=== PATIENT | female | born 1965 | race Caucasian/White ===

== ENCOUNTER 2024-01-11 19:51 | Inpatient (IN) | payer MEDICARE, MEDICAID, SELFPAY ==
[2024-01-11] VITALS (13 sets, daily range): BP systolic 107–163; BP diastolic 68–83; PULSE 66–83; RESP 16; TEMP 36.5; O2SAT 93–99; BMI 47.6; BMI 47.5; BMI 52.5
[2024-01-11] MEDS: EPINEPHRINE HCL PF 1 MG/ML AMPULE 0.3 MG SUBQ (19:52)
[2024-01-11] MEDS: IPRATROPIUM/ALBUTEROL SULFATE 3 ML AMPUL.NEB IH ×3 (19:55→22:06)
[2024-01-11] MEDS: METHYLPREDNISOLONE SOD SUCC PF 125 MG/2 ML VIAL IVP (19:55)
--- NOTE | 2024-01-11 19:58 | XR_ITS ---
[place] [id number] Patient Name: ESTELLE CARSON MRN: [id number] date: 1965 Sex: F Assigned Patient Location: ED.MAIN Current Patient Location: ED.MAIN Accession/Order Number: [id number] Exam Date: 01/11/2024 20:00 Report Date: 01/11/2024 21:19 At the request of: GIORGIO MARKER Procedure: XR chest 1V EXAMINATION: XR chest 1V, , 01/11/2024 8:00 PM EDT INDICATION: SOB HISTORY: Ordering Provider Reason for Exam: SOB Technologist Note: Additional: COMPARISON: XR CHEST 2 V Date 03/18/2022 TECHNIQUE: Chest x-ray: One view. FINDINGS: No pneumothorax, pleural effusion or focal airspace consolidation. Heart is normal in size. Bony thorax is unremarkable. XR/XR chest 1V IMPRESSION: No acute cardiopulmonary process. Electronically authenticated by: BARBIE HUGGINS Date: 01/11/2024 21:19
[2024-01-11] MEDS: 0.9 % SODIUM CHLORIDE 500 ML IV (20:00)
[2024-01-11 20:05] LABS: Basophils Absolute Auto 0.1 10^3/uL (0.0-0.1); Basophils Percent Auto 0.6 % (0.2-2.0); Eosinophils Absolute Auto 0.2 10^3/uL (0.0-0.7); Eosinophils Percent Auto 1.5 % (0.9-7.0); Hemoglobin 12.8 g/dL (12.0-16.0); Immature Granulocytes Abs Auto 0.12 10^3/uL (0.00-0.03); Immature Granulocytes Pct Auto 1.1 % (0.0-0.5); Lymphocytes Absolute Auto 3.1 10^3/uL (1.2-3.8); Lymphocytes Percent Auto 28.8 % (20.5-60.0); Mean Corpuscular HGB Conc 30.5 g/dL (29.9-35.2); Mean Corpuscular Volume 78.7 fL (81.0-99.0); Mean Platelet Volume 9.5 fL (9.5-13.5); Monocytes Absolute Auto 0.7 10^3/uL (0.3-0.8); Monocytes Percent Auto 6.4 % (1.7-12.0); Neutrophils Absolute Auto 6.7 10^3/uL (1.4-6.5); Neutrophils Percent Auto 61.6 % (43.0-75.0); Platelet Count 430 10^3/uL (150-450); Red Blood Count 5.34 10^6/uL (4.20-5.40); Red Cell Distribution Width 15.6 % (11.0-15.0); White Blood Count 10.9 10^3/uL (4.0-11.0)
--- NOTE | 2024-01-11 20:14 | ED_ITS ---
HPI - SOB/Dyspnea General Chief Complaint: Shortness of Breath/Dyspnea Stated Complaint: Code Blue Time Seen by Provider: 01/11/24 19:57 Source: patient Mode of arrival: Wheelchair Limitations: no limitations History of Present Illness HPI Narrative: This 58-year-old female who has a history of COPD who is oxygen dependent is brought to the emergency department by her daughter. The patient had come to this hospital to pick her daughter who is a nurse up for work. The daughter noted that the patient was not wearing her oxygen and the patient stated to her daughter that she had forgot to bring it. She was audibly wheezing in the car and the daughter told her she would need to get a breathing treatment as soon as she got home but her condition worsened and her daughter took control of the car and brought her to the emergency department. Upon arrival she was in moderate to severe respiratory distress but not unresponsive. She was taken to room 6 and placed on BiPAP. She was given a DuoNeb, subcutaneous epinephrine, IV Solu- Medrol with rapid clinical improvement. She has not had a fever and denies any chest pain. Related Data Allergies Allergy/AdvReac Type Severity Reaction Status Date / Time No Known Drug Allergies Allergy Verified 01/11/24 20:12 Review of Systems ROS Status of ROS 10 or more systems reviewed and unremark able except as noted in history and below Exam Narrative Exam Narrative: Vital signs and Nursing Notes reviewed: General: Awake, somewhat becoming poorly responsive upon arrival with respiratory distress and audible expiratory wheezing HEENT: Normocephalic atraumatic, mucous membranes are moist and pink, eyes are clear, normal conjunctiva, vision is grossly intact Chest: Bilateral inspiratory and expiratory wheezing with accessory muscle use and respiratory distress upon arrival, no rhonchi or rales CVS: Regular rate and rhythm S1-S2, no murmurs rubs or gallops, pulses are brisk and equal bilaterally ABD: Soft, nondistended, nontender, no rebound guarding or rigidity, bowel sounds are normal, no pulsatile masses appreciated Extremities: Moving all extremities, no lower extremity tenderness or swelling noted, negative Homans' sign, pulses are brisk and equal bilaterally Skin: Normal in appearance without rash,pallor, petechiae or purpura Neuro: No focal deficits Constitutional Vital Signs, click to edit/add: Last Vital Signs Temp 97.7 F 01/11/24 20:03 Pulse 71 01/11/24 20:03 Resp 28 H 01/11/24 20:03 Pulse Ox 93 L 01/11/24 20:40 O2 Del Method BIPAP 01/11/24 20:40 FiO2 28 01/11/24 20:40 Course Vital Signs Vital signs: Vital Signs Pulse Rate 80 01/11/24 19:55 Respiratory Rate 30 H 01/11/24 19:55 Pulse Oximetry 99 01/11/24 19:55 Oxygen Delivery Method BIPAP 01/11/24 19:55 Fraction of Inspired Oxygen 100 01/11/24 19:55 Temperature 97.7 F 01/11/24 20:03 Pulse Rate 71 01/11/24 20:03 Respiratory Rate 28 H 01/11/24 20:03 Pulse Oximetry 93 L 01/11/24 20:40 Oxygen Delivery Method BIPAP 01/11/24 20:40 Fraction of Inspired Oxygen 28 01/11/24 20:40 MDM - SOB/Dyspnea MDM Narrative Medical decision making narrative: This 58-year-old female with a history of COPD/asthma is brought to the emergency department by her daughter for respiratory distress that started immediately prior to arrival. The patient is home oxygen dependent and came to pick her daughter up from this facility without wearing her oxygen. She started having an asthma attack in the car which worsened prior to arrival. Upon arrival she was in moderate respiratory distress with diffuse expiratory wheezing. She was taken to room 6 and immediately evaluated by myself, the nursing staff and respiratory therapy. She was placed on BiPAP and given a DuoNeb. She was given subcu epi, Solu-Medrol, IV magnesium and IV fluids with clinical improvement. Shortly after her treatment she was able to speak short sentences. She denies any chest pain. She has had some upper respiratory symptoms in the past several days and she was swabbed for COVID and influenza. She has remained hemodynamically stable in the emergency department. She has a normal white count and hemoglobin. EKG done after she was calm enough to get an EKG was a sinus rhythm at 66 bpm with no acute changes. Troponin, BNP and electrolytes are normal with exception of a mildly elevated creatinine at 1.09. Checks x-ray shows chronic changes with a stable infiltrate in the right upper lobe that was present in 2021 as well and appears unchanged. Final x-ray report is pending at the time of this dictation. The patient does see Dr. Trujillo, pulmonology. Case was discussed with the hospitalist and she is excepted for admission to the ICU. Medical Records Attestation: I reviewed the patient's medical records. Lab Data Attestation: I reviewed the patient's lab results. Labs: Lab Results 01/11/24 Range/Units 19:50 WBC 10.9 (4.0-11.0) 10^3/uL RBC 5.34 (4.20-5.40) 10^6/uL Hgb 12.8 (12.0-16.0) g/dL Hct 42.0 (36.0-48.0) % MCV 78.7 L (81.0-99.0) fL MCH 24.0 L (26.7-34.0) pg MCHC 30.5 (29.9-35.2) g/dL RDW 15.6 H (11.0-15.0) % Plt Count 430 (150-450) 10^3/uL MPV 9.5 (9.5-13.5) fL Neut % (Auto) 61.6 (43.0-75.0) % Lymph % (Auto) 28.8 (20.5-60.0) % Harmon % (Auto) 6.4 (1.7-12.0) % Eos % (Auto) 1.5 (0.9-7.0) % Baso % (Auto) 0.6 (0.2-2.0) % Neut # (Auto) 6.7 H (1.4-6.5) 10^3/uL Lymph # (Auto) 3.1 (1.2-3.8) 10^3/uL Harmon # (Auto) 0.7 (0.3-0.8) 10^3/uL Eos # (Auto) 0.2 (0.0-0.7) 10^3/uL Baso # (Auto) 0.1 (0.0-0.1) 10^3/uL Abs Immat Gran (auto) 0.12 H (0.00-0.03) 10^3/uL Imm/Tot Granulo (auto) 1.1 H (0.0-0.5) % Sodium 139 (136-145) mmol/L Potassium 4.7 (3.5-5.1) mmol/L Chloride 100 (98-107) mmol/L Carbon Dioxide 30.9 (21.0-32.0) mmol/L Anion Gap 12.8 BUN 33.0 H (7.0-18.0) mg/dL Creatinine 1.09 H (0.55-1.02) mg/dL Est GFR ( Amer) >60 (>=60) Est GFR (Non-Af Amer) 51 L (>=60) BUN/Creatinine Ratio 30.3 Glucose 92 (74-106) mg/dL Calcium 9.5 (8.5-10.1) mg/dL Total Bilirubin 0.2 (0.2-1.0) mg/dL AST 11 L (15-37) U/L ALT 27 (14-59) U/L Alkaline Phosphatase 141 H (46-116) U/L Troponin I High Sens 4.1 (4.0-51.3) pg/mL NT-Pro-B Natriuret Pep 44.0 (<=900.0) pg/mL Total Protein 7.7 (6.4-8.2) g/dL Albumin 3.6 (3.4-5.0) g/dL Globulin 4.1 g/dL Albumin/Globulin Ratio 0.9 ECG Data Attestation: I personally reviewed and interpreted this ECG as follows: (Sinus rhythm at 66 bpm, low voltage, no acute ST segment elevation or T wave inversion) Critical Care Time Critical Care Time Critical Care Time: Yes Total Critical Care Time: 35 Attestation: Patient was evaluated and treatment after a CODE BLUE was called from the lobby for respiratory distress, treatment was provided including placement on BiPAP, subcu epi, treatment of respiratory distress and asthma exacerbation with clinical improvement Discharge Plan Discharge Chief Complaint: Shortness of Breath/Dyspnea Clinical Impression: Asthma with acute exacerbation, Acute exacerbation of chronic obstructive pulmonary disease Print Language: Czech Referrals: Garry Desir MD [Primary Care Provider] - 1 week
[2024-01-11] MEDS: LORAZEPAM 2 MG/ML VIAL 1 MG IV (20:16)
[2024-01-11 20:24] LABS: Alanine Aminotransferase 27 U/L (14-59); Albumin Globulin Ratio 0.9; Albumin Level 3.6 g/dL (3.4-5.0); Alkaline Phosphatase 141 U/L (46-116); Anion Gap 12.8; Aspartate Amino Transferase 11 U/L (15-37); BUN Creatinine Ratio 30.3; Bilirubin Total 0.2 mg/dL (0.2-1.0); Calcium 9.5 mg/dL (8.5-10.1); Carbon Dioxide 30.9 mmol/L (21.0-32.0); Chloride 100 mmol/L (98-107); Estimated GFR (African America >60 (>=60); Estimated GFR (Non-African Ame 51 (>=60); Globulin 4.1 g/dL; Glucose 92 mg/dL (74-106); Potassium 4.7 mmol/L (3.5-5.1); Sodium 139 mmol/L (136-145); Total Protein 7.7 g/dL (6.4-8.2); Troponin I High Sensitivity 4.1 pg/mL (4.0-51.3)
[2024-01-11] MEDS: MAGNESIUM SULFATE IN WATER 2 GM/50 ML PREMIX IV (20:30)
--- NOTE | 2024-01-11 20:42 | PC.NURSE ---
PATIENT TAKEN FROM CAR IN SEVERE RESPIRATORY DISTRESS TO ROOM 6 WHERE SHE WAS PLACED ON BI-PAP IMMEDIATELY 17/12 AND 60% 2 RESPIRATORY TECHS 3 NURSES AND AT CART SIDE.
[2024-01-11 22:07] LABS: Influenza Virus A Antigen Negative; Influenza Virus B Antigen Negative; Internal Control Within Normal Limits; SARS-CoV-2 Ag NEGATIVE (NEGATIVE)
[2024-01-11] MEDS: ENOXAPARIN SODIUM 40 MG/0.4 ML SYRINGE SUBQ (23:01)
[2024-01-11] MEDS: CEFTAZIDIME 2,000 MG in 0.9 % SODIUM CHLORIDE 100 ML 200 MG IV (23:02)
[2024-01-11] MEDS: 0.9 % SODIUM CHLORIDE 1,000 ML 75 ML IV (23:02)
--- NOTE | 2024-01-11 23:40 | PC.NURSE ---
Bilat toes red/purple
[2024-01-12] VITALS (83 sets, daily range): BP systolic 110–139; BP diastolic 60–92; PULSE 74–110; RESP 16; TEMP 36.4–36.8; O2SAT 91–97
[2024-01-12] MEDS: IPRATROPIUM/ALBUTEROL SULFATE 3 ML AMPUL.NEB IH ×4 (02:35→20:15)
[2024-01-12] MEDS: CEFTAZIDIME 2,000 MG in 0.9 % SODIUM CHLORIDE 100 ML 200 MG IV (05:25)
--- OUTSIDE RECORDS SUMMARY | 2024-01-12 06:07 | XMS_ITS | CCD ---
Author Organization [facility] CliniSywy Care Team Providers Care Patient Registrar Name Role Phone Morena Bravo Unavailable Vipul Jimenez Unavailable Radha Markham Unavailable Morena Bravo Unavailable DO Morena Bravo Primary Care Provider [phone] DO Morena Bravo Attending Provider Jaquelin Ac Unavailable Clara Adams Unavailable DO Cristal Bass Emergency Provider DO Morena Bravo Primary Care Provider [phone] DO Morena Bravo Attending Provider DO Salvatore Rasmussen Emergency Provider DO Amish Mills Admit Provider DO Amish Mills Attending Provider [phone] MATTHEW, DR SCHMITT Primary Care Unavailable PAY, DR POLANCO Admitting Unavailable PAY, DR POLANCO Attending Unavailable KRISTY, DR GIFTY Emery Consulting Unavailable PAY, DR POLANCO Consulting Unavailable MATTHEW, DR SCHMITT Primary Care Unavailable NELLIE, DR LUDIVINA Martinez Consulting Unavailable SAMSA, NIRAV Admitting Unavailable SAMSA, NIRAV Attending Unavailable OFELIA, DR CLEMONS Consulting Unavailable SAMSA, NIRAV Consulting Unavailable MARKELSIE MENCHACA Consulting Unavailable JORDAN MARCIAL Consulting Unavailable DO Shelly Morena E Primary Care Provider [phone] DO Cristal Bass Emergency Provider Schwerer, DO Morena E Attending Provider DO Salvatore Rasmussen Emergency Provider DO Amish Mills Admit Provider DO Amish Mills Attending Provider MD Jaquelin Ac Attending Provider [phone] Schwerer, DO Morena E Primary Care Provider [phone] Schwerer, DO Morena E Referring Provider Self, Referral Attending Provider Unavailable Schwerer, DO Morena E Primary Care Provider [phone] Schwerer, DO Morena E Attending Provider JeffMayo Unavailable Schwerer, DO Morena E Primary Care Provider Schwerer, DO Morena E Attending Provider DO Cassandra Nirav P Attending Provider MD Sanya Valadez Attending Provider MD Maday Jarvis Referring Provider [phone] Sanya Valadez Admitting Unavai lable Sanya Valadez Attending Unavai lable Schwerer, Morena E Primary Care Unavailable Schwerer, Morena E Attending Unavailable Schwerer, Morena E Admitting Unavailable Schwerer, Morena E Primary Care Unavailable Schwerer, Morena E Primary Care Unavailable Schwerer, Morena E Attending Unavailable Schwerer, Morena E Admitting Unavailable Schwerer, Morena E Primary Care Unavailable Schwerer, Morena E Attending Unavailable Schwerer, Morena E Admitting Unavailable Schwerer, Morena E Primary Care Unavailable Samsa, Nirav P Admitting Unavailable Samsa, Inrav P Attending Unavailable Samsa, Nirav P Attending Unavailable Schwerer, Morena E Primary Care Unavailable Samsa, Nirav P Admitting Unavailable Samsa, Nirav P Admitting Unavailable Samsa, Nirav P Attending Unavailable Morena Bravo Primary Care Unavailable Maday Jarvis Referring Unavailable Morena Bravo Primary Care Unavailable Sanya Valadez Admitting Unavacory labgerard Valadez, Sanya Mcneil Attending Morena Donaldson Primary Care Unavailable Sanya Valadez Admitting Unavai labgerard Valadez, Sanya Mcneil Attending DO Morena Donaldson Primary Care Provider [phone] DO Nirav Trujillo Attending Provider MD Sanya Valadez Attending Provider Allergies Allergy Classification Reported Allergen(s) Allergy Type Date of Onset Reaction(s) Facility (20 sources) Codeine Drug Allergy dizziness/nause a [employer] Other (1 source) Codeine Drug Allergy [address] [place] [address] Repository Medications Current Medications Medication Drug Class(es) Dates Sig (Normalized) Sig (Original) 0.25 MG, 0.5 MG Dose 3 ML semaglutide 0.68 MG/ML Pen Injector [Ozempic] (3 sources) inject 0.5 mg by subcutaneous injection every week Ozempic (0.25 or 0.5 MG/DOSE) 2 MG/3ML 0.5 mg Subcutaneous weekly for 28 days Active albuterol 0.83 mg/ml inhalation solution (20 sources) beta2-Adrenergic Agonist Start: 02-24-2022 Albuterol Sulfate (2.5 MG/3ML) 0.083% 3 mL as needed Inhalation every 6 hrs Feb, Active Start: 02-24-2022 Albuterol Sulf ate (2.5 MG/3ML) 0.083% 3 mL as needed Inhalation every 6 hrs Feb, Active Start: 03-22-2021 take 2 puff(s) by in halation every four to six hours as needed Albuterol Sulfate HFA 108 (90 Base) MCG/ACT 2 puffs as needed Inhalation every 4-6 hours for 14 days Mar, Active Start: 03-16-2019 End: 02-24-2022 take 1 puff(s) by inhalation every four to six hours Albuterol Sulfate (Proventil Hfa) 90 mcg/actuation Hfa Aerosol Inhaler Discontinued 2 PUFF INHALATION EVERY 4-6 HOURS February 06, 2022 12:00am February 24, 2022 8:51pm Start: 06-28-2018 End: 03-16-2019 take 2.5 mg by inhalation four times daily Albuterol Sulfate Active 2.5 MG INHALATION Four times daily - Respiratory 0 March 16, 2019 3:22pm Start: 06-27-2018 End: 03-16-2019 take 1 puff(s) by inhalation every four to six hours Albuterol Sulfate Discontinued 2 PUFF INHALATION EVERY 4-6 HOURS June 27, 2018 12:00am March 16, 2019 2:20pm Start: 06-27-2018 End: 03-16-2019 take 1 puff(s) by inhalation every four to six hours Albuterol Sulfate Discontinued 2 PUFF INHALATION EVERY 4-6 HOURS June 27, 2018 1:00am March 16, 2019 3:20pm Start: 06-03-2018 End: 06-26-2018 take 2.5 mg by inhalation every four to six hours Albuterol Sulfate Discontinued 2.5 MG INHALATION EVERY 4-6 HOURS June 03, 2018 1:00am June 26, 2018 3:10pm take 1 puff(s) by in halation every four hours as needed Albuterol Sulfate HFA 108 (90 Base) MCG/ACT 1 puff as needed Inhalation every 4 hrs for 90 days Active take 1 puff(s) by in halation every four hours as needed Albuterol Sulfate HFA 108 (90 Base) MCG/ACT 1 puff as needed Inhalation every 4 hrs for 90 days Active take 1 puff(s) by in halation every four hours as needed Albuterol Sulfate HFA 108 (90 Base) MCG/ACT 1 puff as needed Inhalation every 4 hrs for 90 days Active amoxicillin 875 mg / clavulanate 125 mg oral tablet (20 sources) Penicillin-class Antibacterial Start: 03-18-2022 take 1 tablet by mouth every twelve hours Amoxicillin-Pot Clavulanate 875-125 MG 1 tablet Orally every 12 hrs for 10 day(s) Mar, Active Start: 12-23-2017 End: 12-29-2017 take 1 tablet by mouth twice daily Amoxicillin-Pot Clavulanate Discontinued 1 TAB PO Twice daily 14 7 December 23, 2017 12:00am December 29, 2017 8:34am aspirin 81 mg delayed release oral tablet (11 sources) Platelet Aggregation Inhibitor, Nonsteroidal Anti-inflammatory Drug Start: 10-22-2023 End: 10-28-2023 Aspirin (Adult Low Dose Aspirin) 81 mg tablet,delayed release (DR/EC) Active 81 MG PO Every morning October 28, 2023 12:00am atorvastatin 40 mg oral tablet (20 sources) HMG-CoA Reductase Inhibitor Start: 12-11-2023 take 40 mg by mouth once daily Atorvastatin Active 40 MG PO Daily December 11, 2023 11:28am Start: 12-02-2023 End: 12-11-2023 take 1 tablet by mouth once daily at bedtime Atorvastatin Discontinued 0 .ROUTE .COMPLEX 90 December 02, 2023 10:42am December 11, 2023 11:28am TAKE 1 TABLET BY MOUTH EVERYDAY AT BEDTIME Start: 10-22-2023 End: 12-02-2023 take 40 mg by mouth once daily in the morning Atorvastatin Discontinued 40 MG PO Every morning October 28, 2023 12:00am December 02, 2023 10:42am Start: 10-26-2020 End: 10-22-2023 take 10 mg by mouth at bedtime Atorvastatin Discontinu ed 10 MG PO Bedtime December 31, 2020 12:00am August 28, 2023 1:52pm azithromycin 250 mg oral tablet (20 sources) Macrolide Antimicrobial Start: 03-18-2022 Azithromycin 250 MG 2 tablet on the first day, then 1 tablet daily for 4 days Orally Once a day for 5 day(s) Mar, Active Start: 10-01-2020 End: 12-31-2020 take 500 mg by mouth once daily Azithromycin Discontinued 500 MG PO Daily 3 3 October 01, 2020 12:00am December 31, 2020 6:31am Start: 03-16-2019 End: 06-22-2019 Azithromycin Discontinued 25 0 MG PO Daily 2 2 March 16, 2019 1:00am June 22, 2019 9:40am next dose due 03/17 bumetanide 0.5 mg oral tablet (20 sources) Loop Diuretic Start: 07-21-2023 take 1 tablet by mouth twice daily Bumetanide Active 0 .ROUTE .COMPLEX 180 July 21, 2023 3:44pm TAKE 1 TABLET BY MOUTH TWICE A DAY Start: 10-01-2020 End: 07-21-2023 take 0.5 mg by mouth twice daily Bumetanide Discontinued 0.5 MG PO BID@0800,1600 60 30 October 01, 2020 12:00am July 21, 2023 3:44pm Start: 05-17-2020 End: 09-27-2020 take 0.5 mg by mouth twice daily Bumetanide Discontinued 0.5 MG PO Twice daily May 17, 2020 1:00am September 27, 2020 1:12pm 24 hr buPROPion hydrochloride 150 mg extended release oral tablet (20 sources) Aminoketone Start: 12-24-2023 take 150 mg by mouth once daily Bupropion Hcl Active 150 MG PO Daily December 24, 2023 12:00am Start: 12-29-2017 End: 01-25-2018 take 100 mg by mouth twice daily Bupropion Hcl Discontinued 100 MG PO BID@0800,1400 60 December 29, 2017 12:00am January 25, 2018 8:28am Cpap (Continuous Positive rway Pressure) (13 sources) Start: 08-27-2023 Cpap (Continuo us Positive Airway Pressure) Active 0 .Route August 27, 2023 12:00am DME [facility] 2 liters oxygen bleed Start: 08-27-2023 Cpap (Continuo us Positive Airway Pressure) Active 0 .ROUTE August 27, 2023 12:00am DME [facility] 2 liters oxygen bleed Cxneaqxincy-Flfyxanci-Opftou er (18 sources) Start: 10-28-2023 Fglslyuwleb-Wgknshrzl-Gzfxvf er (Trelegy Ellipta) 200-62.5-25 mcg blister with device Active 1 INH INHALATION every day at noon October 28, 2023 12:00am Rinse after use. Dispense 3 inhalers Start: 08-27-2023 End: 10-28-2023 Tmduxhwhlah-Zpeoshcae-Fgjczt er (Trelegy Ellipta) 200-62.5-25 mcg blister with device Discontinued 1 INH INHALATION Daily 180 90 August 27, 2023 12:00am October 28, 2023 8:21am Rinse after use. Dispense 3 inhalers Start: 08-27-2023 Fluticasone-Um eclidin-Vilanter (Trelegy Ellipta) 200-62.5-25 mcg blister with device Active 1 INH INHALATION Daily 180 90 August 27, 2023 12:00am Rinse after use. Dispense 3 inhalers 120 actuat formoterol fumarate 0.005 mg/actuat / mometasone furoate 0.2 mg/actuat metered dose inhaler (3 sources) Corticosteroid, beta2-Adrenergic Agonist Start: 11-03-2019 take 1 puff(s) by inhalation twice daily Mometasone-Formoterol (Dulera) 200-5 mcg/actuation HFA aerosol inhaler Active 1 PUFF INHALATION Twice daily November 03, 2019 12:00am Ibuprofen (20 sources) Nonsteroidal Anti-inflammatory Drug Start: 06-19-2023 take 1 tablet by mouth three times daily at mealtime as needed Ibuprofen Active 0 .ROUTE .COMPLEX June 19, 2023 10:25am TAKE 1 TABLET BY MOUTH THREE TIMES A DAY WITH FOOD OR MILK NEEDED Start: 06-18-2023 End: 06-19-2023 take 1 tablet by mouth three times daily at mealtime as needed Ibuprofen Discontinued MG PO Three times daily June 18, 2023 1:00am June 19, 2023 10:25am Free[employer]: TAKE 1 TABLET BY MOUTH THREE TIMES A DAY WITH FOOD OR MILK NEEDED; Note: Source Status: Taking; Refills: 1; Qty: 90 Tablet; Provider: Shelly Berg ( ) Start: 11-22-2021 take 1 tablet by rico th three times daily at mealtime as needed Ibuprofen 600 MG 1 tablet with food or milk as needed Orally Three times a day Nov, Active Start: 11-03-2019 End: 09-27-2020 take 800 mg by mouth three times daily Ibuprofen Discontinued 800 MG PO Three times daily November 03, 2019 12:00am September 27, 2020 9:23am Start: 06-03-2018 End: 06-26-2018 take 200 mg by mouth every four to six hours Ibuprofen Discontinued 200 MG PO EVERY 4-6 HOURS June 03, 2018 1:00am June 26, 2018 3:13pm ipratropium bromide 0.2 mg/ml inhalation solution (20 sources) Anticholinergic Start: 08-20-2023 End: 10-22-2023 Ipratropium [place] Active 0.5 MG INHALATION Every 8 hours October 22, 2023 12:54pm Free[employer]: INHALE CONTENTS OF 1 VIAL PER NEBULIZER EVERY 8 HOURS FOR 30 DAYS*J44.1*; Note: Source Status: Not-Taking\PRN; Refills: 2; Qty: 250 Milliliter; Provider: Shelly Berg ( ) Start: 02-24-2022 take 2.5 mL by inhal ation every eight hours Ipratropium [place] 0.02 % 2.5 mL Inhalation every 8 hrs for 30 day(s) with albuterol neb Feb, Active Start: 06-28-2018 End: 09-27-2020 take 0.5 mg by inhalation four times daily Ipratropium [place] Discontinued 0.5 MG INHALATION Four times daily - Respiratory 0 March 16, 2019 3:22pm September 27, 2020 9:23am Ipratropium Brom roland 0.02 % INHALE CONTENTS OF 1 VIAL PER NEBULIZER EVERY 8 HOURS FOR 30 DAYS*J44.1* for 30 Not-Taking/PRN Ipratropium Brom roland 0.02 % INHALE CONTENTS OF 1 VIAL PER NEBULIZER EVERY 8 HOURS FOR 30 DAYS*J44.1* for 30 Active levoFLOXacin 750 mg oral tablet (20 sources) Quinolone Antimicrobial Start: 02-24-2022 take 1 tablet by mouth once daily Levaquin 750 MG 1 tablet Orally Once a day Feb, Active Start: 03-19-2018 End: 04-14-2018 take 750 mg by mouth every twenty-four hours Levofloxacin Discontinued 750 MG PO Q24H 2 March 19, 2018 1:00am April 14, 2018 5:13pm lisinopril 2.5 mg oral tablet (20 sources) Angiotensin Converting Enzyme Inhibitor Start: 12-03-2023 take 1 tablet by mouth once daily Lisinopril Active 0 .ROUTE .COMPLEX 90 December 03, 2023 1:53pm TAKE 1 TABLET BY MOUTH EVERY DAY Start: 10-26-2020 End: 08-01-2024 take 2.5 mg by mouth once daily Lisinopril Discontinued 2.5 MG PO Daily December 31, 2020 12:00am July 17, 2023 7:54am methylPREDNISolone 4 mg oral tablet (4 sources) Corticosteroid Start: 03-22-2021 Medrol (Dontrell) 4 MG as directed Orally for daily dose take half with breakfast half with dinner for 6 days Mar, Active 24 hr metoprolol succinate 25 mg extended release oral tablet (11 sources) beta-Adrenergic Jacinda Start: 10-22-2023 End: 10-28-2023 take 25 mg by mouth once daily in the morning Metoprolol Succinate Active 25 MG PO Every morning October 28, 2023 12:00am Oxygen (13 sources) Start: 08-27-2023 Oxygen Active 0 .Route August 27, 2023 12:00am 2 liters continuous [facility] Start: 08-27-2023 Oxygen Active 0 .ROUTE August 27, 2023 12:00am 2 liters continuous [facility] ozempic (0.25 or 0.5 mg/dose) 2 mg/3ml solution pen-injector (5 sources) inject 0.5 mg by subcutaneous injection every week Ozempic (0.25 or 0.5 MG/DOSE) 2 MG/3ML INJECT 0.5MG VIA SUBCUTANEOUS ROUTE ONCE WEEKLY for 28 Active inject 0.5 mg by sub cutaneous injection every week Ozempic (0.25 or 0.5 MG/DOSE) 2 MG/3ML 0.5 mg Subcutaneous weekly Active microencapsulated potassium chloride 20 meq extended release oral tablet (20 sources) Start: 07-21-2023 take 20 mEq by mouth twice daily Potassium Chloride Active 20 MEQ PO Twice daily 180 July 21, 2023 3:43pm Start: 07-21-2023 End: 07-21-2023 take 1 tablet by mouth every twelve hours at mealtime Potassium Chloride Discontinued 20 MEQ PO Twice daily July 21, 2023 12:00am July 21, 2023 3:44pm FreeTextSig: TAKE 1 TABLET BY MOUTH EVERY 12 HOURS WITH FOOD; Note: Source Status: Taking; Refills: 1; Qty: 180 Tablet; Provider: Shelly Berg ( ) Start: 06-14-2021 End: 07-21-2023 Potassium Chloride (Klor-Con M10) 10 mEq tablet,ER particles/crystals Discontinued 20 MEQ PO Twice daily 60 June 14, 2021 2:41pm July 21, 2023 3:38pm Start: 11-03-2019 End: 06-14-2021 Potassium Chloride (Klor-Con M10) 10 mEq tablet,ER particles/crystals Discontinued 20 MEQ PO Three times daily November 03, 2019 12:00am June 14, 2021 2:41pm take 1 tablet by rico th every twelve hours at mealtime Klor-Con M20 20 MEQ TAKE 1 TABLET BY MOUTH EVERY 12 HOURS WITH FOOD for 90 Active take 1 tablet by rico th every twelve hours Klor-Con M20 20 MEQ 1 tablet with food Orally BID for 90 day(s) Active take 1 tablet by rico th every eight hours Klor-Con M20 20 MEQ 1 tablet with food Orally three times a day for 90 days Active 0.25 mg, 0.5 mg dose 1.5 ml semaglutide 1.34 mg/ml pen injector (4 sources) Start: 06-02-2022 Ozempic (0.25 or 0.5 MG/DOSE) 2 MG/1.5ML as directed Subcutaneous weekly for 30 days 0.25 mg weekly x 4 weeks then 0.5 mg weekly x 30 May, 2022 Active Semaglutide (20 sources) Start: 11-10-2023 inject 0.5 mg by subcutaneous injection every week Semaglutide (Ozempic) 0.25 mg or 0.5 mg (2 mg/3 mL) pen injector Active 0 .ROUTE .COMPLEX 3 November 10, 2023 7:55am INJECT 0.5MG VIA SUBCUTANEOUS ROUTE ONCE WEEKLY 28 Start: 09-10-2023 End: 11-10-2023 inject 0.5 mg by subcutaneous injection every week Semaglutide Discontinued 0.5 MG SUBCUT every week September 10, 2023 1:00pm November 10, 2023 7:55am FreeTextSig: INJECT 0.5MG VIA SUBCUTANEOUS ROUTE ONCE WEEKLY; Note: Source Status: Taking; Refills: 5; Qty: 3 Milliliter; Provider: Shelly Berg ( ) Start: 09-10-2023 inject 0.5 mg by sub cutaneous injection every week Semaglutide Active 0.5 MG SUBCUT every week September 10, 2023 1:00pm FreeTextSig: INJECT 0.5MG VIA SUBCUTANEOUS ROUTE ONCE WEEKLY; Note: Source Status: Taking; Refills: 5; Qty: 3 Milliliter; Provider: Shelly Berg ( ) Start: 09-10-2023 inject 0.5 mg by sub cutaneous injection every week Semaglutide Active MG SUBCUT every week September 10, 2023 1:00pm FreeTextSig: INJECT 0.5MG VIA SUBCUTANEOUS ROUTE ONCE WEEKLY; Note: Source Status: Taking; Refills: 5; Qty: 3 Milliliter; Provider: Shelly Berg ( ) Start: 07-27-2023 End: 09-10-2023 inject 0.5 mg by subcutaneous injection every week Semaglutide Discontinued MG SUBCUT July 27, 2023 12:00am September 10, 2023 1:00pm FreeTextSig: INJECT 0.5MG VIA SUBCUTANEOUS ROUTE ONCE WEEKLY; Note: Source Status: Taking; Refills: 5; Qty: 3 Milliliter; Provider: Shelly Berg ( ) Start: 07-27-2023 inject 0.5 mg by sub cutaneous injection every week Semaglutide Active MG SUBCUT July 27, 2023 12:00am FreeTextSig: INJECT 0.5MG VIA SUBCUTANEOUS ROUTE ONCE WEEKLY; Note: Source Status: Taking; Refills: 5; Qty: 3 Milliliter; Provider: Shelly Berg ( ) topiramate 25 mg oral tablet (20 sources) Start: 05-17-2020 take 25 mg by mouth once daily in the morning Topiramate Active 25 MG PO Every morning May 17, 2020 1:00am Trelegy Ellipta 100-62.5-25 MCG/INH (5 sources) Start: 11-22-2021 take 1 puff(s) by inhalation once daily Trelegy Ellipta 100-62.5-25 MCG/INH 1 puff Inhalation Once a day for 30 day(s) samples given Nov, Active Completed/Discontinued Medications Medication Drug Class(es) Dates Sig (Normalized) Sig (Original) acetaminophen 325 mg oral tablet (20 sources) Start: 01-23-2017 End: 12-23-2017 take 2 tablets by mouth every four hours Acetaminophen (Tylenol) 325 mg Tablet Discontinued 650 MG PO Q4H January 23, 2017 12:00am December 23, 2017 1:10pm benzonatate 100 mg oral capsule (20 sources) Non-narcotic Antitussive Start: 03-16-2019 End: 06-22-2019 Benzonatate Discontinued 100 MG PO Three times daily March 16, 2019 1:00am June 22, 2019 9:41am take scheduled for the next 3-4 days, then may change to prn cough benztropine mesylate 1 mg oral tablet (20 sources) Anticholinergic, Antihistamine Start: 06-03-2018 End: 06-26-2018 take 1 mg by mouth twice daily Benztropine Discontinued 1 MG PO Twice daily June 03, 2018 1:00am June 26, 2018 3:11pm caffeine 200 mg oral tablet (20 sources) Central Nervous System Stimulant, Methylxanthine Start: 01-23-2017 End: 12-23-2017 take 1 tablet by mouth twice daily Caffeine (Vivarin) 200 mg Tablet Discontinued 200 MG PO Twice daily January 23, 2017 12:00am December 23, 2017 1:10pm cephalexin 500 mg oral capsule (20 sources) Cephalosporin Antibacterial Start: 04-14-2018 End: 04-21-2018 take 1 capsule by mouth every twelve hours Cephalexin (Keflex) 500 mg capsule Discontinued 500 MG PO Q12H 14 April 14, 2018 1:00am April 21, 2018 1:02am Start: 10-26-2017 End: 12-21-2017 take 2 capsules by mouth twice daily Cephalexin (Keflex) 500 mg capsule Discontinued 1000 MG PO Twice daily 28 October 26, 2017 12:00am December 21, 2017 1:34pm 168 hr cloNIDine 0.05147 mg/hr transdermal system (20 sources) Central alpha-2 Adrenergic Agonist Start: 06-03-2018 End: 06-26-2018 apply 1 dose transdermal route every week Clonidine Discontinued 1 PATCH TRANSDERML every week June 03, 2018 1:00am June 26, 2018 3:12pm diclofenac sodium 75 mg delayed release oral tablet (20 sources) Nonsteroidal Anti-inflammatory Drug Start: 05-17-2020 End: 06-12-2021 take 75 mg by mouth twice daily Diclofenac Sodium Discontinued 75 MG PO Twice daily May 17, 2020 1:00am June 12, 2021 1:29pm Diclofenac & Menthol-Camphor 75 & 3-3 MG & % (20 sources) Diclofenac & Menthol-Camphor 75 & 3-3 MG & % as directed Combination twice daily Not-Taking/PRN Diclofenac & Men thol-Camphor 75 & 3-3 MG & % as directed Combination twice daily Active dicyclomine hydrochloride 20 mg oral tablet (20 sources) Anticholinergic Start: 01-17-2021 End: 08-27-2023 take 20 mg by mouth three times daily Dicyclomine Discontinued 20 MG PO Three times daily February 24, 2022 12:00am August 27, 2023 9:28am diphenhydrAMINE hydrochloride 25 mg oral capsule (20 sources) Histamine-1 Receptor Antagonist Start: 09-27-2020 End: 12-31-2020 take 1 capsule by mouth three times daily Diphenhydramine Hcl (Banophen) 25 mg Capsule Discontinued 25 MG PO Three times daily September 27, 2020 12:00am December 31, 2020 6:31am Start: 03-13-2019 End: 11-03-2019 take 1 tablet by mouth three times daily Diphenhydramine Hcl (Banophen) 25 mg Tablet Discontinued 25 MG PO Three times daily March 13, 2019 1:00am November 03, 2019 1:14pm famotidine 40 mg oral tablet (20 sources) Histamine-2 Receptor Antagonist Start: 03-13-2019 End: 06-12-2021 take 1 tablet by mouth once daily at bedtime Famotidine (Pepcid) 40 mg Tablet Discontinued 40 MG PO Daily at bedtime March 13, 2019 1:00am June 12, 2021 1:29pm Fluticasone-Umecl idin-Vilanter (20 sources) Anticholinergic, Corticosteroid, beta2-Adrenergic Agonist Start: 02-24-2022 End: 08-27-2023 Fluticasone-Umeclid in-Vilanter (Trelegy Ellipta) 100-62.5-25 mcg blister with device Discontinued 1 INH INHALATION Daily February 24, 2022 12:00am August 27, 2023 9:55am Start: 02-24-2022 Fluticasone-Um eclidin-Vilanter (Trelegy Ellipta) 100-62.5-25 mcg blister with device Active 1 INH INHALATION Daily February 23, 2022 11:00pm Start: 02-24-2022 Fluticasone-Um eclidin-Vilanter (Trelegy Ellipta) 100-62.5-25 mcg blister with device Active 1 INH INHALATION Daily February 24, 2022 12:00am Start: 11-22-2021 take 1 puff(s) by inhalation once daily Trelegy Ellipta 100-62.5-25 MCG/ACT 1 pu ff Inhalation Once a day samples given Nov, Active furosemide 20 mg oral tablet (20 sources) Loop Diuretic Start: 11-03-2019 End: 05-17-2020 take 1 tablet by mouth once daily Furosemide (Lasix) 20 mg tablet Discontinued 20 MG PO Daily November 03, 2019 12:00am May 17, 2020 7:16pm 12 hr guaiFENesin 600 mg extended release oral tablet (20 sources) Start: 10-01-2020 End: 12-31-2020 take 2 tablets by mouth twice daily, then take 1 tablet by mouth every twelve hours Guaifenesin (Mucinex) 600 mg Tablet Extended Release 12hr Discontinued 1200 MG PO Twice daily 28 11October 01, 2020 12:00am December 31, 2020 6:32am Start: 03-16-2019 End: 06-22-2019 take 2 tablets by mouth three to four times daily as needed for cough, then take 1 tablet by mouth every twelve hours as needed for cough Guaifenesin (Mucinex) 600 mg Tablet Extended Release 12hr Discontinued 1200 MG PO Twice daily March 16, 2019 1:00am June 22, 2019 9:41am take for next 3-4 days, then may change to prn cough/ congestion Start: 06-28-2018 End: 10-04-2018 take 2 tablets by mouth twice daily as needed, then take 1 tablet by mouth every twelve hours as needed Guaifenesin (Mucinex) 600 mg Tablet Extended Release 12hr Discontinued 1200 MG PO Twice daily June 28, 2018 11:24am October 04, 2018 3:30pm may Therapeutic interchange as needed for insurance coverage. Start: 06-03-2018 End: 06-26-2018 take 1 tablet by mouth every twelve hours, then take 1 tablet by mouth every twelve hours Guaifenesin (Mucinex) 1,200 mg Tablet Extended Release 12hr Discontinued 1200 MG PO Q12H June 03, 2018 1:00am June 26, 2018 3:13pm hydrOXYzine pamoate 25 mg oral capsule (20 sources) Antihistamine Start: 01-25-2018 End: 04-14-2018 take 25 mg by mouth twice daily Hydroxyzine Pamoate Discontinued 25 MG PO Twice daily 60 March 19, 2018 3:25pm April 14, 2018 5:13pm levothyroxine sodium 0.025 mg oral tablet (20 sources) l-Thyroxine Start: 05-17-2020 End: 10-28-2023 take 25 ug by mouth once daily Levothyroxine Discontinued 25 MCG PO Daily 90 July 21, 2023 3:44pm October 28, 2023 8:21am Levothyroxine So dium 25 MCG TAKE 1 TABLET BY MOUTH EVERY DAY IN THE MORNING ON EMPTY STOMACH FOR 90 DAYS for 90 Active lurasidone hydrochloride 40 mg oral tablet (20 sources) Atypical Antipsychotic Start: 03-13-2019 End: 05-17-2020 take 1 tablet by mouth once daily Lurasidone (Latuda) 40 mg Tablet Discontinued 40 MG PO Daily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 less than 100 mg/dL OptimalLDL 100-129 mg/dL Near or above optimalLDL 130-159 mg/dL Borderline highLDL 160-189 mg/dL HighLDL greater than 189 mg/dL Very high Cholesterol in VLDL Calc [Ma ss/Vol]Ordered By: Sanya Valadez on 10-28-2023 Cholesterol in VLDL [Mass/Vol] 27 mg/dL [facility] Coagulation Profileon 2023 aPTT Coag (Bld) [Time] 35.2 s Normal 25.1-36.5 [facility] Comment on above: Result Comment: A he matocrit value greater than 55% may lead to inaccurate results in coagulation testing. Patients having hematocrit values >55% require a special collection tube for coagulation studies. Please contact the laboratory at [phone] for redraw instructions. PERFORMED BY: [place] [address] PATHOLOGIST [employer] FINISH[employer] SKYLER CLARK M.D. Performed By: #### B UN, LIPID, CREAT, CBC, LYTES, PP #### [address] Complete Blood Count Auto Di ffon 10-28-2023 Mean Corpuscular HGB Conc 32.2 g/dL Normal 32.0-35.0 [facility] Comment on above: Performed By: #### B UN, LIPID, CREAT, CBC, LYTES, PP #### [address] NRBC% 0.1 /100{WBC} Normal 0-0.5 [facility] Comment on above: Performed By: #### B UN, LIPID, CREAT, CBC, LYTES, PP #### [address] Creatinineon 10-28-2023 GFR/1.73 sq M.predicted MDRD (S/P/Bld) [Vol rate/Area] mL/min/{1.73_m2} Normal [facility] Comment on above: Performed By: #### B UN, LIPID, CREAT, CBC, LYTES, PP ####[facility] [place] [address] Creatinine [Mass/volume] in Serum or PlasmaOrdered By: Sanya Valadez on 10-28-2023 Creatinine [Mass/Vol] 0.97 mg/dL 0.60-1.20 [facility] Comment on above: Performed By: #### B UN, LIPID, CREAT, CBC, LYTES, PP ####[facility] [address] ECG 12 lead ECGon 10-28-2023 ECG 12 lead ECG [facility] [address] [place] [address] [place] [address] Electrocardiograph Report Signed Patient: Cynthia Lozano MR#: [id number] 1502 : 1965 Acct:[id number] Age/Sex: 57 / F ADM Date: 10/28/23 Loc: Room: Type: [facility] Attending Dr: Sanya Valadez MD Ordering Provider: Sanya Valadez MD Date of Service: 10/28/23 ECG/ECG 12 lead ECG: [facility] PST Copies to: Test Reason : Blood Pressure : / mmHG Vent. Rate : 077 BPM Atrial Rate : 077 BPM P-R Int : 172 ms QRS Dur : 080 ms QT Int : 356 ms P-R-T Axes : 076 037 071 degrees QTc Int : 402 ms Normal sinus rhythm Low voltage QRS Borderline ECG When compared with ECG of 10-SEP-2023 13:05, Borderline criteria for Inferior infarct are no longer present Confirmed by DORIS ROQUE FACCRISTAL ([id number]) on 10/28/2023 12:48:20 PM Referred By: WILDA Electronically Signed By:CRISTAL GEORGE MD FAC Transcribed By: MUS Signed By Rian George MD 10/28/23 1248 Normal [facility] Erythrocyte distribution wid th [Ratio] by Automated countOrdered By: Sanya Valadez on 10-28-2023 Erythrocyte distribution width (RBC) [Ratio] 16.0 % High 11.9-15.3 [facility] Comment on above: Performed By: #### B UN, LIPID, CREAT, CBC, LYTES, PP #### [facility] [address] Erythrocytes [#/volume] in B lood by Automated countOrdered By: Sanya Valadez on 10-28-2023 RBC (Bld) [#/Vol] 5.22 10*6/uL High 3.60-5.00 [facility] Comment on above: Performed By: #### B UN, LIPID, CREAT, CBC, LYTES, PP #### [facility] [address] Hematocrit [Volume Fraction] of Blood by Automated countOrdered By: Sanya Valadez on 10-28-2023 Hematocrit (Bld) [Volume fraction] 39.5 % 34.0-46.4 [facility] Comment on above: Performed By: #### B UN, LIPID, CREAT, CBC, LYTES, PP #### [address] Hemoglobin [Mass/volume] in BloodOrdered By: Sanya Valadez on 10-28-2023 Hemoglobin (Bld) [Mass/Vol] 12.7 g/dL 11.8-15.4 [facility] Comment on above: Performed By: #### B UN, LIPID, CREAT, CBC, LYTES, PP #### [facility] [address] [place] [address] INR in Platelet poor plasma by Coagulation assayOrdered By: Sanya Valadez on 10-28-2023 INR Coag (PPP) [Relative time] 1.0 {INR} [facility] Comment on above: INR Therapeutic Rang e A) Pre- and Peroperative OAT started two weeks before surgery. NOT HIP SURGERY: 1.5 - 2.5 HIP SURGERY: 2 - 3B) Primary and secondary prevention of venous THROMBOSIS: 2 - 3C) Active venous thrombosis, pulmonary embolismand prevention of recurrent venous thrombosis: 2 - 3D) Prevention of arterial thromboembolismincluding patients with mechanical heart valves: 3 - 4.5 Result Comment: INR Therapeutic Range A) Pre- and Peroperative OAT started two weeks before surgery. NOT HIP SURGERY: 1.5 - 2.5 HIP SURGERY: 2 - 3 B) Primary and secondary prevention of venous THROMBOSIS: 2 - 3 C) Active venous thrombosis, pulmonary embolism and prevention of recurrent venous thrombosis: 2 - 3 D) Prevention of arterial thromboembolism including patients with mechanical heart valves: 3 - 4.5 Performed By: #### B UN, LIPID, CREAT, CBC, LYTES, PP #### [place] [address] [place] Leukocytes [#/volume] correc ceci for nucleated erythrocytes in Blood by Automated counOrdered By: Sanya Valadez on 10-28-2023 WBC corrected for nucl RBC Auto (Bld) [#/Vol] 8.9 10*3/uL 3.8-11.6 [facility] Leukocytes [#/volume] in Blo od by Automated countOrdered By: Sanya Valadez on 10-28-2023 WBC (Bld) [#/Vol] 8.9 10*3/uL 3.8-11.6 [facility] Comment on above: Performed By: #### B UN, LIPID, CREAT, CBC, LYTES, PP #### [facility] [address] Lipid Panelon 10-28-2023 LDL Cholesterol,Calculated 94 mg/dL Normal 0-100 [facility] Comment on above: Result Comment: LDL ATP III CLASSIFICATION LDL less than 100 mg/dL Optimal LDL 100-129 mg/dL Near or above optimal LDL 130-159 mg/dL Borderline high LDL 160-189 mg/dL High LDL greater than 189 mg/dL Very high Performed By: #### B UN, LIPID, CREAT, CBC, LYTES, PP ####[facility] Triglyceride w/Reflex 137 mg/dL Normal 0-149 [facility] Comment on above: Result Comment: TRIG ATP III CLASSIFICATION TRIG less than 150 mg/dL Normal TRIG 150-199 mg/dL Borderline high TRIG 200-500 mg/dL High TRIG greater than 500 mg/dL Very high Standard traceable to the Center for Disease Conrtrol and Prevention (CDC) test method. Performed By: #### B UN, LIPID, CREAT, CBC, LYTES, PP ####[facility] VLDL CHOLESTEROL 27 mg/dL Normal [facility] Comment on above: Performed By: #### B UN, LIPID, CREAT, CBC, LYTES, PP ####[facility] Lymphocytes [#/volume] in Bl ood by Automated countOrdered By: Sanya Valadez on 10-28-2023 Lymphocytes (Bld) [#/Vol] 2.2 10*3/uL 1.00-4.8 [facility] Comment on above: Performed By: #### B UN, LIPID, CREAT, CBC, LYTES, PP #### [facility] [address] [place] [address] Lymphocytes/100 leukocytes i n Blood by Automated countOrdered By: Sanya Valadez on 10-28-2023 Lymphocytes/100 WBC (Bld) 25.0 % . [facility] Comment on above: Performed By: #### B UN, LIPID, CREAT, CBC, LYTES, PP #### [address] MCH [Entitic mass] by Automa ceci countOrdered By: Sanya Valadez on 10-28-2023 MCH (RBC) [Entitic mass] 24.4 pg Low 24.7-34.3 [facility] Comment on above: Performed By: #### B UN, LIPID, CREAT, CBC, LYTES, PP #### [address] MCHC Auto (RBC) [Mass/Vol]Or dered By: Sanya Valadez on 10-28-2023 MCHC (RBC) [Mass/Vol] 32.2 g/dL 32.0-35.0 [facility] MCV [Entitic volume] by Auto mated countOrdered By: Sanya Valadez on 10-28-2023 MCV (RBC) [Entitic vol] 75.6 fL Low 80-100 [facility] Comment on above: Performed By: #### B UN, LIPID, CREAT, CBC, LYTES, PP #### [facility] [address] [place] [address] Neutrophils [#/volume] in Bl ood by Automated countOrdered By: Sanya Valadez on 10-28-2023 Neutrophils (Bld) [#/Vol] 6.0 10*3/uL 1.8-7.7 [facility] Comment on above: Performed By: #### B UN, LIPID, CREAT, CBC, LYTES, PP #### [facility] [address] No Panel InformationOrdered By: Sanya Valadez on 10-28-2023 Estimated GFR (CKD-EPI) > 60.0 mL/Min [facility] Creatinine Clearance (Chem N/A [facility] Nucleated erythrocytes [Pres ence] in Blood by Automated countOrdered By: Sanya Valadez on 10-28-2023 Nucleated RBC Auto Ql (Bld) 0.1 /100{WBC} 0-0.5 [facility] Platelet mean volume [Entiti c volume] in Blood by Automated countOrdered By: Sanya Valadez on 10-28-2023 Platelet mean volume (Bld) [Entitic vol] 7.7 fL 6.3-10.7 [facility] Comment on above: Performed By: #### B UN, LIPID, CREAT, CBC, LYTES, PP #### [facility] [address] [place] [address] Platelets [#/volume] in Bloo d by Automated countOrdered By: Sanya Valadez on 10-28-2023 Platelets (Bld) [#/Vol] 370 10*3/uL 150-450 [facility] Comment on above: Performed By: #### B UN, LIPID, CREAT, CBC, LYTES, PP #### [address] Potassium [Moles/volume] in Serum or PlasmaOrdered By: Sanya Valadez on 10-28-2023 Potassium [Moles/Vol] 5.0 mmol/L 3.5-5.1 [facility] Comment on above: Performed By: #### B UN, LIPID, CREAT, CBC, LYTES, PP ####[facility] [address] [place] [address] Prothrombin time (PT)Ordered By: Sanya Valadez on 10-28-2023 PT Coag (PPP) [Time] 11.7 s 9.0-12.9 [facility] Comment on above: A hematocrit value g reater than 55% may lead to inaccurate results in coagulation testing. Patients having hematocrit values >55% require a special collection tube for coagulation studies. Please contact the laboratory at [phone] for redraw instructions. Result Comment: A he matocrit value greater than 55% may lead to inaccurate results in coagulation testing. Patients having hematocrit values >55% require a special collection tube for coagulation studies. Please contact the laboratory at [phone] for redraw instructions. Performed By: #### B UN, LIPID, CREAT, CBC, LYTES, PP #### [facility] [address] Serum or plasma anion gap de terminationOrdered By: Sanya Valadez on 10-28-2023 Anion gap [Moles/Vol] 12.0 mmol/L 6.0-15.0 [facility] Comment on above: Performed By: #### B UN, LIPID, CREAT, CBC, LYTES, PP ####[facility] Serum or plasma high density lipoprotein (HDL) cholesterol measurementOrdered By: Sanya Valadez on 10-28-2023 Cholesterol in HDL [Mass/Vol] 48 mg/dL [facility] Comment on above: HDL CHOL ATP-III CLA SSIFICATION Cardiovascular RiskHDL > or equal to 60 mg/dL LOWHDL < 40 mg/dL HIGH Result Comment: HDL CHOL ATP-III CLASSIFICATION Cardiovascular Risk HDL > or equal to 60 mg/dL LOW HDL < 40 mg/dL HIGH Performed By: #### B UN, LIPID, CREAT, CBC, LYTES, PP ####[place] [address] [address] Serum or plasma total choles terol/high density lipoprotein (HDL) cholesterol mass ratOrdered By: Sanya Valadez on 10-28-2023 Cholesterol.total/Chol esterol in HDL [Mass ratio] 3.5 {ratio} <5.0 [facility] Comment on above: Result Comment: PERF ORMED BY: [place] [address] PATHOLOGIST [employer] FINISHER SKYLER CLARK M.D. Performed By: #### B UN, LIPID, CREAT, CBC, LYTES, PP ####[place] [address] [address] Sodium [Moles/volume] in Ser um or PlasmaOrdered By: Sanya Valadez on 10-28-2023 Sodium [Moles/Vol] 141 mmol/L 136-145 [facility] Comment on above: Performed By: #### B UN, LIPID, CREAT, CBC, LYTES, PP ####[place] [address] [address] Triglyceride [Mass/volume] i n Serum or PlasmaOrdered By: Sanya Valadez on 10-28-2023 Triglyceride [Mass/Vol] 137 mg/dL 0-149 [facility] Comment on above: TRIG ATP III CLASSIF ICATIONTRIG less than 150 mg/dL NormalTRIG 150-199 mg/dL Borderline highTRIG 200-500 mg/dL High TRIG greater than 500 mg/dL Very highStandard traceable to the Center for Disease Conrtrol and Prevention (CDC) test method. Urea nitrogen [Mass/volume] in Serum or PlasmaOrdered By: Sanya Valadez on 10-28-2023 Urea nitrogen [Mass/Vol] 29 mg/dL High 7-25 [facility] Comment on above: Performed By: #### B UN, LIPID, CREAT, CBC, LYTES, PP ####[place] [address] [place] [id number] [facility] NM darci perf SPECT rest stron 09-29-2023 NM darci perf SPECT rest str [facility] [address] [place] [address] [place] [address] Nuclear Medicine Report Signed Patient: Cynthia Lozano MR#: [id number] 1502 : 1965 Acct:[id number] Age/Sex: 57 / F ADM Date: 09/25/23 Loc: Room: Type: [facility] Attending Dr: Nirav Trujillo DO Copies to: MD Nirav Burdick DO Ordering Provider: Nirav Trujillo DO Date of Service: 09/25/23 NM/NM darci perf SPECT rest str: Shortness of breath, chest pain NUCLEAR MYOCARDIAL PERFUSION DATE OF PROCEDURE: 09/29/2023 ATTENDING CONTRACT ASSOCIATE: Dr. Sanya Valadez REQUESTING PHYSICIAN: Dr. Trujillo PROCEDURE: The patient received a stress dose of Lexiscan and was then injected with 27.0 millicuries of Technetium 99M Sestamibi. For rest images the patient was injected with 29.6 millicuries of Technetium 99M Sestamibi. FINDINGS: The raw cine images were reviewed. The post stress and rest perfusion images were reviewed as well as the computer quantification.? Extensive gut artifact with increased counts inferior to the heart may account for low detection in anterior wall. There is a medium size, moderate intensity partially reversible perfusion defect on the mid anterior wall consistent with ischemia. On the gated portion of the study, the overall ejection fraction calculated at 62%.?Hypokinesis of the basal lateral wall. TID score 1.0 is within normal limits. NM/NM darci perf SPECT rest str IMPRESSION: 1. SPECT Sestamibi myocardial perfusion study is abnormal. Partially reversible perfusion defect of the mid anterior wall consistent with ischemia. 2. Hypokinesis of the basal lateral wall. 3. Normal left ventricular systolic function. LVEF is 62%.? Impression dictated by: Sanya Valadez M.D.09/29/2023 6:28 PM Dictation Location: [place] [address] Transcribed By: GLORIA 09/29/231827 Dictated By: Sanya Valadez MD 09/29/231822 Signed By: 09/29/231827 Normal [facility] CT lung screening 09-24-19 CT lung screening [facility] [place] [address] CT Scan Report Signed Patient: Cynthia Lozano MR#: [id number] 1502 : 1965 Acct:[id number] Age/Sex: 57 / F ADM Date: 09/24/23 Loc: Room: Type: PRE CLI Attending Dr: Nirav Trujillo DO Copies to: Nirav Trujillo DO Ordering Provider: Nirav Trujillo DO Date of Service: 09/24/23 CT/CT lung screening: Z87.891 - Personal history of nicotine dependence CT CHEST WITHOUT CONTRAST, LOW DOSE SCREENING: CLINICAL DATA: A 57-year old former smoker, smoking for 30 pack-years. COMPARISON: CT chest 03/25/2022 TECHNIQUE: Noncontrast axial CT scan images of the chest were obtained under the low dose screening CT protocol. Coronal and sagittal reconstructed images were also submitted. FINDINGS: Mediastinum : Suboptimal evaluation due to low-dose technique. Thoracic aorta appears normal in caliber. Pulmonary trunk appears nondilated. No pericardial effusion. No lymphadenopathy. The esophagus is grossly unremarkable. Lungs: No focal consolidation, pneumothorax or pleural effusion. Trachea and distal airways appear patent. Predominantly subpleural calcification. Scattered areas of lung scarring. Diffuse bronchial wall thickening. No suspicious noncalcified pulmonary nodule or mass. Upper abdomen: No acute findings. Bony thorax and chest wall: Soft tissues surrounding the chest wall demonstrate no acute findings. Osseous structures demonstrate degenerative change. CT/CT lung screening IMPRESSION: NO SUSPICIOUS PULMONARY NODULE. LUNG - RADS Version 1.0 Assessment: Category 1, Negative (No nodules and definitely benign nodules). Management: Continue annual lung screening with LDCT in 12 months. Impression dictated by: Momo Saavedra Jr., D.O.09/24/2023 3:20 PM Dictation Location: [place] [address] Transcribed By: [facility] 09/24/23 1520 Dictated By: Momo Saavedra Jr, DO 09/24/23 1513 Signed By: 09/24/23 1520 Normal [facility] FPG ECG *OFFICE ONLY*on FPG ECG *OFFICE ONLY* [facility] [address] [place] [address] [place] [address] Electrocardiograph Report Signed Patient: Cynthia Lozano MR#: [id number] 1502 : 1965 Acct:[id number] Age/Sex: 57 / F ADM Date: 09/10/23 Loc: EKGCARDIO [facility] Dr: Sanya Valadez MD Ordering Provider: Sanya Valadez MD Date of Service: 09/10/2301/25/1255 ECG/FPG ECG *OFFICE ONLY*: R07.9 - Chest pain, unspecified Copies to: Test Reason : Blood Pressure : / mmHG Vent. Rate : 084 BPM Atrial Rate : 084 BPM P-R Int : 176 ms QRS Dur : 068 ms QT Int : 352 ms P-R-T Axes : 078 009 072 degrees QTc Int : 415 ms Normal sinus rhythm Low voltage QRS Abnormal ECG When compared with ECG of 10-SEP-2023 13:03, (Unconfirmed) QRS axis shifted right Confirmed by Sanya Valadez ([id number]) on 09/11/2023 12:58:03 PM Referred By: Electronically Signed By:Sanya Valadez Transcribed By: MUS Signed By Sanya Valadez MD 09/11/23 1258 Normal [facility] Alanine aminotransferase [En zymatic activity/volume] in Serum or PlasmaOrdered By: Morena Bravo on 08-27-2023 ALT [Catalytic activity/Vol] 17 U/L Normal 7-52 [facility] Comment on above: Performed By: #### C BC, LIPID, CMP #### [facility] [address] [place] [address] [place] Albumin [Mass/volume] in Ser um or Plasma by Bromocresol green (BCG) dye binding methoOrdered By: Morena Bravo on 08-27-2023 Albumin BCG dye [Mass/Vol] 4.4 g/dL 3.5-5.7 [facility] Alkaline phosphatase [Enzyma tic activity/volume] in Serum or PlasmaOrdered By: Morena Bravo on 08-27-2023 ALP [Catalytic activity/Vol] 101 U/L Normal 34-104 [facility] Comment on above: Performed By: #### C BC, LIPID, CMP #### [facility] [address] Aspartate aminotransferase [ Enzymatic activity/volume] in Serum or PlasmaOrdered By: Morena Bravo on 08-27-2023 AST [Catalytic activity/Vol] 13 U/L Normal 13-39 [facility] Comment on above: Performed By: #### C BC, LIPID, CMP #### [facility] [address] [place] [address] [place] Automated basophil %Ordered By: Morena Bravo on 08-27-2023 Basophils/100 WBC (Bld) 0.5 % Normal . [facility] Comment on above: Performed By: #### C BC, LIPID, CMP #### [address] Automated basophil countOrde red By: Morena Schwerer on 08-27-2023 Basophils (Bld) [#/Vol] 0.0 10*3/uL Normal 0.0-0.2 [facility] Comment on above: Result Comment: PERF ORMED BY: [place] [address] PATHOLOGIST [employer]ISH[employer] SKYLER CLARK M.D. Performed By: #### C BC, LIPID, CMP #### [address] Automated blood monocyte cou ntOrdered By: Morena Schwerer on 08-27-2023 Monocytes (Bld) [#/Vol] 0.4 10*3/uL Normal 0.0-0.8 [facility] Comment on above: Performed By: #### C BC, LIPID, CMP #### [address] Automated eosinophil %Ordere d By: Morena Ambrosior on 08-27-2023 Eosinophils/100 WBC (Bld) 1.9 % Normal . [facility] Comment on above: Performed By: #### C BC, LIPID, CMP #### [address] Automated eosinophil countOr dered By: Morena Schwerer on 08-27-2023 Eosinophils (Bld) [#/Vol] 0.2 10*3/uL Normal 0.0-0.45 [facility] Comment on above: Performed By: #### C BC, LIPID, CMP #### [address] Automated monocyte %Ordered By: Morena Schwerer on 08-27-2023 Monocytes/100 WBC (Bld) 5.0 % Normal . [facility] Comment on above: Performed By: #### C BC, LIPID, CMP #### [facility] [address] Automated neutrophil %Ordere d By: Morena Schwerer on 08-27-2023 Neutrophils/100 WBC (Bld) 61.8 % Normal . [facility] Comment on above: Performed By: #### C BC, LIPID, CMP #### [facility] [address] Bilirubin.total [Mass/volume ] in Serum or PlasmaOrdered By: Morena Schwerer on 08-27-2023 Bilirubin [Mass/Vol] 0.3 mg/dL Normal 0.3-1.0 [facility] Comment on above: Performed By: #### C BC, LIPID, CMP #### [address] Calcium [Mass/volume] in Ser um or PlasmaOrdered By: Morena Schwerer on 08-27-2023 Calcium [Mass/Vol] 10.5 mg/dL High 8.6-10.3 [facility] Comment on above: Performed By: #### C BC, LIPID, CMP #### [address] Carbon dioxide, total [Moles /volume] in Serum or PlasmaOrdered By: Morena Schwerer on 08-27-2023 CO2 [Moles/Vol] 28.5 mmol/L Normal 21.0-31.0 [facility] Comment on above: Performed By: #### C BC, LIPID, CMP #### [facility] [address] [place] [address] [place] Chloride [Moles/volume] in S jade or PlasmaOrdered By: Morena Schwerer on 08-27-2023 Chloride [Moles/Vol] 101 mmol/L Normal 98-107 [facility] Comment on above: Performed By: #### C BC, LIPID, CMP #### [address] Cholesterol [Mass/volume] in Serum or PlasmaOrdered By: Morena Schwerer on 08-27-2023 Cholesterol [Mass/Vol] 186 mg/dL Normal 140-200 [facility] Comment on above: Chol less than 200 m g/dl low riskChol 201-239 mg/dl borderline riskChol 240 mg/dl and greater high risk Result Comment: Chol less than 200 mg/dl low risk Chol 201-239 mg/dl borderline risk Chol 240 mg/dl and greater high risk Performed By: #### C BC, LIPID, CMP #### [facility] [address] Cholesterol in LDL Calc [Mas s/Vol]Ordered By: Morena Bravo on 08-27-2023 Cholesterol in LDL [Mass/Vol] 108 mg/dL High 0-100 [facility] Comment on above: LDL ATP III CLASSIFI CATIONLDL less than 100 mg/dL OptimalLDL 100-129 mg/dL Near or above optimalLDL 130-159 mg/dL Borderline highLDL 160-189 mg/dL HighLDL greater than 189 mg/dL Very high Cholesterol in VLDL Calc [Ma ss/Vol]Ordered By: Morena Bravo on 08-27-2023 Cholesterol in VLDL [Mass/Vol] 31 mg/dL [facility] Complete Blood Count Auto Di ffon 08-27-2023 Mean Corpuscular HGB Conc 32.0 g/dL Normal 32.0-35.0 [facility] Comment on above: Performed By: #### C BC, LIPID, CMP #### [facility] [address] NRBC% 0.1 /100{WBC} Normal 0-0.5 [facility] Comment on above: Performed By: #### C BC, LIPID, CMP #### [facility] [address] Comprehensive Metabolic Pane xochilt 08-27-2023 Albumin [Mass/Vol] 4.4 g/dL Normal 3.5-5.7 [facility] Comment on above: Performed By: #### C BC, LIPID, CMP #### [facility] [address] [place] [address] [place] GFR/1.73 sq M.predicted MDRD (S/P/Bld) [Vol rate/Area] mL/min/{1.73_m2} Normal [facility] Comment on above: Performed By: #### C BC, LIPID, CMP #### [address] Creatinine [Mass/volume] in Serum or PlasmaOrdered By: Morena Bravo on 08-27-2023 Creatinine [Mass/Vol] 0.86 mg/dL Normal 0.60-1.20 [facility] Comment on above: Performed By: #### C BC, LIPID, CMP #### [address] Erythrocyte distribution wid th [Ratio] by Automated countOrdered By: Morena Bravo on 08-27-2023 Erythrocyte distribution width (RBC) [Ratio] 16.3 % High 11.9-15.3 [facility] Comment on above: Performed By: #### C BC, LIPID, CMP #### [address] Erythrocytes [#/volume] in B lood by Automated countOrdered By: Morena Bravo on 08-27-2023 RBC (Bld) [#/Vol] 5.09 10*6/uL High 3.60-5.00 [facility] Comment on above: Performed By: #### C BC, LIPID, CMP #### [address] Glucose [Mass/volume] in Ser um or PlasmaOrdered By: Morena Bravo on 08-27-2023 Glucose [Mass/Vol] 91 mg/dL Normal 70-100 [facility] Comment on above: ADA recommended refe rence rangeRandom Glucose Reference Range is dependent on time and content of last meal. Glucose of more than 200 mg/dL in a nonstressed, ambulatory subject supports the diagnosis of Diabetes Mellitus. Result Comment: [place] om Glucose Reference Range is dependent on time and content of last meal. Glucose of more than 200 mg/dL in a nonstressed, ambulatory subject supports the diagnosis of Diabetes Mellitus. ADA recommended reference range Performed By: #### C BC, LIPID, CMP #### [address] Hematocrit [Volume Fraction] of Blood by Automated countOrdered By: Morena Bravo on 08-27-2023 Hematocrit (Bld) [Volume fraction] 39.2 % Normal 34.0-46.4 [facility] Comment on above: Performed By: #### C BC, LIPID, CMP #### [address] Hemoglobin [Mass/volume] in BloodOrdered By: Morena Bravo on 08-27-2023 Hemoglobin (Bld) [Mass/Vol] 12.6 g/dL Normal 11.8-15.4 [facility] Comment on above: Performed By: #### C BC, LIPID, CMP #### [address] Leukocytes [#/volume] correc ceci for nucleated erythrocytes in Blood by Automated counOrdered By: Morena Bravo on 08-27-2023 WBC corrected for nucl RBC Auto (Bld) [#/Vol] 8.4 10*3/uL 3.8-11.6 [facility] Leukocytes [#/volume] in Blo od by Automated countOrdered By: Morena Bravo on 08-27-2023 WBC (Bld) [#/Vol] 8.4 10*3/uL Normal 3.8-11.6 [facility] Comment on above: Performed By: #### C BC, LIPID, CMP #### [address] Lipid Panelon 08-27-2023 LDL Cholesterol,Calculated 108 mg/dL High 0-100 [facility] Comment on above: Result Comment: LDL ATP III CLASSIFICATION LDL less than 100 mg/dL Optimal LDL 100-129 mg/dL Near or above optimal LDL 130-159 mg/dL Borderline high LDL 160-189 mg/dL High LDL greater than 189 mg/dL Very high Performed By: #### C BC, LIPID, CMP #### [address] Triglyceride w/Reflex 157 mg/dL High 0-149 [facility] Comment on above: Result Comment: TRIG ATP III CLASSIFICATION TRIG less than 150 mg/dL Normal TRIG 150-199 mg/dL Borderline high TRIG 200-500 mg/dL High TRIG greater than 500 mg/dL Very high Standard traceable to the Center for Disease Conrtrol and Prevention (CDC) test method. Performed By: #### C BC, LIPID, CMP #### [address] VLDL CHOLESTEROL 31 mg/dL Normal [facility] Comment on above: Performed By: #### C BC, LIPID, CMP #### [address] Lymphocytes [#/volume] in Bl ood by Automated countOrdered By: Morena Bravo on 08-27-2023 Lymphocytes (Bld) [#/Vol] 2.6 10*3/uL Normal 1.00-4.8 [facility] Comment on above: Performed By: #### C BC, LIPID, CMP #### [address] Lymphocytes/100 leukocytes i n Blood by Automated countOrdered By: oMrena Bravo on 08-27-2023 Lymphocytes/100 WBC (Bld) 30.8 % Normal . [facility] Comment on above: Performed By: #### C BC, LIPID, CMP #### [address] MCH [Entitic mass] by Automa ceci countOrdered By: Morena Bravo on 08-27-2023 MCH (RBC) [Entitic mass] 24.6 pg Low 24.7-34.3 [facility] Comment on above: Performed By: #### C BC, LIPID, CMP #### [address] MCHC Auto (RBC) [Mass/Vol]Or dered By: Morena Bravo on 08-27-2023 MCHC (RBC) [Mass/Vol] 32.0 g/dL 32.0-35.0 [facility] MCV [Entitic volume] by Auto mated countOrdered By: Morena Bravo on 08-27-2023 MCV (RBC) [Entitic vol] 76.9 fL Low 80-100 [facility] Comment on above: Performed By: #### C BC, LIPID, CMP #### [address] Neutrophils [#/volume] in Bl ood by Automated countOrdered By: Morena Bravo on 08-27-2023 Neutrophils (Bld) [#/Vol] 5.2 10*3/uL Normal 1.8-7.7 [facility] Comment on above: Performed By: #### C BC, LIPID, CMP #### [address] No Panel InformationOrdered By: Morena Bravo on 08-27-2023 Estimated GFR (CKD-EPI) > 60.0 mL/Min [facility] Creatinine Clearance (Chem N/A [facility] Nucleated erythrocytes [Pres ence] in Blood by Automated countOrdered By: Morena Bravo on 08-27-2023 Nucleated RBC Auto Ql (Bld) 0.1 /100{WBC} 0-0.5 [facility] Platelet mean volume [Entiti c volume] in Blood by Automated countOrdered By: Morena Bravo on 08-27-2023 Platelet mean volume (Bld) [Entitic vol] 8.1 fL Normal 6.3-10.7 [facility] Comment on above: Performed By: #### C BC, LIPID, CMP #### [facility] [address] [place] [address] Platelets [#/volume] in Bloo d by Automated countOrdered By: Morena Bravo on 08-27-2023 Platelets (Bld) [#/Vol] 386 10*3/uL Normal 150-450 [facility] Comment on above: Performed By: #### C BC, LIPID, CMP #### [address] Potassium [Moles/volume] in Serum or PlasmaOrdered By: Mroena Bravo on 08-27-2023 Potassium [Moles/Vol] 5.1 mmol/L Normal 3.5-5.1 [facility] Comment on above: Performed By: #### C BC, LIPID, CMP #### [address] Protein [Mass/volume] in Ser um or PlasmaOrdered By: Morena Bravo on 08-27-2023 Protein [Mass/Vol] 6.8 g/dL Normal 6.4-8.9 [facility] Comment on above: Performed By: #### C BC, LIPID, CMP #### [address] Serum globulin measurement b y calculation (mass/volume)Ordered By: Morena Bravo on 08-27-2023 Globulin (S) [Mass/Vol] 2.4 g/dL [facility] Comment on above: Performed By: #### C BC, LIPID, CMP #### [address] Serum or plasma albumin/glob ulin mass ratioOrdered By: Morena Bravo on 08-27-2023 Albumin/Globulin [Mass ratio] 1.8 {ratio} [facility] Comment on above: Performed By: #### C BC, LIPID, CMP #### [address] Serum or plasma anion gap de terminationOrdered By: Morena Bravo on 08-27-2023 Anion gap [Moles/Vol] 13.6 mmol/L Normal 6.0-15.0 [facility] Comment on above: Performed By: #### C BC, LIPID, CMP #### [facility] [address] [place] [address] Serum or plasma high density lipoprotein (HDL) cholesterol measurementOrdered By: Morena Bravo on 08-27-2023 Cholesterol in HDL [Mass/Vol] 47 mg/dL Normal 23-92 [facility] Comment on above: HDL CHOL ATP-III CLA SSIFICATION Cardiovascular RiskHDL > or equal to 60 mg/dL LOWHDL < 40 mg/dL HIGH Result Comment: HDL CHOL ATP-III CLASSIFICATION Cardiovascular Risk HDL > or equal to 60 mg/dL LOW HDL < 40 mg/dL HIGH Performed By: #### C BC, LIPID, CMP #### [address] Serum or plasma total choles terol/high density lipoprotein (HDL) cholesterol mass ratOrdered By: Morena Bravo on 08-27-2023 Cholesterol.total/Chol esterol in HDL [Mass ratio] 4.0 {ratio} Normal <5.0 [facility] Comment on above: Result Comment: PERF ORMED BY: [place] [address] PATHOLOGIST [employer] SKYLER CLARK M.D. Performed By: #### C BC, LIPID, CMP #### [address] Sodium [Moles/volume] in Ser um or PlasmaOrdered By: Morena Bravo on 08-27-2023 Sodium [Moles/Vol] 138 mmol/L Normal 136-145 [facility] Comment on above: Performed By: #### C BC, LIPID, CMP #### [address] Triglyceride [Mass/volume] i n Serum or PlasmaOrdered By: Morena Bravo on 08-27-2023 Triglyceride [Mass/Vol] 157 mg/dL High 0-149 [facility] Comment on above: TRIG ATP III CLASSIF ICATIONTRIG less than 150 mg/dL NormalTRIG 150-199 mg/dL Borderline highTRIG 200-500 mg/dL High TRIG greater than 500 mg/dL Very highStandard traceable to the Center for Disease Conrtrol and Prevention (CDC) test method. Urea nitrogen [Mass/volume] in Serum or PlasmaOrdered By: Morena Bravo on 08-27-2023 Urea nitrogen [Mass/Vol] 34 mg/dL High 11-25 [facility] Comment on above: Performed By: #### C BC, LIPID, CMP #### [address] HbA1c HPLC (Bld) [Mass fract ion]on 07-27-2023 HbA1c (Bld) [Mass fraction] 6.2 % [facility] A1C HEMOGLOBINon 04-13-2023 HbA1c (Bld) [Mass fraction] 6.3 % [facility] [employer] Other HbA1c (Bld) [Mass fraction]o n 04-13-2023 A1C HEMOGLOBIN [facility] [employer] Other MR lumbar spine wo conon MR lumbar spine wo con [facility] [place] [address] [place] [id number] XRay Report Signed Patient: Cynthia Lozano MR#: [id number] : 1965 Acct:[id number] Age/Sex: 57 / F ADM Date: 04/07/23 Loc: Room: Type: [facility] Attending Dr: Morena Bravo DO Copies to: Morena Bravo DO Ordering Provider: Morena Bravo DO Date of Service: 04/07/23 MR/MR lumbar spine wo con: Radicular low back pain ([id number]) XR/XR pre/post mri xray: M54.10 CLINICAL DATA: Back pain with lower extremity radiculopathy and difficulty ambulating. PRE-MRI LUMBAR SPINE - 2 views COMPARISON: 11/22/2021 AP and lateral standing views were obtained. There is osteopenia. No acute compression fractures are identified. There is still minimal anterolisthesis of L5 on S1. There is slight disc space narrowing at the lumbosacral junction. There is minimal endplate spurring. There is lower lumbar facet disease. The SI joints are intact. There is atherosclerotic plaque at the aorta and iliac arteries. XR/XR pre/post mri xray IMPRESSION: OSTEOPENIA AND DEGENERATIVE CHANGES, GREATEST AT THE FACETS. MRI LUMBAR SPINE WITHOUT CONTRAST COMPARISON: CT 02/11/2021 Multiecho imaging in the axial and sagittal plane was performed without contrast. There is no significant malalignment on the sagittal sequences. There are no acute compression fractures or marrow edema. The conus medullaris terminates at the L1-2 level. It is normal in caliber and signal intensity. No paraspinal soft tissue abnormalities are noted. At T12-L1 and L1-2, there is no disc disease or stenosis. At L2-3, there is no significant disc bulge or herniation. There is minor facet and ligament hypertrophy. There is no significant associated stenosis. At L3-4, there is minimal disc space narrowing. There is annular disc bulging toward the neural foramen, left side slightly greater than right. There is also mild facet and ligament hypertrophy. There is minimal posterior thecal sac effacement. There is mild to moderate foraminal encroachment, greater on the left. At L4-5, there is slight loss of disc height. Mild annular disc bulging is present, predominantly toward the neural foramen. There is moderate facet and ligamentous hypertrophy. There is moderate thecal sac effacement. Mild foraminal encroachment is seen The lumbosacral junction, the disc is normal in height and signal intensity. There is no disc bulge or herniation. There is facet disease, greater on the left. There is no thecal sac effacement. The neural foramen are patent. IMPRESSION: DISCOVERTEBRAL DEGENERATIVE CHANGES, GREATEST AT L4-5, DESCRIBED. Impression dictated by: Marimar Dodd M.D.04/07/2023 4:26 PM Dictation Location: [place] [address] Transcribed By: [facility] 04/07/23 1629 Dictated By: Marimar Dodd MD 04/07/23 1619 Signed By: 04/07/23 1620 Normal [facility] A1C HEMOGLOBINon 12-12-2022 HbA1c (Bld) [Mass fraction] 5.9 % [employer] Other Complete Blood Count Auto Di ffon 12-12-2022 Basophils (Bld) [#/Vol] 0.874499188 10*3/uL Normal 0.0-0.2 10*3/uL [employer] Other Basophils/100 WBC (Bld) 1.300 % . % [employer] Other Eosinophils (Bld) [#/Vol] 0.636161016 10*3/uL Normal 0.0-0.45 10*3/uL [employer] Other Eosinophils/100 WBC (Bld) 2.200 % . % [employer] Other Erythrocyte distribution width (RBC) [Ratio] 16.000 % High 11.9-15.3 % [employer] Other Hematocrit (Bld) [Volume fraction] 39.800 % Normal 34.0-46.4 % [employer] Other Hemoglobin (Bld) [Mass/Vol] 13.698637 g/dL Normal 11.8-15.4 g/dL [employer] Other Lymphocytes (Bld) [#/Vol] 2.208228334 10*3/uL Normal 1.00-4.8 10*3/uL [employer] Other Lymphocytes/100 WBC (Bld) 23.000 % . % [employer] Other MCH (RBC) [Entitic mass] 25.4000 pg Normal 24.7-34.3 pg [employer] Other MCV (RBC) [Entitic vol] 77.7000 fL Low 80-100 fL [employer] Other Monocytes (Bld) [#/Vol] 0.455981786 10*3/uL Normal 0.0-0.8 10*3/uL [employer] Other Monocytes/100 WBC (Bld) 4.400 % . % [employer] Other Neutrophils (Bld) [#/Vol] 6.848243137 10*3/uL Normal 1.8-7.7 10*3/uL [employer] Other Neutrophils/100 WBC (Bld) 69.100 % . % [employer] Other Platelet mean volume (Bld) [Entitic vol] 8.2000 fL Normal 6.3-10.7 fL [employer] Other WBC (Bld) [#/Vol] 8.311160480 10*3/uL Normal 3.8 -11.6 10*3/uL [employer] Other Complete Blood Count Auto Diff 8.9 10*3/uL Normal 3.8-11.6 10*3/uL [employer] Other Complete Blood Count Auto Diff 32.7 g/dL Normal 32.0-35.0 g/dL [employer] Other Complete Blood Count Auto Diff 0.1 /100{WBC} Normal 0-0.5 /100{WBC} [employer] Other Basophils (Bld) [#/Vol] 0.1 10*3/uL Normal 0.0-0.2 [facility] Comment on above: Order Comment: Reaso n for Exam Asthma-COPD overlap syndrome;Type 2 diabetes mellitus withou Result Comment: PERF ORMED BY: [place] [address] PATHOLOGIST [employer] SKYLER CLARK M.D. Performed By: #### L IPID, CMP, T4F, CBC, TSH3 ####[place] [id number] [facility] Basophils/100 WBC (Bld) 1.3 % Normal . [facility] Comment on above: Order Comment: Reaso n for Exam Asthma-COPD overlap syndrome;Type 2 diabetes mellitus withou Performed By: #### L IPID, CMP, T4F, CBC, TSH3 ####[place] [address] [place] [address] [place] Eosinophils (Bld) [#/Vol] 0.2 10*3/uL Normal 0.0-0.45 [facility] Comment on above: Order Comment: Reaso n for Exam Asthma-COPD overlap syndrome;Type 2 diabetes mellitus withou Performed By: #### L IPID, CMP, T4F, CBC, TSH3 ####[address] [address] [place] Eosinophils/100 WBC (Bld) 2.2 % Normal . [facility] Comment on above: Order Comment: Reaso n for Exam Asthma-COPD overlap syndrome;Type 2 diabetes mellitus withou Performed By: #### L IPID, CMP, T4F, CBC, TSH3 ####[address] Erythrocyte distribution width (RBC) [Ratio] 16.0 % High 11.9-15.3 [facility] Comment on above: Order Comment: Reaso n for Exam Asthma-COPD overlap syndrome;Type 2 diabetes mellitus withou Performed By: #### L IPID, CMP, T4F, CBC, TSH3 ####[place] [id number] [facility] Hematocrit (Bld) [Volume fraction] 39.8 % Normal 34.0-46.4 [facility] Comment on above: Order Comment: Reaso n for Exam Asthma-COPD overlap syndrome;Type 2 diabetes mellitus withou Performed By: #### L IPID, CMP, T4F, CBC, TSH3 ####[place] [id number] [facility] Hemoglobin (Bld) [Mass/Vol] 13.0 g/dL Normal 11.8-15.4 [facility] Comment on above: Order Comment: Reaso n for Exam Asthma-COPD overlap syndrome;Type 2 diabetes mellitus withou Performed By: #### L IPID, CMP, T4F, CBC, TSH3 ####[place] [id number] [facility] Lymphocytes (Bld) [#/Vol] 2.0 10*3/uL Normal 1.00-4.8 [facility] Comment on above: Order Comment: Reaso n for Exam Asthma-COPD overlap syndrome;Type 2 diabetes mellitus withou Performed By: #### L IPID, CMP, T4F, CBC, TSH3 ####[place] [id number] [facility] Lymphocytes/100 WBC (Bld) 23.0 % Normal . [facility] Comment on above: Order Comment: Reaso n for Exam Asthma-COPD overlap syndrome;Type 2 diabetes mellitus withou Performed By: #### L IPID, CMP, T4F, CBC, TSH3 ####[address] MCH (RBC) [Entitic mass] 25.4 pg Normal 24.7-34.3 [facility] Comment on above: Order Comment: Reaso n for Exam Asthma-COPD overlap syndrome;Type 2 diabetes mellitus withou Performed By: #### L IPID, CMP, T4F, CBC, TSH3 ####[address] MCV (RBC) [Entitic vol] 77.7 fL Low 80-100 [facility] Comment on above: Order Comment: Reaso n for Exam Asthma-COPD overlap syndrome;Type 2 diabetes mellitus withou Performed By: #### L IPID, CMP, T4F, CBC, TSH3 ####[address] Mean Corpuscular HGB Conc 32.7 g/dL Normal 32.0-35.0 [facility] Comment on above: Order Comment: Reaso n for Exam Asthma-COPD overlap syndrome;Type 2 diabetes mellitus withou Performed By: #### L IPID, CMP, T4F, CBC, TSH3 ####[address] Monocytes (Bld) [#/Vol] 0.4 10*3/uL Normal 0.0-0.8 [facility] Comment on above: Order Comment: Reaso n for Exam Asthma-COPD overlap syndrome;Type 2 diabetes mellitus withou Performed By: #### L IPID, CMP, T4F, CBC, TSH3 ####[address] Monocytes/100 WBC (Bld) 4.4 % Normal . [facility] Comment on above: Order Comment: Reaso n for Exam Asthma-COPD overlap syndrome;Type 2 diabetes mellitus withou Performed By: #### L IPID, CMP, T4F, CBC, TSH3 ####[place] [address] [place] Neutrophils (Bld) [#/Vol] 6.1 10*3/uL Normal 1.8-7.7 [facility] Comment on above: Order Comment: Reaso n for Exam Asthma-COPD overlap syndrome;Type 2 diabetes mellitus withou Performed By: #### L IPID, CMP, T4F, CBC, TSH3 ####[address] [address] [facility] Neutrophils/100 WBC (Bld) 69.1 % Normal . [facility] Comment on above: Order Comment: Reaso n for Exam Asthma-COPD overlap syndrome;Type 2 diabetes mellitus withou Performed By: #### L IPID, CMP, T4F, CBC, TSH3 ####[address] [address] [facility] NRBC% 0.1 /100{WBC} Normal 0-0.5 [facility] Comment on above: Order Comment: Reaso n for Exam Asthma-COPD overlap syndrome;Type 2 diabetes mellitus withou Performed By: #### L IPID, CMP, T4F, CBC, TSH3 ####[address] [address] [facility] Platelet mean volume (Bld) [Entitic vol] 8.2 fL Normal 6.3-10.7 [facility] Comment on above: Order Comment: Reaso n for Exam Asthma-COPD overlap syndrome;Type 2 diabetes mellitus withou Performed By: #### L IPID, CMP, T4F, CBC, TSH3 ####[address] [address] [place] Platelets (Bld) [#/Vol] 394 10*3/uL Normal 150-450 [employer] Other Comment on above: Order Comment: Reaso n for Exam Asthma-COPD overlap syndrome;Type 2 diabetes mellitus withou Performed By: #### L IPID, CMP, T4F, CBC, TSH3 ####[address] [address] [facility] RBC (Bld) [#/Vol] 5.13 10*6/uL High 3.60-5.00 [employer] Other Comment on above: Order Comment: Reaso n for Exam Asthma-COPD overlap syndrome;Type 2 diabetes mellitus withou Performed By: #### L IPID, CMP, T4F, CBC, TSH3 ####[facility] [id number] [place] [id number] [facility] WBC (Bld) [#/Vol] 8.9 10*3/uL Normal 3.8-11.6 [facility] Comment on above: Order Comment: Reaso n for Exam Asthma-COPD overlap syndrome;Type 2 diabetes mellitus withou Performed By: #### L IPID, CMP, T4F, CBC, TSH3 ####[facility] [id number] [place] [id number] [facility] Comprehensive Metabolic Pane xochilt 12-12-2022 Albumin [Mass/Vol] 4.373284 g/dL Normal 3.5-5.7 g/dL [employer] Other Bilirubin [Mass/Vol] 0.7187997 mg/dL Normal 0.3- 1.0 mg/dL [employer] Other Calcium [Mass/Vol] 10.8771025 mg/dL High 8.6-1 0.3 mg/dL [employer] Other CO2 [Moles/Vol] 31.17212457 mmol/L High 21.0-3 1.0 mmol/L [employer] Other Creatinine [Mass/Vol] 0.82879833 mg/dL Normal 0. 60-1.20 mg/dL [employer] Other Potassium [Moles/Vol] 5.70647172 mmol/L Normal 3 .5-5.1 mmol/L [employer] Other Protein [Mass/Vol] 7.201493 g/dL Normal 6.4-8.9 g/dL [employer] Other Comprehensive Metabolic Panel 2.5 g/dL [employer] Other Albumin [Mass/Vol] 4.6 g/dL Normal 3.5-5.7 [facility] Comment on above: Order Comment: Reaso n for Exam Asthma-COPD overlap syndrome;Type 2 diabetes mellitus withou FASTING. JKW Performed By: #### L IPID, CMP, T4F, CBC, TSH3 ####[facility] [place] [address] [facility] Albumin/Globulin [Mass ratio] 1.8 {ratio} Normal [employer] Other Comment on above: Order Comment: Reaso n for Exam Asthma-COPD overlap syndrome;Type 2 diabetes mellitus withou FASTING. JKW Performed By: #### L IPID, CMP, T4F, CBC, TSH3 ####[place] [address] [place] [address] [facility] ALP [Catalytic activity/Vol] 130 U/L High 34-104 [employer] Other Comment on above: Order Comment: Reaso n for Exam Asthma-COPD overlap syndrome;Type 2 diabetes mellitus withou FASTING. JKW Performed By: #### L IPID, CMP, T4F, CBC, TSH3 ####[facility] [place] [address] [facility] ALT [Catalytic activity/Vol] 17 U/L Normal 7-52 [employer] Other Comment on above: Order Comment: Reaso n for Exam Asthma-COPD overlap syndrome;Type 2 diabetes mellitus withou FASTING. JKW Performed By: #### L IPID, CMP, T4F, CBC, TSH3 ####[facility] [place] [address] [facility] Anion gap [Moles/Vol] 12.5 mmol/L Normal 6.0-15.0 [facility] Comment on above: Order Comment: Reaso n for Exam Asthma-COPD overlap syndrome;Type 2 diabetes mellitus withou FASTING. JKW Performed By: #### L IPID, CMP, T4F, CBC, TSH3 ####[facility] [place] [address] [facility] AST [Catalytic activity/Vol] 12 U/L Low 13-39 [employer] Other Comment on above: Order Comment: Reaso n for Exam Asthma-COPD overlap syndrome;Type 2 diabetes mellitus withou FASTING. JKW Performed By: #### L IPID, CMP, T4F, CBC, TSH3 ####[place] [address] [place] [address] [facility] Bilirubin [Mass/Vol] 0.3 mg/dL Normal 0.3-1.0 [facility] Comment on above: Order Comment: Reaso n for Exam Asthma-COPD overlap syndrome;Type 2 diabetes mellitus withou FASTING. JKW Performed By: #### L IPID, CMP, T4F, CBC, TSH3 ####[place] [address] [place] [address] [facility] Calcium [Mass/Vol] 10.4 mg/dL High 8.6-10.3 [facility] Comment on above: Order Comment: Reaso n for Exam Asthma-COPD overlap syndrome;Type 2 diabetes mellitus withou FASTING. JKW Performed By: #### L IPID, CMP, T4F, CBC, TSH3 ####[address] [address] [place] Chloride [Moles/Vol] 99 mmol/L Normal 98-107 [facility] [employer] Other Comment on above: Order Comment: Reaso n for Exam Asthma-COPD overlap syndrome;Type 2 diabetes mellitus withou FASTING. JKW Performed By: #### L IPID, CMP, T4F, CBC, TSH3 ####[address] [place] [address] [facility] CO2 [Moles/Vol] 31.5 mmol/L High 21.0-31.0 [facility] Comment on above: Order Comment: Reaso n for Exam Asthma-COPD overlap syndrome;Type 2 diabetes mellitus withou FASTING. JKW Performed By: #### L IPID, CMP, T4F, CBC, TSH3 ####[address] [address] [facility] Creatinine [Mass/Vol] 0.96 mg/dL Normal 0.60-1.20 [facility] Comment on above: Order Comment: Reaso n for Exam Asthma-COPD overlap syndrome;Type 2 diabetes mellitus withou FASTING. JKW Performed By: #### L IPID, CMP, T4F, CBC, TSH3 ####[address] [place] [address] [facility] GFR/1.73 sq M.predicted MDRD (S/P/Bld) [Vol rate/Area] mL/min/{1.73_m2} Normal M2G [facility] [employer] Other Comment on above: Order Comment: Reaso n for Exam Asthma-COPD overlap syndrome;Type 2 diabetes mellitus withou FASTING. JKW Performed By: #### L IPID, CMP, T4F, CBC, TSH3 ####[address] [address] [facility] Globulin (S) [Mass/Vol] 2.5 g/dL Normal [facility] Comment on above: Order Comment: Reaso n for Exam Asthma-COPD overlap syndrome;Type 2 diabetes mellitus withou FASTING. JKW Performed By: #### L IPID, CMP, T4F, CBC, TSH3 ####[address] [address] [facility] Glucose [Mass/Vol] 92 mg/dL Normal 70-100 [employer] Other Comment on above: Order Comment: Reaso n for Exam Asthma-COPD overlap syndrome;Type 2 diabetes mellitus withou FASTING. JKW Result Comment: Wheeler Glucose Reference Range is dependent on time and content of last meal. Glucose of more than 200 mg/dL in a nonstressed, ambulatory subject supports the diagnosis of Diabetes Mellitus. ADA recommended reference range Performed By: #### L IPID, CMP, T4F, CBC, TSH3 ####[address] [address] [facility] Potassium [Moles/Vol] 5.0 mmol/L Normal 3.5-5.1 [facility] Comment on above: Order Comment: Reaso n for Exam Asthma-COPD overlap syndrome;Type 2 diabetes mellitus withou FASTING. JKW Performed By: #### L IPID, CMP, T4F, CBC, TSH3 ####[address] [place] [address] [facility] Protein [Mass/Vol] 7.1 g/dL Normal 6.4-8.9 The [facility] Comment on above: Order Comment: Reaso n for Exam Asthma-COPD overlap syndrome;Type 2 diabetes mellitus withou FASTING. JKW Performed By: #### L IPID, CMP, T4F, CBC, TSH3 ####[address] [address] [facility] Sodium [Moles/Vol] 138 mmol/L Normal 136-145 [employer] Other Comment on above: Order Comment: Reaso n for Exam Asthma-COPD overlap syndrome;Type 2 diabetes mellitus withou FASTING. JKW Performed By: #### L IPID, CMP, T4F, CBC, TSH3 ####[address] [address] [facility] Urea nitrogen [Mass/Vol] 29 mg/dL High 7-25 [employer] Other Comment on above: Order Comment: Reaso n for Exam Asthma-COPD overlap syndrome;Type 2 diabetes mellitus withou FASTING. JKW Performed By: #### L IPID, CMP, T4F, CBC, TSH3 ####[address] [address] [facility] Free T4 (Free Thyroxine)on 0 12-12-2022 Free T4 [Mass/Vol] 0.85 ng/dL Normal 0.61-1.12 The [facility] Comment on above: Order Comment: Reaso n for Exam Asthma-COPD overlap syndrome;Type 2 diabetes mellitus withou FASTING. JKW Performed By: #### L IPID, CMP, T4F, CBC, TSH3 ####[address] [address] [facility] HbA1c (Bld) [Mass fraction]o n 12-12-2022 A1C HEMOGLOBIN [employer] Other Lipid Panelon 12-12-2022 Cholesterol in LDL Elph Qn 103 mg/dL High 0-100 mg/dL [employer] Other Lipid Panel 122 mg/dL Normal 0-149 mg/dL [employer] Other Lipid Panel 24 mg/dL [employer] Other Cholesterol [Mass/Vol] 171 mg/dL Normal 140-200 No rt [employer] Other Comment on above: Order Comment: Reaso n for Exam Asthma-COPD overlap syndrome;Type 2 diabetes mellitus withou FASTING. JKW Result Comment: Chol less than 200 mg/dl low risk Chol 201-239 mg/dl borderline risk Chol 240 mg/dl and greater high risk Performed By: #### L IPID, CMP, T4F, CBC, TSH3 ####[facility] [id number] [place] [address] [facility] Cholesterol in HDL [Mass/Vol] 44 mg/dL Normal 23-92 [employer] Other Comment on above: Order Comment: Reaso n for Exam Asthma-COPD overlap syndrome;Type 2 diabetes mellitus withou FASTING. JKW Result Comment: HDL CHOL ATP-III CLASSIFICATION Cardiovascular Risk HDL > or equal to 60 mg/dL LOW HDL < 40 mg/dL HIGH Performed By: #### L IPID, CMP, T4F, CBC, TSH3 ####[facility] [id number] [place] [address] [facility] Cholesterol.total/Chol esterol in HDL [Mass ratio] 3.9 {ratio} Normal <5.0 [facility] [employer] Other Comment on above: Order Comment: Reaso n for Exam Asthma-COPD overlap syndrome;Type 2 diabetes mellitus withou FASTING. JKW Performed By: #### L IPID, CMP, T4F, CBC, TSH3 ####[facility] [id number] [place] [address] [facility] LDL Cholesterol,Calculated 103 mg/dL High 0-100 The [facility] Comment on above: Order Comment: Reaso n for Exam Asthma-COPD overlap syndrome;Type 2 diabetes mellitus withou FASTING. JKW Result Comment: LDL ATP III CLASSIFICATION LDL less than 100 mg/dL Optimal LDL 100-129 mg/dL Near or above optimal LDL 130-159 mg/dL Borderline high LDL 160-189 mg/dL High LDL greater than 189 mg/dL Very high Performed By: #### L IPID, CMP, T4F, CBC, TSH3 ####[address] [place] [address] [facility] Triglyceride w/Reflex 122 mg/dL Normal 0-149 [facility] Comment on above: Order Comment: Reaso n for Exam Asthma-COPD overlap syndrome;Type 2 diabetes mellitus withou FASTING. JKW Result Comment: TRIG ATP III CLASSIFICATION TRIG less than 150 mg/dL Normal TRIG 150-199 mg/dL Borderline high TRIG 200-500 mg/dL High TRIG greater than 500 mg/dL Very high Standard traceable to the Center for Disease Conrtrol and Prevention (CDC) test method. Performed By: #### L IPID, CMP, T4F, CBC, TSH3 ####[address] [id number] [facility] VLDL CHOLESTEROL 24 mg/dL Normal [facility] Comment on above: Order Comment: Reaso n for Exam Asthma-COPD overlap syndrome;Type 2 diabetes mellitus withou FASTING. JKW Performed By: #### L IPID, CMP, T4F, CBC, TSH3 ####[address] [place] [id number] [facility] Thyroid Stimulating Hormoneo n 12-12-2022 TSH Qn [id number] m[IU]/L Normal 0.45-5 .33 u[iU]/mL [employer] Other TSH Qn 2.61 m[IU]/L Normal 0.45-5.33 The [facility] Comment on above: Order Comment: Reaso n for Exam Asthma-COPD overlap syndrome;Type 2 diabetes mellitus withou FASTING. JKW Result Comment: PERF ORMED BY: [facility] [address] [place] [address] PATHOLOGIST [employer]ISH[employer] SKYLER CLARK M.D. Performed By: #### L IPID, CMP, T4F, CBC, TSH3 ####[facility] [place] [address] [facility] A1C HEMOGLOBINon 06-02-2022 HbA1c (Bld) [Mass fraction] 7.6 % [employer] Other HbA1c (Bld) [Mass fraction]o n 06-02-2022 A1C HEMOGLOBIN [facility] [employer] Other CBC AUTO DIFFon 03-18-2022 BASO # 0.0 103/ul Normal 0.0-0.1 [facility] Comment on above: Performed By: #### D RUGRPD #### [facility] [address] [place] [address] Dr. Yesenia Ruffin Basophils/100 WBC (Bld) 0.3 % Normal 0.2-2.0 [facility] Comment on above: Performed By: #### D RUGRPD #### [facility] [address] [place] [address] Dr. Yesenia Ruffin EO # 0.2 103/ul Normal 0.0-0.7 [facility] Comment on above: Performed By: #### D RUGRPD #### [facility] [address] [place] [address] Dr. Yesenia Ruffin Eosinophils/100 WBC (Bld) 1.6 % Normal 0.9-7.0 [facility] Comment on above: Performed By: #### D RUGRPD #### [facility] [address] [place] [address] Dr. Yesenia Ruffin Erythrocyte distribution width (RBC) [Ratio] 14.6 % Normal 11.0-15.0 [facility] Comment on above: Performed By: #### D RUGRPD #### [facility] [address] [place] [address] Dr. Yesenia Ruffin Hematocrit (Bld) [Volume fraction] 40.4 % Normal 36.0-48.0 [facility] Comment on above: Performed By: #### D RUGRPD #### [facility] [address] [place] [address] Dr. Yesenia Ruffin Hemoglobin (Bld) [Mass/Vol] 12.7 g/dL Normal 12.0-16.0 [facility] Comment on above: Performed By: #### D RUGRPD #### [facility] [address] [address] [address] Yesenia Ruffin IG # 0.03 10e3/ul Normal 0.00-0.03 [facility] Comment on above: Performed By: #### D RUGRPD #### [facility] [address] [address] [address] Yesenia Ruffin IG % 0.3 % Normal 0.0-0.5 [facility] Comment on above: Performed By: #### D RUGRPD #### [facility] [address] [address] [address] Yesenia Ruffin LYMPH # 2.1 103/ul Normal 1.2-3.8 [facility] Comment on above: Performed By: #### D RUGRPD #### [facility] [address] [place] [address] Dr. Yesenia Ruffin Lymphocytes/100 WBC (Bld) 20.0 % Critically low 20.5-60.0 [facility] Comment on above: Performed By: #### D RUGRPD #### [facility] [address] [address] [address] Yesenia Ruffin MANUAL DIFF REQ NO Normal [facility] Comment on above: Performed By: #### D RUGRPD #### [facility] [address] [address] [address] Yesenia Ruffin MCH (RBC) [Entitic mass] 26.1 pg Critically low 26.7-34.0 [facility] Comment on above: Performed By: #### D RUGRPD #### [facility] [address] [address] [address] Yesenia Ruffin MCHC (RBC) [Mass/Vol] 31.4 g/dL Normal 29.9-35.2 [facility] Comment on above: Performed By: #### D RUGRPD #### [facility] [address] [address] [address] Yesenia Ruffin MCV (RBC) [Entitic vol] 83.0 fL Normal 81.0-99.0 [facility] Comment on above: Performed By: #### D RUGRPD #### [facility] [address] [address] [address] Yesenia Ruffin MONO # 0.4 103/ul Normal 0.3-0.8 [facility] Comment on above: Performed By: #### D RUGRPD #### [facility] [address] [place] [address] Dr. Yesenia Ruffin Monocytes/100 WBC (Bld) 3.9 % Normal 1.7-12.0 [facility] Comment on above: Performed By: #### D RUGRPD #### [facility] [address] [place] [address] Dr. Yesenia Ruffin NEUT # 7.7 103/ul Critically high 1.4-6.5 The [facility] Comment on above: Performed By: #### D RUGRPD #### [facility] [address] [place] [address] Dr. Yesenia Ruffin Neutrophils/100 WBC (Bld) 73.9 % Normal 43.0-75.0 [facility] Comment on above: Performed By: #### D RUGRPD #### [facility] [address] [place] [address] Dr. Yesenia Ruffin Platelet mean volume (Bld) [Entitic vol] 9.5 fL Normal 9.5-13.5 [facility] Comment on above: Performed By: #### D RUGRPD #### [facility] [address] [place] [address] Dr. Yesenia Ruffin PLT 332 103/ul Normal 150-450 [facility] Comment on above: Performed By: #### D RUGRPD #### [facility] [address] [place] [address] Dr. Yesenia Ruffin RBC 4.87 106/ul Normal 4.20-5.40 [facility] Comment on above: Performed By: #### D RUGRPD #### [facility] [address] [place] [address] Dr. Yesenia Ruffin WBC 10.4 103/ul Normal 4.0-11.0 [facility] Comment on above: Performed By: #### D RUGRPD #### [facility] [address] [address] [address] Yesenia Ruffin Covid-19 PCR ([facility])on 03-04 SARS-CoV-2 (COVID-19) RNA NINFA+probe Ql (Unsp spec) Not detected Normal NOT DETECTED [facility] Comment on above: Result Comment: When diagnostic testing is negative, the possibility of a false negative should be considered in the context of a patient's recent exposures and the presence of clinical signs and symptoms consistent with SARS-CoV-2. This test is not yet approved or cleared by the [place] FDA. When there are no FDA-approved or cleared tests available, and other criteria are met, FDA can make tests available under an emergency access mechanism called an Emergency Use Authorization (EUA). The EUA for this test is supported by the Lease Out Worker of Health and Human Service's declaration that circumstances exist to justify the emergency use of in vitro diagnostics for the detection and/or diagnosis of the virus that causes COVID-19. This EUA will remain in effect for the duration of the COVID-19 declaration justifying emergency of IVDs, unless it is terminated or revoked by the FDA (after which the test may no longer be used). Performed By: #### D RUGRPD #### [facility] [address] [place] [address] Dr. Yesenia Ruffin LIPASEon 03-18-2022 Lipase [Catalytic activity/Vol] 136.0 U/L Normal 73.0-393.0 [facility] Comment on above: Performed By: #### H STROPN, LIPA, CMP #### [facility] [address] [address] [address] Yesenia Ruffin PROF 14(COMP METB)on 022 Albumin [Mass/Vol] 3.3 g/dL Critically low 3.4-5.0 Th [facility] Comment on above: Performed By: #### H STROPN, LIPA, CMP #### [facility] [address] [place] [address] Dr. Yesenia Ruffin Albumin/Globulin [Mass ratio] 0.9 {ratio} Normal [facility] Comment on above: Performed By: #### H STROPN, LIPA, CMP #### [facility] [address] [place] [address] Dr. Yesenia Ruffin ALP [Catalytic activity/Vol] 119 U/L Critically high 46-116 [facility] Comment on above: Performed By: #### H STROPN, LIPA, CMP #### [facility] [address] [place] [address] Dr. Yesenia Ruffin ALT [Catalytic activity/Vol] 26 U/L Normal 14-59 [facility] Comment on above: Performed By: #### H STROPN, LIPA, CMP #### [facility] [address] [place] [address] Dr. Yesenia Ruffin Anion gap [Moles/Vol] 12.5 mmol/L Normal [facility] Comment on above: Performed By: #### H STROPN, LIPA, CMP #### [facility] [address] [place] [address] Dr. Yesenia Ruffin AST [Catalytic activity/Vol] 8 U/L Critically low 15-37 [facility] Comment on above: Performed By: #### H STROPN, LIPA, CMP #### [facility] [address] [place] [address] Dr. Yesenia Ruffin Bilirubin [Mass/Vol] 0.2 mg/dL Normal 0.2-1.0 [facility] Comment on above: Performed By: #### H STROPN, LIPA, CMP #### [facility] [address] [place] [address] Dr. Yesenia Ruffin Calcium [Mass/Vol] 10.0 mg/dL Normal 8.5-10.1 [facility] Comment on above: Performed By: #### H STROPN, LIPA, CMP #### [facility] [address] [place] [address] Dr. Yesenia Ruffin Chloride [Moles/Vol] 98 mmol/L Normal 98-107 [facility] Comment on above: Performed By: #### H STROPN, LIPA, CMP #### [facility] [address] [address] [address] Yesenia Ruffin CO2 [Moles/Vol] 31.0 mmol/L Normal 21.0-32.0 [facility] Comment on above: Performed By: #### H STROPN, LIPA, CMP #### [facility] [address] [place] [address] Dr. Yesenia Ruffin Creatinine [Mass/Vol] 0.99 mg/dL Normal 0.55-1.02 [facility] Comment on above: Performed By: #### H STROPN, LIPA, CMP #### [facility] [address] [address] [address] Yesenia Ruffin EGFR-AF TRINIDADIAN >60 Normal >=60 [facility] Comment on above: Performed By: #### H STROPN, LIPA, CMP #### [facility] [address] [place] [address] Dr. Yesenia Ruffin EGFR-NON AF TRINIDADIAN 58 mL/min/1.73m2 Critically low >=60 [facility] Comment on above: Performed By: #### H STROPN, LIPA, CMP #### [facility] [address] [place] [address] Dr. Yesenia Ruffin Globulin (S) [Mass/Vol] 3.8 g/dL Normal [facility] Comment on above: Performed By: #### H STROPN, LIPA, CMP #### [facility] [address] [place] [address] Dr. Yesenia Ruffin Glucose [Mass/Vol] 146 mg/dL Critically high 74-106 [facility] Comment on above: Performed By: #### H STROPN, LIPA, CMP #### [facility] [address] [place] [address] Dr. Yesenia Ruffin Potassium [Moles/Vol] 4.5 mmol/L Normal 3.5-5.1 [facility] Comment on above: Performed By: #### H STROPN, LIPA, CMP #### [facility] [address] [place] [address] Dr. Yesenia Ruffin Protein [Mass/Vol] 7.1 g/dL Normal 6.4-8.2 [facility] Comment on above: Performed By: #### H STROPN, LIPA, CMP #### [facility] [address] [address] [address] Yesenia Ruffin Sodium [Moles/Vol] 137 mmol/L Normal 136-145 [facility] Comment on above: Performed By: #### H STROPN, LIPA, CMP #### [facility] [address] [address] [address] Yesenia Ruffin Urea nitrogen [Mass/Vol] 34.0 mg/dL Critically high 7.0-18.0 [facility] Comment on above: Performed By: #### H STROPN, LIPA, CMP #### [facility] [address] [place] [address] Dr. Yesenia Ruffin Urea nitrogen/Creatinine [Mass ratio] 34.3 mg/mg Normal [facility] Comment on above: Performed By: #### H STROPN, LIPA, CMP #### [facility] [address] [place] [address] Dr. Yesenia Ruffin TROPONIN, HIGH SENSITIVITYon 03-18-2022 HSTROP 7.7 pg/mL Normal 4.0-51.3 [facility] Comment on above: Result Comment: CUT- OFF POINTS HAVE BEEN ESTABLISHED BASED ON THE FOURTH UNIVERSAL DEFINITIONS OF MYOCARDIAL INFARCTION. THE UPPER REFERENCE LIMIT (URL) OF TROPONIN, DEFINED THE 99TH PERCENTILE OF cTnI DISTRIBUTION IN A REFERENCE POPULATION, HAS BEEN CONFIRMED THE DECISION THRESHOLD FOR [place] DIAGNOSIS. Performed By: #### L ACT #### [facility] [address] [place] [address] Dr. Yesenia Ruffin HSTROP 7.0 pg/mL Normal 4.0-51.3 [facility] Comment on above: Result Comment: CUT- OFF POINTS HAVE BEEN ESTABLISHED BASED ON THE FOURTH UNIVERSAL DEFINITIONS OF MYOCARDIAL INFARCTION. THE UPPER REFERENCE LIMIT (URL) OF TROPONIN, DEFINED THE 99TH PERCENTILE OF cTnI DISTRIBUTION IN A REFERENCE POPULATION, HAS BEEN CONFIRMED THE DECISION THRESHOLD FOR WA DIAGNOSIS. Performed By: #### H STROPN, LIPA, CMP #### [facility] [address] [place] [address] Dr. Yesenia Ruffin XR CHEST 2 Von 03-18-2022 XR CHEST 2 V EXAMINATION: XR CHES T 2 V HISTORY: NAUSEA WITH VOMITING, UNSPECIFIED ; shortness of breath, COPD, asthma COMPARISON: No relevant comparison available. FINDINGS: LUNGS: Slight spiculated masslike area within right upper lobe, 2.7 x 1.5 cm. Mild haziness within left lateral lung base obscuring the costophrenic angle. VASCULATURE: No increased pulmonary vasculature. PLEURA: Right pleural effusion with fluid obscuring the lateral right lung base, cardiac phrenic angle, and likely fluid lateral to the right upper lobe. CARDIAC: No cardiomegaly or cardiac silhouette abnormality. MEDIASTINUM: No visible mass or adenopathy. BONES: No fracture or visible bone lesion. OTHER: Negative. IMPRESSION: 1. 2.7 cm spiculated mass versus focal pneumonia within right midlung. Correlate with clinical symptoms. Follow-up chest x-ray to document clearing versus CT imaging for further evaluation. 2. Moderate right pleural effusion. 3. Mild left basilar atelectasis versus infiltrates. Electronically authenticated by: GIFTY WAGNER Date: 2022-03-18 11:57 Normal [facility] Basophils Auto (Bld) [#/Vol] Ordered By: Amish Mills on 02-26-2022 Basophils (Bld) [#/Vol] 0.1 10*3/uL 0.0-0.2 [facility] Basophils/100 WBC Auto (Bld) Ordered By: Amish Mills on 02-26-2022 Basophils/100 WBC (Bld) 0.9 % . [facility] Creatinine and Glomerular fi ltration rate.predicted panel (S/P/Bld)Ordered By: Amish Mills on 02-26-2022 Creatinine [Mass/Vol] 0.99 mg/dL 0.44-1.03 [facility] Eosinophils Auto (Bld) [#/Vo l]Ordered By: Amish Mills on 02-26-2022 Eosinophils (Bld) [#/Vol] 0.0 10*3/uL 0.0-0.45 [facility] Eosinophils/100 WBC Auto (Bl d)Ordered By: Amish Mills on 02-26-2022 Eosinophils/100 WBC (Bld) 0.0 % . [facility] Erythrocyte distribution wid th Auto (RBC) [Ratio]Ordered By: Amish Mills on 02-26-2022 Erythrocyte distribution width (RBC) [Ratio] 15.4 % 11.9-15.3 [facility] Estimated glomerular filtrat ion rate (GFR) non- AmericanOrdered By: Amish Mills on 02-26-2022 GFR/1.73 sq M.predicted among non-blacks MDRD (S/P/Bld) [Vol rate/Area] 58 mL/Min [facility] Glucose Glucometer (BldC) [M ass/Vol]Ordered By: Amish Mills on 02-26-2022 Glucose [Mass/Vol] 339 mg/dL [facility] Comment on above: Random Glucose Refer ence Range is dependent on time and content of last meal. Glucose of more than 200 mg/dL in a nonstressed, ambulatory subject supports the diagnosis of Diabetes Mellitus. Hematocrit Auto (Bld) [Volum e fraction]Ordered By: Amish Mills on 02-26-2022 Hematocrit (Bld) [Volume fraction] 41.6 % 34.0-46.4 [facility] Hemoglobin [Mass/volume] in BloodOrdered By: Amish Mills on 02-26-2022 Hemoglobin (Bld) [Mass/Vol] 13.3 g/dL 11.8-15.4 [facility] Laboratory - Chemistry and C hemistry - challengeOrdered By: Amish Mills on 02-26-2022 Magnesium [Mass/Vol] 2.4 mg/dL 1.6-2.6 [facility] - Hematology and Cell countsOrdered By: Amish Mills on 02-26-2022 Nucleated RBC/100 WBC (Bld) [Ratio] 0.0 % 0-0.5 [facility] Leukocytes [#/volume] in Blo od by Automated countOrdered By: Amish Mills on 02-26-2022 WBC (Bld) [#/Vol] 14.6 10*3/uL 4.5-11.0 [facility] Lymphocytes Auto (Bld) [#/Vo l]Ordered By: Amish Mills on 02-26-2022 Lymphocytes (Bld) [#/Vol] 0.7 10*3/uL 1.00-4.8 [facility] Lymphocytes/100 WBC Auto (Bl d)Ordered By: Amish Mills on 02-26-2022 Lymphocytes/100 WBC (Bld) 4.8 % . [facility] MCH Auto (RBC) [Entitic mass ]Ordered By: Amish Mills on 02-26-2022 MCH (RBC) [Entitic mass] 26.7 pg 24.7-34.3 [facility] MCHC Auto (RBC) [Mass/Vol]Or dered By: Amish Mills on 02-26-2022 MCHC (RBC) [Mass/Vol] 32.0 g/dL 32.0-35.0 [facility] MCV Auto (RBC) [Entitic vol] Ordered By: Amish Mills on 02-26-2022 MCV (RBC) [Entitic vol] 83.5 fL 80-100 [facility] Monocytes Auto (Bld) [#/Vol] Ordered By: Amish Mills on 02-26-2022 Monocytes (Bld) [#/Vol] 0.2 10*3/uL 0.0-0.8 [facility] Monocytes/100 WBC Auto (Bld) Ordered By: Amish Mills on 02-26-2022 Monocytes/100 WBC (Bld) 1.4 % . [facility] Neutrophils Auto (Bld) [#/Vo l]Ordered By: Amish Mills on 02-26-2022 Neutrophils (Bld) [#/Vol] 13.5 10*3/uL 1.8-7.7 [facility] Neutrophils/100 WBC Auto (Bl d)Ordered By: Amish Mills on 02-26-2022 Neutrophils/100 WBC (Bld) 92.9 % . [facility] No Panel InformationOrdered By: Amish Mills on 02-26-2022 Bedside Glucose Comment Glu2: cleaned meter [facility] Estimated GFR () > 60 mL/Min [facility] Comment on above: GFR estimated refere nce range: According to KDOQI guidelines, <60 ml/min/1.73m2 is sufficient to diagnose a patient with chronic kidney disease. Pharmacy Creatinine Clearance (Chem 69.48 [facility] Platelet mean volume Auto (B ld) [Entitic vol]Ordered By: Amish Mills on 02-26-2022 Platelet mean volume (Bld) [Entitic vol] 8.0 fL 6.3-10.7 [facility] Platelets Auto (Bld) [#/Vol] Ordered By: Amish Mills on 02-26-2022 Platelets (Bld) [#/Vol] 372 10*3/uL 150-450 [facility] RBC Auto (Bld) [#/Vol]Ordere d By: Amish Mills on 02-26-2022 RBC (Bld) [#/Vol] 4.98 10*6/uL 3.60-5.00 [facility] Serum or plasma anion gap de terminationOrdered By: Amish Mills on 02-26-2022 Anion gap [Moles/Vol] 13.6 mmol/L 6.0-15.0 [facility] Serum or plasma calcium kimberly urement (mass/volume)Ordered By: Amish Mills on 02-26-2022 Calcium [Mass/Vol] 9.1 mg/dL 8.2-10.2 [facility] Serum or plasma chloride manjit surement (moles/volume)Ordered By: Amish Mills on 02-26-2022 Chloride [Moles/Vol] 102 mmol/L 95-114 [facility] Serum or plasma glucose kimberly urement (mass/volume)Ordered By: Amish Mills on 02-26-2022 Glucose [Mass/Vol] 229 mg/dL 70-100 [facility] Comment on above: ADA recommended refe rence rangeRandom Glucose Reference Range is dependent on time and content of last meal. Glucose of more than 200 mg/dL in a nonstressed, ambulatory subject supports the diagnosis of Diabetes Mellitus. Serum or plasma potassium me asurement (moles/volume)Ordered By: Amish Mills on 02-26-2022 Potassium [Moles/Vol] 5.0 mmol/L 3.5-5.1 [facility] Serum or plasma sodium measu rement (moles/volume)Ordered By: Amish Mills on 02-26-2022 Sodium [Moles/Vol] 136 mmol/L 136-146 [facility] Serum or plasma total carbon dioxide measurement (moles/volume)Ordered By: Amish Mills on 02-26-2022 CO2 [Moles/Vol] 25.4 mmol/L 22.0-30.0 [facility] Serum or plasma urea nitroge n measurement (mass/volume)Ordered By: Amish Mills on 02-26-2022 Urea nitrogen [Mass/Vol] 32 mg/dL 01-24 [facility] Laboratory - Chemistry and C hemistry - challengeOrdered By: Chino Perera on 02-25-2022 Lactate [Moles/Vol] 1.2 mmol/L 0.5-2.2 [facility] Laboratory - Chemistry and C hemistry - challengeOrdered By: Amish Mills on 02-25-2022 CO2 [Moles/Vol] 26.8 mmol/L 23.0-27.0 [facility] HCO3 (Bld) [Moles/Vol] 25.1 mmol/L 23.0-29.0 [facility] No Panel InformationOrdered By: Amish Mills on 02-25-2022 Bedside Glucose #2 Comment Cleaned meter [facility] Arterial Blood Base Excess -2.2 mmol/L -3.0-3.0 [facility] Arterial Blood Oxygen Content 8.2 mmol/L 6.6-9.7 [facility] Arterial Blood Oxygen Saturation 96.5 % 95.0-100.0 [facility] Arterial Blood Partial Pressure CO2 54.1 mm[Hg] 35.0-45.0 [facility] Arterial Blood Partial Pressure O2 89.7 mm[Hg] 80.0-100.0 [facility] Arterial Blood pH 7.29 7.35-7.45 [facility] Blood Gas Critical Value See comment [facility] Comment on above: Critical Value german d on: 02/25/2022 at 05:01 Blood Gas PEEP 6 cmH2O [facility] Blood Gas Sample Site Right radial F [facility] FiO2 35 % [facility] Blood Gas Pressure Support 6.0 cmH2O [facility] A1C HEMOGLOBINon 02-24-2022 HbA1c (Bld) [Mass fraction] 6.9 % [employer] Other Basophils Auto (Bld) [#/Vol] Ordered By: Christin Field on 02-24-2022 Basophils (Bld) [#/Vol] 0.1 10*3/uL 0.0-0.2 [facility] Basophils/100 WBC Auto (Bld) Ordered By: Christin Field on 02-24-2022 Basophils/100 WBC (Bld) 1.3 % . [facility] COVID-19 Detected/Not Detect edOrdered By: Salvatore Rasmussen on 02-24-2022 SARS-CoV-2 (COVID-19) RNA NINFA+non-probe Ql (Nph) Not detected Not Detecte [facility] Comment on above: This is a duplicate RP2.1 COVID (PCR) result to be used for statistical tracking purpose only. Creatinine and Glomerular fi ltration rate.predicted panel (S/P/Bld)Ordered By: Christin Field on 02-24-2022 Creatinine [Mass/Vol] 0.97 mg/dL 0.44-1.03 [facility] Eosinophils Auto (Bld) [#/Vo l]Ordered By: Christin Field on 02-24-2022 Eosinophils (Bld) [#/Vol] 0.2 10*3/uL 0.0-0.45 [facility] Eosinophils/100 WBC Auto (Bl d)Ordered By: Christin Field on 02-24-2022 Eosinophils/100 WBC (Bld) 1.6 % . [facility] Erythrocyte distribution wid th Auto (RBC) [Ratio]Ordered By: Christin Field on 02-24-2022 Erythrocyte distribution width (RBC) [Ratio] 14.8 % 11.9-15.3 [facility] Estimated glomerular filtrat ion rate (GFR) non- AmericanOrdered By: Christin Field on 02-24-2022 GFR/1.73 sq M.predicted among non-blacks MDRD (S/P/Bld) [Vol rate/Area] 59 mL/Min [facility] HbA1c (Bld) [Mass fraction]o n 02-24-2022 A1C HEMOGLOBIN [employer] Other Hematocrit Auto (Bld) [Volum e fraction]Ordered By: Christin Field on 02-24-2022 Hematocrit (Bld) [Volume fraction] 39.3 % 34.0-46.4 [facility] Hemoglobin [Mass/volume] in BloodOrdered By: Christin Field on 02-24-2022 Hemoglobin (Bld) [Mass/Vol] 12.7 g/dL 11.8-15.4 [facility] Laboratory - Chemistry and C hemistry - challengeOrdered By: Salvatore Rasmussen on 02-24-2022 CO2 [Moles/Vol] 27.9 mmol/L 23.0-27.0 [facility] HCO3 (Bld) [Moles/Vol] 26.3 mmol/L 23.0-29.[address] [facility] Laboratory - Chemistry and C hemistry - challengeOrdered By: Christin Field on 02-24-2022 Magnesium [Mass/Vol] 1.8 mg/dL 1.6-2.6 [facility] Natriuretic peptide B (Bld) [Mass/Vol] 10.0 pg/mL 5-100 [facility] Laboratory - Hematology and Cell countsOrdered By: Christin Field on 02-24-2022 Nucleated RBC/100 WBC (Bld) [Ratio] 0.1 % 0-0.5 [facility] Leukocytes [#/volume] in Blo od by Automated countOrdered By: Christin Field on 02-24-2022 WBC (Bld) [#/Vol] 10.9 10*3/uL 4.5-11.0 [facility] Lymphocytes Auto (Bld) [#/Vo l]Ordered By: Christin Field on 02-24-2022 Lymphocytes (Bld) [#/Vol] 2.2 10*3/uL 1.00-4.8 [facility] Lymphocytes/100 WBC Auto (Bl d)Ordered By: Christin Field on 02-24-2022 Lymphocytes/100 WBC (Bld) 20.6 % . [facility] MCH Auto (RBC) [Entitic mass ]Ordered By: Christin Field on 02-24-2022 MCH (RBC) [Entitic mass] 26.3 pg 24.7-34.3 [facility] MCHC Auto (RBC) [Mass/Vol]Or dered By: Christin Field on 02-24-2022 MCHC (RBC) [Mass/Vol] 32.3 g/dL 32.0-35.0 [facility] MCV Auto (RBC) [Entitic vol] Ordered By: Christin Field on 02-24-2022 MCV (RBC) [Entitic vol] 81.4 fL 80-100 [facility] Monocytes Auto (Bld) [#/Vol] Ordered By: Christin Field on 02-24-2022 Monocytes (Bld) [#/Vol] 0.6 10*3/uL 0.0-0.8 [facility] Monocytes/100 WBC Auto (Bld) Ordered By: Christin Field on 02-24-2022 Monocytes/100 WBC (Bld) 5.1 % . [facility] Neutrophils Auto (Bld) [#/Vo l]Ordered By: Christin Field on 02-24-2022 Neutrophils (Bld) [#/Vol] 7.8 10*3/uL 1.8-7.7 [facility] Neutrophils/100 WBC Auto (Bl d)Ordered By: Christin Field on 02-24-2022 Neutrophils/100 WBC (Bld) 71.4 % . [facility] No Panel InformationOrdered By: Salvatore Rasmussen on 02-24-2022 Arterial Blood Base Excess -0.7 mmol/L -3.0-3.0 [facility] Arterial Blood Oxygen Content 8.1 mmol/L 6.6-9.7 [facility] Arterial Blood Oxygen Saturation 96.5 % 95.0-100.0 [facility] Arterial Blood Partial Pressure CO2 52.8 mm[Hg] 35.0-45.0 [facility] Arterial Blood Partial Pressure O2 91.1 mm[Hg] 80.0-100.0 [facility] Arterial Blood pH 7.32 7.35-7.45 [facility] Blood Gas Critical Value See comment [facility] Comment on above: Critical Value german d on: 02/24/2022 at 18:59 Blood Gas PEEP 6 cmH2O [facility] Blood Gas Pressure Support 6.0 cmH2O [facility] Blood Gas Sample Site Left radial [facility] FiO2 35 % [facility] Oxygen Delivery Device Bipap [facility] Respiratory Panel (PCR) [facility] No Panel InformationOrdered By: Christin Field on 02-24-2022 Estimated GFR () > 60 mL/Min [facility] Comment on above: GFR estimated refere nce range: According to KDOQI guidelines, <60 ml/min/1.73m2 is sufficient to diagnose a patient with chronic kidney disease. Pharmacy Creatinine Clearance (Chem 70.70 [facility] Platelet mean volume Auto (B ld) [Entitic vol]Ordered By: Christin Field on 02-24-2022 Platelet mean volume (Bld) [Entitic vol] 7.6 fL 6.3-10.7 [facility] Platelets Auto (Bld) [#/Vol] Ordered By: Christin Field on 02-24-2022 Platelets (Bld) [#/Vol] 363 10*3/uL 150-450 [facility] RBC Auto (Bld) [#/Vol]Ordere d By: Christin Field on 02-24-2022 RBC (Bld) [#/Vol] 4.83 10*6/uL 3.60-5.00 [facility] Serum or plasma anion gap de terminationOrdered By: Christin Field on 02-24-2022 Anion gap [Moles/Vol] 15.6 mmol/L 6.0-15.0 [facility] Serum or plasma calcium kimberly urement (mass/volume)Ordered By: Christin Field on 02-24-2022 Calcium [Mass/Vol] 9.6 mg/dL 8.2-10.2 [facility] Serum or plasma chloride manjit surement (moles/volume)Ordered By: Christin Field on 02-24-2022 Chloride [Moles/Vol] 98 mmol/L 95-114 [facility] Serum or plasma glucose kimberly urement (mass/volume)Ordered By: Christin Field on 02-24-2022 Glucose [Mass/Vol] 155 mg/dL 70-100 [facility] Comment on above: ADA recommended refe rence rangeRandom Glucose Reference Range is dependent on time and content of last meal. Glucose of more than 200 mg/dL in a nonstressed, ambulatory subject supports the diagnosis of Diabetes Mellitus. Serum or plasma potassium me asurement (moles/volume)Ordered By: Christin Field on 02-24-2022 Potassium [Moles/Vol] 4.2 mmol/L 3.5-5.1 [facility] Serum or plasma sodium measu rement (moles/volume)Ordered By: Christin Field on 02-24-2022 Sodium [Moles/Vol] 137 mmol/L 136-146 [facility] Serum or plasma total carbon dioxide measurement (moles/volume)Ordered By: Christin Field on 02-24-2022 CO2 [Moles/Vol] 27.6 mmol/L 22.0-30.0 [facility] Serum or plasma urea nitroge n measurement (mass/volume)Ordered By: Christin Field on 02-24-2022 Urea nitrogen [Mass/Vol] 36 mg/dL 9- [facility] Troponin I.cardiac [Mass/vol ume] in Serum or Plasma by High sensitivity methodOrdered By: Christin Field on 02-24-2022 Troponin I.cardiac High sensitivity method [Mass/Vol] 5 pg/mL 0-15 [facility] Albumin [Mass/volume] in Ser um or PlasmaOrdered By: Cristal Bass on 02-06-2022 Albumin [Mass/Vol] 3.6 g/dL 3.2-5.5 [facility] Basophils Auto (Bld) [#/Vol] Ordered By: Cristal Bass on 02-06-2022 Basophils (Bld) [#/Vol] 0.1 10*3/uL 0.0-0.2 [facility] Basophils/100 WBC Auto (Bld) Ordered By: Cristal Bass on 02-06-2022 Basophils/100 WBC (Bld) 1.0 % . [facility] Blood hemoglobin measurement (mass/volume)Ordered By: Cristal Bass on 02-06-2022 Hemoglobin (Bld) [Mass/Vol] 13.4 g/dL 11.8-15.4 [facility] Blood leukocytes automated c ount (number/volume)Ordered By: Cristal Bass on 02-06-2022 WBC (Bld) [#/Vol] 9.0 10*3/uL 4.5-11.0 [facility] COVID CepheidOrdered By: Sophia Bass on 02-06-2022 SARS-CoV-2 (COVID-19) Ab IA Ql Negative Negative [facility] Comment on above: This is a duplicate [employer] [place] [employer] CoV-2/Flu/RSV Plus RNA by RT-PCR result to be used for statistical tracking purpose only. SARS-CoV-2 (COVID-19) RNA NINFA+probe Ql (Unsp spec) [facility] Creatinine and Glomerular fi ltration rate.predicted panel (S/P/Bld)Ordered By: Cristal Bass on 02-06-2022 Creatinine [Mass/Vol] 0.98 mg/dL 0.44-1.03 [facility] Eosinophils Auto (Bld) [#/Vo l]Ordered By: Cristal Bass on 02-06-2022 Eosinophils (Bld) [#/Vol] 0.2 10*3/uL 0.0-0.45 [facility] Eosinophils/100 WBC Auto (Bl d)Ordered By: Cristal Bass on 02-06-2022 Eosinophils/100 WBC (Bld) 1.8 % . [facility] Erythrocyte distribution wid th Auto (RBC) [Ratio]Ordered By: Cristal Bass on 02-06-2022 Erythrocyte distribution width (RBC) [Ratio] 14.7 % 11.9-15.3 [facility] Estimated glomerular filtrat ion rate (GFR) non- AmericanOrdered By: Cristal Bass on 02-06-2022 GFR/1.73 sq M.predicted among non-blacks MDRD (S/P/Bld) [Vol rate/Area] 58 mL/Min [facility] Globulin Calc (S) [Mass/Vol] Ordered By: Cristal Bass on 02-06-2022 Globulin (S) [Mass/Vol] 3.2 g/dL [facility] Hematocrit Auto (Bld) [Volum e fraction]Ordered By: Cristal Bass on 02-06-2022 Hematocrit (Bld) [Volume fraction] 42.0 % 34.0-46.4 [facility] Laboratory - Hematology and Cell countsOrdered By: Cristal Bass on 02-06-2022 Nucleated RBC/100 WBC (Bld) [Ratio] 0.1 % 0-0.5 [facility] Laboratory - Microbiology an d Antimicrobial susceptibilityOrdered By: Cristal Bass on 02-06-2022 SARS-CoV-2 (COVID-19) RNA NINFA+probe Ql (Unsp spec) N/A [facility] Lymphocytes Auto (Bld) [#/Vo l]Ordered By: Cristal Bass on 02-06-2022 Lymphocytes (Bld) [#/Vol] 2.4 10*3/uL 1.00-4.8 [facility] Lymphocytes/100 WBC Auto (Bl d)Ordered By: Cristal Bass on 02-06-2022 Lymphocytes/100 WBC (Bld) 26.3 % . [facility] MCH Auto (RBC) [Entitic mass ]Ordered By: Cristal Bass on 02-06-2022 MCH (RBC) [Entitic mass] 26.0 pg 24.7-34.3 [facility] MCHC Auto (RBC) [Mass/Vol]Or dered By: Cristal Bass on 02-06-2022 MCHC (RBC) [Mass/Vol] 31.8 g/dL 32.0-35.0 [facility] MCV Auto (RBC) [Entitic vol] Ordered By: Cristal Bass on 02-06-2022 MCV (RBC) [Entitic vol] 81.7 fL 80-100 [facility] Monocytes Auto (Bld) [#/Vol] Ordered By: Cristal Bass on 02-06-2022 Monocytes (Bld) [#/Vol] 0.4 10*3/uL 0.0-0.8 [facility] Monocytes/100 WBC Auto (Bld) Ordered By: Cristal Bass on 02-06-2022 Monocytes/100 WBC (Bld) 4.6 % . [facility] Neutrophils Auto (Bld) [#/Vo l]Ordered By: Cristal Bass on 02-06-2022 Neutrophils (Bld) [#/Vol] 6.0 10*3/uL 1.8-7.7 [facility] Neutrophils/100 WBC Auto (Bl d)Ordered By: Cristal Bass on 02-06-2022 Neutrophils/100 WBC (Bld) 66.3 % . [facility] No Panel InformationOrdered By: Cristal Bass on 02-06-2022 Estimated GFR () > 60 mL/Min [facility] Comment on above: GFR estimated refere nce range: According to KDOQI guidelines, <60 ml/min/1.73m2 is sufficient to diagnose a patient with chronic kidney disease. Pharmacy Creatinine Clearance (Chem 69.84 [facility] Platelet mean volume Auto (B ld) [Entitic vol]Ordered By: Cristal Bass on 02-06-2022 Platelet mean volume (Bld) [Entitic vol] 8.0 fL 6.3-10.7 [facility] Platelets Auto (Bld) [#/Vol] Ordered By: Cristal Bass on 02-06-2022 Platelets (Bld) [#/Vol] 340 10*3/uL 150-450 [facility] Protein [Mass/volume] in Ser um or PlasmaOrdered By: Cristal Bass on 02-06-2022 Protein [Mass/Vol] 6.8 g/dL 6.1-7.9 [facility] RBC Auto (Bld) [#/Vol]Ordere d By: Cristal Bass on 02-06-2022 RBC (Bld) [#/Vol] 5.14 10*6/uL 3.60-5.00 [facility] Serum or plasma alanine eisenberg otransferase measurement without P-5'-P (enzymatic activiOrdered By: Cristal Bass on 02-06-2022 ALT No additional P-5'-P [Catalytic activity/Vol] 20 U/L 10-60 [facility] Serum or plasma albumin/glob ulin mass ratioOrdered By: Cristal Bass on 02-06-2022 Albumin/Globulin [Mass ratio] 1.1 {ratio} [facility] Serum or plasma alkaline nerissa sphatase measurement (enzymatic activity/volume)Ordered By: Cristal Bass on 02-06-2022 ALP [Catalytic activity/Vol] 120 U/L 32-92 [facility] Serum or plasma anion gap de terminationOrdered By: Cristal Bass on 02-06-2022 Anion gap [Moles/Vol] 17.6 mmol/L 6.0-15.0 [facility] Serum or plasma aspartate am inotransferase measurement (enzymatic activity/volume)Ordered By: Cristal Bass on 02-06-2022 AST [Catalytic activity/Vol] 22 U/L 10-42 [facility] Serum or plasma calcium kimberly urement (mass/volume)Ordered By: Cristal Bass on 02-06-2022 Calcium [Mass/Vol] 9.4 mg/dL 8.2-10.2 [facility] Serum or plasma chloride manjit surement (moles/volume)Ordered By: Cristal Bass on 02-06-2022 Chloride [Moles/Vol] 100 mmol/L 95-114 [facility] Serum or plasma glucose kimberly urement (mass/volume)Ordered By: Cristal Bass on 02-06-2022 Glucose [Mass/Vol] 100 mg/dL 70-100 [facility] Comment on above: ADA recommended refe rence rangeRandom Glucose Reference Range is dependent on time and content of last meal. Glucose of more than 200 mg/dL in a nonstressed, ambulatory subject supports the diagnosis of Diabetes Mellitus. Serum or plasma potassium me asurement (moles/volume)Ordered By: Cristal Bass on 02-06-2022 Potassium [Moles/Vol] 4.9 mmol/L 3.5-5.1 [facility] Serum or plasma sodium measu rement (moles/volume)Ordered By: Cristal Bass on 02-06-2022 Sodium [Moles/Vol] 138 mmol/L 136-146 [facility] Serum or plasma total biliru bin measurement (mass/volume)Ordered By: Cristal Bass on 02-06-2022 Bilirubin [Mass/Vol] 0.5 mg/dL 0.3-1.2 [facility] Serum or plasma total carbon dioxide measurement (moles/volume)Ordered By: Cristal Bass on 02-06-2022 CO2 [Moles/Vol] 25.3 mmol/L 22.0-30.0 [facility] Serum or plasma urea nitroge n measurement (mass/volume)Ordered By: Cristal Bass on 02-06-2022 Urea nitrogen [Mass/Vol] 35 mg/dL 9- [facility] Troponin I.cardiac [Mass/vol ume] in Serum or Plasma by High sensitivity methodOrdered By: Cristal Bass on 02-06-2022 Troponin I.cardiac High sensitivity method [Mass/Vol] 7 pg/mL 0-15 [facility] Basophils Auto (Bld) [#/Vol] Ordered By: Morena Bravo on 12-12-2021 Basophils (Bld) [#/Vol] 0.0 10*3/uL 0.0-0.2 [facility] Basophils/100 WBC Auto (Bld) Ordered By: Morena Bravo on 12-12-2021 Basophils/100 WBC (Bld) 0.6 % . [facility] Blood hemoglobin measurement (mass/volume)Ordered By: Morena Bravo on 12-12-2021 Hemoglobin (Bld) [Mass/Vol] 13.0 g/dL 11.8-15.4 [facility] Blood leukocytes automated c ount (number/volume)Ordered By: Morena Bravo on 12-12-2021 WBC (Bld) [#/Vol] 8.1 10*3/uL 4.5-11.0 [facility] Body fluid albumin measureme nt (mass/volume)Ordered By: Morena Bravo on 12-12-2021 Albumin (Body fld) [Mass/Vol] 3.5 g/dL 3.2-5.5 [facility] Cholesterol [Mass/volume] in Serum or PlasmaOrdered By: Morena Bravo on 12-12-2021 Cholesterol [Mass/Vol] 225 mg/dL 140-200 [facility] Comment on above: Chol less than 200 m g/dl low risk Chol 201-239 mg/dl borderline risk Chol 240 mg/dl and greater high risk Chol less than 200 m g/dl low riskChol 201-239 mg/dl borderline riskChol 240 mg/dl and greater high risk Cholesterol in LDL Calc [Mas s/Vol]Ordered By: Morena Bravo on 12-12-2021 Cholesterol in LDL [Mass/Vol] 125 mg/dL 0-100 [facility] Comment on above: LDL ATP III CLASSIFI CATION LDL less than 100 mg/dL Optimal LDL 100-129 mg/dL Near or above optimal LDL 130-159 mg/dL Borderline high LDL 160-189 mg/dL High LDL greater than 189 mg/dL Very high LDL ATP III CLASSIFI CATIONLDL less than 100 mg/dL OptimalLDL 100-129 mg/dL Near or above optimalLDL 130-159 mg/dL Borderline highLDL 160-189 mg/dL HighLDL greater than 189 mg/dL Very high Cholesterol in VLDL Calc [Ma ss/Vol]Ordered By: Morena Bravo on 12-12-2021 Cholesterol in VLDL [Mass/Vol] 40 mg/dL [facility] Creatinine and Glomerular fi ltration rate.predicted panel (S/P/Bld)Ordered By: Morena Bravo on 12-12-2021 Creatinine [Mass/Vol] 0.96 mg/dL 0.44-1.03 [facility] Eosinophils Auto (Bld) [#/Vo l]Ordered By: Morena Bravo on 12-12-2021 Eosinophils (Bld) [#/Vol] 0.2 10*3/uL 0.0-0.45 [facility] Eosinophils/100 WBC Auto (Bl d)Ordered By: Morena Bravo on 12-12-2021 Eosinophils/100 WBC (Bld) 2.8 % . [facility] Erythrocyte distribution wid th Auto (RBC) [Ratio]Ordered By: Morena Bravo on 12-12-2021 Erythrocyte distribution width (RBC) [Ratio] 14.1 % 11.9-15.3 [facility] Estimated glomerular filtrat ion rate (GFR) non- AmericanOrdered By: Morena Bravo on 12-12-2021 GFR/1.73 sq M.predicted among non-blacks MDRD (S/P/Bld) [Vol rate/Area] 60 mL/Min [facility] Globulin Calc (S) [Mass/Vol] Ordered By: Morena Bravo on 12-12-2021 Globulin (S) [Mass/Vol] 3.0 g/dL [facility] Hematocrit Auto (Bld) [Volum e fraction]Ordered By: Morena Bravo on 12-12-2021 Hematocrit (Bld) [Volume fraction] 40.4 % 34.0-46.4 [facility] Laboratory - Hematology and Cell countsOrdered By: Morena Bravo on 12-12-2021 Nucleated RBC/100 WBC (Bld) [Ratio] 0.1 % 0-0.5 [facility] Lymphocytes Auto (Bld) [#/Vo l]Ordered By: Morena Bravo on 12-12-2021 Lymphocytes (Bld) [#/Vol] 2.0 10*3/uL 1.00-4.8 [facility] Lymphocytes/100 WBC Auto (Bl d)Ordered By: Morena Bravo on 12-12-2021 Lymphocytes/100 WBC (Bld) 24.6 % . [facility] MCH Auto (RBC) [Entitic mass ]Ordered By: Morena Bravo on 12-12-2021 MCH (RBC) [Entitic mass] 26.5 pg 24.7-34.3 [facility] MCHC Auto (RBC) [Mass/Vol]Or dered By: Morena Bravo on 12-12-2021 MCHC (RBC) [Mass/Vol] 32.3 g/dL 32.0-35.0 [facility] MCV Auto (RBC) [Entitic vol] Ordered By: Morena Bravo on 12-12-2021 MCV (RBC) [Entitic vol] 82.0 fL 80-100 [facility] Monocytes Auto (Bld) [#/Vol] Ordered By: Morena Braov on 12-12-2021 Monocytes (Bld) [#/Vol] 0.4 10*3/uL 0.0-0.8 [facility] Monocytes/100 WBC Auto (Bld) Ordered By: Morena Bravo on 12-12-2021 Monocytes/100 WBC (Bld) 4.5 % . [facility] Neutrophils Auto (Bld) [#/Vo l]Ordered By: Morena Bravo on 12-12-2021 Neutrophils (Bld) [#/Vol] 5.5 10*3/uL 1.8-7.7 [facility] Neutrophils/100 WBC Auto (Bl d)Ordered By: Morena Bravo on 12-12-2021 Neutrophils/100 WBC (Bld) 67.5 % . [facility] No Panel InformationOrdered By: Morena Bravo on 12-12-2021 Estimated GFR () > 60 mL/Min [facility] Comment on above: GFR estimated refere nce range: According to KDOQI guidelines, <60 ml/min/1.73m2 is sufficient to diagnose a patient with chronic kidney disease. Pharmacy Creatinine Clearance (Chem N/A [facility] Platelet mean volume Auto (B ld) [Entitic vol]Ordered By: Morena Bravo on 12-12-2021 Platelet mean volume (Bld) [Entitic vol] 7.9 fL 6.3-10.7 [facility] Platelets Auto (Bld) [#/Vol] Ordered By: Morena Bravo on 12-12-2021 Platelets (Bld) [#/Vol] 332 10*3/uL 150-450 [facility] Protein [Mass/volume] in Ser um or PlasmaOrdered By: Morena Bravo on 12-12-2021 Protein [Mass/Vol] 6.5 g/dL 6.1-7.9 [facility] RBC Auto (Bld) [#/Vol]Ordere d By: Morena Bravo on 12-12-2021 RBC (Bld) [#/Vol] 4.93 10*6/uL 3.60-5.00 [facility] Serum or plasma alanine eisenberg otransferase measurement without P-5'-P (enzymatic activiOrdered By: Morena Bravo on 12-12-2021 ALT No additional P-5'-P [Catalytic activity/Vol] 21 U/L 10-60 [facility] Serum or plasma albumin/glob ulin mass ratioOrdered By: Morean Bravo on 12-12-2021 Albumin/Globulin [Mass ratio] 1.2 {ratio} [facility] Serum or plasma alkaline nerissa sphatase measurement (enzymatic activity/volume)Ordered By: Morena Bravo on 12-12-2021 ALP [Catalytic activity/Vol] 120 U/L 32-92 [facility] Serum or plasma aspartate am inotransferase measurement (enzymatic activity/volume)Ordered By: Morena Bravo on 12-12-2021 AST [Catalytic activity/Vol] 18 U/L 10-42 [facility] Serum or plasma calcium kimberly urement (mass/volume)Ordered By: Morena Bravo on 12-12-2021 Calcium [Mass/Vol] 10.0 mg/dL 8.2-10.2 [facility] Serum or plasma chloride manjit surement (moles/volume)Ordered By: Morena Bravo on 12-12-2021 Chloride [Moles/Vol] 98 mmol/L 95-114 [facility] Serum or plasma glucose kimberly urement (mass/volume)Ordered By: Morena Bravo on 12-12-2021 Glucose [Mass/Vol] 97 mg/dL 70-100 [facility] Comment on above: ADA recommended refe rence range Random Glucose Reference Range is dependent on time and content of last meal. Glucose of more than 200 mg/dL in a nonstressed, ambulatory subject supports the diagnosis of Diabetes Mellitus. ADA recommended refe rence rangeRandom Glucose Reference Range is dependent on time and content of last meal. Glucose of more than 200 mg/dL in a nonstressed, ambulatory subject supports the diagnosis of Diabetes Mellitus. Serum or plasma high density lipoprotein (HDL) cholesterol measurementOrdered By: Morena Bravo on 12-12-2021 Cholesterol in HDL [Mass/Vol] 59 mg/dL 35-85 [facility] Comment on above: HDL CHOL ATP-III CLA SSIFICATION Cardiovascular Risk HDL > or equal to 60 mg/dL LOW HDL < 40 mg/dL HIGH HDL CHOL ATP-III CLA SSIFICATION Cardiovascular RiskHDL > or equal to 60 mg/dL LOWHDL < 40 mg/dL HIGH Serum or plasma potassium me asurement (moles/volume)Ordered By: Morena Bravo on 12-12-2021 Potassium [Moles/Vol] 5.1 mmol/L 3.5-5.1 [facility] Serum or plasma sodium measu rement (moles/volume)Ordered By: Morena Bravo on 12-12-2021 Sodium [Moles/Vol] 135 mmol/L 136-146 [facility] Serum or plasma total biliru bin measurement (mass/volume)Ordered By: Morena Bravo on 12-12-2021 Bilirubin [Mass/Vol] 0.3 mg/dL 0.3-1.2 [facility] Serum or plasma total carbon dioxide measurement (moles/volume)Ordered By: Morena Bravo on 12-12-2021 CO2 [Moles/Vol] 26.3 mmol/L 22.0-30.0 [facility] Serum or plasma total choles terol/high density lipoprotein (HDL) cholesterol mass ratOrdered By: Morena Bravo on 12-12-2021 Cholesterol.total/Chol esterol in HDL [Mass ratio] 3.8 {ratio} <5.0 [facility] Serum or plasma urea nitroge n measurement (mass/volume)Ordered By: oMrena Bravo on 12-12-2021 Urea nitrogen [Mass/Vol] 32 mg/dL 9-23 [facility] TSH DL <= 0.005 mIU/L QnOrde red By: Morena Bravo on 12-12-2021 TSH Qn 2.66 m[IU]/L 0.45-5.33 [facility] Thyroxine (T4) free [Mass/vo lume] in Serum or PlasmaOrdered By: Morena Bravo on 12-12-2021 Free T4 [Mass/Vol] 0.78 ng/dL 0.61-1.12 [facility] Triglyceride [Mass/volume] i n Serum or PlasmaOrdered By: Morena Bravo on 12-12-2021 Triglyceride [Mass/Vol] 203 mg/dL 35-149 [facility] Comment on above: TRIG ATP III CLASSIF ICATION TRIG less than 150 mg/dL Normal TRIG 150-199 mg/dL Borderline high TRIG 200-500 mg/dL High TRIG greater than 500 mg/dL Very high Standard traceable to the Center for Disease Conrtrol and Prevention (CDC) test method. TRIG ATP III CLASSIF ICATIONTRIG less than 150 mg/dL NormalTRIG 150-199 mg/dL Borderline highTRIG 200-500 mg/dL High TRIG greater than 500 mg/dL Very highStandard traceable to the Center for Disease Conrtrol and Prevention (CDC) test method. A1C HEMOGLOBINon 11-22-2021 HbA1c (Bld) [Mass fraction] 6.3 % [employer] Other HbA1c (Bld) [Mass fraction]o n 11-22-2021 A1C HEMOGLOBIN [employer] Other A1C HEMOGLOBINon 07-29-2021 HbA1c (Bld) [Mass fraction] 6.9 % [employer] Other HbA1c (Bld) [Mass fraction]o n 07-29-2021 A1C HEMOGLOBIN [employer] Other CBC AUTO DIFFon 06-11-2021 BASO # 0.0 103/ul Normal 0.0-0.1 [facility] Comment on above: Performed By: #### C BC #### [facility] [address] [place] [address] Dr. Yesenia Ruffin Basophils/100 WBC (Bld) 0.4 % Normal 0.2-2.0 [facility] Comment on above: Performed By: #### C BC #### [facility] [address] [place] [address] Dr. Yesenia Ruffin EO # 0.0 103/ul Normal 0.0-0.7 [facility] Comment on above: Performed By: #### C BC #### [facility] [address] [place] [address] Dr. Yesenia Ruffin Eosinophils/100 WBC (Bld) 0.4 % Critically low 0.9-7.0 [facility] Comment on above: Performed By: #### C BC #### [facility] [address] [place] [address] Dr. Yesenia Ruffin Erythrocyte distribution width (RBC) [Ratio] 12.8 % Normal 11.0-15.0 [facility] Comment on above: Performed By: #### C BC #### [facility] [address] [place] [address] Dr. Yesenia Ruffin Hematocrit (Bld) [Volume fraction] 36.9 % Normal 36.0-48.0 [facility] Comment on above: Performed By: #### C BC #### [facility] [address] [place] [address] Dr. Yesenia Ruffin Hemoglobin (Bld) [Mass/Vol] 11.6 g/dL Critically low 12.0-16.0 [facility] Comment on above: Performed By: #### C BC #### [facility] [address] [place] [address] Dr. Yesenia Ruffin IG # 0.06 10e3/ul Critically high 0.00-0.03 [facility] Comment on above: Performed By: #### C BC #### [facility] [address] [place] [address] Dr. Yesenia Ruffin IG % 0.6 % Critically high 0.0-0.5 [facility] Comment on above: Performed By: #### C BC #### [facility] [address] [place] [address] Dr. Yesenia Ruffin LYMPH # 2.5 103/ul Normal 1.2-3.8 [facility] Comment on above: Performed By: #### C BC #### [facility] [address] [place] [address] Dr. Yesenia Ruffin Lymphocytes/100 WBC (Bld) 23.1 % Normal 20.5-60.0 [facility] Comment on above: Performed By: #### C BC #### [facility] [address] [place] [address] Dr. Yesenia Ruffin MANUAL DIFF REQ NO Normal [facility] Comment on above: Performed By: #### C BC #### [facility] [address] [place] [address] Dr. Yesenia Ruffin MCH (RBC) [Entitic mass] 27.2 pg Normal 26.7-34.0 [facility] Comment on above: Performed By: #### C BC #### [facility] [address] [place] [address] Dr. Yesenia Ruffin MCHC (RBC) [Mass/Vol] 31.4 g/dL Normal 29.9-35.2 [facility] Comment on above: Performed By: #### C BC #### [facility] [address] [place] [address] Dr. Yesenia Ruffin MCV (RBC) [Entitic vol] 86.4 fL Normal 81.0-99.0 [facility] Comment on above: Performed By: #### C BC #### [facility] [address] [place] [address] Dr. Yesenia Ruffin MONO # 0.5 103/ul Normal 0.3-0.8 [facility] Comment on above: Performed By: #### C BC #### [facility] [address] [place] [address] Dr. Yesenia Ruffin Monocytes/100 WBC (Bld) 5.0 % Normal 1.7-12.0 [facility] Comment on above: Performed By: #### C BC #### [facility] [address] [place] [address] Dr. Yesenia Ruffin NEUT # 7.7 103/ul Critically high 1.4-6.5 [facility] Comment on above: Performed By: #### C BC #### [facility] [address] [place] [address] Dr. Yesenia Ruffin Neutrophils/100 WBC (Bld) 70.5 % Normal 43.0-75.0 [facility] Comment on above: Performed By: #### C BC #### [facility] [address] [place] [address] Dr. Yesenia Ruffin Platelet mean volume (Bld) [Entitic vol] 9.2 fL Critically low 9.5-13.5 [facility] Comment on above: Performed By: #### C BC #### [facility] [address] [place] [address] Dr. Yesenia Ruffin PLT 322 103/ul Normal 150-450 [facility] Comment on above: Performed By: #### C BC #### [facility] [address] [place] [address] Dr. Yesenia Ruffin RBC 4.27 106/ul Normal 4.20-5.40 [facility] Comment on above: Performed By: #### C BC #### [facility] [address] [place] [address] Dr. Yesenia Ruffin WBC 10.9 103/ul Normal 4.0-11.0 [facility] Comment on above: Performed By: #### C BC #### [facility] [address] [place] [address] Dr. Yesenia Ruffin POINT OF CARE GLUCOSEon Glucose [Mass/Vol] 132 mg/dL Critically high 74-106 [facility] Comment on above: Performed By: #### L ACT #### [facility] [address] [place] [address] Dr. Yesenia Ruffin PROF CHEM 8 (BAS METB)on Anion gap [Moles/Vol] 10.5 mmol/L Normal [facility] Comment on above: Performed By: #### D RUGRPD #### [facility] [address] [place] [address] Dr. Yesenia Ruffin Calcium [Mass/Vol] 8.7 mg/dL Normal 8.4-10.2 [facility] Comment on above: Performed By: #### D RUGRPD #### [facility] [address] [place] [address] Dr. Yesenia Ruffin Chloride [Moles/Vol] 104 mmol/L Normal 98-107 [facility] Comment on above: Performed By: #### D RUGRPD #### [facility] [address] [place] [address] Dr. Yesenia Ruffin CO2 [Moles/Vol] 30.6 mmol/L Critically high 22.0-30.0 [facility] Comment on above: Performed By: #### D RUGRPD #### [facility] [address] [address] [address] Yesenia Ruffin Creatinine [Mass/Vol] 1.00 mg/dL Normal 0.52-1.04 [facility] Comment on above: Performed By: #### D RUGRPD #### [facility] [address] [address] [address] Yesenia Ruffin EGFR-AF TRINIDADIAN >60 Normal >=60 [facility] Comment on above: Performed By: #### D RUGRPD #### [facility] [address] [address] [address] Yesenia Ruffin EGFR-NON AF TRINIDADIAN 57 mL/min/1.73m2 Critically low >=60 [facility] Comment on above: Performed By: #### D RUGRPD #### [facility] [address] [address] [address] Yesenia Ruffin Glucose [Mass/Vol] 120 mg/dL Critically high 74-106 [facility] Comment on above: Performed By: #### D RUGRPD #### [facility] [address] [address] [address] Yesenia Ruffin Potassium [Moles/Vol] 3.1 mmol/L Critically low 3.4-5.0 [facility] Comment on above: Performed By: #### D RUGRPD #### [facility] [address] [address] [address] Yesenia Ruffin Sodium [Moles/Vol] 142 mmol/L Normal 137-145 [facility] Comment on above: Performed By: #### D RUGRPD #### [facility] [address] [address] [address] Yesenia Ruffin Urea nitrogen [Mass/Vol] 17.0 mg/dL Normal 7.0-17.0 [facility] Comment on above: Performed By: #### D RUGRPD #### [facility] [address] [address] [address] Yesenia Ruffin Urea nitrogen/Creatinine [Mass ratio] 17.0 mg/mg Normal [facility] Comment on above: Performed By: #### D RUGRPD #### [facility] [address] [address] [address] Yesenia Ruffin CBC AUTO DIFFon 06-10-2021 BASO # 0.0 103/ul Normal 0.0-0.1 [facility] Comment on above: Performed By: #### D RUGRPD #### [facility] [address] [address] [address] Yesenia Ruffin Basophils/100 WBC (Bld) 0.4 % Normal 0.2-2.0 [facility] Comment on above: Performed By: #### D RUGRPD #### [facility] [address] [place] [address] Dr. Yesenia Ruffin EO # 0.0 103/ul Normal 0.0-0.7 [facility] Comment on above: Performed By: #### D RUGRPD #### [facility] [address] [place] [address] Dr. Yesenia Ruffin Eosinophils/100 WBC (Bld) 0.2 % Critically low 0.9-7.0 [facility] Comment on above: Performed By: #### D RUGRPD #### [facility] [address] [place] [address] Dr. Yesenia Ruffin Erythrocyte distribution width (RBC) [Ratio] 12.8 % Normal 11.0-15.0 [facility] Comment on above: Performed By: #### D RUGRPD #### [facility] [address] [place] [address] Dr. Yesenia Ruffin Hematocrit (Bld) [Volume fraction] 36.4 % Normal 36.0-48.0 [facility] Comment on above: Performed By: #### D RUGRPD #### [facility] [address] [place] [address] Dr. Yesenia Ruffin Hemoglobin (Bld) [Mass/Vol] 11.6 g/dL Critically low 12.0-16.0 [facility] Comment on above: Performed By: #### D RUGRPD #### [facility] [address] [place] [address] Dr. Yesenia Ruffin IG # 0.02 10e3/ul Normal 0.00-0.03 [facility] Comment on above: Performed By: #### D RUGRPD #### [facility] [address] [address] [address] Yesenia Ruffin IG % 0.2 % Normal 0.0-0.5 [facility] Comment on above: Performed By: #### D RUGRPD #### [facility] [address] [address] [address] Yesenia Ruffin LYMPH # 1.7 103/ul Normal 1.2-3.8 [facility] Comment on above: Performed By: #### D RUGRPD #### [facility] [address] [address] [address] Yesenia Ruffin Lymphocytes/100 WBC (Bld) 16.3 % Critically low 20.5-60.0 [facility] Comment on above: Performed By: #### D RUGRPD #### [facility] [address] [address] [address] Yesenia Ruffin MANUAL DIFF REQ NO Normal [facility] Comment on above: Performed By: #### D RUGRPD #### [facility] [address] [address] [address] Yesenia Ruffin MCH (RBC) [Entitic mass] 27.5 pg Normal 26.7-34.0 [facility] Comment on above: Performed By: #### D RUGRPD #### [facility] [address] [address] [address] Yesenia Ruffin MCHC (RBC) [Mass/Vol] 31.9 g/dL Normal 29.9-35.2 [facility] Comment on above: Performed By: #### D RUGRPD #### [facility] [address] [address] [address] Yesenia Ruffin MCV (RBC) [Entitic vol] 86.3 fL Normal 81.0-99.0 [facility] Comment on above: Performed By: #### D RUGRPD #### [facility] [address] [address] [address] Yesenia Ruffin MONO # 0.5 103/ul Normal 0.3-0.8 [facility] Comment on above: Performed By: #### D RUGRPD #### [facility] [address] [address] [address] Yesenia Ruffin Monocytes/100 WBC (Bld) 5.1 % Normal 1.7-12.0 [facility] Comment on above: Performed By: #### D RUGRPD #### [facility] [address] [place] [address] Dr. Yesenia Ruffin NEUT # 8.2 103/ul Critically high 1.4-6.5 [facility] Comment on above: Performed By: #### D RUGRPD #### [facility] [address] [place] [address] Dr. Yesenia Ruffin Neutrophils/100 WBC (Bld) 77.8 % Critically high 43.0-75.0 [facility] Comment on above: Performed By: #### D RUGRPD #### [facility] [address] [place] [address] Dr. Yesenia Ruffin Platelet mean volume (Bld) [Entitic vol] 9.0 fL Critically low 9.5-13.5 [facility] Comment on above: Performed By: #### D RUGRPD #### [facility] [address] [place] [address] Dr. Yesenia Ruffin PLT 328 103/ul Normal 150-450 [facility] Comment on above: Performed By: #### D RUGRPD #### [facility] [address] [place] [address] Dr. Yesenia Ruffin RBC 4.22 106/ul Normal 4.20-5.40 [facility] Comment on above: Performed By: #### D RUGRPD #### [facility] [address] [place] [address] Dr. Yesenia Ruffin WBC 10.6 103/ul Normal 4.0-11.0 [facility] Comment on above: Performed By: #### D RUGRPD #### [facility] [address] [place] [address] Dr. Yesenia Ruffin DRUG SCREEN RAPID (URINE)on 06-10-2021 AMP Negative Normal NEGATIVE [facility] Comment on above: Performed By: #### D RUGRPD #### [facility] [address] [place] [address] Dr. Yesenia Ruffin BAR Negative Normal NEGATIVE [facility] Comment on above: Performed By: #### D RUGRPD #### [facility] [address] [place] [address] Dr. Yesenia Ruffin BUP Negative Normal NEGATIVE [facility] Comment on above: Performed By: #### D RUGRPD #### [facility] [address] [place] [address] Dr. Yesenia Ruffin BZO Negative Normal NEGATIVE [facility] Comment on above: Performed By: #### D RUGRPD #### [facility] [address] [place] [address] Dr. Yesenia Ruffin ROSE MARIE Negative Normal NEGATIVE [facility] Comment on above: Performed By: #### D RUGRPD #### [facility] [address] [place] [address] Dr. Yesenia Ruffin CUT-OFFS SEE BELOW Normal [facility] Comment on above: Result Comment: AMP (Amphetamine): 500ng/mL, BAR (Barbituates): 200 ng/mL, BZO (Benzodiazepines): 150 ng/mL, BUP (Buprenorphine): 10 ng/mL, ROSE MARIE (Cocaine): 150 ng/mL, mAMP (Methamphetamine): 500 ng/mL, MTD (Methadone): 200 ng/mL, OPI (Opiates): 100 ng/mL, OXY (Oxycodone): 100 ng/mL, PCP (Phencyclidine): 25 ng/mL, PPX (Propoxyphene): 300 ng/mL, THC (Cannabinoids): 50 ng/mL, TCA (Trycyclic Antidepressants): 300 ng/mL Performed By: #### D RUGRPD #### [facility] [address] [place] [address] Dr. Yesenia Ruffin DRUG CUT HEADER DRUG CLASS TEST SYST EM CUT-OFF CONCENTRATIONS ARE FOLLOWS: Normal [facility] Comment on above: Performed By: #### D RUGRPD #### [facility] [address] [place] [address] Dr. Yesenia Ruffin mAMP Negative Normal NEGATIVE [facility] Comment on above: Performed By: #### D RUGRPD #### [facility] [address] [address] [address] Yesenia Ruffin MTD Negative Normal NEGATIVE [facility] Comment on above: Performed By: #### D RUGRPD #### [facility] [address] [address] [address] Yesenia Ruffin OPI Positive Abnormal NEGATIVE [facility] Comment on above: Performed By: #### D RUGRPD #### [facility] [address] [place] [address] Dr. Yesenia Ruffin OXY Negative Normal NEGATIVE [facility] Comment on above: Performed By: #### D RUGRPD #### [facility] [address] [place] [address] Dr. Yesenia Ruffin PCP Negative Normal NEGATIVE [facility] Comment on above: Performed By: #### D RUGRPD #### [facility] [address] [place] [address] Dr. Yesenia Ruffin PPX Negative Normal NEGATIVE [facility] Comment on above: Performed By: #### D RUGRPD #### [facility] [address] [place] [address] Dr. Yesenia Ruffin TCA Negative Normal NEGATIVE [facility] Comment on above: Performed By: #### D RUGRPD #### [facility] [address] [place] [address] Dr. Yesenia Ruffin THC Negative Normal NEGATIVE [facility] Comment on above: Performed By: #### D RUGRPD #### [facility] [address] [place] [address] Dr. Yesenia Ruffin GLYCOHEMOGLOBIN A1Con 2021 ADA RECOMMENDATION ADA THERAPEUTIC TARG ET 6.0 - 7.0 ACTION SUGGESTED > 7.0 Normal [facility] Comment on above: Performed By: #### L ACT #### [facility] [address] [place] [address] Dr. Yesenia Ruffin Glucose [Mass/Vol] 151 mg/dL Normal [facility] Comment on above: Performed By: #### L ACT #### [facility] [address] [address] [address] Yesenia Ruffin HbA1c (Bld) [Mass fraction] 6.9 % Critically high <=6.0 [facility] Comment on above: Performed By: #### L ACT #### [facility] [address] [address] [address] Yesenia Ruffin POINT OF CARE GLUCOSEon Glucose [Mass/Vol] 97 mg/dL Normal 74-106 [facility] Comment on above: Performed By: #### P OCGLUC #### [facility] [address] [address] [address] Yesenia Ruffin Glucose [Mass/Vol] 142 mg/dL Critically high -106 [facility] Comment on above: Performed By: #### D RUGRPD #### [facility] [address] [address] [address] Yesenia Ruffin Glucose [Mass/Vol] 127 mg/dL Critically high [facility]106 [facility] Comment on above: Performed By: #### D RUGRPD #### [facility] [address] [address] [address] Yesenia Ruffin Glucose [Mass/Vol] 155 mg/dL Critically high -106 [facility] Comment on above: Performed By: #### P OCGLUC #### [facility] [facility] [address] [address] [address] Yesenia Ruffin PROF CHEM 8 (BAS METB)on Anion gap [Moles/Vol] 9.6 mmol/L Normal [facility] Comment on above: Performed By: #### D RUGRPD #### [facility] [address] [address] [address] Yesenia Ruffin Calcium [Mass/Vol] 8.9 mg/dL Normal 8.4-10.2 [facility] Comment on above: Performed By: #### D RUGRPD #### [facility] [address] [address] [address] Yesenia Ruffin Chloride [Moles/Vol] 101 mmol/L Normal 98-107 [facility] Comment on above: Performed By: #### D RUGRPD #### [facility] [address] [address] [address] Yesenia Ruffin CO2 [Moles/Vol] 30.9 mmol/L Critically high 22.0-30.0 [facility] Comment on above: Performed By: #### D RUGRPD #### [facility] [address] [address] [address] Yesenia Ruffin Creatinine [Mass/Vol] 1.04 mg/dL Normal 0.52-1.04 [facility] Comment on above: Performed By: #### D RUGRPD #### [facility] [address] [place] [address] Dr. Yesenia Ruffin EGFR-AF TRINIDADIAN >60 Normal >=60 [facility] Comment on above: Performed By: #### D RUGRPD #### [facility] [address] [address] [address] Yesenia Ruffin EGFR-NON AF TRINIDADIAN 55 mL/min/1.73m2 Critically low >=60 [facility] Comment on above: Performed By: #### D RUGRPD #### [facility] [address] [place] [address] Dr. Yesenia Ruffin Glucose [Mass/Vol] 133 mg/dL Critically high 74-106 [facility] Comment on above: Performed By: #### D RUGRPD #### [facility] [address] [address] [address] Yesenia Ruffin Potassium [Moles/Vol] 3.5 mmol/L Normal 3.4-5.0 [facility] Comment on above: Performed By: #### D RUGRPD #### [facility] [address] [address] [address] Yesenia Ruffin Sodium [Moles/Vol] 138 mmol/L Normal 137-145 [facility] Comment on above: Performed By: #### D RUGRPD #### [facility] [address] [address] [address] Yesenia Ruffin Urea nitrogen [Mass/Vol] 27.0 mg/dL Critically high 7.0-17.0 [facility] Comment on above: Performed By: #### D RUGRPD #### [facility] [address] [place], [place] [address] Dr. Yesenia Ruffin Urea nitrogen/Creatinine [Mass ratio] 26.0 mg/mg Normal [facility] Comment on above: Performed By: #### D RUGRPD #### [facility] [address] [place], [place] [address] Dr. Yesenia Ruffin US SINGLE QUAD RT UPPERon US SINGLE QUAD RT UPPER Ultrasound abdomen right upper quadrant HISTORY: pain COMPARISON: None. TECHNIQUE: Dedicated transabdominal right upper quadrant ultrasound was performed. FINDINGS: The gallbladder is nondistended and without focal wall abnormality. There is no discrete gallstone identified. There is a small amount of hypoechoic material dependent in the gallbladder compatible with tiny amount of sludge. On one image, there is a 2 mm echogenic structure along the anterior gallbladder wall, probably twinkle artifact rather than a tiny gallbladder polyp. The gallbladder wall measures 1 mm in thickness. No pericholecystic fluid is seen, and the sonographic Bailey's sign is negative. The proximal common bile duct measures 2 mm in diameter. There is no intrahepatic bile duct dilatation. There is a background of diffusely increased echogenicity throughout the liver. The liver measures 19 cm across right hepatic lobe. No discrete liver lesion. There is normal hepatopedal flow the main portal vein. The visualized pancreas is normal. Portions of the pancreas are obscured by overlying bowel gas. The right kidney measures 10.6 x 5.2 x 4.1 cm. There is no hydronephrosis in the right kidney. There is no fluid in the right upper quadrant. IMPRESSION: 1. Small amount of gallbladder sludge. No discrete gallstones or sonographic evidence of acute cholecystitis. On one image, there is a 2 mm echogenic structure along the anterior gallbladder wall, probably twinkle artifact from adenomyomatosis and less likely a tiny gallbladder polyp. Follow-up gallbladder ultrasound recommended in one year. 2. Normal caliber common bile duct at 2 mm. 3. Fatty infiltration of the liver. 4. Right kidney without hydronephrosis. Electronically authenticated by: KELSIE MAR Date: 2021-06-10 12:32 Normal [facility] AMYLASEon 06-09-2021 Amylase [Catalytic activity/Vol] 38 U/L Normal 31-110 [facility] Comment on above: Performed By: #### L ACT #### [facility] [address] [place] [address] Dr. Yesenia Ruffin CBC AUTO DIFFon 06-09-2021 BASO # 0.0 103/ul Normal 0.0-0.1 [facility] Comment on above: Performed By: #### C BC #### [facility] [address] [place] [address] Dr. Yesenia Ruffin Basophils/100 WBC (Bld) 0.3 % Normal 0.2-2.0 [facility] Comment on above: Performed By: #### C BC #### [facility] [address] [place] [address] Dr. Yesenia Ruffin EO # 0.0 103/ul Normal 0.0-0.7 [facility] Comment on above: Performed By: #### C BC #### [facility] [address] [place] [address] Dr. Yesenia Ruffin Eosinophils/100 WBC (Bld) 0.2 % Critically low 0.9-7.0 [facility] Comment on above: Performed By: #### C BC #### [facility] [address] [place] [address] Dr. Yesenia Ruffin Erythrocyte distribution width (RBC) [Ratio] 12.7 % Normal 11.0-15.0 [facility] Comment on above: Performed By: #### C BC #### [facility] [address] [place] [address] Dr. Yesenia Ruffin Hematocrit (Bld) [Volume fraction] 39.9 % Normal 36.0-48.0 [facility] Comment on above: Performed By: #### C BC #### [facility] [address] [place] [address] Dr. Yesenia Ruffin Hemoglobin (Bld) [Mass/Vol] 13.1 g/dL Normal 12.0-16.0 [facility] Comment on above: Performed By: #### C BC #### [facility] [address] [place] [address] Dr. Yesenia Ruffin IG # 0.05 10e3/ul Critically high 0.00-0.03 [facility] Comment on above: Performed By: #### C BC #### [facility] [address] [place] [address] Dr. Yesenia Ruffin IG % 0.4 % Normal 0.0-0.5 [facility] Comment on above: Performed By: #### C BC #### [facility] [address] [place] [address] Dr. Yesenia Ruffin LYMPH # 1.9 103/ul Normal 1.2-3.8 [facility] Comment on above: Performed By: #### C BC #### [facility] [address] [place] [address] Dr. Yesenia Ruffin Lymphocytes/100 WBC (Bld) 14.7 % Critically low 20.5-60.0 [facility] Comment on above: Performed By: #### C BC #### [facility] [address] [place] [address] Dr. Yesenai Ruffin MANUAL DIFF REQ NO Normal [facility] Comment on above: Performed By: #### C BC #### [facility] [address] [place] [address] Dr. Yesenia Ruffin MCH (RBC) [Entitic mass] 27.6 pg Normal 26.7-34.0 [facility] Comment on above: Performed By: #### C BC #### [facility] [address] [place] [address] Dr. Yesenia Ruffin MCHC (RBC) [Mass/Vol] 32.8 g/dL Normal 29.9-35.2 [facility] Comment on above: Performed By: #### C BC #### [facility] [address] [place] [address] Dr. Yesenia Ruffin MCV (RBC) [Entitic vol] 84.0 fL Normal 81.0-99.0 [facility] Comment on above: Performed By: #### C BC #### [facility] [address] [place] [address] Dr. Yesenia Ruffin MONO # 0.7 103/ul Normal 0.3-0.8 [facility] Comment on above: Performed By: #### C BC #### [facility] [address] [place] [address] Dr. Yesenia Ruffin Monocytes/100 WBC (Bld) 5.1 % Normal 1.7-12.0 [facility] Comment on above: Performed By: #### C BC #### [facility] [address] [place] [address] Dr. Yesenia Ruffin NEUT # 10.4 103/ul Critically high 1.4-6.5 [facility] Comment on above: Performed By: #### C BC #### [facility] [address] [place] [address] Dr. Yesenia Ruffin Neutrophils/100 WBC (Bld) 79.3 % Critically high 43.0-75.0 [facility] Comment on above: Performed By: #### C BC #### [facility] [address] [place] [address] Dr. Yesenia Ruffin Platelet mean volume (Bld) [Entitic vol] 9.0 fL Critically low 9.5-13.5 [facility] Comment on above: Performed By: #### C BC #### [facility] [address] [place] [address] Dr. Yesenia Ruffin PLT 380 103/ul Normal 150-450 [facility] Comment on above: Performed By: #### C BC #### [facility] [address] [place] [address] Dr. Yesenia Ruffin RBC 4.75 106/ul Normal 4.20-5.40 [facility] Comment on above: Performed By: #### C BC #### [facility] [address] [place] [address] Dr. Yesenia Ruffin WBC 13.1 103/ul Critically high 4.0-11.0 [facility] Comment on above: Performed By: #### C BC #### [facility] [address] [place] [address] ABD/PELV Chance Nagy 06-09-19 CT ABD/PELV W CON EXAMINATION: CT ABD/ PELV W CON HISTORY: Abdominal pain COMPARISON: None. TECHNIQUE: CT of the abdomen/pelvis with intravenous contrast. Additional delayed imaging through the pelvis. Dose reduction techniques were achieved by using automated exposure control and/or adjustment of mA and/or kV according to patient size and/or use of iterative reconstruction technique. 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 Tubes/lines/drains: None. CHEST: Lungs: Calcified pleural plaques along the right lung base with mild adjacent linear scarring. Cardiac and vascular: No cardiomegaly or significant pericardial effusion. Small hiatal hernia. ABDOMEN: Liver: Unremarkable. Gallbladder and Biliary Tree: Unremarkable. Spleen: Unremarkable. Pancreas: Unremarkable. Adrenal Glands: Unremarkable. Kidneys, Ureters, Bladder: Left interpolar cortical renal cyst measuring 1.4 cm with adjacent peripheral coarse calcification measuring 5 mm. No urolithiasis. No hydronephrosis or hydroureterosis. Small right posterior lateral bladder diverticulum. Gastrointestinal: No mural thickening or inflammatory changes. No dilated loops of small or large bowel. Normal appendix. Reproductive organ(s): Right intraovarian cyst with fluid attenuation measuring 3.4 cm. Additional ovoid soft tissue focus along the left adnexa adjacent to the uterus, likely left ovary. Lobulated cystic focus along the left posterior lateral pelvic wall (just outside the mesorectal fascia, Cristal Garry) at the level of the cervix with fluid attenuation measuring approximately 2.7 x 2.2 cm. Lymphatic: No concerning retroperitoneal, mesenteric, or inguinal adenopathy. Vessels: Unremarkable. BONES AND SOFT TISSUE: Bones: No acute fracture. No concerning osseous lesions. Soft Tissue: Within normal limits. IMPRESSION: 1. No acute intra-abdominal/pelvic findings. 2. Left renal Bosniak 2F cyst. Per Bosniak criteria, a reasonable initial follow-up would be 6 months. 3. Right ovarian cyst, simple appearing on CT measuring 3.4 cm. Per ACR white white paper (given unknown postmenopausal status or patient's age above 50), consider dedicated pelvic ultrasound. - Likely normal-appearing left ovary (measuring 1.5 x 2.2 cm) along the left adnexa although pelvic sidewall lymph node would be difficult to exclude. 4. Lobulated cystic focus along the posterior lateral aspect of the pelvic sidewall, atypical in appearance for free fluid. This finding could represent a lymphocele, paraovarian cyst, or peritoneal inclusion cyst in the setting of prior . 5. Calcified pleural plaques. Electronically authenticated by: JORDAN MARCIAL Date: 2021-06-09 10:04 Normal [facility] Covid-19 PCR ([facility])on SARS-CoV-2 (COVID-19) RNA NINFA+probe Ql (Unsp spec) Not detected Normal NOT DETECTED [facility] Comment on above: Result Comment: When diagnostic testing is negative, the possibility of a false negative should be considered in the context of a patient's recent exposures and the presence of clinical signs and symptoms consistent with SARS-CoV-2. This test is not yet approved or cleared by the [place] FDA. When there are no FDA-approved or cleared tests available, and other criteria are met, FDA can make tests available under an emergency access mechanism called an Emergency Use Authorization (EUA). The EUA for this test is supported by the [place] of Health and Human Service's declaration that circumstances exist to justify the emergency use of in vitro diagnostics for the detection and/or diagnosis of the virus that causes COVID-19. This EUA will remain in effect for the duration of the COVID-19 declaration justifying emergency of IVDs, unless it is terminated or revoked by the FDA (after which the test may no longer be used). Performed By: #### L ACT #### [facility] [address] [place] [address] Dr. Yesenia Ruffin ER URINE PROFILEon 2 Bilirubin Ql (U) Negative Normal NEGATIVE [facility] Comment on above: Performed By: #### L ACT #### [facility] [address] [place] [address] Dr. Yesenia Ruffin Clarity (U) CLEAR Normal CLEAR [facility] Comment on above: Performed By: #### L ACT #### [facility] [address] [place] [address] Dr. Yesenia Ruffin Color (U) LT. YELLOW Normal YELLOW [facility] Comment on above: Performed By: #### L ACT #### [facility] [address] [place] [address] Dr. Yesenia DIAL A micrscopic examina tion will be performed if indicated. Normal [facility] Comment on above: Performed By: #### L ACT #### [facility] [address] [place] [address] Dr. Yesenia Ruffin Glucose Ql (U) Negative Normal NEGATIVE [facility] Comment on above: Performed By: #### L ACT #### [facility] [address] [place] [address] Dr. Yesenia uRffin Hemoglobin Ql (U) Negative Normal NEGATIVE [facility] Comment on above: Performed By: #### L ACT #### [facility] [address] [place] [address] Dr. Yesenia Ruffin Ketones Ql (U) Negative Normal NEGATIVE [facility] Comment on above: Performed By: #### L ACT #### [facility] [address] [place] [address] Dr. Yesenia Ruffin LEUKOCYTES Negative Normal NEGATIVE [facility] Comment on above: Performed By: #### L ACT #### [facility] [address] [place] [address] Dr. Yesenia Ruffin Nitrite Ql (U) Negative Normal NEGATIVE [facility] Comment on above: Performed By: #### L ACT #### [facility] [address] [place] [address] Dr. Yesenia Ruffin pH (U) 6.5 [pH] Normal 5-9 [facility] Comment on above: Performed By: #### L ACT #### [facility] [address] [place] [address] Dr. Yesenia Ruffin SPEC GRAVITY <=1.005 Abnormal 1.005-<=1. 025 [facility] Comment on above: Performed By: #### L ACT #### [facility] [address] [place] [address] Dr. Yesenia Ruffin UA PROTEIN Negative Normal NEGATIVE/ TRACE [facility] Comment on above: Performed By: #### L ACT #### [facility] [address] [place] [address] Dr. Yesenia Ruffin UR MICRO IND NOT INDICATED Normal [facility] Comment on above: Performed By: #### L ACT #### [facility] [address] [place] [address] Dr. Yesenia Ruffin Urobilinogen Qn (U) 0.2 {Heavenly'U}/dL Normal 0.2 - 1. 0 [facility] Comment on above: Performed By: #### L ACT #### [facility] [address] [place] [address] Dr. Yesenia Ruffin LACTATE/LACTIC ACIDon 2021 Lactate [Moles/Vol] 1.4 mmol/L Normal 0.7-2.0 [facility] Comment on above: Performed By: #### L ACT #### [facility] [address] [place] [address] Dr. Yesenia Ruffin LIPASEon 06-09-2021 Lipase [Catalytic activity/Vol] 77.0 U/L Normal 23.0-300.0 [facility] Comment on above: Performed By: #### L ACT #### [facility] [address] [place] [address] Dr. Yesenia Ruffin POINT OF CARE GLUCOSEon Glucose [Mass/Vol] 129 mg/dL Critically high 74-106 [facility] Comment on above: Performed By: #### P OCGLUC #### [facility] [address] [place] [address] Dr. Yesenia Ruffin PROF 14(COMP METB)on 022 Albumin [Mass/Vol] 3.6 g/dL Normal 3.5-5.0 [facility] Comment on above: Performed By: #### L ACT #### [facility] [address] [place] [address] Dr. Yesenia Ruffin Albumin/Globulin [Mass ratio] 0.9 {ratio} Normal [facility] Comment on above: Performed By: #### L ACT #### [facility] [address] [place] [address] Dr. Yesenia Ruffin ALP [Catalytic activity/Vol] 107 U/L Normal 38-126 [facility] Comment on above: Performed By: #### L ACT #### [facility] [address] [address] [address] Yesenia Ruffin ALT [Catalytic activity/Vol] 23 U/L Normal 9-52 [facility] Comment on above: Performed By: #### L ACT #### [facility] [address] [address] [address] Yesenia Ruffin Anion gap [Moles/Vol] 11.6 mmol/L Normal [facility] Comment on above: Performed By: #### L ACT #### [facility] [address] [address] [address] Yesenia Ruffin AST [Catalytic activity/Vol] 17 U/L Normal 14-36 [facility] Comment on above: Performed By: #### L ACT #### [facility] [address] [address] [address] Yesenia Ruffin Bilirubin [Mass/Vol] 0.3 mg/dL Normal 0.2-1.3 [facility] Comment on above: Performed By: #### L ACT #### [facility] [address] [address] [address] Yesenia Ruffin Calcium [Mass/Vol] 10.5 mg/dL Critically high 8.4-10.2 [facility] Comment on above: Performed By: #### L ACT #### [facility] [address] [address] [address] Yesenia Ruffin Chloride [Moles/Vol] 94 mmol/L Critically low 98-107 [facility] Comment on above: Performed By: #### L ACT #### [facility] [address] [address] [address] Yesenia Ruffin CO2 [Moles/Vol] 33.6 mmol/L Critically high 22.0-30.0 [facility] Comment on above: Performed By: #### L ACT #### [facility] [address] [address] [address] Yesenia Ruffin Creatinine [Mass/Vol] 1.48 mg/dL Critically high 0.52-1.04 [facility] Comment on above: Performed By: #### L ACT #### [facility] [address] [address] [address] Yesenia Ruffin EGFR-AF TRINIDADIAN 44 mL/min/1.73m2 Critically low >=60 [facility] Comment on above: Performed By: #### L ACT #### [facility] [address] [address] [address] Yesenia Ruffin EGFR-NON AF TRINIDADIAN 36 mL/min/1.73m2 Critically low >=60 [facility] Comment on above: Performed By: #### L ACT #### [facility] [address] [address] [address] Yesenia Ruffin Globulin (S) [Mass/Vol] 4.0 g/dL Normal [facility] Comment on above: Performed By: #### L ACT #### [facility] [address] [address] [address] Yesenia Ruffin Glucose [Mass/Vol] 149 mg/dL Critically high 74-106 [facility] Comment on above: Performed By: #### L ACT #### [facility] [address] [address] [address] Yesenia Ruffin Potassium [Moles/Vol] 3.2 mmol/L Critically low 3.4-5.0 [facility] Comment on above: Performed By: #### L ACT #### [facility] [address] [address] [address] Yesenia Ruffin Protein [Mass/Vol] 7.6 g/dL Normal 6.1-8.2 [facility] Comment on above: Performed By: #### L ACT #### [facility] [address] [address] [address] Yesenia Ruffin Sodium [Moles/Vol] 136 mmol/L Critically low 137-145 [facility] Comment on above: Performed By: #### L ACT #### [facility] [address] [address] [address] Yesenia Ruffin Urea nitrogen [Mass/Vol] 49.0 mg/dL Critically high 7.0-17.0 [facility] Comment on above: Performed By: #### L ACT #### [facility] [address] [address] [address] Yesenia Ruffin Urea nitrogen/Creatinine [Mass ratio] 33.1 mg/mg Normal [facility] Comment on above: Performed By: #### L ACT #### [facility] [address] [address] [address] Yesenia Ruffin A1C HEMOGLOBINon 04-30-2021 HbA1c (Bld) [Mass fraction] 6.5 % [employer] Other HbA1c (Bld) [Mass fraction]o n 04-30-2021 A1C HEMOGLOBIN [employer] Other COVID Quick Testingon 2020 Result Negative [employer] Other A1C HEMOGLOBINon 01-24-2021 HbA1c (Bld) [Mass fraction] 7.4 % [employer] Other HbA1c (Bld) [Mass fraction]o n 01-24-2021 A1C HEMOGLOBIN [employer] Other [place] pelvic complete IMPORT on 08-18-2017 [place] pelvic complete IMPORT Images were obtained outside of [facility] [id number] Normal [facility] [place] transvaginal IMPORTon 08-18-2017 [place] transvaginal IMPORT Images were obtained outside of [facility] [id number] Normal [facility] [place] pelvic complete IMPORT on 06-05-2017 [place] pelvic complete IMPORT Images were obtained outside of [facility] [id number] Normal [facility] [place] pelvic complete IMPORT Images were obtained outside of [facility] [id number] Normal [facility] [place] transvaginal IMPORTon 06-05-2017 [place] transvaginal IMPORT Images were obtained outside of [facility] [id number] Normal [facility] Vital Signs Date Time Vital Sign Value Performing Clinician Facility 12-24-2023 10:51-0400 Body height 148.59 cm DO Morena Schwerer Work Phone: [facility] 12-24-2023 10:51-0400 Body mass index (BMI) [Ratio] 45.2 kg/m2 DO Morena Schwerer Work Phone: [facility] 12-24-2023 10:51-0400 Body temperature 97.7 [degF] DO Morena Schwerer Work Phone: [facility] 12-24-2023 10:51-0400 Body weight 99.96 kg DO Morena Schwerer Work Phone: [facility] 12-24-2023 10:51-0400 Diastolic blood pressure 74 mm[Hg] DO Morena Schwerer Work Phone: [facility] 12-24-2023 10:51-0400 Heart rate 83 /min DO Morena Schwerer Work Phone: [facility] 12-24-2023 10:51-0400 Inhaled oxygen flow rate 2 L/min DO Morena Schwerer Work Phone: [facility] 12-24-2023 10:51-0400 Respiratory rate 20 /min DO Morena Schwerer Work Phone: [facility] 12-24-2023 10:51-0400 SaO2% (BldA) [Mass fraction] 97 % DO Morena Schwerer Work Phone: [facility] 12-24-2023 10:51-0400 Systolic blood pressure 118 mm[Hg] DO Morena Schwerer Work Phone: [facility] 12-11-2023 11:34-0400 Body height 148.59 cm DO Morena Schwerer Work Phone: [facility] 12-11-2023 11:34-0400 Body mass index (BMI) [Ratio] 45.8 kg/m2 DO Morena Schwerer [facility] [facility] 12-11-2023 11:34-0400 Body temperature 98.8 [degF] DO Morena Schwerer Work Phone: [facility] 12-11-2023 11:34-0400 Body weight 101.17 kg DO Morena Schwerer Work Phone: [facility] 12-11-2023 11:34-0400 Diastolic blood pressure 76 mm[Hg] DO Morena Schwerer Work Phone: [facility] 12-11-2023 11:34-0400 Heart rate 91 /min DO Morena Schwerer Work Phone: [facility] 12-11-2023 11:34-0400 Inhaled oxygen flow rate 2 L/min DO Morena Schwerer Work Phone: [facility] 12-11-2023 11:34-0400 SaO2% (BldA) [Mass fraction] 96 % DO Morena Schwerer Work Phone: [facility] 12-11-2023 11:34-0400 Systolic blood pressure 122 mm[Hg] DO Morena Schwerer Work Phone: [facility] 10-30-2023 13:32-0400 Diastolic blood pressure 74 mm[Hg] DO Morena Schwerer Work Phone: [facility] 10-30-2023 13:32-0400 Heart rate 69 /min DO Morena Schwerer Work Phone: [facility] 10-30-2023 13:32-0400 Inhaled oxygen flow rate 2 L/min DO Morena Schwerer Work Phone: [facility] 10-30-2023 13:32-0400 Respiratory rate 16 /min DO Morena Schwerer Work Phone: [facility] 10-30-2023 13:32-0400 SaO2% (BldA) [Mass fraction] 96 % DO Morena Schwerer Work Phone: [facility] 10-30-2023 13:32-0400 Systolic blood pressure 125 mm[Hg] DO Morena Schwerer Work Phone: [facility] 10-30-2023 08:26-0400 Body height 172.72 cm DO Morena Schwerer Work Phone: [facility] 10-30-2023 08:26-0400 Body temperature 98.4 [degF] DO Morena Schwerer Work Phone: [facility] 10-30-2023 08:26-0400 Body weight 102 kg DO Morena Schwerer Work Phone: [phone] [place] [address] 10-22-2023 12:55-0400 Body height 147.32 cm DO Morena Schwerer Work Phone: [facility] 10-22-2023 12:55-0400 Body mass index (BMI) [Ratio] 47 kg/m2 DO Morena Schwerer Work Phone: [facility] 10-22-2023 12:55-0400 Body weight 102.05 kg DO Morena Schwerer Work Phone: [facility] 10-22-2023 12:55-0400 Diastolic blood pressure 64 mm[Hg] DO Morena Schwerer Work Phone: [facility] 10-22-2023 12:55-0400 Heart rate 98 /min DO Morena Schwerer Work Phone: [facility] 10-22-2023 12:55-0400 Inhaled oxygen flow rate 2 L/min DO Morena Schwerer Work Phone: [facility] 10-22-2023 12:55-0400 Respiratory rate 18 /min DO Morena Schwerer Work Phone: [facility] 10-22-2023 12:55-0400 SaO2% (BldA) [Mass fraction] 95 % DO Morena Schwerer Work Phone: [facility] 10-22-2023 12:55-0400 Systolic blood pressure 130 mm[Hg] DO Morena Schwerer Work Phone: [phone] [place] [address] 09-25-2023 10:26-0400 Diastolic blood pressure 90 mm[Hg] DO Morena Schwerer Work Phone: [facility] 09-25-2023 10:26-0400 Heart rate 74 /min DO Morena Schwerer Work Phone: [facility] 09-25-2023 10:26-0400 Systolic blood pressure 130 mm[Hg] DO Morena Schwerer Work Phone: [facility] 09-25-2023 09:42-0400 Body height 147.32 cm DO Morena Schwerer Work Phone: [facility] 09-25-2023 09:42-0400 Body weight 104.32 kg DO Morena Schwerer Work Phone: [facility] 09-10-2023 13:04-0400 Body height 148.59 cm DO Morena Schwerer Work Phone: [facility] 09-10-2023 13:04-0400 Body mass index (BMI) [Ratio] 46.2 kg/m2 DO Morena Schwerer Work Phone: [facility] 09-10-2023 13:04-0400 Body weight 102.05 kg DO Morena Schwerer Work Phone: [facility] 09-10-2023 13:04-0400 Diastolic blood pressure 84 mm[Hg] DO Morena Schwerer Work Phone: [facility] 09-10-2023 13:04-0400 Heart rate 84 /min DO Morena Schwerer Work Phone: [facility] 09-10-2023 13:04-0400 Inhaled oxygen flow rate 2 L/min DO Morena Schwerer Work Phone: [facility] 09-10-2023 13:04-0400 Respiratory rate 22 /min DO Morena Schwerer Work Phone: [facility] 09-10-2023 13:04-0400 SaO2% (BldA) [Mass fraction] 95 % DO Morena Schwerer Work Phone: [facility] 09-10-2023 13:04-0400 Systolic blood pressure 122 mm[Hg] DO Morean Schwerer Work Phone: [facility] 08-27-2023 09:31-0400 Body height 148.59 cm [facility] 08-27-2023 09:31-0400 Body mass index (BMI) [Ratio] 45.8 kg/m2 [facility] 08-27-2023 09:31-0400 Body temperature 98.3 [degF] [facility] 08-27-2023 09:31-0400 Body weight 101.15 kg [facility] 08-27-2023 09:31-0400 Diastolic blood pressure 84 mm[Hg] [facility] 08-27-2023 09:31-0400 Heart rate 89 /min [facility] 08-27-2023 09:31-0400 Inhaled oxygen flow rate 2 L/min [facility] 08-27-2023 09:31-0400 Respiratory rate 20 /min [facility] 08-27-2023 09:31-0400 SaO2% (BldA) [Mass fraction] 96 % [facility] 08-27-2023 09:31-0400 Systolic blood pressure 122 mm[Hg] [facility] 07-27-2023 14:45-0400 Body height 148.59 cm [facility] 07-27-2023 14:45-0400 Body mass index (BMI) [Ratio] 45.9 kg/m2 [facility] 07-27-2023 14:45-0400 Body temperature 98.1 [degF] [facility] 07-27-2023 14:45-0400 Body weight 101.37 kg [facility] 07-27-2023 14:45-0400 Diastolic blood pressure 84 mm[Hg] [facility] 07-27-2023 14:45-0400 Heart rate 96 /min [facility] 07-27-2023 14:45-0400 Inhaled oxygen flow rate 2 L/min [facility] 07-27-2023 14:45-0400 SaO2% (BldA) [Mass fraction] 97 % [facility] 07-27-2023 14:45-0400 Systolic blood pressure 138 mm[Hg] [facility] 06-12-2023 10:45-0500 Body height 148.59 cm Mayo Portillo Other [facility] [employer] Other 06-12-2023 10:45-0500 Body mass index (BMI) [Ratio] 45.4 kg/m2 Mayo Portillo Other [facility] [employer] Other 06-12-2023 10:45-0500 Body weight 100.25 kg Mayo Portillo Other [employer] Other 06-12-2023 10:45-0500 SaO2% (BldA) [Mass fraction] Mayo Portillo Other [employer] Other 05-15-2023 10:00-0500 Body height 148.59 cm Mayo Portillo Other [facility] 05-15-2023 10:00-0500 Body mass index (BMI) [Ratio] 46.22 kg/m2 Mayo Portillo Other [facility] [employer] Other 05-15-2023 10:00-0500 Body weight 102.06 kg Mayo Portillo Other [facility] [employer] Other 05-15-2023 10:00-0500 Body weight 102.05 kg [facility] 05-15-2023 10:00-0500 Diastolic blood pressure 82 mm[Hg] Mayo Portillo Other [facility] 05-15-2023 10:00-0500 SaO2% (BldA) [Mass fraction] Mayo Portillo Other [facility] [employer] Other 05-15-2023 10:00-0500 Systolic blood pressure 128 mm[Hg] Mayo Portillo Other [facility] 04-13-2023 13:30-0500 Body height 148.59 cm Morena Schwerer Other [employer] Other 04-13-2023 13:30-0500 Body mass index (BMI) [Ratio] 46.01 kg/m2 Morena Schwerer Other [employer] Other 04-13-2023 13:30-0500 Body weight 101.61 kg Morena Schwerer Other [employer] Other 04-13-2023 13:30-0500 Diastolic blood pressure 78 mm[Hg] Morena Schwerer Other [employer] Other 04-13-2023 13:30-0500 Respiratory rate 20 /min Morena Schwerer Other [employer] Other 04-13-2023 13:30-0500 SaO2% (BldA) [Mass fraction] 97 % Morena Schwerer Other [employer] Other 04-13-2023 13:30-0500 Systolic blood pressure 134 mm[Hg] Morena Schwerer Other [employer] Other 12-12-2022 09:00-0400 Body height 148.59 cm Morena Schwerer Other [employer] Other 12-12-2022 09:00-0400 Body mass index (BMI) [Ratio] 44.78 kg/m2 Morena Schwerer Other [employer] Other 12-12-2022 09:00-0400 Body weight 98.88 kg Morena Schwerer Other [employer] Other 12-12-2022 09:00-0400 Diastolic blood pressure 86 mm[Hg] Morena Schwerer Other [employer] Other 12-12-2022 09:00-0400 Respiratory rate 20 /min Morena Schwerer Other [employer] Other 12-12-2022 09:00-0400 SaO2% (BldA) [Mass fraction] 96 % Morena Schwerer Other [employer] Other 12-12-2022 09:00-0400 Systolic blood pressure 118 mm[Hg] Morena Schwerer Other [employer] Other 06-02-2022 16:00-0500 Body height 148.59 cm Morena Schwerer Other [employer] Other 06-02-2022 16:00-0500 Body mass index (BMI) [Ratio] 50.57 kg/m2 Morena Schwerer Other [employer] Other 06-02-2022 16:00-0500 Body temperature 97.9 [degF] Morena Schwerer Other [employer] Other 06-02-2022 16:00-0500 Body weight 111.68 kg Morena Schwerer Other [employer] Other 06-02-2022 16:00-0500 Diastolic blood pressure 76 mm[Hg] Morena Schwerer Other [employer] Other 06-02-2022 16:00-0500 SaO2% (BldA) [Mass fraction] Morena Schwerer Other [employer] Other 06-02-2022 16:00-0500 Systolic blood pressure 124 mm[Hg] Morena Schwerer Other [employer] Other 04-21-2022 11:15-0500 Body height 148.59 cm Jaquelin Melendrezchas Other [employer] Other 04-21-2022 11:15-0500 Body mass index (BMI) [Ratio] 49.3 kg/m2 Jaquelin Melendrezchas Other [employer] Other 04-21-2022 11:15-0500 Body temperature 97.4 [degF] Jaquelin Melendrezban Other [employer] Other 04-21-2022 11:15-0500 Body weight 108.86 kg Jaquelin Ac Other [employer] Other 04-21-2022 11:15-0500 Diastolic blood pressure 80 mm[Hg] Jaquelin Melendrezban Other [employer] Other 04-21-2022 11:15-0500 Respiratory rate 20 /min Jaquelin Ac Other [employer] Other 04-21-2022 11:15-0500 SaO2% (BldA) [Mass fraction] Jaquelin Ac Other [employer] Other 04-21-2022 11:15-0500 Systolic blood pressure 130 mm[Hg] Jaquelin Ac Other [employer] Other 02-27-2022 09:15-0400 Body height 148.59 cm Morena Quinnerer Other [employer] Other 02-27-2022 09:15-0400 Body temperature 98.8 [degF] Morena Schwerer Other [employer] Other 02-27-2022 09:15-0400 Diastolic blood pressure 78 mm[Hg] Morena Schwerer Other [employer] Other 02-27-2022 09:15-0400 SaO2% (BldA) [Mass fraction] Morena Schwerer Other [employer] Other 02-27-2022 09:15-0400 Systolic blood pressure 118 mm[Hg] Morena Schwerer Other [facility] [employer] Other 02-26-2022 15:01-0400 Inhaled oxygen flow rate 2 L/min DO Morena Schwerer Work Phone: [facility] 02-26-2022 11:13-0400 Body temperature 98.7 [degF] DO Morena Schwerer Work Phone: [facility] 02-26-2022 11:13-0400 Diastolic blood pressure 55 mm[Hg] DO Morena Schwerer Work Phone: [facility] 02-26-2022 11:13-0400 Heart rate 84 /min DO Morena Schwerer Work Phone: [facility] 02-26-2022 11:13-0400 Respiratory rate 22 /min DO Morena Schwerer Work Phone: [facility] 02-26-2022 11:13-0400 SaO2% (BldA) [Mass fraction] 96 % DO Morena Schwerer Work Phone: [facility] 02-26-2022 11:13-0400 Systolic blood pressure 133 mm[Hg] DO Morena Schwerer Work Phone: [facility] 02-25-2022 05:02-0400 Body weight 109.4 kg DO Morena Schwerer Work Phone: [facility] 02-25-2022 04:50-0400 Inhaled oxygen concentration 35 % DO Morena Schwerer Work Phone: [facility] 02-24-2022 21:35-0400 Body height 147.32 cm DO Morena Schwerer Work Phone: [facility] 02-24-2022 20:00-0400 Diastolic blood pressure 66 mm[Hg] DO Morena Schwerer Work Phone: [facility] 02-24-2022 20:00-0400 Heart rate 86 /min DO Morena Schwerer Work Phone: [facility] 02-24-2022 20:00-0400 Inhaled oxygen concentration 35 % DO Morena Schwerer Work Phone: [facility] 02-24-2022 20:00-0400 Respiratory rate 26 /min DO Morena Schwerer Work Phone: [facility] 02-24-2022 20:00-0400 SaO2% (BldA) [Mass fraction] 95 % DO Morena Schwerer Work Phone: [facility] 02-24-2022 20:00-0400 Systolic blood pressure 144 mm[Hg] DO Morena Schwerer Work Phone: [facility] 02-24-2022 16:01-0400 Body height 147.32 cm DO Morena Schwerer Work Phone: [facility] 02-24-2022 16:01-0400 Body temperature 98.7 [degF] DO Morena Schwerer Work Phone: [facility] 02-24-2022 16:01-0400 Body weight 108.86 kg DO Morena Schwerer Work Phone: [facility] 02-24-2022 10:00-0400 Body height 148.59 cm Morena Schwerer Other [employer] Other 02-24-2022 10:00-0400 Body mass index (BMI) [Ratio] 49.65 kg/m2 Morena Schwerer Other [employer] Other 02-24-2022 10:00-0400 Body weight 109.64 kg Morena Schwerer Other [employer] Other 02-24-2022 10:00-0400 Diastolic blood pressure 80 mm[Hg] Morena Schwerer Other [employer] Other 02-24-2022 10:00-0400 SaO2% (BldA) [Mass fraction] 97 % Morena Schwerer Other [employer] Other 02-24-2022 10:00-0400 Systolic blood pressure 132 mm[Hg] Morena Schwerer Other [facility] [employer] Other 02-06-2022 14:21-0400 Heart rate 82 /min DO Morena Schwerer Work Phone: [facility] 02-06-2022 14:21-0400 Respiratory rate 20 /min DO Morena Schwerer Work Phone: [facility] 02-06-2022 14:21-0400 SaO2% (BldA) [Mass fraction] 96 % DO Morena Schwerer Work Phone: [facility] 02-06-2022 14:05-0400 Diastolic blood pressure 92 mm[Hg] DO Morena Schwerer Work Phone: [facility] 02-06-2022 14:05-0400 Inhaled oxygen concentration 40 % DO Morena Schwerer Work Phone: [facility] 02-06-2022 14:05-0400 Systolic blood pressure 164 mm[Hg] DO Morena Schwerer Work Phone: [facility] 02-06-2022 12:39-0400 Body height 149.86 cm DO Morena Schwerer Work Phone: [facility] 02-06-2022 12:39-0400 Body weight 108.5 kg DO Morena Bravo Work Phone: [facility] 02-06-2022 12:38-0400 Body temperature 97.1 [degF] DO Morena Bravo Work Phone: [facility] 12-31-2021 16:15-0400 Body height 148.59 cm Jaquelin Melendrezchas Other [employer] Other 12-31-2021 16:15-0400 Body mass index (BMI) [Ratio] 46.63 kg/m2 Ramanrahul Ac Other [employer] Other 12-31-2021 16:15-0400 Body temperature 98.4 [degF] Jaquelin Ac Other [employer] Other 12-31-2021 16:15-0400 Body weight 102.97 kg Jaquelin Melendrezchas Other [employer] Other 12-31-2021 16:15-0400 Diastolic blood pressure 90 mm[Hg] Jaquelin Ac Other [employer] Other 12-31-2021 16:15-0400 Respiratory rate 20 /min Jaquelin Yashira Other [employer] Other 12-31-2021 16:15-0400 SaO2% (BldA) [Mass fraction] 92 % Jaquelin Ac Other [employer] Other 12-31-2021 16:15-0400 Systolic blood pressure 136 mm[Hg] Jaquelin Ac Other [employer] Other 11-22-2021 10:45-0400 Body height 148.59 cm Morena Schwerer Other [employer] Other 11-22-2021 10:45-0400 Body mass index (BMI) [Ratio] 44.37 kg/m2 Morena Schwerer Other [employer] Other 11-22-2021 10:45-0400 Body temperature 98.3 [degF] Morena Schwerer Other [employer] Other 11-22-2021 10:45-0400 Body weight 97.98 kg Morena Schwerer Other [employer] Other 11-22-2021 10:45-0400 Diastolic blood pressure 84 mm[Hg] Morena Schwerer Other [employer] Other 11-22-2021 10:45-0400 SaO2% (BldA) [Mass fraction] 92 % Morena Schwerer Other [employer] Other 11-22-2021 10:45-0400 Systolic blood pressure 142 mm[Hg] Morena Schwerer Other [employer] Other 07-29-2021 10:30-0400 Body height 148.59 cm Morena Schwerer Other [employer] Other 07-29-2021 10:30-0400 Body mass index (BMI) [Ratio] 41.04 kg/m2 Morena Schwerer Other [employer] Other 07-29-2021 10:30-0400 Body temperature 98.9 [degF] Morena Schwerer Other [employer] Other 07-29-2021 10:30-0400 Body weight 90.63 kg Morena Schwerer Other [employer] Other 07-29-2021 10:30-0400 Diastolic blood pressure 86 mm[Hg] Morena Schwerer Other [employer] Other 07-29-2021 10:30-0400 SaO2% (BldA) [Mass fraction] 94 % Morena Schwerer Other [employer] Other 07-29-2021 10:30-0400 Systolic blood pressure 128 mm[Hg] Morena Schwerer Other [employer] Other 06-24-2021 09:00-0500 Body height 148.59 cm Morena Schwerer Other [employer] Other 06-24-2021 09:00-0500 Body mass index (BMI) [Ratio] 41.54 kg/m2 Morena Schwerer Other [employer] Other 06-24-2021 09:00-0500 Body temperature 97.9 [degF] Morena Schwerer Other [employer] Other 06-24-2021 09:00-0500 Body weight 91.72 kg Morena Schwerer Other [employer] Other 06-24-2021 09:00-0500 Diastolic blood pressure 82 mm[Hg] Morena Schwerer Other [employer] Other 06-24-2021 09:00-0500 SaO2% (BldA) [Mass fraction] 94 % Morena Schwerer Other [employer] Other 06-24-2021 09:00-0500 Systolic blood pressure 130 mm[Hg] Morena Schwerer Other [employer] Other 06-19-2021 15:15-0500 Body height 148.59 cm Vipul Jimenez Other [employer] Other 06-19-2021 15:15-0500 Body mass index (BMI) [Ratio] 42.52 kg/m2 Vipul Jimenez Other [employer] Other 06-19-2021 15:15-0500 Body weight 93.9 kg Vipul Jimenez Other [employer] Other 04-30-2021 14:30-0500 Body height 148.59 cm Morena Schwerer Other [employer] Other 04-30-2021 14:30-0500 Body mass index (BMI) [Ratio] 42.85 kg/m2 Morena Schwerer Other [employer] Other 04-30-2021 14:30-0500 Body temperature 98.4 [degF] Morena Schwerer Other [employer] Other 04-30-2021 14:30-0500 Body weight 94.62 kg Morena Schwerer Other [employer] Other 04-30-2021 14:30-0500 Diastolic blood pressure 88 mm[Hg] Morena Schwerer Other [employer] Other 04-30-2021 14:30-0500 SaO2% (BldA) [Mass fraction] 96 % Morena Schwerer Other [employer] Other 04-30-2021 14:30-0500 Systolic blood pressure 128 mm[Hg] Morena Schwerer Other [employer] Other 03-22-2021 11:00-0500 Body height 148.59 cm Radha Ginty Other [employer] Other 03-22-2021 11:00-0500 Body mass index (BMI) [Ratio] 36.98 kg/m2 Radha Ginty Other [employer] Other 03-22-2021 11:00-0500 Body temperature 98.1 [degF] Radha Ginty Other [employer] Other 03-22-2021 11:00-0500 Body weight 81.65 kg Radha Ginty Other [employer] Other 03-22-2021 11:00-0500 Respiratory rate 20 /min Radha Ginty Other [employer] Other 03-22-2021 11:00-0500 SaO2% (BldA) [Mass fraction] 99 % Radha Ginty Other [employer] Other 01-24-2021 10:15-0400 Body height 148.59 cm Morena Quinnerer Other [employer] Other 01-24-2021 10:15-0400 Body mass index (BMI) [Ratio] 43.8 kg/m2 Morena Schwerer Other [employer] Other 01-24-2021 10:15-0400 Body weight 96.71 kg Morena Schwerer Other [employer] Other 01-24-2021 10:15-0400 Diastolic blood pressure 72 mm[Hg] Morena Schwerer Other [employer] Other 01-24-2021 10:15-0400 Respiratory rate 18 /min Morena Schwerer Other [employer] Other 01-24-2021 10:15-0400 SaO2% (BldA) [Mass fraction] 97 % Morena Schwerer Other [employer] Other 01-24-2021 10:15-0400 Systolic blood pressure 128 mm[Hg] Morena Schwerer Other [employer] Other Encounters Encounter Date Encounter Type Care Provider Facility Start: 12-24-2023 End: 12-24-2023 ambulatory DO Morena E Schwerer Work Phone: [facility] Work Phone: Start: 12-24-2023 End: 12-24-2023 Patient encounter procedure DO Morena Schwerer Work Phone: [facility] Work Phone: Start: 12-11-2023 End: 12-11-2023 ambulatory DO Morena E Schwerer Work Phone: [facility] Work Phone: Start: 12-11-2023 End: 12-11-2023 Patient encounter procedure DO Morena Schwerer Work Phone: [facility] Work Phone: Start: 11-10-2023 Non-patient / Non-visit DO Jensen tlin Schwerer Work Phone: [facility] Work Phone: Start: 11-09-2023 End: 11-09-2023 Patient encounter procedure DO Morena Schwerer Work Phone: [facility] Work Phone: Start: 11-09-2023 End: 11-09-2023 ambulatory DO Morena E Schwerer Work Phone: [facility] Work Phone: Start: 10-30-2023 Non-patient / Non-visit DO Jensen tlin Schwerer Work Phone: [facility] Work Phone: Start: 10-30-2023 End: 10-30-2023 Admission to same day surgery center DO Morena Schwerer Work Phone: [facility] Work Phone: Start: 10-30-2023 End: 10-30-2023 ambulatory DO Morena E Schwerer Work Phone: [facility] Work Phone: Start: 10-28-2023 End: 10-28-2023 Patient encounter procedure DO Morena Schwerer Work Phone: [facility] Work Phone: Start: 10-28-2023 End: 10-28-2023 ambulatory DO Morena E Schwerer Work Phone: [facility] Work Phone: Start: 10-28-2023 Encounter for preprocedural laboratory examination Sanya Valadez [facility] Start: 10-22-2023 End: 10-22-2023 ambulatory DO Morena E Schwerer Work Phone: [facility] Work Phone: Start: 10-22-2023 End: 10-22-2023 Patient encounter procedure DO Morena Schwerer Work Phone: [facility] Work Phone: Start: 09-25-2023 Non-patient / Non-visit DO Jensen tlin Schwerer Work Phone: [facility] Work Phone: Start: 09-25-2023 End: 09-25-2023 Patient encounter procedure DO Morena Schwerer Work Phone: [facility]Electro[facility] Work Phone: Start: 09-25-2023 End: 09-25-2023 ambulatory DO Morena E Schwerer Work Phone: [facility] Work Phone: Start: 09-24-2023 End: 09-24-2023 ambulatory DO Morena E Schwerer Work Phone: [facility] Work Phone: Start: 09-24-2023 End: 09-24-2023 Patient encounter procedure DO Morena Schwerer Work Phone: [facility] [address] Work Phone: Start: 09-10-2023 End: 09-10-2023 ambulatory DO Morena E Schwerer Work Phone: [facility] Work Phone: Start: 09-10-2023 End: 09-10-2023 Patient encounter procedure DO Morena Schwerer Work Phone: [facility] Work Phone: Start: 09-04-2023 Non-patient / Non-visit DO Jensen tlin Schwerer Work Phone: [facility] Work Phone: Start: 09-04-2023 End: 09-04-2023 Patient encounter procedure DO Morena Schwerer Work Phone: [facility] Work Phone: Start: 09-04-2023 End: 09-04-2023 ambulatory DO Morena E Schwerer Work Phone: [facility] Work Phone: Start: 08-27-2023 End: 08-27-2023 Patient encounter procedure DO Morena Schwerer Work Phone: [facility] Start: 08-27-2023 End: 08-27-2023 ambulatory DO Morena E Schwerer Work Phone: [facility] Work Phone: Start: 08-27-2023 End: 08-27-2023 ambulatory [facility] Work Phone: Start: 08-27-2023 End: 08-27-2023 Patient encounter procedure [facility] Pulmonary Disease Work Phone: Start: 07-27-2023 End: 07-27-2023 ambulatory [facility] Work Phone: Start: 07-27-2023 End: 07-27-2023 Patient encounter procedure [facility] Work Phone: Start: 07-21-2023 Non-patient / Non-visit [facility] Work Phone: Start: 06-18-2023 Non-patient / Non-visit [facility] Work Phone: Start: 06-12-2023 End: 06-12-2023 ambulatory Mayo Portillo Other [employer] Other Start: 06-12-2023 Office outpatient vi sit 15 minutes Mayolisy Portillo [facility] [place] Start: 05-26-2023 (PROC) PROCEDURE Mayolisy Portillo [facility] Start: 05-26-2023 End: 05-26-2023 ambulatory Mayo Portillo Other [employer] [facility] [employer] Other Start: 05-26-2023 Non-patient / Non-visit [facility] Work Phone: Start: 05-21-2023 End: 05-21-2023 ambulatory Morena Schwerer Other [employer] Other Start: 05-21-2023 Telephone encounter Morena Schwerer [facility] Start: 05-15-2023 End: 05-15-2023 ambulatory Mayo Portillo Other [employer] Other Start: 05-15-2023 Office consultation new/estab patient 60 min Mayo Jeff [facility] [place] Start: 05-15-2023 End: 05-15-2023 Patient encounter procedure [facility] [place] Work Phone: Start: 04-13-2023 End: 04-13-2023 ambulatory Morena Schwerer Other [employer] Other Start: 04-13-2023 Office outpatient vi sit 25 minutes Morena Schwerer [facility] [place] Start: 04-07-2023 End: 04-07-2023 Patient encounter procedure DO Morena Schwerer Work Phone: [facility] [place] Work Phone: Start: 04-07-2023 End: 04-07-2023 ambulatory DO Morena E Schwerer Work Phone: [facility] Work Phone: Start: 01-30-2023 End: 01-30-2023 ambulatory Kamal Chaban Other [employer] Other Start: 01-30-2023 Telephone encounter Kamal Chaban [facility] Start: 12-12-2022 Office outpatient vi sit 25 minutes Morena Schwerer [facility] Start: 12-12-2022 Telephone encounter Morena Schwerer [facility] Start: 12-12-2022 End: 12-12-2022 ambulatory Morena E Schwerer [facility] [employer] Other Start: 09-02-2022 End: 09-02-2022 ambulatory DO Morena E Schwerer Work Phone: [facility] Work Phone: Start: 09-02-2022 End: 09-02-2022 Patient encounter procedure DO Morena Schwerer Work Phone: [facility] Work Phone: Start: 07-28-2022 End: 07-28-2022 ambulatory Morena Schwerer Other [employer] Other Start: 07-28-2022 Telephone encounter Morena Schwerer [facility] [place] Start: 06-02-2022 End: 06-02-2022 ambulatory Morena Schwerer Other [employer] Other Start: 06-02-2022 Office outpatient vi sit 25 minutes Morena Schwerer [facility] [place] Start: 05-23-2022 End: 05-23-2022 ambulatory Morena Schwerer Other [employer] Other Start: 05-23-2022 Telephone encounter Morena Schwerer [facility] Start: 04-21-2022 End: 04-21-2022 ambulatory Kamal Chaban Other [employer] Other Start: 04-21-2022 Office outpatient vi sit 25 minutes Kamal Chaban [facility] Start: 04-17-2022 End: 04-17-2022 ambulatory DO Morena E Schwerer Work Phone: [facility] Work Phone: Start: 04-17-2022 End: 04-17-2022 Patient encounter procedure DO Morena Schwerer Work Phone: [facility]-Sleep Lab Start: 04-09-2022 End: 04-09-2022 ambulatory DO Morena E Schwerer Work Phone: [facility] Work Phone: Start: 04-09-2022 End: 04-09-2022 Patient encounter procedure DO Morena Schwerer Work Phone: [facility]-Sleep Lab Start: 03-25-2022 End: 03-25-2022 ambulatory DO Morena E Schwerer Work Phone: [facility] Work Phone: Start: 03-25-2022 End: 03-25-2022 Patient encounter procedure DO Morena Schwerer Work Phone: [facility]-CT Scan [place] Start: 03-18-2022 Telephone encounter Morena Schwerer [facility] Start: 03-18-2022 End: 03-18-[address] SCHMITT [facility] [employer] Other Start: 03-10-2022 End: 03-10-2022 ambulatory Morena Schwerer Other [employer] Other Start: 03-10-2022 Telephone encounter Morena Schwerer [facility] [place] Start: 03-07-2022 End: 03-07-2022 ambulatory Morena Schwerer Other [employer] Other Start: 03-07-2022 Telephone encounter Morena Schwerer [facility] [place] Start: 03-03-2022 End: 03-03-2022 ambulatory Morena Schwerer Other [employer] Other Start: 03-03-2022 Telephone encounter Morena Schwerer [facility] [place] Start: 02-27-2022 End: 02-27-2022 ambulatory Morena Schwerer Other [employer] Other Start: 02-27-2022 Office outpatient vi sit 25 minutes Morena Schwerer [facility] Family [facility] [place] Start: 02-27-2022 Telephone encounter Morena Schwerer [facility] [place] Start: 02-24-2022 End: 02-26-2022 Evaluation and management of inpatient DO Morena Schwerer Work Phone: [facility] [place] [facility] Start: 02-24-2022 End: 02-24-2022 ambulatory Morena Schwerer Other [employer] Other Start: 02-24-2022 Office outpatient vi sit 40 minutes Morena Schwerer [facility] [place] Start: 02-17-2022 End: 02-17-2022 ambulatory DO Morena E Schwerer Work Phone: [facility] Work Phone: Start: 02-17-2022 End: 02-17-2022 Discharged Recurring DO Morena Schwerer Work Phone: [facility]-Physical Therapy [address] Start: 02-17-2022 Registered Recurring DO Loreeli n Schwerer Work Phone: [facility]-Physical Therapy [address] Start: 02-07-2022 End: 02-07-2022 ambulatory Morena Schwerer Other [employer] Other Start: 02-07-2022 Telephone encounter Morena Schwerer [facility] Start: 02-06-2022 End: 02-06-2022 Emergency department patient visit DO Morena Quinnerer Work Phone: [facility]-Emergency Room Start: 02-06-2022 Registered Recurring DO Ken n Schwerer Work Phone: [facility]-Physical Therapy [address] Start: 01-28-2022 End: 01-28-2022 ambulatory Morena Schwerer Other [employer] Other Start: 01-28-2022 Telephone encounter Morena Schwerer [facility] [place] Start: 01-14-2022 End: 01-14-2022 ambulatory Clara Angie Other [employer] Other Start: 01-14-2022 Telephone encounter Clara Angie [facility] Start: 12-31-2021 End: 12-31-2021 ambulatory Kamal Chaban Other [employer] Other Start: 12-31-2021 Office outpatient vi sit 40 minutes Kamal Chaban [facility] Start: 12-12-2021 End: 12-12-2021 ambulatory Morena Schwerer Other [employer] Other Start: 12-12-2021 Telephone encounter Morena Schwerer [facility] Start: 12-12-2021 End: 12-12-2021 Patient encounter procedure DO Morena Schwerer Work Phone: [facility]-Lab [facility] Start: 12-03-2021 End: 12-03-2021 ambulatory Morena Schwerer Other [employer] Other Start: 12-03-2021 Telephone encounter Morena Schwerer [facility] Start: 11-22-2021 End: 11-22-2021 ambulatory Morena Schwerer Other [employer] Other Start: 11-22-2021 Office outpatient vi sit 25 minutes Morena Schwerer [facility] Start: 11-22-2021 End: 11-22-2021 Patient encounter procedure DO Morena Schwerer Work Phone: [facility]-X-Ray [facility] Start: 10-01-2021 End: 10-01-2021 ambulatory Morena Schwerer Other [employer] Other Start: 10-01-2021 Telephone encounter Morena Schwerer [facility] Start: 09-03-2021 End: 09-03-2021 ambulatory Morena Schwerer Other [employer] Other Start: 09-03-2021 Telephone encounter Morena Schwerer [facility] Start: 08-02-2021 End: 08-02-2021 ambulatory Morena Schwerer Other [employer] Other Start: 08-02-2021 Telephone encounter Morena Schwerer [facility] [place] Start: 07-29-2021 End: 07-29-2021 ambulatory Morena Schwerer Other [employer] Other Start: 07-29-2021 Office outpatient vi sit 15 minutes Morena Schwerer [facility] [place] Start: 07-04-2021 End: 07-04-2021 ambulatory Morena Schwerer Other [employer] Other Start: 07-04-2021 Telephone encounter Morena Schwerer [facility] [place] Start: 06-24-2021 End: 06-24-2021 ambulatory Morena Schwerer Other [employer] Other Start: 06-24-2021 Office outpatient vi sit 25 minutes Morena Schwerer [facility] [place] Start: 06-19-2021 End: 06-19-2021 ambulatory Vipul Tony Other [employer] Other Start: 06-19-2021 Office outpatient vi sit 25 minutes Vipul Jimenez [facility] Gastroenterology Start: 06-17-2021 End: 06-17-2021 ambulatory Morena Schwerer Other [employer] Other Start: 06-17-2021 Telephone encounter Morena Schwerer [facility] [place] Start: 06-12-2021 End: 06-12-2021 ambulatory Vipul Jimenez Other [employer] Other Start: 06-12-2021 Telephone encounter Morena Schwerer [facility] [place] Start: 06-11-2021 End: 06-11-2021 ambulatory Vipul Jimenez Other [employer] Other Start: 06-11-2021 Telephone encounter Vipul Hylaura [facility] Start: 06-10-2021 End: 06-10-2021 ambulatory Morena Schwerer Other [employer] Other Start: 06-10-2021 Telephone encounter Morena Schwerer [facility] [place] Start: 06-09-2021 End: 06-11-[address] DOCTOR CASTRO Facility:[facility] Start: 05-08-2021 End: 05-08-2021 ambulatory Morena Schwerer Other [employer] Other Start: 05-08-2021 Telephone encounter Morena Schwerer [facility] [place] Start: 04-30-2021 End: 04-30-2021 ambulatory Morena Schwerer Other [employer] Other Start: 04-30-2021 Office outpatient vi sit 25 minutes Morena Schwerer [facility] [place] Start: 04-23-2021 End: 04-23-2021 ambulatory Vipul Jimenez Other [employer] Other Start: 04-23-2021 Telephone encounter Vipul Jimenez [facility] Start: 04-22-2021 End: 04-22-2021 ambulatory Morena Schwerer Other [employer] Other Start: 04-22-2021 Telephone encounter Morena Schwerer [facility] [place] Start: 04-17-2021 End: 04-17-2021 ambulatory Vipul Jimenez Other [employer] Other Start: 04-17-2021 Telephone encounter Vipul Jimenez [facility] Start: 03-22-2021 End: 03-22-2021 ambulatory Radha Markham Other [employer] Other Start: 03-22-2021 Office outpatient vi sit 15 minutes Radha Markham [facility] [address] Start: 02-14-2021 End: 02-14-2021 ambulatory Vipul Jimenez Other [employer] Other Start: 02-14-2021 Telephone encounter Vipul Jimenez [facility] Gastroenterology Start: 01-31-2021 Telephone encounter Morena Bravo [facility] Family [facility] [place] Start: 01-24-2021 Office outpatient vi sit 25 minutes Morena Schwerer [facility] [place] Procedures Date Procedure Procedure Detail Performing Clinician Start: 10-30-2023 CL LHC & COR Angio DO K aitlin Schwerer Work Phone: Start: 09-25-2023 Radionuclide myocard ial perfusion stress study DO Morena Schwerer Work Phone: Start: 09-24-2023 CT of lungs DO Morena Schwerer Work Phone: Start: 04-07-2023 MR lumbar spine wo con DO Morena Schwerer Work Phone: Start: 04-07-2023 XR pre/post mri xray DO Morena Schwerer Work Phone: Start: 09-02-2022 Screening mammograph y of bilateral breasts DO Morena Schwerer Work Phone: Start: 03-25-2022 CT of thorax with contrast DO Morena Schwerer Work Phone: Start: 02-24-2022 Plain chest X-ray DO Ka itlin Schwerer Work Phone: Start: 02-06-2022 Plain chest X-ray DO Ka itlin Schwerer Work Phone: Start: 11-22-2021 X-ray of lumbar spin e, six views including bending views DO Morena Schwerer Work Phone: Respiratory Panel (PCR) DO K aitlin Schwerer Work Phone: SARS-CoV-2, Influenz a & RSV (PCR) DO Morena Bravo Work Phone: Plan of Treatment Date Care Activity Detail Author Start: 10-30-2023 [facility] Start: 10-22-2023 Patient referral [facility] Work Phone: Start: 09-25-2023 Radionuclide myocard ial perfusion stress study NM darci perf SPECT rest & str [facility] Start: 09-25-2023 SPECT Heart perfusio n at rest and W stress and W radionuclide IV [facility] Start: 09-10-2023 [facility] Start: 09-03-2023 Patient referral [facility] Work Phone: Start: 03-01-2022 Blood chemistry [facility] Start: 03-01-2022 Magnesium measurement F [facility] Start: 03-01-2022 [facility] Start: 02-28-2022 Blood chemistry [facility] Start: 02-28-2022 Magnesium measurement F [facility] Start: 02-28-2022 [facility] Start: 02-27-2022 Blood chemistry [facility] Start: 02-27-2022 Magnesium measurement F [facility] Start: 02-27-2022 [facility] Start: 02-26-2022 Blood chemistry [facility] Start: 02-26-2022 Magnesium measurement F [facility] Start: 02-26-2022 End: 02-26-2022 [facility] Start: 02-25-2022 Blood chemistry [facility] Start: 02-25-2022 Magnesium measurement F [facility] Start: 02-25-2022 [facility] Start: 02-25-2022 [facility] Start: 02-24-2022 Hospital admission [facility] Start: 02-24-2022 [facility] Start: 01-02-2022 Registered Recurring Registered Recu rring [facility]-Physical Therapy [facility] Comprehensive metabo lic 2000 panel - Serum or Plasma [facility] CT Unspecified body region [facility] MG Breast - bilatera l Screening [facility] Patient Education [facility] Work Phone: Patient referral [facility] Work Phone: [facility] Immunizations Immunization Date Immunization Notes Care Provider Fa cility 05-14-2023 COVID-19 (MODERNA) 12Y and older DO Morena Schwerer Work Phone: [facility] 03-09-2023 Flu Shot - Documentation Purposes Only Morena Schwerer Other [facility] 02-28-2022 influenza, seasonal, injectable Morena Schwerer Other [facility] 06-13-2021 influenza, injectabl e, quadrivalent, preservative free DO Morena Schwerer Work Phone: [facility] 06-13-2021 influenza, seasonal, injectable Morena Schwerer Other [facility] 04-18-2021 COVID-19 Vaccine Moderna - Documentation Purposes Only Morena Schwerer Other [facility] 08-31-2020 COVID-19 mRNA-1273 (Moderna) DO Morena Schwerer Work Phone: [facility] 07-31-2020 COVID-19 Vaccine Moderna - Documentation Purposes Only Morena Schwerer Other [facility] 07-03-2020 COVID-19 Vaccine Moderna - Documentation Purposes Only Morena Schwerer Other [facility] 02-12-2020 zoster vaccine recombinant Morena Schwerer Other [facility] 09-19-2019 pneumococcal polysaccharide vaccine, 23 valent Morena Schwerer Other [facility] 09-19-2019 zoster vaccine recombinant Morena Bravo Other [facility] 07-18-2019 Kenalog -40 mg Morena Louis rer Other [facility] [employer] Other 10-04-2018 tetanus toxoid, redu [place] diphtheria toxoid, and acellular pertussis vaccine, adsorbed DO Morena rBavo Work Phone: [facility] 05-04-2018 pneumococcal polysaccharide vaccine, 23 valent Morena Bravo Other [facility] Payers Date Payer Category Payer Medicare [id number] 2022 Private Health Insurance [id number] 2022 Self-pay [id number] 2022 Unknown [id number] 1965 Unknown [id number] 1965 Unknown [id number] 1961 Medicare [id number] Medicare [id number] Medicare [id number] Private Health Insurance [employer] [facility] [id number] Private Health Insurance [employer] Insurance [employer] [id number] Unknown Regular Auto/Liability [id number] Unknown HCAP/HFA/FAP Active [id number] Unknown [id number] 531 Unknown [id number]. 531 Unknown [id number]. 531 Unknown [id number]. 531 Unknown [id number]. 531 Unknown [id number]. 531 Unknown [id number]. 531 Unknown [id number] 531 Unknown [id number]. 531 Social History Date Type Detail Facility Sex Assigned At [facility] [employer] Other Start: 06-13-2021 End: 02-06-2022 Tobacco smoking status RUST Smoker (finding) [facility] Start: 1965 Sex Assigned At Female F [facility] Start: 02-24-2022 End: 10-30-2023 Tobacco smoking status RUST Ex-smoker (finding) [facility] Start: 12-24-2023 Tobacco smoking stat us RUST Current some day smoker [facility] Medical Equipment Procedure Code Equipment Code Equipment Origin al Text Equipment Identifier Dates Start: 11-23-2020 Blood Sugar Diagnostic (Blood Glucose Test) strip Start: 08-20-2023 Blood Sugar Diagnostic (Blood Glucose Test) strip Start: 08-20-2023 Blood Sugar Diagnostic (Blood Glucose Test) strip Start: 08-20-2023 Blood Sugar Diagnostic (Blood Glucose Test) strip Start: 08-20-2023 Blood Sugar Diagnostic (Blood Glucose Test) strip Start: 08-20-2023 Blood Sugar Diagnostic (Blood Glucose Test) strip Start: 08-20-2023 Blood Sugar Diagnostic (Blood Glucose Test) strip Start: 08-20-2023 Blood Sugar Diagnostic (Blood Glucose Test) strip Start: 08-20-2023 Blood Sugar Diagnostic (Blood Glucose Test) strip Start: 08-20-2023 Blood Sugar Diagnostic (Blood Glucose Test) strip Start: 08-20-2023 Blood Sugar Diagnostic (Blood Glucose Test) strip Start: 08-20-2023 Blood Sugar Diagnostic (Blood Glucose Test) strip Start: 08-20-2023 Blood Sugar Diagnostic (Blood Glucose Test) strip Start: 08-20-2023 Goals Date Patient Goal Desired Activity /State Functional Status Date Assessment Result Facility 02-26-2022 Functional status Patient at Baseline [facility] Work Phone: Mental Status Date Assessment Result Facility 02-26-2022 Cognitive function Cognitive Sta tus Patient at Baseline [facility] Work Phone: Clinical Notes 01-24-2021 to 10-30-2023 Note Date & Type Note Facility 10-30-2023 Procedure note [facility] 09-25-2023 Procedure note [facility] 06-12-2023 Evaluation note Encounter Date Diagnosis Assessment Notes Jun, Chronic pain (ICD-10 - G89.29) Follow up as needed Jun, Lumbar radiculopathy (ICD-10 - M54.16) 57 year old female here for follow up status post bilateral L4 transforaminal epidural steroid injection under fluoroscopic guidance. Patient reports 70-80% pain relief as well as improved walking, standing and daily functions following procedure. She voices complaints of residual low back pain with intermittent radiation to bilateral lower extremities to the knees which is aggravated with increased activity. She also voices complaints of right knee pain. She notes prior cortisone injections. Overall she is doing well, she feels her pain is manageable. She can continue her activities as tolerated and call the office should her pain become bothersome. Jun, Lumbar degenerative disc disease (ICD-10 - M51.36) Stable, follow up as needed Jun, Sacroiliitis (ICD-10 - M46.1) Consider SI joint injections in the future if needed Jun, Lumbosacral spondylosis (ICD-10 - M47.817) Consider lumbar facet medial branch nerve blocks in the future if needed [employer] Other 01-12-2024 Evaluation note* Encounter Date Diagnosis Assessment Notes Treatment Notes Treatment Clinical Notes May, Chronic pain (ICD-10 - G89.29) Proceed with treatment plan. May, Lumbar radiculopathy (ICD-10 - M54.16) 57 year old female presents with complaints of low back pain with radiation into bilateral hips. She also reports numbness/tingling in the bilateral lower extremities. She states pain has been present for a few years, worse in the last 8 months. Prior to examining the patient I reviewed recent progress notes from the referring provider, Dr. Bravo. I independently reviewed her recent lumbar spine MRI which shows disc bulging at L4-5 and L5-S1 with moderate spinal canal narrowing at L4-5 along with facet arthropathy. History, physical examination and available images are consistent with lumbar degenerative disc disease, lumbar radiculopathy, sacroiliitis and lumbosacral spondylosis. Anatomy of spine discussed in detail with patient in regards to patients condition. Discussed with patient different treatment options, patient is a candidate for a bilateral L4 transforaminal epidural steroid injection. Risks and benefits of procedure explained to patient; patient verbalizes understanding. May, Lumbar degenerative disc disease (ICD-10 - M51.36) Stable, follow up after procedure May, Sacroiliitis (ICD-10 - M46.1) Consider SI joint injections in the future if needed May, Lumbosacral spondylosis (ICD-10 - M47.817) Consider lumbar facet medial branch nerve blocks in the future if needed May, Other Medical deci grabiel making shows a new problem to me with further workup planned or suggested with the potential for extensive treatment options that were considered with the most applicable given this patient's situation as noted above. Treatment options considered include a combination of physical therapy approaches, pharmacologic management, and interventional procedures. Those most applicable to the patient were discussed at this time. Risk of complications and/or morbidity and mortality is high given that acute and chronic pain poses a threat to life and bodily function if undertreated, poorly treated or with failure to maintain adequate treatment and timely followup. Given the serious and fluctuating nature of pain with extensive consideration for whenever pain changes, there always remains the possibility of prolonged functional impairment requiring constant patient reassessment and high-level medical decision making. The amount and complexity of data reviewed is high given that patient labs, radiology reports, and other test were obtained, reviewed and summarized as applicable from the physician portal and/or outside medical records. Pertinent positive and negative findings were considered in medical decision-making. [employer] Other 12-11-2023 Evaluation note* Encounter Date Diagnosis Assessment Notes Treatment Notes Treatment Clinical Notes Apr, Type 2 diabetes mellitus without complication, without long-term current use of insulin (ICD-10 - E11.9) well controlled. will stay as is. is having nausea from the ozempic she reports it is managable. Apr, Chronic respiratory failure with hypoxia (ICD-10 - J96.11) continues to follow with pulm. Apr, Lumbar radiculopathy (ICD-10 - M54.16) will get her set up with PM. significant LBP with radiculopathy. Apr, Other we discussed colonoscopy-does not want anesthesia due to poor respiratory status. [employer] Other 09-29-2023 Evaluation note* Encounter Date Diagnosis Assessment Notes Treatment Notes Treatment Clinical Notes Jan, Asthma-COPD overlap syndrome (ICD-10 - J44.9) [employer] Other 08-11-2023 Evaluation note* Encounter Date Diagnosis Assessment Notes Treatment Notes Treatment Clinical Notes Dec, Asthma-COPD overlap syndrome (ICD-10 - J44.9) She reports breathing is good as long as she is not doing anything strenous. follow up with pulm 02/2023. Dec, Type 2 diabetes mellitus without complication, without long-term current use of insulin (ICD-10 - E11.9) very well controlled. continue as is. doing great with ozempic. Dec, Chronic respiratory failure with hypercapnia (ICD-10 - J96.12) Dec, Morbid (severe) obesity due to excess calories (ICD-10 - E66.01) having weight loss with ozempic, down 30 lbs Dec, Chronic GERD (ICD-10 - K21.9) Dec, Hypothyroidism (acquired) (ICD-10 - E03.9) will update labs. [employer] Other 03-27-2023 Evaluation note* Encounter Date Diagnosis Assessment Notes Treatment Notes Treatment Clinical Notes Jul, Type 2 diabetes mellitus without complication, without long-term current use of insulin (ICD-10 - E11.9) [employer] Other 01-30-2023 Evaluation note* Encounter Date Diagnosis Assessment Notes Treatment Notes Treatment Clinical Notes May, Type 2 diabetes mellitus without complication, without long-term current use of insulin (ICD-10 - E11.9) a1c is up-will start ozempic. weight is up as well. no hx of pancreatitis or thyroid CA. warned of nausea and constipation she will call with issues. May, Chronic GERD (ICD-10 - K21.9) will refill omeprazole-has been out. May, Weight gain (ICD-10 - R63.5) see above. offered weight management referral-she declined. May, Lumbago with sciatica, right side (ICD-10 - M54.41) will refill ibu [employer] Other 12-19-2022 Evaluation note* Encounter Date Diagnosis Assessment Notes Treatment Notes Treatment Clinical Notes Apr, Asthma-COPD overlap syndrome (ICD-10 - J44.9) Apr, Obstructive sleep apnea (ICD-10 - G47.33) Will initiate positive pressure therapy after reviewing her CPAP titration procedure which was done last week Apr, Chronic respiratory failure with hypercapnia (ICD-10 - J96.12) Apr, Chronic respiratory failure with hypoxia (ICD-10 - J96.11) Apr, Morbid (severe) obesity due to excess calories (ICD-10 - E66.01) Apr, Body mass index [BMI] 45.0-49.9, adult (ICD-10 - Z68.42) [employer] Other 11-15-2022 Evaluation note* Encounter Date Diagnosis Assessment Notes Treatment Notes Treatment Clinical Notes Mar, Mass of right lung (ICD-10 - R91.8) [employer] Other 11-04-2022 Evaluation note* Encounter Date Diagnosis Assessment Notes Treatment Notes Treatment Clinical Notes Mar, Type 2 diabetes mellitus without complication, without long-term current use of insulin (ICD-10 - E11.9) [employer] Other 10-27-2022 Evaluation note* Encounter Date Diagnosis Assessment Notes Treatment Notes Treatment Clinical Notes Feb, COPD exacerbation (ICD-10 - J44.1) released from hospital yesterday. doing much better than last visit. on chronic 2L. was not discharged from hospital on antibiotics. i had sent some in prior to her goign to the ER a few days ago, she has been taking these. encouraged her just to take 5 days worth of the levaquin. she agrees. Feb, Type 2 diabetes mellitus without complication, without long-term current use of insulin (ICD-10 - E11.9) needs refill of metformin has a few more days of prednisone which is elevating sugars, she will watch diet closely during this time. a1c 6.9 Feb, Asthma-COPD overlap syndrome (ICD-10 - J44.9) follow up with pulm in about 5-6 weeks. Needs script for wheelchair to [employer]. She is unable to use cane or walker due to poor respiratory status. this wheelchair is needed in and out of the home to preform ADLs. Manual wheelchair. [employer] Other 10-26-2022 Hospital Discharge instructionsAmbulatory Orders* Initiate Home Health Time Frame: 02/26/22, Location: Determined By Patient Additional Instructions Continue oxygen at Continue to monitor glucose levels as before Home health to manage: -RN/PT/OT to eval and treat -Monitor VS per protocol -Fall precautions -Perform respiratory assessments -Assist with medication management and education -[facility] Work Phone: [phone] 594-939610-24-2022 Evaluation note* Encounter Date Diagnosis Assessment Notes Treatment Notes Treatment Clinical Notes Feb, Type 2 diabetes mellitus without complication, without long-term current use of insulin (ICD-10 - E11.9) controlled Feb, COPD exacerbation (ICD-10 - J44.1) Severe exacerbation - difficulty with breathing in office today. Gave albulter neb not much improvment. Little air movement. Audable wheezing mainly with expiaratorion. She reports this has been going on since the beginning of the month when she saght care in the ER on 02/06. At that time they got her feeling better with neb tx and bipap and she wanted to go home. Today she thinks she needs a round of prednisone. I suggested she go to the ER given severe shortness of breath, unable to complete sentences, visably uncomfortable breathing. She declined. Gave her strict instructions on presenting to ER if worsening in the next day or two. She voiced understanding. She was given 40mg kenolog in office, will send in prednisone x 5 days. course of levaquin. we will increase trelegy from 100mcg to 200mcg. she follows with pulm. we will see her back in office in 3 days. If not improved at that time she is aware she will need to go to the ER. She voiced understanding. Med student Jackelin Jimenez was present for conversation. Feb, Hypothyroidism (acquired) (ICD-10 - E03.9) Feb, Asthma-COPD overlap syndrome (ICD-10 - J44.9) [employer] Other 10-07-2022 Evaluation note* Encounter Date Diagnosis Assessment Notes Treatment Notes Treatment Clinical Notes Feb, Asthma-COPD overlap syndrome (ICD-10 - J44.9) [employer] Other 09-27-2022 Evaluation note* Encounter Date Diagnosis Assessment Notes Treatment Notes Treatment Clinical Notes Jan, Type 2 diabetes mellitus without complication, without long-term current use of insulin (ICD-10 - E11.9) [employer] Other 08-30-2022 Evaluation note* Encounter Date Diagnosis Assessment Notes Treatment Notes Treatment Clinical Notes Dec, Asthma-COPD overlap syndrome (ICD-10 - J44.9) Please arrange for portable oxygen concentrator, patient needs to use oxygen continuous at 2 L Dec, Tobacco abuse (ICD-10 - Z72.0) Discussed the importance of smoking cessation at length, the severity of her COPD, progression, were discussed Dec, Sleep apnea, unspecified type (ICD-10 - G47.30) Patient has a high likelihood of severe obstructive sleep apnea in addition to asthma and COPD, the importance of work-up and treatment was discussed today at length [employer] Other 08-11-2022 Evaluation note* Encounter Date Diagnosis Assessment Notes Treatment Notes Treatment Clinical Notes Dec, Type 2 diabetes mellitus without complication, without long-term current use of insulin (ICD-10 - E11.9) Dec, Hypothyroidism (acquired) (ICD-10 - E03.9) Dec, Hyperlipemia, mixed (ICD-10 - E78.2) [employer] Other 08-02-2022 Evaluation note* Encounter Date Diagnosis Assessment Notes Treatment Notes Treatment Clinical Notes Dec, Lower extremity edema (ICD-10 - R60.0) Dec, Type 2 diabetes mellitus without complication, without long-term current use of insulin (ICD-10 - E11.9) [employer] Other 07-22-2022 Evaluation note* Encounter Date Diagnosis Assessment Notes Treatment Notes Treatment Clinical Notes Nov, Type 2 diabetes mellitus without complication, without long-term current use of insulin (ICD-10 - E11.9) a1c is good, follow in 3 months for repeat. Nov, Asthma-COPD overlap syndrome (ICD-10 - J44.9) short of breath today in office, lungs tight with mild wheezing. will place on 5 days of steroids to open up lungs. Gave samples of trelegy. she has been on in the past but unable to afford. Nov, Lumbago with sciatica, right side (ICD-10 - M54.41) we jud get xrays and go from there. Nov, Lumbago with sciatica, left side (ICD-10 - M54.42) Nov, Tobacco abuse (ICD-10 - Z72.0) due for LDCT, will order repeat. Has an appt with Dr. Ac end of the month. [employer] Other 05-03-2022 Evaluation note* Encounter Date Diagnosis Assessment Notes Treatment Notes Treatment Clinical Notes September, Type 2 diabetes mellitus without complication, without long-term current use of insulin (ICD-10 - E11.9) [employer] Other 04-01-2022 Evaluation note* Encounter Date Diagnosis Assessment Notes Treatment Notes Treatment Clinical Notes Aug, Type 2 diabetes mellitus without complication, without long-term current use of insulin (ICD-10 - E11.9) [employer] Other 03-28-2022 Evaluation note* Encounter Date Diagnosis Assessment Notes Treatment Notes Treatment Clinical Notes Jul, Type 2 diabetes mellitus without complication, without long-term current use of insulin (ICD-10 - E11.9) a1c great will recheck in 3 months, up to date with labs. Due for eye exam, i encouraged her to get established with eye doctor. Jul, Other up to date with screening measures except pap, she will work on getting back into health department for follow up. [employer] Other 02-21-2022 Evaluation note* Encounter Date Diagnosis Assessment Notes Treatment Notes Treatment Clinical Notes Jun, Type 2 diabetes mellitus without complication, without long-term current use of insulin (ICD-10 - E11.9) due for a1c at next visit. she will hold metformin for procedure and then restart in a few days. over all sugars are not horriable. Jun, GERD (gastroesophageal reflux disease) (ICD-10 - K21.9) continue ppi and antiementic from GI. Jun, Nausea (ICD-10 - R11.0) see above. has HIDA scan tomorrow. symptoms sound gallbladder related. Jun, Abdominal pain (ICD-10 - R10.9) improved. Jun, Hypertension, essential (ICD-10 - I10) controlled. Jun, Other is on bumex and metolozone. metolozone was D/[place] upon hospital discharge due to deydration which was likely caused from nausea and vomiting. She will use this as needed, she has already started back on it. continue bumex daily. [employer] Other 02-16-2022 Evaluation note* Encounter Date Diagnosis Assessment Notes Treatment Notes Treatment Clinical Notes Jun, Abdominal pain (ICD- 10 - R10.9) HIDA W/ CCK START TRIAL OF FLAGYL 500 MG BID FOR 10 DAY CONTINUE DICYCLOMINE WITHOUT CHANGE Jun, Nausea & vomiting (ICD-10 - R11.2) Jun, Gastroenteritis (ICD-10 - K52.9) [employer] Other 01-05-2022 Evaluation note* Encounter Date Diagnosis Assessment Notes Treatment Notes Treatment Clinical Notes May, Hyperlipemia, mixed (ICD-10 - E78.2) [employer] Other 12-28-2021 Evaluation note* Encounter Date Diagnosis Assessment Notes Treatment Notes Treatment Clinical Notes Apr, Type 2 diabetes mellitus without complication, without long-term current use of insulin (ICD-10 - E11.9) A1c is great we will continue Metformin. Follow in 3 months. Apr, Hepatitis C (ICD-10 - B19.20) follows with Dr. Jimenez Apr, Hypertension, essential (ICD-10 - I10) Controlled the office today. Apr, Hypothyroidism (acquired) (ICD-10 - E03.9) Up-to-date with labs. Apr, Breast cancer screening by mammogram (ICD-10 - Z12.31) Due for mammogram. She did have an abnormal one 1 year ago followed up with 6-month ultrasound. Apr, Stage 3b chronic kidney disease (CKD) (ICD-10 - N18.32) I only see 1 input of labs for her kidney function. We will recheck this may need to see nephrology depending on her GFR as she was having around 30 with last labs in February. She is no longer on NSAIDs. [employer] Other 12-20-2021 Evaluation note* Encounter Date Diagnosis Assessment Notes Treatment Notes Treatment Clinical Notes Apr, Type 2 diabetes mellitus without complication, without long-term current use of insulin (ICD-10 - E11.9) [employer] Other 12-15-2021 Evaluation note* Encounter Date Diagnosis Assessment Notes Treatment Notes Treatment Clinical Notes Apr, Hepatitis C (ICD-10 - B19.20) [employer] Other 11-19-2021 Evaluation note* Encounter Date Diagnosis Assessment Notes Treatment Notes Treatment Clinical Notes Mar, Contact with and (suspected) exposure to other viral communicable diseases (ICD-10 - Z20.828) Mar, COPD exacerbation (ICD-10 - J44.1) Advised patient that rapid COVID anitgen test today in office was negative. Discussed diagnosis with patient in detail. Physical exam consistent with COPD exacerbation. Advised patient to take medications as prescribed, reviewed side effects of steroid, take with food and plenty of water. Advised patient to use albuterol inhaler as directed as needed. Supportive care as directed, push fluids and rest, may use tylenol/motrin as needed for fever/discomfort, cool mist humidifier. Patient to follow up with PCP in 2-3 days. Immediate eval if SOB, difficulty breathing, chest pain, dizziness, or other concerning symptoms. Patient verbalizes understanding and is agreeable to treatment plan Mar, Other Additional time spent conducting pre-visit phone call, screening for symptoms, instructions on social distancing, application and removal of PPE, and cleaning of examination room, equipment and supplies was preformed. Patient education given for testing methodology and results. Patient care instructions given in writting by [facility] document [employer] Other 10-14-2021 Evaluation note* Encounter Date Diagnosis Assessment Notes Treatment Notes Treatment Clinical Notes Feb, Hepatitis C (ICD-10 - B19.20) [employer] Other 09-30-2021 Evaluation note* Encounter Date Diagnosis Assessment Notes Treatment Notes Treatment Clinical Notes Jan, Hyperlipemia, mixed (ICD-10 - E78.2) [employer] Other 09-23-2021 Evaluation note* Encounter Date Diagnosis Assessment Notes Treatment Notes Treatment Clinical Notes Jan, Hypothyroidism (acquired) (ICD-10 - E03.9) Last labs were good. Jan, Type 2 diabetes mellitus without complication, without long-term current use of insulin (ICD-10 - E11.9) A1c 7.4%. will continue current regimen For the next for the next 3 months when she returns we will recheck A1c if it still slightly elevated at that time we will start an additional medication. She has been working on weight loss and good diet. Jan, Gastroesophageal ref lux disease without esophagitis (ICD-10 - K21.9) Follows with GI a moderately well controlled. Jan, Hypertension, essent ial (ICD-10 - I10) Controlled the office today. Continue lisinopril. Jan, Hyperlipemia, mixed (ICD-10 - E78.2) Controlled with last labs. May need to bump it up at some point due to the fact that she is diabetic and LDL was 120. [facility] [employer] Other Evaluation noteNo InformationNortEdgewood Surgical Hospital [employer] Other Evaluation noteNo assessment information available [facility] Work Phone: Evaluation note* Diagnosis Onset Date Resolution Status Acute respiratory distress a cute COPD exacerbation acute Diabetes mellitus type 2 in obese acute Hypercapnic respiratory failure acute [facility] Work Phone: Evaluation note* Diagnosis Onset Date Resolution Status Diabetes mellitus type 2 in obese acute [facility] Work Phone: Evaluation note* Diagnosis Onset Date Resolution Status COPD exacerbation acute Diabetes mellitus type 2 in obese acute Hypertension acute BMI 45.0-49.9, adult acute Chest pain acute Chronic respiratory failure with hypoxia acute DM2 (diabetes mellitus, type 2) acute Encounter for screening for lung cancer acute History of cocaine abuse acu te History of methamphetamine abuse acute History of tobacco abuse acu te half-way (current) use of inhaled steroids acute Morbid obesity acute Multiple pulmonary nodules a cute Obstructive sleep apnea acut e Pleural plaque acute Severe persistent asthma, uncomplicated acute [facility] Work Phone: Evaluation note* Diagnosis Onset Date Resolution Status COPD exacerbation acute Hypertension acute Chest pain acute DM2 (diabetes mellitus, type 2) 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 acute Multiple pulmonary nodules a cute Obstructive sleep apnea acut e Pleural plaque acute Severe persistent asthma, uncomplicated acute Encounter for screening for lung cancer resolved History of cocaine abuse res olved History of methamphetamine abuse resolved [facility] Work Phone: evaluation note* Diagnosis Onset Date Resolution Status COPD exacerbation acute Hypertension acute Chest pain acute DM2 (diabetes mellitus, type 2) acute half-way (current) use of inhaled steroids acute Multiple pulmonary nodules a cute Obstructive sleep apnea acut e Pleural plaque acute Severe persistent asthma, uncomplicated acute Encounter for screening for lung cancer resolved History of cocaine abuse res olved History of methamphetamine abuse resolved Abnormal EKG acute Asthma-COPD overlap syndrome acute Atypical chest pain acute Chronic respiratory failure with hypoxia acute [facility] Work Phone: evaluation note* Diagnosis Onset Date Resolution Status COPD exacerbation acute Hypertension acute Chest pain acute DM2 (diabetes mellitus, type 2) 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 acute Multiple pulmonary nodules a cute Obstructive sleep apnea acut e Pleural plaque acute Severe persistent asthma, uncomplicated acute Encounter for screening for lung cancer resolved History of cocaine abuse res olved History of methamphetamine abuse resolved Abnormal EKG acute Asthma-COPD overlap syndrome acute Chronic respiratory failure with hypoxia acute Abnormal cardiovascular stress test acute Asthma-COPD overlap syndrome acute Chronic respiratory failure with hypoxia acute Exertional chest pain acute [facility] Work Phone: evaluation note* Diagnosis Onset Date Resolution Status Chest pain acute DM2 (diabetes mellitus, type 2) acute half-way (current) use of inhaled steroids acute Multiple pulmonary nodules a cute Obstructive sleep apnea acut e Pleural plaque acute Severe persistent asthma, uncomplicated acute Encounter for screening for lung cancer resolved History of cocaine abuse res olved History of methamphetamine abuse resolved Abnormal EKG acute Asthma-COPD overlap syndrome acute Chronic respiratory failure with hypoxia acute Abnormal cardiovascular stress test acute Asthma-COPD overlap syndrome acute Chronic respiratory failure with hypoxia acute Exertional chest pain acute [facility] Work Phone: evaluation note* Diagnosis Onset Date Resolution Status Abnormal cardiovascular stress test acute Asthma-COPD overlap syndrome acute Chronic respiratory failure with hypoxia acute Exertional chest pain acute DM2 (diabetes mellitus, type 2) acute [facility] Work Phone: Evaluation note* Diagnosis Onset Date Resolution Status Abnormal cardiovascular stress test acute Asthma-COPD overlap syndrome acute Chronic respiratory failure with hypoxia acute Exertional chest pain acute Chronic respiratory failure with hypoxia acute DM2 (diabetes mellitus, type 2) acute Foreign body in foot acute Hypertension acute Chest pain acute 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 acute DM2 (diabetes mellitus, type 2) acute half-way (current) use of inhaled steroids acute Multiple pulmonary nodules a cute Obstructive sleep apnea acut e Pleural plaque acute Severe persistent asthma, uncomplicated acute Encounter for screening for lung cancer resolved History of cocaine abuse res olved History of methamphetamine abuse resolved [facility] Work Phone: History and physical note Author Amish Mills [facility] February 24, 2022 8:44pm Note Date/Time February 24, 2022 8 :39pm [facility] [address] [place] [address] Hospitalist H&P Signed Patient: Cynthia Lozano MR#: [id number] : 1965 Acct:[id number] Age/Sex: 56 / F Adm Date: 2 Loc: Room: [address] [place] [address] Type: ADM IN Attending Dr: Amish Mills DO Copies to: DO Amish Lock, ~ HPI DATE OF EXAMINATION: 02/24/22 CHIEF COMPLAINT: shortness of breath HISTORY OF PRESENT ILLNESS: Miss Lozano is a 56-year-old female who was in the hospital today with chief complaint shortness of breath. She has a longstanding history of COPD and has been experiencing shortness of breath for a few weeks now, she saw her primary care physician this morning and per the patient she did receive a breathing treatment in the office and stated if she does not improve to come to the ER. The patient did not improve and she was subsequently coming to the hospital for further evaluation. She denies any cough with the shortness of breath. She denies any other symptoms as far as chest pain, wheezing. She states she has never been intubated though she has been placed on BiPAP mask numerous times. In the ED an ABG was performed after she was already placed on BiPAP and showed 7.32/52.8/91.1 these were on BiPAP settings of 04/08/1932 5%. Review of Systems Review of Systems Review of systems: Constitutional: Denies body aches, chills, fatigue Eyes: Denies any blurry or double vision CV: Denies chest pain, irregular rhythm, shortness of breath, leg swelling Respiratory, denies shortness of breath, cough, wheeze, pain with deep inspiration GI: Denies any nausea, vomiting, diarrhea, constipation, changes in bowel habitsoverall MSK: Denies joint pain, denies joint swelling, denies back pain, denies weakness Neurologic: Denies confusion, denies dizziness, denies headaches, denies lack coordination Psychiatric: Denies depression, denies behavioral changes Hematology: Denies easy bruising, denies easy bleeding PMFSH Vaccinated for COVID-19?: Yes Medical History (Updated 02/24/22 @ 20:38 by Amish Mills, DO) Alcohol abuse Apnea Asthma Bipolar 1 disorder COPD (chronic obstructive pulmonary disease) Crack cocaine use Hypertension Methamphetamine abuse PTSD (post-traumatic stress disorder) Surgical History History of x 3 Family History Mother Heart attack Diabetes Social History Smoking Status: Former smoker Tobacco Type: cigarettes Substance Use Type: None Substance Abuse Comment: clean for 2 years Social History Comments: Sober living house Meds Medications and Allergies Allergies No Known Allergies Allergy (Verified 02/24/22 19:58) Home Medications albuterol sulfate 2.5 mg/3 mL (0.083 %) solution for nebulization 2.5 mg (3 mL) inhalation QID.RESP PRN shortness of breath or wheezing ##0 03/16/19 [Rx Confirmed 06/12/21] albuterol sulfate 90 mcg/actuation aerosol inhaler 2 puff inhalation Q4-6H PRN Shortness Of Breath Or Wheezing #18 grams 03/16/19 [Rx Confirmed 06/12/21] mometasone-formoterol HFA 200 mcg-5 mcg/actuation aerosol inhaler (Dulera) 1 puff inhalation BID 11/03/19 [History Confirmed 06/12/21] levothyroxine 25 mcg tablet 25 mcg PO DAILY 05/17/20 [History Confirmed 06/12/21] topiramate 25 mg tablet 25 mg PO DAILY 05/17/20 [History Confirmed 06/12/21] bumetanide 0.5 mg tablet 0.5 mg PO BID@0800,1600 30 days #60 tabs 10/01/20 [Rx Confirmed 06/12/21] atorvastatin 10 mg tablet 10 mg PO HS 12/31/20 [History Confirmed 06/12/21] lisinopril 2.5 mg tablet 2.5 mg PO DAILY 12/31/20 [History Confirmed 06/12/21] metformin 500 mg tablet 1,000 mg PO BID 12/31/20 [History Confirmed 06/12/21] ondansetron 4 mg disintegrating tablet 4 mg PO Q6H PRN Nausea 06/12/21 [History Confirmed 06/12/21] pantoprazole 40 mg tablet,delayed release (Protonix) 40 mg PO DAILY #30 tabs 06/14/21 [Rx] potassium chloride 10 mEq tablet,extended release(part/cryst) (Klor-Con M) 20 meq PO BID #60 tabs 06/14/21 [Rx Confirmed 06/12/21] prochlorperazine maleate 10 mg tablet (Compazine) 10 mg PO Q8H PRN nausea and vomiting #14 tabs 06/14/21 [Rx] albuterol sulfate 90 mcg/actuation aerosol inhaler (Proventil HFA) 2 puff inhalation Q4-6H PRN Dyspnea #1 g 02/06/22 [Rx] albuterol sulfate 90 mcg/actuation aerosol inhaler (Proventil HFA) 2 puff inhalation Q4-6H PRN Shortness Of Breath Or Wheezing #1 device 02/06/22 [Rx] prednisone 10 mg tablet 60 mg PO DAILY #30 tabs 02/06/22 [Rx] prednisone 10 mg tablet 60 mg PO DAILY #30 tabs 02/06/22 [Rx] Exam Physical Exam Vital Signs: Temp Pulse Resp BP Pulse Ox O2 Del Method FiO2 98.7 F 83 24 118/60 97 BiPAP 35 02/24/22 16:01 02/24/22 19:58 02/24/22 19:58 02/24/22 18:30 02/24/22 19:59 02/24/22 19:59 02/24/22 19:59 Narrative: General: Awake alert, no acute distress HEENT: head atraumatic, normocephalic, moist mucous membranes, normal nose and ears, no throat lesions, normal conjunctiva Neck: supple no masses, no lymphadenopathy CVS: regular rate and rhythm, no murmurs or gallops Respiratory: Symmetric expansion, wearing BiPAP mask comfortably, very faint expiratory wheezes heard on her anterior lung cardenas however this was over shadowed by the sound of the BiPAP mask. Unable to auscultate her back due to body habitus. GI: soft, nondistended, nontender, positive bowel sounds with no organomegaly Extremity: moves all extremities, no restrictions of movements, no calf tenderness, no edema Neuro: AOx3, CN II-VII intact. Moves all extremities in all planes of motion. Skin: dry, intact no rashes or lesions Results Lab Results Labs: Laboratory Last Values Corrected WBC 10.9 X10E3/uL (3.8-11.6) 02/24/22 16:30 Uncorrected WBC Count 10.9 x10E3/uL (4.5-11.0) 02/24/22 16:30 RBC 4.83 x10E6/uL (3.60-5.00) 02/24/22 16:30 Hgb 12.7 g/dL (11.8-15.4) 02/24/22 16:30 Hct 39.3 % (34.0-46.4) 02/24/22 16:30 MCV 81.4 fl (80-100) 02/24/22 16:30 MCH 26.3 pg (24.7-34.3) 02/24/22 16:30 MCHC 32.3 g/dL (32.0-35.0) 02/24/22 16:30 RDW 14.8 % (11.9-15.3) 02/24/22 16:30 Plt Count 363 x10E3/uL (150-450) 02/24/22 16:30 MPV 7.6 fl (6.3-10.7) 02/24/22 16:30 Neut % (Auto) 71.4 % (.) 02/24/22 16:30 Lymph % (Auto) 20.6 % (.) 02/24/22 16:30 [place] % (Auto) 5.1 % (.) 02/24/22 16:30 Eos % (Auto) 1.6 % (.) 02/24/22 16:30 Baso % (Auto) 1.3 % (.) 02/24/22 16:30 Neut # (Auto) 7.8 x10E3/uL (1.8-7.7) H 02/24/22 16:30 Lymph # (Auto) 2.2 x10E3/uL (1.00-4.8) 02/24/22 16:30 [place] # (Auto) 0.6 x10E3/uL (0.0-0.8) 02/24/22 16:30 Eos # (Auto) 0.2 x10E3/uL (0.0-0.45) 02/24/22 16:30 Baso # (Auto) 0.1 x10E3/uL (0.0-0.2) 02/24/22 16:30 Nucleated RBC % (auto) 0.1 % (0-0.5) 02/24/22 16:30 Sample Site Left radial 02/24/22 18:56 ABG pH 7.32 (7.35-7.45) L 02/24/22 18:56 ABG pCO2 52.8 mmHg (35.0-45.0) H* 02/24/22 18:56 ABG pO2 91.1 mmHg (80.0-100.0) 02/24/22 18:56 ABG HCO3 26.3 mmol/L (23.0-29.0) 02/24/22 18:56 ABG Total CO2 27.9 mmol/L (23.0-27.0) H 02/24/22 18:56 ABG O2 Saturation 96.5 % (95.0-100.0) 02/24/22 18:56 ABG O2 Content 8.1 mmol/L (6.6-9.7) 02/24/22 18:56 ABG Base Excess -0.7 mmol/L (-3.0-3.0) 02/24/22 18:56 O2 Delivery Device Bipap 02/24/22 18:56 FiO2 35 % 02/24/22 18:56 PEEP 6 cmH2O 02/24/22 18:56 Pressure Support 6.0 cmH2O 02/24/22 18:56 Critical Value 02/24/22 18:56 PHA Creatinine Clear 70.70 02/24/22 16:30 Sodium 137 mmol/L (136-146) 02/24/22 16:30 Potassium 4.2 mmol/L (3.5-5.1) 02/24/22 16:30 Chloride 98 mmol/L (95-114) 02/24/22 16:30 Carbon Dioxide 27.6 mmol/L (22.0-30.0) 02/24/22 16:30 Anion Gap 15.6 mEq/L (6.0-15.0) H 02/24/22 16:30 BUN 36 mg/dL (9-23) H 02/24/22 16:30 Creatinine 0.97 mg/dL (0.44-1.03) 02/24/22 16:30 Est GFR ( Amer) > 60 mL/Min 02/24/22 16:30 Est GFR (Non-Af Amer) 59 mL/Min 02/24/22 16:30 Glucose 155 mg/dL (70-100) H 02/24/22 16:30 Calcium 9.6 mg/dL (8.2-10.2) 02/24/22 16:30 Magnesium 1.8 mg/dL (1.6-2.6) 02/24/22 16:30 Troponin I High Sens 5 pg/mL (0-15) 02/24/22 16:30 B-Natriuretic Peptide 10.0 pg/mL (5-100) 02/24/22 16:30 COVID-19 Clin Com Not detected (Not Detecte) 02/24/22 16:30 Microbiology Results Micro: Microbiology - Results from entire visit 02/24/22 16:30 Nasopharyngeal Respiratory Panel (PCR) - Final ABG Interpretation ABG results: 02/24/22 18:56 ABG pH 7.32 L ABG pCO2 52.8 H* ABG pO2 91.1 ABG HCO3 26.3 ABG Total CO2 27.9 H ABG O2 Saturation 96.5 ABG O2 Content 8.1 ABG Base Excess -0.7 A&P - Hospitalist Assessment/Plan (1) Hypercapnic respiratory failure: Plan: ? Admit to for PE ? Continuous BiPAP overnight, maintain settings of 04/08/1937 ? ABG in the morning ? DuoNebs every 6 hour scheduled for wheezing ? Solu-Medrol 40 mg IV push Q8 ? No indication for antibiotics at this time, patient was not complaining of any cough and had no productive sputum. (2) COPD exacerbation: Plan: See above (3) Diabetes mellitus type 2 in obese: Plan: ? Will hold metformin tonight and while she is n.p.o. for the BiPAP ? Insulin glargine 15 units nightly ? Insulin aspart 5 units 3 times daily AC with #1 sliding scale Plan ? N.p.o. while on BiPAP, normal diet once BiPAP is removed ? DVT prophylaxis with subcu heparin ? Full code Documented By: Amish Mills, 02/24/222033 Signed By: <Electronically signed by Amish Mills, DO> 02/24/222043 [facility] Work Phone: [facility] Narrative - Reported* Type Description Date Medical History Bipolar/schizo Medical History COPD Medical History Addiction Medical History asthma Surgical History polypectomy of right lung 2004 Surgical History x 3 Hospitalization History see above Hospitalization History COPD 10/2020 [facility] Narrative - Reported* Type Description Date Medical History Bipolar/schizo Medical History COPD Medical History Addiction Medical History asthma Surgical History polypectomy of right lung 2004 Surgical History polypectomy of right lung 2004 Surgical History x 3 Surgical History x 3 Hospitalization History see above Hospitalization History COPD 10/2020 [facility] Other Hospital Discharge instructionsAmbulatory Orders* Referral to Cardiology Location: None [facility] Work Phone: Hospital Discharge instructionsAmbulatory Orders* Cardiac Catheterization Location: None [facility] Work Phone: Hospital Discharge instructions Additional Instructions 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 1. You were given conscious sedation. Do not operate a vehicle, power tools, make important decisions, or drink alcohol for 24 hours. You might be drowsy or light headed. Return to the Emergency Room if you have trouble breathing, walking or nausea and vomiting. 2. FOR BLEEDING: Apply continuous pressure to the site and call 911. 3. Operative Site Care: Keep the dressing clean and dry. You may change the dressing only if soiled or wet. You may remove the dressing the following morning. You may wash over the puncture site in the shower. If the puncture site is at the wrist no soaking for 3 days. Some bruising or slight swelling may be present. -Signs of infection are redness, warmth, swelling, getting more sore, colored drainage, fever or chills. -Should the arm or leg become cold, numb, blue or white, call the build technician immediately. 4. ACTIVITY: You are advised to go directly home from the hospital. Restrict your activities for the rest of the day. Resume light or normal activities tomorrow. Do not engage in any activity that will stress the puncture site. Avoid heavy lifting (over 15 lbs.), straining or bending at the catheter site for 48 hours after discharge. If the puncture site is at the wrist do not manipulate wrist for 24 hours and no lifting more than 3 lbs for 3 days. 5. DIET:You may eat your regular diet when you desire. 6. MEDICATIONS: Resume your daily prescription schedule. Prescriptions may be sent with you if needed. Use as directed. When taking pain medications, you may experience dizziness or drowsiness. Do not drink alcohol or drive when taking pain medications. 7. If you should experience episodes of angina e.g. chest discomfort, heaviness, tightness, pressure, burning, with or without radiation to the neck, jaws, arms, or back- Use 1 Nitrostat under your tongue every 5-10 minutes, and up to 3 tablets. If no relief- Call 911 and go to the nearest Emergency Room. -Notify the office for recurrent angina, chest pain or other concerns. You may NOT drive yourself home! Follow the medication instructions provided on your discharge. If the dosages and instructions on this sheet differ from the dosage and instructions on the bottle, follow the instructions on the bottle. [facility] is not responsible for incorrect prescription information provided by the patient during their visit. Do not stop your medications without consulting your health care provider. Please take the list with you to your next doctor's appointment.[facility] Work Phone: Summary Purpose Family History Relationship Condition Age at Onset Recorded Date/T caridad Not Specified Myocardial infarction Unknown Diabetes mellitus Unknown Relationship Condition Age at Onset Recorded Date/T caridad Not Specified Myocardial infarction Unknown Diabetes mellitus Unknown brother Malignant neoplasm Unknown Malignant neoplasm of esophagus Unknown father Unknown Heart disease Unknown Hypertension Unknown family member Unknown Not Specified Unknown Family history of mental disorder Unknown natural son Family history of kidney transplant Unkno wn Unknown sister Family history of thyroid disease Unknown Relationship Condition Age at Onset Recorded Date/T caridad Not Specified Myocardial infarction Unknown Diabetes mellitus Unknown Family history of mental disorder Unknown Unknown brother Malignant neoplasm Unknown Malignant neoplasm of esophagus Unknown father Unknown Heart disease Unknown Hypertension Unknown natural son Family history of kidney transplant Unkno wn sister Family history of thyroid disease Unknown Rheumatoid arthritis Unknown Lupus Unknown Relationship Condition Age at Onset Recorded Date/T caridad mother Myocardial infarction Unknown Diabetes mellitus Unknown Family history of mental disorder Unknown Unknown brother Malignant neoplasm Unknown Malignant neoplasm of esophagus Unknown father Unknown Heart disease Unknown Hypertension Unknown son Family history of kidney transplant Unkno wn sister Family history of thyroid disease Unknown Rheumatoid arthritis Unknown Lupus Unknown Relationship Condition Age at Onset Recorded Date/T caridad mother Myocardial infarction Unknown Diabetes mellitus Unknown Family history of mental disorder Unknown Unknown brother Malignant neoplasm Unknown Malignant neoplasm of esophagus Unknown father Unknown Heart disease Unknown Hypertension Unknown son Family history of kidney transplant Unkno wn sister Family history of thyroid disease Unknown Rheumatoid arthritis Unknown Lupus Unknown daughter Unknown Advance Directives Advance Directive Response Recorded Date/ Time Advance Directives No January 3:23pm Advance Directive Response Recorded Date/ Time Advance Directives No January 2:23pm Advance Directive Response Recorded Date/ Time Advance Directives No August 26 10:00am Chief Complaint and Reason for Visit Chief Complaint lubago with sciatica , right side Chief Complaint lubago with sciatica , right side E11.9 M LBP Chief Complaint lubago with sciatica , right side E11.9 M LBP SOB Chief Complaint E11.9 SOB M LBP Shortness of Breath Reason for Visit Acute respiratory di stress COPD exacerbation Diabetes mellitus type 2 in obese Hypercapnic respiratory failure Chief Complaint SOB M LBP Shortness of Breath Reason for Visit Acute respiratory di stress COPD exacerbation Diabetes mellitus type 2 in obese Hypercapnic respiratory failure Chief Complaint SOB M LBP Shortness of Breath R91.8 Reason for Visit Acute respiratory di stress COPD exacerbation Diabetes mellitus type 2 in obese Hypercapnic respiratory failure Chief Complaint SOB M LBP Shortness of Breath R91.8 g47.30 Reason for Visit Acute respiratory di stress COPD exacerbation Diabetes mellitus type 2 in obese Hypercapnic respiratory failure Chief Complaint SOB M LBP Shortness of Breath R91.8 g47.30 titration Reason for Visit Acute respiratory di stress COPD exacerbation Diabetes mellitus type 2 in obese Hypercapnic respiratory failure Chief Complaint Screening Chief Complaint M54.10 Chief Complaint Reff By Scar Muhammad For Lum CC Adult Risk Stratification Amb Documentation Amb Documentation 3 month follow up Reason for Visit Diabetes mellitus ty pe 2 in obese Chief Complaint Amb Documentation Amb Documentation 3 month follow up 6 Month f/u- Astma w/COPD Overlap syndrome Reason for Visit COPD exacerbation Diabetes mellitus type 2 in obese Hypertension BMI 45.0-49.9, adult Chest pain Chronic respiratory failure with hypoxia DM2 (diabetes mellitus, type 2) Encounter for screening for lung cancer History of cocaine abuse History of methamphetamine abuse 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 tobacco abuse 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 Morbid obesity Multiple pulmonary nodules Obstructive sleep apnea Pleural plaque Severe persistent asthma, uncomplicated Chief Complaint Amb Documentation Amb Documentation 3 month follow up 6 Month f/u- Astma w/COPD 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 E66.9 I10 Reason for Visit COPD exacerbation Diabetes mellitus type 2 in obese Hypertension BMI 45.0-49.9, adult Chest pain Chronic respiratory failure with hypoxia DM2 (diabetes mellitus, type 2) Encounter for screening for lung cancer History of cocaine abuse History of methamphetamine abuse History of tobacco abuse half-way (current) use of inhaled steroids Morbid obesity Multiple pulmonary nodules Obstructive sleep apnea Pleural plaque Severe persistent asthma, uncomplicated Chief Complaint Amb Documentation Amb Documentation 3 month follow up 6 Month f/u- Astma w/COPD 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 E66.9 I10 j45.50 j45.50 Reason for Visit COPD exacerbation Diabetes mellitus type 2 in obese Hypertension BMI 45.0-49.9, adult Chest pain Chronic respiratory failure with hypoxia DM2 (diabetes mellitus, type 2) Encounter for screening for lung cancer History of cocaine abuse History of methamphetamine abuse History of tobacco abuse 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 Morbid obesity Multiple pulmonary nodules Obstructive sleep apnea Pleural plaque Severe persistent asthma, uncomplicated Chief Complaint Amb Documentation Amb Documentation 3 month follow up 6 Month f/u- Astma w/COPD 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 E66.9 I10 j45.50 j45.50 Chest Pain, Unspecified Reason for Visit COPD exacerbation Hypertension Chest pain DM2 (diabetes mellitus, type 2) half-way (current) use of inhaled steroids Multiple pulmonary nodules Obstructive sleep apnea Pleural plaque Severe persistent asthma, uncomplicated Encounter for screening for lung cancer History of cocaine abuse History of methamphetamine abuse Chief Complaint Amb Documentation Amb Documentation 3 month follow up 6 Month f/u- Astma w/COPD 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 E66.9 I10 j45.50 j45.50 Chest Pain, Unspecified Reason for Visit COPD exacerbation Hypertension Chest pain DM2 (diabetes mellitus, type 2) 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 Multiple pulmonary nodules Obstructive sleep apnea Pleural plaque Severe persistent asthma, uncomplicated Encounter for screening for lung cancer History of cocaine abuse History of methamphetamine abuse Abnormal EKG Asthma-COPD overlap syndrome Atypical chest pain Chronic respiratory failure with hypoxia Chief Complaint Amb Documentation 3 month follow up 6 Month f/u- Astma w/COPD 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 E66.9 I10 j45.50 j45.50 Chest Pain, Unspecified Z87.891 Reason for Visit COPD exacerbation Hypertension Chest pain DM2 (diabetes mellitus, type 2) half-way (current) use of inhaled steroids Multiple pulmonary nodules Obstructive sleep apnea Pleural plaque Severe persistent asthma, uncomplicated Encounter for screening for lung cancer History of cocaine abuse History of methamphetamine abuse Abnormal EKG Asthma-COPD overlap syndrome Atypical chest pain Chronic respiratory failure with hypoxia Chief Complaint Amb Documentation 3 month follow up 6 Month f/u- Astma w/COPD 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 E66.9 I10 j45.50 j45.50 Chest Pain, Unspecified Z87.891 Z87.891 Z87.891 Reason for Visit COPD exacerbation Hypertension Chest pain DM2 (diabetes mellitus, type 2) 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 Multiple pulmonary nodules Obstructive sleep apnea Pleural plaque Severe persistent asthma, uncomplicated Encounter for screening for lung cancer History of cocaine abuse History of methamphetamine abuse Abnormal EKG Asthma-COPD overlap syndrome Atypical chest pain Chronic respiratory failure with hypoxia Chief Complaint 3 month follow up 6 Month f/u- Astma w/COPD 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 E66.9 I10 j45.50 j45.50 Chest Pain, Unspecified Z87.891 Z87.891 1 Month Reason for Visit COPD exacerbation Hypertension Chest pain DM2 (diabetes mellitus, type 2) half-way (current) use of inhaled steroids Multiple pulmonary nodules Obstructive sleep apnea Pleural plaque Severe persistent asthma, uncomplicated Encounter for screening for lung cancer History of cocaine abuse History of methamphetamine abuse Abnormal EKG Asthma-COPD overlap syndrome Chronic respiratory failure with hypoxia Abnormal cardiovascular stress test Asthma-COPD overlap syndrome Chronic respiratory failure with hypoxia Exertional chest pain Chief Complaint 6 Month f/u- Astma w /COPD 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 E66.9 I10 j45.50 j45.50 Chest Pain, Unspecified Z87.891 Z87.891 1 Month abn stress test, exertional shortness of breath Reason for Visit Chest pain DM2 (diabetes mellitus, type 2) 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 Multiple pulmonary nodules Obstructive sleep apnea Pleural plaque Severe persistent asthma, uncomplicated Encounter for screening for lung cancer History of cocaine abuse History of methamphetamine abuse Abnormal EKG Asthma-COPD overlap syndrome Chronic respiratory failure with hypoxia Abnormal cardiovascular stress test Asthma-COPD overlap syndrome Chronic respiratory failure with hypoxia Exertional chest pain Chief Complaint 6 Month f/u- Astma w /COPD 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 E66.9 I10 j45.50 j45.50 Chest Pain, Unspecified Z87.891 Z87.891 1 Month abn stress test, exertional shortness of breath abn stress test, exetional shortness of breath abn stress test, exetional shortness of breath Reason for Visit Chest pain DM2 (diabetes mellitus, type 2) half-way (current) use of inhaled steroids Multiple pulmonary nodules Obstructive sleep apnea Pleural plaque Severe persistent asthma, uncomplicated Encounter for screening for lung cancer History of cocaine abuse History of methamphetamine abuse Abnormal EKG Asthma-COPD overlap syndrome Chronic respiratory failure with hypoxia Abnormal cardiovascular stress test Asthma-COPD overlap syndrome Chronic respiratory failure with hypoxia Exertional chest pain Chief Complaint 6 Month f/u- Astma w /COPD 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 E66.9 I10 j45.50 j45.50 Chest Pain, Unspecified Z87.891 Z87.891 1 Month abn stress test, exertional shortness of breath abn stress test, exetional shortness of breath abn stress test, exetional shortness of breath j45.50 Reason for Visit Chest pain DM2 (diabetes mellitus, type 2) 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 Multiple pulmonary nodules Obstructive sleep apnea Pleural plaque Severe persistent asthma, uncomplicated Encounter for screening for lung cancer History of cocaine abuse History of methamphetamine abuse Abnormal EKG Asthma-COPD overlap syndrome Chronic respiratory failure with hypoxia Abnormal cardiovascular stress test Asthma-COPD overlap syndrome Chronic respiratory failure with hypoxia Exertional chest pain Chief Complaint Z87.891 Z87.891 1 Month abn stress test, exertional shortness of breath abn stress test, exetional shortness of breath abn stress test, exetional shortness of breath j45.50 j45.50 4 month follow up Reason for Visit Abnormal cardiovascu lar stress test Asthma-COPD overlap syndrome Chronic respiratory failure with hypoxia Exertional chest pain DM2 (diabetes mellitus, type 2) Chief Complaint Z87.891 Z87.891 1 Month abn stress test, exertional shortness of breath abn stress test, exetional shortness of breath abn stress test, exetional shortness of breath j45.50 j45.50 4 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 Asthma, SHARAD Reason for Visit Abnormal cardiovascu lar stress test Asthma-COPD overlap syndrome Chronic respiratory failure with hypoxia Exertional chest pain Chronic respiratory failure with hypoxia DM2 (diabetes mellitus, type 2) Foreign body in foot Hypertension Chest pain Cigarette nicotine dependence with nicotine-induced disorder DM2 (diabetes mellitus, type 2) 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 Multiple pulmonary nodules Obstructive sleep apnea Pleural plaque Severe persistent asthma, uncomplicated Encounter for screening for lung cancer History of cocaine abuse History of methamphetamine abuse Reason for Referral Reason jeff - radicular low back pain Diagnosis 1 Lumbar radiculopathy (M54.16) Referral Organization [facility] [place] Referring Provider First Name Morena Referring Provider Last Name Shelly Referring Provider Specialty Family Medi cine Referred Organization Unknown Facility Referred Provider Specialty Pain Medicin e Referral Priority Routine Reason due for repeat colon oscopy Diagnosis 1 Colon cancer screeni ng (Z12.11) Referral Organization [facility] [place] Referring Provider First Name Morena Referring Provider Last Name Shelly Referring Provider Specialty Family Medi cine Referred Organization Unknown Facility Referred Provider Specialty Gastroentero logy Referral Priority Routine Additional Source Comments INFORMATION SOURCE (unrecogn ized section and content) DATE CREATED AUTHOR 10/20/2017 [facility] DATE CREATED AUTHOR AUTHOR'S ORGANIZ ATION 03/20/2022 [facility] DATE CREATED AUTHOR AUTHOR'S ORGANIZ ATION 11/17/2023 [facility] REASON FOR VISIT (unrecogniz ed section and content) 2 month Follow upREFILLHEP C -APPROVED#5 COVID EXPOSURE, SOB, HEADACHE, BODY ACHES, COUGHMEDICATIONREFILLNo Information3 month Follow upMED REFILLHospital visit FOLLOW UPNo InformationClinical Acute [id number] Acute IllnessPT HERE FOR FOLLOW UP [facility] [place] VISIT & THB INPT (MARIMAR SENDING RECORDS FROM [facility])refill3 month Follow uprefillrefillrefill3 month Follow uprefilllabsAsthma-COPD overlap syndrome and GERDNo InformationrefillOKLAHOMA [facility] VETER[facility] [place]-ER3 month Follow [id number] f/ucommoderefillNo InformationNo Information3 mo f/urefill3 month Follow vctygxmsH2y, needs rf of OzempicNo InformationNo Information4 month Follow upREFF BY SCAR LUND FOR LUMBAR RADICULOPATHYPAIN MANAGEMENT CONSULTBILATERAL L4 TRANSFORAMINAL EPIDURAL INJ/ELFOLLOW UP AFTER ARDEN LTR Care Teams (unrecognized sec tion and content) Team Status: Active Member Role Status Dates Morena Bravo DO Primary Care Provider Active Team Status: Active Member Role Status Dates Morena Bravo DO Primary Care Provider Active Start: June 18, 2023 Juliane Ribeiro RN Attending Provider Active Start: June 18, 2023 Team Status: Active Member Role Status Dates Morena Bravo DO Primary Care Provider Active Start: July 21, 2023 Yanelis Sanchez LPN Attending Provider Active Start: July 21, 2023 Team Status: Inactive Member Role Status Dates Morena Bravo DO Primary Care Pro adam, Attending Provider Active Start: July 27, 2023 End: July 27, 2023 Team Status: Inactive Member Role Status Dates Morena Bravo DO Primary Care Provider Active Start: August 27, 2023 End: August 27, 2023 Nirav P Samsa , DO Attending Provider Active St art: August 27, 2023 End: August 27, 2023 DME Active Start: August 262023 End: August 27, 2023 Team Status: Inactive Member Role Status Dates Morena Bravo , DO Primary Care Provider, Referri ng Provider Active Referral Self Attending Provider Active Team Status: Inactive Member Role Status Dates Morena Bravo , DO Primary Care Provider, Attendi ng Provider Active Team Status: Active Member Role Status Dates Morena Bravo , DO Primary Care Provider, Attendi ng Provider Active Team Status: Inactive Member Role Status Dates Morena rBavo , DO Primary Care Provider Active Cristal Bass , DO Emergency Provider Active Team Status: Active Member Role Status Dates Morena Bravo , DO Primary Care Provider Active Salvatore Rasmussen , DO Emergency Provider Active Amish Mills , DO Admit Provider, Attending Provider Active Team Status: Inactive Member Role Status Dates Morena Bravo , DO Primary Care Provider Active Salvatore Grady , DO Emergency Provider Active Amish Mills , DO Admit Provider, Attending Provider Active Team Status: Inactive Member Role Status Dates Morena Bravo , DO Primary Care Provider Active Jaquelin Ac MD Attending Provider Active Team Status: Inactive Member Role Status Dates Mayo Portillo MD Attending Provider Active Sta rt: May 15, 2023 End: May 15, 2023 Team Status: Active Member Role Status Dates Morena Bravo , DO Primary Care Pro vider, Attending Provider Active Start: May 26, 2023 Team Status: Inactive Member Role Status Dates Morena Bravo , DO Primary Care Pro vider, Attending Provider Active Start: August 27, 2023 End: August 27, 2023 Team Status: Inactive Member Role Status Dates Morena Bravo , DO Primary Care Provider Active Start: September 04, 2023 End: September 04, 2023 Nirav Trujillo , DO Attending Provider Active St art: September 04, 2023 End: September 04, 2023 Team Status: Active Member Role Status Dates Morena Bravo , DO Primary Care Provider Active Start: September 04, 2023 Nirav Trujillo , DO Other Provider Active Start: September 04, 2023 Pool Calvillo MD Attending Provider Active Start: September 04, 2023 Team Status: Active Member Role Status Dates Morena Bravo , DO Primary Care Provider Active Start: September 10, 2023 Sanya Valadez MD Attending Provider Activ e Start: September 10, 2023 Team Status: Inactive Member Role Status Dates Morena Bravo , DO Primary Care Provider Active Start: September 10, 2023 End: September 10, 2023 Sanya Valadez MD Attending Provider Activ e Start: September 10, 2023 End: September 10, 2023 Nirav Trujillo , DO Referring Provider Active St art: September 10, 2023 End: September 10, 2023 Team Status: Inactive Member Role Status Dates Morena Bravo , DO Primary Care Provider Active Start: September 10, 2023 End: September 10, 2023 Sanya Valadez MD Attending Provider Activ e Start: September 10, 2023 End: September 10, 2023 Team Status: Inactive Member Role Status Dates Morena Bravo , DO Primary Care Provider Active Start: September 24, 2023 End: September 24, 2023 Nirav Trujillo , DO Attending Provider Active St art: September 24, 2023 End: September 24, 2023 Team Status: Inactive Member Role Status Dates Morena Bravo DO Primary Care Provider Active Start: September 25, 2023 End: September 25, 2023 Nirav Trujillo , DO Attending Provider Active St art: September 25, 2023 End: September 25, 2023 Maday Jarvis MD Referring Provider Active Sta rt: September 25, 2023 End: September 25, 2023 Team Status: Active Member Role Status Dates Morena Bravo DO Primary Care Provider Active Start: September 25, 2023 Nirav Trujillo , DO Other Provider Active Start: September 25, 2023 Maday Jarvis MD Attending Provider, Referring Provider Active Start: September 25, 2023 Team Status: Active Member Role Status Dates Sanya Valadez MD Limo Driver Active Morena Bravo DO Primary Care Provider Active Team Status: Inactive Member Role Status Dates Morena Bravo DO Primary Care Provider Active Start: October 22, 2023 End: October 22, 2023 Sanya Valadez MD Attending Provider Activ e Start: October 22, 2023 End: October 22, 2023 Team Status: Inactive Member Role Status Dates Morena Bravo DO Primary Care Provider Active Start: October 28, 2023 End: October 28, 2023 Sanya Valadez MD Attending Provider Activ e Start: October 28, 2023 End: October 28, 2023 Team Status: Inactive Member Role Status Dates Morena Bravo DO Primary Care Provider Active Start: October 30, 2023 End: October 30, 2023 Sanya Valadez MD Attending Provider Activ e Start: October 30, 2023 End: October 30, 2023 Team Status: Active Member Role Status Dates Morena Bravo DO Primary Care Provider Active Start: October 30, 2023 Sanya Valadez MD Attending Provider, Other Provider Active Start: October 30, 2023 Team Status: Inactive Member Role Status Dates Morena Bravo DO Primary Care Provider Active Start: November 09, 2023 End: November 09, 2023 Niravjulia Trujillo , DO Attending Provider Active St art: November 09, 2023 End: November 09, 2023 Team Status: Active Member Role Status Dates Morena Bravo , DO Primary Care Provider Active Start: November 10, 2023 Nirav P Cassandra , DO Other Provider Active Start: November 10, 2023 Pool Calvillo MD Attending Provider Active Start: November 10, 2023 Team Status: Inactive Member Role Status Dates Morena Bravo DO Primary Care Pro vider, Attending Provider Active Start: December 11, 2023 End: December 11, 2023 Team Status: Inactive Member Role Status Dates Morena Bravo , DO Primary Care Provider Active Start: December 24, 2023 End: December 24, 2023 Nirav P Samsa , DO Attending Provider Active St art: December 24, 2023 End: December 24, 2023 Goals (unrecognized section and content) Goals may be documented in a n alternate section FOR RECORDS PERTAINING TO PATIENTS WHO ARE OR HAVE BEEN ENROLLED IN A CHEMICAL DEPENDENCY/SUBSTANCEABUSE PROGRAM, SOME INFORMATION MAY BE OMITTED. This clinical summary was aggregated from multiple sources. Caution should be exercised in using it in the provision of clinical care. This summary normalizes information from multiple sources, and as a consequence, information in this document may materially change the coding, format and clinical context of patient data. In addition, data may be omitted in some cases. CLINICAL DECISIONS SHOULD BE BASED ON THE PRIMARY CLINICAL RECORDS. [facility] [facility]. provides no warranty or guarantee of the accuracy or completeness of information in this document.
[2024-01-12 06:13] LABS: Hematocrit 37.7 % (36.0-48.0); Hemoglobin 11.6 g/dL (12.0-16.0); Mean Corpuscular HGB Conc 30.8 g/dL (29.9-35.2); Mean Corpuscular Hemoglobin 24.6 pg (26.7-34.0); Mean Corpuscular Volume 79.9 fL (81.0-99.0); Platelet Count 384 10^3/uL (150-450); Red Blood Count 4.72 10^6/uL (4.20-5.40); Red Cell Distribution Width 15.7 % (11.0-15.0); White Blood Count 8.7 10^3/uL (4.0-11.0)
--- NOTE | 2024-01-12 06:23 | P.HP_ITS ---
HPI H&P: HPI History of Present Illness Chief complaint: COPD EXACERBATION RESP DISTRESS Narrative: Patient was driving started having increasing shortness of breath, daughter took over control of the car was brought to the emergency room and upon arrival AMANDA SOTELO was called in the waiting room, patient was given subcu epinephrine, placed on BiPAP, steroids, magnesium, IV fluids, patient gradually improved and had was able to start speaking. Patient continued to improve in the emergency room and was transferred into the intensive care unit I saw patient up in the intensive care unit, patient resting in bed, BiPAP in place, breathing overall improved. Still some conversational dyspnea. Opioid HPI Opioid Management Most Recent Pain and Opioid Data: Last Pain Assessment 01/12/24 06:00 Last ORT Total Score 16 01/11/24 22:22 Last ORT Risk Category High Risk 01/11/24 22:22 Review of Systems ROS Status of ROS 10 or more systems reviewed and unremark able except as noted in history and below PFSH PFSH Medical History (Updated 01/11/24 @ 22:29 by Treasure Velez) Diabetes ?E11.9 - Type 2 diabetes mellitus without complications (ICD-10) Arthritis ?M19.90 - Unspecified osteoarthritis, unspecified site (ICD-10) AC (acromioclavicular) joint bone spurs ?M75.80 - Other shoulder lesions, unspecified shoulder (ICD-10) DDD (degenerative disc disease) CHF (congestive heart failure) ?I50.9 - Heart failure, unspecified (ICD-10) Bipolar 1 disorder ?F31.9 - Bipolar disorder, unspecified (ICD-10) Depression ?F32.A - Depression, unspecified (ICD-10) History of posttraumatic stress disorder (PTSD) ?Z86.59 - Personal history of other mental and behavioral disorders (ICD-10) Dystonia ?G24.9 - Dystonia, unspecified (ICD-10) Pneumothorax ?J93.9 - Pneumothorax, unspecified (ICD-10) Social History (Updated 01/11/24 @ 22:31 by Treasure Velez) Smoking status: Current every day smoker Non-prescribed substance use: former substance user Previous occupational history: disabled Highest level of school completed/degree received: 9th grade Are you now , , , , never or living with a partner: In a typical week, how many times do you talk on the telephone with family, friends, or neighbors: 3 or more times per week How often do you get together with friends or relatives: 3 or more times per week How often do you attend latter-day or gnosticism services: never Do you belong to any clubs or organizations such as latter-day groups unions, fraternal or athletic groups, or school groups: no Total score: 1 Score interpretation: A score of less than or equal to 1 indicates the most socially isolated. Little interest or pleasure in doing things: several days Feeling down, depressed, or hopeless: more than half the days Do you think of yourself as: straight/heterosexual Gender Identity: female Meds Home Medications and Allergies Home Medications ?Medication ?Instructions ?Recorded ?Confirmed ?Type aspirin 81 mg tablet,delayed 81 mg PO DAILY 01/11/24 01/11/24 History release atorvastatin 10 mg tablet 10 mg PO DAILY 01/11/24 01/11/24 History bumetanide 0.5 mg tablet 0.5 mg PO Q12H 01/11/24 01/11/24 History bupropion HCl 150 mg 24 hr tablet, 150 mg PO DAILY 01/11/24 01/11/24 History extended release fluticasone fur. 200 mcg-umeclid 1 inh inhalation Q24H 01/11/24 01/11/24 History 62.5 mcg-vilant 25 mcg inhalat.powder (Trelegy Ellipta) gabapentin 300 mg capsule 300 mg PO Q12H 01/11/24 01/11/24 History levothyroxine 25 mcg tablet 25 mcg PO DAILY 01/11/24 01/11/24 History lisinopril 2.5 mg tablet 2.5 mg PO DAILY 01/11/24 01/11/24 History meloxicam 15 mg tablet 15 mg PO DAILY 01/11/24 01/11/24 History metformin 1,000 mg tablet 1,000 mg PO BID 01/11/24 01/11/24 History metoprolol succinate 25 mg 25 mg PO DAILY 01/11/24 01/11/24 History tablet,extended release 24 hr omeprazole 20 mg capsule,delayed 20 mg PO DAILY 01/11/24 01/11/24 History release potassium chloride 20 mEq 20 meq PO BID 01/11/24 01/11/24 History tablet,extended release(part/cryst) (Klor-Con M) topiramate 25 mg tablet 25 mg PO DAILY 01/11/24 01/11/24 History Allergies Allergy/AdvReac Type Severity Reaction Status Date / Time No Known Drug Allergies Allergy Verified 01/11/24 20:12 Exam Constitutional Vital Signs, click to edit/add: Last Vital Signs Temp 97.6 F 01/12/24 04:00 Pulse 81 01/12/24 04:00 Resp 26 H 01/12/24 04:00 BP 139/91 01/12/24 04:00 Pulse Ox 94 L 01/12/24 04:00 O2 Del Method BIPAP 01/12/24 02:37 FiO2 28 01/12/24 04:00 Documenting provider has reviewed patient's vital signs: yes Common normals: apparent distress (Mild respiratory distress) Chest Common normals: inspection of chest normal Respiratory Common normals: abnormal respiratory effort Auscultation: rhonchi, wheezes (More the forced expiration) and diminished lung sounds Cardio Common normals: regular rate and regular rhythm; murmurs detected GI Common normals: Normal to inspection, nondistended, normoactive bowel sounds present, soft to palpation and non-tender Extremity Common normals: normal to inspection and full ROM Results Labs Labs: Short CBC 01/11/24 Range/Units 19:50 WBC 10.9 (4.0-11.0) 10^3/uL Hgb 12.8 (12.0-16.0) g/dL Hct 42.0 (36.0-48.0) % Plt Count 430 (150-450) 10^3/uL BMP 01/11/24 19:50 Sodium 139 Potassium 4.7 Chloride 100 Carbon Dioxide 30.9 BUN 33.0 H Creatinine 1.09 H Glucose 92 Calcium 9.5 Liver Function 01/11/24 Range/Units 19:50 Total Bilirubin 0.2 (0.2-1.0) mg/dL AST 11 L (15-37) U/L ALT 27 (14-59) U/L Alkaline Phosphatase 141 H (46-116) U/L Albumin 3.6 (3.4-5.0) g/dL Assessment and Plan Assessment and Plan (1) Acute exacerbation of chronic obstructive pulmonary disease: (2) Asthma with acute exacerbation: (3) Diabetes: (4) CHF (congestive heart failure): (5) Bipolar 1 disorder: (6) Dystonia: Plan Admission findings: Severe hypoxia with CODE BLUE called upon presenting to the emergency room. Verbal report of O2 saturation in the mid 70s. This is off of supplemental oxygen. Improved on BiPAP Acute exacerbation of COPD with chronic hypoxic respiratory failure-aerosols, steroids, antibiotics, patient currently on BiPAP and will try to wean that. She has supplemental oxygen at home at 2 L. NIDDM with diabetic peripheral neuropathy-insulin sliding scale, likely to be elevated due to steroid use Elevated liver function test-monitor daily-no abdominal tenderness Acute kidney injury-try to establish a baseline, monitor daily Hypothyroidism-maintain home medications Hypertension-continue with home medications GERD-continue with home medications Admission status: Patient with acute severe hypoxic episode secondary to acute exacerbation of COPD with chronic hypoxic respiratory failure on supplemental oxygen at home, medically necessary treatment will span 2 midnights. Inpatient status.
[2024-01-12 06:33] LABS: Alanine Aminotransferase 20 U/L (14-59); Albumin Globulin Ratio 0.9; Albumin Level 3.2 g/dL (3.4-5.0); Alkaline Phosphatase 129 U/L (46-116); Aspartate Amino Transferase 12 U/L (15-37); BUN Creatinine Ratio 30.9; Bilirubin Total 0.2 mg/dL (0.2-1.0); Chloride 104 mmol/L (98-107); Estimated GFR (African America >60 (>=60); Estimated GFR (Non-African Ame 59 (>=60); Globulin 3.5 g/dL; Glucose 154 mg/dL (74-106); Magnesium 2.2 mg/dL (1.8-2.4); Phosphorus 3.4 mg/dL (2.6-4.7); Potassium 4.8 mmol/L (3.5-5.1); Sodium 139 mmol/L (136-145); Total Protein 6.7 g/dL (6.4-8.2)
[2024-01-12 06:44] LABS: Anion Gap 16.4; Carbon Dioxide 23.4 mmol/L (21.0-32.0)
[2024-01-12 06:53] LABS: Lactate/Lactic Acid 1.7 mmol/L (0.4-2.0)
[2024-01-12 07:08] LABS: Segmented Neut Absolute Manual 8.09 10^3/uL (1.4-6.5)
--- NOTE | 2024-01-12 07:16 | RESP.RT ---
Placed on 2L NC. RR 18 currently
--- NOTE | 2024-01-12 08:00 | XR_ITS ---
The [address] [address] Patient Name: ESTELLE CARSON MRN: [id number] date: 1965 Sex: F Assigned Patient Location: ICU Current Patient Location: ICU Accession/Order Number: [id number] Exam Date: 01/12/2024 08:38 Report Date: 01/12/2024 11:27 At the request of: DUNG BAUER Procedure: XR chest 1V EXAMINATION: XR chest 1V HISTORY: copd COMPARISON: XR chest 01/11/2024, 03/18/2022 FINDINGS: LUNGS: Stable chronic 2.5 cm opacity within lateral right upper lobe adjacent an area of pleural thickening. Mild haziness within lateral left lung base partially obscuring the lower heart and diaphragm margin.. VASCULATURE: No increased pulmonary vasculature. PLEURA: Blunting of costophrenic angles bilaterally. CARDIAC: No cardiomegaly or cardiac silhouette abnormality. MEDIASTINUM: No visible mass or adenopathy. BONES: No fracture or visible bone lesion. OTHER: Negative. XR/XR chest 1V IMPRESSION: 1. Small bilateral pleural effusions and mild basilar atelectasis versus infiltrates; not significant changed compared to prior studies. 2. Stable right midlung opacity and pleural thickening; scarring versus neoplasm versus infiltrate; not appreciably changed compared to 2021. 3. No appreciable new findings. Electronically authenticated by: GIFTY WAGNER Date: 01/12/2024 11:27
[2024-01-12] MEDS: LEVOTHYROXINE SODIUM 25 MCG TABLET PO (08:03)
[2024-01-12] MEDS: METHYLPREDNISOLONE SOD SUCC PF 125 MG/2 ML VIAL IVP (08:04)
[2024-01-12 08:07] LABS: Glucometer 164 mg/dL (74-106)
[2024-01-12 08:27] LABS: ABG PCO2 45.5 mmHg (35.0-45.0); PO2 ABG 78.4 mmHg (80.0-100.0); pH ABG 7.303 (7.350-7.450)
[2024-01-12 08:28] LABS: Allen Test POS (POSITIVE); Base Excess ABG -3.8 mmol/L (-2.0-2.0); HCO3 ABG 22.5 mmol/L (22.0-26.0); Liters per Minute 2; O2 Mode NC; Oxygen Saturation ABG 95.6 %; Puncture Site R RADIAL
[2024-01-12] MEDS: OMEPRAZOLE 20 MG CAPSULE.DR PO (09:49)
[2024-01-12] MEDS: GABAPENTIN 300 MG CAPSULE PO ×2 (09:49→21:01)
[2024-01-12] MEDS: ASPIRIN 81 MG TABLET.DR PO (09:50)
[2024-01-12] MEDS: POTASSIUM CHLORIDE 10 MEQ ER TABLET 20 MEQ PO ×2 (09:50→21:01)
[2024-01-12] MEDS: MELOXICAM 7.5 MG TABLET 15 MG PO (09:50)
[2024-01-12] MEDS: BUMETANIDE 1 MG TABLET 0.5 MG PO ×2 (09:51→21:01)
[2024-01-12] MEDS: METFORMIN HCL 500 MG TABLET 1000 MG PO ×2 (09:51→17:06)
[2024-01-12] MEDS: LISINOPRIL 5 MG TABLET 2.5 MG PO (09:51)
[2024-01-12] MEDS: BUPROPION HCL 150 MG XL TABLET 24H PO (09:52)
[2024-01-12] MEDS: TOPIRAMATE 25 MG TABLET PO (09:52)
[2024-01-12] MEDS: METOPROLOL SUCCINATE 25 MG TAB.ER.24H PO (09:52)
[2024-01-12] MEDS: LEVOFLOXACIN IN DEXTROSE 5 % 750 MG/150 ML PREMIX 100 MG IV (09:52)
--- NOTE | 2024-01-12 09:55 | CM.NOTE ---
Important Message from [employer] reviewed and discussed with patient. Pt. verbalized understanding and signed the form. Original given to patient and copy placed in patient?s chart.
[2024-01-12] MEDS: BUDESONIDE 0.5 MG/2 ML AMPULE NEB IH ×2 (10:42→20:15)
--- NOTE | 2024-01-12 10:46 | RESP.RT ---
Pt wears 2L at home
[2024-01-12] MEDS: 0.9 % SODIUM CHLORIDE 1,000 ML 75 ML IV ×2 (11:43→23:37)
[2024-01-12] MEDS: NICOTINE 21 MG PATCH.TD24 TD (11:43)
[2024-01-12 11:48] LABS: Glucometer 196 mg/dL (74-106)
[2024-01-12] MEDS: INSULIN ASPART 300 UNIT/3 ML PEN SUBQ (11:54)
[2024-01-12] MEDS: GUAIFENESIN 200 MG/DEXTROMETHORPHAN 20 MG 10 ML UNIT DOSE CUP PO (12:53)
[2024-01-12] MEDS: ACETAMINOPHEN 325 MG TABLET 650 MG PO (12:53)
[2024-01-12] MEDS: HYDROXYZINE PAMOATE 25 MG CAPSULE PO ×2 (12:53→21:00)
--- NOTE | 2024-01-12 13:01 | PM.PLCN ---
History of Present Illness History of Present Illness Consult date: 01/12/24 Requesting physician: Garry Desir Reason for consult: hypoxemia Chief complaint: COPD EXACERBATION RESP DISTRESS Narrative: 58yo female presents to the ER yesterday in respiratory distress. She follows with me at the [facility] practice in [place]. She has asthma?COPD overlap and is O2 dependent with coronary artery disease. 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 She forgot to bring her O2 with her. She also noticed that the wind was quite blustery. The daughter noticed that the patient was not breathing well and that her saturations were decreased. She was brought to the ER for evaluation and was in respiratory distress. She was placed on a BiPAP and did better; she did not require intubation or CPR. Chest x-ray did not show any acute abnormalities. White blood count was normal. Lactate was 1.7, with troponin and BNP in normal ranges. Patient was admitted to intensive care unit for further management. An ABG this morning was reviewed. pH 7.3; pCO2 45.5; pO2 78.4; TaQ334.6; FiO2 2L/min. Serum HCO3- 23.4, albumin 3.2. Obtain better history. When I last saw her in the office in [place] 12/24/2023, she admitted to the me that she was smoking when she previously stated that she had quit. The patient admitted to me that she quit smoking 3 days ago. She has not used any e-cigarettes as a substitute. She was not exposed to any new perfumes, results engineer, etc. Denies any exposures to any toxic fumes. She states Thursday she was very tired and was in bed all day, but did not feel that her breathing was any worse. Once again she admitted that it was very windy yesterday; She had the car window down. After examination, she developed a coughing paroxysm that lasted several minutes Review of Systems ROS Status of ROS 10 or more systems reviewed and unremarkable except as noted in history and below Constitutional Denies: fever, chills or night sweats Respiratory Reports: shortness of breath, cough and wheezing; Denies: stridor, pain on inspiration or coughing up blood [facility] Medical History (Updated 09/10/24 @ 13:18 by Praveen Trujillo DO) Diabetes ?E11.9 - Type 2 diabetes mellitus without complications (ICD-10) Arthritis ?M19.90 - Unspecified osteoarthritis, unspecified site (ICD-10) AC (acromioclavicular) joint bone spurs ?M75.80 - Other shoulder lesions, unspecified shoulder (ICD-10) DDD (degenerative disc disease) CHF (congestive heart failure) ?I50.9 - Heart failure, unspecified (ICD-10) Bipolar 1 disorder ?F31.9 - Bipolar disorder, unspecified (ICD-10) Depression ?F32.A - Depression, unspecified (ICD-10) History of posttraumatic stress disorder (PTSD) ?Z86.59 - Personal history of other mental and behavioral disorders (ICD-10) Dystonia ?G24.9 - Dystonia, unspecified (ICD-10) Pneumothorax ?J93.9 - Pneumothorax, unspecified (ICD-10) Social History (Updated 01/11/24 @ 22:31 by Treasure Velez) Smoking status: Current every day smoker Non-prescribed substance use: former substance user Previous occupational history: disabled Highest level of school completed/degree received: 9th grade Are you now , , , , never or living with a partner: In a typical week, how many times do you talk on the telephone with family, friends, or neighbors: 3 or more times per week How often do you get together with friends or relatives: 3 or more times per week How often do you attend denominational or confucianist services: never Do you belong to any clubs or organizations such as denominational groups unions, fraternal or athletic groups, or school groups: no Total score: 1 Score interpretation: A score of less than or equal to 1 indicates the most socially isolated. Little interest or pleasure in doing things: several days Feeling down, depressed, or hopeless: more than half the days Do you think of yourself as: straight/heterosexual Gender Identity: female Meds Home Medications and Allergies Home Medications ?Medication ?Instructions ?Recorded ?Confirmed ?Type aspirin 81 mg tablet,delayed 81 mg PO DAILY 01/11/24 01/11/24 History release atorvastatin 10 mg tablet 10 mg PO DAILY 01/11/24 01/11/24 History bumetanide 0.5 mg tablet 0.5 mg PO Q12H 01/11/24 01/11/24 History bupropion HCl 150 mg 24 hr tablet, 150 mg PO DAILY 01/11/24 01/11/24 History extended release fluticasone fur. 200 mcg-umeclid 1 inh inhalation Q24H 01/11/24 01/11/24 History 62.5 mcg-vilant 25 mcg inhalat.powder (Trelegy Ellipta) gabapentin 300 mg capsule 300 mg PO Q12H 01/11/24 01/11/24 History levothyroxine 25 mcg tablet 25 mcg PO DAILY 01/11/24 01/11/24 History lisinopril 2.5 mg tablet 2.5 mg PO DAILY 01/11/24 01/11/24 History meloxicam 15 mg tablet 15 mg PO DAILY 01/11/24 01/11/24 History metformin 1,000 mg tablet 1,000 mg PO BID 01/11/24 01/11/24 History metoprolol succinate 25 mg 25 mg PO DAILY 01/11/24 01/11/24 History tablet,extended release 24 hr omeprazole 20 mg capsule,delayed 20 mg PO DAILY 01/11/24 01/11/24 History release potassium chloride 20 mEq 20 meq PO BID 01/11/24 01/11/24 History tablet,extended release(part/cryst) (Klor-Con M) topiramate 25 mg tablet 25 mg PO DAILY 01/11/24 01/11/24 History Allergies Allergy/AdvReac Type Severity Reaction Status Date / Time No Known Drug Allergies Allergy Verified 01/11/24 20:12 Exam Constitutional Vital Signs, click to edit/add: Last Vital Signs Temp 97.6 F 01/12/24 04:00 Pulse 91 H 01/12/24 10:44 Resp 20 01/12/24 10:44 BP 134/79 01/12/24 09:51 Pulse Ox 96 01/12/24 10:44 O2 Del Method Nasal Cannula 01/12/24 10:44 O2 Flow Rate 2 01/12/24 10:44 FiO2 28 01/12/24 07:16 Documenting provider has reviewed patient's vital signs: yes General appearance: cooperative and comfortable HENMT Common normals: normocephalic Other: Mallampati III, no candidiasis Respiratory Other: New bibasilar crackles with expiratory wheezes on forced exhalation. This caused her to go into a coughing paroxysm for several minutes Cardio Rate: regular rate Rhythm: regular rhythm GI Inspection: central obesity Extremity Common normals: normal to inspection Neuro Common normals: oriented x3 Psych Common normals: mental status grossly normal Results Laboratory Findings ABG, PT/INR, D-dimer: ABG ABG pH 7.303 (7.350-7.450) L 01/12/24 08:20 ABG pCO2 45.5 mmHg (35.0-45.0) H 01/12/24 08:20 ABG pO2 78.4 mmHg (80.0-100.0) L 01/12/24 08:20 ABG O2 Saturation 95.6 % 01/12/24 08:20 Abnormal lab findings: Abnormal Labs 01/11/24 01/12/24 01/12/24 19:50 05:25 08:06 Hgb 11.6 L MCV 78.7 L 79.9 L MCH 24.0 L 24.6 L RDW 15.6 H 15.7 H Neut # (Auto) 6.7 H Abs Immat Gran (auto) 0.12 H Seg Neuts % (Manual) 93.0 H Lymphocytes % (Manual) 7.0 L Monocytes % (Manual) 0.0 L Eosinophils % (Manual) 0.0 L Basophils % (Manual) 0.0 L Imm/Tot Granulo (auto) 1.1 H Neutrophils # (Manual) 8.09 H Lymphocytes # (Manual) 0.60 L Monocytes # (Manual) 0.00 L ABG pH ABG pCO2 ABG pO2 ABG Base Excess BUN 33.0 H 30.0 H Creatinine 1.09 H Est GFR (Non-Af Amer) 51 L 59 L Glucose 154 H AST 11 L 12 L Alkaline Phosphatase 141 H 129 H Albumin 3.2 L POC Glucose 164 H 01/12/24 01/12/24 08:20 11:47 Hgb MCV MCH RDW Neut # (Auto) Abs Immat Gran (auto) Seg Neuts % (Manual) Lymphocytes % (Manual) Monocytes % (Manual) Eosinophils % (Manual) Basophils % (Manual) Imm/Tot Granulo (auto) Neutrophils # (Manual) Lymphocytes # (Manual) Monocytes # (Manual) ABG pH 7.303 L ABG pCO2 45.5 H ABG pO2 78.4 L ABG Base Excess -3.8 L BUN Creatinine Est GFR (Non-Af Amer) Glucose AST Alkaline Phosphatase Albumin POC Glucose 196 H Assessment and Plan Assessment and Plan (1) Severe persistent asthma with acute exacerbation: Assessment and Plan: Patient has asthma/COPD overlap. Unclear exactly what exacerbated her symptoms, but appear to been a quite an acute response to something. Does not appear to be anaphylactic, stridor, or other upper airway associated cause. She continues to be bronchospastic today, and went into a coughing paroxysm after examination. I would continue current treatment with steroids, bronchodilators, and antitussives for cough control. She does not have a white count and chest x-ray is unremarkable, so clinical suspicion for pneumonia is low. Likewise, influenza and COVID screens are negative. Could perform rapid respiratory panel, but for those agents that are tested, the treatment is simply supportive. (2) Acidosis: Assessment and Plan: ABG 01/12/2024: pH 7.3, pCO2 45.5, HCO3 23.4. This is a very mild acidosis. Analysis suggests very mild respiratory acidosis with a secondary metabolic acidosis, likely non-anion gap. However etiology is unclear at this time to explain the metabolic portion. She does not complain of any vomiting or diarrhea.It is mild so we will just repeat the ABG tomorrow to make sure that nothing is worsening. If so, may need further examination such as urine studies. (3) Acute on chronic hypoxic respiratory failure: Assessment and Plan: Baseline O2 is 2L/minute. (4) Cigarette nicotine dependence with nicotine-induced disorder: Assessment and Plan: Quit 3 days ago. Patient encouraged to keep up the good work. (5) Morbid obesity: Assessment and Plan: BMI 47.5. Inducing a restrictive pulmonary physiology. Weight loss strongly recommended.
--- NOTE | 2024-01-12 13:45 | RESP.RT ---
Pt placed back on bipap due to an episode of SOB and oxygen desaturation. Pt resting comfortably on bipap.
[2024-01-12 16:59] LABS: Glucometer 119 mg/dL (74-106)
[2024-01-12] MEDS: METHYLPREDNISOLONE SOD SUCC PF 125 MG/2 ML VIAL 60 MG IVP ×2 (17:06→23:01)
--- NOTE | 2024-01-12 20:12 | PC.NURSE ---
2012 - Pt's daughter Manjula called to get an update. Discussed pt's day and current plan of care. Manjula declined a call back from primary RN at this time. Questions addressed to the best of RN's ability.
[2024-01-12 20:56] LABS: Glucometer 146 mg/dL (74-106)
[2024-01-12] MEDS: BENZONATATE 100 MG CAPSULE 200 MG PO (21:00)
[2024-01-12] MEDS: ATORVASTATIN CALCIUM 10 MG TABLET PO (21:10)
[2024-01-12] MEDS: ENOXAPARIN SODIUM 40 MG/0.4 ML SYRINGE SUBQ (21:10)
[2024-01-13] VITALS (74 sets, daily range): BP systolic 93–133; BP diastolic 56–85; PULSE 57–102; RESP 16; TEMP 36.3–37.1; O2SAT 92–100
[2024-01-13] MEDS: IPRATROPIUM/ALBUTEROL SULFATE 3 ML AMPUL.NEB IH ×4 (05:10→20:01)
[2024-01-13 05:56] LABS: Basophils Percent Auto 0.1 % (0.2-2.0); Hematocrit 37.5 % (36.0-48.0); Hemoglobin 11.2 g/dL (12.0-16.0); Immature Granulocytes Abs Auto 0.11 10^3/uL (0.00-0.03); Immature Granulocytes Pct Auto 0.6 % (0.0-0.5); Lymphocytes Absolute Auto 0.8 10^3/uL (1.2-3.8); Lymphocytes Percent Auto 4.4 % (20.5-60.0); Mean Corpuscular HGB Conc 29.9 g/dL (29.9-35.2); Mean Corpuscular Volume 80.3 fL (81.0-99.0); Mean Platelet Volume 10.3 fL (9.5-13.5); Monocytes Absolute Auto 0.2 10^3/uL (0.3-0.8); Monocytes Percent Auto 1.2 % (1.7-12.0); Neutrophils Absolute Auto 16.8 10^3/uL (1.4-6.5); Neutrophils Percent Auto 93.7 % (43.0-75.0); Platelet Count 348 10^3/uL (150-450); Red Blood Count 4.67 10^6/uL (4.20-5.40)
[2024-01-13 06:10] LABS: Alanine Aminotransferase 21 U/L (14-59); Albumin Globulin Ratio 0.9; Alkaline Phosphatase 112 U/L (46-116); Anion Gap 15.2; Aspartate Amino Transferase 11 U/L (15-37); BUN Creatinine Ratio 25.2; Bilirubin Total 0.2 mg/dL (0.2-1.0); Carbon Dioxide 25.9 mmol/L (21.0-32.0); Chloride 105 mmol/L (98-107); Estimated GFR (African America >60 (>=60); Estimated GFR (Non-African Ame 50 (>=60); Globulin 3.2 g/dL; Glucose 162 mg/dL (74-106); Potassium 5.1 mmol/L (3.5-5.1); Sodium 141 mmol/L (136-145); Total Protein 6.2 g/dL (6.4-8.2)
[2024-01-13] MEDS: METHYLPREDNISOLONE SOD SUCC PF 125 MG/2 ML VIAL 60 MG IVP ×3 (06:24→17:19)
[2024-01-13] MEDS: LEVOTHYROXINE SODIUM 25 MCG TABLET PO (06:25)
[2024-01-13 06:47] LABS: ABG PCO2 44.5 mmHg (35.0-45.0); Allen Test POSITIVE (POSITIVE); Base Excess ABG -4.3 mmol/L (-2.0-2.0); HCO3 ABG 22.1 mmol/L (22.0-26.0); Oxygen Saturation ABG 93.5 %; PO2 ABG 67.1 mmHg (80.0-100.0); pH ABG 7.304 (7.350-7.450)
[2024-01-13 06:48] LABS: Liters per Minute 2; O2 Mode NASAL CANNULA
--- NOTE | 2024-01-13 07:28 | PM.PLPN ---
Progress Note: A&P Assessment and Plan (1) Severe persistent asthma with acute exacerbation: Assessment and Plan: Remains bronchospastic with expiratory wheezes, mildly labored at rest. Continue bronchodilators and steroids. (2) Acidosis: Assessment and Plan: Repeat ABG relatively unchanged - pH ~7.3 and pCO2 ~45. Mixed primary respiratory acidosis + NAG metabolic acidosis. ? diarrhea, ? other. Will check urine labs - ? RTA. (3) Acute on chronic hypoxic respiratory failure: Assessment and Plan: Using BiPAP @ HS and during the day. O2 during off-times...baseline ~2L/min. Has SHARAD - encouraged patient to reconsider PAP use after discharge. (4) Cigarette nicotine dependence with nicotine-induced disorder: Assessment and Plan: Stop smoking! (5) Morbid obesity: Assessment and Plan: Weight loss. Plan Okay for transfer to floor. I do not feel she is satisfactory for discharge yet from a pulmonary standpoint - still too symptomatic. Subjective Subjective Interval history: Patient states she is doing about the same...only slightly better than yesterday, if that. Still continues to have wheezes with SANTIAGO...short of breath walking to the commode & back. Non-productive cough. No fevers, chills, sweats. Denies any vomiting, has mild nausea at times. Had a little diarrhea prior to admission, not massive. Reviewed ABG from this AM with patient - almost exactly the same as yesterday - pH ~ 7.3 and pCO2 ~ 45. WBC to 18k, but she is on steroids. Exam Constitutional Vital Signs, click to edit/add: Last Vital Signs Temp 98 F 01/13/24 04:00 Pulse 97 H 01/13/24 06:06 Resp 20 01/13/24 05:10 BP 93/58 01/13/24 06:00 Pulse Ox 96 01/13/24 06:06 O2 Del Method Nasal Cannula 01/13/24 06:00 O2 Flow Rate 2 01/13/24 05:30 FiO2 2 01/13/24 06:00 Documenting provider has reviewed patient's vital signs: yes General appearance: cooperative [facility] Common normals: normocephalic Other: Wearing nasal cannula Respiratory Effort & inspection: pursed lip breathing (mild @ rest) Other: Decreased crackles from yesterday. Still has expiratory wheezes even with ambient breathing. Cardio Rate: regular rate Rhythm: regular rhythm GI Inspection: central obesity Extremity Common normals: normal to inspection Neuro Common normals: oriented x3 Psych Common normals: mental status grossly normal
--- NOTE | 2024-01-13 07:40 | P.PN_ITS ---
Progress Note: Subjective Subjective Interval history: Patient still describes shortness of breath. Tried to wean to 2 L yesterday but then unable to tolerate and had increasing dyspnea and required being placed back on BiPAP. Exam Constitutional Vital Signs, click to edit/add: Last Vital Signs Temp 98 F 01/13/24 04:00 Pulse 97 H 01/13/24 06:06 Resp 20 01/13/24 05:10 BP 93/58 01/13/24 06:00 Pulse Ox 96 01/13/24 06:06 O2 Del Method Nasal Cannula 01/13/24 06:00 O2 Flow Rate 2 01/13/24 05:30 FiO2 2 01/13/24 06:00 Documenting provider has reviewed patient's vital signs: yes Common normals: apparent distress (Mild respiratory distress) Chest Common normals: inspection of chest normal Respiratory Common normals: abnormal respiratory effort Auscultation: rhonchi, wheezes (More the forced expiration) and diminished lung sounds Cardio Common normals: regular rate and regular rhythm; murmurs detected GI Common normals: Normal to inspection, nondistended, normoactive bowel sounds present, soft to palpation and non-tender Extremity Common normals: normal to inspection (1+ edema which is probably her baseline) and full ROM Progress Note: Objective Labs Labs: Short CBC 01/13/24 Range/Units 05:28 WBC 18.0 H (4.0-11.0) 10^3/uL Hgb 11.2 L (12.0-16.0) g/dL Hct 37.5 (36.0-48.0) % Plt Count 348 (150-450) 10^3/uL BMP 01/13/24 05:28 Sodium 141 Potassium 5.1 Chloride 105 Carbon Dioxide 25.9 BUN 28.0 H Creatinine 1.11 H Glucose 162 H Calcium 9.0 Liver Function 01/13/24 Range/Units 05:28 Total Bilirubin 0.2 (0.2-1.0) mg/dL AST 11 L (15-37) U/L ALT 21 (14-59) U/L Alkaline Phosphatase 112 (46-116) U/L Albumin 3.0 L (3.4-5.0) g/dL Progress Note: A&P Assessment and Plan (1) Severe persistent asthma with acute exacerbation: (2) Acidosis: (3) Acute on chronic hypoxic respiratory failure: (4) Cigarette nicotine dependence with nicotine-induced disorder: (5) Morbid obesity: Plan Admission findings: Severe hypoxia with CODE BLUE called upon presenting to the emergency room. Verbal report of O2 saturation in the mid 70s. This is off of supplemental oxygen. Improved on BiPAP Acute exacerbation of COPD and asthma with chronic hypoxic respiratory failure- aerosols, steroids, antibiotics, patient currently on BiPAP and will try to wean that. She has supplemental oxygen at home at 2 L. Improved from pulmonology, now with significant leukocytosis with left shift consistent with bacterial process urine culture pending, consider repeat chest x-ray in a.m. NIDDM with diabetic peripheral neuropathy-insulin sliding scale, likely to be elevated due to steroid use-continue to monitor Elevated liver function test-monitor daily-no abdominal tenderness-improving Acute kidney injury-slightly elevated today likely secondary to the above. Continue to return Hypothyroidism-maintain home medications Peripheral edema likely secondary to venous insufficiency-compression hose Hypertension-continue with home medications GERD-continue with home medications Admission status: Some improvement based on her symptoms, but still with significant respiratory distress requiring BiPAP at times throughout the day. Medically necessary treatment likely spanned at least 2 more nights. ?
[2024-01-13 07:46] LABS: Glucometer 143 mg/dL (74-106)
[2024-01-13] MEDS: OMEPRAZOLE 20 MG CAPSULE.DR PO (08:00)
[2024-01-13] MEDS: POTASSIUM CHLORIDE 10 MEQ ER TABLET 20 MEQ PO ×2 (08:00→20:52)
[2024-01-13] MEDS: BUMETANIDE 1 MG TABLET 0.5 MG PO ×2 (08:01→20:52)
[2024-01-13] MEDS: BUPROPION HCL 150 MG XL TABLET 24H PO (08:01)
[2024-01-13] MEDS: ASPIRIN 81 MG TABLET.DR PO (08:01)
[2024-01-13] MEDS: LISINOPRIL 5 MG TABLET 2.5 MG PO (08:01)
[2024-01-13] MEDS: METFORMIN HCL 500 MG TABLET 1000 MG PO ×2 (08:01→16:00)
[2024-01-13] MEDS: MELOXICAM 7.5 MG TABLET 15 MG PO (08:02)
[2024-01-13] MEDS: GABAPENTIN 300 MG CAPSULE PO ×2 (08:02→20:52)
[2024-01-13] MEDS: TOPIRAMATE 25 MG TABLET PO (08:02)
[2024-01-13] MEDS: METOPROLOL SUCCINATE 25 MG TAB.ER.24H PO (08:02)
[2024-01-13] MEDS: ACETAMINOPHEN 500 MG TABLET 1000 MG PO ×2 (08:15→15:57)
[2024-01-13] MEDS: BUDESONIDE 0.5 MG/2 ML AMPULE NEB IH ×2 (10:19→20:01)
[2024-01-13 11:44] LABS: Glucometer 188 mg/dL (74-106)
[2024-01-13] MEDS: INSULIN ASPART 300 UNIT/3 ML PEN SUBQ ×3 (11:49→21:02)
[2024-01-13 13:47] LABS: Potassium Urine Random 76.6 mmol/L; Sodium Urine Random 26 mmol/L (30-90)
[2024-01-13] MEDS: 0.9 % SODIUM CHLORIDE 1,000 ML 75 ML IV (13:49)
[2024-01-13] MEDS: GUAIFENESIN 200 MG/DEXTROMETHORPHAN 20 MG 10 ML UNIT DOSE CUP PO (15:57)
[2024-01-13 17:27] LABS: Glucometer 231 mg/dL (74-106)
[2024-01-13 20:49] LABS: Glucometer 177 mg/dL (74-106)
[2024-01-13] MEDS: HYDROXYZINE PAMOATE 25 MG CAPSULE PO (20:52)
[2024-01-13] MEDS: ENOXAPARIN SODIUM 40 MG/0.4 ML SYRINGE SUBQ (20:53)
[2024-01-13] MEDS: ATORVASTATIN CALCIUM 10 MG TABLET PO (21:02)
[2024-01-14] VITALS (9 sets, daily range): BP systolic 115–148; BP diastolic 76–87; PULSE 63–78; TEMP 36.4–36.6; O2SAT 95–98
[2024-01-14] MEDS: METHYLPREDNISOLONE SOD SUCC PF 125 MG/2 ML VIAL 60 MG IVP ×2 (01:05→06:01)
[2024-01-14] MEDS: 0.9 % SODIUM CHLORIDE 1,000 ML 75 ML IV (03:58)
[2024-01-14] MEDS: IPRATROPIUM/ALBUTEROL SULFATE 3 ML AMPUL.NEB IH (04:10)
--- NOTE | 2024-01-14 06:00 | XR_ITS ---
The [address] [address] Patient Name: ESTELLE CARSON MRN: [id number] date: 1965 Sex: F Assigned Patient Location: [place] Current Patient Location: Accession/Order Number: [id number] Exam Date: 01/14/2024 06:10 Report Date: 01/14/2024 09:33 At the request of: NIRAV ANGEL Procedure: XR chest 1V EXAM: XR chest 1V HISTORY: Asthma exacerbation COMPARISON: 01/12/2024 TECHNIQUE: AP portable erect FINDINGS: LUNGS: Low lung volumes. Focal spiculated density right lateral midlung zone measuring 2.1 cm stable from the exam 2 days ago. The left lung is clear. VASCULATURE: No increased pulmonary vasculature. PLEURA: Blunting of the costophrenic angle suggestive of small pleural effusion/scar CARDIAC: No cardiomegaly or cardiac silhouette abnormality. MEDIASTINUM: No visible mass or adenopathy. BONES: No fracture or visible bone lesion. OTHER: Negative. XR/XR chest 1V IMPRESSION: Stable focal spiculated 2.1 cm density right lateral midlung Electronically authenticated by: ABY MATT Date: 01/14/2024 09:33
[2024-01-14] MEDS: LEVOTHYROXINE SODIUM 25 MCG TABLET PO (06:01)
--- NOTE | 2024-01-14 06:08 | P.PN_ITS ---
Progress Note: Subjective Subjective Interval history: Patient still describes shortness of breath. Tried to wean to 2 L yesterday but then unable to tolerate and had increasing dyspnea and required being placed back on BiPAP. Exam Constitutional Vital Signs, click to edit/add: Last Vital Signs Temp 97.6 F 01/14/24 03:22 Pulse 63 01/14/24 06:00 Resp 24 H 01/14/24 04:24 BP 148/87 H 01/14/24 03:22 Pulse Ox 96 01/14/24 06:00 O2 Del Method Nasal Cannula 01/14/24 04:24 O2 Flow Rate 2 01/14/24 04:24 FiO2 28 01/13/24 23:50 Progress Note: Objective Labs Labs: BMP 01/13/24 05:28 Sodium 141 Potassium 5.1 Chloride 105 Carbon Dioxide 25.9 BUN 28.0 H Creatinine 1.11 H Glucose 162 H Calcium 9.0 Liver Function 01/13/24 Range/Units 05:28 Total Bilirubin 0.2 (0.2-1.0) mg/dL AST 11 L (15-37) U/L ALT 21 (14-59) U/L Alkaline Phosphatase 112 (46-116) U/L Albumin 3.0 L (3.4-5.0) g/dL Progress Note: A&P Assessment and Plan (1) Severe persistent asthma with acute exacerbation: (2) Acidosis: (3) Acute on chronic hypoxic respiratory failure: (4) Cigarette nicotine dependence with nicotine-induced disorder: (5) Morbid obesity: Plan Admission findings: Severe hypoxia with CODE BLUE called upon presenting to the emergency room. Verbal report of O2 saturation in the mid 70s. This is off of supplemental oxygen. Improved on BiPAP Acute exacerbation of COPD and asthma with chronic hypoxic respiratory failure-aerosols, steroids, antibiotics, patient currently on BiPAP and will try to wean that. She has supplemental oxygen at home at 2 L. Improved from pulmonology, now with significant leukocytosis with left shift consistent with bacterial process urine culture pending, consider repeat chest x-ray in a.m. NIDDM with diabetic peripheral neuropathy-insulin sliding scale, likely to be elevated due to steroid use-continue to monitor Elevated liver function test-monitor daily-no abdominal tenderness-improving Acute kidney injury-slightly elevated today likely secondary to the above. Continue to return Hypothyroidism-maintain home medications Peripheral edema likely secondary to venous insufficiency-compression hose Hypertension-continue with home medications GERD-continue with home medications Admission status: Some improvement based on her symptoms, but still with significant respiratory distress requiring BiPAP at times throughout the day. M edically necessary treatment likely spanned at least 2 more nights. ? ?
[2024-01-14 06:30] LABS: Basophils Percent Auto 0.1 % (0.2-2.0); Hematocrit 37.3 % (36.0-48.0); Hemoglobin 10.8 g/dL (12.0-16.0); Immature Granulocytes Abs Auto 0.12 10^3/uL (0.00-0.03); Immature Granulocytes Pct Auto 0.7 % (0.0-0.5); Lymphocytes Absolute Auto 0.5 10^3/uL (1.2-3.8); Lymphocytes Percent Auto 3.2 % (20.5-60.0); Mean Corpuscular Hemoglobin 23.8 pg (26.7-34.0); Mean Corpuscular Volume 82.2 fL (81.0-99.0); Mean Platelet Volume 11.3 fL (9.5-13.5); Monocytes Absolute Auto 0.3 10^3/uL (0.3-0.8); Monocytes Percent Auto 1.5 % (1.7-12.0); Neutrophils Absolute Auto 16.1 10^3/uL (1.4-6.5); Neutrophils Percent Auto 94.5 % (43.0-75.0); Platelet Count 257 10^3/uL (150-450); Red Blood Count 4.54 10^6/uL (4.20-5.40); Red Cell Distribution Width 16.6 % (11.0-15.0)
[2024-01-14 06:45] LABS: Alanine Aminotransferase 26 U/L (14-59); Albumin Level 3.2 g/dL (3.4-5.0); Alkaline Phosphatase 106 U/L (46-116); Aspartate Amino Transferase 17 U/L (15-37); Bilirubin Total 0.2 mg/dL (0.2-1.0); Calcium 9.1 mg/dL (8.5-10.1); Estimated GFR (African America >60 (>=60); Estimated GFR (Non-African Ame >60 (>=60); Globulin 3.3 g/dL; Glucose 150 mg/dL (74-106); Total Protein 6.5 g/dL (6.4-8.2)
[2024-01-14 06:52] LABS: Anion Gap 13.6; Carbon Dioxide 25.6 mmol/L (21.0-32.0); Chloride 106 mmol/L (98-107); Potassium 5.2 mmol/L (3.5-5.1); Sodium 140 mmol/L (136-145)
[2024-01-14 07:20] LABS: Glucometer 163 mg/dL (74-106)
--- NOTE | 2024-01-14 08:13 | PM.PLPN ---
Progress Note: A&P Assessment and Plan (1) Severe persistent asthma with acute exacerbation: Assessment and Plan: Marked improvement. Appears satisfactory for discharge. Can D/C with steroid taper. F/U @ [facility] pulmonary office in ~1 month. (2) Acidosis: Assessment and Plan: Urine labs pending. Will need to assess outpatient. (3) Acute on chronic hypoxic respiratory failure: Assessment and Plan: Back to baseline 2L/min. (4) Cigarette nicotine dependence with nicotine-induced disorder: Assessment and Plan: NO SMOKING! (5) Morbid obesity: Assessment and Plan: Weight loss. Subjective Subjective Interval history: Patient is doing much better today. Breathing near/at baseline. Walking without SANTIAGO. O2 2L/min - baseline. No complaints. Feels ready to go home. CXR still pending as well as urine labs. Exam Constitutional Vital Signs, click to edit/add: Last Vital Signs Temp 97.9 F 01/14/24 07:25 Pulse 77 01/14/24 07:56 Resp 16 01/14/24 07:25 BP 115/76 01/14/24 07:25 Pulse Ox 96 01/14/24 07:56 O2 Del Method Nasal Cannula 01/14/24 07:25 O2 Flow Rate 2 01/14/24 04:24 FiO2 28 01/13/24 23:50 Documenting provider has reviewed patient's vital signs: yes General appearance: cooperative HENMT Common normals: normocephalic Other: Wearing nasal cannula No candidiasis Respiratory Other: No labored breathing today Breath sounds have cleared - no wheezes or crackles Cardio Rate: regular rate Rhythm: regular rhythm GI Inspection: central obesity Extremity Common normals: normal to inspection Neuro Common normals: oriented x3 Psych Common normals: mental status grossly normal
[2024-01-14] MEDS: INSULIN ASPART 300 UNIT/3 ML PEN SUBQ (08:30)
--- NOTE | 2024-01-14 08:32 | P.DS_ITS ---
DS: Providers Provider Date of admission: 01/11/24 21:58 Primary care physician: Garry Desir MD Consults: 01/12/24 06:00 Consult to Pulmonology Routine Consulting Provider: Praveen Trujillo Reason for consultation: asthma Has provider been notified: No DS: Diagnosis Discharge Diagnosis (1) Severe persistent asthma with acute exacerbation: (2) Acidosis: (3) Acute on chronic hypoxic respiratory failure: (4) Cigarette nicotine dependence with nicotine-induced disorder: (5) Morbid obesity: Plan Admission findings: Severe hypoxia with CODE BLUE called upon presenting to the emergency room. Verbal report of O2 saturation in the mid 70s. This is off of supplemental oxygen. Improved on BiPAP Acute exacerbation of COPD and asthma with chronic hypoxic respiratory failure- aerosols, steroids, antibiotics, patient currently on BiPAP and will try to wean that. She has supplemental oxygen at home at 2 L. Improved from pulmonology, now with significant leukocytosis with left shift consistent with bacterial process urine culture pending, consider repeat chest x-ray in a.m. NIDDM with diabetic peripheral neuropathy-insulin sliding scale, likely to be elevated due to steroid use-continue to monitor Elevated liver function test-monitor daily-no abdominal tenderness-improving Acute kidney injury-slightly elevated today likely secondary to the above. Con tinue to return Hypothyroidism-maintain home medications Peripheral edema likely secondary to venous insufficiency-compression hose Hypertension-continue with home medications GERD-continue with home medications Admission status: Some improvement based on her symptoms, but still with significant respiratory distress requiring BiPAP at times throughout the day. Medically necessary treatment likely spanned at least 2 more nights. ? ? DS: Summary Hospital Course Hospital Course: Patient was admitted with acute hypoxic respiratory failure requiring BiPAP ventilation. No significant improvement in the first 24 hours, even the first 36 really. But yesterday evening started having less dyspnea. She was able to be on a regular 2 L starting last night. She did well overnight. Did wear the BiPAP some overnight she does have CPAP that she uses intermittently at home. Her acute exacerbation of COPD and asthma appears to be much improved today. He is not having any more wheezing on exam. Able to ambulate in room well. At this point we will get have her ambulate in the halls, if she ambulates well she will be discharged to home in improving condition. Medications see list. Follow-up with me and pulmonology within the next week. Status at Discharge Overall status at discharge: patient is not back to baseline Time Spent with Patient Time attestation: Total time spent providing and/or coordinating discharge services: Time spent: greater than 30 minutes Exam Constitutional Vital Signs, click to edit/add: Last Vital Signs Temp 97.9 F 01/14/24 07:25 Pulse 77 01/14/24 07:56 Resp 16 01/14/24 07:25 BP 115/76 01/14/24 07:25 Pulse Ox 96 01/14/24 07:56 O2 Del Method Nasal Cannula 01/14/24 07:25 O2 Flow Rate 2 01/14/24 04:24 FiO2 28 01/13/24 23:50 Documenting provider has reviewed patient's vital signs: yes Common normals: apparent distress (Mild respiratory distress) General appearance: cooperative HENAK Common normals: normocephalic Other: Wearing nasal cannula No candidiasis Chest Common normals: inspection of chest normal Respiratory Common normals: normal respiratory effort Auscultation: rhonchi (Minimal rhonchi) and diminished lung sounds; no wheezes (More the forced expiration) Cardio Common normals: regular rate and regular rhythm; murmurs detected Rate: regular rate Rhythm: regular rhythm GI Common normals: Normal to inspection, nondistended, normoactive bowel sounds present, soft to palpation and non-tender Inspection: central obesity Extremity Common normals: normal to inspection Neuro Common normals: oriented x3 Psych Common normals: mental status grossly normal DS: Data Data Completed and Pending Labs on day of discharge: Labs from last 24 hours 01/14/24 01/14/24 01/13/24 07:11 05:43 20:47 WBC 17.0 H RBC 4.54 Hgb 10.8 L Hct 37.3 MCV 82.2 MCH 23.8 L MCHC 29.0 L RDW 16.6 H Plt Count 257 MPV 11.3 Neut % (Auto) 94.5 H Lymph % (Auto) 3.2 L [place] % (Auto) 1.5 L Eos % (Auto) 0.0 L Baso % (Auto) 0.1 L Neut # (Auto) 16.1 H Lymph # (Auto) 0.5 L [place] # (Auto) 0.3 Eos # (Auto) 0.0 Baso # (Auto) 0.0 Abs Immat Gran (auto) 0.12 H Imm/Tot Granulo (auto) 0.7 H Sodium 140 Potassium 5.2 H Chloride 106 Carbon Dioxide 25.6 Anion Gap 13.6 BUN 32.0 H Creatinine 0.89 Est GFR ( Amer) >60 Est GFR (Non-Af Amer) >60 BUN/Creatinine Ratio 36.0 Glucose 150 H Calcium 9.1 Total Bilirubin 0.2 AST 17 ALT 26 Alkaline Phosphatase 106 Total Protein 6.5 Albumin 3.2 L Globulin 3.3 Albumin/Globulin Ratio 1.0 Ur Random Sodium Ur Random Potassium POC Glucose 163 H 177 H 01/13/24 01/13/24 01/13/24 17:16 11:33 09:35 WBC RBC Hgb Hct MCV MCH MCHC RDW Plt Count MPV Neut % (Auto) Lymph % (Auto) [place] % (Auto) Eos % (Auto) Baso % (Auto) Neut # (Auto) Lymph # (Auto) [place] # (Auto) Eos # (Auto) Baso # (Auto) Abs Immat Gran (auto) Imm/Tot Granulo (auto) Sodium Potassium Chloride Carbon Dioxide Anion Gap BUN Creatinine Est GFR ( Amer) Est GFR (Non-Af Amer) BUN/Creatinine Ratio Glucose Calcium Total Bilirubin AST ALT Alkaline Phosphatase Total Protein Albumin Globulin Albumin/Globulin Ratio Ur Random Sodium 26 L Ur Random Potassium 76.6 POC Glucose 231 H 188 H Preliminary micro results at discharge 01/12/24 12:55 Sputum Result 1 - Preliminary Sputum - Expectorated Sputum Lower Respiratory Culture - Preliminary Discharge Plan Discharge Disposition: Home, Self-Care Discharge Medications: New prednisone 10 mg tablet 50 mg PO DAILY Qty: 47 0RF Rx Instructions: 5/day for 3 days. 4/day for 3 days, 3/day for 3 days, 2/day for 3 days, 1/day for 3 days, 1/2 /day for 4 days levofloxacin 750 mg tablet 750 mg PO DAILY 7 Days Qty: 7 0RF Continued gabapentin 300 mg capsule 300 mg PO Q12H metformin 1,000 mg tablet 1,000 mg PO BID levothyroxine 25 mcg tablet 25 mcg PO DAILY lisinopril 2.5 mg tablet 2.5 mg PO DAILY meloxicam 15 mg tablet 15 mg PO DAILY metoprolol succinate 25 mg tablet extended release 24 hr 25 mg PO DAILY omeprazole 20 mg capsule,delayed release(DR/EC) 20 mg PO DAILY potassium chloride [Klor-Con M20] 20 mEq tablet,ER particles/crystals 20 meq PO BID topiramate 25 mg tablet 25 mg PO DAILY Trelegy Ellipta 200-62.5-25 mcg blister with device 1 inh INHALATION Q24H bupropion HCl 150 mg tablet extended release 24 hr 150 mg PO DAILY bumetanide 0.5 mg tablet 0.5 mg PO Q12H atorvastatin 10 mg tablet 10 mg PO DAILY aspirin 81 mg tablet,delayed release (DR/EC) 81 mg PO DAILY Activity: resume usual activities as tolerated Diet: advance to your usual diet Print Language: Tamazight Patient Instructions: Prednisone (By mouth), Levofloxacin (By mouth) (Levaquin, Levaquin Leva-analisa), COPD (Chronic Obstructive Pulmonary Disease) (DC) Forms: Portal Instructions Follow Up Appointments: @ 10:15am with Dr. Desir [phone] . @ 2:30pm with Dr. Trujillo [facility] [phone] Discharge Date/Time: 01/14/24 11:13
[2024-01-14] MEDS: MELOXICAM 7.5 MG TABLET 15 MG PO (09:00)
[2024-01-14] MEDS: METOPROLOL SUCCINATE 25 MG TAB.ER.24H PO (09:00)
[2024-01-14] MEDS: LISINOPRIL 5 MG TABLET 2.5 MG PO (09:00)
[2024-01-14] MEDS: BUMETANIDE 1 MG TABLET 0.5 MG PO (09:00)
[2024-01-14] MEDS: ASPIRIN 81 MG TABLET.DR PO (09:00)
[2024-01-14] MEDS: LEVOFLOXACIN IN DEXTROSE 5 % 750 MG/150 ML PREMIX 100 MG IV (09:00)
[2024-01-14] MEDS: GABAPENTIN 300 MG CAPSULE PO (09:00)
[2024-01-14] MEDS: TOPIRAMATE 25 MG TABLET PO (09:00)
[2024-01-14] MEDS: BUPROPION HCL 150 MG XL TABLET 24H PO (09:00)
[2024-01-14] MEDS: METFORMIN HCL 500 MG TABLET 1000 MG PO (09:00)
[2024-01-14] MEDS: OMEPRAZOLE 20 MG CAPSULE.DR PO (09:00)
[2024-01-15 00:11] LABS: Osmolality, Urine 648 mOsmol/kg (.)
--- NOTE | 2024-01-18 10:40 | CM.DCFOLLOWU ---
Person spoke with: patient How are you feeling? well How is your pain? none Did you understand your discharge instructions? yes Do you have any questions about your discharge instructions? no Were you given any prescriptions at discharge? yes Were you able to get your prescriptions filled? yes Do you understand how to take your medications as ordered? yes Do you have any questions about your follow up appointment and do you plan to keep your follow up appointment? no questions, patient was at follow up during phone call Is there anything else that you would like to discuss? no Questions/Comments/Concerns/Other:none
== END 2024-01-14 11:13 | disposition home or self-care (01) | DRG 190 ==
LOC: ER 20:10 → ICU 01-12 06:04 → MS 01-13 10:04
PROVIDERS: Internal Medicine; Registered Nurse; Admitting Provider Family Medicine; Emergency Provider Emergency Medicine; PCP Family Medicine; Visit Provider Family Medicine
DX: J44.1 Chronic obstructive pulmonary disease with (acute) exacerbation (principal); J96.21 Acute and chronic respiratory failure with hypoxia; J45.51 Severe persistent asthma with (acute) exacerbation; Z68.42 Body mass index [BMI] 45.0-49.9, adult; N17.9 Acute kidney failure, unspecified; E87.4 Mixed disorder of acid-base balance; Z99.81 Dependence on supplemental oxygen; I25.10 Atherosclerotic heart disease of native coronary artery without angina pectoris; E11.42 Type 2 diabetes mellitus with diabetic polyneuropathy; M19.90 Unspecified osteoarthritis, unspecified site; I50.9 Heart failure, unspecified; F31.9 Bipolar disorder, unspecified; E66.01 Morbid (severe) obesity due to excess calories; F17.219 Nicotine dependence, cigarettes, with unspecified nicotine-induced disorders; G24.9 Dystonia, unspecified; R79.89 Other specified abnormal findings of blood chemistry; I11.0 Hypertensive heart disease with heart failure; K21.9 Gastro-esophageal reflux disease without esophagitis; E03.9 Hypothyroidism, unspecified; I87.2 Venous insufficiency (chronic) (peripheral); Z86.59 Personal history of other mental and behavioral disorders; Z20.822 Contact with and (suspected) exposure to COVID-19; Z79.82 Long term (current) use of aspirin; Z79.899 Other long term (current) drug therapy; Z79.84 Long term (current) use of oral hypoglycemic drugs; Z79.890 Hormone replacement therapy
CPT/HCPCS: 36415; 36600; 71045; 80053; 82435; 82436; 82805; 82945; 82948; 83605; 83735; 83880; 83935; 84100; 84133; 84300; 84484; 84520; 84540; 85007; 85025; 85027; 87070; 87804; 87811; 93005; 94640; 94660; 94667; 94668; 94761; 96365; 96366; 96367; 96372; 96375; 96376; 99285; J0713; J1650; J2060; J2919; J3475; Q0177

== ENCOUNTER 2024-06-05 15:26 | Emergency (ER) | payer MEDICARE, SELFPAY ==
[2024-06-05] VITALS (22 sets, daily range): BP systolic 106–142; BP diastolic 71–107; PULSE 72–103; O2SAT 93–97; BMI 47.7
--- OUTSIDE RECORDS SUMMARY | 2024-06-05 15:47 | XMS_ITS | CCD ---
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 Name Role Phone Morena Bravo Unavailable Vipul Jimenez Unavailable Radha Markham Unavailable Morena Bravo Unavailable DO Morena Bravo Primary Care Provider [phone] DO Morena Bravo Attending Provider Jaquelin Ac Unavailable Clara Adams Unavailable DO Cristal Bass Emergency Provider DO Morena Bravo Primary Care Provider [phone] DO Morena Bravo Attending Provider DO Salvatore Rasmussen Emergency Provider DO Amish Mills Admit Provider DO Amish Mills Attending Provider [phone] MATTHEW, DR SCHMITT Primary Care Unavailable PAY, DR POLANCO Admitting Unavailable PAY, DR POLANCO Attending Unavailable KRISTY, DR GIFTY Emery Consulting Unavailable PAY, DR POLANCO Consulting Unavailable MATTHEW, DR SCHMITT Primary Care Unavailable NELLIE, DR LUDIVINA Martinez Consulting Unavailable SAMSA, NIRAV Admitting Unavailable SAMSA, NIRAV Attending Unavailable OFELIA, DR CLEMONS Consulting Unavailable SAMSA, NIRAV Consulting Unavailable MAREKLSIE MENCHACA Consulting Unavailable JORDAN MARCIAL Consulting Unavailable DO Shelly Morena E Primary Care Provider [phone] DO Cristal Bass Emergency Provider [phone] Schwerer, DO Morena E Attending Provider DO Salvatore Rasmussen Emergency Provider DO Amish Mills Admit Provider DO Amish Mills Attending Provider MD Jaquelin Ac Attending Provider Schwerer, DO Morena E Primary Care Provider Schwerer, DO Morena E Referring Provider Self, Referral Attending Provider Unavailable Schwerer, DO Morena E Primary Care Provider [phone] Schwerer, DO Morena E Attending Provider JeffMayo Unavailable Schwerer, DO Morena E Primary Care Provider Schwerer, DO Morena E Attending Provider DO Cassandra Nirav P Attending Provider MD Sanya Valadez Attending Provider MD Mdaay Jarvis Referring Provider Sanya Valadez Admitting Unavai lable Sanya Valadez [...] Admitting Unavailable Samsa, Nirav P Attending Unavailable Samsa, Nirav P Attending Unavailable Schwerer, Morena E Primary Care Unavailable Samsa, Nirav P Admitting Unavailable Samsa, Nirav P Admitting Unavailable Samsa, Nirav P Attending Unavailable Morena Bravo Primary Care Unavailable Maday Jarvis Referring Unavailable Morena Bravo Primary Care Unavailable Sanya Valadez Admitting Unavai lable Rory, Sanya Mcneil Attending Morena Donaldson Primary Care Unavailable Sanya Valadez Admitting Unavai lable Rory, Sanya Mcneil Attending DO Morena Donaldson Primary Care Provider [phone] DO Nirav Trujillo Attending Provider [phone] MD Sanya Valadez Attending Provider DO Morena Bravo Primary Care Provider [phone] MD Sanya Valadez Attending Provider DO Nirav Trujillo Attending Provider [phone] DO Morena Bravo Attending Provider Morena Bravo DO Primary Care Provider [phone] Morena Bravo DO Attending Provider Allergies Allergy Classification Reported Allergen(s) Allergy Type Date of Onset Reaction(s) Facility (20 sources) Codeine Drug Allergy dizziness/nause a [employer] Other (1 source) Codeine Drug Allergy [address] [place] [address] Repository Medications Current Medications Medication Drug Class(es) [...] by inhalation every four to six hours as needed for dyspnea Albuterol Sulfate (Proventil Hfa) 90 mcg/actuation Hfa Aerosol Inhaler Discontinued 2 PUFF INHALATION EVERY 4-6 HOURS as needed for Dyspnea February 05, 2022 11:00pm February 24, 2022 7:51pm Start: 06-28-2018 End: 03-16-2019 take 2.5 mg by inhalation four times daily as needed for wheezing Albuterol Sulfate 2.5 mg /3 mL (0.083 %) Solution For Nebulization Active 2.5 MG INHALATION Four times daily - Respiratory as needed for shortness of breath or wheezing 0 March 16, 2019 2:22pm Start: 06-27-2018 End: 03-16-2019 take 1 puff(s) [...] by inhalation every four to six hours as needed for wheezing Albuterol Sulfate 2.5 mg /3 mL (0.083 %) Solution For Nebulization Discontinued 2.5 MG INHALATION EVERY 4-6 HOURS as needed for Shortness Of Breath Or Wheezing June 03, 2018 12:00am June 26, 2018 2:10pm take 1 puff(s) by in halation every [...] tablet by mouth twice daily Amoxicillin-Pot Clavulanate 875-125 mg Tablet Discontinued 1 TAB PO Twice daily 14 7 December 22, 2017 11:00pm December 28, 2017 11:00pm December 29, 2017 7:34am aspirin 81 mg delayed release oral tablet (15 sources) Platelet Aggregation Inhibitor, Nonsteroidal Anti-inflammatory Drug Start: 10-22-2023 End: 10-28-2023 Aspirin (Adult Low Dose Aspirin) 81 mg tablet,delayed release (DR/EC) Active 81 MG PO Every morning October 27, 2023 11:00pm atorvastatin 10 mg oral tablet (20 sources) HMG-CoA Reductase Inhibitor Start: 03-24-2024 take 1 tablet by mouth once daily Atorvastatin 10 mg tablet Active 10 MG PO Daily March 24, 2024 12:00am Start: 12-11-2023 End: 03-24-2024 take 1 tablet by mouth once daily Atorvastatin 40 mg tablet Discontinued 40 MG PO Daily December 11, 2023 10:28am March 24, 2024 11:09am Start: 12-02-2023 End: 12-11-2023 take 1 tablet by mouth once daily at bedtime Atorvastatin 40 mg tablet Discontinued 0 .ROUTE .COMPLEX 90 December 02, 2023 9:42am December 11, 2023 10:28am TAKE 1 TABLET BY MOUTH EVERYDAY AT BEDTIME Start: 10-22-2023 End: 12-02-2023 take 1 tablet by mouth once daily in the morning Atorvastatin 40 mg tablet Discontinued 40 MG PO Every morning October 27, 2023 11:00pm December 02, 2023 9:42am Start: 10-26-2020 End: 10-22-2023 take 1 tablet by mouth at bedtime Atorvastatin 10 mg tablet Discontinued 10 MG PO Bedtime December 30, 2020 11:00pm August 28, 2023 12:52pm azithromycin 250 mg oral tablet (20 sources) Macrolide Antimicrobial Start: 03-18-2022 Azithromycin 250 MG 2 tablet on the first day, then 1 tablet daily for 4 days Orally Once a day for 5 day(s) Mar, Active Start: 10-01-2020 End: 12-31-2020 take 1 tablet by mouth once daily Azithromycin 500 mg tablet Discontinued 500 MG PO Daily 3 September 30, 2020 11:00pm December 31, 2020 5:31am Start: 03-16-2019 End: 06-22-2019 Azithromycin 250 mg tablet Discontinued 250 MG PO Daily 2 March 16, 2019 12:00am June 22, 2019 8:40am next dose due 03/17 bumetanide 0.5 mg oral tablet (20 sources) Loop Diuretic Start: 07-21-2023 End: 02-05-2024 take 1 tablet by mouth twice daily Bumetanide 0.5 mg tablet Active 0 .ROUTE .COMPLEX 180 February 05, 2024 2:52pm TAKE 1 TABLET BY MOUTH TWICE A DAY Start: 10-01-2020 End: 07-21-2023 take 1 tablet by mouth twice daily Bumetanide 0.5 mg Tablet Discontinued 0.5 MG PO BID@0800,1600 60 30 September 30, 2020 11:00pm July 21, 2023 2:44pm Start: 05-17-2020 End: 09-27-2020 take 1 tablet by mouth twice daily Bumetanide 0.5 mg Tablet Discontinued 0.5 MG PO Twice daily May 17, 2020 12:00am September 27, 2020 12:12pm 24 hr buPROPion hydrochloride 150 mg extended release oral tablet (20 sources) Aminoketone Start: 12-24-2023 take 1 tablet by mouth once daily Bupropion Hcl 150 mg tablet extended release 24 hr Active 150 MG PO Daily December 23, 2023 11:00pm Start: 12-29-2017 End: 01-25-2018 take 1 tablet by mouth twice daily Bupropion Hcl 100 mg Tablet Extended Release 12 Hr Discontinued 100 MG PO BID@0800,1400 60 December 28, 2017 11:00pm January 25, 2018 7:28am Cpap (Continuous Positive rway Pressure) (14 sources) Start: 08-27-2023 Cpap (Continuo us Positive Airway Pressure) Active 0 .Route August 27, 2023 12:00am [facility] 2 liters oxygen bleed Start: 08-27-2023 Cpap (Continuo us Positive Airway Pressure) Active 0 .ROUTE August 27, 2023 12:00am [facility] 2 liters oxygen bleed Cpap (Continuous Positive rway Pressure) unit (1 source) Start: 08-27-2023 Cpap (Continuo us Positive Airway Pressure) unit Active 0 .Route August 26, 2023 11:00pm [facility] 2 liters oxygen bleed Bhimppmsozn-Yoleiiume-Iahwmi er (20 sources) Start: 10-28-2023 Fluticasone-Um eclidin-Vilanter (Trelegy Ellipta) 200-62.5-25 mcg blister with device Active 1 INH INHALATION every day at noon October 27, 2023 11:00pm Rinse after use. Dispense 3 inhalers Start: 10-28-2023 Fluticasone-Um eclidin-Vilanter (Trelegy Ellipta) 200-62.5-25 mcg blister with device Active 1 INH INHALATION every day at noon October 28, 2023 12:00am Rinse after use. Dispense 3 inhalers Start: 08-27-2023 End: 10-28-2023 Zhxchisoqto-Aekppiune-Thfvmm er (Trelegy Ellipta) 200-62.5-25 mcg blister with device Discontinued 1 INH INHALATION Daily 180 90 August 26, 2023 11:00pm October 28, 2023 7:21am Rinse after use. Dispense 3 inhalers Start: 08-27-2023 End: 10-28-2023 Nkqwkxhgysf-Cpevzjcvk-Qmshrw er (Trelegy Ellipta) 200-62.5-25 mcg blister with [...] INHALATION Twice daily November 03, 2019 12:00am gabapentin 300 mg oral capsule (1 source) Anti-epileptic Agent Start: 03-24-2024 take 1 capsule by mouth once daily Gabapentin 300 mg capsule Active 300 MG PO Daily March 24, 2024 12:00am ibuprofen 600 mg oral tablet (20 sources) Nonsteroidal Anti-inflammatory Drug Start: 06-19-2023 take 1 tablet by mouth three times daily at mealtime as needed Ibuprofen 600 mg tablet Active 0 .ROUTE .COMPLEX June 19, 2023 9:25am TAKE 1 TABLET BY MOUTH THREE TIMES A DAY WITH FOOD OR MILK NEEDED Start: 06-19-2023 take 1 tablet by rico th three times daily at mealtime as needed Ibuprofen Active 0 .ROUTE .COMPLEX June 19, 2023 10:25am TAKE 1 TABLET BY MOUTH THREE TIMES A DAY WITH FOOD OR MILK NEEDED Start: 06-18-2023 End: 06-19-2023 take 1 tablet by mouth three times daily at mealtime as needed Ibuprofen 600 mg tablet Discontinued MG PO Three times daily as needed June 18, 2023 12:00am June 19, 2023 9:25am FreeTextSig: TAKE 1 TABLET BY MOUTH THREE [...] Nov, Active Start: 11-03-2019 End: 09-27-2020 take 1 tablet by mouth three times daily Ibuprofen 800 mg tablet Discontinued 800 MG PO Three times daily November 02, 2019 11:00pm September 27, 2020 8:23am Start: 06-03-2018 End: 06-26-2018 take 1 tablet by mouth every four to six hours as needed for pain Ibuprofen 200 mg Tablet Discontinued 200 MG PO EVERY 4-6 HOURS as needed for Pain June 03, 2018 12:00am June 26, 2018 2:13pm ipratropium bromide 0.2 mg/ml inhalation solution (20 sources) Anticholinergic Start: 08-20-2023 End: 10-22-2023 Ipratropium Butler 0.02 % solution Active 0.5 MG INHALATION Every 8 hours as needed for shortness of breath or wheezing October 22, 2023 11:54am FreeTextSig: INHALE CONTENTS OF 1 VIAL PER NEBULIZER EVERY 8 HOURS FOR 30 DAYS*J44.1*; Note: Source Status: Not-TakingundefinedPRN; Refills: 2; Qty: 250 Milliliter; Provider: Shelly Berg ( ) Start: 08-20-2023 End: 10-22-2023 Ipratropium Butler Active 0 .5 MG INHALATION Every 8 hours October 22, 2023 12:54pm FreeTextSig: INHALE CONTENTS OF 1 VIAL PER NEBULIZER EVERY 8 HOURS FOR 30 DAYS*J44.1*; Note: Source Status: Not-Taking\PRN; Refills: 2; Qty: 250 Milliliter; Provider: Shelly Berg ( ) Start: 02-24-2022 take 2.5 mL by inhal ation every eight hours Ipratropium Butler 0.02 % 2.5 mL Inhalation every 8 hrs for 30 day(s) with albuterol neb Feb, Active Start: 06-28-2018 End: 09-27-2020 take 0.5 mg by inhalation four times daily as needed for wheezing Ipratropium Butler 0.02 % Solution Discontinued 0.5 MG INHALATION Four times daily - Respiratory as needed for shortness of breath or wheezing 0 March 16, 2019 2:22pm September 27, 2020 8:23am Start: 06-28-2018 End: 09-27-2020 take 0.5 mg by inhalation four times daily Ipratropium Butler Discontinued 0.5 MG INHALATION Four times daily [...] Feb, Active Start: 03-19-2018 End: 04-14-2018 take 1 tablet by mouth every twenty-four hours Levofloxacin 750 mg Tablet Discontinued 750 MG PO Q24H March 19, 2018 12:00am April 14, 2018 4:13pm levothyroxine sodium 0.025 mg oral tablet (20 sources) l-Thyroxine Start: 05-17-2020 End: 02-25-2024 take 1 tablet by mouth once daily in the morning Levothyroxine 25 mcg tablet Active 25 MCG PO Every morning February 25, 2024 10:43am Levothyroxine So dium 25 MCG TAKE 1 TABLET BY MOUTH EVERY DAY IN THE MORNING ON EMPTY STOMACH FOR 90 DAYS for 90 Active lisinopril 2.5 mg oral tablet (20 sources) Angiotensin Converting Enzyme Inhibitor Start: 12-03-2023 take 1 tablet by mouth once daily Lisinopril 2.5 mg tablet Active 0 .ROUTE .COMPLEX December 03, 2023 12:53pm TAKE 1 TABLET BY MOUTH EVERY DAY Start: 10-26-2020 End: 12-03-2023 take 1 tablet by mouth once daily Lisinopril 2.5 mg tablet Discontinued 2.5 MG PO Daily December 30, 2020 11:00pm July 17, 2023 6:54am meloxicam 15 mg oral tablet (1 source) Nonsteroidal Anti-inflammatory Drug Start: 03-24-2024 take 1 tablet by mouth once daily Meloxicam 15 mg tablet Active 15 MG PO Daily March 24, 2024 12:00am methylPREDNISolone 4 mg oral tablet (4 sources) Corticosteroid Start: 03-22-2021 Medrol (Dontrell) 4 MG as directed Orally for daily dose take half with breakfast half with dinner for 6 days Mar, Active 24 hr metoprolol succinate 25 mg extended release oral tablet (15 sources) beta-Adrenergic Jacinda Start: 10-22-2023 End: 10-28-2023 take 1 tablet by mouth once daily in the morning Metoprolol Succinate 25 mg tablet extended release 24 hr Active 25 MG PO Every morning October 27, 2023 11:00pm omeprazole 20 mg delayed release oral capsule (20 sources) Proton Pump Inhibitor Start: 02-26-2022 End: 03-07-2024 take 1 capsule by mouth once daily in the morning Omeprazole 20 mg capsule,delaye d release(DR/EC) Active 20 MG PO Every morning March 07, 2024 8:51am Oxygen (14 sources) Start: 08-27-2023 Oxygen Active 0 .Route August 27, 2023 12:00am 2 liters continuous [facility] Start: 08-27-2023 Oxygen Active 0 .ROUTE August 27, 2023 12:00am 2 liters continuous [facility] Oxygen unit (1 source) Start: 08-27-2023 Oxygen unit Ac tive 0 .Route August 26, 2023 11:00pm 2 liters continuous [facility] ozempic (0.25 or 0.5 mg/dose) 2 [...] release oral tablet (20 sources) Start: 07-21-2023 End: 03-07-2024 take 1 tablet by mouth twice daily Potassium Chloride 20 mEq tablet,ER particles/crystals Active 20 MEQ PO Twice daily 180 March 07, 2024 8:51am Start: 07-21-2023 End: 07-21-2023 take 1 tablet by mouth every twelve hours at mealtime Potassium Chloride 20 mEq tablet,ER particles/crystals Discontinued 20 MEQ PO Twice daily July 20, 2023 11:00pm July 21, 2023 2:44pm FreeTextSig: TAKE 1 TABLET BY MOUTH EVERY 12 HOURS WITH FOOD; Note: Source Status: Taking; Refills: 1; Qty: 180 Tablet; Provider: Shelly Berg ( ) Start: 06-14-2021 End: 07-21-2023 Potassium Chloride (Klor-Con M10) 10 mEq tablet,ER particles/crystals Discontinued 20 MEQ PO Twice daily 60 June 14, 2021 1:41pm July 21, 2023 2:38pm Start: 11-03-2019 End: 06-14-2021 Potassium Chloride (Klor-Con M10) 10 mEq tablet,ER particles/crystals Discontinued 20 MEQ PO Three times daily November 02, 2019 11:00pm June 14, 2021 1:41pm take 1 tablet by rico th every [...] times a day for 90 days Active predniSONE 20 mg oral tablet (20 sources) Start: 03-24-2024 Prednisone 20 mg tablet Active 20 MG PO As Directed March 24, 2024 12:00am 3 tabs x 3 days, then 2 tabs x 3 days, then 1 tab x 3 days Start: 07-28-2023 End: 08-27-2023 take 2 tablets by mouth once daily Prednisone 20 mg tablet Discontinued 40 MG PO daily 02 05July 27, 2023 11:00pm August 27, 2023 8:28am Start: 07-28-2023 End: 08-27-2023 take 40 mg by mouth once daily Prednisone Discontinued 40 MG PO daily 02 05July 28, 2023 12:00am August 27, 2023 9:28am Start: 02-26-2022 End: 07-27-2023 take 4 tablets by mouth once daily Prednisone 10 mg tablet Discontinued 10 MG PO Daily February 25, 2022 11:00pm July 27, 2023 1:37pm Take 4 pills (40mg) for 5 days 3 pills (30mg) for 5 days 2 pills (20mg) for 5 days 1 pill (10mg) for 5 days Start: 02-24-2022 take 2 tablets by mo [facility] every twenty-four hours predniSONE 20 MG 2 tablets Orally Once a day for 5 days Feb, Active Start: 02-07-2022 take 1 tablet by [place] every twenty-four hours predniSONE 10 MG 1 tablet Orally Once a day for 30 day(s) ER Feb, Active Start: 02-06-2022 End: 02-24-2022 Prednisone 10 mg tablet Discontinued 60 MG PO Daily February 05, 2022 11:00pm February 24, 2022 7:52pm administer with food or milk Start: 02-06-2022 End: 02-24-2022 take 60 mg by mouth once daily at mealtime Prednisone Discontinued 60 MG PO Daily February 06, 2022 12:00am February 24, 2022 8:52pm administer with food or milk Start: 11-22-2021 take 2 tablets by mo [facility] every twenty-four hours predniSONE 20 MG 2 tablets Orally Once a day for 5 days Nov, Active Start: 10-01-2020 End: 12-31-2020 take 2 tablets by mouth once daily Prednisone 20 mg Tablet Discontinued 40 MG PO Daily September 30, 2020 11:00pm December 31, 2020 5:32am Please contact the information source for Taper Schedule details. Start: 10-01-2020 End: 12-31-2020 take 40 mg by mouth once daily Prednisone Discontinued 40 MG PO Daily October 01, 2020 12:00am December 31, 2020 6:32am Start: 11-05-2019 End: 05-17-2020 Prednisone 10 mg tablet Discontinued 10 MG PO Daily November 04, 2019 11:00pm May 17, 2020 6:20pm Take 40mg for 3 days, then 30mg for 3 days, then 20mg for 3 days, then 10mg for 3 days and stop Start: 11-05-2019 End: 05-17-2020 Prednisone Discontinued 10 M G PO Daily November 05, 2019 12:00am May 17, 2020 7:20pm Take 40mg for 3 days, then 30mg for 3 days, then 20mg for 3 days, then 10mg for 3 days and stop Start: 03-16-2019 End: 06-22-2019 Prednisone 10 mg tablet Discontinued 10 MG PO Daily March 16, 2019 12:00am June 22, 2019 8:42am on 03/17/19 - 4tab x3day, then 3tab [...] 5 tablets by mouth once daily Prednisone 10 mg tablet Discontinued 10 MG PO Daily 6 June 28, 2018 12:00am July 03, 2018 12:00am July 04, 2018 12:02am 6 tabs on day 1, 5 tabs on day 2, 4 tabs on day 3, 3 tabs on day 4, 2 tabs on day 5, and 1 tab on the last day. Start: 03-19-2018 End: 04-14-2018 take 2 tablets by mouth once daily Prednisone 20 mg Tablet Discontinued 40 MG PO Daily March 19, 2018 12:00am April 14, 2018 4:13pm Please contact the information source for Taper Schedule details. Start: 03-19-2018 End: 04-14-2018 take 40 mg by mouth once daily Prednisone Discontinued 40 MG PO Daily March 19, 2018 1:00am April 14, 2018 5:13pm Start: 10-26-2017 End: 12-21-2017 take 2 tablets by mouth once daily in the morning Prednisone 20 mg tablet Discontinued 40 MG PO Every morning 10 October 25, 2017 11:00pm December 21, 2017 12:34pm administer with food or milk Start: 10-26-2017 End: 12-21-2017 take 40 mg by mouth once daily in the morning Prednisone Discontinued 40 MG PO Every morning 10 October 26, 2017 12:00am December 21, 2017 1:34pm administer with food or milk 0.25 mg, 0.5 mg dose 1.5 ml [...] 0 .ROUTE .COMPLEX 3 November 10, 2023 6:55am INJECT 0.5MG VIA SUBCUTANEOUS ROUTE ONCE WEEKLY 28 Start: 11-10-2023 inject 0.5 mg by sub cutaneous injection every week Semaglutide (Ozempic) 0.25 mg or 0.5 mg (2 mg/3 mL) pen injector Active 0 .ROUTE .COMPLEX 3 November 10, 2023 7:55am INJECT 0.5MG VIA SUBCUTANEOUS ROUTE ONCE WEEKLY 28 Start: 09-10-2023 End: 11-10-2023 inject 0.5 mg by subcutaneous injection every week Semaglutide 0.25 mg or 0.5 mg (2 mg/3 mL) pen injector Discontinued 0.5 MG SUBCUT every week September 10, 2023 12:00pm November 10, 2023 6:55am FreeTextSig: INJECT 0.5MG VIA SUBCUTANEOUS ROUTE ONCE WEEKLY; Note: Source Status: Taking; Refills: 5; Qty: 3 Milliliter; Provider: Shelly Berg ( ) Start: 09-10-2023 End: 11-10-2023 inject 0.5 mg [...] mg by subcutaneous injection every week Semaglutide 0.25 mg or 0.5 mg (2 mg/3 mL) pen injector Discontinued MG SUBCUT July 26, 2023 11:00pm September 10, 2023 12:00pm FreeTextSig: INJECT 0.5MG VIA SUBCUTANEOUS ROUTE ONCE [...] Milliliter; Provider: Shelly Berg ( ) topiramate 100 mg oral tablet (20 sources) Start: 03-24-2024 take 1 tablet by mouth once Topiramate 100 mg tablet Active 100 MG PO Once March 24, 2024 12:00am Start: 05-17-2020 take 1 tablet by rico th once daily in the morning Topiramate 25 mg tablet Active 25 MG PO Every morning May 17, 2020 12:00am Trelegy Ellipta 100-62.5-25 MCG/INH (5 sources) Start: 11-22-2021 take 1 puff(s) by inhalation once daily Trelegy Ellipta 100-62.5-25 MCG/INH 1 puff Inhalation Once a day for 30 day(s) samples given Nov, Active Completed/Discontinued Medications Medication Drug Class(es) Dates Sig (Normalized) Sig (Original) acetaminophen 325 mg oral tablet (20 sources) Start: 01-23-2017 End: 12-23-2017 take 2 tablets by mouth every four hours as needed for pain Acetaminophen (Tylenol) 325 mg Tablet Discontinued 650 MG PO Q4H as needed for Pain January 22, 2017 11:00pm December 23, 2017 12:10pm Albuterol Sulfate 90 mcg/actuation Hfa Aerosol Inhaler (1 source) Start: 06-27-2018 End: 03-16-2019 take 1 puff(s) by inhalation every four to six hours as needed for wheezing Albuterol Sulfate 90 mcg/actuation Hfa Aerosol Inhaler Discontinued 2 PUFF INHALATION EVERY 4-6 HOURS as needed for Shortness Of Breath Or Wheezing June 27, 2018 12:00am March 16, 2019 2:20pm benzonatate 100 mg oral capsule (20 sources) Non-narcotic Antitussive Start: 03-16-2019 End: 06-22-2019 Benzonatate 100 mg Capsule Discontinued 100 MG PO Three times daily March 16, 2019 12:00am June 22, 2019 8:41am take scheduled for the next 3-4 days, then may change to prn cough benztropine mesylate 1 mg oral tablet (20 sources) Anticholinergic, Antihistamine Start: 06-03-2018 End: 06-26-2018 take 1 tablet by mouth twice daily Benztropine 1 mg tablet Discontinued 1 MG PO Twice daily June 03, 2018 12:00am June 26, 2018 2:11pm caffeine 200 mg oral tablet (20 sources) Central Nervous System Stimulant, Methylxanthine Start: 01-23-2017 End: 12-23-2017 take 1 tablet by mouth twice daily as needed Caffeine (Vivarin) 200 mg Tablet Discontinued 200 MG PO Twice daily as needed for Drowsiness January 22, 2017 11:00pm December 23, 2017 12:10pm cephalexin 500 mg oral capsule (20 sources) Cephalosporin Antibacterial Start: 04-14-2018 End: 04-21-2018 take 1 capsule by mouth every twelve hours Cephalexin (Keflex) 500 mg capsule Discontinued 500 MG PO Q12H 14 April 14, 2018 12:00am April 20, 2018 12:00am April 21, 2018 12:02am Start: 10-26-2017 End: 12-21-2017 take 2 capsules by mouth twice daily Cephalexin (Keflex) 500 mg capsule Discontinued 1000 MG PO Twice daily 28 11October 25, 2017 11:00pm December 21, 2017 12:34pm 168 hr cloNIDine 0.38071 mg/hr transdermal system (20 sources) Central alpha-2 Adrenergic Agonist Start: 06-03-2018 End: 06-26-2018 Clonidine 0.1 mg/24 hr Patch Weekly Discontinued 1 PATCH TRANSDERML every week June 03, 2018 12:00am June 26, 2018 2:12pm diclofenac sodium 75 mg delayed release oral tablet (20 sources) Nonsteroidal Anti-inflammatory Drug Start: 05-17-2020 End: 06-12-2021 take 1 tablet by mouth twice daily Diclofenac Sodium 75 mg Tablet,Delayed Release (Dr/Ec) Discontinued 75 MG PO Twice daily May 17, 2020 12:00am June 12, 2021 12:29pm Diclofenac & Menthol-Camphor 75 & 3-3 MG & % (20 sources) Diclofenac & Menthol-Camphor 75 & 3-3 MG & % as directed Combination twice daily Not-Taking/PRN Diclofenac & Men thol-Camphor 75 & 3-3 MG & % as directed Combination twice daily Active dicyclomine hydrochloride 20 mg oral tablet (20 sources) Anticholinergic Start: 01-17-2021 End: 08-27-2023 take 1 tablet by mouth three times daily Dicyclomine 20 mg tablet Discontinued 20 MG PO Three times daily February 23, 2022 11:00pm August 27, 2023 8:28am diphenhydrAMINE hydrochloride 25 mg oral capsule (20 sources) Histamine-1 Receptor Antagonist Start: 09-27-2020 End: 12-31-2020 take 1 capsule by mouth three times daily as needed for muscle spasms Diphenhydramine Hcl (Banophen) 25 mg Capsule Discontinued 25 MG PO Three times daily as needed for Spasms September 26, 2020 11:00pm December 31, 2020 5:31am Start: 03-13-2019 End: 11-03-2019 take 1 tablet by mouth three times daily as needed Diphenhydramine Hcl (Banophen) 25 mg Tablet Discontinued 25 MG PO Three times daily as needed for dystonia March 13, 2019 12:00am November 03, 2019 12:14pm famotidine 40 mg oral tablet (20 sources) Histamine-2 Receptor Antagonist Start: 03-13-2019 End: 06-12-2021 take 1 tablet by mouth once daily at bedtime Famotidine (Pepcid) 40 mg Tablet Discontinued 40 MG PO Daily at bedtime March 13, 2019 12:00am June 12, 2021 12:29pm Fluticasone-Umecl idin-Vilanter (20 sources) Anticholinergic, Corticosteroid, beta2-Adrenergic Agonist Start: 02-24-2022 End: 08-27-2023 Fluticasone-Umeclid in-Vilanter (Trelegy Ellipta) 100-62.5-25 mcg blister with device Discontinued 1 INH INHALATION Daily February 23, 2022 11:00pm August 27, 2023 8:55am Start: 02-24-2022 End: 08-27-2023 Mplgtlhpwek-Xtzbgncry-Puqnhf er (Trelegy Ellipta) 100-62.5-25 mcg blister with device [...] take 1 puff(s) by inhalation once daily William Carlson 100-62.5-25 MCG/ACT 1 pu ff Inhalation Once a day samples given Nov, Active furosemide 20 mg oral tablet (20 sources) Loop Diuretic Start: 11-03-2019 End: 05-17-2020 take 1 tablet by mouth once daily Furosemide (Lasix) 20 mg tablet Discontinued 20 MG PO Daily November 02, 2019 11:00pm May 17, 2020 6:16pm 12 hr guaiFENesin 600 mg extended release oral tablet (20 sources) Start: 10-01-2020 End: 12-31-2020 take 2 tablets by mouth twice daily, then take 1 tablet by mouth every twelve hours Guaifenesin (Mucinex) 600 mg Tablet Extended Release 12hr Discontinued 1200 MG PO Twice daily 28 11September 30, 2020 11:00pm December 31, 2020 5:32am Start: 03-16-2019 End: 06-22-2019 take 2 tablets by mouth three to four times daily as needed for cough, then take 1 tablet by mouth every twelve hours as needed for cough Guaifenesin (Mucinex) 600 mg Tablet Extended Release 12hr Discontinued 1200 MG PO Twice daily March 16, 2019 12:00am June 22, 2019 8:41am take for next 3-4 days, then may change to prn cough/ congestion Start: 06-28-2018 End: 10-04-2018 take 2 tablets by mouth twice daily as needed for congestion, then take 1 tablet by mouth every twelve hours as needed for congestion Guaifenesin (Mucinex) 600 mg Tablet Extended Release 12hr Discontinued 1200 MG PO Twice daily as needed for congestion June 28, 2018 10:24am October 04, 2018 2:30pm may Therapeutic interchange as needed for insurance coverage. Start: 06-03-2018 End: 06-26-2018 take 1 tablet by mouth every twelve hours, then take 1 tablet by mouth every twelve hours Guaifenesin (Mucinex) 1,200 mg Tablet Extended Release 12hr Discontinued 1200 MG PO Q12H June 03, 2018 12:00am June 26, 2018 2:13pm hydrOXYzine pamoate 25 mg oral capsule (20 sources) Antihistamine Start: 01-25-2018 End: 04-14-2018 take 1 capsule by mouth twice daily Hydroxyzine Pamoate 25 mg Capsule Discontinued 25 MG PO Twice daily 60 March 19, 2018 2:25pm April 14, 2018 4:13pm lurasidone hydrochloride 40 mg oral tablet (20 sources) Atypical Antipsychotic Start: 03-13-2019 End: 05-17-2020 take 1 tablet by mouth once daily Lurasidone (Latuda) 40 mg Tablet Discontinued 40 MG PO Daily March 13, 2019 12:00am May 17, 2020 6:17pm metFORMIN hydrochloride 500 mg oral tablet (20 sources) Biguanide Start: 12-31-2020 End: 02-24-2022 take 2 tablets by mouth twice daily Metformin 500 mg tablet Discontinued 1000 MG PO Twice daily December 31, 2020 5:16am February 24, 2022 7:48pm Start: 12-31-2020 End: 02-24-2022 take 1000 mg by mouth twice daily Metformin Discontinued 1000 MG PO Twice daily December 31, 2020 6:16am February 24, 2022 8:48pm Start: 10-26-2020 End: 03-07-2024 take 1 tablet by mouth twice daily Metformin 1,000 mg tablet Discontinued 1000 MG PO Twice daily February 23, 2022 11:00pm July 21, 2023 2:44pm Start: 10-01-2020 End: 12-31-2020 take 1 tablet by mouth twice daily Metformin 500 mg Tablet Discontinued 500 MG PO Twice daily 60 October 01, 2020 9:48am December 31, 2020 5:16am Start: 05-17-2020 End: 10-01-2020 take 1 tablet by mouth once daily Metformin 500 mg Tablet Discontinued 500 MG PO Daily May 17, 2020 12:00am October 01, 2020 9:48am metOLazone 2.5 mg oral tablet (20 sources) Thiazide-like Diuretic Start: 06-24-2021 take 1 tablet by mouth once daily as needed metOLazone 2.5 MG 1 tablet Orally Once a day PRN swelling for 30 day(s) Jun, Not-Taking Start: 09-27-2020 End: 06-14-2021 take 1 tablet by mouth once daily Metolazone 2.5 mg tablet Discontinued 2.5 MG PO Daily September 26, 2020 11:00pm June 14, 2021 1:41pm Start: 05-17-2020 End: 05-17-2020 Metolazone 2.5 mg tablet Discontinued TABLET May 17, 2020 12:00am May 17, 2020 7:59pm metroNIDAZOLE 500 mg oral tablet (14 sources) Nitroimidazole Antimicrobial Start: 06-19-2021 take 1 tablet by mouth every twelve hours metroNIDAZOLE 500 MG 1 tablet Orally bid for 10 day(s) Jun, Not-Taking mirtazapine 30 mg oral tablet (20 sources) Start: 01-25-2018 End: 04-14-2018 Mirtazapine 30 mg Tablet Discontinued 45 MG PO Daily at bedtime March 19, 2018 2:25pm April 14, 2018 4:13pm Start: 01-25-2018 End: 04-14-2018 take 45 mg by mouth once daily at bedtime Mirtazapine Discontinued 45 MG PO Daily at bedtime March 19, 2018 3:25pm April 14, 2018 5:13pm Start: 12-29-2017 End: 01-25-2018 take 1 tablet by mouth once daily at bedtime Mirtazapine 30 mg tablet Discontinued 30 MG PO Daily at bedtime December 28, 2017 11:00pm January 25, 2018 7:28am Mometasone-Formoterol (Dulera) 200-5 mcg/actuation HFA aerosol inhaler [...] mouth every twelve hours as needed for pain Naproxen (Naprosyn) 500 mg tablet Discontinued 500 MG PO Q12H as needed for pain February 17, 2017 11:00pm December 23, 2017 12:10pm administer with food or milk 24 hr nicotine 0.292 mg/hr transdermal system (20 sources) Cholinergic Nicotinic Agonist Start: 03-16-2019 End: 06-22-2019 Nicotine 7 mg/24 hr Patch 24 Hour Discontinued 1 EACH TRANSDERML Daily March 16, 2019 12:00am June 22, 2019 8:41am Start: 03-16-2019 End: 06-22-2019 Nicotine Discontinued 1 EACH TRANSDERML Daily March 16, 2019 1:00am June 22, 2019 9:41am Start: 01-25-2018 End: 03-19-2018 apply 1 dose transdermal route every twenty-four hours Nicotine 21 mg/24 hr Patch 24 Hour Discontinued 1 EACH TRANSDERML Daily January 24, 2018 11:00pm March 19, 2018 2:19pm Start: 01-25-2018 End: 03-19-2018 Nicotine Discontinued 1 EACH TRANSDERML Daily January 25, 2018 12:00am March 19, 2018 3:19pm Start: 12-29-2017 End: 01-13-2018 apply 1 dose transdermal route every twenty-four hours Nicotine 21 mg/24 hr Patch 24 Hour Discontinued 1 EACH TRANSDERML Daily December 28, 2017 11:00pm January 13, 2018 1:28pm Start: 12-29-2017 End: 01-13-2018 Nicotine Discontinued 1 EACH TRANSDERML Daily December 29, 2017 12:00am January 13, 2018 2:28pm OLANZapine 10 mg oral tablet (20 sources) Atypical Antipsychotic Start: 01-25-2018 End: 04-14-2018 take 1 tablet by mouth twice daily Olanzapine 10 mg tablet Discontinued 10 MG PO Twice daily March 19, 2018 2:25pm April 14, 2018 4:13pm ondansetron 4 mg disintegrating oral tablet (20 sources) Serotonin-3 Receptor Antagonist Start: 06-08-2021 End: 02-24-2022 take 1 tablet by mouth every six hours as needed for nausea Ondansetron 4 mg Tablet,Disintegrat ing Discontinued 4 MG PO Q6H as needed for Nausea June 12, 2021 12:00am February 24, 2022 7:52pm OXcarbazepine 600 mg oral tablet (20 sources) Anti-epileptic Agent Start: 06-26-2018 End: 05-17-2020 take 1 tablet by mouth twice daily Oxcarbazepine (Trileptal) 600 mg Tablet Discontinued 600 MG PO Twice daily June 26, 2018 12:00am May 17, 2020 6:17pm 24 hr oxybutynin chloride 5 mg extended release oral tablet (20 sources) Cholinergic Muscarinic Antagonist Start: 11-03-2019 End: 05-17-2020 take 1 tablet by mouth once daily Oxybutynin Chloride (Ditropan Xl) 5 mg tablet extended release 24hr Discontinued 5 MG PO Daily November 02, 2019 11:00pm May 17, 2020 6:20pm pantoprazole 40 mg delayed release oral tablet (20 sources) Proton Pump Inhibitor Start: 01-17-2021 End: 02-24-2022 take 1 tablet by mouth once daily Pantoprazole (Protonix) 40 mg tablet,delayed release (DR/EC) Discontinued 40 MG PO Daily June 14, 2021 12:00am February 24, 2022 7:52pm prazosin 5 mg oral capsule (20 sources) alpha-Adrenergic Jacinda Start: 03-13-2019 End: 05-17-2020 take 1 capsule by mouth once daily at bedtime Prazosin (Minipress) 5 mg Capsule Discontinued 5 MG PO Daily at bedtime March 13, 2019 12:00am May 17, 2020 6:20pm Start: 06-26-2018 End: 05-17-2020 take 1 capsule by mouth once daily in the morning Prazosin (Minipress) 2 mg Capsule Discontinued 2 MG PO Every morning June 26, 2018 12:00am May 17, 2020 6:20pm Start: 06-03-2018 End: 06-26-2018 take 1 capsule by mouth twice daily Prazosin 2 mg Capsule Discontinued 2 MG PO Twice daily June 03, 2018 12:00am June 26, 2018 2:13pm prochlorperazine 10 mg oral tablet (20 sources) Phenothiazine Start: 06-14-2021 End: 02-24-2022 take 1 tablet by mouth every eight hours as needed for nausea and vomiting Prochlorperazine Maleate (Compazine) 10 mg tablet Discontinued 10 MG PO Q8H as needed for nausea and vomiting June 14, 2021 12:00am February 24, 2022 7:52pm traZODone hydrochloride 100 mg oral tablet (20 sources) Serotonin Reuptake Inhibitor Start: 06-26-2018 End: 10-04-2018 take 1 tablet by mouth once daily at bedtime Trazodone 100 mg Tablet Discontinued 100 MG PO Daily at bedtime June 26, 2018 12:00am October 04, 2018 2:31pm Start: 01-25-2018 End: 04-14-2018 take 1 tablet by mouth once daily at bedtime Trazodone 100 mg Tablet Discontinued 100 MG PO Daily at bedtime March 19, 2018 2:25pm April 14, 2018 4:13pm triamcinolone acetonide 40 mg/ml injectable suspension (20 [...] knee] Chronic Other aftercare (1 source) Other residential (current) drug therapy; Translations: [OTH CUSTODIAL CURRENT DRUG THERAPY] Onset: 2 Episodic Other aftercare (1 source) 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; Translations: [[employer] USE ORAL HYPOGLYCEMIC DX] Onset: 2 Episodic Other aftercare (15 sources) Long-term current use of inhaled steroid; Translations: [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] 08-27-2023 Episodic Other aftercare (14 sources) 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; Translations: [Long-term (current) use of steroids] 08-27-2023 Episodic Other gastrointestinal disorders (20 sources) Dysphagia; Translations: [Dysphagia, unspecified] Episodic Other hereditary and degenerative nervous system conditions (20 sources) Dystonia; Translations: [Dystonia, unspecified] 10-26-2018 Chronic Other infections; including parasitic (20 sources) H/O: liver disease; Translations: [Personal history of other infectious and parasitic diseases] 06-28-2018 Episodic Comment on above: hep c Other injuries and conditions due to external [...] classified] 02-24-2022 Episodic Other lower respiratory disease (16 sources) Other nonspecific abnormal finding of lung field; Translations: [Other nonspecific abnormal finding of lung field] Onset: 2 Episodic Other lower respiratory disease (15 sources) Multiple nodules of lung; Translations: [Other [...] Chronic Other nutritional; endocrine; and metabolic disorders (8 sources) Morbid (severe) obesity due to excess [...] (adult) (pediatric)] 08-27-2023 Chronic Residual codes; unclassified (15 sources) Obstructive sleep apnea (adult) (pediatric); Translations: [Obstructive sleep apnea (adult)(pediatric)] Chronic Residual codes; unclassified (20 sources) Tobacco dependence syndrome; Translations: [Tobacco use] Episodic Residual codes; unclassified (20 sources) Early satiety; Translations: [Early satiety] 06-13-2021 Episodic Respiratory failure; insufficiency; arrest (adult) (20 sources) Ewidy-cv-xchgzyq respiratory failure; Translations: [Acute and chronic respiratory [...] 12-11-2023 HbA1c (Bld) [Mass fraction] 6.5 % [facility] Activated partial thrombopla stin time (aPTT) in platelet poor plasma by coagulation aOrdered By: Sanya Valadez on 10-28-2023 aPTT Coag (PPP) [Time] 35.2 s 25.1-36.5 [facility] Comment on above: A hematocrit value g reater than 55% may lead to inaccurate results in coagulation testing. Patients having hematocrit values >55% require a special collection tube for coagulation studies. Please contact the laboratory at [phone] for redraw instructions. Automated basophil %Ordered By: Sanya Valadez on 10-28-2023 Basophils/100 WBC (Bld) 1.3 % . [facility] Comment on above: Performed By: #### B UN, LIPID, CREAT, CBC, LYTES, PP #### [facility] [address] [place] [address] Automated basophil countOrde red By: Sanya Valadez on 10-28-2023 Basophils (Bld) [#/Vol] 0.1 10*3/uL 0.0-0.2 [facility] Comment on above: Result Comment: PERF ORMED BY: [place] [address] PATHOLOGIST STONE RUBBER SKYLER CLARK M.D. Performed By: #### B UN, LIPID, CREAT, CBC, LYTES, PP #### [facility] [address] Automated blood monocyte cou ntOrdered By: Sanya Valadez on 10-28-2023 Monocytes (Bld) [#/Vol] 0.4 10*3/uL 0.0-0.8 [facility] Comment on above: Performed By: #### B UN, LIPID, CREAT, CBC, LYTES, PP #### [facility] [address] [place] [address] Automated eosinophil %Ordere d By: Sanya Valadez on 10-28-2023 Eosinophils/100 WBC (Bld) 1.7 % . [facility] Comment on above: Performed By: #### B UN, LIPID, CREAT, CBC, LYTES, PP #### [facility] [address] Automated eosinophil countOr dered By: Sanya Valadez on 10-28-2023 Eosinophils (Bld) [#/Vol] 0.1 10*3/uL 0.0-0.45 [facility] Comment on above: Performed By: #### B UN, LIPID, CREAT, CBC, LYTES, PP #### [facility] [address] Automated monocyte %Ordered By: Sanya Valadez on 10-28-2023 Monocytes/100 WBC (Bld) 5.0 % . [facility] Comment on above: Performed By: #### B UN, LIPID, CREAT, CBC, LYTES, PP #### [facility] [address] [place] [address] Automated neutrophil %Ordere d By: Sanya Valadez on 10-28-2023 Neutrophils/100 WBC (Bld) 67.0 % . [facility] Comment on above: Performed By: #### B UN, LIPID, CREAT, CBC, LYTES, PP #### [facility] [address] [place] [address] [place] Carbon dioxide, total [Moles /volume] in Serum or PlasmaOrdered By: aSnya Valadez on 10-28-2023 CO2 [Moles/Vol] 28.0 mmol/L 21.0-31.0 [facility] Comment on above: Performed By: #### B UN, LIPID, CREAT, CBC, LYTES, PP ####[facility] [address] Chloride [Moles/volume] in S jade or PlasmaOrdered By: Sanya Valadez on 10-28-2023 Chloride [Moles/Vol] 106 mmol/L 98-107 [facility] Comment on above: Performed By: #### B UN, LIPID, CREAT, CBC, LYTES, PP ####[facility] [id number] [place] [id number] [facility] Cholesterol [Mass/volume] in Serum or PlasmaOrdered By: Sanya Valadez on 10-28-2023 Cholesterol [Mass/Vol] 169 mg/dL 140-200 [facility] Comment on above: Chol less than 200 m g/dl low riskChol 201-239 mg/dl borderline riskChol 240 mg/dl and greater high risk Result Comment: Chol less than 200 mg/dl low risk Chol 201-239 mg/dl borderline risk Chol 240 mg/dl and greater high risk Performed By: #### B UN, LIPID, CREAT, CBC, LYTES, PP ####[facility] [address] Cholesterol in LDL Calc [Mas s/Vol]Ordered By: Sanya Valadez on 10-28-2023 Cholesterol in LDL [Mass/Vol] 94 mg/dL 0-100 [facility] Comment on above: LDL ATP III CLASSIFI CATIONLDL less than 100 mg/dL OptimalLDL 100-129 mg/dL Near or above optimalLDL 130-159 mg/dL Borderline highLDL 160-189 mg/dL HighLDL greater than 189 mg/dL Very high Cholesterol in VLDL Calc [Ma ss/Vol]Ordered By: Sanya Valadez on 10-28-2023 Cholesterol in VLDL [Mass/Vol] 27 mg/dL [facility] Coagulation Profileon 2023 aPTT Coag (Bld) [Time] 35.2 s Normal 25.1-36.5 [facility] Comment on above: Result Comment: A he matocrit value greater than 55% may lead to inaccurate results in coagulation testing. Patients having hematocrit values >55% require a special collection tube for coagulation studies. Please contact the laboratory at [phone] for redraw instructions. PERFORMED BY: [address] [address] PATHOLOGIST STONE RUBBER SKYLER CLARK M.D. Performed By: #### B UN, LIPID, CREAT, CBC, LYTES, PP #### [facility] [address] Complete Blood Count Auto Di ffon 10-28-2023 Mean Corpuscular HGB Conc 32.2 g/dL Normal 32.0-35.0 [facility] Comment on above: Performed By: #### B UN, LIPID, CREAT, CBC, LYTES, PP #### [address] NRBC% 0.1 /100{WBC} Normal 0-0.5 [facility] Comment on above: Performed By: #### B UN, LIPID, CREAT, CBC, LYTES, PP #### [address] Creatinineon 10-28-2023 GFR/1.73 sq M.predicted MDRD (S/P/Bld) [Vol rate/Area] mL/min/{1.73_m2} Normal [facility] Comment on above: Performed By: #### B UN, LIPID, CREAT, CBC, LYTES, PP ####[address] Creatinine [Mass/volume] in Serum or PlasmaOrdered By: Sanya Valadez on 10-28-2023 Creatinine [Mass/Vol] 0.97 mg/dL 0.60-1.20 [facility] Comment on above: Performed By: #### B UN, LIPID, CREAT, CBC, LYTES, PP ####[address] ECG 12 lead ECGon 10-28-2023 ECG 12 lead ECG [facility] [place] [address] [place] [address] Electrocardiograph Report Signed Patient: Cynthia Lozano MR#: [id number] : 1965 Acct:[id number] Age/Sex: 57 / F ADM Date: 10/28/23 Loc: PS Room: Type: [facility] Attending Dr: Sanya Valadez MD Ordering Provider: Sanya Valadez MD Date of Service: 10/28/23 ECG/ECG 12 lead ECG: [facility] PST Copies to: Test Reason : Blood [...] (197) on 10/28/2023 12:48:20 PM Referred By: RORY Electronically Signed By:CRISTAL GEORGE MD [facility] Transcribed By: MUS Signed By Rian George MD 10/28/23 1248 Normal [facility] Erythrocyte distribution wid th [Ratio] by Automated countOrdered By: Sanya Valadez on 10-28-2023 Erythrocyte distribution width (RBC) [Ratio] 16.0 % High 11.9-15.3 [facility] Comment on above: Performed By: #### B UN, LIPID, CREAT, CBC, LYTES, PP #### [facility] [address] [place] [address] Erythrocytes [#/volume] in B lood by Automated countOrdered By: Sanya Valadez on 10-28-2023 RBC (Bld) [#/Vol] 5.22 10*6/uL High 3.60-5.00 [facility] Comment on above: Performed By: #### B UN, LIPID, CREAT, CBC, LYTES, PP #### [facility] [address] [place] [address] [place] Hematocrit [Volume Fraction] of Blood by Automated countOrdered By: Sanya Valadez on 10-28-2023 Hematocrit (Bld) [Volume fraction] 39.5 % 34.0-46.4 [facility] Comment on above: Performed By: #### B UN, LIPID, CREAT, CBC, LYTES, PP #### [facility] [address] [place] [address] [place] Hemoglobin [Mass/volume] in BloodOrdered By: Sanya Valadez on 10-28-2023 Hemoglobin (Bld) [Mass/Vol] 12.7 g/dL 11.8-15.4 [facility] Comment on above: Performed By: #### B UN, LIPID, CREAT, CBC, LYTES, PP #### [address] INR in Platelet poor plasma by Coagulation assayOrdered By: Sanya Valadez on 10-28-2023 INR Coag (PPP) [Relative time] 1.0 {INR} [facility] Comment on above: INR Therapeutic Rang e [...] UN, LIPID, CREAT, CBC, LYTES, PP #### [address] Leukocytes [#/volume] correc ceci for nucleated erythrocytes in Blood by Automated counOrdered By: Sanya Valadez on 10-28-2023 WBC corrected for nucl RBC Auto (Bld) [#/Vol] 8.9 10*3/uL 3.8-11.6 [facility] Leukocytes [#/volume] in Blo od by Automated countOrdered By: Sanya Valadez on 10-28-2023 WBC (Bld) [#/Vol] 8.9 10*3/uL 3.8-11.6 [facility] Comment on above: Performed By: #### B UN, LIPID, CREAT, CBC, LYTES, PP #### [facility] [address] [place] [id number] [facility] Lipid Panelon 10-28-2023 LDL Cholesterol,Calculated 94 mg/dL Normal 0-100 [facility] Comment on above: Result Comment: LDL ATP III CLASSIFICATION LDL less than 100 mg/dL Optimal LDL 100-129 mg/dL Near or above optimal LDL 130-159 mg/dL Borderline high LDL 160-189 mg/dL High LDL greater than 189 mg/dL Very high Performed By: #### B UN, LIPID, CREAT, CBC, LYTES, PP ####[facility] Triglyceride w/Reflex 137 mg/dL Normal 0-149 [facility] Comment on above: Result Comment: TRIG ATP III CLASSIFICATION TRIG less than 150 mg/dL Normal TRIG 150-199 mg/dL Borderline high TRIG 200-500 mg/dL High TRIG greater than 500 mg/dL Very high Standard traceable to the Center for Disease Conrtrol and Prevention (CDC) test method. Performed By: #### B UN, LIPID, CREAT, CBC, LYTES, PP ####[address] VLDL CHOLESTEROL 27 mg/dL Normal The [facility] Comment on above: Performed By: #### B UN, LIPID, CREAT, CBC, LYTES, PP ####[facility] [place] [address] [place] Lymphocytes [#/volume] in Bl ood by Automated countOrdered By: Sanya Valadez on 10-28-2023 Lymphocytes (Bld) [#/Vol] 2.2 10*3/uL 1.00-4.8 [facility] Comment on above: Performed By: #### B UN, LIPID, CREAT, CBC, LYTES, PP #### [place] [address] [place] Lymphocytes/100 leukocytes i n Blood by Automated countOrdered By: Sanya Valadez on 10-28-2023 Lymphocytes/100 WBC (Bld) 25.0 % . [facility] Comment on above: Performed By: #### B UN, LIPID, CREAT, CBC, LYTES, PP #### [address] [place] [address] [place] MCH [Entitic mass] by Automa ceci countOrdered By: Sanya Valadez on 10-28-2023 MCH (RBC) [Entitic mass] 24.4 pg Low 24.7-34.3 [facility] Comment on above: Performed By: #### B UN, LIPID, CREAT, CBC, LYTES, PP #### [facility] [address] [place] [address] MCHC Auto (RBC) [Mass/Vol]Or dered By: Sanya Valadez on 10-28-2023 MCHC (RBC) [Mass/Vol] 32.2 g/dL 32.0-35.0 [facility] MCV [Entitic volume] by Auto mated countOrdered By: Sanya Valadez on 10-28-2023 MCV (RBC) [Entitic vol] 75.6 fL Low 80-100 [facility] Comment on above: Performed By: #### B UN, LIPID, CREAT, CBC, LYTES, PP #### [facility] [address] [place] [address] Neutrophils [#/volume] in Bl ood by Automated countOrdered By: Sanya Valadez on 10-28-2023 Neutrophils (Bld) [#/Vol] 6.0 10*3/uL 1.8-7.7 [facility] Comment on above: Performed By: #### B UN, LIPID, CREAT, CBC, LYTES, PP #### [facility] [address] [place] [address] No Panel InformationOrdered By: Sanya Valadez on 10-28-2023 Estimated GFR (CKD-EPI) > 60.0 mL/Min [facility] Creatinine Clearance (Chem N/A [facility] Nucleated erythrocytes [Pres ence] in Blood by Automated countOrdered By: Sanya Valadez on 10-28-2023 Nucleated RBC Auto Ql (Bld) 0.1 /100{WBC} 0-0.5 [facility] Platelet mean volume [Entiti c volume] in Blood by Automated countOrdered By: Sanya Valadez on 06-26-2024 Platelet mean volume (Bld) [Entitic vol] 7.7 fL 6.3-10.7 [facility] Comment on above: Performed By: #### B UN, LIPID, CREAT, CBC, LYTES, PP #### [facility] [address] Platelets [#/volume] in Bloo d by Automated countOrdered By: Sanya Valadez on 10-28-2023 Platelets (Bld) [#/Vol] 370 10*3/uL 150-450 [facility] Comment on above: Performed By: #### B UN, LIPID, CREAT, CBC, LYTES, PP #### [facility] [address] Potassium [Moles/volume] in Serum or PlasmaOrdered By: Sanya Valadez on 10-28-2023 Potassium [Moles/Vol] 5.0 mmol/L 3.5-5.1 [facility] Comment on above: Performed By: #### B UN, LIPID, CREAT, CBC, LYTES, PP ####[facility] [address] Prothrombin time (PT)Ordered By: Sanya Valadez on 10-28-2023 PT Coag (PPP) [Time] 11.7 s 9.0-12.9 [facility] Comment on above: A hematocrit value g reater than 55% may lead to inaccurate results in coagulation testing. Patients having hematocrit values >55% require a special collection tube for coagulation studies. Please contact the laboratory at [phone] for redraw instructions. Result Comment: A he matocrit value greater than 55% may lead to inaccurate results in coagulation testing. Patients having hematocrit values >55% require a special collection tube for coagulation studies. Please contact the laboratory at [phone] for redraw instructions. Performed By: #### B UN, LIPID, CREAT, CBC, LYTES, PP #### [facility] [address] Serum or plasma anion gap de terminationOrdered By: Sanya Valadez on 10-28-2023 Anion gap [Moles/Vol] 12.0 mmol/L 6.0-15.0 [facility] Comment on above: Performed By: #### B UN, LIPID, CREAT, CBC, LYTES, PP ####[address] Serum or plasma high density lipoprotein (HDL) cholesterol measurementOrdered By: Sanya Valadez on 10-28-2023 Cholesterol in HDL [Mass/Vol] 48 mg/dL 23-92 [facility] Comment on above: HDL CHOL ATP-III CLA SSIFICATION Cardiovascular RiskHDL > or equal to 60 mg/dL LOWHDL < 40 mg/dL HIGH Result Comment: HDL CHOL ATP-III CLASSIFICATION Cardiovascular Risk HDL > or equal to 60 mg/dL LOW HDL < 40 mg/dL HIGH Performed By: #### B UN, LIPID, CREAT, CBC, LYTES, PP ####[address] Serum or plasma total choles terol/high density lipoprotein (HDL) cholesterol mass ratOrdered By: Sanya Valadez on 10-28-2023 Cholesterol.total/Chol esterol in HDL [Mass ratio] 3.5 {ratio} <5.0 [facility] Comment on above: Result Comment: PERF ORMED BY: [facility] [address] [place] [address] PATHOLOGIST STONE RUBBER SKYLER CLARK M.D. Performed By: #### B UN, LIPID, CREAT, CBC, LYTES, PP ####[address] Sodium [Moles/volume] in Ser um or PlasmaOrdered By: Sanya Valadez on 10-28-2023 Sodium [Moles/Vol] 141 mmol/L 136-145 [facility] Comment on above: Performed By: #### B UN, LIPID, CREAT, CBC, LYTES, PP ####[address] Triglyceride [Mass/volume] i n Serum or PlasmaOrdered By: Sanya Valadez on 10-28-2023 Triglyceride [Mass/Vol] 137 mg/dL 0-149 [facility] Comment on above: TRIG ATP III CLASSIF ICATIONTRIG less than 150 mg/dL NormalTRIG 150-199 mg/dL Borderline highTRIG 200-500 mg/dL High TRIG greater than 500 mg/dL Very highStandard traceable to the Center for Disease Conrtrol and Prevention (CDC) test method. Urea nitrogen [Mass/volume] in Serum or PlasmaOrdered By: Sanya Valadez on 10-28-2023 Urea nitrogen [Mass/Vol] 29 mg/dL High 11-25 [facility] Comment on above: Performed By: #### B UN, LIPID, CREAT, CBC, LYTES, PP ####[id number] NM darci perf SPECT rest stron 09-29-2023 NM darci perf SPECT rest str [facility] [address] [place] [address] Nuclear Medicine Report Signed Patient: Cynthia Lozano MR#: [id number] 1502 : 1965 Acct:[id number] Age/Sex: 57 / F ADM Date: 09/25/23 Loc: Room: Type: [facility] Attending Dr: Nirav Trujillo DO Copies to: MD Nirav Burdick DO Ordering Provider: Nirav Trujillo DO Date of Service: 09/25/23 NM/NM darci perf SPECT rest str: Shortness of breath, chest pain NUCLEAR MYOCARDIAL PERFUSION DATE OF PROCEDURE: 09/29/2023 ATTENDING RIVER GUIDE: Dr. Sanya Valadez REQUESTING PHYSICIAN: Dr. Trujillo [...] Sanya Valadez M.D.09/29/2023 6:28 PM Dictation Location: [place] [address] Transcribed By: GLORIA 09/29/231827 Dictated By: Sanya Valadez MD 09/29/231822 Signed By: 09/29/231827 Normal [facility] lung screeningon 09-24-19 CT lung screening [facility] [address] [place] [address] CT Scan Report Signed Patient: Cynthia Lozano MR#: [id number] 1502 : 1965 Acct:[id number] Age/Sex: 57 / F ADM Date: 09/24/23 [...] Saavedra Jr., D.O.09/24/2023 3:20 PM Dictation Location: [place] [address] Transcribed By: [facility] 09/24/23 1520 Dictated By: Momo Saavedra Jr, DO 09/24/23 1513 Signed By: 09/24/23 1520 Normal [facility] FPG ECG *OFFICE ONLY*on FPG ECG *OFFICE ONLY* [facility] [address] [place] [address] Electrocardiograph Report Signed Patient: Cynthia Lozano MR#: [id number] 1502 : 1965 Acct:[id number] Age/Sex: 57 / F ADM Date: 09/10/23 Loc: [facility] Room: Type: [facility] Attending Dr: Sanya Valadez MD Ordering [...] axis shifted right Confirmed by Sanya Valadez ([id number]) on 09/11/2023 12:58:03 PM Referred By: Electronically Signed By:Sanya Valadez Transcribed By: MUS Signed By Sanya Valadez MD 09/11/23 1258 Normal [facility] Alanine aminotransferase [En zymatic activity/volume] in Serum or PlasmaOrdered By: Morena Bravo on 08-27-2023 ALT [Catalytic activity/Vol] 17 U/L Normal 7-52 [facility] Comment on above: Performed By: #### C BC, LIPID, CMP #### [address] Albumin [Mass/volume] in Ser um or Plasma by Bromocresol green (BCG) dye binding methoOrdered By: Morena Bravo on 08-27-2023 Albumin BCG dye [Mass/Vol] 4.4 g/dL 3.5-5.7 [facility] Alkaline phosphatase [Enzyma tic activity/volume] in Serum or PlasmaOrdered By: Morena Bravo on 08-27-2023 ALP [Catalytic activity/Vol] 101 U/L Normal 34-104 [facility] Comment on above: Performed By: #### C BC, LIPID, CMP #### [address] Aspartate aminotransferase [ Enzymatic activity/volume] in Serum or PlasmaOrdered By: Morena Bravo on 08-27-2023 AST [Catalytic activity/Vol] 13 U/L Normal 13-39 [facility] Comment on above: Performed By: #### C BC, LIPID, CMP #### [address] Automated basophil %Ordered By: Morena Bravo on 08-27-2023 Basophils/100 WBC (Bld) 0.5 % Normal . [facility] Comment on above: Performed By: #### C BC, LIPID, CMP #### [address] Automated basophil countOrde red By: Morena Bravo on 08-27-2023 Basophils (Bld) [#/Vol] 0.0 10*3/uL Normal 0.0-0.2 [facility] Comment on above: Result Comment: PERF ORMED BY: [place] [address] PATHOLOGIST STONE RUBBER SKYLER CLARK M.D. Performed By: #### C BC, LIPID, CMP #### [address] Automated blood monocyte cou ntOrdered By: Morena Dailyr on 08-27-2023 Monocytes (Bld) [#/Vol] 0.4 10*3/uL Normal 0.0-0.8 [facility] Comment on above: Performed By: #### C BC, LIPID, CMP #### [address] Automated eosinophil %Ordere d By: Morena Schwerer on 08-27-2023 Eosinophils/100 WBC (Bld) 1.9 % Normal . [facility] Comment on above: Performed By: #### C BC, LIPID, CMP #### [address] Automated eosinophil countOr dered By: Morena Schwmichaelr on 08-27-2023 Eosinophils (Bld) [#/Vol] 0.2 10*3/uL Normal 0.0-0.45 [facility] Comment on above: Performed By: #### C BC, LIPID, CMP #### [address] Automated monocyte %Ordered By: Morena Quinnerer on 08-27-2023 Monocytes/100 WBC (Bld) 5.0 % Normal . [facility] Comment on above: Performed By: #### C BC, LIPID, CMP #### [address] Automated neutrophil %Ordere d By: Morena Schwerer on 08-27-2023 Neutrophils/100 WBC (Bld) 61.8 % Normal . [facility] Comment on above: Performed By: #### C BC, LIPID, CMP #### [address] Bilirubin.total [Mass/volume ] in Serum or PlasmaOrdered By: Morena Schwerer on 08-27-2023 Bilirubin [Mass/Vol] 0.3 mg/dL Normal 0.3-1.0 [facility] Comment on above: Performed By: #### C BC, LIPID, CMP #### [facility] [address] [place] [address] [place] Calcium [Mass/volume] in Ser um or PlasmaOrdered By: Morena Schwerer on 08-27-2023 Calcium [Mass/Vol] 10.5 mg/dL High 8.6-10.3 [facility] Comment on above: Performed By: #### C BC, LIPID, CMP #### [facility] [address] Carbon dioxide, total [Moles /volume] in Serum or PlasmaOrdered By: Morena Schwerer on 08-27-2023 CO2 [Moles/Vol] 28.5 mmol/L Normal 21.0-31.0 [facility] Comment on above: Performed By: #### C BC, LIPID, CMP #### [facility] [address] [place] [address] [place] Chloride [Moles/volume] in S jade or PlasmaOrdered By: Morena Schwerer on 08-27-2023 Chloride [Moles/Vol] 101 mmol/L Normal 98-107 [facility] Comment on above: Performed By: #### C BC, LIPID, CMP #### [facility] [address] Cholesterol [Mass/volume] in Serum or PlasmaOrdered By: Morena Schwerer on 08-27-2023 Cholesterol [Mass/Vol] 186 mg/dL Normal 140-200 [facility] Comment on above: Chol less than 200 m g/dl low riskChol 201-239 mg/dl borderline riskChol 240 mg/dl and greater high risk Result Comment: Chol less than 200 mg/dl low risk Chol 201-239 mg/dl borderline risk Chol 240 mg/dl and greater high risk Performed By: #### C BC, LIPID, CMP #### [facility] [address] [place] [address] [place] Cholesterol in LDL Calc [Mas s/Vol]Ordered By: Morena Schwerer on 08-27-2023 Cholesterol in LDL [Mass/Vol] 108 mg/dL High 0-100 [facility] Comment on above: LDL ATP III CLASSIFI CATIONLDL less than 100 mg/dL OptimalLDL 100-129 mg/dL Near or above optimalLDL 130-159 mg/dL Borderline highLDL 160-189 mg/dL HighLDL greater than 189 mg/dL Very high Cholesterol in VLDL Calc [Ma ss/Vol]Ordered By: Morena Bravo on 08-27-2023 Cholesterol in VLDL [Mass/Vol] 31 mg/dL [facility] Complete Blood Count Auto Di ffon 08-27-2023 Mean Corpuscular HGB Conc 32.0 g/dL Normal 32.0-35.0 [facility] Comment on above: Performed By: #### C BC, LIPID, CMP #### [facility] [address] NRBC% 0.1 /100{WBC} Normal 0-0.5 [facility] Comment on above: Performed By: #### C BC, LIPID, CMP #### [facility] [address] [place] [address] Comprehensive Metabolic Pane xochilt 08-27-2023 Albumin [Mass/Vol] 4.4 g/dL Normal 3.5-5.7 [facility] Comment on above: Performed By: #### C BC, LIPID, CMP #### [address] GFR/1.73 sq M.predicted MDRD (S/P/Bld) [Vol rate/Area] mL/min/{1.73_m2} Normal [facility] Comment on above: Performed By: #### C BC, LIPID, CMP #### [address] Creatinine [Mass/volume] in Serum or PlasmaOrdered By: Morena Bravo on 08-27-2023 Creatinine [Mass/Vol] 0.86 mg/dL Normal 0.60-1.20 [facility] Comment on above: Performed By: #### C BC, LIPID, CMP #### [address] Erythrocyte distribution wid th [Ratio] by Automated countOrdered By: Morena Bravo on 08-27-2023 Erythrocyte distribution width (RBC) [Ratio] 16.3 % High 11.9-15.3 [facility] Comment on above: Performed By: #### C BC, LIPID, CMP #### [facility] [address] Erythrocytes [#/volume] in B lood by Automated countOrdered By: Morena Bravo on 08-27-2023 RBC (Bld) [#/Vol] 5.09 10*6/uL High 3.60-5.00 [facility] Comment on above: Performed By: #### C BC, LIPID, CMP #### [facility] [address] Glucose [Mass/volume] in Ser um or PlasmaOrdered By: Morena Bravo on 08-27-2023 Glucose [Mass/Vol] 91 mg/dL Normal 70-100 [facility] Comment on above: ADA recommended refe rence rangeRandom Glucose Reference Range is dependent on time and content of last meal. Glucose of more than 200 mg/dL in a nonstressed, ambulatory subject supports the diagnosis of Diabetes Mellitus. Result Comment: [place] om Glucose Reference Range is dependent on time and content of last meal. Glucose of more than 200 mg/dL in a nonstressed, ambulatory subject supports the diagnosis of Diabetes Mellitus. ADA recommended reference range Performed By: #### C BC, LIPID, CMP #### [facility] [address] [place] [address] [place] Hematocrit [Volume Fraction] of Blood by Automated countOrdered By: Morena Bravo on 08-27-2023 Hematocrit (Bld) [Volume fraction] 39.2 % Normal 34.0-46.4 [facility] Comment on above: Performed By: #### C BC, LIPID, CMP #### [facility] [address] Hemoglobin [Mass/volume] in BloodOrdered By: Morena Bravo on 08-27-2023 Hemoglobin (Bld) [Mass/Vol] 12.6 g/dL Normal 11.8-15.4 [facility] Comment on above: Performed By: #### C BC, LIPID, CMP #### [facility] [address] Leukocytes [#/volume] correc ceci for nucleated erythrocytes in Blood by Automated counOrdered By: Morena Bravo on 08-27-2023 WBC corrected for nucl RBC Auto (Bld) [#/Vol] 8.4 10*3/uL 3.8-11.6 [facility] Leukocytes [#/volume] in Blo od by Automated countOrdered By: Morena Bravo on 08-27-2023 WBC (Bld) [#/Vol] 8.4 10*3/uL Normal 3.8-11.6 [facility] Comment on above: Performed By: #### C BC, LIPID, CMP #### [address] Lipid Panelon 08-27-2023 LDL Cholesterol,Calculated 108 mg/dL High 0-100 [facility] Comment on above: Result Comment: LDL ATP III CLASSIFICATION LDL less than 100 mg/dL Optimal LDL 100-129 mg/dL Near or above optimal LDL 130-159 mg/dL Borderline high LDL 160-189 mg/dL High LDL greater than 189 mg/dL Very high Performed By: #### C BC, LIPID, CMP #### [address] Triglyceride w/Reflex 157 mg/dL High 0-149 [facility] Comment on above: Result Comment: TRIG ATP III CLASSIFICATION TRIG less than 150 mg/dL Normal TRIG 150-199 mg/dL Borderline high TRIG 200-500 mg/dL High TRIG greater than 500 mg/dL Very high Standard traceable to the Center for Disease Conrtrol and Prevention (CDC) test method. Performed By: #### C BC, LIPID, CMP #### [facility] [address] VLDL CHOLESTEROL 31 mg/dL Normal [facility] Comment on above: Performed By: #### C BC, LIPID, CMP #### [facility] [address] Lymphocytes [#/volume] in Bl ood by Automated countOrdered By: Morena Bravo on 08-27-2023 Lymphocytes (Bld) [#/Vol] 2.6 10*3/uL Normal 1.00-4.8 [facility] Comment on above: Performed By: #### C BC, LIPID, CMP #### [address] Lymphocytes/100 leukocytes i n Blood by Automated countOrdered By: Morena Bravo on 08-27-2023 Lymphocytes/100 WBC (Bld) 30.8 % Normal . [facility] Comment on above: Performed By: #### C BC, LIPID, CMP #### [address] MCH [Entitic mass] by Automa ceci countOrdered By: Morena Bravo on 08-27-2023 MCH (RBC) [Entitic mass] 24.6 pg Low 24.7-34.3 [facility] Comment on above: Performed By: #### C BC, LIPID, CMP #### [address] MCHC Auto (RBC) [Mass/Vol]Or dered By: Morena Bravo on 08-27-2023 MCHC (RBC) [Mass/Vol] 32.0 g/dL 32.0-35.0 [facility] MCV [Entitic volume] by Auto mated countOrdered By: Morena Bravo on 08-27-2023 MCV (RBC) [Entitic vol] 76.9 fL Low 80-100 [facility] Comment on above: Performed By: #### C BC, LIPID, CMP #### [address] Neutrophils [#/volume] in Bl ood by Automated countOrdered By: Morena Bravo on 08-27-2023 Neutrophils (Bld) [#/Vol] 5.2 10*3/uL Normal 1.8-7.7 [facility] Comment on above: Performed By: #### C BC, LIPID, CMP #### [address] [place] [address] [place] No Panel InformationOrdered By: Morena Bravo on 08-27-2023 Estimated GFR (CKD-EPI) > 60.0 mL/Min [facility] Creatinine Clearance (Chem N/A [facility] Nucleated erythrocytes [Pres ence] in Blood by Automated countOrdered By: Morena Bravo on 08-27-2023 Nucleated RBC Auto Ql (Bld) 0.1 /100{WBC} 0-0.5 [facility] Platelet mean volume [Entiti c volume] in Blood by Automated countOrdered By: Morena Bravo on 08-27-2023 Platelet mean volume (Bld) [Entitic vol] 8.1 fL Normal 6.3-10.7 [facility] Comment on above: Performed By: #### C BC, LIPID, CMP #### [address] Platelets [#/volume] in Bloo d by Automated countOrdered By: Morena Bravo on 08-27-2023 Platelets (Bld) [#/Vol] 386 10*3/uL Normal 150-450 [facility] Comment on above: Performed By: #### C BC, LIPID, CMP #### [address] Potassium [Moles/volume] in Serum or PlasmaOrdered By: Mornea Bravo on 08-27-2023 Potassium [Moles/Vol] 5.1 mmol/L Normal 3.5-5.1 [facility] Comment on above: Performed By: #### C BC, LIPID, CMP #### [place] [address] [place] Protein [Mass/volume] in Ser um or PlasmaOrdered By: Morena Bravo on 08-27-2023 Protein [Mass/Vol] 6.8 g/dL Normal 6.4-8.9 [facility] Comment on above: Performed By: #### C BC, LIPID, CMP #### [address] Serum globulin measurement b y calculation (mass/volume)Ordered By: Morena Bravo on 08-27-2023 Globulin (S) [Mass/Vol] 2.4 g/dL Normal [facility] Comment on above: Performed By: #### C BC, LIPID, CMP #### [facility] [address] [place] [address] Serum or plasma albumin/glob ulin mass ratioOrdered By: Morena Bravo on 08-27-2023 Albumin/Globulin [Mass ratio] 1.8 {ratio} Normal [facility] Comment on above: Performed By: #### C BC, LIPID, CMP #### [address] Serum or plasma anion gap de terminationOrdered By: Morena Bravo on 08-27-2023 Anion gap [Moles/Vol] 13.6 mmol/L Normal 6.0-15.0 [facility] Comment on above: Performed By: #### C BC, LIPID, CMP #### [address] Serum or plasma high density lipoprotein (HDL) cholesterol measurementOrdered By: Morena Bravo on 08-27-2023 Cholesterol in HDL [Mass/Vol] 47 mg/dL Normal 23-92 [facility] Comment on above: HDL CHOL ATP-III CLA SSIFICATION Cardiovascular RiskHDL > or equal to 60 mg/dL LOWHDL < 40 mg/dL HIGH Result Comment: HDL CHOL ATP-III CLASSIFICATION Cardiovascular Risk HDL > or equal to 60 mg/dL LOW HDL < 40 mg/dL HIGH Performed By: #### C BC, LIPID, CMP #### [facility] [address] [place] [address] Serum or plasma total choles terol/high density lipoprotein (HDL) cholesterol mass ratOrdered By: Morena Bravo on 08-27-2023 Cholesterol.total/Chol esterol in HDL [Mass ratio] 4.0 {ratio} Normal <5.0 [facility] Comment on above: Result Comment: PERF ORMED BY: [place] [address] PATHOLOGIST STONE RUBBER SKYLER CLARK M.D. Performed By: #### C BC, LIPID, CMP #### [facility] [address] Sodium [Moles/volume] in Ser um or PlasmaOrdered By: Morena Bravo on 08-27-2023 Sodium [Moles/Vol] 138 mmol/L Normal 136-145 [facility] Comment on above: Performed By: #### C BC, LIPID, CMP #### [facility] [address] [place] [id number] [facility] Triglyceride [Mass/volume] i n Serum or PlasmaOrdered By: Morena Bravo on 08-27-2023 Triglyceride [Mass/Vol] 157 mg/dL High 0-149 [facility] Comment on above: TRIG ATP III CLASSIF ICATIONTRIG less than 150 mg/dL NormalTRIG 150-199 mg/dL Borderline highTRIG 200-500 mg/dL High TRIG greater than 500 mg/dL Very highStandard traceable to the Center for Disease Conrtrol and Prevention (CDC) test method. Urea nitrogen [Mass/volume] in Serum or PlasmaOrdered By: Morena Bravo on 08-27-2023 Urea nitrogen [Mass/Vol] 34 mg/dL High 7-25 [facility] Comment on above: Performed By: #### C BC, LIPID, CMP #### [address] [address] [facility] HbA1c HPLC (Bld) [Mass fract ion]on 07-27-2023 HbA1c (Bld) [Mass fraction] 6.2 % [facility] A1C HEMOGLOBINon 04-13-2023 HbA1c (Bld) [Mass fraction] 6.3 % [employer] Other HbA1c (Bld) [Mass fraction]o n 04-13-2023 A1C HEMOGLOBIN [employer] Other MR lumbar spine wo conon MR lumbar spine wo con [facility] [address] [place] [address] XRay Report Signed Patient: Cynthia Lozano MR#: [id number] 1502 : 1965 Acct:[id number] Age/Sex: 57 / F ADM Date: 04/07/23 Loc: MR Room: Type: [facility] Attending Dr: Morena Bravo DO Copies to: Morena Bravo DO Ordering Provider: Morena Bravo DO Date of Service: 04/07/23 MR/MR lumbar spine wo con: Radicular low back pain ([id number]) XR/XR pre/post mri xray: M54.10 CLINICAL DATA: [...] Marimar Dodd M.D.04/07/2023 4:26 PM Dictation Location: [place] [address] Transcribed By: [facility] 04/07/23 1626 Dictated By: Marimar Dodd MD 04/07/23 1615 Signed By: 04/07/23 1623 Normal [facility] A1C HEMOGLOBINon 12-12-2022 HbA1c (Bld) [Mass fraction] 5.9 % [employer] Other Complete Blood Count Auto Di ffon 12-12-2022 Basophils (Bld) [#/Vol] 0.215602190 10*3/uL Normal 0.0-0.2 10*3/uL [employer] Other Basophils/100 WBC (Bld) 1.300 % . % [employer] Other Eosinophils (Bld) [#/Vol] 0.434762369 10*3/uL Normal 0.0-0.45 10*3/uL [employer] Other Eosinophils/100 WBC (Bld) 2.200 % . % [employer] Other Erythrocyte distribution width (RBC) [Ratio] 16.000 % High 11.9-15.3 % [employer] Other Hematocrit (Bld) [Volume fraction] 39.800 % Normal 34.0-46.4 % [employer] Other Hemoglobin (Bld) [Mass/Vol] 13.620091 g/dL Normal 11.8-15.4 g/dL [employer] Other Lymphocytes (Bld) [#/Vol] 2.623767505 10*3/uL Normal 1.00-4.8 10*3/uL [employer] Other Lymphocytes/100 WBC (Bld) 23.000 % . % [employer] Other MCH (RBC) [Entitic mass] 25.4000 pg Normal 24.7-34.3 pg [employer] Other MCV (RBC) [Entitic vol] 77.7000 fL Low 80-100 fL [employer] Other Monocytes (Bld) [#/Vol] 0.139447374 10*3/uL Normal 0.0-0.8 10*3/uL [employer] Other Monocytes/100 WBC (Bld) 4.400 % . % [employer] Other Neutrophils (Bld) [#/Vol] 6.178792456 10*3/uL Normal 1.8-7.7 10*3/uL [employer] Other Neutrophils/100 WBC (Bld) 69.100 % . % [employer] Other Platelet mean volume (Bld) [Entitic vol] 8.2000 fL Normal 6.3-10.7 fL [employer] Other WBC (Bld) [#/Vol] 8.801259282 10*3/uL Normal 3.8 -11.6 10*3/uL [employer] Other Complete Blood Count Auto Diff 8.9 10*3/uL Normal 3.8-11.6 10*3/uL [employer] Other Complete Blood Count Auto Diff 32.7 g/dL Normal 32.0-35.0 g/dL [employer] Other Complete Blood Count Auto Diff 0.1 /100{WBC} Normal 0-0.5 /100{WBC} [employer] Other Basophils (Bld) [#/Vol] 0.1 10*3/uL Normal 0.0-0.2 [facility] Comment on above: Order Comment: Reaso n for Exam Asthma-COPD overlap syndrome;Type 2 diabetes mellitus withou Result Comment: PERF ORMED BY: [facility] [place] [address] PATHOLOGIST STONE RUBBER SKYLER CLARK M.D. Performed By: #### L IPID, CMP, T4F, CBC, TSH3 ####[place] [id number] [facility] Basophils/100 WBC (Bld) 1.3 % Normal . [facility] Comment on above: Order Comment: Reaso n for Exam Asthma-COPD overlap syndrome;Type 2 diabetes mellitus withou Performed By: #### L IPID, CMP, T4F, CBC, TSH3 ####[place] [id number] [place] Eosinophils (Bld) [#/Vol] 0.2 10*3/uL Normal 0.0-0.45 [facility] Comment on above: Order Comment: Reaso n for Exam Asthma-COPD overlap syndrome;Type 2 diabetes mellitus withou Performed By: #### L IPID, CMP, T4F, CBC, TSH3 ####[address] [address] [facility] Eosinophils/100 WBC (Bld) 2.2 % Normal . [facility] Comment on above: Order Comment: Reaso n for Exam Asthma-COPD overlap syndrome;Type 2 diabetes mellitus withou Performed By: #### L IPID, CMP, T4F, CBC, TSH3 ####[address] [address] [place] Erythrocyte distribution width (RBC) [Ratio] 16.0 % High 11.9-15.3 [facility] Comment on above: Order Comment: Reaso n for Exam Asthma-COPD overlap syndrome;Type 2 diabetes mellitus withou Performed By: #### L IPID, CMP, T4F, CBC, TSH3 ####[place] [id number] [place] Hematocrit (Bld) [Volume fraction] 39.8 % Normal 34.0-46.4 [facility] Comment on above: Order Comment: Reaso n for Exam Asthma-COPD overlap syndrome;Type 2 diabetes mellitus withou Performed By: #### L IPID, CMP, T4F, CBC, TSH3 ####[address] Hemoglobin (Bld) [Mass/Vol] 13.0 g/dL Normal 11.8-15.4 [facility] Comment on above: Order Comment: Reaso n for Exam Asthma-COPD overlap syndrome;Type 2 diabetes mellitus withou Performed By: #### L IPID, CMP, T4F, CBC, TSH3 ####[address] Lymphocytes (Bld) [#/Vol] 2.0 10*3/uL Normal 1.00-4.8 [facility] Comment on above: Order Comment: Reaso n for Exam Asthma-COPD overlap syndrome;Type 2 diabetes mellitus withou Performed By: #### L IPID, CMP, T4F, CBC, TSH3 ####[address] Lymphocytes/100 WBC (Bld) 23.0 % Normal . [facility] Comment on above: Order Comment: Reaso n for Exam Asthma-COPD overlap syndrome;Type 2 diabetes mellitus withou Performed By: #### L IPID, CMP, T4F, CBC, TSH3 ####[place] [id number] [facility] MCH (RBC) [Entitic mass] 25.4 pg Normal 24.7-34.3 The [facility] Comment on above: Order Comment: Reaso n for Exam Asthma-COPD overlap syndrome;Type 2 diabetes mellitus withou Performed By: #### L IPID, CMP, T4F, CBC, TSH3 ####[place] [id number] [facility] MCV (RBC) [Entitic vol] 77.7 fL Low 80-100 The [facility] Comment on above: Order Comment: Reaso n for Exam Asthma-COPD overlap syndrome;Type 2 diabetes mellitus withou Performed By: #### L IPID, CMP, T4F, CBC, TSH3 ####[address] Mean Corpuscular HGB Conc 32.7 g/dL Normal 32.0-35.0 The [facility] Comment on above: Order Comment: Reaso n for Exam Asthma-COPD overlap syndrome;Type 2 diabetes mellitus withou Performed By: #### L IPID, CMP, T4F, CBC, TSH3 ####[place] [id number] [facility] Monocytes (Bld) [#/Vol] 0.4 10*3/uL Normal 0.0-0.8 The [facility] Comment on above: Order Comment: Reaso n for Exam Asthma-COPD overlap syndrome;Type 2 diabetes mellitus withou Performed By: #### L IPID, CMP, T4F, CBC, TSH3 ####[address] Monocytes/100 WBC (Bld) 4.4 % Normal . [facility] Comment on above: Order Comment: Reaso n for Exam Asthma-COPD overlap syndrome;Type 2 diabetes mellitus withou Performed By: #### L IPID, CMP, T4F, CBC, TSH3 ####[address] Neutrophils (Bld) [#/Vol] 6.1 10*3/uL Normal 1.8-7.7 The [facility] Comment on above: Order Comment: Reaso n for Exam Asthma-COPD overlap syndrome;Type 2 diabetes mellitus withou Performed By: #### L IPID, CMP, T4F, CBC, TSH3 ####[place] [id number] [facility] Neutrophils/100 WBC (Bld) 69.1 % Normal . The [facility] Comment on above: Order Comment: Reaso n for Exam Asthma-COPD overlap syndrome;Type 2 diabetes mellitus withou Performed By: #### L IPID, CMP, T4F, CBC, TSH3 ####[place] [id number] [facility] NRBC% 0.1 /100{WBC} Normal 0-0.5 The [facility] Comment on above: Order Comment: Reaso n for Exam Asthma-COPD overlap syndrome;Type 2 diabetes mellitus withou Performed By: #### L IPID, CMP, T4F, CBC, TSH3 ####[place] [id number] [facility] Platelet mean volume (Bld) [Entitic vol] 8.2 fL Normal 6.3-10.7 The [facility] Comment on above: Order Comment: Reaso n for Exam Asthma-COPD overlap syndrome;Type 2 diabetes mellitus withou Performed By: #### L IPID, CMP, T4F, CBC, TSH3 ####[address] Platelets (Bld) [#/Vol] 394 10*3/uL Normal 150-450 [facility] Other Comment on above: Order Comment: Reaso n for Exam Asthma-COPD overlap syndrome;Type 2 diabetes mellitus withou Performed By: #### L IPID, CMP, T4F, CBC, TSH3 ####[address] RBC (Bld) [#/Vol] 5.13 10*6/uL High 3.60-5.00 [facility] Other Comment on above: Order Comment: Reaso n for Exam Asthma-COPD overlap syndrome;Type 2 diabetes mellitus withou Performed By: #### L IPID, CMP, T4F, CBC, TSH3 ####[place] [id number] [facility] WBC (Bld) [#/Vol] 8.9 10*3/uL Normal 3.8-11.6 The [facility] Comment on above: Order Comment: Reaso n for Exam Asthma-COPD overlap syndrome;Type 2 diabetes mellitus withou Performed By: #### L IPID, CMP, T4F, CBC, TSH3 ####[place] [id number] [facility] Comprehensive Metabolic Pane xochilt 12-12-2022 Albumin [Mass/Vol] 4.263078 g/dL Normal 3.5-5.7 g/dL [facility] Other Bilirubin [Mass/Vol] 0.4684591 mg/dL Normal 0.3- 1.0 mg/dL [facility] Other Calcium [Mass/Vol] 10.2112147 mg/dL High 8.6-1 0.3 mg/dL [facility] Other CO2 [Moles/Vol] 31.73956933 mmol/L High 21.0-3 1.0 mmol/L [facility] Other Creatinine [Mass/Vol] 0.34082503 mg/dL Normal 0. 60-1.20 mg/dL [facility] Other Potassium [Moles/Vol] 5.47334730 mmol/L Normal 3 .5-5.1 mmol/L [facility] Other Protein [Mass/Vol] 7.063567 g/dL Normal 6.4-8.9 g/dL [facility] Other Comprehensive Metabolic Panel 2.5 g/dL [facility] Other Albumin [Mass/Vol] 4.6 g/dL Normal 3.5-5.7 The [facility] Comment on above: Order Comment: Reaso n for Exam Asthma-COPD overlap syndrome;Type 2 diabetes mellitus withou FASTING. JKW Performed By: #### L IPID, CMP, T4F, CBC, TSH3 ####[facility] [id number] [place] [id number] [facility] Albumin/Globulin [Mass ratio] 1.8 {ratio} Normal [facility] Other Comment on above: Order Comment: Reaso n for Exam Asthma-COPD overlap syndrome;Type 2 diabetes mellitus withou FASTING. JKW Performed By: #### L IPID, CMP, T4F, CBC, TSH3 ####[address] [address] [facility] ALP [Catalytic activity/Vol] 130 U/L High 34-104 [facility] Other Comment on above: Order Comment: Reaso n for Exam Asthma-COPD overlap syndrome;Type 2 diabetes mellitus withou FASTING. JKW Performed By: #### L IPID, CMP, T4F, CBC, TSH3 ####[address] [address] [facility] ALT [Catalytic activity/Vol] 17 U/L Normal 7-52 [facility] Other Comment on above: Order Comment: Reaso n for Exam Asthma-COPD overlap syndrome;Type 2 diabetes mellitus withou FASTING. JKW Performed By: #### L IPID, CMP, T4F, CBC, TSH3 ####[place] [id number] [facility] Anion gap [Moles/Vol] 12.5 mmol/L Normal 6.0-15.0 [facility] Comment on above: Order Comment: Reaso n for Exam Asthma-COPD overlap syndrome;Type 2 diabetes mellitus withou FASTING. JKW Performed By: #### L IPID, CMP, T4F, CBC, TSH3 ####[place] [id number] [facility] AST [Catalytic activity/Vol] 12 U/L Low 13-39 [facility] Other Comment on above: Order Comment: Reaso n for Exam Asthma-COPD overlap syndrome;Type 2 diabetes mellitus withou FASTING. JKW Performed By: #### L IPID, CMP, T4F, CBC, TSH3 ####[place] [id number] [facility] Bilirubin [Mass/Vol] 0.3 mg/dL Normal 0.3-1.0 The [facility] Comment on above: Order Comment: Reaso n for Exam Asthma-COPD overlap syndrome;Type 2 diabetes mellitus withou FASTING. JKW Performed By: #### L IPID, CMP, T4F, CBC, TSH3 ####[place] [id number] [facility] Calcium [Mass/Vol] 10.4 mg/dL High 8.6-10.3 The [facility] Comment on above: Order Comment: Reaso n for Exam Asthma-COPD overlap syndrome;Type 2 diabetes mellitus withou FASTING. JKW Performed By: #### L IPID, CMP, T4F, CBC, TSH3 ####[address] [address] [facility] Chloride [Moles/Vol] 99 mmol/L Normal 98-107 [facility] Other Comment on above: Order Comment: Reaso n for Exam Asthma-COPD overlap syndrome;Type 2 diabetes mellitus withou FASTING. JKW Performed By: #### L IPID, CMP, T4F, CBC, TSH3 ####[address] [address] [facility] CO2 [Moles/Vol] 31.5 mmol/L High 21.0-31.[address] [facility] Comment on above: Order Comment: Reaso n for Exam Asthma-COPD overlap syndrome;Type 2 diabetes mellitus withou FASTING. JKW Performed By: #### L IPID, CMP, T4F, CBC, TSH3 ####[place] [id number] [facility] Creatinine [Mass/Vol] 0.96 mg/dL Normal 0.60-1.20 The [facility] Comment on above: Order Comment: Reaso n for Exam Asthma-COPD overlap syndrome;Type 2 diabetes mellitus withou FASTING. JKW Performed By: #### L IPID, CMP, T4F, CBC, TSH3 ####[address] [address] [place] GFR/1.73 sq M.predicted MDRD (S/P/Bld) [Vol rate/Area] mL/min/{1.73_m2} Normal [place] [facility] Other Comment on above: Order Comment: Reaso n for Exam Asthma-COPD overlap syndrome;Type 2 diabetes mellitus withou FASTING. JKW Performed By: #### L IPID, CMP, T4F, CBC, TSH3 ####[facility] [place] [address] [facility] Globulin (S) [Mass/Vol] 2.5 g/dL Normal [facility] Comment on above: Order Comment: Reaso n for Exam Asthma-COPD overlap syndrome;Type 2 diabetes mellitus withou FASTING. JKW Performed By: #### L IPID, CMP, T4F, CBC, TSH3 ####[place] [id number] [place] [address] [facility] Glucose [Mass/Vol] 92 mg/dL Normal 70-100 [facility] Other Comment on above: Order Comment: Reaso n for Exam Asthma-COPD overlap syndrome;Type 2 diabetes mellitus withou FASTING. JKW Result Comment: [place] Glucose Reference Range is dependent on time and content of last meal. Glucose of more than 200 mg/dL in a nonstressed, ambulatory subject supports the diagnosis of Diabetes Mellitus. ADA recommended reference range Performed By: #### L IPID, CMP, T4F, CBC, TSH3 ####[place] [id number] [place] [address] [facility] Potassium [Moles/Vol] 5.0 mmol/L Normal 3.5-5.1 The [facility] Comment on above: Order Comment: Reaso n for Exam Asthma-COPD overlap syndrome;Type 2 diabetes mellitus withou FASTING. JKW Performed By: #### L IPID, CMP, T4F, CBC, TSH3 ####[place] [id number] [place] [address] [facility] Protein [Mass/Vol] 7.1 g/dL Normal 6.4-8.9 [facility] Comment on above: Order Comment: Reaso n for Exam Asthma-COPD overlap syndrome;Type 2 diabetes mellitus withou FASTING. JKW Performed By: #### L IPID, CMP, T4F, CBC, TSH3 ####[facility] [place] [address] [facility] Sodium [Moles/Vol] 138 mmol/L Normal 136-145 [employer] [facility] Other Comment on above: Order Comment: Reaso n for Exam Asthma-COPD overlap syndrome;Type 2 diabetes mellitus withou FASTING. JKW Performed By: #### L IPID, CMP, T4F, CBC, TSH3 ####[facility] [id number] [place] [address] [facility] Urea nitrogen [Mass/Vol] 29 mg/dL High 7-25 [facility] Other Comment on above: Order Comment: Reaso n for Exam Asthma-COPD overlap syndrome;Type 2 diabetes mellitus withou FASTING. JKW Performed By: #### L IPID, CMP, T4F, CBC, TSH3 ####[facility] [id number] [place] [id number] [facility] Free T4 (Free Thyroxine)on 0 12-12-2022 Free T4 [Mass/Vol] 0.85 ng/dL Normal 0.61-1.12 [facility] Comment on above: Order Comment: Reaso n for Exam Asthma-COPD overlap syndrome;Type 2 diabetes mellitus withou FASTING. JKW Performed By: #### L IPID, CMP, T4F, CBC, TSH3 ####[facility] [id number] [place] [address] [facility] HbA1c (Bld) [Mass fraction]o n 12-12-2022 A1C HEMOGLOBIN [facility] [employer] Other Lipid Panelon 12-12-2022 Cholesterol in LDL Elph Qn 103 mg/dL High 0-100 mg/dL [facility] Other Lipid Panel 122 mg/dL Normal 0-149 mg/dL [facility] Other Lipid Panel 24 mg/dL [facility] Other Cholesterol [Mass/Vol] 171 mg/dL Normal 140-200 No [address] [facility] Other Comment on above: Order Comment: Reaso n for Exam Asthma-COPD overlap syndrome;Type 2 diabetes mellitus withou FASTING. JKW Result Comment: Chol less than 200 mg/dl low risk Chol 201-239 mg/dl borderline risk Chol 240 mg/dl and greater high risk Performed By: #### L IPID, CMP, T4F, CBC, TSH3 ####[facility] [id number] [place] [address] [place] Cholesterol in HDL [Mass/Vol] 44 mg/dL Normal 23-92 [facility] Other Comment on above: Order Comment: Reaso n for Exam Asthma-COPD overlap syndrome;Type 2 diabetes mellitus withou FASTING. JKW Result Comment: HDL CHOL ATP-III CLASSIFICATION Cardiovascular Risk HDL > or equal to 60 mg/dL LOW HDL < 40 mg/dL HIGH Performed By: #### L IPID, CMP, T4F, CBC, TSH3 ####[facility] [id number] [place] [address] [facility] Cholesterol.total/Chol esterol in HDL [Mass ratio] 3.9 {ratio} Normal <5.0 [facility] Other Comment on above: Order Comment: Reaso n for Exam Asthma-COPD overlap syndrome;Type 2 diabetes mellitus withou FASTING. JKW Performed By: #### L IPID, CMP, T4F, CBC, TSH3 ####[facility] [id number] [place] [address] [facility] LDL Cholesterol,Calculated 103 mg/dL High 0-100 [facility] Comment on above: [...] #### L IPID, CMP, T4F, CBC, TSH3 ####[facility] [id number] [place] [address] [facility] Triglyceride w/Reflex 122 mg/dL Normal 0-149 [facility] Comment on above: Order Comment: [...] #### L IPID, CMP, T4F, CBC, TSH3 ####[facility] VLDL CHOLESTEROL 24 mg/dL Normal The [facility] Comment on above: Order Comment: Reaso n for Exam Asthma-COPD overlap syndrome;Type 2 diabetes mellitus withou FASTING. JKW Performed By: #### L IPID, CMP, T4F, CBC, TSH3 ####[facility] [place] [id number] [facility] Thyroid Stimulating Hormoneo n 12-12-2022 TSH Qn 2.50508392500 m[IU]/L Normal 0.45-5 .33 u[iU]/mL [facility] Other TSH Qn 2.61 m[IU]/L Normal 0.45-5.33 The [facility] Comment on above: Order Comment: Reaso n for Exam Asthma-COPD overlap syndrome;Type 2 diabetes mellitus withou FASTING. JKW Result Comment: PERF ORMED BY: [facility] [address] [place] [address] PATHOLOGIST STONE RUBBER SKYLER CLARK M.D. Performed By: #### L IPID, CMP, T4F, CBC, TSH3 ####[place] [id number] [place] [id number] [facility] A1C HEMOGLOBINon 06-02-2022 HbA1c (Bld) [Mass fraction] 7.6 % [employer] [facility] Other HbA1c (Bld) [Mass fraction]o n 06-02-2022 A1C HEMOGLOBIN [employer] Other CBC AUTO DIFFon 03-18-2022 BASO # 0.0 103/ul Normal 0.0-0.1 [facility] Comment on above: Performed By: #### D RUGRPD #### [facility] [address] [place] [address] [address] Yesenia Ruffin Basophils/100 WBC (Bld) 0.3 % Normal 0.2-2.0 [facility] Comment on above: Performed By: #### D RUGRPD #### [facility] [address] [place] [address] Dr. Yesenia Ruffin EO # 0.2 103/ul Normal 0.0-0.7 [facility] Comment on above: Performed By: #### D RUGRPD #### [facility] [address] [place] [address] Dr. Yesenia Ruffin Eosinophils/100 WBC (Bld) 1.6 % Normal 0.9-7.0 [facility] Comment on above: Performed By: #### D RUGRPD #### [facility] [address] [place] [address] Dr. Yesenia Ruffin Erythrocyte distribution width (RBC) [Ratio] 14.6 % Normal 11.0-15.0 [facility] Comment on above: Performed By: #### D RUGRPD #### [facility] [address] [place] [address] Dr. Yesenia Ruffin Hematocrit (Bld) [Volume fraction] 40.4 % Normal 36.0-48.0 [facility] Comment on above: Performed By: #### D RUGRPD #### [facility] [address] [place] [address] Dr. Yesenia Ruffin Hemoglobin (Bld) [Mass/Vol] 12.7 g/dL Normal 12.0-16.0 The [facility] Comment on above: Performed By: #### D RUGRPD #### [facility] [address] [place] [address] Dr. Yesenia Ruffin IG # 0.03 10e3/ul Normal 0.00-0.03 The [facility] Comment on above: Performed By: #### D RUGRPD #### [facility] [address] [place] [address] Dr. Yesenia Ruffin IG % 0.3 % Normal 0.0-0.5 The [facility] Comment on above: Performed By: #### D RUGRPD #### [facility] [address] [place] [address] Dr. Yesenia Ruffin LYMPH # 2.1 103/ul Normal 1.2-3.8 The [facility] Comment on above: Performed By: #### D RUGRPD #### [facility] [address] [place] [address] Dr. Yesenia Ruffin Lymphocytes/100 WBC (Bld) 20.0 % Critically low 20.5-60.0 [facility] Comment on above: Performed By: #### D RUGRPD #### [facility] [address] [place] [address] Dr. Yesenia Ruffin MANUAL DIFF REQ NO Normal [facility] Comment on above: Performed By: #### D RUGRPD #### [facility] [address] [place] [address] Dr. Yesenia Ruffin MCH (RBC) [Entitic mass] 26.1 pg Critically low 26.7-34.0 [facility] Comment on above: Performed By: #### D RUGRPD #### [facility] [address] [place] [address] Dr. Yesenia Ruffin MCHC (RBC) [Mass/Vol] 31.4 g/dL Normal 29.9-35.2 [facility] Comment on above: Performed By: #### D RUGRPD #### [facility] [address] [place] [address] Dr. Yesenia Ruffin MCV (RBC) [Entitic vol] 83.0 fL Normal 81.0-99.0 The [facility] Comment on above: Performed By: #### D RUGRPD #### [facility] [address] [place] [address] Dr. Yesenia Ruffin MONO # 0.4 103/ul Normal 0.3-0.8 The [facility] Comment on above: Performed By: #### D RUGRPD #### [facility] [address] [place] [address] Dr. Yesenia Ruffin Monocytes/100 WBC (Bld) 3.9 % Normal 1.7-12.0 [facility] Comment on above: Performed By: #### D RUGRPD #### [facility] [address] [place], [place] [id number] Dr. Yesenia Ruffin NEUT # 7.7 103/ul Critically high 1.4-6.5 The [facility] Comment on above: Performed By: #### D RUGRPD #### [facility] [address] [place] [address] Dr. Yesenia Ruffin Neutrophils/100 WBC (Bld) 73.9 % Normal 43.0-75.0 The [facility] Comment on above: Performed By: #### D RUGRPD #### [facility] [address] [place] [address] Dr. Yesenia Rufifn Platelet mean volume (Bld) [Entitic vol] 9.5 fL Normal 9.5-13.5 The [facility] Comment on above: Performed By: #### D RUGRPD #### [facility] [address] [place] [address] Dr. Yesenia Ruffin PLT 332 103/ul Normal 150-450 The [facility] Comment on above: Performed By: #### D RUGRPD #### [facility] [address] [place] [address] Dr. Yesenia Ruffin RBC 4.87 106/ul Normal 4.20-5.40 The [facility] Comment on above: Performed By: #### D RUGRPD #### [facility] [address] [place] [address] Dr. Yesenia Ruffin WBC 10.4 103/ul Normal 4.0-11.0 The [facility] Comment on above: Performed By: #### D RUGRPD #### [facility] [address] [place] [address] Dr. Yesenia Ruffin [facility]19 PCR [facility]04 SARS-CoV-2 (COVID-19) RNA NINFA+probe Ql (Unsp spec) Not detected Normal NOT DETECTED The [facility] Comment on above: Result Comment: When diagnostic [...] for this test is supported by the [place] of Health and Human Service's declaration that [...] used). Performed By: #### D RUGRPD #### [facility] [address] [place] [address] Dr. Yesenia Ruffin LIPASEon 03-18-2022 Lipase [Catalytic activity/Vol] 136.0 U/L Normal 73.0-393.0 [facility] Comment on above: Performed By: #### H STROPN, LIPA, CMP #### [facility] [address] [place] [address] Dr. Yesenia Ruffin PROF 14(COMP METB)on 022 Albumin [Mass/Vol] 3.3 g/dL Critically low 3.4-5.0 Th [facility] Comment on above: Performed By: #### H STROPN, LIPA, CMP #### [facility] [address] [place] [address] Dr. Yesenia Ruffin Albumin/Globulin [Mass ratio] 0.9 {ratio} Normal [facility] Comment on above: Performed By: #### H STROPN, LIPA, CMP #### [facility] [address] [place] [address] Dr. Yesenai Ruffin ALP [Catalytic activity/Vol] 119 U/L Critically high 46-116 [facility] Comment on above: Performed By: #### H STROPN, LIPA, CMP #### [facility] [address] [place] [address] Dr. Yesenia Ruffin ALT [Catalytic activity/Vol] 26 U/L Normal 14-59 [facility] Comment on above: Performed By: #### H STROPN, LIPA, CMP #### [facility] [address] [address] [address] Yesenia Ruffin Anion gap [Moles/Vol] 12.5 mmol/L Normal Th [facility] Comment on above: Performed By: #### H STROPN, LIPA, CMP #### [facility] [address] [address] [address] Yesenia Ruffin AST [Catalytic activity/Vol] 8 U/L Critically low 15-37 [facility] Comment on above: Performed By: #### H STROPN, LIPA, CMP #### [facility] [address] [address] [address] Yesenia Ruffin Bilirubin [Mass/Vol] 0.2 mg/dL Normal 0.2-1.0 [facility] Comment on above: Performed By: #### H STROPN, LIPA, CMP #### [facility] [address] [address] [address] Yesenia Ruffin Calcium [Mass/Vol] 10.0 mg/dL Normal 8.5-10.1 [facility] Comment on above: Performed By: #### H STROPN, LIPA, CMP #### [facility] [address] [address] [address] Yesenia Ruffin Chloride [Moles/Vol] 98 mmol/L Normal 98-107 [facility] Comment on above: Performed By: #### H STROPN, LIPA, CMP #### [facility] [address] [address] [address] Yesenia Ruffin CO2 [Moles/Vol] 31.0 mmol/L Normal 21.0-32.0 [facility] Comment on above: Performed By: #### H STROPN, LIPA, CMP #### [facility] [address] [address] [address] Yesenia Ruffin Creatinine [Mass/Vol] 0.99 mg/dL Normal 0.55-1.02 [facility] Comment on above: Performed By: #### H STROPN, LIPA, CMP #### [facility] [address] [address] [address] Yesenia Ruffin EGFR-AF CITIZEN OF [place] >60 Normal >=[address] [facility] Comment on above: Performed By: #### H STROPN, LIPA, CMP #### [facility] [address] [address] [address] Yesenia Ruffin EGFR-NON AF CITIZEN OF [place] 58 mL/min/1.73m2 Critically low >=60 [facility] Comment on above: Performed By: #### H STROPN, LIPA, CMP #### [facility] [address] [address] [address] Yesenia Ruffin Globulin (S) [Mass/Vol] 3.8 g/dL Normal [facility] Comment on above: Performed By: #### H STROPN, LIPA, CMP #### [facility] [address] [place] [address] Dr. Yesenia Ruffin Glucose [Mass/Vol] 146 mg/dL Critically high 74-106 [facility] Comment on above: Performed By: #### H STROPN, LIPA, CMP #### [facility] [address] [address] [address] Yesenia Ruffin Potassium [Moles/Vol] 4.5 mmol/L Normal 3.5-5.1 [facility] Comment on above: Performed By: #### H STROPN, LIPA, CMP #### [facility] [address] [place] [address] Dr. Yesenia Ruffin Protein [Mass/Vol] 7.1 g/dL Normal 6.4-8.2 [facility] Comment on above: Performed By: #### H STROPN, LIPA, CMP #### [facility] [address] [place] [address] Dr. Yesenia Ruffin Sodium [Moles/Vol] 137 mmol/L Normal 136-145 [facility] Comment on above: Performed By: #### H STROPN, LIPA, CMP #### [facility] [address] [place] [address] Dr. Yesenia Ruffin Urea nitrogen [Mass/Vol] 34.0 mg/dL Critically high 7.0-18.0 [facility] Comment on above: Performed By: #### H STROPN, LIPA, CMP #### [facility] [address] [address] [address] Yesenia Ruffin Urea nitrogen/Creatinine [Mass ratio] 34.3 mg/mg Normal [facility] Comment on above: Performed By: #### H RACHNA WILSON, CMP #### [facility] [address] [address] [address] Yesenia Ruffin TROPONIN, HIGH SENSITIVITYon 03-18-2022 HSTROP 7.7 pg/mL Normal 4.0-51.3 [facility] Comment on above: Result Comment: CUT- OFF POINTS HAVE BEEN ESTABLISHED BASED ON THE FOURTH UNIVERSAL DEFINITIONS OF MYOCARDIAL INFARCTION. THE UPPER REFERENCE LIMIT (URL) OF TROPONIN, DEFINED THE 99TH PERCENTILE OF cTnI DISTRIBUTION IN A REFERENCE POPULATION, HAS BEEN CONFIRMED THE DECISION THRESHOLD FOR MO DIAGNOSIS. Performed By: #### L ACT #### [facility] [address] [address] [address] Yesenia Ruffin HSTROP 7.0 pg/mL Normal 4.0-51.3 [facility] Comment on above: Result Comment: CUT- OFF POINTS HAVE BEEN ESTABLISHED BASED ON THE FOURTH UNIVERSAL DEFINITIONS OF MYOCARDIAL INFARCTION. THE UPPER REFERENCE LIMIT (URL) OF TROPONIN, DEFINED THE 99TH PERCENTILE OF cTnI DISTRIBUTION IN A REFERENCE POPULATION, HAS BEEN CONFIRMED THE DECISION THRESHOLD FOR MO DIAGNOSIS. Performed By: #### H RACHNA WILSON, CMP #### [facility] [address] [address] [address] Yesenia Ruffin XR CHEST 2 Von [...] by: GIFTY WAGNER Date: 2022-03-18 11:57 Normal [facility] Basophils Auto (Bld) [#/Vol] Ordered By: Amish Mills on 02-26-2022 Basophils (Bld) [#/Vol] 0.1 10*3/uL 0.0-0.2 [facility] Basophils/100 WBC Auto (Bld) Ordered By: Amish Mills on 02-26-2022 Basophils/100 WBC (Bld) 0.9 % . [facility] Creatinine and Glomerular fi ltration rate.predicted panel (S/P/Bld)Ordered By: Amish Mills on 02-26-2022 Creatinine [Mass/Vol] 0.99 mg/dL 0.44-1.03 [facility] Eosinophils Auto (Bld) [#/Vo l]Ordered By: Amish Mills on 02-26-2022 Eosinophils (Bld) [#/Vol] 0.0 10*3/uL 0.0-0.45 [facility] Eosinophils/100 WBC Auto (Bl d)Ordered By: Amish Mills on 02-26-2022 Eosinophils/100 WBC (Bld) 0.0 % . [facility] Erythrocyte distribution wid th Auto (RBC) [Ratio]Ordered By: Amish Mills on 02-26-2022 Erythrocyte distribution width (RBC) [Ratio] 15.4 % 11.9-15.3 [facility] Estimated glomerular filtrat ion rate (GFR) non- AmericanOrdered By: Amish Mills on 02-26-2022 GFR/1.73 sq M.predicted among non-blacks MDRD (S/P/Bld) [Vol rate/Area] 58 mL/Min [facility] Glucose Glucometer (BldC) [M ass/Vol]Ordered By: Amish Mills on 02-26-2022 Glucose [Mass/Vol] 339 mg/dL [facility] Comment on above: Random Glucose Refer ence Range is dependent on time and content of last meal. Glucose of more than 200 mg/dL in a nonstressed, ambulatory subject supports the diagnosis of Diabetes Mellitus. Hematocrit Auto (Bld) [Volum e fraction]Ordered By: Amish Mills on 02-26-2022 Hematocrit (Bld) [Volume fraction] 41.6 % 34.0-46.4 [facility] Hemoglobin [Mass/volume] in BloodOrdered By: Amish Mills on 02-26-2022 Hemoglobin (Bld) [Mass/Vol] 13.3 g/dL 11.8-15.4 [facility] - Chemistry and C hemistry - challengeOrdered By: Amish Mills on 02-26-2022 Magnesium [Mass/Vol] 2.4 mg/dL 1.6-2.6 [facility] - Hematology and Cell countsOrdered By: Amish Mills on 02-26-2022 Nucleated RBC/100 WBC (Bld) [Ratio] 0.0 % 0-0.5 [facility] Leukocytes [#/volume] in Blo od by Automated countOrdered By: Amish Mills on 02-26-2022 WBC (Bld) [#/Vol] 14.6 10*3/uL 4.5-11.0 [facility] Lymphocytes Auto (Bld) [#/Vo l]Ordered By: Amish Mills on 02-26-2022 Lymphocytes (Bld) [#/Vol] 0.7 10*3/uL 1.00-4.8 [facility] Lymphocytes/100 WBC Auto (Bl d)Ordered By: Amish Mills on 02-26-2022 Lymphocytes/100 WBC (Bld) 4.8 % . [facility] MCH Auto (RBC) [Entitic mass ]Ordered By: Amish Mills on 02-26-2022 MCH (RBC) [Entitic mass] 26.7 pg 24.7-34.3 [facility] MCHC Auto (RBC) [Mass/Vol]Or dered By: Amish Mills on 02-26-2022 MCHC (RBC) [Mass/Vol] 32.0 g/dL 32.0-35.0 [facility] MCV Auto (RBC) [Entitic vol] Ordered By: Amish Mills on 02-26-2022 MCV (RBC) [Entitic vol] 83.5 fL 80-100 [facility] Monocytes Auto (Bld) [#/Vol] Ordered By: Amish Mills on 02-26-2022 Monocytes (Bld) [#/Vol] 0.2 10*3/uL 0.0-0.8 [facility] Monocytes/100 WBC Auto (Bld) Ordered By: Amish Mills on 02-26-2022 Monocytes/100 WBC (Bld) 1.4 % . [facility] Neutrophils Auto (Bld) [#/Vo l]Ordered By: Amish Mills on 02-26-2022 Neutrophils (Bld) [#/Vol] 13.5 10*3/uL 1.8-7.7 [facility] Neutrophils/100 WBC Auto (Bl d)Ordered By: Amish Mills on 02-26-2022 Neutrophils/100 WBC (Bld) 92.9 % . [facility] No Panel InformationOrdered By: Amish Mills on 02-26-2022 Bedside Glucose Comment Glu2: cleaned meter [facility] Estimated GFR () > 60 mL/Min [facility] Comment on above: GFR estimated refere nce range: According to KDOQI guidelines, <60 ml/min/1.73m2 is sufficient to diagnose a patient with chronic kidney disease. Pharmacy Creatinine Clearance (Chem 69.48 [facility] Platelet mean volume Auto (B ld) [Entitic vol]Ordered By: Amish Mills on 02-26-2022 Platelet mean volume (Bld) [Entitic vol] 8.0 fL 6.3-10.7 [facility] Platelets Auto (Bld) [#/Vol] Ordered By: Amish Mills on 02-26-2022 Platelets (Bld) [#/Vol] 372 10*3/uL 150-450 [facility] RBC Auto (Bld) [#/Vol]Ordere d By: Amish Mills on 02-26-2022 RBC (Bld) [#/Vol] 4.98 10*6/uL 3.60-5.00 [facility] Serum or plasma anion gap de terminationOrdered By: Amish Mills on 02-26-2022 Anion gap [Moles/Vol] 13.6 mmol/L 6.0-15.0 [facility] Serum or plasma calcium kimberly urement (mass/volume)Ordered By: Amish Mills on 02-26-2022 Calcium [Mass/Vol] 9.1 mg/dL 8.2-10.2 [facility] Serum or plasma chloride manjit surement (moles/volume)Ordered By: Amish Mills on 02-26-2022 Chloride [Moles/Vol] 102 mmol/L 95-114 [facility] Serum or plasma glucose kimberly urement (mass/volume)Ordered By: Amish Mills on 02-26-2022 Glucose [Mass/Vol] 229 mg/dL 70-100 [facility] Comment on above: ADA recommended refe rence rangeRandom Glucose Reference Range is dependent on time and content of last meal. Glucose of more than 200 mg/dL in a nonstressed, ambulatory subject supports the diagnosis of Diabetes Mellitus. Serum or plasma potassium me asurement (moles/volume)Ordered By: Amish Mills on 02-26-2022 Potassium [Moles/Vol] 5.0 mmol/L 3.5-5.1 [facility] Serum or plasma sodium measu rement (moles/volume)Ordered By: Amish Mills on 02-26-2022 Sodium [Moles/Vol] 136 mmol/L 136-146 [facility] Serum or plasma total carbon dioxide measurement (moles/volume)Ordered By: Amish Mills on 02-26-2022 CO2 [Moles/Vol] 25.4 mmol/L 22.0-30.0 [facility] Serum or plasma urea nitroge n measurement (mass/volume)Ordered By: Amish Mills on 02-26-2022 Urea nitrogen [Mass/Vol] 32 mg/dL 9-23 [facility] - Chemistry and C hemistry - challengeOrdered By: Chino Perera on 02-25-2022 Lactate [Moles/Vol] 1.2 mmol/L 0.5-2.2 [facility] - Chemistry and C hemistry - challengeOrdered By: Amish Mills on 02-25-2022 CO2 [Moles/Vol] 26.8 mmol/L 23.0-27.0 [facility] HCO3 (Bld) [Moles/Vol] 25.1 mmol/L 23.0-29.0 [facility] No Panel InformationOrdered By: Amish Mills on 02-25-2022 Bedside Glucose #2 Comment Cleaned meter [facility] Arterial Blood Base Excess -2.2 mmol/L -3.0-3.0 [facility] Arterial Blood Oxygen Content 8.2 mmol/L 6.6-9.7 [facility] Arterial Blood Oxygen Saturation 96.5 % 95.0-100.0 [facility] Arterial Blood Partial Pressure CO2 54.1 mm[Hg] 35.0-45.0 [facility] Arterial Blood Partial Pressure O2 89.7 mm[Hg] 80.0-100.0 [facility] Arterial Blood pH 7.29 7.35-7.45 [facility] Blood Gas Critical Value See comment [facility] Comment on above: Critical Value monserrat young on: 02/25/2022 at 05:01 Blood Gas PEEP 6 cmH2O [facility] Blood Gas Sample Site Right radial [facility] FiO2 35 % [facility] Blood Gas Pressure Support 6.0 cmH2O [facility] A1C HEMOGLOBINon 02-24-2022 HbA1c (Bld) [Mass fraction] 6.9 % [employer] Other Basophils Auto (Bld) [#/Vol] Ordered By: Christin Field on 02-24-2022 Basophils (Bld) [#/Vol] 0.1 10*3/uL 0.0-0.2 [facility] Basophils/100 WBC Auto (Bld) Ordered By: Christin Field on 02-24-2022 Basophils/100 WBC (Bld) 1.3 % . [facility] COVID-19 Detected/Not Detect edOrdered By: Salvatore Rasmussen on 02-24-2022 SARS-CoV-2 (COVID-19) RNA NINFA+non-probe Ql (Nph) Not detected Not Detecte [facility] Comment on above: This is a duplicate RP2.1 COVID (PCR) result to be used for statistical tracking purpose only. Creatinine and Glomerular fi ltration rate.predicted panel (S/P/Bld)Ordered By: Christin Field on 02-24-2022 Creatinine [Mass/Vol] 0.97 mg/dL 0.44-1.03 [facility] Eosinophils Auto (Bld) [#/Vo l]Ordered By: Christin Field on 02-24-2022 Eosinophils (Bld) [#/Vol] 0.2 10*3/uL 0.0-0.45 [facility] Eosinophils/100 WBC Auto (Bl d)Ordered By: Christin Field on 02-24-2022 Eosinophils/100 WBC (Bld) 1.6 % . [facility] Erythrocyte distribution wid th Auto (RBC) [Ratio]Ordered By: Christin Field on 02-24-2022 Erythrocyte distribution width (RBC) [Ratio] 14.8 % 11.9-15.3 [facility] Estimated glomerular filtrat ion rate (GFR) non- AmericanOrdered By: Christin Field on 02-24-2022 GFR/1.73 sq M.predicted among non-blacks MDRD (S/P/Bld) [Vol rate/Area] 59 mL/Min [facility] HbA1c (Bld) [Mass fraction]o n 02-24-2022 A1C HEMOGLOBIN [employer] Other Hematocrit Auto (Bld) [Volum e fraction]Ordered By: Christin Field on 02-24-2022 Hematocrit (Bld) [Volume fraction] 39.3 % 34.0-46.4 [facility] Hemoglobin [Mass/volume] in BloodOrdered By: Christin Field on 02-24-2022 Hemoglobin (Bld) [Mass/Vol] 12.7 g/dL 11.8-15.4 [facility] - Chemistry and C hemistry - challengeOrdered By: Salvatore Rasmussen on 02-24-2022 CO2 [Moles/Vol] 27.9 mmol/L 23.0-27.0 [facility] HCO3 (Bld) [Moles/Vol] 26.3 mmol/L 23.0-29.0 [facility] - Chemistry and C hemistry - challengeOrdered By: Christin Field on 02-24-2022 Magnesium [Mass/Vol] 1.8 mg/dL 1.6-2.6 [facility] Natriuretic peptide B (Bld) [Mass/Vol] 10.0 pg/mL 5-100 [facility] - Hematology and Cell countsOrdered By: Christin Field on 02-24-2022 Nucleated RBC/100 WBC (Bld) [Ratio] 0.1 % 0-0.5 [facility] Leukocytes [#/volume] in Blo od by Automated countOrdered By: Christin Field on 02-24-2022 WBC (Bld) [#/Vol] 10.9 10*3/uL 4.5-11.0 [facility] Lymphocytes Auto (Bld) [#/Vo l]Ordered By: Christin Field on 02-24-2022 Lymphocytes (Bld) [#/Vol] 2.2 10*3/uL 1.00-4.8 [facility] Lymphocytes/100 WBC Auto (Bl d)Ordered By: Christin Field on 02-24-2022 Lymphocytes/100 WBC (Bld) 20.6 % . [facility] MCH Auto (RBC) [Entitic mass ]Ordered By: Christin Field on 02-24-2022 MCH (RBC) [Entitic mass] 26.3 pg 24.7-34.3 [facility] MCHC Auto (RBC) [Mass/Vol]Or dered By: Christin Field on 02-24-2022 MCHC (RBC) [Mass/Vol] 32.3 g/dL 32.0-35.0 [facility] MCV Auto (RBC) [Entitic vol] Ordered By: Christin Field on 02-24-2022 MCV (RBC) [Entitic vol] 81.4 fL 80-100 [facility] Monocytes Auto (Bld) [#/Vol] Ordered By: Christin Field on 02-24-2022 Monocytes (Bld) [#/Vol] 0.6 10*3/uL 0.0-0.8 [facility] Monocytes/100 WBC Auto (Bld) Ordered By: Christin Field on 02-24-2022 Monocytes/100 WBC (Bld) 5.1 % . [facility] Neutrophils Auto (Bld) [#/Vo l]Ordered By: Crhistin Field on 02-24-2022 Neutrophils (Bld) [#/Vol] 7.8 10*3/uL 1.8-7.7 [facility] Neutrophils/100 WBC Auto (Bl d)Ordered By: Christin Field on 02-24-2022 Neutrophils/100 WBC (Bld) 71.4 % . [facility] No Panel InformationOrdered By: Salvatore Rasmussen on 02-24-2022 Arterial Blood Base Excess -0.7 mmol/L -3.0-3.0 [facility] Arterial Blood Oxygen Content 8.1 mmol/L 6.6-9.7 [facility] Arterial Blood Oxygen Saturation 96.5 % 95.0-100.0 [facility] Arterial Blood Partial Pressure CO2 52.8 mm[Hg] 35.0-45.0 [facility] Arterial Blood Partial Pressure O2 91.1 mm[Hg] 80.0-100.0 [facility] Arterial Blood pH 7.32 7.35-7.45 [facility] Blood Gas Critical Value See comment [facility] Comment on above: Critical Value german d on: 02/24/2022 at 18:59 Blood Gas PEEP 6 cmH2O [facility] Blood Gas Pressure Support 6.0 cmH2O [facility] Blood Gas Sample Site Left radial [facility] FiO2 35 % [facility] Oxygen Delivery Device Bipap [facility] Respiratory Panel (PCR) [facility] No Panel InformationOrdered By: Christin Field on 02-24-2022 Estimated GFR () > 60 mL/Min [facility] Comment on above: GFR estimated refere nce range: According to KDOQI guidelines, <60 ml/min/1.73m2 is sufficient to diagnose a patient with chronic kidney disease. Pharmacy Creatinine Clearance (Chem 70.70 [facility] Platelet mean volume Auto (B ld) [Entitic vol]Ordered By: Christin Field on 02-24-2022 Platelet mean volume (Bld) [Entitic vol] 7.6 fL 6.3-10.7 [facility] Platelets Auto (Bld) [#/Vol] Ordered By: Christin Field on 02-24-2022 Platelets (Bld) [#/Vol] 363 10*3/uL 150-450 [facility] RBC Auto (Bld) [#/Vol]Ordere d By: Christin Field on 02-24-2022 RBC (Bld) [#/Vol] 4.83 10*6/uL 3.60-5.00 [facility] Serum or plasma anion gap de terminationOrdered By: Christin Field on 02-24-2022 Anion gap [Moles/Vol] 15.6 mmol/L 6.0-15.0 [facility] Serum or plasma calcium kimberly urement (mass/volume)Ordered By: Christin Field on 02-24-2022 Calcium [Mass/Vol] 9.6 mg/dL 8.2-10.2 [facility] Serum or plasma chloride manjit surement (moles/volume)Ordered By: Christin Field on 02-24-2022 Chloride [Moles/Vol] 98 mmol/L 95-114 [facility] Serum or plasma glucose kimberly urement (mass/volume)Ordered By: Christin Field on 02-24-2022 Glucose [Mass/Vol] 155 mg/dL 70-100 [facility] Comment on above: ADA recommended refe rence rangeRandom Glucose Reference Range is dependent on time and content of last meal. Glucose of more than 200 mg/dL in a nonstressed, ambulatory subject supports the diagnosis of Diabetes Mellitus. Serum or plasma potassium me asurement (moles/volume)Ordered By: Christin Field on 02-24-2022 Potassium [Moles/Vol] 4.2 mmol/L 3.5-5.1 [facility] Serum or plasma sodium measu rement (moles/volume)Ordered By: Christin Field on 02-24-2022 Sodium [Moles/Vol] 137 mmol/L 136-146 [facility] Serum or plasma total carbon dioxide measurement (moles/volume)Ordered By: Christin Field on 02-24-2022 CO2 [Moles/Vol] 27.6 mmol/L 22.0-30.0 [facility] Serum or plasma urea nitroge n measurement (mass/volume)Ordered By: Christin Field on 02-24-2022 Urea nitrogen [Mass/Vol] 36 mg/dL 01-24 [facility] Troponin I.cardiac [Mass/vol ume] in Serum or Plasma by High sensitivity methodOrdered By: Christin Field on 02-24-2022 Troponin I.cardiac High sensitivity method [Mass/Vol] 5 pg/mL 0 [facility] Albumin [Mass/volume] in Ser um or PlasmaOrdered By: Cristal Bass on 02-06-2022 Albumin [Mass/Vol] 3.6 g/dL 3.2-5.5 [facility] Basophils Auto (Bld) [#/Vol] Ordered By: Cristal Bass on 02-06-2022 Basophils (Bld) [#/Vol] 0.1 10*3/uL 0.0-0.2 [facility] Basophils/100 WBC Auto (Bld) Ordered By: Cristal Bass on 02-06-2022 Basophils/100 WBC (Bld) 1.0 % . [facility] Blood hemoglobin measurement (mass/volume)Ordered By: Cristal Bass on 02-06-2022 Hemoglobin (Bld) [Mass/Vol] 13.4 g/dL 11.8-15.4 [facility] Blood leukocytes automated c ount (number/volume)Ordered By: Cristal Bass on 02-06-2022 WBC (Bld) [#/Vol] 9.0 10*3/uL 4.5-11.0 [facility] COVID CepheidOrdered By: Sophia Bass on 02-06-2022 SARS-CoV-2 (COVID-19) Ab IA Ql Negative Negative [facility] Comment on above: This is a duplicate Cepheid Xpert Xpress CoV-2/Flu/RSV Plus RNA by RT-PCR result to be used for statistical tracking purpose only. SARS-CoV-2 (COVID-19) RNA NINFA+probe Ql (Unsp spec) [facility] Creatinine and Glomerular fi ltration rate.predicted panel (S/P/Bld)Ordered By: Cristal Bass on 02-06-2022 Creatinine [Mass/Vol] 0.98 mg/dL 0.44-1.03 [facility] Eosinophils Auto (Bld) [#/Vo l]Ordered By: Cristal Bass on 02-06-2022 Eosinophils (Bld) [#/Vol] 0.2 10*3/uL 0.0-0.45 [facility] Eosinophils/100 WBC Auto (Bl d)Ordered By: Cristal Bass on 02-06-2022 Eosinophils/100 WBC (Bld) 1.8 % . [facility] Erythrocyte distribution wid th Auto (RBC) [Ratio]Ordered By: Cristal Bass on 02-06-2022 Erythrocyte distribution width (RBC) [Ratio] 14.7 % 11.9-15.3 [facility] Estimated glomerular filtrat ion rate (GFR) non- AmericanOrdered By: Cristal Bass on 02-06-2022 GFR/1.73 sq M.predicted among non-blacks MDRD (S/P/Bld) [Vol rate/Area] 58 mL/Min [facility] Globulin Calc (S) [Mass/Vol] Ordered By: Cristal Bass on 02-06-2022 Globulin (S) [Mass/Vol] 3.2 g/dL [facility] Hematocrit Auto (Bld) [Volum e fraction]Ordered By: Cristal Bass on 02-06-2022 Hematocrit (Bld) [Volume fraction] 42.0 % 34.0-46.4 [facility] - Hematology and Cell countsOrdered By: Cristal Bass on 02-06-2022 Nucleated RBC/100 WBC (Bld) [Ratio] 0.1 % 0-0.5 [facility] - Microbiology an d Antimicrobial susceptibilityOrdered By: Cristal Bass on 02-06-2022 SARS-CoV-2 (COVID-19) RNA NINFA+probe Ql (Unsp spec) N/A [facility] Lymphocytes Auto (Bld) [#/Vo l]Ordered By: Cristal Bass on 02-06-2022 Lymphocytes (Bld) [#/Vol] 2.4 10*3/uL 1.00-4.8 [facility] Lymphocytes/100 WBC Auto (Bl d)Ordered By: Cristal Bass on 02-06-2022 Lymphocytes/100 WBC (Bld) 26.3 % . [facility] MCH Auto (RBC) [Entitic mass ]Ordered By: Cristal Bass on 02-06-2022 MCH (RBC) [Entitic mass] 26.0 pg 24.7-34.3 [facility] MCHC Auto (RBC) [Mass/Vol]Or dered By: Cristal Bass on 02-06-2022 MCHC (RBC) [Mass/Vol] 31.8 g/dL 32.0-35.0 [facility] MCV Auto (RBC) [Entitic vol] Ordered By: Cristal Bass on 02-06-2022 MCV (RBC) [Entitic vol] 81.7 fL 80-100 [facility] Monocytes Auto (Bld) [#/Vol] Ordered By: Cristal Bass on 02-06-2022 Monocytes (Bld) [#/Vol] 0.4 10*3/uL 0.0-0.8 [facility] Monocytes/100 WBC Auto (Bld) Ordered By: Cristal Bass on 02-06-2022 Monocytes/100 WBC (Bld) 4.6 % . [facility] Neutrophils Auto (Bld) [#/Vo l]Ordered By: Cristal Bass on 02-06-2022 Neutrophils (Bld) [#/Vol] 6.0 10*3/uL 1.8-7.7 [facility] Neutrophils/100 WBC Auto (Bl d)Ordered By: Cristal Bass on 02-06-2022 Neutrophils/100 WBC (Bld) 66.3 % . [facility] No Panel InformationOrdered By: Cristal Bass on 02-06-2022 Estimated GFR () > 60 mL/Min [facility] Comment on above: GFR estimated refere nce range: According to KDOQI guidelines, <60 ml/min/1.73m2 is sufficient to diagnose a patient with chronic kidney disease. Pharmacy Creatinine Clearance (Chem 69.84 [facility] Platelet mean volume Auto (B ld) [Entitic vol]Ordered By: Cristal Bass on 02-06-2022 Platelet mean volume (Bld) [Entitic vol] 8.0 fL 6.3-10.7 [facility] Platelets Auto (Bld) [#/Vol] Ordered By: Cristal Bass on 02-06-2022 Platelets (Bld) [#/Vol] 340 10*3/uL 150-450 [facility] Protein [Mass/volume] in Ser um or PlasmaOrdered By: Cristal Bass on 02-06-2022 Protein [Mass/Vol] 6.8 g/dL 6.1-7.9 [facility] RBC Auto (Bld) [#/Vol]Ordere d By: Cristal Bass on 02-06-2022 RBC (Bld) [#/Vol] 5.14 10*6/uL 3.60-5.00 [facility] Serum or plasma alanine eisenberg otransferase measurement without P-5'-P (enzymatic activiOrdered By: Cristal Bass on 02-06-2022 ALT No additional P-5'-P [Catalytic activity/Vol] 20 U/L [facility] Serum or plasma albumin/glob ulin mass ratioOrdered By: Cristal Bass on 02-06-2022 Albumin/Globulin [Mass ratio] 1.1 {ratio} [facility] Serum or plasma alkaline nerissa sphatase measurement (enzymatic activity/volume)Ordered By: Cristal Bass on 02-06-2022 ALP [Catalytic activity/Vol] 120 U/L 32-92 [facility] Serum or plasma anion gap de terminationOrdered By: Cristal Bass on 02-06-2022 Anion gap [Moles/Vol] 17.6 mmol/L 6.0-15.0 [facility] Serum or plasma aspartate am inotransferase measurement (enzymatic activity/volume)Ordered By: Cristal Bass on 02-06-2022 AST [Catalytic activity/Vol] 22 U/L [facility] Serum or plasma calcium kimberly urement (mass/volume)Ordered By: Cristal Bass on 02-06-2022 Calcium [Mass/Vol] 9.4 mg/dL 8.2-10.2 [facility] Serum or plasma chloride manjit surement (moles/volume)Ordered By: Cristal Bass on 02-06-2022 Chloride [Moles/Vol] 100 mmol/L 95-114 [facility] Serum or plasma glucose kimberly urement (mass/volume)Ordered By: Cristal Bass on 02-06-2022 Glucose [Mass/Vol] 100 mg/dL 70-100 [facility] Comment on above: ADA recommended refe rence rangeRandom Glucose Reference Range is dependent on time and content of last meal. Glucose of more than 200 mg/dL in a nonstressed, ambulatory subject supports the diagnosis of Diabetes Mellitus. Serum or plasma potassium me asurement (moles/volume)Ordered By: Cristal Bass on 02-06-2022 Potassium [Moles/Vol] 4.9 mmol/L 3.5-5.1 [facility] Serum or plasma sodium measu rement (moles/volume)Ordered By: Cristal Bass on 02-06-2022 Sodium [Moles/Vol] 138 mmol/L 136-146 [facility] Serum or plasma total biliru bin measurement (mass/volume)Ordered By: Cristal Bass on 02-06-2022 Bilirubin [Mass/Vol] 0.5 mg/dL 0.3-1.2 [facility] Serum or plasma total carbon dioxide measurement (moles/volume)Ordered By: Cristal Bass on 02-06-2022 CO2 [Moles/Vol] 25.3 mmol/L 22.0-30.0 [facility] Serum or plasma urea nitroge n measurement (mass/volume)Ordered By: Cristal Bass on 02-06-2022 Urea nitrogen [Mass/Vol] 35 mg/dL 9- [facility] Troponin I.cardiac [Mass/vol ume] in Serum or Plasma by High sensitivity methodOrdered By: Cristal Bass on 02-06-2022 Troponin I.cardiac High sensitivity method [Mass/Vol] 7 pg/mL 0-15 [facility] Basophils Auto (Bld) [#/Vol] Ordered By: Morena Bravo on 12-12-2021 Basophils (Bld) [#/Vol] 0.0 10*3/uL 0.0-0.2 [facility] Basophils/100 WBC Auto (Bld) Ordered By: Morena Bravo on 12-12-2021 Basophils/100 WBC (Bld) 0.6 % . [facility] Blood hemoglobin measurement (mass/volume)Ordered By: Morena Bravo on 12-12-2021 Hemoglobin (Bld) [Mass/Vol] 13.0 g/dL 11.8-15.4 [facility] Blood leukocytes automated c ount (number/volume)Ordered By: Morena Bravo on 12-12-2021 WBC (Bld) [#/Vol] 8.1 10*3/uL 4.5-11.0 [facility] Body fluid albumin measureme nt (mass/volume)Ordered By: Morena Bravo on 12-12-2021 Albumin (Body fld) [Mass/Vol] 3.5 g/dL 3.2-5.5 [facility] Cholesterol [Mass/volume] in Serum or PlasmaOrdered By: Morena Bravo on 12-12-2021 Cholesterol [Mass/Vol] 225 mg/dL 140-200 [facility] Comment on above: Chol less than 200 m g/dl low risk Chol 201-239 mg/dl borderline risk Chol 240 mg/dl and greater high risk Chol less than 200 m g/dl low riskChol 201-239 mg/dl borderline riskChol 240 mg/dl and greater high risk Cholesterol in LDL Calc [Mas s/Vol]Ordered By: Morena Bravo on 12-12-2021 Cholesterol in LDL [Mass/Vol] 125 mg/dL 0-100 [facility] Comment on above: LDL ATP III CLASSIFI [...] 12-12-2021 Cholesterol in VLDL [Mass/Vol] 40 mg/dL [facility] Creatinine and Glomerular fi ltration rate.predicted panel (S/P/Bld)Ordered By: Morena Bravo on 12-12-2021 Creatinine [Mass/Vol] 0.96 mg/dL 0.44-1.03 [facility] Eosinophils Auto (Bld) [#/Vo l]Ordered By: Morena Bravo on 12-12-2021 Eosinophils (Bld) [#/Vol] 0.2 10*3/uL 0.0-0.45 [facility] Eosinophils/100 WBC Auto (Bl d)Ordered By: Morena Bravo on 12-12-2021 Eosinophils/100 WBC (Bld) 2.8 % . [facility] Erythrocyte distribution wid th Auto (RBC) [Ratio]Ordered By: Morena Bravo on 12-12-2021 Erythrocyte distribution width (RBC) [Ratio] 14.1 % 11.9-15.3 [facility] Estimated glomerular filtrat ion rate (GFR) non- AmericanOrdered By: Morena Bravo on 12-12-2021 GFR/1.73 sq M.predicted among non-blacks MDRD (S/P/Bld) [Vol rate/Area] 60 mL/Min [facility] Globulin Calc (S) [Mass/Vol] Ordered By: Morena Bravo on 12-12-2021 Globulin (S) [Mass/Vol] 3.0 g/dL [facility] Hematocrit Auto (Bld) [Volum e fraction]Ordered By: Morena Bravo on 12-12-2021 Hematocrit (Bld) [Volume fraction] 40.4 % 34.0-46.4 [facility] - Hematology and Cell countsOrdered By: Morena Bravo on 12-12-2021 Nucleated RBC/100 WBC (Bld) [Ratio] 0.1 % 0-0.5 [facility] Lymphocytes Auto (Bld) [#/Vo l]Ordered By: Morena Bravo on 12-12-2021 Lymphocytes (Bld) [#/Vol] 2.0 10*3/uL 1.00-4.8 [facility] Lymphocytes/100 WBC Auto (Bl d)Ordered By: Morena Bravo on 12-12-2021 Lymphocytes/100 WBC (Bld) 24.6 % . [facility] MCH Auto (RBC) [Entitic mass ]Ordered By: Morena Bravo on 12-12-2021 MCH (RBC) [Entitic mass] 26.5 pg 24.7-34.3 [facility] MCHC Auto (RBC) [Mass/Vol]Or dered By: Morena Bravo on 12-12-2021 MCHC (RBC) [Mass/Vol] 32.3 g/dL 32.0-35.0 [facility] MCV Auto (RBC) [Entitic vol] Ordered By: Morena Bravo on 12-12-2021 MCV (RBC) [Entitic vol] 82.0 fL 80-100 [facility] Monocytes Auto (Bld) [#/Vol] Ordered By: Morena Bravo on 12-12-2021 Monocytes (Bld) [#/Vol] 0.4 10*3/uL 0.0-0.8 [facility] Monocytes/100 WBC Auto (Bld) Ordered By: Morena Bravo on 12-12-2021 Monocytes/100 WBC (Bld) 4.5 % . [facility] Neutrophils Auto (Bld) [#/Vo l]Ordered By: Morena Bravo on 12-12-2021 Neutrophils (Bld) [#/Vol] 5.5 10*3/uL 1.8-7.7 [facility] Neutrophils/100 WBC Auto (Bl d)Ordered By: Morena Bravo on 12-12-2021 Neutrophils/100 WBC (Bld) 67.5 % . [facility] No Panel InformationOrdered By: Morena Bravo on 12-12-2021 Estimated GFR () > 60 mL/Min [facility] Comment on above: GFR estimated refere nce range: According to KDOQI guidelines, <60 ml/min/1.73m2 is sufficient to diagnose a patient with chronic kidney disease. Pharmacy Creatinine Clearance (Chem N/A [facility] Platelet mean volume Auto (B ld) [Entitic vol]Ordered By: Morena Bravo on 12-12-2021 Platelet mean volume (Bld) [Entitic vol] 7.9 fL 6.3-10.7 [facility] Platelets Auto (Bld) [#/Vol] Ordered By: Morena Bravo on 12-12-2021 Platelets (Bld) [#/Vol] 332 10*3/uL 150-450 [facility] Protein [Mass/volume] in Ser um or PlasmaOrdered By: Morena Brvao on 12-12-2021 Protein [Mass/Vol] 6.5 g/dL 6.1-7.9 [facility] RBC Auto (Bld) [#/Vol]Ordere d By: Morena Bravo on 12-12-2021 RBC (Bld) [#/Vol] 4.93 10*6/uL 3.60-5.00 [facility] Serum or plasma alanine eisenberg otransferase measurement without P-5'-P (enzymatic activiOrdered By: Morena Bravo on 12-12-2021 ALT No additional P-5'-P [Catalytic activity/Vol] 21 U/L 10-60 [facility] Serum or plasma albumin/glob ulin mass ratioOrdered By: Morena Bravo on 12-12-2021 Albumin/Globulin [Mass ratio] 1.2 {ratio} [facility] Serum or plasma alkaline nerissa sphatase measurement (enzymatic activity/volume)Ordered By: Morena Bravo on 12-12-2021 ALP [Catalytic activity/Vol] 120 U/L 32-92 [facility] Serum or plasma aspartate am inotransferase measurement (enzymatic activity/volume)Ordered By: Morena Bravo on 12-12-2021 AST [Catalytic activity/Vol] 18 U/L 10-42 [facility] Serum or plasma calcium kimberly urement (mass/volume)Ordered By: Morena Bravo on 12-12-2021 Calcium [Mass/Vol] 10.0 mg/dL 8.2-10.2 [facility] Serum or plasma chloride manjit surement (moles/volume)Ordered By: Morena Bravo on 12-12-2021 Chloride [Moles/Vol] 98 mmol/L 95-114 [facility] Serum or plasma glucose kimberly urement (mass/volume)Ordered By: Morena Bravo on 12-12-2021 Glucose [Mass/Vol] 97 mg/dL 70-100 [facility] Comment on above: ADA recommended refe [...] Cholesterol in HDL [Mass/Vol] 59 mg/dL 35-85 [facility] Comment on above: HDL CHOL ATP-III CLA SSIFICATION Cardiovascular Risk HDL > or equal to 60 mg/dL LOW HDL < 40 mg/dL HIGH HDL CHOL ATP-III CLA SSIFICATION Cardiovascular RiskHDL > or equal to 60 mg/dL LOWHDL < 40 mg/dL HIGH Serum or plasma potassium me asurement (moles/volume)Ordered By: Morena Bravo on 12-12-2021 Potassium [Moles/Vol] 5.1 mmol/L 3.5-5.1 [facility] Serum or plasma sodium measu rement (moles/volume)Ordered By: Morena Bravo on 12-12-2021 Sodium [Moles/Vol] 135 mmol/L 136-146 [facility] Serum or plasma total biliru bin measurement (mass/volume)Ordered By: Morena Bravo on 12-12-2021 Bilirubin [Mass/Vol] 0.3 mg/dL 0.3-1.2 [facility] Serum or plasma total carbon dioxide measurement (moles/volume)Ordered By: Morena Bravo on 12-12-2021 CO2 [Moles/Vol] 26.3 mmol/L 22.0-30.0 [facility] Serum or plasma total choles terol/high density lipoprotein (HDL) cholesterol mass ratOrdered By: Morena Bravo on 12-12-2021 Cholesterol.total/Chol esterol in HDL [Mass ratio] 3.8 {ratio} <5.0 [facility] Serum or plasma urea nitroge n measurement (mass/volume)Ordered By: Morena Bravo on 12-12-2021 Urea nitrogen [Mass/Vol] 32 mg/dL 9- [facility] TSH DL <= 0.005 mIU/L QnOrde red By: Morena Bravo on 12-12-2021 TSH Qn 2.66 m[IU]/L 0.45-5.33 [facility] Thyroxine (T4) free [Mass/vo lume] in Serum or PlasmaOrdered By: Morena Bravo on 12-12-2021 Free T4 [Mass/Vol] 0.78 ng/dL 0.61-1.12 [facility] Triglyceride [Mass/volume] i n Serum or PlasmaOrdered By: Morena Bravo on 12-12-2021 Triglyceride [Mass/Vol] 203 mg/dL 35-149 [facility] Comment on above: TRIG ATP III CLASSIF [...] 11-22-2021 HbA1c (Bld) [Mass fraction] 6.3 % [employer] Other HbA1c (Bld) [Mass fraction]o n 11-22-2021 A1C HEMOGLOBIN [employer] Other A1C HEMOGLOBINon 07-29-2021 HbA1c (Bld) [Mass fraction] 6.9 % [facility] Other HbA1c (Bld) [Mass fraction]o n 07-29-2021 A1C HEMOGLOBIN [facility] Other CBC AUTO DIFFon 06-11-2021 BASO # 0.0 103/ul Normal 0.0-0.1 [facility] Comment on above: Performed By: #### C BC #### [facility] [address] [address] [address] Yesenia Ruffin Basophils/100 WBC (Bld) 0.4 % Normal 0.2-2.0 [facility] Comment on above: Performed By: #### C BC #### [facility] [address] [address] [address] Yesenia Ruffin EO # 0.0 103/ul Normal 0.0-0.7 [facility] Comment on above: Performed By: #### C BC #### [facility] [address] [address] [address] Yesenia Ruffin Eosinophils/100 WBC (Bld) 0.4 % Critically low 0.9-7.0 [facility] Comment on above: Performed By: #### C BC #### [facility] [address] [address] [address] Yesenia Ruffin Erythrocyte distribution width (RBC) [Ratio] 12.8 % Normal 11.0-15.0 [facility] Comment on above: Performed By: #### C BC #### [facility] [address] [address] [address] Yesenia Ruffin Hematocrit (Bld) [Volume fraction] 36.9 % Normal 36.0-48.0 [facility] Comment on above: Performed By: #### C BC #### [facility] [address] [address] [address] Yesenia Ruffin Hemoglobin (Bld) [Mass/Vol] 11.6 g/dL Critically low 12.0-16.0 [facility] Comment on above: Performed By: #### C BC #### [facility] [address] [address] [address] Yesenia Ruffin IG # 0.06 10e3/ul Critically high 0.00-0.03 [facility] Comment on above: Performed By: #### C BC #### [facility] [address] [address] [address] Yesenia Ruffin IG % 0.6 % Critically high 0.0-0.5 [facility] Comment on above: Performed By: #### C BC #### [facility] [address] [address] [address] Yseenia Ruffin LYMPH # 2.5 103/ul Normal 1.2-3.8 [facility] Comment on above: Performed By: #### C BC #### [facility] [address] [place] [address] Dr. Yesenia Ruffin Lymphocytes/100 WBC (Bld) 23.1 % Normal 20.5-60.0 [facility] Comment on above: Performed By: #### C BC #### [facility] [address] [place] [address] Dr. Yesenia Ruffin MANUAL DIFF REQ NO Normal [facility] Comment on above: Performed By: #### C BC #### [facility] [address] [place] [address] Dr. Yesenia Ruffin MCH (RBC) [Entitic mass] 27.2 pg Normal 26.7-34.0 [facility] Comment on above: Performed By: #### C BC #### [facility] [address] [place] [address] Dr. Yesenia Ruffin MCHC (RBC) [Mass/Vol] 31.4 g/dL Normal 29.9-35.2 [facility] Comment on above: Performed By: #### C BC #### [facility] [address] [place] [address] Dr. Yesenia Ruffin MCV (RBC) [Entitic vol] 86.4 fL Normal 81.0-99.0 [facility] Comment on above: Performed By: #### C BC #### [facility] [address] [address] [address] Yesenia Ruffin MONO # 0.5 103/ul Normal 0.3-0.8 [facility] Comment on above: Performed By: #### C BC #### [facility] [address] [address] [address] Yesenia Ruffin Monocytes/100 WBC (Bld) 5.0 % Normal 1.7-12.0 [facility] Comment on above: Performed By: #### C BC #### [facility] [address] [place] [address] Dr. Yesenia Ruffin NEUT # 7.7 103/ul Critically high 1.4-6.5 [facility] Comment on above: Performed By: #### C BC #### [facility] [address] [place] [address] Dr. Yesenia Ruffin Neutrophils/100 WBC (Bld) 70.5 % Normal 43.0-75.0 [facility] Comment on above: Performed By: #### C BC #### [facility] [address] [place] [address] Dr. Yesenia Ruffin Platelet mean volume (Bld) [Entitic vol] 9.2 fL Critically low 9.5-13.5 [facility] Comment on above: Performed By: #### C BC #### [facility] [address] [place] [address] Dr. Yesenia Ruffin PLT 322 103/ul Normal 150-450 [facility] Comment on above: Performed By: #### C BC #### [facility] [address] [place] [address] Dr. Yesenia Ruffin RBC 4.27 106/ul Normal 4.20-5.40 [facility] Comment on above: Performed By: #### C BC #### [facility] [address] [place] [address] Dr. Yesenia Ruffin WBC 10.9 103/ul Normal 4.0-11.0 [facility] Comment on above: Performed By: #### C BC #### [facility] [address] [address] [address] Yesenia Ruffin POINT OF CARE GLUCOSEon Glucose [Mass/Vol] 132 mg/dL Critically high 74-106 [facility] Comment on above: Performed By: #### L ACT #### [facility] [address] [address] [address] Yesenia Ruffin PROF CHEM 8 (BAS METB)on Anion gap [Moles/Vol] 10.5 mmol/L Normal [facility] Comment on above: Performed By: #### D RUGRPD #### [facility] [address] [address] [address] Yesenia Ruffin Calcium [Mass/Vol] 8.7 mg/dL Normal 8.4-10.2 [facility] Comment on above: Performed By: #### D RUGRPD #### [facility] [address] [place] [address] Dr. Yesenia Ruffin Chloride [Moles/Vol] 104 mmol/L Normal 98-107 [facility] Comment on above: Performed By: #### D RUGRPD #### [facility] [address] [address] [address] Yesenia Ruffin CO2 [Moles/Vol] 30.6 mmol/L Critically high 22.0-30.0 [facility] Comment on above: Performed By: #### D RUGRPD #### [facility] [address] [address] [address] Yesenia Ruffin Creatinine [Mass/Vol] 1.00 mg/dL Normal 0.52-1.04 [facility] Comment on above: Performed By: #### D RUGRPD #### [facility] [address] [address] [address] Yesenia Ruffin EGFR-AF CITIZEN OF [place] >60 Normal >=60 [facility] Comment on above: Performed By: #### D RUGRPD #### [facility] [address] [place] [address] Dr. Yesenia Ruffin EGFR-NON AF CITIZEN OF [place] 57 mL/min/1.73m2 Critically low >=60 [facility] Comment on above: Performed By: #### D RUGRPD #### [facility] [address] [address] [address] Yesenia Ruffin Glucose [Mass/Vol] 120 mg/dL Critically high 74-106 [facility] Comment on above: Performed By: #### D RUGRPD #### [facility] [address] [address] [address] Yesenia Ruffin Potassium [Moles/Vol] 3.1 mmol/L Critically low 3.4-5.0 [facility] Comment on above: Performed By: #### D RUGRPD #### [facility] [address] [address] [address] Yesenia Ruffin Sodium [Moles/Vol] 142 mmol/L Normal 137-145 [facility] Comment on above: Performed By: #### D RUGRPD #### [facility] [address] [place] [address] Dr. Yesenia Ruffin Urea nitrogen [Mass/Vol] 17.0 mg/dL Normal 7.0-17.0 [facility] Comment on above: Performed By: #### D RUGRPD #### [facility] [address] [place] [address] Dr. Yesenia Ruffin Urea nitrogen/Creatinine [Mass ratio] 17.0 mg/mg Normal [facility] Comment on above: Performed By: #### D RUGRPD #### [facility] [address] [address] [address] Yesenia Ruffin CBC AUTO DIFFon 06-10-2021 BASO # 0.0 103/ul Normal 0.0-0.1 [facility] Comment on above: Performed By: #### D RUGRPD #### [facility] [address] [place] [address] Dr. Yesenia Ruffin Basophils/100 WBC (Bld) 0.4 % Normal 0.2-2.0 [facility] Comment on above: Performed By: #### D RUGRPD #### [facility] [address] [place] [address] Dr. Yesenia Ruffin EO # 0.0 103/ul Normal 0.0-0.7 [facility] Comment on above: Performed By: #### D RUGRPD #### [facility] [address] [place] [address] Dr. Yesenia Ruffin Eosinophils/100 WBC (Bld) 0.2 % Critically low 0.9-7.0 [facility] Comment on above: Performed By: #### D RUGRPD #### [facility] [address] [place] [address] Dr. Yesenia Ruffin Erythrocyte distribution width (RBC) [Ratio] 12.8 % Normal 11.0-15.0 [facility] Comment on above: Performed By: #### D RUGRPD #### [facility] [address] [place] [address] Dr. Yesenia Ruffin Hematocrit (Bld) [Volume fraction] 36.4 % Normal 36.0-48.0 [facility] Comment on above: Performed By: #### D RUGRPD #### [facility] [address] [place] [address] Dr. Yesenia Ruffin Hemoglobin (Bld) [Mass/Vol] 11.6 g/dL Critically low 12.0-16.0 [facility] Comment on above: Performed By: #### D RUGRPD #### [facility] [address] [place] [address] Dr. Yesenia Ruffin IG # 0.02 10e3/ul Normal 0.00-0.03 [facility] Comment on above: Performed By: #### D RUGRPD #### [facility] [address] [place] [address] Dr. Yesenia Ruffin IG % 0.2 % Normal 0.0-0.5 [facility] Comment on above: Performed By: #### D RUGRPD #### [facility] [address] [place] [address] Dr. Yesenia Ruffin LYMPH # 1.7 103/ul Normal 1.2-3.8 [facility] Comment on above: Performed By: #### D RUGRPD #### [facility] [address] [place] [address] Dr. Yesenia Ruffin Lymphocytes/100 WBC (Bld) 16.3 % Critically low 20.5-60.0 [facility] Comment on above: Performed By: #### D RUGRPD #### [facility] [address] [place] [address] Dr. Yesenia Ruffin MANUAL DIFF REQ NO Normal [facility] Comment on above: Performed By: #### D RUGRPD #### [facility] [address] [place] [address] Dr. Yesenia Ruffin MCH (RBC) [Entitic mass] 27.5 pg Normal 26.7-34.0 [facility] Comment on above: Performed By: #### D RUGRPD #### [facility] [address] [place] [address] Dr. Yesenia Ruffin MCHC (RBC) [Mass/Vol] 31.9 g/dL Normal 29.9-35.2 [facility] Comment on above: Performed By: #### D RUGRPD #### [facility] [address] [place] [address] Dr. Yesenia Ruffin MCV (RBC) [Entitic vol] 86.3 fL Normal 81.0-99.0 [facility] Comment on above: Performed By: #### D RUGRPD #### [facility] [address] [place] [address] Dr. Yesenia Ruffin MONO # 0.5 103/ul Normal 0.3-0.8 [facility] Comment on above: Performed By: #### D RUGRPD #### [facility] [address] [place] [address] Dr. Yesenia Ruffin Monocytes/100 WBC (Bld) 5.1 % Normal 1.7-12.0 [facility] Comment on above: Performed By: #### D RUGRPD #### [facility] [address] [place] [address] Dr. Yesenia Ruffin NEUT # 8.2 103/ul Critically high 1.4-6.5 [facility] Comment on above: Performed By: #### D RUGRPD #### [facility] [address] [place] [address] Dr. Yesenia Ruffin Neutrophils/100 WBC (Bld) 77.8 % Critically high 43.0-75.0 [facility] Comment on above: Performed By: #### D RUGRPD #### [facility] [address] [place] [address] Dr. Yesenia Ruffin Platelet mean volume (Bld) [Entitic vol] 9.0 fL Critically low 9.5-13.5 [facility] Comment on above: Performed By: #### D RUGRPD #### [facility] [address] [place] [address] Dr. Yesenia Ruffin PLT 328 103/ul Normal 150-450 [facility] Comment on above: Performed By: #### D RUGRPD #### [facility] [address] [place] [address] Dr. Yesenia Ruffin RBC 4.22 106/ul Normal 4.20-5.40 [facility] Comment on above: Performed By: #### D RUGRPD #### [facility] [address] [place] [address] Dr. Yesenia Ruffin WBC 10.6 103/ul Normal 4.0-11.0 [facility] Comment on above: Performed By: #### D RUGRPD #### [facility] [address] [place] [address] Dr. Yesenia Ruffin DRUG SCREEN RAPID (URINE)on 06-10-2021 AMP Negative Normal NEGATIVE [facility] Comment on above: Performed By: #### D RUGRPD #### [facility] [address] [place] [address] Dr. Yesenia Ruffin BAR Negative Normal NEGATIVE [facility] Comment on above: Performed By: #### D RUGRPD #### [facility] [address] [place] [address] Dr. Yesenia Ruffin BUP Negative Normal NEGATIVE [facility] Comment on above: Performed By: #### D RUGRPD #### [facility] [address] [place] [address] Dr. Yesenia Ruffin BZO Negative Normal NEGATIVE [facility] Comment on above: Performed By: #### D RUGRPD #### [facility] [address] [address] [address] Yesenia Ruffin ROSE MARIE Negative Normal NEGATIVE [facility] Comment on above: Performed By: #### D RUGRPD #### [facility] [address] [place] [address] Dr. Yesenia Ruffin CUT-OFFS SEE BELOW Normal [facility] Comment on above: Result Comment: AMP [...] ng/mL Performed By: #### D RUGRPD #### [facility] [address] [place] [address] Dr. Yesenia Ruffin DRUG CUT HEADER DRUG CLASS TEST SYST EM CUT-OFF CONCENTRATIONS ARE FOLLOWS: Normal [facility] Comment on above: Performed By: #### D RUGRPD #### [facility] [address] [place] [address] Dr. Yesenia Ruffin mAMP Negative Normal NEGATIVE [facility] Comment on above: Performed By: #### D RUGRPD #### [facility] [address] [address] [address] Yesenia Ruffin MTD Negative Normal NEGATIVE [facility] Comment on above: Performed By: #### D RUGRPD #### [facility] [address] [place] [address] Dr. Yesenia Ruffin OPI Positive Abnormal NEGATIVE [facility] Comment on above: Performed By: #### D RUGRPD #### [facility] [address] [place] [address] Dr. Yesenia Ruffin OXY Negative Normal NEGATIVE [facility] Comment on above: Performed By: #### D RUGRPD #### [facility] [address] [address] [address] Yesenia Ruffin PCP Negative Normal NEGATIVE [facility] Comment on above: Performed By: #### D RUGRPD #### [facility] [address] [address] [address] Yesenia Ruffin PPX Negative Normal NEGATIVE [facility] Comment on above: Performed By: #### D RUGRPD #### [facility] [address] [place] [address] Dr. Yesenia Ruffin TCA Negative Normal NEGATIVE [facility] Comment on above: Performed By: #### D RUGRPD #### [facility] [address] [place] [address] Dr. Yesenia Ruffin THC Negative Normal NEGATIVE [facility] Comment on above: Performed By: #### D RUGRPD #### [facility] [address] [place] [address] Dr. Yesenia Ruffin GLYCOHEMOGLOBIN A1Con 2021 ADA RECOMMENDATION ADA THERAPEUTIC TARG ET 6.0 - 7.0 ACTION SUGGESTED > 7.0 Normal [facility] Comment on above: Performed By: #### L ACT #### [facility] [address] [place] [address] Dr. Yesenia Ruffin Glucose [Mass/Vol] 151 mg/dL Normal [facility] Comment on above: Performed By: #### L ACT #### [facility] [address] [place] [address] Dr. Yesenia Ruffin HbA1c (Bld) [Mass fraction] 6.9 % Critically high <=6.0 [facility] Comment on above: Performed By: #### L ACT #### [facility] [address] [place] [address] Dr. Yesenia Ruffin POINT OF CARE GLUCOSEon Glucose [Mass/Vol] 97 mg/dL Normal 74-106 [facility] Comment on above: Performed By: #### P OCGLUC #### [facility] [address] [place] [address] Dr. Yesenia Ruffin Glucose [Mass/Vol] 142 mg/dL Critically high 74-106 [facility] Comment on above: Performed By: #### D RUGRPD #### [facility] [address] [address] [address] Yesenia Ruffin Glucose [Mass/Vol] 127 mg/dL Critically high 74-106 [facility] Comment on above: Performed By: #### D RUGRPD #### [facility] [address] [address] [address] Yesenia Ruffin Glucose [Mass/Vol] 155 mg/dL Critically high 74-106 [facility] Comment on above: Performed By: #### P OCGLUC #### [facility] [address] [place] [address] Dr. Yesenia Ruffin PROF CHEM 8 (BAS METB)on Anion gap [Moles/Vol] 9.6 mmol/L Normal [facility] Comment on above: Performed By: #### D RUGRPD #### [facility] [address] [place] [address] Dr. Yesenia Ruffin Calcium [Mass/Vol] 8.9 mg/dL Normal 8.4-10.2 [facility] Comment on above: Performed By: #### D RUGRPD #### [facility] [address] [place] [address] Dr. Yesenia Ruffin Chloride [Moles/Vol] 101 mmol/L Normal 98-107 [facility] Comment on above: Performed By: #### D RUGRPD #### [facility] [address] [place] [address] Dr. Yesenia Ruffin CO2 [Moles/Vol] 30.9 mmol/L Critically high 22.0-30.0 [facility] Comment on above: Performed By: #### D RUGRPD #### [facility] [address] [place] [address] Dr. Yesenia Ruffin Creatinine [Mass/Vol] 1.04 mg/dL Normal 0.52-1.04 [facility] Comment on above: Performed By: #### D RUGRPD #### [facility] [address] [address] [address] Yesenia Ruffin EGFR-AF CITIZEN OF [place] >60 Normal >=[address] [facility] Comment on above: Performed By: #### D RUGRPD #### [facility] [address] [address] [address] Yesenia Ruffin EGFR-NON AF CITIZEN OF [place] 55 mL/min/1.73m2 Critically low >=60 [facility] Comment on above: Performed By: #### D RUGRPD #### [facility] [address] [address] [address] Yesenia Ruffin Glucose [Mass/Vol] 133 mg/dL Critically high 74-106 [facility] Comment on above: Performed By: #### D RUGRPD #### [facility] [address] [address] [address] Yesenia Ruffin Potassium [Moles/Vol] 3.5 mmol/L Normal 3.4-5.0 [facility] Comment on above: Performed By: #### D RUGRPD #### [facility] [address] [address] [address] Yesenia Ruffin Sodium [Moles/Vol] 138 mmol/L Normal 137-145 [facility] Comment on above: Performed By: #### D RUGRPD #### [facility] [address] [address] [address] Yesenia Ruffin Urea nitrogen [Mass/Vol] 27.0 mg/dL Critically high 7.0-17.0 [facility] Comment on above: Performed By: #### D RUGRPD #### [facility] [address] [address] [address] Yesenia Ruffin Urea nitrogen/Creatinine [Mass ratio] 26.0 mg/mg Normal [facility] Comment on above: Performed By: #### D RUGRPD #### [facility] [address] [address] [address] Yesenia Ruffin US SINGLE QUAD RT [...] KELSIE MAR Date: 2021-06-10 12:32 Normal [facility] AMYLASEon 06-09-2021 Amylase [Catalytic activity/Vol] 38 U/L Normal 31-110 [facility] Comment on above: Performed By: #### L ACT #### [facility] [address] [address] [address] Yesenia Ruffin CBC AUTO DIFFon 06-09-2021 BASO # 0.0 103/ul Normal 0.0-0.1 [facility] Comment on above: Performed By: #### C BC #### [facility] [address] [address] [address] Yesenia Ruffin Basophils/100 WBC (Bld) 0.3 % Normal 0.2-2.0 [facility] Comment on above: Performed By: #### C BC #### [facility] [address] [address] [address] Yesenia Ruffin EO # 0.0 103/ul Normal 0.0-0.7 [facility] Comment on above: Performed By: #### C BC #### [facility] [address] [place] [address] Dr. Yesenia Ruffin Eosinophils/100 WBC (Bld) 0.2 % Critically low 0.9-7.0 [facility] Comment on above: Performed By: #### C BC #### [facility] [address] [place] [address] Dr. Yesenia Ruffin Erythrocyte distribution width (RBC) [Ratio] 12.7 % Normal 11.0-15.0 [facility] Comment on above: Performed By: #### C BC #### [facility] [address] [place] [address] Dr. Yesenia Ruffin Hematocrit (Bld) [Volume fraction] 39.9 % Normal 36.0-48.0 [facility] Comment on above: Performed By: #### C BC #### [facility] [address] [place] [address] Dr. Yesenia Ruffin Hemoglobin (Bld) [Mass/Vol] 13.1 g/dL Normal 12.0-16.0 [facility] Comment on above: Performed By: #### C BC #### [facility] [address] [place] [address] Dr. Yesenia Ruffin IG # 0.05 10e3/ul Critically high 0.00-0.03 [facility] Comment on above: Performed By: #### C BC #### [facility] [address] [place] [address] Dr. Yesenia Ruffin IG % 0.4 % Normal 0.0-0.5 [facility] Comment on above: Performed By: #### C BC #### [facility] [address] [place] [address] Dr. Yesenia Ruffin LYMPH # 1.9 103/ul Normal 1.2-3.8 [facility] Comment on above: Performed By: #### C BC #### [facility] [address] [place] [address] Dr. Yesenia Ruffin Lymphocytes/100 WBC (Bld) 14.7 % Critically low 20.5-60.0 [facility] Comment on above: Performed By: #### C BC #### [facility] [address] [place] [address] Dr. eYsenia Ruffin MANUAL DIFF REQ NO Normal [facility] Comment on above: Performed By: #### C BC #### [facility] [address] [place] [address] Dr. Yesenia Ruffin MCH (RBC) [Entitic mass] 27.6 pg Normal 26.7-34.0 [facility] Comment on above: Performed By: #### C BC #### [facility] [address] [place] [address] Dr. Yesenia Ruffin MCHC (RBC) [Mass/Vol] 32.8 g/dL Normal 29.9-35.2 [facility] Comment on above: Performed By: #### C BC #### [facility] [address] [place] [address] Dr. Yesenia Ruffin MCV (RBC) [Entitic vol] 84.0 fL Normal 81.0-99.0 [facility] Comment on above: Performed By: #### C BC #### [facility] [address] [place] [address] Dr. Yesenia Ruffin MONO # 0.7 103/ul Normal 0.3-0.8 [facility] Comment on above: Performed By: #### C BC #### [facility] [address] [place] [address] Dr. Yesenia Ruffin Monocytes/100 WBC (Bld) 5.1 % Normal 1.7-12.0 [facility] Comment on above: Performed By: #### C BC #### [facility] [address] [place] [address] Dr. Yesenia Ruffin NEUT # 10.4 103/ul Critically high 1.4-6.[address] [facility] Comment on above: Performed By: #### C BC #### [facility] [address] [address] [address] Yesenia Ruffin Neutrophils/100 WBC (Bld) 79.3 % Critically high 43.0-75.0 [facility] Comment on above: Performed By: #### C BC #### [facility] [address] [address] [address] Yesenia Ruffin Platelet mean volume (Bld) [Entitic vol] 9.0 fL Critically low 9.5-13.5 [facility] Comment on above: Performed By: #### C BC #### [facility] [address] [place] [address] Dr. Yesenia Ruffin PLT 380 103/ul Normal 150-450 [facility] Comment on above: Performed By: #### C BC #### [facility] [address] [place] [address] Dr. Yesenia Ruffin RBC 4.75 106/ul Normal 4.20-5.40 [facility] Comment on above: Performed By: #### C BC #### [facility] [address] [place] [address] Dr. Yesenia Ruffin WBC 13.1 103/ul Critically high 4.0-11.[address] [facility] Comment on above: Performed By: #### C BC #### [facility] [address] [place] [address] ABD/PELV W CONon 06-09-19 CT ABD/PELV W CON EXAMINATION: CT ABD/ PELV W CON HISTORY: Abdominal pain COMPARISON: None. TECHNIQUE: CT of the abdomen/pelvis with intravenous contrast. Additional delayed imaging through the pelvis. Dose reduction techniques were achieved by using automated exposure control and/or adjustment of mA and/or kV according to patient size and/or use of iterative reconstruction technique. 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 Performed By: #### L ACT #### [facility] [address] [place] [address] Dr. Yesenia Ruffin ER URINE PROFILEon 2 Bilirubin Ql (U) Negative Normal NEGATIVE [facility] Comment on above: Performed By: #### L ACT #### [facility] [address] [place] [address] Dr. Yesenia Ruffin Clarity (U) CLEAR Normal CLEAR [facility] Comment on above: Performed By: #### L ACT #### [facility] [address] [place] [address] Dr. Yesenia Ruffin Color (U) LT. YELLOW Normal YELLOW [facility] Comment on above: Performed By: #### L ACT #### [facility] [address] [place] [address] Dr. Yesenia Ruffin ERUAHD A micrscopic examina tion will be performed if indicated. Normal [facility] Comment on above: Performed By: #### L ACT #### [facility] [address] [place] [address] Dr. Yesenia Ruffin Glucose Ql (U) Negative Normal NEGATIVE [facility] Comment on above: Performed By: #### L ACT #### [facility] [address] [place] [address] Dr. Yesenia Ruffin Hemoglobin Ql (U) Negative Normal NEGATIVE [facility] Comment on above: Performed By: #### L ACT #### [facility] [address] [address] [address] Yesenia Ruffin Ketones Ql (U) Negative Normal NEGATIVE [facility] Comment on above: Performed By: #### L ACT #### [facility] [address] [place] [address] Dr. Yesenia Ruffin LEUKOCYTES Negative Normal NEGATIVE [facility] Comment on above: Performed By: #### L ACT #### [facility] [address] [place] [address] Dr. Yesenia Ruffin Nitrite Ql (U) Negative Normal NEGATIVE [facility] Comment on above: Performed By: #### L ACT #### [facility] [address] [place] [address] Dr. Yesenia Ruffin pH (U) 6.5 [pH] Normal 5-9 [facility] Comment on above: Performed By: #### L ACT #### [facility] [address] [place] [address] Dr. Yesenia Ruffin SPEC GRAVITY <=1.005 Abnormal 1.005-<=1. 025 [facility] Comment on above: Performed By: #### L ACT #### [facility] [address] [place] [address] Dr. Yesenia Ruffin UA PROTEIN Negative Normal NEGATIVE/ TRACE [facility] Comment on above: Performed By: #### L ACT #### [facility] [address] [place] [address] Dr. Yesenia Ruffin UR MICRO IND NOT INDICATED Normal [facility] Comment on above: Performed By: #### L ACT #### [facility] [address] [place] [address] Dr. Yesenia Ruffin Urobilinogen Qn (U) 0.2 {Heavenly'U}/dL Normal 0.2 - 1. 0 [facility] Comment on above: Performed By: #### L ACT #### [facility] [address] [place] [address] Dr. Yesenia Ruffin LACTATE/LACTIC ACIDon 2021 Lactate [Moles/Vol] 1.4 mmol/L Normal 0.7-2.0 [facility] Comment on above: Performed By: #### L ACT #### [facility] [address] [place] [address] Dr. Yesenia Ruffin LIPASEon 06-09-2021 Lipase [Catalytic activity/Vol] 77.0 U/L Normal 23.0-300.0 [facility] Comment on above: Performed By: #### L ACT #### [facility] [address] [place] [address] Dr. Yesenia Ruffin POINT OF CARE GLUCOSEon Glucose [Mass/Vol] 129 mg/dL Critically high 74-106 [facility] Comment on above: Performed By: #### P OCGLUC #### [facility] [address] [place] [address] Dr. Yesenia Ruffin PROF 14(COMP METB)on 022 Albumin [Mass/Vol] 3.6 g/dL Normal 3.5-5.0 [facility] Comment on above: Performed By: #### L ACT #### [facility] [address] [place] [address] Dr. Yesenia Ruffin Albumin/Globulin [Mass ratio] 0.9 {ratio} Normal [facility] Comment on above: Performed By: #### L ACT #### [facility] [address] [place] [address] Dr. Yesenia Ruffin ALP [Catalytic activity/Vol] 107 U/L Normal 38-126 [facility] Comment on above: Performed By: #### L ACT #### [facility] [address] [place] [address] Dr. Yesenia Ruffin ALT [Catalytic activity/Vol] 23 U/L Normal 9-52 [facility] Comment on above: Performed By: #### L ACT #### [facility] [address] [place] [address] Dr. Yesenia Ruffin Anion gap [Moles/Vol] 11.6 mmol/L Normal [facility] Comment on above: Performed By: #### L ACT #### [facility] [address] [place] [address] Dr. Yesenia Ruffin AST [Catalytic activity/Vol] 17 U/L Normal 14-36 [facility] Comment on above: Performed By: #### L ACT #### [facility] [address] [address] [address] Yesenia Ruffin Bilirubin [Mass/Vol] 0.3 mg/dL Normal 0.2-1.3 [facility] Comment on above: Performed By: #### L ACT #### [facility] [address] [address] [address] Yesenia Ruffin Calcium [Mass/Vol] 10.5 mg/dL Critically high 8.4-10.2 [facility] Comment on above: Performed By: #### L ACT #### [facility] [address] [address] [address] Yesenia Ruffin Chloride [Moles/Vol] 94 mmol/L Critically low 98-107 [facility] Comment on above: Performed By: #### L ACT #### [facility] [address] [address] [address] Yesenia Ruffin CO2 [Moles/Vol] 33.6 mmol/L Critically high 22.0-30.0 [facility] Comment on above: Performed By: #### L ACT #### [facility] [address] [address] [address] Yesenia Ruffin Creatinine [Mass/Vol] 1.48 mg/dL Critically high 0.52-1.04 [facility] Comment on above: Performed By: #### L ACT #### [facility] [address] [address] [address] Yesenia Ruffin EGFR-AF CITIZEN OF [place] 44 mL/min/1.73m2 Critically low >=60 [facility] Comment on above: Performed By: #### L ACT #### [facility] [address] [address] [address] Yesenia Ruffin EGFR-NON AF CITIZEN OF [place] 36 mL/min/1.73m2 Critically low >=60 [facility] Comment on above: Performed By: #### L ACT #### [facility] [address] [address] [address] Yesenia Ruffin Globulin (S) [Mass/Vol] 4.0 g/dL Normal [facility] Comment on above: Performed By: #### L ACT #### [facility] [address] [address] [address] Yesenia Ruffin Glucose [Mass/Vol] 149 mg/dL Critically high 74-106 [facility] Comment on above: Performed By: #### L ACT #### [facility] [address] [id number] Yesenia Ruffin Potassium [Moles/Vol] 3.2 mmol/L Critically low 3.4-5.0 [facility] Comment on above: Performed By: #### L ACT #### [facility] [address] [address] [address] Yesenia Ruffin Protein [Mass/Vol] 7.6 g/dL Normal 6.1-8.2 [facility] Comment on above: Performed By: #### L ACT #### [facility] [address] [address] [address] Yesenia Ruffin Sodium [Moles/Vol] 136 mmol/L Critically low 137-145 [facility] Comment on above: Performed By: #### L ACT #### [facility] [address] [address] [address] Yesenia Ruffin Urea nitrogen [Mass/Vol] 49.0 mg/dL Critically high 7.0-17.0 [facility] Comment on above: Performed By: #### L ACT #### [facility] [address] [address] [address] Yesenia Ruffin Urea nitrogen/Creatinine [Mass ratio] 33.1 mg/mg Normal [facility] Comment on above: Performed By: #### L ACT #### [facility] [address] [address] [address] Yesenia Ruffin A1C HEMOGLOBINon 04-30-2021 HbA1c (Bld) [Mass fraction] 6.5 % [facility] Other HbA1c (Bld) [Mass fraction]o n 04-30-2021 A1C HEMOGLOBIN [facility] Other COVID Quick Testingon 2020 Result Negative [facility] Other A1C HEMOGLOBINon 01-24-2021 HbA1c (Bld) [Mass fraction] 7.4 % [facility] Other HbA1c (Bld) [Mass fraction]o n 01-24-2021 A1C HEMOGLOBIN [facility] Other Vital Signs Date Time Vital Sign Value Performing Clinician Facility 03-24-2024 11:03-0500 Body height 147.32 cm Morena Schwerer DO Work Phone: [facility] 03-24-2024 11:03-0500 Body mass index (BMI) [Ratio] 46.3 kg/m2 Morena Schwerer DO Work Phone: [facility] 03-24-2024 11:03-0500 Body temperature 97.1 [degF] Morena Schwerer DO Work Phone: [facility] 03-24-2024 11:03-0500 Body weight 100.69 kg Morena Schwerer DO Work Phone: [facility] 03-24-2024 11:03-0500 Diastolic blood pressure 94 mm[Hg] Morena Schwerer DO Work Phone: [facility] 03-24-2024 11:03-0500 Heart rate 84 /min Morena Schwerer DO Work Phone: [facility] 03-24-2024 11:03-0500 Inhaled oxygen flow rate 2 L/min Morena Schwerer DO Work Phone: [facility] 03-24-2024 11:03-0500 Respiratory rate 20 /min Morena Schwerer DO Work Phone: [facility] 03-24-2024 11:03-0500 SaO2% (BldA) [Mass fraction] 98 % Morena Schwerer DO Work Phone: [facility] 03-24-2024 11:03-0500 Systolic blood pressure 130 mm[Hg] Morena Schwerer DO Work Phone: [facility] 12-24-2023 10:51-0400 Body height 148.59 cm DO Morena Schwerer Work Phone: [facility] 12-24-2023 10:51-0400 Body mass index (BMI) [Ratio] 45.2 kg/m2 DO Morena Schwerer Work Phone: [facility] 12-24-2023 10:51-0400 Body temperature 97.7 [degF] DO Morena Schwerer Work Phone: [facility] 12-24-2023 10:51-0400 Body weight 99.96 kg DO Morena Schwerer Work Phone: [facility] 12-24-2023 10:51-0400 Diastolic blood pressure 74 mm[Hg] DO Morena Schwerer Work Phone: [facility] 12-24-2023 10:51-0400 Heart rate 83 /min DO Morena Schwerer Work Phone: [facility] 12-24-2023 10:51-0400 Inhaled oxygen flow rate 2 L/min DO Morena Schwerer Work Phone: [facility] 12-24-2023 10:51-0400 Respiratory rate 20 /min DO Morena Schwerer Work Phone: [facility] 12-24-2023 10:51-0400 SaO2% (BldA) [Mass fraction] 97 % DO Morena Schwerer Work Phone: [facility] 12-24-2023 10:51-0400 Systolic blood pressure 118 mm[Hg] DO Morena Schwerer Work Phone: [facility] 12-11-2023 11:34-0400 Body height 148.59 cm DO Morena Schwerer Work Phone: [facility] 12-11-2023 11:34-0400 Body mass index (BMI) [Ratio] 45.8 kg/m2 DO Morena Schwerer Work Phone: [facility] 12-11-2023 11:34-0400 Body temperature 98.8 [degF] DO Morena Schwerer Work Phone: [facility] 12-11-2023 11:34-0400 Body weight 101.17 kg DO Morena Schwerer Work Phone: [facility] 12-11-2023 11:34-0400 Diastolic blood pressure 76 mm[Hg] DO Morena Schwerer Work Phone: [facility] 12-11-2023 11:34-0400 Heart rate 91 /min DO Morena Schwerer Work Phone: [facility] 12-11-2023 11:34-0400 Inhaled oxygen flow rate 2 L/min DO Morena Schwerer Work Phone: [facility] 12-11-2023 11:34-0400 SaO2% (BldA) [Mass fraction] 96 % DO Morena Schwerer Work Phone: [facility] 12-11-2023 11:34-0400 Systolic blood pressure 122 mm[Hg] DO Morena Schwerer Work Phone: [facility] 10-30-2023 13:32-0400 Diastolic blood pressure 74 mm[Hg] DO Mornea Schwerer Work Phone: [facility] 10-30-2023 13:32-0400 Heart rate 69 /min DO Morena Schwerer Work Phone: [facility] 10-30-2023 13:32-0400 Inhaled oxygen flow rate 2 L/min DO Morena Schwerer Work Phone: [facility] 10-30-2023 13:32-0400 Respiratory rate 16 /min DO Morena Schwerer Work Phone: [facility] 10-30-2023 13:32-0400 SaO2% (BldA) [Mass fraction] 96 % DO Morena Schwerer Work Phone: [facility] 10-30-2023 13:32-0400 Systolic blood pressure 125 mm[Hg] DO Morena Schwerer Work Phone: [phone] [place] [address] 10-30-2023 08:26-0400 Body height 172.72 cm DO Morena Schwerer Work Phone: [phone] [place] [address] 10-30-2023 08:26-0400 Body temperature 98.4 [degF] DO Morena Schwerer Work Phone: [facility] 10-30-2023 08:26-0400 Body weight 102 kg DO Morena Schwerer Work Phone: [facility] 10-22-2023 12:55-0400 Body height 147.32 cm DO Morena Schwerer Work Phone: [facility] 10-22-2023 12:55-0400 Body mass index (BMI) [Ratio] 47 kg/m2 DO Morena Schwerer Work Phone: [facility] 10-22-2023 12:55-0400 Body weight 102.05 kg DO Morena Schwerer Work Phone: [facility] 10-22-2023 12:55-0400 Diastolic blood pressure 64 mm[Hg] DO Morena Schwerer Work Phone: [facility] 10-22-2023 12:55-0400 Heart rate 98 /min DO Morena Schwerer Work Phone: [facility] 10-22-2023 12:55-0400 Inhaled oxygen flow rate 2 L/min DO Morena Schwerer Work Phone: [facility] 10-22-2023 12:55-0400 Respiratory rate 18 /min DO Morena Schwerer Work Phone: [facility] 10-22-2023 12:55-0400 SaO2% (BldA) [Mass fraction] 95 % DO Morena Schwerer Work Phone: [facility] 10-22-2023 12:55-0400 Systolic blood pressure 130 mm[Hg] DO Morena Schwerer Work Phone: [facility] 09-25-2023 10:26-0400 Diastolic blood pressure 90 mm[Hg] DO Morena Schwerer Work Phone: [facility] 09-25-2023 10:26-0400 Heart rate 74 /min DO Morena Schwerer Work Phone: [facility] 09-25-2023 10:26-0400 Systolic blood pressure 130 mm[Hg] DO Morena Schwerer Work Phone: [facility] 09-25-2023 09:42-0400 Body height 147.32 cm DO Morena Schwerer Work Phone: [facility] 09-25-2023 09:42-0400 Body weight 104.32 kg DO Morena Schwerer Work Phone: [facility] 09-10-2023 13:04-0400 Body height 148.59 cm DO Morena Schwerer Work Phone: [facility] 09-10-2023 13:04-0400 Body mass index (BMI) [Ratio] 46.2 kg/m2 DO Morena Schwerer Work Phone: [facility] 09-10-2023 13:04-0400 Body weight 102.05 kg DO Morena Schwerer Work Phone: [facility] 09-10-2023 13:04-0400 Diastolic blood pressure 84 mm[Hg] DO Morena Schwerer Work Phone: [facility] 09-10-2023 13:04-0400 Heart rate 84 /min DO Morena Schwerer Work Phone: [facility] 09-10-2023 13:04-0400 Inhaled oxygen flow rate 2 L/min DO Morena Schwerer Work Phone: [facility] 09-10-2023 13:04-0400 Respiratory rate 22 /min DO Morena Schwerer Work Phone: [facility] 09-10-2023 13:04-0400 SaO2% (BldA) [Mass fraction] 95 % DO Morena Schwerer Work Phone: [facility] 09-10-2023 13:04-0400 Systolic blood pressure 122 mm[Hg] DO Morena Schwerer Work Phone: [facility] 08-27-2023 09:31-0400 Body height 148.59 cm [facility] 08-27-2023 09:31-0400 Body mass index (BMI) [Ratio] 45.8 kg/m2 [facility] 08-27-2023 09:31-0400 Body temperature 98.3 [degF] [facility] 08-27-2023 09:31-0400 Body weight 101.15 kg [facility] 08-27-2023 09:31-0400 Diastolic blood pressure 84 mm[Hg] [facility] 08-27-2023 09:31-0400 Heart rate 89 /min [facility] 08-27-2023 09:31-0400 Inhaled oxygen flow rate 2 L/min [facility] 08-27-2023 09:31-0400 Respiratory rate 20 /min [facility] 08-27-2023 09:31-0400 SaO2% (BldA) [Mass fraction] 96 % [facility] 08-27-2023 09:31-0400 Systolic blood pressure 122 mm[Hg] [facility] 07-27-2023 14:45-0400 Body height 148.59 cm [facility] 07-27-2023 14:45-0400 Body mass index (BMI) [Ratio] 45.9 kg/m2 [facility] 07-27-2023 14:45-0400 Body temperature 98.1 [degF] [facility] 07-27-2023 14:45-0400 Body weight 101.37 kg [facility] 07-27-2023 14:45-0400 Diastolic blood pressure 84 mm[Hg] [facility] 07-27-2023 14:45-0400 Heart rate 96 /min [facility] 07-27-2023 14:45-0400 Inhaled oxygen flow rate 2 L/min [facility] 07-27-2023 14:45-0400 SaO2% (BldA) [Mass fraction] 97 % [facility] 07-27-2023 14:45-0400 Systolic blood pressure 138 mm[Hg] [facility] 06-12-2023 10:45-0500 Body height 148.59 cm Mayo Bobky Other [facility] Other 06-12-2023 10:45-0500 Body mass index (BMI) [Ratio] 45.4 kg/m2 Mayo Jeff Other [facility] Other 06-12-2023 10:45-0500 Body weight 100.25 kg Mayo Jeff Other [facility] Other 06-12-2023 10:45-0500 SaO2% (BldA) [Mass fraction] Mayo Portillo Other [facility] Other 05-15-2023 10:00-0500 Body height 148.59 cm Mayo Portillo Other [facility] 05-15-2023 10:00-0500 Body mass index (BMI) [Ratio] 46.22 kg/m2 Mayo Portillo Other [facility] Other 05-15-2023 10:00-0500 Body weight 102.06 kg Mayo Portillo Other [facility] Other 05-15-2023 10:00-0500 Body weight 102.05 kg [facility] 05-15-2023 10:00-0500 Diastolic blood pressure 82 mm[Hg] Mayo Portillo Other [facility] 05-15-2023 10:00-0500 SaO2% (BldA) [Mass fraction] Mayo Portillo Other [facility] Other 05-15-2023 10:00-0500 Systolic blood pressure 128 mm[Hg] Mayo Portillo Other [facility] 04-13-2023 13:30-0500 Body height 148.59 cm Morena Schwerejerri Other [facility] Other 04-13-2023 13:30-0500 Body mass index (BMI) [Ratio] 46.01 kg/m2 Morena Schwerer Other [facility] Other 04-13-2023 13:30-0500 Body weight 101.61 kg Morena Schwerer Other [facility] Other 04-13-2023 13:30-0500 Diastolic blood pressure 78 mm[Hg] Morena Schwerer Other [facility] Other 04-13-2023 13:30-0500 Respiratory rate 20 /min Morena Schwerer Other [facility] Other 04-13-2023 13:30-0500 SaO2% (BldA) [Mass fraction] 97 % Morena Schwerer Other [facility] Other 04-13-2023 13:30-0500 Systolic blood pressure 134 mm[Hg] Morena Schwerer Other [facility] Other 12-12-2022 09:00-0400 Body height 148.59 cm Morena Schwerer Other [facility] Other 12-12-2022 09:00-0400 Body mass index (BMI) [Ratio] 44.78 kg/m2 Morena Schwerer Other [facility] Other 12-12-2022 09:00-0400 Body weight 98.88 kg Morena Schwerer Other [facility] Other 12-12-2022 09:00-0400 Diastolic blood pressure 86 mm[Hg] Morena Schwerer Other [facility] Other 12-12-2022 09:00-0400 Respiratory rate 20 /min Morena Schwerer Other [facility] Other 12-12-2022 09:00-0400 SaO2% (BldA) [Mass fraction] 96 % Morena Schwerer Other [facility] Other 12-12-2022 09:00-0400 Systolic blood pressure 118 mm[Hg] Morena Schwerer Other [facility] Other 06-02-2022 16:00-0500 Body height 148.59 cm Morena Schwerer Other [facility] Other 06-02-2022 16:00-0500 Body mass index (BMI) [Ratio] 50.57 kg/m2 Morena Schwerer Other [facility] Other 06-02-2022 16:00-0500 Body temperature 97.9 [degF] Morena Schwerer Other [facility] Other 06-02-2022 16:00-0500 Body weight 111.68 kg Morena Schwerer Other [facility] Other 06-02-2022 16:00-0500 Diastolic blood pressure 76 mm[Hg] Morena Schwerer Other [facility] Other 06-02-2022 16:00-0500 SaO2% (BldA) [Mass fraction] Morena Schwerer Other [facility] Other 06-02-2022 16:00-0500 Systolic blood pressure 124 mm[Hg] Morena Schwerer Other [facility] Other 04-21-2022 11:15-0500 Body height 148.59 cm Jaquelin Ac Other [employer] Other 04-21-2022 11:15-0500 Body mass index (BMI) [Ratio] 49.3 kg/m2 Jaquelin Ac Other [facility] Other 04-21-2022 11:15-0500 Body temperature 97.4 [degF] Jaquelin Ac Other [facility] Other 04-21-2022 11:15-0500 Body weight 108.86 kg Jaquelin Ac Other [facility] Other 04-21-2022 11:15-0500 Diastolic blood pressure 80 mm[Hg] Jaquelin Ac Other [facility] Other 04-21-2022 11:15-0500 Respiratory rate 20 /min Jaquelin Ac Other [facility] Other 04-21-2022 11:15-0500 SaO2% (BldA) [Mass fraction] Jaquelin Ac Other [facility] Other 04-21-2022 11:15-0500 Systolic blood pressure 130 mm[Hg] Jaquelin Ac Other [facility] Other 02-27-2022 09:15-0400 Body height 148.59 cm Morena Schwerer Other [facility] Other 02-27-2022 09:15-0400 Body temperature 98.8 [degF] Morena Schwerer Other [facility] Other 02-27-2022 09:15-0400 Diastolic blood pressure 78 mm[Hg] Morena Schwerer Other [facility] Other 02-27-2022 09:15-0400 SaO2% (BldA) [Mass fraction] Morena Schwerer Other [facility] [employer] Other 02-27-2022 09:15-0400 Systolic blood pressure 118 mm[Hg] Morena Schwerer Other [facility] [employer] Other 02-26-2022 15:01-0400 Inhaled oxygen flow rate 2 L/min DO Morena Schwerer Work Phone: [facility] 02-26-2022 11:13-0400 Body temperature 98.7 [degF] DO Morena Schwerer Work Phone: [facility] 02-26-2022 11:13-0400 Diastolic blood pressure 55 mm[Hg] DO Morena Schwerer Work Phone: [facility] 02-26-2022 11:13-0400 Heart rate 84 /min DO Morena Schwerer Work Phone: [facility] 02-26-2022 11:13-0400 Respiratory rate 22 /min DO Morena Schwerer Work Phone: [facility] 02-26-2022 11:13-0400 SaO2% (BldA) [Mass fraction] 96 % DO Morena Schwerer Work Phone: [facility] 02-26-2022 11:13-0400 Systolic blood pressure 133 mm[Hg] DO Morena Schwerer Work Phone: [facility] 02-25-2022 05:02-0400 Body weight 109.4 kg DO Morena Schwerer Work Phone: [facility] 02-25-2022 04:50-0400 Inhaled oxygen concentration 35 % DO Morena Schwerer Work Phone: [facility] 02-24-2022 21:35-0400 Body height 147.32 cm DO Morena Schwerer Work Phone: [facility] 02-24-2022 20:00-0400 Diastolic blood pressure 66 mm[Hg] DO Morena Schwerer Work Phone: [facility] 02-24-2022 20:00-0400 Heart rate 86 /min DO Morena Schwerer Work Phone: [facility] 02-24-2022 20:00-0400 Inhaled oxygen concentration 35 % DO Morena Schwerer Work Phone: [facility] 02-24-2022 20:00-0400 Respiratory rate 26 /min DO Morena Schwerer Work Phone: [facility] 02-24-2022 20:00-0400 SaO2% (BldA) [Mass fraction] 95 % DO Morena Schwerer Work Phone: [facility] 02-24-2022 20:00-0400 Systolic blood pressure 144 mm[Hg] DO Morena Schwerer Work Phone: [facility] 02-24-2022 16:01-0400 Body height 147.32 cm DO Morena Schwerer Work Phone: [facility] 02-24-2022 16:01-0400 Body temperature 98.7 [degF] DO Morena Schwerer Work Phone: [facility] 02-24-2022 16:01-0400 Body weight 108.86 kg DO Morena Schwerer Work Phone: [facility] 02-24-2022 10:00-0400 Body height 148.59 cm Morena Schwerer Other [employer] Other 02-24-2022 10:00-0400 Body mass index (BMI) [Ratio] 49.65 kg/m2 Morena Schwerer Other [facility] Other 02-24-2022 10:00-0400 Body weight 109.64 kg Morena Schwerer Other [facility] Other 02-24-2022 10:00-0400 Diastolic blood pressure 80 mm[Hg] Morena Schwerer Other [facility] Other 02-24-2022 10:00-0400 SaO2% (BldA) [Mass fraction] 97 % Morena Schwerer Other [facility] Other 02-24-2022 10:00-0400 Systolic blood pressure 132 mm[Hg] Morena Schwerer Other [facility] [employer] Other 02-06-2022 14:21-0400 Heart rate 82 /min DO Morena Schwerer Work Phone: [facility] 02-06-2022 14:21-0400 Respiratory rate 20 /min DO Morena Schwerer Work Phone: [facility] 02-06-2022 14:21-0400 SaO2% (BldA) [Mass fraction] 96 % DO Morena Schwerer Work Phone: [facility] 02-06-2022 14:05-0400 Diastolic blood pressure 92 mm[Hg] DO Morena Schwerer Work Phone: [facility] 02-06-2022 14:05-0400 Inhaled oxygen concentration 40 % DO Morena Schwerer Work Phone: [facility] 02-06-2022 14:05-0400 Systolic blood pressure 164 mm[Hg] DO Morena Schwerer Work Phone: [facility] 02-06-2022 12:39-0400 Body height 149.86 cm DO Morena Schwerer Work Phone: [facility] 02-06-2022 12:39-0400 Body weight 108.5 kg DO Morena Schwerer Work Phone: [facility] 02-06-2022 12:38-0400 Body temperature 97.1 [degF] DO Morena Schwerer Work Phone: [facility] 12-31-2021 16:15-0400 Body height 148.59 cm Jaquelin Ac Other [facility] Other 12-31-2021 16:15-0400 Body mass index (BMI) [Ratio] 46.63 kg/m2 Jaquelin Ac Other [facility] Other 12-31-2021 16:15-0400 Body temperature 98.4 [degF] Jaquelin Ac Other [facility] Other 12-31-2021 16:15-0400 Body weight 102.97 kg Jaquelin Ac Other [facility] Other 12-31-2021 16:15-0400 Diastolic blood pressure 90 mm[Hg] Jaquelin Ac Other [facility] Other 12-31-2021 16:15-0400 Respiratory rate 20 /min Jaquelin Ac Other [facility] Other 12-31-2021 16:15-0400 SaO2% (BldA) [Mass fraction] 92 % Jaquelin Ac Other [facility] Other 12-31-2021 16:15-0400 Systolic blood pressure 136 mm[Hg] Jaquelin Ac Other [facility] Other 11-22-2021 10:45-0400 Body height 148.59 cm Morena Schwerer Other [facility] [facility] Other 11-22-2021 10:45-0400 Body mass index (BMI) [Ratio] 44.37 kg/m2 Morena Schwerer Other [facility] Other 11-22-2021 10:45-0400 Body temperature 98.3 [degF] Morena Schwerer Other [facility] Other 11-22-2021 10:45-0400 Body weight 97.98 kg Morena Schwerer Other [facility] Other 11-22-2021 10:45-0400 Diastolic blood pressure 84 mm[Hg] Morena Schwerer Other [facility] Other 11-22-2021 10:45-0400 SaO2% (BldA) [Mass fraction] 92 % Morena Schwerer Other [facility] Other 11-22-2021 10:45-0400 Systolic blood pressure 142 mm[Hg] Morena Schwerer Other [facility] Other 07-29-2021 10:30-0400 Body height 148.59 cm Morena Schwerer Other [facility] Other 07-29-2021 10:30-0400 Body mass index (BMI) [Ratio] 41.04 kg/m2 Morena Schwerer Other [facility] Other 07-29-2021 10:30-0400 Body temperature 98.9 [degF] Morena Schwerer Other [facility] Other 07-29-2021 10:30-0400 Body weight 90.63 kg Morena Schwerer Other [facility] Other 07-29-2021 10:30-0400 Diastolic blood pressure 86 mm[Hg] Morena Schwerer Other [facility] Other 07-29-2021 10:30-0400 SaO2% (BldA) [Mass fraction] 94 % Morena Schwerer Other [facility] Other 07-29-2021 10:30-0400 Systolic blood pressure 128 mm[Hg] Morena Schwerer Other [facility] Other 06-24-2021 09:00-0500 Body height 148.59 cm Morena Schwerer Other [facility] Other 06-24-2021 09:00-0500 Body mass index (BMI) [Ratio] 41.54 kg/m2 Morena Schwerer Other [facility] Other 06-24-2021 09:00-0500 Body temperature 97.9 [degF] Morena Schwerer Other [facility] Other 06-24-2021 09:00-0500 Body weight 91.72 kg Morena Schwerer Other [facility] Other 06-24-2021 09:00-0500 Diastolic blood pressure 82 mm[Hg] Omrena Schwerer Other [facility] Other 06-24-2021 09:00-0500 SaO2% (BldA) [Mass fraction] 94 % Morena Schwerer Other [facility] Other 06-24-2021 09:00-0500 Systolic blood pressure 130 mm[Hg] Morena Schwerer Other [facility] Other 06-19-2021 15:15-0500 Body height 148.59 cm Vipul Jimenez Other [facility] Other 06-19-2021 15:15-0500 Body mass index (BMI) [Ratio] 42.52 kg/m2 Vipul Jimenez Other [facility] Other 06-19-2021 15:15-0500 Body weight 93.9 kg Vipul Jimenez Other [facility] Other 04-30-2021 14:30-0500 Body height 148.59 cm Morena Schwerer Other [facility] Other 04-30-2021 14:30-0500 Body mass index (BMI) [Ratio] 42.85 kg/m2 Morena Schwerer Other [facility] Other 04-30-2021 14:30-0500 Body temperature 98.4 [degF] Morena Schwerer Other [facility] Other 04-30-2021 14:30-0500 Body weight 94.62 kg Morena Quinnerer Other [facility] Other 04-30-2021 14:30-0500 Diastolic blood pressure 88 mm[Hg] Morena Schwerer Other [facility] Other 04-30-2021 14:30-0500 SaO2% (BldA) [Mass fraction] 96 % Morena Schwerer Other [facility] Other 04-30-2021 14:30-0500 Systolic blood pressure 128 mm[Hg] Morena Schwerer Other [facility] Other 03-22-2021 11:00-0500 Body height 148.59 cm Radha Ginty Other [facility] Other 03-22-2021 11:00-0500 Body mass index (BMI) [Ratio] 36.98 kg/m2 Radha Ginty Other [facility] Other 03-22-2021 11:00-0500 Body temperature 98.1 [degF] Radha Ginty Other [facility] Other 03-22-2021 11:00-0500 Body weight 81.65 kg Radha Ginty Other [facility] Other 03-22-2021 11:00-0500 Respiratory rate 20 /min Radha Ginty Other [facility] Other 03-22-2021 11:00-0500 SaO2% (BldA) [Mass fraction] 99 % Radha Ginty Other [facility] Other 01-24-2021 10:15-0400 Body height 148.59 cm Morena Schwerer Other [facility] Other 01-24-2021 10:15-0400 Body mass index (BMI) [Ratio] 43.8 kg/m2 Morena Schwerer Other [facility] Other 01-24-2021 10:15-0400 Body weight 96.71 kg Morena Schwerer Other [facility] Other 01-24-2021 10:15-0400 Diastolic blood pressure 72 mm[Hg] Morena Schwerer Other [facility] Other 01-24-2021 10:15-0400 Respiratory rate 18 /min Morena Schwerer Other [facility] Other 01-24-2021 10:15-0400 SaO2% (BldA) [Mass fraction] 97 % Morena Schwerer Other [facility] Other 01-24-2021 10:15-0400 Systolic blood pressure 128 mm[Hg] Morena Schwerer Other [employer] Other Encounters Encounter Date Encounter Type Care Provider Facility Start: 03-24-2024 End: 03-24-2024 ambulatory Morena E Schwerer DO Work Phone: [facility] Work Phone: Start: 03-24-2024 End: 03-24-2024 Patient encounter procedure Morena Schwerer DO Work Phone: [facility] Pulmonary Disease Work Phone: Start: 01-27-2024 End: 01-27-2024 ambulatory DO Morena E Schwerer Work Phone: [facility] Work Phone: Start: 01-27-2024 End: 01-27-2024 Patient encounter procedure DO Morena Schwerer Work Phone: [facility] Work Phone: Start: 12-24-2023 End: 12-24-2023 ambulatory DO Morena E Schwerer Work Phone: [facility] Work Phone: Start: 12-24-2023 End: 12-24-2023 Patient encounter procedure DO Morena Schwerer Work Phone: [facility] Physician [facility] Pulmonary Disease Work Phone: Start: 12-11-2023 End: 12-11-2023 ambulatory DO Morena E Schwerer Work Phone: [facility] Work Phone: Start: 12-11-2023 End: 12-11-2023 Patient encounter procedure DO Morena Schwerer Work Phone: [facility] Family Medicine [place] Work Phone: Start: 11-10-2023 Non-patient / Non-visit DO Jensen tlin Schwerer Work Phone: [facility] Physician [facility] Pulmonary Disease Work Phone: Start: 11-09-2023 End: 11-09-2023 Patient encounter procedure DO Morena Schwerer Work Phone: [facility]-Respiratory Therapy Work Phone: Start: 11-09-2023 End: 11-09-2023 ambulatory DO Morena E Schwerer Work Phone: [facility] Work Phone: Start: 10-30-2023 Non-patient / Non-visit DO Jensen tlin Schwerer Work Phone: [facility] Work Phone: Start: 10-30-2023 End: 10-30-2023 Admission to same day surgery center DO Morena Schwerer Work Phone: [facility]-[employer] Work Phone: Start: 10-30-2023 End: 10-30-2023 ambulatory DO Morena E Schwerer Work Phone: [facility] Work Phone: Start: 10-28-2023 End: 10-28-2023 Patient encounter procedure DO Morena Schwerer Work Phone: [facility]-Pre-Surgical Testing Work Phone: Start: 10-28-2023 End: 10-28-2023 ambulatory DO Morena E Schwerer Work Phone: [facility] Work Phone: Start: 10-28-2023 Encounter for preprocedural laboratory examination Sanya Valadez [facility] Start: 10-22-2023 End: 10-22-2023 ambulatory DO Morena E Schwerer Work Phone: [facility] Work Phone: Start: 10-22-2023 End: 10-22-2023 Patient encounter procedure DO Morena Schwerer Work Phone: [facility] Work Phone: Start: 09-25-2023 Non-patient / Non-visit DO Jensen tlin Schwerer Work Phone: [facility] Work Phone: Start: 09-25-2023 End: 09-25-2023 Patient encounter procedure DO Morena Schwerer Work Phone: [facility]-Electrodiagnostics Work Phone: Start: 09-25-2023 End: 09-25-2023 ambulatory DO Morena E Schwerer Work Phone: [facility] Work Phone: Start: 09-24-2023 End: 09-24-2023 ambulatory DO Morena E Schwerer Work Phone: [facility] Work Phone: Start: 09-24-2023 End: 09-24-2023 Patient encounter procedure DO Morena Schwerer Work Phone: [facility] [address] Work Phone: Start: 09-10-2023 End: 09-10-2023 ambulatory DO Morena E Schwerer Work Phone: [facility] Work Phone: Start: 09-10-2023 End: 09-10-2023 Patient encounter procedure DO Morena Schwerer Work Phone: [facility] Work Phone: Start: 09-04-2023 Non-patient / Non-visit DO Jensen tlin Schwerer Work Phone: [facility] Work Phone: Start: 09-04-2023 End: 09-04-2023 Patient encounter procedure DO Morena Schwerer Work Phone: [facility]-Respiratory Therapy Work Phone: Start: 09-04-2023 End: 09-04-2023 ambulatory DO Morena E Schwerer Work Phone: [facility] Work Phone: Start: 08-27-2023 End: 08-27-2023 Patient encounter procedure DO Morena Schwerer Work Phone: [facility]-Lab [facility] Start: 08-27-2023 End: 08-27-2023 ambulatory DO Morena E Schwerer Work Phone: [facility] Work Phone: Start: 08-27-2023 End: 08-27-2023 ambulatory [facility] Work Phone: Start: 08-27-2023 End: 08-27-2023 Patient encounter procedure Formerly [facility], 1928–1983 Physician [facility] Pulmonary Disease Work Phone: Start: 07-27-2023 End: 07-27-2023 ambulatory [facility] Work Phone: Start: 07-27-2023 End: 07-27-2023 Patient encounter procedure Formerly [facility], [facility]–1983 Physician [facility] Family Medicine [place] Work Phone: Start: 07-21-2023 Non-patient / Non-visit Formerly [facility], [facility] Physician [facility] Work Phone: Start: 06-18-2023 Non-patient / Non-visit Formerly [facility], [facility] Physician [facility] Work Phone: Start: 06-12-2023 End: 06-12-2023 ambulatory Mayo Portillo Other [employer] Other Start: 06-12-2023 Office outpatient vi sit 15 minutes Mayo Portillo [facility] [place] Start: 05-26-2023 (PROC) PROCEDURE Mayo Steele [facility] Start: 05-26-2023 End: 05-26-2023 ambulatory Mayo Portillo Other [employer] Other Start: 05-26-2023 Non-patient / Non-visit Formerly [facility], [facility]–1983 Physician [facility] [employer] Work Phone: Start: 05-21-2023 End: 05-21-2023 ambulatory Morena Schwerer Other [employer] Other Start: 05-21-2023 Telephone encounter Morena Schwerer [employer] [employer] Start: 05-15-2023 End: 05-15-2023 ambulatory Mayo Portillo Other [employer] Other Start: 05-15-2023 Office consultation new/estab patient 60 min Mayolisy Portillo [facility] [place] Start: 05-15-2023 End: 05-15-2023 Patient encounter procedure Formerly [facility], [facility]–1983 Physician [facility] [place] Work Phone: Start: 04-13-2023 End: 04-13-2023 ambulatory Morena Schwerer Other [employer] Other Start: 04-13-2023 Office outpatient vi sit 25 minutes Morena Schwerer [facility] [place] Start: 04-07-2023 End: 04-07-2023 Patient encounter procedure DO Morena Schwerer Work Phone: [facility] [address] [place] Work Phone: Start: 04-07-2023 End: 04-07-2023 ambulatory DO Morena E Schwerer Work Phone: [facility] Work Phone: Start: 01-30-2023 End: 01-30-2023 ambulatory Kamal Chaban Other [employer] Other Start: 01-30-2023 Telephone encounter Kamal Parvinban [facility] Start: 12-12-2022 Office outpatient vi sit 25 minutes Morena Schwerer [facility] [place] Start: 12-12-2022 Telephone encounter Morena Schwerer [facility] [place] Start: 12-12-2022 End: 12-12-2022 ambulatory Morena E Schwerer [facility] [employer] Other Start: 09-02-2022 End: 09-02-2022 ambulatory DO Morena E Schwerer Work Phone: [facility] Work Phone: Start: 09-02-2022 End: 09-02-2022 Patient encounter procedure DO Morena Schwerer Work Phone: [facility] Work Phone: Start: 07-28-2022 End: 07-28-2022 ambulatory Morena Schwerer Other [employer] Other Start: 07-28-2022 Telephone encounter Morena Schwerer [facility] [place] Start: 06-02-2022 End: 06-02-2022 ambulatory Morena Schwerer Other [employer] Other Start: 06-02-2022 Office outpatient vi sit 25 minutes Morena Schwerer [facility] [place] Start: 05-23-2022 End: 05-23-2022 ambulatory Morena Schwerer Other [employer] Other Start: 05-23-2022 Telephone encounter Morena Schwerer [facility] Family [facility] [place] Start: 04-21-2022 End: 04-21-2022 ambulatory Kamal Chaban Other [employer] Other Start: 04-21-2022 Office outpatient vi sit 25 minutes Kamal Chaban [facility] Start: 04-17-2022 End: 04-17-2022 ambulatory DO Morena E Schwerer Work Phone: [facility] Work Phone: Start: 04-17-2022 End: 04-17-2022 Patient encounter procedure DO Morena Schwerer Work Phone: [facility]-Sleep Lab Start: 04-09-2022 End: 04-09-2022 ambulatory DO Morena E Schwerer Work Phone: [facility] Work Phone: Start: 04-09-2022 End: 04-09-2022 Patient encounter procedure DO Morena Schwerer Work Phone: [facility]-Sleep Lab Start: 03-25-2022 End: 03-25-2022 ambulatory DO Morena E Schwerer Work Phone: [facility] Work Phone: Start: 03-25-2022 End: 03-25-2022 Patient encounter procedure DO Morena Schwerer Work Phone: [facility]-CT Scan [address] [place] Start: 03-18-2022 Telephone encounter Morena Schwerer [facility] Start: 03-18-2022 End: 03-18-[address] DOCTOR CASTRO [facility] [employer] Other Start: 03-10-2022 End: 03-10-2022 ambulatory Morena Schwerer Other [employer] Other Start: 03-10-2022 Telephone encounter Morena Schwerer [facility] Start: 03-07-2022 End: 03-07-2022 ambulatory Morena Schwerer Other [employer] Other Start: 03-07-2022 Telephone encounter Morena Schwerer [facility] Family [facility] [place] Start: 03-03-2022 End: 03-03-2022 ambulatory Morena Schwerer Other [employer] Other Start: 03-03-2022 Telephone encounter Morena Schwerer [facility] [place] Start: 02-27-2022 End: 02-27-2022 ambulatory Morena Schwerer Other [employer] Other Start: 02-27-2022 Office outpatient vi sit 25 minutes Morena Schwerer [facility] [place] Start: 02-27-2022 Telephone encounter Morena Schwerer [facility] [place] Start: 02-24-2022 End: 02-26-2022 Evaluation and management of inpatient DO Morena Schwerer Work Phone: [facility] [place] [facility] Start: 02-24-2022 End: 02-24-2022 ambulatory Morena Schwerer Other [employer] Other Start: 02-24-2022 Office outpatient vi sit 40 minutes Morena Schwerer [facility] Family [facility] [place] Start: 02-17-2022 End: 02-17-2022 ambulatory DO Morena E Schwerer Work Phone: [facility] Work Phone: Start: 02-17-2022 End: 02-17-2022 Discharged Recurring DO Morena Schwerer Work Phone: [facility]-Physical Therapy [address] Start: 02-17-2022 Registered Recurring DO Kaitli n Schwerer Work Phone: [facility]-Physical Therapy [address] Start: 02-07-2022 End: 02-07-2022 ambulatory Morena Schwerer Other [employer] Other Start: 02-07-2022 Telephone encounter Morena Schwerer [facility] [place] Start: 02-06-2022 End: 02-06-2022 Emergency department patient visit DO Morena Quinnerer Work Phone: [facility]-Emergency Room Start: 02-06-2022 Registered Recurring DO Ken Quinnerer Work Phone: [facility]-Physical Therapy [address] Start: 01-28-2022 End: 01-28-2022 ambulatory Morena Schwerer Other [employer] Other Start: 01-28-2022 Telephone encounter Morena Schwerer [facility] Start: 01-14-2022 End: 01-14-2022 ambulatory Clara Angie Other [employer] Other Start: 01-14-2022 Telephone encounter Clara Angie [facility] Start: 12-31-2021 End: 12-31-2021 ambulatory Kamal Chaban Other [employer] Other Start: 12-31-2021 Office outpatient vi sit 40 minutes Kamal Chaban [facility] Start: 12-12-2021 End: 12-12-2021 ambulatory Morena Schwerer Other [employer] Other Start: 12-12-2021 Telephone encounter Morena Schwerer [facility] Start: 12-12-2021 End: 12-12-2021 Patient encounter procedure DO Morena Quinnerer Work Phone: [facility]-Lab [facility] Start: 12-03-2021 End: 12-03-2021 ambulatory Morena Schwerer Other [employer] Other Start: 12-03-2021 Telephone encounter Morena Schwerer [facility] Start: 11-22-2021 End: 11-22-2021 ambulatory Morena Schwerer Other [employer] Other Start: 11-22-2021 Office outpatient vi sit 25 minutes Morena Schwerer [facility] Start: 11-22-2021 End: 11-22-2021 Patient encounter procedure DO Morena Schwerer Work Phone: [facility]-X[facility]Ray [facility] Start: 10-01-2021 End: 10-01-2021 ambulatory Morena Schwerer Other [employer] Other Start: 10-01-2021 Telephone encounter Morena Schwerer [facility] Start: 09-03-2021 End: 09-03-2021 ambulatory Morena Schwerer Other [employer] Other Start: 09-03-2021 Telephone encounter Morena Schwerer [facility] Start: 08-02-2021 End: 08-02-2021 ambulatory Morena Schwerer Other [employer] Other Start: 08-02-2021 Telephone encounter Morena Schwerer [facility] Start: 07-29-2021 End: 07-29-2021 ambulatory Morena Schwerer Other [employer] Other Start: 07-29-2021 Office outpatient vi sit 15 minutes Morena Schwerer [facility] Start: 07-04-2021 End: 07-04-2021 ambulatory Morena Schwerer Other [employer] Other Start: 07-04-2021 Telephone encounter Morena Schwerer [facility] Start: 06-24-2021 End: 06-24-2021 ambulatory Morena Schwerer Other [employer] Other Start: 06-24-2021 Office outpatient vi sit 25 minutes Morena Schwerer [facility] [place] Start: 06-19-2021 End: 06-19-2021 ambulatory Vipul Jimenez Other [employer] Other Start: 06-19-2021 Office outpatient vi sit 25 minutes Vipul Jimenez [facility] Start: 06-17-2021 End: 06-17-2021 ambulatory Morena Schwerer Other [employer] Other Start: 06-17-2021 Telephone encounter Morena Schwerer [facility] [place] Start: 06-12-2021 End: 06-12-2021 ambulatory Vipul Jimenez Other [employer] Other Start: 06-12-2021 Telephone encounter Morean Schwerer [facility] [place] Start: 06-11-2021 End: 06-11-2021 ambulatory Vipul Jimenez Other [employer] Other Start: 06-11-2021 Telephone encounter Vipul Jimenez [facility] Start: 06-10-2021 End: 06-10-2021 ambulatory Morena Schwerer Other [employer] Other Start: 06-10-2021 Telephone encounter Morena Schwerer [facility] [place] Start: 06-09-2021 End: 06-11-[address] DOCTOR CASTRO Facility: Start: 05-08-2021 End: 05-08-2021 ambulatory Morena Schwerer Other [employer] Other Start: 05-08-2021 Telephone encounter Morena Schwerer [facility] [place] Start: 04-30-2021 End: 04-30-2021 ambulatory Morena Schwerer Other [employer] Other Start: 04-30-2021 Office outpatient vi sit 25 minutes Morena Schwerer [facility] [place] Start: 04-23-2021 End: 04-23-2021 ambulatory Vipul Jimenez Other [employer] Other Start: 04-23-2021 Telephone encounter Vipul Jeffreylaura [facility] Gastroenterology Start: 04-22-2021 End: 04-22-2021 ambulatory Morena Cheyenneerer Other [employer] Other Start: 04-22-2021 Telephone encounter Morena Schwerer [facility] Family [facility] [place] Start: 04-17-2021 End: 04-17-2021 ambulatory Vipul Jimenez Other [employer] Other Start: 04-17-2021 Telephone encounter Vipul Jimenez [facility] Gastroenterology Start: 03-22-2021 End: 03-22-2021 ambulatory Radha Ginty Other [employer] Other Start: 03-22-2021 Office outpatient vi sit 15 minutes Radha Kaylahnty [facility] Urgent Care [facility] Start: 02-14-2021 End: 02-14-2021 ambulatory Vipul Tony Other [employer] Other Start: 02-14-2021 Telephone encounter Vipul Jimenez [facility] Gastroenterology Start: 01-31-2021 Telephone encounter Morena Schwerer [facility] Family [facility] [place] Start: 01-24-2021 Office outpatient vi sit 25 minutes Morena Schwerer [facility] [place] Procedures Date Procedure Procedure Detail Performing Clinician Start: 01-27-2024 Screening mammograph y of bilateral breasts DO Morena Schwerer Work Phone: Start: 10-30-2023 CL LHC & COR Angio DO K aitlin Schwerer Work Phone: Start: 09-25-2023 Radionuclide myocard ial perfusion stress study DO Morena Bravo Work Phone: Start: 09-24-2023 CT of lungs DO Morena Bravo Work Phone: Start: 04-07-2023 MR lumbar spine wo con DO Morena Bravo Work Phone: Start: 04-07-2023 XR pre/post mri xray DO Morena Bravo Work Phone: Start: 09-02-2022 Screening mammograph y of bilateral breasts DO Morena Bravo Work Phone: Start: 03-25-2022 CT of thorax with contrast DO Morena Bravo Work Phone: Start: 02-24-2022 Plain chest X-ray DO Alannah Bravo Work Phone: Start: 02-06-2022 Plain chest X-ray DO Alannah Bravo Work Phone: Start: 11-22-2021 X-ray of lumbar spin e, six views including bending views DO Morena Bravo Work Phone: Respiratory Panel (PCR) DO Rosalina Bravo Work Phone: SARS-CoV-2, Influenz a & RSV (PCR) DO Morena Bravo Work Phone: Plan of Treatment Date Care Activity Detail Author Start: 10-30-2023 [facility] Start: 10-22-2023 Patient referral [facility] Work Phone: Start: 09-25-2023 Radionuclide myocard ial perfusion stress study NM darci perf SPECT rest & str [facility] Start: 09-25-2023 SPECT Heart perfusio n at rest and W stress and W radionuclide IV [facility] Start: 09-10-2023 [facility] Start: 09-03-2023 Patient referral [facility] Work Phone: Start: 03-01-2022 Blood chemistry [facility] Start: 03-01-2022 Magnesium measurement [facility] Start: 03-01-2022 [facility] Start: 02-28-2022 Blood chemistry [facility] Start: 02-28-2022 Magnesium measurement [facility] Start: 02-28-2022 [facility] Start: 02-27-2022 Blood chemistry [facility] Start: 02-27-2022 Magnesium measurement [facility] Start: 02-27-2022 [facility] Start: 02-26-2022 Blood chemistry [facility] Start: 02-26-2022 Magnesium measurement [facility] Start: 02-26-2022 End: 02-26-2022 [facility] Start: 02-25-2022 Blood chemistry [facility] Start: 02-25-2022 Magnesium measurement [facility] Start: 02-25-2022 [facility] Start: 02-25-2022 [facility] Start: 02-24-2022 Hospital admission [facility] Start: 02-24-2022 [facility] Start: 01-02-2022 [facility]istered [facility] Comprehensive metabo lic 2000 panel - Serum or Plasma [facility] CT Unspecified body region [facility] CT Unspecified body region [facility] MG Breast - bilatera l Screening [facility] Patient Education [facility] Work Phone: Patient referral [facility] Work Phone: [facility] Immunizations Immunization Date Immunization Notes Care Provider Fa sha 05-14-2023 COVID-19 (MODERNA) 12Y and older DO Morena Bravo Work Phone: [facility] 03-09-2023 Flu Shot - Documentation Purposes Only Morena Bravo Other [facility] 02-28-2022 influenza, seasonal, injectable Morena Schwerer Other [facility] 06-13-2021 influenza, injectabl e, quadrivalent, preservative free DO Morena Schwerer Work Phone: [facility] 06-13-2021 influenza, seasonal, injectable Morena Schwerer Other [facility] 04-18-2021 COVID-19 Vaccine Moderna - Documentation Purposes Only Morena Schwerer Other [facility] 08-31-2020 COVID-19 mRNA-1273 (Moderna) DO Morena Schwerer Work Phone: [facility] 07-31-2020 COVID-19 Vaccine Moderna - Documentation Purposes Only Morena Schwerer Other [facility] 07-03-2020 COVID-19 Vaccine Moderna - Documentation Purposes Only Morena Schwerer Other [facility] 02-12-2020 zoster vaccine recombinant Morena Schwerer Other [facility] 09-19-2019 pneumococcal polysaccharide vaccine, 23 valent Morena Schwerer Other [facility] 09-19-2019 zoster vaccine recombinant Morena Schwerer Other [facility] 07-18-2019 Kenalog -40 mg Morena Schwe rer Other [employer] Other 10-04-2018 tetanus toxoid, redu clifton diphtheria toxoid, and acellular pertussis vaccine, adsorbed DO Morena Schwerer Work Phone: [facility] 05-04-2018 pneumococcal polysaccharide vaccine, 23 valent Morena Schwerer Other [facility] Payers Date Payer Category Payer Medicare [id number] 2022 Private Health Insurance [id number] 2022 Self-pay [id number] 2022 Unknown [id number] 1963 Unknown [id number] 1965 Unknown [id number]. [id number] 1961 Medicare [id number] Medicare [id number] Medicare [id number] Private Health Insurance [employer] [facility] [id number] Private Health Insurance Aet readfy [id number] Unknown Regular Auto/Liability [id number] Unknown HCAP/HFA/FAP Active [id number] Unknown [id number] Unknown [id number]. 531 Unknown [id number]. 531 Unknown [id number]. 531 Unknown [id number] 531 Unknown [id number] 531 Unknown [id number] 531 Unknown [id number] 531 Unknown [id number]. 531 Social History Date Type Detail Facility Sex Assigned At [employer] Other Start: 06-13-2021 End: 02-06-2022 Tobacco smoking status [facility] Smoker (finding) [facility] Start: 1965 Sex Assigned At Female [facility] Start: 02-24-2022 End: 10-30-2023 Tobacco smoking status [facility] Ex-smoker (finding) [facility] Start: 12-24-2023 End: 12-24-2023 Tobacco smoking status [facility] Current some day smoker [facility] Start: 03-24-2024 Sex Female (finding) [facility] Medical Equipment Procedure Code Equipment Code Equipment [...] Facility 02-26-2022 Functional status Patient at Baseline [facility] Work Phone: Mental Status Date Assessment Result Facility 02-26-2022 Cognitive function Cognitive Sta tus Patient at Baseline [facility] Work Phone: Clinical Notes 01-24-2021 to 10-30-2023 Note Date & Type Note Facility 10-30-2023 Procedure note [facility] 09-25-2023 Procedure note [facility] 06-12-2023 Evaluation note Encounter Date Diagnosis [...] nerve blocks in the future if needed [employer] Other 01-12-2024 Evaluation note* Encounter Date Diagnosis [...] negative findings were considered in medical decision-making. [employer] Other 12-11-2023 Evaluation note* Encounter Date Diagnosis [...] want anesthesia due to poor respiratory status. [employer] Other 09-29-2023 Evaluation note* Encounter Date Diagnosis Assessment Notes Treatment Notes Treatment Clinical Notes Jan, Asthma-COPD overlap syndrome (ICD-10 - J44.9) [employer] Other 08-11-2023 Evaluation note* Encounter Date Diagnosis [...] (acquired) (ICD-10 - E03.9) will update labs. [employer] Other 03-27-2023 Evaluation note* Encounter Date Diagnosis Assessment Notes Treatment Notes Treatment Clinical Notes Jul, Type 2 diabetes mellitus without complication, without long-term current use of insulin (ICD-10 - E11.9) [employer] Other 01-30-2023 Evaluation note* Encounter Date Diagnosis [...] side (ICD-10 - M54.41) will refill ibu [employer] Other 12-19-2022 Evaluation note* Encounter Date Diagnosis [...] index [BMI] 45.0-49.9, adult (ICD-10 - Z68.42) [employer] Other 11-15-2022 Evaluation note* Encounter Date Diagnosis Assessment Notes Treatment Notes Treatment Clinical Notes Mar, Mass of right lung (ICD-10 - R91.8) [employer] Other 11-04-2022 Evaluation note* Encounter Date Diagnosis Assessment Notes Treatment Notes Treatment Clinical Notes Mar, Type 2 diabetes mellitus without complication, without long-term current use of insulin (ICD-10 - E11.9) [employer] Other 10-27-2022 Evaluation note* Encounter Date Diagnosis [...] 5-6 weeks. Needs script for wheelchair to jin [employer]. She is unable to use cane or walker due to poor respiratory status. this wheelchair is needed in and out of the home to preform ADLs. Manual wheelchair. [employer] Other 10-26-2022 Hospital Discharge instructionsAmbulatory Orders* Initiate Home Health Time Frame: 02/26/22, Location: Determined By Patient Additional Instructions Continue oxygen at Continue to monitor glucose levels as before Home health to manage: -RN/PT/OT to eval and treat -Monitor VS per protocol -Fall precautions -Perform respiratory assessments -Assist with medication management and education -[facility] Work Phone: [phone] Evaluation note* Encounter Date Diagnosis Assessment Notes [...] Feb, Asthma-COPD overlap syndrome (ICD-10 - J44.9) [employer] Other 10-07-2022 Evaluation note* Encounter Date Diagnosis Assessment Notes Treatment Notes Treatment Clinical Notes Feb, Asthma-COPD overlap syndrome (ICD-10 - J44.9) [employer] Other 09-27-2022 Evaluation note* Encounter Date Diagnosis Assessment Notes Treatment Notes Treatment Clinical Notes Jan, Type 2 diabetes mellitus without complication, without long-term current use of insulin (ICD-10 - E11.9) [employer] Other 08-30-2022 Evaluation note* Encounter Date Diagnosis [...] and treatment was discussed today at length [employer] Other 08-11-2022 Evaluation note* Encounter Date Diagnosis Assessment Notes Treatment Notes Treatment Clinical Notes Dec, Type 2 diabetes mellitus without complication, without long-term current use of insulin (ICD-10 - E11.9) Dec, Hypothyroidism (acquired) (ICD-10 - E03.9) Dec, Hyperlipemia, mixed (ICD-10 - E78.2) [employer] Other 08-02-2022 Evaluation note* Encounter Date Diagnosis Assessment Notes Treatment Notes Treatment Clinical Notes Dec, Lower extremity edema (ICD-10 - R60.0) Dec, Type 2 diabetes mellitus without complication, without long-term current use of insulin (ICD-10 - E11.9) [employer] Other 07-22-2022 Evaluation note* Encounter Date Diagnosis [...] with Dr. Ac end of the month. [employer] Other 05-03-2022 Evaluation note* Encounter Date Diagnosis Assessment Notes Treatment Notes Treatment Clinical Notes September, Type 2 diabetes mellitus without complication, without long-term current use of insulin (ICD-10 - E11.9) [employer] Other 04-01-2022 Evaluation note* Encounter Date Diagnosis Assessment Notes Treatment Notes Treatment Clinical Notes Aug, Type 2 diabetes mellitus without complication, without long-term current use of insulin (ICD-10 - E11.9) [employer] Other 03-28-2022 Evaluation note* Encounter Date Diagnosis [...] back into health department for follow up. [employer] Other 02-21-2022 Evaluation note* Encounter Date Diagnosis [...] started back on it. continue bumex daily. [employer] Other 02-16-2022 Evaluation note* Encounter Date Diagnosis Assessment Notes Treatment Notes Treatment Clinical Notes Jun, Abdominal pain (ICD- 10 - R10.9) HIDA W/ CCK START TRIAL OF FLAGYL 500 MG BID FOR 10 DAY CONTINUE DICYCLOMINE WITHOUT CHANGE Jun, Nausea & vomiting (ICD-10 - R11.2) Jun, Gastroenteritis (ICD-10 - K52.9) [employer] Other 01-05-2022 Evaluation note* Encounter Date Diagnosis Assessment Notes Treatment Notes Treatment Clinical Notes May, Hyperlipemia, mixed (ICD-10 - E78.2) [employer] Other 12-28-2021 Evaluation note* Encounter Date Diagnosis [...] February. She is no longer on NSAIDs. [employer] Other 12-20-2021 Evaluation note* Encounter Date Diagnosis Assessment Notes Treatment Notes Treatment Clinical Notes Apr, Type 2 diabetes mellitus without complication, without long-term current use of insulin (ICD-10 - E11.9) [employer] Other 12-15-2021 Evaluation note* Encounter Date Diagnosis Assessment Notes Treatment Notes Treatment Clinical Notes Apr, Hepatitis C (ICD-10 - B19.20) [employer] Other 11-19-2021 Evaluation note* Encounter Date Diagnosis [...] Patient care instructions given in writting by [facility] document [employer] Other 10-14-2021 Evaluation note* Encounter Date Diagnosis Assessment Notes Treatment Notes Treatment Clinical Notes Feb, Hepatitis C (ICD-10 - B19.20) [employer] Other 09-30-2021 Evaluation note* Encounter Date Diagnosis Assessment Notes Treatment Notes Treatment Clinical Notes Jan, Hyperlipemia, mixed (ICD-10 - E78.2) [employer] Other 09-23-2021 Evaluation note* Encounter Date Diagnosis [...] she is diabetic and LDL was 120. [place] [employer] Other Evaluation noteNo [facility] Other Evaluation noteNo assessment information available [facility] Work Phone: Evaluation note* Diagnosis Onset Date Resolution Status Acute respiratory distress a cute COPD exacerbation acute Diabetes mellitus type 2 in obese acute Hypercapnic respiratory failure acute [facility] Work Phone: Evaluation note* Diagnosis Onset Date Resolution Status Diabetes mellitus type 2 in obese acute [facility] Work Phone: Evaluation note* Diagnosis Onset Date [...] acute History of tobacco abuse acu te FPC (current) use of inhaled steroids acute Morbid obesity acute Multiple pulmonary nodules a cute Obstructive sleep apnea acut e Pleural plaque acute Severe persistent asthma, uncomplicated acute [facility] Work Phone: Evaluation note* Diagnosis Onset Date Resolution Status COPD exacerbation acute Hypertension acute Chest pain acute DM2 (diabetes mellitus, type 2) acute FPC (current) use of inhaled steroids acute Multiple pulmonary nodules a cute Obstructive sleep apnea acut e Pleural plaque acute Severe persistent asthma, uncomplicated acute Encounter for screening for lung cancer resolved History of cocaine abuse res olved History of methamphetamine abuse resolved [facility] Work Phone: Evaluation note* Diagnosis Onset Date Resolution Status COPD exacerbation acute Hypertension acute Chest pain acute DM2 (diabetes mellitus, type 2) acute 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 acute Multiple pulmonary nodules a cute Obstructive sleep apnea acut e Pleural plaque acute Severe persistent asthma, uncomplicated acute Encounter for screening for lung cancer resolved History of cocaine abuse res olved History of methamphetamine abuse resolved Abnormal EKG acute Asthma-COPD overlap syndrome acute Atypical chest pain acute Chronic respiratory failure with hypoxia acute [facility] Work Phone: Evaluation note* Diagnosis Onset Date Resolution Status COPD exacerbation acute Hypertension acute Chest pain acute DM2 (diabetes mellitus, type 2) acute 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 acute Multiple [...] with hypoxia acute Exertional chest pain acute [facility] Work Phone: evaluation note* Diagnosis Onset Date Resolution Status Chest pain acute DM2 (diabetes mellitus, type 2) acute FPC (current) use of inhaled steroids acute Multiple [...] with hypoxia acute Exertional chest pain acute [facility] Work Phone: Evaluation note* Diagnosis Onset Date Resolution Status Abnormal cardiovascular stress test acute Asthma-COPD overlap syndrome acute Chronic respiratory failure with hypoxia acute Exertional chest pain acute DM2 (diabetes mellitus, type 2) acute [facility] Work Phone: evaluation note* Diagnosis Onset Date [...] acute DM2 (diabetes mellitus, type 2) acute FPC (current) use of inhaled steroids acute Multiple pulmonary nodules a cute Obstructive sleep apnea acut e Pleural plaque acute Severe persistent asthma, uncomplicated acute Encounter for screening for lung cancer resolved History of cocaine abuse res olved History of methamphetamine abuse resolved [facility] Work Phone: Evaluation note* Diagnosis Onset Date Resolution Status Chronic respiratory failure with hypoxia acute DM2 (diabetes mellitus, type 2) acute Foreign body in foot acute Hypertension acute 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 acute DM2 (diabetes mellitus, type 2) acute FPC (current) use of inhaled steroids acute Multiple pulmonary nodules a cute Obstructive sleep apnea acut e Pleural plaque acute Severe persistent asthma, uncomplicated acute Encounter for screening for lung cancer resolved History of cocaine abuse res olved History of methamphetamine abuse resolved [facility] Work Phone: Evaluation note* Diagnosis Onset Date Resolution Status Admit Date 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 acute N ovember 2023 11:00am DM2 (diabetes mellitus, type 2) acut e March 24, 2024 11:00am 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 acute March 24, 2024 11:00am Multiple pulmonary nodules acute March 24, 2024 11:00am Obstructive sleep apnea acute N ovember 2023 11:00am Pleural plaque acute March 052023 11:00am Severe persistent asthma, uncomplicated acute March 24, 2 024 11:00am History of cocaine abuse resolved March 24, 2024 11:00am History of methamphetamine abuse resolved March 24, 024 11:00am Chronic respiratory failure with hypoxia deleted March 24, 2 024 11:00am Morbid obesity deleted March 052023 11:00am [facility] Work Phone: History and physical note Author Amish Mills [facility] February 24, 2022 8:44pm Note Date/Time February 24, 2022 8 :39pm [facility] [address] [place] [address] Hospitalist H&P Signed Patient: Cynthia Lozano MR#: [id number] : 1965 Acct:[id number] Age/Sex: 56 / F Adm Date: 2 Loc: 4 Room: [address] [place] [address] Type: ADM IN Attending Dr: Amish Mills DO Copies to: DO Amish Lock DO~ HPI DATE OF EXAMINATION: 02/24/22 CHIEF COMPLAINT: [...] History (Updated 02/24/22 @ 20:38 by Amish Mills DO) Alcohol abuse Apnea Asthma Bipolar 1 [...] 16:30 Plt Count 363 x10E3/uL (150-450) 02/24/22 16: MPV 7.6 fl (6.3-10.7) 02/24/22 16:30 Neut % (Auto) 71.4 % (.) 02/24/22 16: Lymph % (Auto) 20.6 % (.) 02/24/22 16:30 Victoria % (Auto) 5.1 % (.) 02/24/22 16:30 Eos % (Auto) 1.6 % (.) 02/24/22 16:30 Baso % (Auto) 1.3 % (.) 02/24/22 16:30 Neut # (Auto) 7.8 x10E3/uL (1.8-7.7) H 02/24/22 16:30 Lymph # (Auto) 2.2 x10E3/uL (1.00-4.8) 02/24/22 16:30 Victoria # (Auto) 0.6 x10E3/uL (0.0-0.8) 02/24/22 16:30 [...] heparin ? Full code Documented By: Amish Mills DO 02/24/222033 Signed By: <Electronically signed by mAish Mills DO> 02/24/222043 [facility] Work Phone: History general Narrative - Reported* Type Description Date Medical History Bipolar/schizo Medical History COPD Medical History Addiction Medical History asthma Surgical History polypectomy of right lung 2004 Surgical History x 3 Hospitalization History see above Hospitalization History COPD 10/2020 [employer] Other History general [facility] - [facility] Other Hishqcw general Narrative - Reported* Type Description Date Medical History Bipolar/schizo Medical History COPD Medical History Addiction Medical History asthma Surgical History polypectomy of right lung 2004 Surgical History polypectomy of right lung 2004 Surgical History x 3 Surgical History x 3 Hospitalization History see above Hospitalization History COPD 10/2020 [facility] Other Hospital Discharge instructionsAmbulatory Orders* Referral to Cardiology Location: None [facility] Work Phone: Hospital Discharge instructionsAmbulatory Orders* Cardiac Catheterization Location: None [facility] Work Phone: Hospital Discharge instructions Additional Instructions DISCHARGE INSTRUCTIONS FOR CARDIAC LIDAR ANALYST PROCEDURE: Heart Cath The following instructions have [...] cold, numb, blue or white, call the animal breeder immediately. 4. ACTIVITY: You are advised to [...] bottle, follow the instructions on the bottle. [facility] is not responsible for incorrect prescription information provided by the patient during their visit. Do not stop your medications without consulting your health care provider. 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 Morbid obesity Multiple pulmonary nodules Obstructive sleep apnea Pleural plaque Severe persistent asthma, uncomplicated Chief Complaint Amb Documentation Amb Documentation 3 month follow up 6 Month f/u- Astma w/COPD 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 E66.9 I10 j45.50 j45.50 Chest Pain, Unspecified Reason for Visit COPD exacerbation Hypertension Chest pain DM2 (diabetes mellitus, type 2) FPC (current) use of inhaled steroids Multiple pulmonary [...] Chest pain DM2 (diabetes mellitus, type 2) FPC (current) use of inhaled steroids Multiple pulmonary [...] Chest pain DM2 (diabetes mellitus, type 2) 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 Multiple pulmonary [...] Chest pain DM2 (diabetes mellitus, type 2) 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 Multiple pulmonary [...] Chest pain DM2 (diabetes mellitus, type 2) FPC (current) use of inhaled steroids Multiple pulmonary [...] Chest pain DM2 (diabetes mellitus, type 2) FPC (current) use of inhaled steroids Multiple pulmonary [...] Chest pain DM2 (diabetes mellitus, type 2) 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 Multiple pulmonary [...] Chest pain DM2 (diabetes mellitus, type 2) 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 Multiple pulmonary [...] breath j45.50 j45.50 4 month follow up 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 f/u Asthma, SHARAD Reason for Visit Abnormal cardiovascu lar stress test Asthma-COPD overlap syndrome Chronic respiratory failure with hypoxia Exertional chest pain Chronic respiratory failure with hypoxia DM2 (diabetes mellitus, type 2) Foreign body in foot Hypertension Chest pain Cigarette nicotine dependence with nicotine-induced disorder DM2 (diabetes mellitus, type 2) FPC (current) use of inhaled steroids Multiple pulmonary nodules Obstructive sleep apnea Pleural plaque Severe persistent asthma, uncomplicated Encounter for screening for lung cancer History of cocaine abuse History of methamphetamine abuse Chief Complaint abn stress test, exe tional shortness of breath abn stress test, exetional shortness of breath j45.50 j45.50 4 month follow up 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 f/u Asthma, SHARAD z12.31 Reason for Visit Chronic respiratory failure with hypoxia DM2 (diabetes mellitus, type 2) Foreign body in foot Hypertension Cigarette nicotine dependence with nicotine-induced disorder DM2 (diabetes mellitus, type 2) 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 Multiple pulmonary nodules Obstructive sleep apnea Pleural plaque Severe persistent asthma, uncomplicated Encounter for screening for lung cancer History of cocaine abuse History of methamphetamine abuse Chief Complaint Admit Date z.January 27, 2024 1:40pm 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 f/u Asthma, SHARAD March 24, 2024 11:00am Reason for Visit Admit Date 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 March 24, 2024 11:00am DM2 (diabetes mellitus, type 2) March 24, 2024 11:00am FPC (current) use of inhaled stero ids March 24, 2024 11:00am Multiple pulmonary nodules March 11:00am Obstructive sleep apnea March 24, 2 024 11:00am Pleural plaque March 24, 2024 11:00am Severe persistent asthma, uncomplicated November 21st, 2024 11:00am History of cocaine abuse March 24, 2024 11:00am History of methamphetamine abuse Novembe r 2023 11:00am Chronic respiratory failure with hypoxia March 24, 2024 11:00am Morbid obesity March 24, 2024 11:00am Family History Relationship Condition Age at Onset [...] Time Advance Directives No August 26 10:00am Advance Directive Response Recorded Date/ Time Advance Directives No August 26 9:00am Summary Purpose Reason for Referral Reason jeff - radicular low back pain Diagnosis 1 Lumbar radiculopathy (M54.16) Referral Organization [facility] Referring Provider First Name Morena Referring Provider Last Name Shelly Referring Provider Specialty Family [facility] Referred Organization Unknown Facility Referred Provider Specialty Pain Medicin e Referral Priority Routine Reason due for repeat colon oscopy Diagnosis 1 Colon cancer screeni ramiro (Z12.11) Referral Organization [facility] [place] Referring Provider First Name Morena Referring Provider Last Name Shelly Referring Provider Specialty Family Medi cine Referred Organization Unknown Facility Referred Provider Specialty Gastroentero logy Referral Priority Routine Additional Source Comments REASON FOR VISIT (unrecogniz ed section and content) 2 month Follow upREFILLHEP C -APPROVED#5 COVID EXPOSURE, SOB, HEADACHE, BODY ACHES, COUGHMEDICATIONREFILLNo Information3 month Follow upMED REFILLHospital visit FOLLOW UPNo InformationClinical Acute NceigehITOO-[id number] Acute IllnessPT HERE FOR FOLLOW UP [facility] ER VISIT & THB INPT ([facility] SENDING RECORDS FROM [facility])refill3 month Follow uprefillrefillrefill3 month Follow uprefilllabsAsthma-COPD overlap syndrome and GERDNo InformationrefillINTEGRIS BAP[facility]IST [facility] [place]-[facility]3 month Follow [id number] f/ucommoderefillNo InformationNo Information3 mo f/urefill3 month Follow hbjvcughI4r, needs rf of OzempicNo InformationNo Information4 month [...] Dates Morena Bravo DO Primary Care Pro adam Attending Provider Active Start: July 27, 2023 End: July 27, 2023 Team Status: Inactive Member Role Status Dates Morena Bravo DO Primary Care Provider Active Start: August 27, 2023 End: August 27, 2023 Nirav Trujillo , DO Attending Provider Active St art: August 27, 2023 End: August 27, 2023 DME Active Start: August 262023 End: August 27, 2023 Team Status: Inactive Member Role Status Dates Morena Bravo , DO Primary Care Provider, Referri ng Provider Active Referral Self Attending Provider Active Team Status: Inactive Member Role Status Dates Morena Ambrosior , DO Primary Care Provider, Attendi ng Provider Active Team Status: Active Member Role Status Dates Mornea Ambrosior , DO Primary Care Provider, Attendi ng Provider Active Team Status: Inactive Member Role Status Dates Morena Bravo , DO Primary Care Provider Active Cristal Bass , DO Emergency Provider Active Team Status: Active Member Role Status Dates Morena Bravo , DO Primary Care Provider Active Salvatoredelfina Rasmussen , DO Emergency Provider Active Amish Mills , DO Admit Provider, Attending Provider Active Team Status: Inactive Member Role Status Dates Morena Bravo , DO Primary Care Provider Active Salvatoredelfina Rasmussen , DO Emergency Provider Active Amish [...] September 10, 2023 End: September 10, 2023 Niravjulia Trujillo , DO Referring Provider Active St [...] 24, 2023 End: September 24, 2023 Nirav P Cassandra , DO Attending Provider Active St art: September 24, 2023 End: September 24, 2023 Team Status: Inactive Member Role Status Dates Morena Bravo DO Primary Care Provider Active Start: September 25, 2023 End: September 25, 2023 Nirav P Cassandra , DO Attending Provider Active St art: [...] Member Role Status Dates Sanya Valadez MD Claim Technician Active Morena Bravo DO Primary Care Provider [...] November 09, 2023 End: November 09, 2023 Nirav P sa , DO Attending Provider Active St art: November 09, 2023 End: November 09, 2023 Team Status: Active Member Role Status Dates Morena Bravo DO Primary Care Provider Active Start: November 10, 2023 Nirav P Samsa , DO Other Provider Active Start: November [...] December 24, 2023 End: December 24, 2023 Team Status: Inactive Member Role Status Dates Morena Bravo DO Primary Care Pro vider, Attending Provider Active Start: January 27, 2024 End: January 27, 2024 Team Status: Active Member Role Status Dates Sanya Valadez MD Claim Technician Active Garry Desir MD Primary Care Provider Active Team Status: Inactive Member Role Status Dates Nirav Trujillo DO Attending Provider Active St art: March 24, 2024 End: March 24, 2024 Garry Desir MD Primary Care Provider Active Start: March 24, 2024 End: March 24, 2024 Goals (unrecognized section and content) Goals may be documented in a n alternate section INFORMATION SOURCE (unrecogn ized section and content) DATE CREATED AUTHOR 03/20/2022 [facility] DATE CREATED AUTHOR AUTHOR'S ORGANIZ ATION 11/17/2023 [facility] FOR RECORDS PERTAINING TO PATIENTS WHO ARE [...] BE BASED ON THE PRIMARY CLINICAL RECORDS. [facility] [employer] provides no warranty or guarantee of the accuracy or completeness of information in this document.
--- NOTE | 2024-06-05 15:55 | CT_ITS ---
The [address] [address] Patient Name: ESTELLE CARSON MRN: [id number] date: 1965 Sex: F Assigned Patient Location: ER Current Patient Location: ER Accession/Order Number: [id number] Exam Date: 06/05/2024 16:26 Report Date: 06/05/2024 18:40 At the request of: CAROLINE FONSECA Procedure: CT head/brain wo con EXAM: CT head/brain wo con HISTORY: Change in mental status. TECHNIQUE: Axial CT scans through the head were obtained without IV contrast administration. Dose reduction techniques were achieved by using: automated exposure control and/or adjustment of mA and /or kV according to patient size and/or the use of an iterative reconstruction technique. COMPARISON: None. FINDINGS: The cerebral hemispheres have normal white and mason matter and corticomedullary differentiation. To the limit of CT, the posterior fossa appears unremarkable. The ventricular system and cortical sulci are normal for the patient's age. No area of abnormal mass-effect or edema or intracranial hemorrhage. The visualized orbits show no abnormal mass. The visualized paranasal sinuses show no air-fluid level. Mastoid air cells are clear. CT/CT head/brain wo con IMPRESSION: No acute intracranial process. Electronically authenticated by: EWELINA MIN Date: 06/05/2024 18:40
--- NOTE | 2024-06-05 15:55 | ECG_ITS ---
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
--- NOTE | 2024-06-05 16:01 | ED.GENADUL1 ---
HPI HPI - General Adult General Chief complaint: Headache Stated complaint: DISTONIA FLARE UP CONFUSINESS Time Seen by Provider: 06/05/24 15:46 Source: patient Mode of arrival: Wheelchair Limitations: no limitations History of Present Illness HPI narrative: Patient is a 58-year-old female was brought in by her daughter for evaluation of increased dystonic reactions. Patient states she has had a long history of this over many years previously seen by neurology and [facility]. Patient states she has had her symptoms managed by her PCP Dr. Desir more recently. She had recent increase in her toprimate to 50mg - 3 times a day, but dystonic reactions still occuring. Daughter states it is mostly strain in her neck and facial muscles sometimes lipsmacking with swelling to her tongue that resolves within 20 to 30 minutes. She is notably on lisinopril but they state the symptoms have been happening for quite some time and do not persist however they are becoming more frequent and the patient appears to have episodes of forgetfulness surrounding the episodes which are of concern. She denies any fall or head injury she denies any fevers or chills. Daughter states she also suffers from chronic back pain and bone spurs. She has had a history of low potassium in the past as well. Patient sitting up at bedside and converses easily defers specific questions and recent history to her daughter at the bedside. Daughter states her balance at home has been pretty good she has not ataxic. Mild Nausea with blood draw attempt. Onset (ago): month(s) Location: Reports face and neck Radiation: Reports non-radiation Severity: moderate Pain Consistency: Reports intermittent Related Data Home Medications ?Medication ?Instructions ?Recorded ?Confirmed aspirin 81 mg tablet,delayed 81 mg PO DAILY 01/11/24 06/05/24 release atorvastatin 10 mg tablet 10 mg PO DAILY 01/11/24 06/05/24 bumetanide 0.5 mg tablet 0.5 mg PO Q12H 01/11/24 06/05/24 fluticasone fur. 200 mcg-umeclid 1 inh inhalation Q24H 01/11/24 01/11/24 62.5 mcg-vilant 25 mcg inhalat.powder (Trelegy Ellipta) gabapentin 300 mg capsule 300 mg PO Q12H 01/11/24 06/05/24 levothyroxine 25 mcg tablet 25 mcg PO DAILY 01/11/24 06/05/24 lisinopril 2.5 mg tablet 2.5 mg PO DAILY 01/11/24 06/05/24 meloxicam 15 mg tablet 15 mg PO DAILY 01/11/24 06/05/24 metformin 1,000 mg tablet 1,000 mg PO BID 01/11/24 06/05/24 omeprazole 20 mg capsule,delayed 20 mg PO DAILY 01/11/24 06/05/24 release potassium chloride 20 mEq 20 meq PO BID 01/11/24 06/05/24 tablet,extended release(part/cryst) (Klor-Con M) topiramate 25 mg tablet 75 mg PO DAILY 01/11/24 06/05/24 semaglutide 1 mg/dose (4 mg/3 mL) 0.5 mg subcut QWEEK 06/05/24 06/05/24 subcutaneous pen injector (Ozempic) Allergies Allergy/AdvReac Type Severity Reaction Status Date / Time No Known Drug Allergies Allergy Verified 01/11/24 20:12 Opioid HPI Opioid Management Most Recent Opioid Data: Last Pain Scale 7 06/05/24 16:55 06/05/24 Last ORT Total Score 16 01/11/24 22:22 01/11/24 Last ORT Risk Category High Risk 01/11/24 22:22 01/11/24 Review of Systems ROS Constitutional Reports: fatigue; Denies: fever or chills Eyes Denies: change in vision or blurry vision Ears, nose, mouth, and throat Denies: throat pain or neck pain Cardiovascular Denies: chest pain or palpitations Respiratory Denies: shortness of breath or cough Gastrointestinal Reports: nausea; Denies: abdominal pain, vomiting or heartburn Genitourinary Denies: painful urination Musculoskeletal Reports: back pain (chronic, baseline. ); Denies: neck pain or extremity pain Integumentary/Breast Denies: rash or itching Neurological Denies: headache Psychiatric Denies: anxiety Endocrine Denies: excessive urination Hematologic/Lymphatic Denies: easy bruising PFSH PFS Medical History (Updated 06/05/24 @ 16:10 by IGNACIA Branch) Morbid obesity ?E66.01 - Morbid (severe) obesity due to excess calories (ICD-10) Cigarette nicotine dependence with nicotine-induced disorder ?F17.219 - Nicotine dependence, cigarettes, with unspecified nicotine-induced disorders (ICD-10) Acute on chronic hypoxic respiratory failure ?J96.21 - Acute and chronic respiratory failure with hypoxia (ICD-10) Acidosis ?E87.20 - Acidosis, unspecified (ICD-10) Severe persistent asthma with acute exacerbation ?J45.51 - Severe persistent asthma with (acute) exacerbation (ICD-10) Acute exacerbation of chronic obstructive pulmonary disease ?J44.1 - Chronic obstructive pulmonary disease with (acute) exacerbation (ICD-10) Asthma with acute exacerbation ?J45.901 - Unspecified asthma with (acute) exacerbation (ICD-10) Diabetes ?E11.9 - Type 2 diabetes mellitus without complications (ICD-10) Arthritis ?M19.90 - Unspecified osteoarthritis, unspecified site (ICD-10) AC (acromioclavicular) joint bone spurs ?M75.80 - Other shoulder lesions, unspecified shoulder (ICD-10) DDD (degenerative disc disease) CHF (congestive heart failure) ?I50.9 - Heart failure, unspecified (ICD-10) Bipolar 1 disorder ?F31.9 - Bipolar disorder, unspecified (ICD-10) Depression ?F32.A - Depression, unspecified (ICD-10) History of posttraumatic stress disorder (PTSD) ?Z86.59 - Personal history of other mental and behavioral disorders (ICD-10) Dystonia ?G24.9 - Dystonia, unspecified (ICD-10) Pneumothorax ?J93.9 - Pneumothorax, unspecified (ICD-10) Social History (Updated 01/11/24 @ 22:31 by Treasure Velez) Smoking status: Current every day smoker Non-prescribed substance use: former substance user Previous occupational history: disabled Highest level of school completed/degree received: 9th grade Are you now , , , , never or living with a partner: In a typical week, how many times do you talk on the telephone with family, friends, or neighbors: 3 or more times per week How often do you get together with friends or relatives: 3 or more times per week How often do you attend roman catholic or confucianism services: never Do you belong to any clubs or organizations such as roman catholic groups unions, fraternal or athletic groups, or school groups: no Total score: 1 Score interpretation: A score of less than or equal to 1 indicates the most socially isolated. Little interest or pleasure in doing things: not at all Feeling down, depressed, or hopeless: not at all Do you think of yourself as: straight/heterosexual Gender Identity: female Exam Narrative Exam Narrative: Vital signs and nurses notes reviewed. The patient is not hypoxic. General: The patient appears well and in no apparent distress. Patient is resting comfortably on cart sitting up right with oxygen. Skin: Warm, dry, no pallor noted. The patient has no evidence of rash, petechiae, or purpura noted. Head: Normocephalic, atraumatic, no temporal arterial tenderness, + Facial muscle spasm bilateral consistent with pt's history of dystonia and base line per daughter at bedside. Neck: Supple, trachea mid-line, no tenderness, no lymphadenopathy. No meningeal signs. No nuchal rigidity. Eye: Pupils are equal, round and reactive to light, EOMI Ears, Nose, Mouth, and Throat: Oral mucosa is moist, TMs are clear bilaterally, no hemotympanum noted. edentulous Cardiovascular: Regular Rate and Rhythm Respiratory: Patient is in no distress, no accessory muscle use, lungs are clear to auscultation, no wheezing, rales or rhonchi Back: non-tender, no CVA tenderness Musculoskeletal: normal ROM, no tenderness, no swelling, normal strength 5/5. Normal pulses to radial 2+ bilaterally and 2+ at DP and PT bilaterally and symmetrically. GI: Normal bowel sounds, no tenderness to palpation, no masses appreciated. No rebound, guarding, or rigidity noted. Neurological: A&O x4, normal equal director of consulting services strength, normal finger to nose, no pronator drift. The patient is not ataxic. The patient has normal speech. The patient has normal coordination. . Normal motor and sensory observed. Psychiatric: Cooperative Constitutional Vital Signs, click to edit/add: Last Vital Signs Pulse 76 06/05/24 18:40 Resp 20 06/05/24 18:40 BP 118/97 H 06/05/24 18:30 Pulse Ox 94 L 06/05/24 18:40 O2 Del Method Room Air 06/05/24 15:31 Course Vital Signs Vital signs: Vital Signs Pulse Rate 92 H 06/05/24 15:31 Respiratory Rate 24 H 06/05/24 15:31 Blood Pressure 142/104 H 06/05/24 15:31 Oxygen Delivery Method Room Air 06/05/24 15:31 Pulse Rate 76 06/05/24 18:40 Respiratory Rate 20 06/05/24 18:40 Blood Pressure 118/97 H 06/05/24 18:30 Pulse Oximetry 94 L 06/05/24 18:40 Oxygen Delivery Method Room Air 06/05/24 15:31 Medical Decision Making MDM Narrative Medical decision making narrative: Patient presents with some generalized fatigue increased dystonic reactions despite increase in medication, reports compliance with her potassium supplementation but has had hypokalemia in the past. Some of her generalized symptoms may be side effect of increased Topiramate. But we will check baseline labs and urinalysis along with CT of the head as patient is alone at times with verbal discussion with daughter at the bedside. I personally spoke with patient's daughter who is at the bedside outside the room she relayed concerns that the patient's symptoms may be related to increased stress she has been feeding with her sister lately as possibly contributing to symptoms. Patient reevaluated at 6:05 PM, resting comfortably reports feeling better, we discussed her laboratory studies and urinalysis we are awaiting her read on her CT head and chest x-ray. No concerns at this time requesting ice water to drink. Discussed patient has a slight pleural effusion on the right, patchy opacity in the right lateral upper lung appears unchanged from previous, she is without cough or congestion I recommend a close follow-up to her family doctor for reevaluation of symptoms patient and family agreeable. The patient is to followup with primary care physician in next 2-3 days or to return to the emergency department should any of the signs or symptoms worsen or new symptoms develop. Patient had questions answered. The patient agrees with the following Diagnosis and Treatment plan and the patient will be discharged home. Lab Data Lab results reviewed: Yes I reviewed the patient's lab results Labs: Lab Results 06/05/24 06/05/24 Range/Units 16:10 16:29 WBC 10.3 (4.0-11.0) 10^3/uL RBC 5.23 (4.20-5.40) 10^6/uL Hgb 13.0 (12.0-16.0) g/dL Hct 42.0 (36.0-48.0) % MCV 80.3 L (81.0-99.0) fL MCH 24.9 L (26.7-34.0) pg MCHC 31.0 (29.9-35.2) g/dL RDW 15.9 H (11.0-15.0) % Plt Count 424 (150-450) 10^3/uL MPV 9.5 (9.5-13.5) fL Neut % (Auto) 69.1 (43.0-75.0) % Lymph % (Auto) 23.8 (20.5-60.0) % [place] % (Auto) 5.1 (1.7-12.0) % Eos % (Auto) 1.4 (0.9-7.0) % Baso % (Auto) 0.4 (0.2-2.0) % Neut # (Auto) 7.1 H (1.4-6.5) 10^3/uL Lymph # (Auto) 2.4 (1.2-3.8) 10^3/uL [place] # (Auto) 0.5 (0.3-0.8) 10^3/uL Eos # (Auto) 0.1 (0.0-0.7) 10^3/uL Baso # (Auto) 0.0 (0.0-0.1) 10^3/uL Abs Immat Gran (auto) 0.02 (0.00-0.03) 10^3/uL Imm/Tot Granulo (auto) 0.2 (0.0-0.5) % Sodium 142 (136-145) mmol/L Potassium 4.6 (3.5-5.1) mmol/L Chloride 103 (98-107) mmol/L Carbon Dioxide 27.7 (21.0-32.0) mmol/L Anion Gap 15.9 BUN 32.0 H (7.0-18.0) mg/dL Creatinine 1.04 H (0.55-1.02) mg/dL Est GFR ( Amer) >60 (>=60 mL/min/1.73m^2) Est GFR (Non-Af Amer) 54 L (>=60 mL/min/1.73m^2) BUN/Creatinine Ratio 30.8 Glucose 107 H (74-106) mg/dL Calcium 10.2 H (8.5-10.1) mg/dL Total Bilirubin 0.2 (0.2-1.0) mg/dL AST 13 L (15-37) U/L ALT 23 (14-59) U/L Alkaline Phosphatase 127 H (46-116) U/L Troponin I High Sens 7.8 (4.0-51.3) pg/mL NT-Pro-B Natriuret Pep 11.0 (<=900.0) pg/mL Total Protein 7.5 (6.4-8.2) g/dL Albumin 3.8 (3.4-5.0) g/dL Globulin 3.7 g/dL Albumin/Globulin Ratio 1.0 TSH & Free T4 Interp 2.566 (0.358-3.740) uIU/mL Urine Color Lt. yellow (YELLOW) Urine Clarity Clear (CLEAR) Urine pH 6.0 (5.0-9.0) Ur Specific [place] 1.020 (1.005-1.025) Urine Protein Negative (NEG/TRACE) mg/dL Urine Glucose (UA) Negative (NEGATIVE) mg/dL Urine Ketones Negative (NEGATIVE) mg/dL Urine Occult Blood Negative (NEGATIVE) Urine Nitrite Negative (NEGATIVE) Urine Bilirubin Negative (NEGATIVE) Urine Urobilinogen 0.2 (0.2-1.0) EU/dL Ur Leukocyte Esterase Negative (NEGATIVE) Imaging Data CT scan - head: Radiologist's impression: ITS Impressions Head CT 06/05/24 15:55 IMPRESSION: No acute intracranial process. Electronically authenticated by: EWELINA MIN Date: 06/05/2024 18:40 Chest X-Ray 06/05/24 16:07 IMPRESSION: Small right pleural effusion with adjacent atelectasis versus small consolidation may be seen. Patchy opacity is again seen in the lateral right upper lung. Electronically authenticated by: BARBIE HUGGINS Date: 06/05/2024 18:53 Chest x-ray: My impression: EXAMINATION: XR chest 1V, , 06/05/2024 1:26 PM PST INDICATION: fatigue. history of dystonia r/o aspiration HISTORY: Ordering Provider Reason for Exam: fatigue. history of dystonia r/o aspiration Technologist Note: Additional: COMPARISON: XR chest 1V Study Date: 01/14/2024 TECHNIQUE: Chest x-ray: One view. FINDINGS: The cardiac silhouette is within normal limits. Small right pleural effusion with adjacent atelectasis versus small consolidation may be seen. Patchy opacity is again seen in the lateral right upper lung. No obvious pneumothorax is seen. IMPRESSION: Small right pleural effusion with adjacent atelectasis versus small consolidation may be seen. Patchy opacity is again seen in the lateral right upper lung Radiologist's impression: ITS Impressions Head CT 06/05/24 15:55 IMPRESSION: No acute intracranial process. Electronically authenticated by: EWELINA MIN Date: 06/05/2024 18:40 Chest X-Ray 06/05/24 16:07 IMPRESSION: Small right pleural effusion with adjacent atelectasis versus small consolidation may be seen. Patchy opacity is again seen in the lateral right upper lung. Electronically authenticated by: BARBIE HUGGINS Date: 06/05/2024 18:53 ECG Data Attestation: I personally reviewed and interpreted this ECG as follows: Interpretation: EKG interpretation: Emergency Department physician interpretation, normal sinus rhythm 71, low voltage, no ST segment elevation, normal axis. Discharge Plan Discharge Chief Complaint: Headache Clinical Impression: Dystonia, Fatigue Patient Disposition: Home, Self-Care Time of Disposition Decision: 18:58 Condition: Good Prescriptions / Home Meds: No Action Ozempic 1 mg/dose (4 mg/3 mL) pen injector 0.5 mg subcut QWEEK gabapentin 300 mg capsule 300 mg PO Q12H metformin 1,000 mg tablet 1,000 mg PO BID levothyroxine 25 mcg tablet 25 mcg PO DAILY lisinopril 2.5 mg tablet 2.5 mg PO DAILY meloxicam 15 mg tablet 15 mg PO DAILY omeprazole 20 mg capsule,delayed release(DR/EC) 20 mg PO DAILY potassium chloride [Klor-Con M20] 20 mEq tablet,ER particles/crystals 20 meq PO BID topiramate 25 mg tablet 75 mg PO DAILY Trelegy Ellipta 200-62.5-25 mcg blister with device 1 inh INHALATION Q24H bumetanide 0.5 mg tablet 0.5 mg PO Q12H atorvastatin 10 mg tablet 10 mg PO DAILY aspirin 81 mg tablet,delayed release (DR/EC) 81 mg PO DAILY Print Language: [place]se Instructions: Fatigue (ED) Additional Instructions: Recommend deep breaths 10 times every 1-2 hours recheck right lower lobe pleural effusion with PCP, ER if symptoms worsen or new symptoms develop Referrals: Garry Desir MD [Primary Care Provider] - As soon as possible
--- NOTE | 2024-06-05 16:07 | XR_ITS ---
The [address] [address] Patient Name: ESTELLE CARSON MRN: [id number] date: 1965 Sex: F Assigned Patient Location: ER Current Patient Location: ER Accession/Order Number: [id number] Exam Date: 06/05/2024 16:26 Report Date: 06/05/2024 18:53 At the request of: CAROLINE FONSECA Procedure: XR chest 1V EXAMINATION: XR chest 1V, , 06/05/2024 1:26 PM PST INDICATION: fatigue. history of dystonia r/o aspiration HISTORY: Ordering Provider Reason for Exam: fatigue. history of dystonia r/o aspiration Technologist Note: Additional: COMPARISON: XR chest 1V Study Date: 01/14/2024 TECHNIQUE: Chest x-ray: One view. FINDINGS: The cardiac silhouette is within normal limits. Small right pleural effusion with adjacent atelectasis versus small consolidation may be seen. Patchy opacity is again seen in the lateral right upper lung. No obvious pneumothorax is seen. XR/XR chest 1V IMPRESSION: Small right pleural effusion with adjacent atelectasis versus small consolidation may be seen. Patchy opacity is again seen in the lateral right upper lung. Electronically authenticated by: BARBIE HUGGINS Date: 06/05/2024 18:53
[2024-06-05] MEDS: ONDANSETRON PF 4 MG/2 ML VIAL IV (16:16)
[2024-06-05] MEDS: DIPHENHYDRAMINE HCL 50 MG/ML VIAL 25 MG IV (16:16)
[2024-06-05 16:17] LABS: Basophils Percent Auto 0.4 % (0.2-2.0); Eosinophils Absolute Auto 0.1 10^3/uL (0.0-0.7); Eosinophils Percent Auto 1.4 % (0.9-7.0); Immature Granulocytes Abs Auto 0.02 10^3/uL (0.00-0.03); Immature Granulocytes Pct Auto 0.2 % (0.0-0.5); Lymphocytes Absolute Auto 2.4 10^3/uL (1.2-3.8); Lymphocytes Percent Auto 23.8 % (20.5-60.0); Mean Corpuscular Hemoglobin 24.9 pg (26.7-34.0); Mean Corpuscular Volume 80.3 fL (81.0-99.0); Mean Platelet Volume 9.5 fL (9.5-13.5); Monocytes Absolute Auto 0.5 10^3/uL (0.3-0.8); Monocytes Percent Auto 5.1 % (1.7-12.0); Neutrophils Absolute Auto 7.1 10^3/uL (1.4-6.5); Neutrophils Percent Auto 69.1 % (43.0-75.0); Platelet Count 424 10^3/uL (150-450); Red Blood Count 5.23 10^6/uL (4.20-5.40); Red Cell Distribution Width 15.9 % (11.0-15.0); White Blood Count 10.3 10^3/uL (4.0-11.0)
[2024-06-05 16:36] LABS: Bilirubin Urine NEGATIVE (NEGATIVE); Blood Urine NEGATIVE (NEGATIVE); Clarity Urine CLEAR (CLEAR); Color Urine LT. YELLOW (YELLOW); Glucose Urine UA NEGATIVE (NEGATIVE); Ketones Urine NEGATIVE (NEGATIVE); Leukocyte Esterase Urine NEGATIVE (NEGATIVE); Nitrite Urine NEGATIVE (NEGATIVE); Protein Urine NEGATIVE (NEG/TRACE); Urine Microscopic Indicated NO; Urobilinogen Urine 0.2 EU/dL (0.2-1.0)
[2024-06-05 16:40] LABS: Alanine Aminotransferase 23 U/L (14-59); Albumin Level 3.8 g/dL (3.4-5.0); Alkaline Phosphatase 127 U/L (46-116); Anion Gap 15.9; Aspartate Amino Transferase 13 U/L (15-37); BUN Creatinine Ratio 30.8; Bilirubin Total 0.2 mg/dL (0.2-1.0); Calcium 10.2 mg/dL (8.5-10.1); Carbon Dioxide 27.7 mmol/L (21.0-32.0); Chloride 103 mmol/L (98-107); Estimated GFR (African America >60 (>=60 mL/min/1.73m^2); Estimated GFR (Non-African Ame 54 (>=60 mL/min/1.73m^2); Globulin 3.7 g/dL; Glucose 107 mg/dL (74-106); Potassium 4.6 mmol/L (3.5-5.1); Sodium 142 mmol/L (136-145); Total Protein 7.5 g/dL (6.4-8.2)
[2024-06-05 16:41] LABS: TSH W/ REFLEX FT4 2.566 uIU/mL (0.358-3.740); Troponin I High Sensitivity 7.8 pg/mL (4.0-51.3)
--- NOTE | 2024-06-05 19:16 | PC.NURSE ---
i gave this patient verbal and paper discharge orders, and she voices yes to understanding these. at time of discharge this patient voices no concerns and shows no signs of distress
== END 2024-06-05 19:18 | disposition home or self-care (01) ==
PROVIDERS: Personal Emergency Response Attendant; Emergency Provider Emergency Medicine; PCP Family Medicine
DX: G24.9 Dystonia, unspecified (principal); R53.83 Other fatigue; Z79.899 Other long term (current) drug therapy; F17.200 Nicotine dependence, unspecified, uncomplicated; E66.01 Morbid (severe) obesity due to excess calories; Z68.42 Body mass index [BMI] 45.0-49.9, adult; I50.9 Heart failure, unspecified
CPT/HCPCS: 36415; 70450; 71045; 80053; 81003; 83880; 84443; 84484; 85025; 93005; 96374; 96375; 99285; J1200; J2405

== ENCOUNTER 2024-06-30 11:15 | Emergency (ER) | payer MEDICARE, SELFPAY ==
[2024-06-30 11:21] VITALS: PULSE 84; TEMP 36.9; O2SAT 98; BMI 43.9
[2024-06-30 11:27] VITALS: BP 146/84
[2024-06-30 11:29] VITALS: O2SAT 98
--- NOTE | 2024-06-30 11:29 | PC.NURSE ---
Patient uses home oxygen at 2-3 LPM/NC.
[2024-06-30] MEDS: METHYLPREDNISOLONE SOD SUCC PF 125 MG/2 ML VIAL IVP (11:46)
[2024-06-30] MEDS: IPRATROPIUM/ALBUTEROL SULFATE 3 ML AMPUL.NEB IH (11:50)
--- NOTE | 2024-06-30 11:52 | ED.URI1 ---
HPI - URI/Sore Throat General Chief Complaint: Upper Respiratory Infection Stated Complaint: SOB Time Seen by Provider: 06/30/24 11:26 Source: patient History of Present Illness HPI Narrative: 58 years old female with history of COPD oxygen dependent on 2 L nasal cannula. Is coming to the ER with 3 days history of cough associated with shortness of breath at rest. The patient still using her 2 L nasal cannula , the patient have runny nose body ache in addition to a cough and congestion with difficulty breathing Increase in the phlegm production Related Data Home Medications ?Medication ?Instructions ?Recorded ?Confirmed aspirin 81 mg tablet,delayed 81 mg PO DAILY 01/11/24 06/05/24 release atorvastatin 10 mg tablet 10 mg PO DAILY 01/11/24 06/05/24 bumetanide 0.5 mg tablet 0.5 mg PO Q12H 01/11/24 06/05/24 fluticasone fur. 200 mcg-umeclid 1 inh inhalation Q24H 01/11/24 01/11/24 62.5 mcg-vilant 25 mcg inhalat.powder (Trelegy Ellipta) gabapentin 300 mg capsule 300 mg PO Q12H 01/11/24 06/05/24 levothyroxine 25 mcg tablet 25 mcg PO DAILY 01/11/24 06/05/24 lisinopril 2.5 mg tablet 2.5 mg PO DAILY 01/11/24 06/05/24 meloxicam 15 mg tablet 15 mg PO DAILY 01/11/24 06/05/24 metformin 1,000 mg tablet 1,000 mg PO BID 01/11/24 06/05/24 omeprazole 20 mg capsule,delayed 20 mg PO DAILY 01/11/24 06/05/24 release potassium chloride 20 mEq 20 meq PO BID 01/11/24 06/05/24 tablet,extended release(part/cryst) (Klor-Con M) topiramate 25 mg tablet 75 mg PO DAILY 01/11/24 06/05/24 semaglutide 1 mg/dose (4 mg/3 mL) 0.5 mg subcut QWEEK 06/05/24 06/05/24 subcutaneous pen injector (Ozempic) Previous Rx's ?Medication ?Instructions ?Recorded azithromycin 250 mg tablet See Rx Instructions PO .COMPLEX #6 06/30/24 (Zithromax Z-Dontrell) tabs oseltamivir 75 mg capsule (Tamiflu) 75 mg PO BID 5 days #10 caps 06/30/24 prednisone 50 mg tablet 50 mg PO DAILY 5 days #5 tabs 06/30/24 Allergies Allergy/AdvReac Type Severity Reaction Status Date / Time No Known Drug Allergies Allergy Verified 06/30/24 11:20 Review of Systems ROS Status of ROS 10 or more systems reviewed and unremarkable except as noted in history and below [facility] Medical History (Updated 06/30/24 @ 12:50 by Josefina Obregon MD) Morbid obesity ?E66.01 - Morbid (severe) obesity due to excess calories (ICD-10) Cigarette nicotine dependence with nicotine-induced disorder ?F17.219 - Nicotine dependence, cigarettes, with unspecified nicotine-induced disorders (ICD-10) Acute on chronic hypoxic respiratory failure ?J96.21 - Acute and chronic respiratory failure with hypoxia (ICD-10) Acidosis ?E87.20 - Acidosis, unspecified (ICD-10) Severe persistent asthma with acute exacerbation ?J45.51 - Severe persistent asthma with (acute) exacerbation (ICD-10) Acute exacerbation of chronic obstructive pulmonary disease ?J44.1 - Chronic obstructive pulmonary disease with (acute) exacerbation (ICD-10) Asthma with acute exacerbation ?J45.901 - Unspecified asthma with (acute) exacerbation (ICD-10) Diabetes ?E11.9 - Type 2 diabetes mellitus without complications (ICD-10) Arthritis ?M19.90 - Unspecified osteoarthritis, unspecified site (ICD-10) AC (acromioclavicular) joint bone spurs ?M75.80 - Other shoulder lesions, unspecified shoulder (ICD-10) DDD (degenerative disc disease) CHF (congestive heart failure) ?I50.9 - Heart failure, unspecified (ICD-10) Bipolar 1 disorder ?F31.9 - Bipolar disorder, unspecified (ICD-10) Depression ?F32.A - Depression, unspecified (ICD-10) History of posttraumatic stress disorder (PTSD) ?Z86.59 - Personal history of other mental and behavioral disorders (ICD-10) Dystonia ?G24.9 - Dystonia, unspecified (ICD-10) Pneumothorax ?J93.9 - Pneumothorax, unspecified (ICD-10) Social History (Updated 01/11/24 @ 22:31 by Treasure Velez) Smoking status: Current every day smoker Non-prescribed substance use: former substance user Previous occupational history: disabled Highest level of school completed/degree received: 9th grade Are you now , , , , never or living with a partner: In a typical week, how many times do you talk on the telephone with family, friends, or neighbors: 3 or more times per week How often do you get together with friends or relatives: 3 or more times per week How often do you attend adventist or baptism services: never Do you belong to any clubs or organizations such as adventist groups unions, [employer] or athletic groups, or school groups: no Total score: 1 Score interpretation: A score of less than or equal to 1 indicates the most socially isolated. Little interest or pleasure in doing things: not at all Feeling down, depressed, or hopeless: not at all Do you think of yourself as: straight/heterosexual Gender Identity: female Exam Narrative Exam Narrative: Nurses notes and vital signs reviewed and patient is not hypoxic. General: Well-appearing and in no apparent distress. Skin: Warm, dry, no pallor noted. No rash. Head: Normocephalic, atraumatic. Neck: Supple, non-tender. Eye: Pupils are equal, round and EOMI. No scleral icterus. Ears, Nose, congested nasal mucosa bilaterally: Respiratory: Restricted airway bilaterally with distant breathing sounds and expiratory wheezes Back: No midline thoracic or lumbar vertebral tenderness. No CVA tenderness Musculoskeletal: normal ROM, no calf or popliteal tenderness, no lower extremity edema/swelling GI: Abdomen is soft, non-distended. Normal bowel sounds. No masses appreciated. No tenderness to palpation. No rebound, guarding, or rigidity noted. Constitutional Vital Signs, click to edit/add: Last Vital Signs Temp 98.5 F 06/30/24 11:21 Pulse 84 06/30/24 11:21 Resp 22 H 06/30/24 11:21 BP 146/84 H 06/30/24 11:27 Pulse Ox 98 06/30/24 11:29 O2 Del Method Nasal Cannula 06/30/24 11:29 O2 Flow Rate 2 06/30/24 11:29 Course Vital Signs Vital signs: Vital Signs Temperature 98.5 F 06/30/24 11:21 Pulse Rate 84 06/30/24 11:21 Respiratory Rate 22 H 06/30/24 11:21 Pulse Oximetry 98 06/30/24 11:21 Oxygen Delivery Method Nasal Cannula 06/30/24 11:21 Oxygen Delivery Flow Rate 2 06/30/24 11:21 Temperature 98.5 F 06/30/24 11:21 Pulse Rate 84 06/30/24 11:21 Respiratory Rate 22 H 06/30/24 11:21 Blood Pressure 146/84 H 06/30/24 11:27 Pulse Oximetry 98 06/30/24 11:29 Oxygen Delivery Method Nasal Cannula 06/30/24 11:29 Oxygen Delivery Flow Rate 2 06/30/24 11:29 MDM - URI/Sore Throat MDM Narrative Medical decision making narrative: Patient EKG showing sinus rhythm with a heart rate of [address] elevation or depression The patient was saturating 93% on her nasal cannula oxygen of 2 L but she would drop to 87% when she is coughing Chest x-ray showed no significant acute changes although there was a possible scarring The patient also had a CBC and chemistry showing no acute pathology and her flu test is positive for influenza A Patient was started on Tamiflu as she is starting her symptoms within the last 72 hours she also was started on prednisone and provided with a Z-Dontrell The patient was offered to be admitted as observation due to her symptoms but she mentioned that she will try the prednisone at home in case she did not get any better she will come back Patient have a nebulizer treatment and should be using the nebulizer treatment every 6 hours The patient is to follow up with primary care physician in next 2-3 days or to return to the emergency department should any of the signs or symptoms worsen or new symptoms develop. The patient agrees with the following Diagnosis and Treatment plan and the patient will be discharged home. Lab Data Labs: Lab Results 06/30/24 06/30/24 Range/Units 11:25 11:43 WBC 6.1 (4.0-11.0) 10^3/uL RBC 4.86 (4.20-5.40) 10^6/uL Hgb 12.1 (12.0-16.0) g/dL Hct 39.4 (36.0-48.0) % MCV 81.1 (81.0-99.0) fL MCH 24.9 L (26.7-34.0) pg MCHC 30.7 (29.9-35.2) g/dL RDW 15.7 H (11.0-15.0) % Plt Count 292 (150-450) 10^3/uL MPV 10.5 (9.5-13.5) fL Neut % (Auto) 69.3 (43.0-75.0) % Lymph % (Auto) 18.7 L (20.5-60.0) % [place] % (Auto) 10.4 (1.7-12.0) % Eos % (Auto) 0.7 L (0.9-7.0) % Baso % (Auto) 0.7 (0.2-2.0) % Neut # (Auto) 4.2 (1.4-6.5) 10^3/uL Lymph # (Auto) 1.1 L (1.2-3.8) 10^3/uL [place] # (Auto) 0.6 (0.3-0.8) 10^3/uL Eos # (Auto) 0.0 (0.0-0.7) 10^3/uL Baso # (Auto) 0.0 (0.0-0.1) 10^3/uL Abs Immat Gran (auto) 0.01 (0.00-0.03) 10^3/uL Imm/Tot Granulo (auto) 0.2 (0.0-0.5) % Sodium 138 (136-145) mmol/L Potassium 4.7 (3.5-5.1) mmol/L Chloride 101 (98-107) mmol/L Carbon Dioxide 26.0 (21.0-32.0) mmol/L Anion Gap 15.7 BUN 31.0 H (7.0-18.0) mg/dL Creatinine 1.00 (0.55-1.02) mg/dL Est GFR ( Amer) >60 (>=60 mL/min/1.73m^2) Est GFR (Non-Af Amer) 57 L (>=60 mL/min/1.73m^2) BUN/Creatinine Ratio 31.0 Glucose 97 (74-106) mg/dL Calcium 9.6 (8.5-10.1) mg/dL Total Bilirubin 0.2 (0.2-1.0) mg/dL AST 23 (15-37) U/L ALT 32 (14-59) U/L Alkaline Phosphatase 111 (46-116) U/L Total Protein 7.1 (6.4-8.2) g/dL Albumin 3.4 (3.4-5.0) g/dL Globulin 3.7 g/dL Albumin/Globulin Ratio 0.9 Influenza Type A Ag Positive A Influenza Type B Ag Negative SARS-CoV-2 Ag (CV2AG) Negative (NEGATIVE) Discharge Plan Discharge Chief Complaint: Upper Respiratory Infection Clinical Impression: Flu, Asthma exacerbation in COPD Patient Disposition: Home, Self-Care Time of Disposition Decision: 12:50 Condition: Good Prescriptions / Home Meds: New prednisone 50 mg tablet 50 mg PO DAILY 5 Days Qty: 5 0RF azithromycin [Zithromax Z-Dontrell] 250 mg tablet See Rx Instructions .ROUTE .COMPLEX Qty: 6 0RF Rx Instructions: For 250 mg dose pack: take 500 mg today (day 1), then 250 mg for 4 days (days 2-5) oseltamivir [Tamiflu] 75 mg capsule 75 mg PO BID 5 Days Qty: 10 0RF No Action Ozempic 1 mg/dose (4 mg/3 mL) pen injector 0.5 mg subcut QWEEK gabapentin 300 mg capsule 300 mg PO Q12H metformin 1,000 mg tablet 1,000 mg PO BID levothyroxine 25 mcg tablet 25 mcg PO DAILY lisinopril 2.5 mg tablet 2.5 mg PO DAILY meloxicam 15 mg tablet 15 mg PO DAILY omeprazole 20 mg capsule,delayed release(DR/EC) 20 mg PO DAILY potassium chloride [Klor-Con M20] 20 mEq tablet,ER particles/crystals 20 meq PO BID topiramate 25 mg tablet 75 mg PO DAILY Trelegy Ellipta 200-62.5-25 mcg blister with device 1 inh INHALATION Q24H bumetanide 0.5 mg tablet 0.5 mg PO Q12H atorvastatin 10 mg tablet 10 mg PO DAILY aspirin 81 mg tablet,delayed release (DR/EC) 81 mg PO DAILY Print Language: Vietnamese Instructions: Influenza (DC), COPD (Chronic Obstructive Pulmonary Disease) (DC) Referrals: Garry Desir MD [Primary Care Provider] - 1 week
--- NOTE | 2024-06-30 11:57 | PC.NURSE ---
Pulse ox. drops to 87% with oxygen on at 2 LPM/NC with cough. Oxygen level immediately increases to 96 % after cough.
[2024-06-30 12:02] LABS: Basophils Percent Auto 0.7 % (0.2-2.0); Eosinophils Percent Auto 0.7 % (0.9-7.0); Hematocrit 39.4 % (36.0-48.0); Hemoglobin 12.1 g/dL (12.0-16.0); Immature Granulocytes Abs Auto 0.01 10^3/uL (0.00-0.03); Immature Granulocytes Pct Auto 0.2 % (0.0-0.5); Lymphocytes Absolute Auto 1.1 10^3/uL (1.2-3.8); Lymphocytes Percent Auto 18.7 % (20.5-60.0); Mean Corpuscular HGB Conc 30.7 g/dL (29.9-35.2); Mean Corpuscular Hemoglobin 24.9 pg (26.7-34.0); Mean Corpuscular Volume 81.1 fL (81.0-99.0); Mean Platelet Volume 10.5 fL (9.5-13.5); Monocytes Absolute Auto 0.6 10^3/uL (0.3-0.8); Monocytes Percent Auto 10.4 % (1.7-12.0); Neutrophils Absolute Auto 4.2 10^3/uL (1.4-6.5); Neutrophils Percent Auto 69.3 % (43.0-75.0); Platelet Count 292 10^3/uL (150-450); Red Blood Count 4.86 10^6/uL (4.20-5.40); Red Cell Distribution Width 15.7 % (11.0-15.0); White Blood Count 6.1 10^3/uL (4.0-11.0)
[2024-06-30 12:10] LABS: Alanine Aminotransferase 32 U/L (14-59); Albumin Globulin Ratio 0.9; Albumin Level 3.4 g/dL (3.4-5.0); Alkaline Phosphatase 111 U/L (46-116); Anion Gap 15.7; Aspartate Amino Transferase 23 U/L (15-37); Bilirubin Total 0.2 mg/dL (0.2-1.0); Calcium 9.6 mg/dL (8.5-10.1); Chloride 101 mmol/L (98-107); Estimated GFR (African America >60 (>=60 mL/min/1.73m^2); Estimated GFR (Non-African Ame 57 (>=60 mL/min/1.73m^2); Globulin 3.7 g/dL; Glucose 97 mg/dL (74-106); Potassium 4.7 mmol/L (3.5-5.1); Sodium 138 mmol/L (136-145); Total Protein 7.1 g/dL (6.4-8.2)
[2024-06-30 12:16] LABS: Influenza Virus A Antigen Positive; Influenza Virus B Antigen Negative; Internal Control Within Normal Limits
[2024-06-30 12:17] LABS: Internal Control Within Normal Limits; SARS-CoV-2 Ag NEGATIVE (NEGATIVE)
--- NOTE | 2024-06-30 19:20 | ECG_ITS ---
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
== END 2024-06-30 13:08 | disposition home or self-care (01) ==
PROVIDERS: Emergency Provider Emergency Medicine; PCP Family Medicine
DX: J10.1 Influenza due to other identified influenza virus with other respiratory manifestations (principal); R06.02 Shortness of breath; Z99.81 Dependence on supplemental oxygen; J44.9 Chronic obstructive pulmonary disease, unspecified; F17.200 Nicotine dependence, unspecified, uncomplicated; J45.901 Unspecified asthma with (acute) exacerbation
CPT/HCPCS: 36415; 71045; 80053; 85025; 87804; 87811; 93005; 94640; 96374; 99284; J2919

== ENCOUNTER 2024-08-15 07:01 | Outpatient (OUT) | payer MEDICARE, SELFPAY ==
--- OUTSIDE RECORDS SUMMARY | 2024-08-15 07:07 | XMS_ITS | CCD ---
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 Name Role Phone Morena Bravo Unavailable Vipul Jimenez Unavailable Radha aMrkham Unavailable Morena Bravo Unavailable DO Morena Bravo Primary Care Provider [phone] DO Morena Bravo Attending Provider Jaquelin Ac Unavailable Clara Adams Unavailable DO Cristal Bass Emergency Provider [phone] DO Morena Bravo Primary Care Provider [phone] DO Morena Bravo Attending Provider DO Salvatore Rasmussen Emergency Provider [phone] DO [place]ish [place] Admit Provider DO [place] Attending Provider MATTHEW, DR SCHMITT Primary Care Unavailable PAY, [...] DO Shelly Morena E Primary Care Provider [phone] DO Cristal Bass Emergency Provider Schwerer, DO Morena E Attending Provider DO Salvatore Rasmussen Emergency Provider DO [place] Admit Provider [phone] DO [place] Attending Provider MD Jaquelin Ac Attending Provider [phone] Schwerer, DO Morena E Primary Care Provider [phone] Schwerer, DO Morena E Referring Provider Self, Referral Attending Provider Unavailable Schwerer, DO Morena E Primary Care Provider [phone] Schwerer, DO Morena E Attending Provider JeffMayo Unavailable Schwerer, DO Morena E Primary Care Provider [phone] Schwerer, DO Morena E Attending Provider DO Cassandra Nirav P Attending Provider [phone] MD Sanya Valadez Attending Provider MD Maday Jarvis Referring Provider Sanya Valadez Admitting Unavai [...] Attending DO Morena Donaldson Primary Care Provider [phone] DO Nirav Trujillo Attending Provider MD Sanya Valadez Attending Provider DO Morena Bravo Primary Care Provider [phone] MD Sanya Valadez Attending Provider DO Nirav Trujillo Attending Provider DO Morena Bravo Attending Provider Morena Bravo DO Primary Care Provider [phone] Morena Bravo DO Attending Provider Allergies Allergy Classification Reported Allergen(s) Allergy Type Date of Onset Reaction(s) Facility (20 sources) Codeine Drug Allergy dizziness/nause a S-cubism Other (1 source) Codeine Drug Allergy [address] [place] [address] Repository Medications Current Medications Medication Drug Class(es) [...] aspirin 81 mg delayed release oral tablet (17 sources) Platelet Aggregation Inhibitor, Nonsteroidal Anti-inflammatory Drug [...] bleed Cpap (Continuous Positive rway Pressure) unit (3 sources) Start: 06-27-2024 Cpap (Continuo us Positive Airway Pressure) unit Active 0 .Route June 27, 2024 10:50am [facility] 2 liters oxygen bleed not using it Start: 08-27-2023 End: 06-27-2024 Cpap (Continuous Positive rway Pressure) unit Discontinued 0 .Route August 26, 2023 11:00pm June 27, 2024 10:50am [facility] 2 liters oxygen bleed Start: 08-27-2023 Cpap (Continuo us Positive Airway Pressure) unit Active 0 .Route August 26, 2023 11:00pm [facility] 2 liters oxygen bleed DULoxetine 30 mg delayed release oral capsule (1 source) Serotonin and Norepinephrine Reuptake Inhibitor Start: 06-27-2024 take 1 capsule by mouth once daily Duloxetine 30 mg capsule,delayed release(DR/EC) Active 30 MG PO Daily June 27, 2024 12:00am 2 ml dupilumab 150 mg/ml auto-injector (1 source) Interleukin-4 Receptor alpha Antagonist Start: 06-27-2024 inject 300 mg by subcutaneous injection every other week Dupilumab (Dupixent Pen) 300 mg/2 mL pen injector Active 300 MG SUBCUT EVERY 2 WEEKS 08 31June 27, 2024 12:00am Autopen every 2 weeks DX [facility] via mail thru [facility] Fluticasone-Ume clidin-Vilanter (20 sources) Start: 10-28-2023 Fluticasone-Umeclid in-Vilanter (Trelegy Ellipta) 200-62.5-25 mcg blister with device Active 1 INH INHALATION every day at noon October 27, 2023 11:00pm Rinse after use. Dispense 3 inhalers Start: 10-28-2023 Fluticasone-Um eclidin-Vilanter (Trelegy Ellipta) 200-62.5-25 mcg blister with device Active 1 INH INHALATION every day at noon October 28, 2023 12:00am Rinse after use. Dispense 3 inhalers Start: 08-27-2023 End: 10-28-2023 Ncwcllukzeo-Iypqkbcgr-Ikzhmp er (Trelegy Ellipta) 200-62.5-25 mcg blister with device Discontinued 1 INH INHALATION Daily 180 90 August 26, 2023 11:00pm October 28, 2023 7:21am Rinse after use. Dispense 3 inhalers Start: 08-27-2023 End: 10-28-2023 Wqisureedbi-Mujwelvsr-Mxzwyj er (Trelegy Ellipta) 200-62.5-25 mcg blister with [...] 2019 12:00am gabapentin 300 mg oral capsule (2 sources) Anti-epileptic Agent Start: 03-24-2024 take 1 capsule by mouth once daily Gabapentin 300 mg capsule Active 300 MG PO Daily March 24, 2024 12:00am ibuprofen 600 mg oral tablet (20 sources) Nonsteroidal Anti-inflammatory Drug Start: 06-19-2023 take 1 tablet by mouth three times daily at mealtime as needed Ibuprofen 600 mg tablet Active 0 .ROUTE .COMPLEX 90 June 19, 2023 9:25am TAKE 1 TABLET BY MOUTH THREE TIMES A DAY WITH FOOD OR MILK NEEDED Start: 06-19-2023 take 1 tablet by rico th three times daily at mealtime as needed Ibuprofen Active 0 .ROUTE .COMPLEX 90 June 19, 2023 10:25am TAKE 1 TABLET [...] sources) Anticholinergic Start: 08-20-2023 End: 10-22-2023 Ipratropium [place] 0.02 % solution Active 0.5 MG INHALATION Every 8 hours as needed for shortness of breath or wheezing October 22, 2023 11:54am Free[employer]: INHALE CONTENTS OF 1 VIAL PER NEBULIZER EVERY 8 HOURS FOR 30 DAYS*J44.1*; Note: Source Status: Not-TakingundefinedPRN; Refills: 2; Qty: 250 Milliliter; Provider: Shelly Berg ( ) Start: 08-20-2023 End: 10-22-2023 Ipratropium [place] Active 0 .5 MG INHALATION Every 8 hours October 22, 2023 12:54pm Free[employer]: INHALE CONTENTS OF 1 VIAL PER NEBULIZER EVERY 8 HOURS FOR 30 DAYS*J44.1*; Note: Source Status: Not-Taking\PRN; Refills: 2; Qty: 250 Milliliter; Provider: Shelly Berg ( ) Start: 02-24-2022 take 2.5 mL by inhal ation every eight hours Ipratropium [place] 0.02 % 2.5 mL Inhalation every 8 hrs for 30 day(s) with albuterol neb Feb, Active Start: 06-28-2018 End: 09-27-2020 take 0.5 mg by inhalation four times daily as needed for wheezing Ipratropium [place] 0.02 % Solution Discontinued 0.5 MG INHALATION Four times daily - Respiratory as needed for shortness of breath or wheezing 0 March 16, 2019 2:22pm September 27, 2020 8:23am Start: 06-28-2018 End: 09-27-2020 take 0.5 mg by inhalation four times daily Ipratropium [place] Discontinued 0.5 MG INHALATION Four times daily [...] mg Tablet Discontinued 750 MG PO Q24H 2 March 19, 2018 12:00am April 14, 2018 4:13pm lisinopril 2.5 mg oral tablet (20 sources) Angiotensin Converting Enzyme Inhibitor Start: 12-03-2023 take 1 tablet by mouth once daily Lisinopril 2.5 mg tablet Active 0 .ROUTE .COMPLEX 90 December 03, 2023 12:53pm TAKE 1 TABLET BY MOUTH EVERY DAY Start: 10-26-2020 End: 12-03-2023 take 1 tablet by mouth once daily Lisinopril 2.5 mg tablet Discontinued 2.5 MG PO Daily December 30, 2020 11:00pm July 17, 2023 6:54am meloxicam 15 mg oral tablet (2 sources) Nonsteroidal Anti-inflammatory Drug Start: 03-24-2024 take 1 [...] succinate 25 mg extended release oral tablet (17 sources) beta-Adrenergic Jacinda Start: 10-22-2023 End: 10-28-2023 take 1 tablet by mouth once daily in the morning Metoprolol Succinate 25 mg tablet extended release 24 hr Active 25 MG PO Every morning October 27, 2023 11:00pm Oxygen (14 sources) Start: 08-27-2023 Oxygen Active 0 .Route August 27, 2023 12:00am 2 liters continuous [facility] Start: 08-27-2023 Oxygen Active 0 .ROUTE August 27, 2023 12:00am 2 liters continuous [facility] Oxygen unit (2 sources) Start: 08-27-2023 Oxygen unit Ac tive 0 .Route August 26, 2023 11:00pm 2 liters continuous [facility] ozempic (0.25 or 0.5 mg/dose) 2 mg/3ml [...] days Start: 02-24-2022 take 2 tablets by [facility] every twenty-four hours predniSONE 20 MG 2 tablets Orally Once a day for 5 days Feb, Active Start: 02-07-2022 take 1 tablet by [facility] every twenty-four hours predniSONE 10 MG 1 [...] milk Start: 11-22-2021 take 2 tablets by [facility] every twenty-four hours predniSONE 20 MG 2 [...] May, 2022 Active Semaglutide (20 sources) Start: 05-30-2024 inject 0.5 mg by subcutaneous injection every week Semaglutide (Ozempic) 0.25 mg or 0.5 mg (2 mg/3 mL) pen injector Active 0 .ROUTE .COMPLEX 3 May 30, 2024 8:52am INJECT 0.5MG VIA SUBCUTANEOUS ROUTE ONCE WEEKLY 28 Start: 11-10-2023 End: 05-30-2024 inject 0.5 mg by subcutaneous injection every week Semaglutide (Ozempic) 0.25 mg or 0.5 mg (2 mg/3 mL) pen injector Discontinued 0 .ROUTE .COMPLEX November 10, 2023 6:55am May 30, 2024 8:52am INJECT 0.5MG VIA SUBCUTANEOUS ROUTE ONCE WEEKLY 28 Start: 11-10-2023 inject 0.5 mg by sub cutaneous injection every week Semaglutide (Ozempic) 0.25 mg or 0.5 mg (2 mg/3 mL) pen injector Active 0 .ROUTE .COMPLEX November 10, 2023 6:55am INJECT 0.5MG VIA SUBCUTANEOUS ROUTE ONCE WEEKLY 28 Start: 11-10-2023 inject 0.5 mg by sub cutaneous injection every week Semaglutide (Ozempic) 0.25 mg or 0.5 mg (2 mg/3 mL) pen injector Active 0 .ROUTE .COMPLEX November 10, 2023 7:55am INJECT 0.5MG VIA [...] Milliliter; Provider: Shelly Berg ( ) topiramate 50 mg oral tablet (20 sources) Start: 06-27-2024 take 3 tablets by mouth once daily Topiramate 50 mg tablet Active 150 MG PO Daily June 27, 2024 12:00am Start: 03-24-2024 End: 06-27-2024 take 1 tablet by mouth once Topiramate 100 mg tablet Discontinued 100 MG PO Once March 24, 2024 12:00am June 27, 2024 10:43am Start: 05-17-2020 End: 06-27-2024 take 1 tablet by mouth once daily in the morning Topiramate 25 mg tablet Discontinued 25 MG PO Every morning May 17, 2020 12:00am June 27, 2024 10:43am Trelegy Ellipta 100-62.5-25 MCG/INH (5 sources) Start: [...] Albuterol Sulfate 90 mcg/actuation Hfa Aerosol Inhaler (2 sources) Start: 06-27-2018 End: 03-16-2019 take 1 puff(s) [...] tablet Discontinued 1 MG PO Twice daily 60 June 03, 2018 12:00am June 26, 2018 [...] capsule Discontinued 500 MG PO Q12H 14 7 April 14, 2018 12:00am April 20, 2018 12:00am April 21, 2018 12:02am Start: 10-26-2017 End: 12-21-2017 take 2 capsules by mouth twice daily Cephalexin (Keflex) 500 mg capsule Discontinued 1000 MG PO Twice daily 28 11October 25, 2017 11:00pm December 21, 2017 12:34pm 168 hr cloNIDine 0.16353 mg/hr transdermal system (20 sources) Central alpha-2 [...] 27, 2023 8:55am Start: 02-24-2022 End: 08-27-2023 Nhryqeydoxl-Ykuhsouir-Gfntst er (Trelegy Ellipta) 100-62.5-25 mcg blister with [...] 19, 2018 2:25pm April 14, 2018 4:13pm levothyroxine sodium 0.025 mg oral tablet (20 sources) l-Thyroxine Start: 05-17-2020 End: 02-25-2024 take 1 tablet by mouth once daily in the morning Levothyroxine 25 mcg tablet Discontinued 25 MCG PO Every morning October 27, 2023 11:00pm February 25, 2024 10:43am Levothyroxine So dium [...] 19, 2018 2:25pm April 14, 2018 4:13pm omeprazole 20 mg delayed release oral capsule (20 sources) Proton Pump Inhibitor Start: 02-26-2022 End: 03-07-2024 take 1 capsule by mouth once daily in the morning Omeprazole 20 mg capsule,delayed release(DR/EC) Discontinued 20 MG PO Every morning October 27, 2023 11:00pm March 07, 2024 8:51am ondansetron 4 mg disintegrating oral tablet (20 [...] knee] Chronic Other aftercare (1 source) 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; Translations: [OTH CLIENT ADMINISTRATOR CURRENT DRUG THERAPY] Onset: 2 Episodic Other aftercare (1 source) 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; Translations: [RETIREMENT USE ORAL HYPOGLYCEMIC DX] Onset: 2 Episodic Other aftercare (16 sources) Long-term current use of inhaled steroid; Translations: [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] 08-27-2023 Episodic Other aftercare (15 sources) 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 steroids; Translations: [Long-term [...] Onset: 2 Episodic Other lower respiratory disease (16 sources) Multiple nodules of lung; Translations: [Other [...] Chronic Other nutritional; endocrine; and metabolic disorders (9 sources) Morbid (severe) obesity due to excess [...] (adult) (pediatric)] 08-27-2023 Chronic Residual codes; unclassified (16 sources) Obstructive sleep apnea (adult) (pediatric); Translations: [Obstructive sleep apnea (adult)(pediatric)] Chronic Residual codes; unclassified (20 sources) Tobacco dependence syndrome; Translations: [Tobacco use] Episodic Residual codes; unclassified (20 sources) Early satiety; Translations: [Early satiety] 06-13-2021 Episodic Respiratory failure; insufficiency; arrest (adult) (20 sources) Lwehq-ib-flswcsv respiratory failure; Translations: [Acute and chronic respiratory [...] 12-11-2023 HbA1c (Bld) [Mass fraction] 6.5 % [facility] Activated partial thrombopla stin time (aPTT) in platelet poor plasma by coagulation aOrdered By: Sanya Valadez on 10-28-2023 aPTT Coag (PPP) [Time] 35.2 s 25.1-36.5 [facility] Comment on above: A hematocrit value g reater than 55% may lead to inaccurate results in coagulation testing. Patients having hematocrit values >55% require a special collection tube for coagulation studies. Please contact the laboratory at [phone] for redraw instructions. Automated basophil %Ordered By: Sanya Valadez on 10-28-2023 Basophils/100 WBC (Bld) 1.3 % . [facility] Comment on above: Performed By: #### B UN, LIPID, CREAT, CBC, LYTES, PP #### [facility] [address] [place] [address] Automated basophil countOrde red By: Sanya Valadez on 10-28-2023 Basophils (Bld) [#/Vol] 0.1 10*3/uL 0.0-0.2 [facility] Comment on above: Result Comment: PERF ORMED BY: [address] [place] [address] PATHOLOGIST MANAGER LAB SKYLER CLARK M.D. Performed By: #### B UN, LIPID, CREAT, CBC, LYTES, PP #### [facility] [address] Automated blood monocyte cou ntOrdered By: Sanya Valadez on 10-28-2023 Monocytes (Bld) [#/Vol] 0.4 10*3/uL 0.0-0.8 [facility] Comment on above: Performed By: #### B UN, LIPID, CREAT, CBC, LYTES, PP #### [facility] [address] Automated eosinophil %Ordere d By: Sanya Valadez on 10-28-2023 Eosinophils/100 WBC (Bld) 1.7 % . [facility] Comment on above: Performed By: #### B UN, LIPID, CREAT, CBC, LYTES, PP #### [address] Automated eosinophil countOr dered By: Sanya Valadez on 10-28-2023 Eosinophils (Bld) [#/Vol] 0.1 10*3/uL 0.0-0.45 [facility] Comment on above: Performed By: #### B UN, LIPID, CREAT, CBC, LYTES, PP #### [address] Automated monocyte %Ordered By: Sanya Valadez on 10-28-2023 Monocytes/100 WBC (Bld) 5.0 % . [facility] Comment on above: Performed By: #### B UN, LIPID, CREAT, CBC, LYTES, PP #### [facility] [address] Automated neutrophil %Ordere d By: Sanya Valadez on 10-28-2023 Neutrophils/100 WBC (Bld) 67.0 % . [facility] Comment on above: Performed By: #### B UN, LIPID, CREAT, CBC, LYTES, PP #### [facility] [address] [place] [address] [place] Carbon dioxide, total [Moles /volume] in Serum or PlasmaOrdered By: Sanya Valadez on 10-28-2023 CO2 [Moles/Vol] 28.0 mmol/L 21.0-31.0 [facility] Comment on above: Performed By: #### B UN, LIPID, CREAT, CBC, LYTES, PP ####[facility] [id number] [place] [address] [place] Chloride [Moles/volume] in S jade or PlasmaOrdered By: Sanya Valadez on 10-28-2023 Chloride [Moles/Vol] 106 mmol/L 98-107 [facility] Comment on above: Performed By: #### B UN, LIPID, CREAT, CBC, LYTES, PP ####[facility] [id number] [place] [address] [facility] Cholesterol [Mass/volume] in Serum or PlasmaOrdered By: Sanya Valadez on 10-28-2023 Cholesterol [Mass/Vol] 169 mg/dL 140-200 [facility] Comment on above: Chol less than 200 m g/dl low riskChol 201-239 mg/dl borderline riskChol 240 mg/dl and greater high risk Result Comment: Chol less than 200 mg/dl low risk Chol 201-239 mg/dl borderline risk Chol 240 mg/dl and greater high risk Performed By: #### B UN, LIPID, CREAT, CBC, LYTES, PP ####[facility] [id number] [place] [address] [facility] Cholesterol in LDL Calc [Mas s/Vol]Ordered By: Sanya Valadez on 10-28-2023 Cholesterol in LDL [Mass/Vol] 94 mg/dL 0-100 [facility] Comment on above: LDL ATP III CLASSIFI CATIONLDL less than 100 mg/dL OptimalLDL 100-129 mg/dL Near or above optimalLDL 130-159 mg/dL Borderline highLDL 160-189 mg/dL HighLDL greater than 189 mg/dL Very high Cholesterol in VLDL Calc [Ma ss/Vol]Ordered By: Sanya Valadez on 10-28-2023 Cholesterol in VLDL [Mass/Vol] 27 mg/dL [facility] Coagulation Profileon 2023 aPTT Coag (Bld) [Time] 35.2 s Normal 25.1-36.5 [facility] Comment on above: Result Comment: A he matocrit value greater than 55% may lead to inaccurate results in coagulation testing. Patients having hematocrit values >55% require a special collection tube for coagulation studies. Please contact the laboratory at [phone] for redraw instructions. PERFORMED BY: [facility] [address] [place] [address] PATHOLOGIST MANAGER LAB SKYLER CLARK M.D. Performed By: #### B UN, LIPID, CREAT, CBC, LYTES, PP #### [facility] [address] Complete Blood Count Auto Di ffon 10-28-2023 Mean Corpuscular HGB Conc 32.2 g/dL Normal 32.0-35.0 [facility] Comment on above: Performed By: #### B UN, LIPID, CREAT, CBC, LYTES, PP #### [facility] [address] NRBC% 0.1 /100{WBC} Normal 0-0.5 [facility] Comment on above: Performed By: #### B UN, LIPID, CREAT, CBC, LYTES, PP #### [address] Creatinineon 10-28-2023 GFR/1.73 sq M.predicted MDRD (S/P/Bld) [Vol rate/Area] mL/min/{1.73_m2} Normal [facility] Comment on above: Performed By: #### B UN, LIPID, CREAT, CBC, LYTES, PP ####[address] Creatinine [Mass/volume] in Serum or PlasmaOrdered By: Sanya Valadez on 10-28-2023 Creatinine [Mass/Vol] 0.97 mg/dL 0.60-1.20 [facility] Comment on above: Performed By: #### B UN, LIPID, CREAT, CBC, LYTES, PP ####[address] ECG 12 lead ECGon 10-28-2023 ECG 12 lead ECG [facility] [address] [place] [address] Electrocardiograph Report Signed Patient: Cynthia Lozano MR#: [id number] : 1965 Acct:[id number] Age/Sex: 57 / F ADM Date: 10/28/23 Loc: Room: Type: [facility] Attending Dr: Sanya Valadez MD Ordering Provider: Sanya Valadez MD Date of Service: 06/ ECG/ECG 12 lead ECG: [facility] PST Copies to: Test Reason : Blood [...] no longer present Confirmed by DORIS ROQUE [id number] on 10/28/2023 12:48:20 PM Referred By: RORY Electronically Signed By:CRISTAL GEORGE MD [facility] Transcribed By: MUS Signed By Rian George MD 10/28/23 1248 Normal [facility] Erythrocyte distribution wid th [Ratio] by Automated countOrdered By: Sanya Valadez on 10-28-2023 Erythrocyte distribution width (RBC) [Ratio] 16.0 % High 11.9-15.3 [facility] Comment on above: Performed By: #### B UN, LIPID, CREAT, CBC, LYTES, PP #### [facility] [address] Erythrocytes [#/volume] in B lood by Automated countOrdered By: Sanya Valadez on 10-28-2023 RBC (Bld) [#/Vol] 5.22 10*6/uL High 3.60-5.00 [facility] Comment on above: Performed By: #### B UN, LIPID, CREAT, CBC, LYTES, PP #### [facility] [address] Hematocrit [Volume Fraction] of Blood by Automated countOrdered By: Sanya Valadez on 10-28-2023 Hematocrit (Bld) [Volume fraction] 39.5 % 34.0-46.4 [facility] Comment on above: Performed By: #### B UN, LIPID, CREAT, CBC, LYTES, PP #### [facility] [address] [place] [address] [place] Hemoglobin [Mass/volume] in BloodOrdered By: Sanya Valadez on 10-28-2023 Hemoglobin (Bld) [Mass/Vol] 12.7 g/dL 11.8-15.4 [facility] Comment on above: Performed By: #### B UN, LIPID, CREAT, CBC, LYTES, PP #### [facility] [address] INR in Platelet poor plasma by Coagulation assayOrdered By: Sanya Valadez on 10-28-2023 INR Coag (PPP) [Relative time] 1.0 {INR} [facility] Comment on above: INR Therapeutic Rang e [...] UN, LIPID, CREAT, CBC, LYTES, PP #### [facility] [address] Leukocytes [#/volume] correc ceci for nucleated erythrocytes in Blood by Automated counOrdered By: Sanya Valadez on 10-28-2023 WBC corrected for nucl RBC Auto (Bld) [#/Vol] 8.9 10*3/uL 3.8-11.6 [facility] Leukocytes [#/volume] in Blo od by Automated countOrdered By: Sanya Valadez on 10-28-2023 WBC (Bld) [#/Vol] 8.9 10*3/uL 3.8-11.6 [facility] Comment on above: Performed By: #### B UN, LIPID, CREAT, CBC, LYTES, PP #### [facility] [address] Lipid Panelon 10-28-2023 LDL Cholesterol,Calculated 94 mg/dL Normal 0-100 [facility] Comment on above: Result Comment: LDL ATP III CLASSIFICATION LDL less than 100 mg/dL Optimal LDL 100-129 mg/dL Near or above optimal LDL 130-159 mg/dL Borderline high LDL 160-189 mg/dL High LDL greater than 189 mg/dL Very high Performed By: #### B UN, LIPID, CREAT, CBC, LYTES, PP ####[facility] Triglyceride w/Reflex 137 mg/dL Normal 0-149 [facility] Comment on above: Result Comment: TRIG ATP III CLASSIFICATION TRIG less than 150 mg/dL Normal TRIG 150-199 mg/dL Borderline high TRIG 200-500 mg/dL High TRIG greater than 500 mg/dL Very high Standard traceable to the Center for Disease Conrtrol and Prevention (CDC) test method. Performed By: #### B UN, LIPID, CREAT, CBC, LYTES, PP ####[facility] VLDL CHOLESTEROL 27 mg/dL Normal [facility] Comment on above: Performed By: #### B UN, LIPID, CREAT, CBC, LYTES, PP ####[facility] Lymphocytes [#/volume] in Bl ood by Automated countOrdered By: Sanya Valadez on 10-28-2023 Lymphocytes (Bld) [#/Vol] 2.2 10*3/uL 1.00-4.8 [facility] Comment on above: Performed By: #### B UN, LIPID, CREAT, CBC, LYTES, PP #### [facility] [address] Lymphocytes/100 leukocytes i n Blood by Automated countOrdered By: Sanya Valadez on 10-28-2023 Lymphocytes/100 WBC (Bld) 25.0 % . [facility] Comment on above: Performed By: #### B UN, LIPID, CREAT, CBC, LYTES, PP #### [facility] [address] MCH [Entitic mass] by Automa ceci countOrdered By: Sanya Valadez on 10-28-2023 MCH (RBC) [Entitic mass] 24.4 pg Low 24.7-34.3 [facility] Comment on above: Performed By: #### B UN, LIPID, CREAT, CBC, LYTES, PP #### [facility] [address] [place] [address] MCHC Auto (RBC) [Mass/Vol]Or dered By: Sanya Valadez on 10-28-2023 MCHC (RBC) [Mass/Vol] 32.2 g/dL 32.0-35.0 [facility] MCV [Entitic volume] by Auto mated countOrdered By: Sanya Valadez on 10-28-2023 MCV (RBC) [Entitic vol] 75.6 fL Low 80-100 [facility] Comment on above: Performed By: #### B UN, LIPID, CREAT, CBC, LYTES, PP #### [facility] [address] [place] [address] Neutrophils [#/volume] in Bl ood by Automated countOrdered By: Sanya Valadez on 10-28-2023 Neutrophils (Bld) [#/Vol] 6.0 10*3/uL 1.8-7.7 [facility] [facility] Comment on above: Performed By: #### B UN, LIPID, CREAT, CBC, LYTES, PP #### [facility] [address] [place] [address] No Panel InformationOrdered By: Sanya Valadez on 10-28-2023 Estimated GFR (CKD-EPI) > 60.0 mL/Min [facility] Creatinine Clearance (Chem N/A [facility] Nucleated erythrocytes [Pres ence] in Blood by Automated countOrdered By: Sanya Valadez on 10-28-2023 Nucleated RBC Auto Ql (Bld) 0.1 /100{WBC} 0-0.5 [facility] Platelet mean volume [Entiti c volume] in Blood by Automated countOrdered By: Sanya Valadez on 10-28-2023 Platelet mean volume (Bld) [Entitic vol] 7.7 fL 6.3-10.7 [facility] Comment on above: Performed By: #### B UN, LIPID, CREAT, CBC, LYTES, PP #### [facility] [address] Platelets [#/volume] in Bloo d by Automated countOrdered By: Sanya Valadez on 10-28-2023 Platelets (Bld) [#/Vol] 370 10*3/uL 150-450 [facility] Comment on above: Performed By: #### B UN, LIPID, CREAT, CBC, LYTES, PP #### [facility] [address] Potassium [Moles/volume] in Serum or PlasmaOrdered By: Sanya Valadez on 10-28-2023 Potassium [Moles/Vol] 5.0 mmol/L 3.5-5.1 [facility] Comment on above: Performed By: #### B UN, LIPID, CREAT, CBC, LYTES, PP ####[facility] [id number] Prothrombin time (PT)Ordered By: Sanya Valadez on 10-28-2023 PT Coag (PPP) [Time] 11.7 s 9.0-12.9 [facility] Comment on above: A hematocrit value g reater than 55% may lead to inaccurate results in coagulation testing. Patients having hematocrit values >55% require a special collection tube for coagulation studies. Please contact the laboratory at [phone] for redraw instructions. Result Comment: A he matocrit value greater than 55% may lead to inaccurate results in coagulation testing. Patients having hematocrit values >55% require a special collection tube for coagulation studies. Please contact the laboratory at [phone] for redraw instructions. Performed By: #### B UN, LIPID, CREAT, CBC, LYTES, PP #### [facility] [address] Serum or plasma anion gap de terminationOrdered By: Sanya Valadez on 10-28-2023 Anion gap [Moles/Vol] 12.0 mmol/L 6.0-15.0 [facility] Comment on above: Performed By: #### B UN, LIPID, CREAT, CBC, LYTES, PP ####[place] [id number] [address] Serum or plasma high density lipoprotein (HDL) cholesterol measurementOrdered By: Sanya Valadez on 10-28-2023 Cholesterol in HDL [Mass/Vol] 48 mg/dL 23- [facility] Comment on above: HDL CHOL ATP-III CLA SSIFICATION Cardiovascular RiskHDL > or equal to 60 mg/dL LOWHDL < 40 mg/dL HIGH Result Comment: HDL CHOL ATP-III CLASSIFICATION Cardiovascular Risk HDL > or equal to 60 mg/dL LOW HDL < 40 mg/dL HIGH Performed By: #### B UN, LIPID, CREAT, CBC, LYTES, PP ####[address] Serum or plasma total choles terol/high density lipoprotein (HDL) cholesterol mass ratOrdered By: Sanya Vlaadez on 10-28-2023 Cholesterol.total/Chol esterol in HDL [Mass ratio] 3.5 {ratio} <5.0 [facility] Comment on above: Result Comment: PERF ORMED BY: [facility] [address] [place] [address] PATHOLOGIST MANAGER LAB SKYLER CLARK M.D. Performed By: #### B UN, LIPID, CREAT, CBC, LYTES, PP ####[address] Sodium [Moles/volume] in Ser um or PlasmaOrdered By: Sanya Valadez on 10-28-2023 Sodium [Moles/Vol] 141 mmol/L 136-145 [facility] Comment on above: Performed By: #### B UN, LIPID, CREAT, CBC, LYTES, PP ####[address] Triglyceride [Mass/volume] i n Serum or PlasmaOrdered By: Sanya Valadez on 06-26-2024 Triglyceride [Mass/Vol] 137 mg/dL 0-149 [facility] Comment on above: TRIG ATP III CLASSIF ICATIONTRIG less than 150 mg/dL NormalTRIG 150-199 mg/dL Borderline highTRIG 200-500 mg/dL High TRIG greater than 500 mg/dL Very highStandard traceable to the Center for Disease Conrtrol and Prevention (CDC) test method. Urea nitrogen [Mass/volume] in Serum or PlasmaOrdered By: Sanya Valadez on 10-28-2023 Urea nitrogen [Mass/Vol] 29 mg/dL High 11-25 [facility] Comment on above: Performed By: #### B UN, LIPID, CREAT, CBC, LYTES, PP ####[facility] [id number] [address] NM darci perf SPECT rest stron 09-29-2023 NM darci perf SPECT rest str [facility] [address] [place] [address] Nuclear Medicine Report Signed Patient: Cynthia Lozano MR#: [id number] 1502 : 1965 Acct:[id number] Age/Sex: 57 / F ADM Date: 09/25/23 Loc: Room: Type: [facility] Attending Dr: Nirav Trujillo DO Copies to: MD Nirav Burdick DO Ordering Provider: Nirav Trujillo DO Date of Service: 09/25/23 NM/NM darci perf SPECT rest str: Shortness of breath, chest pain NUCLEAR MYOCARDIAL PERFUSION DATE OF PROCEDURE: 09/29/2023 ATTENDING SAW SUPERINTENDENT: Dr. Sanya Valadez REQUESTING PHYSICIAN: Dr. Trujillo [...] Sanya Valadez M.D.09/29/2023 6:28 PM Dictation Location: [place] [address] Transcribed By: [facility] 09/29/231827 Dictated By: Sanya Valadez MD 09/29/231822 Signed By: 09/29/231827 Normal [facility] CT lung screeningon 09-24-19 CT lung screening [place] [address] CT Scan Report Signed Patient: Cynthia Lozano MR#: [id number] 1502 : 1965 Acct:[id number] Age/Sex: 57 / F ADM Date: 09/24/23 Loc: Room: Type: [facility] Attending Dr: Nirav Trujillo DO Copies to: [...] Saavedra Jr., D.O.09/24/2023 3:20 PM Dictation Location: [place] [address] Transcribed By: [facility] 09/24/23 1520 Dictated By: Momo Saavedra Jr, DO 09/24/23 1513 Signed By: 09/24/23 1520 Normal [facility] FPG ECG *OFFICE ONLY*on FPG ECG *OFFICE ONLY* [facility] [address] [place] [place] [address] Electrocardiograph Report Signed Patient: Cynthia Lozano MR#: [id number] 1502 : 1965 Acct:[id number] Age/Sex: 57 / F ADM Date: 09/10/23 Loc: [facility] Room: Type: [facility] Attending Dr: Sanya Valadez MD Ordering [...] axis shifted right Confirmed by Sanya Valadez ([id number]) on 09/11/2023 12:58:03 PM Referred By: Electronically Signed By:Sanya Valadez Transcribed By: MUS Signed By Sanya Valadez MD 09/11/23 0540 Normal [facility] Alanine aminotransferase [En zymatic activity/volume] in Serum or PlasmaOrdered By: Morena Bravo on 08-27-2023 ALT [Catalytic activity/Vol] 17 U/L Normal 7-52 [facility] Comment on above: Performed By: #### C BC, LIPID, CMP #### [address] Albumin [Mass/volume] in Ser um or Plasma by Bromocresol green (BCG) dye binding methoOrdered By: Morena Bravo on 08-27-2023 Albumin BCG dye [Mass/Vol] 4.4 g/dL 3.5-5.7 [facility] Alkaline phosphatase [Enzyma tic activity/volume] in Serum or PlasmaOrdered By: Morena Bravo on 08-27-2023 ALP [Catalytic activity/Vol] 101 U/L Normal 34-104 [facility] Comment on above: Performed By: #### C BC, LIPID, CMP #### [address] Aspartate aminotransferase [ Enzymatic activity/volume] in Serum or PlasmaOrdered By: Morena Bravo on 08-27-2023 AST [Catalytic activity/Vol] 13 U/L Normal 13-39 [facility] Comment on above: Performed By: #### C BC, LIPID, CMP #### [address] Automated basophil %Ordered By: Morena Bravo on 08-27-2023 Basophils/100 WBC (Bld) 0.5 % Normal . [facility] Comment on above: Performed By: #### C BC, LIPID, CMP #### [address] Automated basophil countOrde red By: Morena Bravo on 08-27-2023 Basophils (Bld) [#/Vol] 0.0 10*3/uL Normal 0.0-0.2 [facility] Comment on above: Result Comment: PERF ORMED BY: [place] [address] PATHOLOGIST MANAGER LAB SKYLER CLARK M.D. Performed By: #### C BC, LIPID, CMP #### [address] Automated blood monocyte cou ntOrdered By: Morena Cheyenneerer on 08-27-2023 Monocytes (Bld) [#/Vol] 0.4 10*3/uL Normal 0.0-0.8 [facility] Comment on above: Performed By: #### C BC, LIPID, CMP #### [address] Automated eosinophil %Ordere d By: Morena Schwerer on 08-27-2023 Eosinophils/100 WBC (Bld) 1.9 % Normal . [facility] Comment on above: Performed By: #### C BC, LIPID, CMP #### [address] Automated eosinophil countOr dered By: Morena Schwerer on 08-27-2023 Eosinophils (Bld) [#/Vol] 0.2 10*3/uL Normal 0.0-0.45 [facility] Comment on above: Performed By: #### C BC, LIPID, CMP #### [address] Automated monocyte %Ordered By: Morena Schwerer on 08-27-2023 Monocytes/100 WBC (Bld) 5.0 % Normal . [facility] Comment on above: Performed By: #### C BC, LIPID, CMP #### [address] Automated neutrophil %Ordere d By: Morena Schwerer on 08-27-2023 Neutrophils/100 WBC (Bld) 61.8 % Normal . [facility] Comment on above: Performed By: #### C BC, LIPID, CMP #### [address] Bilirubin.total [Mass/volume ] in Serum or PlasmaOrdered By: Morena Schwerer on 08-27-2023 Bilirubin [Mass/Vol] 0.3 mg/dL Normal 0.3-1.0 [facility] Comment on above: Performed By: #### C BC, LIPID, CMP #### [facility] [address] [place] [address] [place] Calcium [Mass/volume] in Ser um or PlasmaOrdered By: Morena Schwerer on 08-27-2023 Calcium [Mass/Vol] 10.5 mg/dL High 8.6-10.3 [facility] Comment on above: Performed By: #### C BC, LIPID, CMP #### [facility] [address] [place] [address] [place] Carbon dioxide, total [Moles /volume] in Serum or PlasmaOrdered By: Morena Schwerer on 08-27-2023 CO2 [Moles/Vol] 28.5 mmol/L Normal 21.0-31.0 [facility] Comment on above: Performed By: #### C BC, LIPID, CMP #### [facility] [address] [place] [address] [place] Chloride [Moles/volume] in S jade or PlasmaOrdered By: Morena Schwerer on 08-27-2023 Chloride [Moles/Vol] 101 mmol/L Normal 98-107 [facility] Comment on above: Performed By: #### C BC, LIPID, CMP #### [facility] [address] [place] [address] [place] Cholesterol [Mass/volume] in Serum or PlasmaOrdered By: Morena Schwerer on 08-27-2023 Cholesterol [Mass/Vol] 186 mg/dL Normal 140-200 [facility] Comment on above: Chol less than 200 m g/dl low riskChol 201-239 mg/dl borderline riskChol 240 mg/dl and greater high risk Result Comment: Chol less than 200 mg/dl low risk Chol 201-239 mg/dl borderline risk Chol 240 mg/dl and greater high risk Performed By: #### C BC, LIPID, CMP #### [facility] [address] [place] [address] [place] Cholesterol in LDL Calc [Mas s/Vol]Ordered By: Morena Schwerer on 08-27-2023 Cholesterol in LDL [Mass/Vol] 108 mg/dL High 0-100 [facility] Comment on above: LDL ATP III CLASSIFI CATIONLDL less than 100 mg/dL OptimalLDL 100-129 mg/dL Near or above optimalLDL 130-159 mg/dL Borderline highLDL 160-189 mg/dL HighLDL greater than 189 mg/dL Very high Cholesterol in VLDL Calc [Ma ss/Vol]Ordered By: Morena Bravo on 08-27-2023 Cholesterol in VLDL [Mass/Vol] 31 mg/dL [facility] Complete Blood Count Auto Di ffon 08-27-2023 Mean Corpuscular HGB Conc 32.0 g/dL Normal 32.0-35.0 [facility] Comment on above: Performed By: #### C BC, LIPID, CMP #### [facility] [address] [place] [address] NRBC% 0.1 /100{WBC} Normal 0-0.5 [facility] Comment on above: Performed By: #### C BC, LIPID, CMP #### [facility] [address] [place] [address] Comprehensive Metabolic Pane xochilt 08-27-2023 Albumin [Mass/Vol] 4.4 g/dL Normal 3.5-5.7 [facility] Comment on above: Performed By: #### C BC, LIPID, CMP #### [address] GFR/1.73 sq M.predicted MDRD (S/P/Bld) [Vol rate/Area] mL/min/{1.73_m2} Normal [facility] Comment on above: Performed By: #### C BC, LIPID, CMP #### [address] Creatinine [Mass/volume] in Serum or PlasmaOrdered By: Morena Bravo on 08-27-2023 Creatinine [Mass/Vol] 0.86 mg/dL Normal 0.60-1.20 [facility] Comment on above: Performed By: #### C BC, LIPID, CMP #### [address] Erythrocyte distribution wid th [Ratio] by Automated countOrdered By: Morena Bravo on 08-27-2023 Erythrocyte distribution width (RBC) [Ratio] 16.3 % High 11.9-15.3 [facility] Comment on above: Performed By: #### C BC, LIPID, CMP #### [address] Erythrocytes [#/volume] in B lood by Automated countOrdered By: Morena Bravo on 08-27-2023 RBC (Bld) [#/Vol] 5.09 10*6/uL High 3.60-5.00 [facility] Comment on above: Performed By: #### C RADHIKA LIPID, CMP #### [address] Glucose [Mass/volume] in Ser um or PlasmaOrdered By: Morena Bravo on 08-27-2023 Glucose [Mass/Vol] 91 mg/dL Normal 70-100 [facility] Comment on above: ADA recommended refe rence rangeRandom Glucose Reference Range is dependent on time and content of last meal. Glucose of more than 200 mg/dL in a nonstressed, ambulatory subject supports the diagnosis of Diabetes Mellitus. Result Comment: Coggon om Glucose Reference Range is dependent on time and content of last meal. Glucose of more than 200 mg/dL in a nonstressed, ambulatory subject supports the diagnosis of Diabetes Mellitus. ADA recommended reference range Performed By: #### C BC, LIPID, CMP #### [facility] [address] [place] [address] [place] Hematocrit [Volume Fraction] of Blood by Automated countOrdered By: Morena Bravo on 08-27-2023 Hematocrit (Bld) [Volume fraction] 39.2 % Normal 34.0-46.4 [facility] Comment on above: Performed By: #### C BC, LIPID, CMP #### [address] Hemoglobin [Mass/volume] in BloodOrdered By: Morena Bravo on 08-27-2023 Hemoglobin (Bld) [Mass/Vol] 12.6 g/dL Normal 11.8-15.4 [facility] Comment on above: Performed By: #### C BC, LIPID, CMP #### [facility] [address] Leukocytes [#/volume] correc ceci for nucleated erythrocytes in Blood by Automated counOrdered By: Morena Bravo on 08-27-2023 WBC corrected for nucl RBC Auto (Bld) [#/Vol] 8.4 10*3/uL 3.8-11.6 [facility] Leukocytes [#/volume] in Blo od by Automated countOrdered By: Morena Bravo on 08-27-2023 WBC (Bld) [#/Vol] 8.4 10*3/uL Normal 3.8-11.6 [facility] Comment on above: Performed By: #### C BC, LIPID, CMP #### [address] Lipid Panelon 08-27-2023 LDL Cholesterol,Calculated 108 mg/dL High 0-100 [facility] Comment on above: Result Comment: LDL ATP III CLASSIFICATION LDL less than 100 mg/dL Optimal LDL 100-129 mg/dL Near or above optimal LDL 130-159 mg/dL Borderline high LDL 160-189 mg/dL High LDL greater than 189 mg/dL Very high Performed By: #### C BC, LIPID, CMP #### [address] Triglyceride w/Reflex 157 mg/dL High 0-149 [facility] Comment on above: Result Comment: TRIG ATP III CLASSIFICATION TRIG less than 150 mg/dL Normal TRIG 150-199 mg/dL Borderline high TRIG 200-500 mg/dL High TRIG greater than 500 mg/dL Very high Standard traceable to the Center for Disease Conrtrol and Prevention (CDC) test method. Performed By: #### C BC, LIPID, CMP #### [address] VLDL CHOLESTEROL 31 mg/dL Normal [facility] Comment on above: Performed By: #### C BC, LIPID, CMP #### [address] Lymphocytes [#/volume] in Bl ood by Automated countOrdered By: Morena Bravo on 08-27-2023 Lymphocytes (Bld) [#/Vol] 2.6 10*3/uL Normal 1.00-4.8 [facility] Comment on above: Performed By: #### C BC, LIPID, CMP #### [facility] [address] [place] [address] Lymphocytes/100 leukocytes i n Blood by Automated countOrdered By: Morena Bravo on 08-27-2023 Lymphocytes/100 WBC (Bld) 30.8 % Normal . [facility] Comment on above: Performed By: #### C BC, LIPID, CMP #### [address] MCH [Entitic mass] by Automa ceci countOrdered By: Morena Bravo on 08-27-2023 MCH (RBC) [Entitic mass] 24.6 pg Low 24.7-34.3 [facility] Comment on above: Performed By: #### C BC, LIPID, CMP #### [address] MCHC Auto (RBC) [Mass/Vol]Or dered By: Morean Bravo on 08-27-2023 MCHC (RBC) [Mass/Vol] 32.0 g/dL 32.0-35.0 [facility] MCV [Entitic volume] by Auto mated countOrdered By: Morena Bravo on 08-27-2023 MCV (RBC) [Entitic vol] 76.9 fL Low 80-100 [facility] Comment on above: Performed By: #### C BC, LIPID, CMP #### [facility] [address] [place] [address] [place] Neutrophils [#/volume] in Bl ood by Automated countOrdered By: Morena Bravo on 08-27-2023 Neutrophils (Bld) [#/Vol] 5.2 10*3/uL Normal 1.8-7.7 [facility] Comment on above: Performed By: #### C BC, LIPID, CMP #### [facility] [address] No Panel InformationOrdered By: Morena Bravo on 08-27-2023 Estimated GFR (CKD-EPI) > 60.0 mL/Min [facility] Creatinine Clearance (Chem N/A [facility] Nucleated erythrocytes [Pres ence] in Blood by Automated countOrdered By: Morena Bravo on 08-27-2023 Nucleated RBC Auto Ql (Bld) 0.1 /100{WBC} 0-0.5 [facility] Platelet mean volume [Entiti c volume] in Blood by Automated countOrdered By: Morena Bravo on 08-27-2023 Platelet mean volume (Bld) [Entitic vol] 8.1 fL Normal 6.3-10.7 [facility] Comment on above: Performed By: #### C BC, LIPID, CMP #### [facility] [address] [place] [address] [place] Platelets [#/volume] in Bloo d by Automated countOrdered By: Morena Bravo on 08-27-2023 Platelets (Bld) [#/Vol] 386 10*3/uL Normal 150-450 [facility] Comment on above: Performed By: #### C BC, LIPID, CMP #### [place] [address] [place] Potassium [Moles/volume] in Serum or PlasmaOrdered By: Morena Bravo on 08-27-2023 Potassium [Moles/Vol] 5.1 mmol/L Normal 3.5-5.1 [facility] Comment on above: Performed By: #### C BC, LIPID, CMP #### [facility] [address] [place] [address] [place] Protein [Mass/volume] in Ser um or PlasmaOrdered By: Morena Bravo on 08-27-2023 Protein [Mass/Vol] 6.8 g/dL Normal 6.4-8.9 [facility] Comment on above: Performed By: #### C BC, LIPID, CMP #### [address] [address] [place] Serum globulin measurement b y calculation (mass/volume)Ordered By: Morena Bravo on 08-27-2023 Globulin (S) [Mass/Vol] 2.4 g/dL Normal [facility] Comment on above: Performed By: #### C BC, LIPID, CMP #### [facility] [address] [place] [address] Serum or plasma albumin/glob ulin mass ratioOrdered By: Morena Bravo on 08-27-2023 Albumin/Globulin [Mass ratio] 1.8 {ratio} Normal [facility] Comment on above: Performed By: #### C BC, LIPID, CMP #### [facility] [address] [place] [address] Serum or plasma anion gap de terminationOrdered By: Morena Bravo on 08-27-2023 Anion gap [Moles/Vol] 13.6 mmol/L Normal 6.0-15.0 [facility] Comment on above: Performed By: #### C BC, LIPID, CMP #### [facility] [address] [place] [address] Serum or plasma high density lipoprotein (HDL) cholesterol measurementOrdered By: Morena Bravo on 08-27-2023 Cholesterol in HDL [Mass/Vol] 47 mg/dL Normal 23-92 [facility] Comment on above: HDL CHOL ATP-III CLA SSIFICATION Cardiovascular RiskHDL > or equal to 60 mg/dL LOWHDL < 40 mg/dL HIGH Result Comment: HDL CHOL ATP-III CLASSIFICATION Cardiovascular Risk HDL > or equal to 60 mg/dL LOW HDL < 40 mg/dL HIGH Performed By: #### C BC, LIPID, CMP #### [facility] [address] [place] [address] Serum or plasma total choles terol/high density lipoprotein (HDL) cholesterol mass ratOrdered By: Morena Bravo on 08-27-2023 Cholesterol.total/Chol esterol in HDL [Mass ratio] 4.0 {ratio} Normal <5.0 [facility] Comment on above: Result Comment: PERF ORMED BY: [address] [place] [address] PATHOLOGIST MANAGER LAB SKYLER CLARK M.D. Performed By: #### C BC, LIPID, CMP #### [address] Sodium [Moles/volume] in Ser um or PlasmaOrdered By: Morena Bravo on 08-27-2023 Sodium [Moles/Vol] 138 mmol/L Normal 136-145 [facility] Comment on above: Performed By: #### C BC, LIPID, CMP #### [facility] [address] Triglyceride [Mass/volume] i n Serum or PlasmaOrdered By: Morena Bravo on 08-27-2023 Triglyceride [Mass/Vol] 157 mg/dL High 0-149 [facility] Comment on above: TRIG ATP III CLASSIF ICATIONTRIG less than 150 mg/dL NormalTRIG 150-199 mg/dL Borderline highTRIG 200-500 mg/dL High TRIG greater than 500 mg/dL Very highStandard traceable to the Center for Disease Conrtrol and Prevention (CDC) test method. Urea nitrogen [Mass/volume] in Serum or PlasmaOrdered By: Morena Bravo on 08-27-2023 Urea nitrogen [Mass/Vol] 34 mg/dL High -25 [facility] Comment on above: Performed By: #### C BC, LIPID, CMP #### [place] [id number] [place] HbA1c HPLC (Bld) [Mass fract ion]on 07-27-2023 HbA1c (Bld) [Mass fraction] 6.2 % [facility] A1C HEMOGLOBINon 04-13-2023 HbA1c (Bld) [Mass fraction] 6.3 % [facility] Other HbA1c (Bld) [Mass fraction]o n 04-13-2023 A1C HEMOGLOBIN [facility] [employer] Other MR lumbar spine wo conon MR lumbar spine wo con [facility] [address] [place] [id number] XRay Report Signed Patient: Cynthia Lozano MR#: [id number] 1502 : 1965 Acct:[id number] Age/Sex: 57 / F ADM Date: 04/07/23 Loc: Room: Type: [facility] Attending Dr: Morena Bravo DO Copies to: Morena Bravo DO Ordering Provider: Morena Bravo DO Date of Service: 04/07/23 MR/MR lumbar spine wo con: Radicular low back pain ([id number]) XR/XR pre/post mri xray: M54.10 CLINICAL DATA: [...] Marimar Dodd M.D.04/07/2023 4:26 PM Dictation Location: [place] [address] Transcribed By: [facility] 04/07/23 1626 Dictated By: Marimar Dodd MD 04/07/23 1615 Signed By: 04/07/23 1624 Normal [facility] A1C HEMOGLOBINon 12-12-2022 HbA1c (Bld) [Mass fraction] 5.9 % [facility] Other Complete Blood Count Auto Di ffon 12-12-2022 Basophils (Bld) [#/Vol] 0.918448696 10*3/uL Normal 0.0-0.2 10*3/uL [facility] Other Basophils/100 WBC (Bld) 1.300 % . % [facility] Other Eosinophils (Bld) [#/Vol] 0.623252242 10*3/uL Normal 0.0-0.45 10*3/uL [facility] Other Eosinophils/100 WBC (Bld) 2.200 % . % [facility] Other Erythrocyte distribution width (RBC) [Ratio] 16.000 % High 11.9-15.3 % [facility] Other Hematocrit (Bld) [Volume fraction] 39.800 % Normal 34.0-46.4 % [facility] Other Hemoglobin (Bld) [Mass/Vol] 13.391336 g/dL Normal 11.8-15.4 g/dL [facility] Other Lymphocytes (Bld) [#/Vol] 2.009097289 10*3/uL Normal 1.00-4.8 10*3/uL [facility] Other Lymphocytes/100 WBC (Bld) 23.000 % . % [facility] Other MCH (RBC) [Entitic mass] 25.4000 pg Normal 24.7-34.3 pg [facility] Other MCV (RBC) [Entitic vol] 77.7000 fL Low 80-100 fL [facility] Other Monocytes (Bld) [#/Vol] 0.070370003 10*3/uL Normal 0.0-0.8 10*3/uL [facility] Other Monocytes/100 WBC (Bld) 4.400 % . % [facility] Other Neutrophils (Bld) [#/Vol] 6.940159597 10*3/uL Normal 1.8-7.7 10*3/uL [facility] Other Neutrophils/100 WBC (Bld) 69.100 % . % [facility] Other Platelet mean volume (Bld) [Entitic vol] 8.2000 fL Normal 6.3-10.7 fL [facility] Other WBC (Bld) [#/Vol] 8.959834382 10*3/uL Normal 3.8 -11.6 10*3/uL [facility] Other Complete Blood Count Auto Diff 8.9 10*3/uL Normal 3.8-11.6 10*3/uL [facility] Other Complete Blood Count Auto Diff 32.7 g/dL Normal 32.0-35.0 g/dL [facility] Other Complete Blood Count Auto Diff 0.1 /100{WBC} Normal 0-0.5 /100{WBC} [facility] Other Basophils (Bld) [#/Vol] 0.1 10*3/uL Normal 0.0-0.2 [facility] Comment on above: Order Comment: Reaso n for Exam Asthma-COPD overlap syndrome;Type 2 diabetes mellitus withou Result Comment: PERF ORMED BY: [address] [place] [address] PATHOLOGIST MANAGER LAB SKYLER CLARK M.D. Performed By: #### L IPID, CMP, T4F, CBC, TSH3 ####[place] [id number] [facility] Basophils/100 WBC (Bld) 1.3 % Normal . [facility] Comment on above: Order Comment: Reaso n for Exam Asthma-COPD overlap syndrome;Type 2 diabetes mellitus withou Performed By: #### L IPID, CMP, T4F, CBC, TSH3 ####[place] [id number] [facility] Eosinophils (Bld) [#/Vol] 0.2 10*3/uL Normal 0.0-0.45 [facility] Comment on above: Order Comment: Reaso n for Exam Asthma-COPD overlap syndrome;Type 2 diabetes mellitus withou Performed By: #### L IPID, CMP, T4F, CBC, TSH3 ####[address] [address] [facility] Eosinophils/100 WBC (Bld) 2.2 % Normal . [facility] Comment on above: Order Comment: Reaso n for Exam Asthma-COPD overlap syndrome;Type 2 diabetes mellitus withou Performed By: #### L IPID, CMP, T4F, CBC, TSH3 ####[place] [id number] [facility] Erythrocyte distribution width (RBC) [Ratio] 16.0 % High 11.9-15.3 [facility] Comment on above: Order Comment: Reaso n for Exam Asthma-COPD overlap syndrome;Type 2 diabetes mellitus withou Performed By: #### L IPID, CMP, T4F, CBC, TSH3 ####[address] Hematocrit (Bld) [Volume fraction] 39.8 % Normal 34.0-46.4 [facility] Comment on above: Order Comment: Reaso n for Exam Asthma-COPD overlap syndrome;Type 2 diabetes mellitus withou Performed By: #### L IPID, CMP, T4F, CBC, TSH3 ####[address] Hemoglobin (Bld) [Mass/Vol] 13.0 g/dL Normal 11.8-15.4 [facility] Comment on above: Order Comment: Reaso n for Exam Asthma-COPD overlap syndrome;Type 2 diabetes mellitus withou Performed By: #### L IPID, CMP, T4F, CBC, TSH3 ####[address] Lymphocytes (Bld) [#/Vol] 2.0 10*3/uL Normal 1.00-4.8 [facility] Comment on above: Order Comment: Reaso n for Exam Asthma-COPD overlap syndrome;Type 2 diabetes mellitus withou Performed By: #### L IPID, CMP, T4F, CBC, TSH3 ####[place] [id number] [facility] Lymphocytes/100 WBC (Bld) 23.0 % Normal . [facility] Comment on above: Order Comment: Reaso n for Exam Asthma-COPD overlap syndrome;Type 2 diabetes mellitus withou Performed By: #### L IPID, CMP, T4F, CBC, TSH3 ####[place] [id number] [facility] MCH (RBC) [Entitic mass] 25.4 pg Normal 24.7-34.3 [facility] Comment on above: Order Comment: Reaso n for Exam Asthma-COPD overlap syndrome;Type 2 diabetes mellitus withou Performed By: #### L IPID, CMP, T4F, CBC, TSH3 ####[place] [id number] [facility] MCV (RBC) [Entitic vol] 77.7 fL Low 80-100 [facility] Comment on above: Order Comment: Reaso n for Exam Asthma-COPD overlap syndrome;Type 2 diabetes mellitus withou Performed By: #### L IPID, CMP, T4F, CBC, TSH3 ####[address] Mean Corpuscular HGB Conc 32.7 g/dL Normal 32.0-35.0 [facility] Comment on above: Order Comment: Reaso n for Exam Asthma-COPD overlap syndrome;Type 2 diabetes mellitus withou Performed By: #### L IPID, CMP, T4F, CBC, TSH3 ####[place] [id number] [facility] Monocytes (Bld) [#/Vol] 0.4 10*3/uL Normal 0.0-0.8 [facility] Comment on above: Order Comment: Reaso n for Exam Asthma-COPD overlap syndrome;Type 2 diabetes mellitus withou Performed By: #### L IPID, CMP, T4F, CBC, TSH3 ####[place] [id number] [facility] Monocytes/100 WBC (Bld) 4.4 % Normal . [facility] Comment on above: Order Comment: Reaso n for Exam Asthma-COPD overlap syndrome;Type 2 diabetes mellitus withou Performed By: #### L IPID, CMP, T4F, CBC, TSH3 ####[place] [id number] [facility] Neutrophils (Bld) [#/Vol] 6.1 10*3/uL Normal 1.8-7.7 [facility] Comment on above: Order Comment: Reaso n for Exam Asthma-COPD overlap syndrome;Type 2 diabetes mellitus withou Performed By: #### L IPID, CMP, T4F, CBC, TSH3 ####[place] [id number] [place] Neutrophils/100 WBC (Bld) 69.1 % Normal . [facility] Comment on above: Order Comment: Reaso n for Exam Asthma-COPD overlap syndrome;Type 2 diabetes mellitus withou Performed By: #### L IPID, CMP, T4F, CBC, TSH3 ####[facility] [place] [address] [facility] NRBC% 0.1 /100{WBC} Normal 0-0.5 [facility] Comment on above: Order Comment: Reaso n for Exam Asthma-COPD overlap syndrome;Type 2 diabetes mellitus withou Performed By: #### L IPID, CMP, T4F, CBC, TSH3 ####[place] [address] [place] [id number] [facility] Platelet mean volume (Bld) [Entitic vol] 8.2 fL Normal 6.3-10.[address] [facility] Comment on above: Order Comment: Reaso n for Exam Asthma-COPD overlap syndrome;Type 2 diabetes mellitus withou Performed By: #### L IPID, CMP, T4F, CBC, TSH3 ####[address] Platelets (Bld) [#/Vol] 394 10*3/uL Normal 150-450 Cursogram [facility] [employer] Other Comment on above: Order Comment: Reaso n for Exam Asthma-COPD overlap syndrome;Type 2 diabetes mellitus withou Performed By: #### L IPID, CMP, T4F, CBC, TSH3 ####[address] RBC (Bld) [#/Vol] 5.13 10*6/uL High 3.60-5.00 Cursogram [facility] [employer] Other Comment on above: Order Comment: Reaso n for Exam Asthma-COPD overlap syndrome;Type 2 diabetes mellitus withou Performed By: #### L IPID, CMP, T4F, CBC, TSH3 ####[place] [id number] [facility] WBC (Bld) [#/Vol] 8.9 10*3/uL Normal 3.8-11.6 [facility] Comment on above: Order Comment: Reaso n for Exam Asthma-COPD overlap syndrome;Type 2 diabetes mellitus withou Performed By: #### L IPID, CMP, T4F, CBC, TSH3 ####[place] [address] [place] [address] [facility] Comprehensive Metabolic Pane xochilt 12-12-2022 Albumin [Mass/Vol] 4.543407 g/dL Normal 3.5-5.7 g/dL [facility] Other Bilirubin [Mass/Vol] 0.9337591 mg/dL Normal 0.3- 1.0 mg/dL [facility] Other Calcium [Mass/Vol] 10.9628863 mg/dL High 8.6-1 0.3 mg/dL [facility] Other CO2 [Moles/Vol] 31.78533357 mmol/L High 21.0-3 1.0 mmol/L [facility] Other Creatinine [Mass/Vol] 0.46358379 mg/dL Normal 0. 60-1.20 mg/dL [facility] Other Potassium [Moles/Vol] 5.43356477 mmol/L Normal 3 .5-5.1 mmol/L [facility] Other Protein [Mass/Vol] 7.754028 g/dL Normal 6.4-8.9 g/dL [facility] Other Comprehensive Metabolic Panel 2.5 g/dL [facility] Other Albumin [Mass/Vol] 4.6 g/dL Normal 3.5-5.7 [facility] Comment on above: Order Comment: Reaso n for Exam Asthma-COPD overlap syndrome;Type 2 diabetes mellitus withou FASTING. JKW Performed By: #### L IPID, CMP, T4F, CBC, TSH3 ####[facility] [address] [place] [address] [facility] Albumin/Globulin [Mass ratio] 1.8 {ratio} Normal [facility] Other Comment on above: Order Comment: Reaso n for Exam Asthma-COPD overlap syndrome;Type 2 diabetes mellitus withou FASTING. JKW Performed By: #### L IPID, CMP, T4F, CBC, TSH3 ####[address] [address] [facility] ALP [Catalytic activity/Vol] 130 U/L High 34-104 Cursogram [facility] [employer] Other Comment on above: Order Comment: Reaso n for Exam Asthma-COPD overlap syndrome;Type 2 diabetes mellitus withou FASTING. JKW Performed By: #### L IPID, CMP, T4F, CBC, TSH3 ####[place] [id number] [facility] ALT [Catalytic activity/Vol] 17 U/L Normal 7-52 Cursogram [facility] [employer] Other Comment on above: Order Comment: Reaso n for Exam Asthma-COPD overlap syndrome;Type 2 diabetes mellitus withou FASTING. JKW Performed By: #### L IPID, CMP, T4F, CBC, TSH3 ####[place] [id number] [facility] Anion gap [Moles/Vol] 12.5 mmol/L Normal 6.0-15.0 [facility] Comment on above: Order Comment: Reaso n for Exam Asthma-COPD overlap syndrome;Type 2 diabetes mellitus withou FASTING. JKW Performed By: #### L IPID, CMP, T4F, CBC, TSH3 ####[place] [id number] [facility] AST [Catalytic activity/Vol] 12 U/L Low 13-39 Cursogram [facility] [employer] Other Comment on above: Order Comment: Reaso n for Exam Asthma-COPD overlap syndrome;Type 2 diabetes mellitus withou FASTING. JKW Performed By: #### L IPID, CMP, T4F, CBC, TSH3 ####[address] [address] [facility] Bilirubin [Mass/Vol] 0.3 mg/dL Normal 0.3-1.0 [facility] Comment on above: Order Comment: Reaso n for Exam Asthma-COPD overlap syndrome;Type 2 diabetes mellitus withou FASTING. JKW Performed By: #### L IPID, CMP, T4F, CBC, TSH3 ####[facility] [place] [address] [facility] Calcium [Mass/Vol] 10.4 mg/dL High 8.6-10.3 The [facility] Comment on above: Order Comment: Reaso n for Exam Asthma-COPD overlap syndrome;Type 2 diabetes mellitus withou FASTING. JKW Performed By: #### L IPID, CMP, T4F, CBC, TSH3 ####[place] [address] [place] [address] [facility] Chloride [Moles/Vol] 99 mmol/L Normal 98-107 [facility] [employer] Other Comment on above: Order Comment: Reaso n for Exam Asthma-COPD overlap syndrome;Type 2 diabetes mellitus withou FASTING. JKW Performed By: #### L IPID, CMP, T4F, CBC, TSH3 ####[place] [address] [place] [address] [facility] CO2 [Moles/Vol] 31.5 mmol/L High 21.0-31.0 The [facility] Comment on above: Order Comment: Reaso n for Exam Asthma-COPD overlap syndrome;Type 2 diabetes mellitus withou FASTING. JKW Performed By: #### L IPID, CMP, T4F, CBC, TSH3 ####[place] [address] [place] [address] [facility] Creatinine [Mass/Vol] 0.96 mg/dL Normal 0.60-1.20 [facility] Comment on above: Order Comment: Reaso n for Exam Asthma-COPD overlap syndrome;Type 2 diabetes mellitus withou FASTING. JKW Performed By: #### L IPID, CMP, T4F, CBC, TSH3 ####[address] [address] [place] GFR/1.73 sq M.predicted MDRD (S/P/Bld) [Vol rate/Area] mL/min/{1.73_m2} Normal [place] [employer] Other Comment on above: Order Comment: Reaso n for Exam Asthma-COPD overlap syndrome;Type 2 diabetes mellitus withou FASTING. JKW Performed By: #### L IPID, CMP, T4F, CBC, TSH3 ####[facility] [place] [address] [facility] Globulin (S) [Mass/Vol] 2.5 g/dL Normal [facility] Comment on above: Order Comment: Reaso n for Exam Asthma-COPD overlap syndrome;Type 2 diabetes mellitus withou FASTING. JKW Performed By: #### L IPID, CMP, T4F, CBC, TSH3 ####[facility] [place] [address] [facility] Glucose [Mass/Vol] 92 mg/dL Normal 70-100 [facility] Other Comment on above: Order Comment: Reaso n for Exam Asthma-COPD overlap syndrome;Type 2 diabetes mellitus withou FASTING. JKW Result Comment: [facility] Glucose Reference Range is dependent on time and content of last meal. Glucose of more than 200 mg/dL in a nonstressed, ambulatory subject supports the diagnosis of Diabetes Mellitus. ADA recommended reference range Performed By: #### L IPID, CMP, T4F, CBC, TSH3 ####[place] [address] [place] [address] [facility] Potassium [Moles/Vol] 5.0 mmol/L Normal 3.5-5.1 [facility] Comment on above: Order Comment: Reaso n for Exam Asthma-COPD overlap syndrome;Type 2 diabetes mellitus withou FASTING. JKW Performed By: #### L IPID, CMP, T4F, CBC, TSH3 ####[facility] [place] [address] [facility] Protein [Mass/Vol] 7.1 g/dL Normal 6.4-8.9 The [facility] Comment on above: Order Comment: Reaso n for Exam Asthma-COPD overlap syndrome;Type 2 diabetes mellitus withou FASTING. JKW Performed By: #### L IPID, CMP, T4F, CBC, TSH3 ####[facility] [place] [address] [facility] Sodium [Moles/Vol] 138 mmol/L Normal 136-145 [facility] Other Comment on above: Order Comment: Reaso n for Exam Asthma-COPD overlap syndrome;Type 2 diabetes mellitus withou FASTING. JKW Performed By: #### L IPID, CMP, T4F, CBC, TSH3 ####[facility] [place] [address] [facility] Urea nitrogen [Mass/Vol] 29 mg/dL High 7-25 [facility] Other Comment on above: Order Comment: Reaso n for Exam Asthma-COPD overlap syndrome;Type 2 diabetes mellitus withou FASTING. JKW Performed By: #### L IPID, CMP, T4F, CBC, TSH3 ####[facility] [place] [address] [facility] Free T4 (Free Thyroxine)on 0 12-12-2022 Free T4 [Mass/Vol] 0.85 ng/dL Normal 0.61-1.12 The [facility] Comment on above: Order Comment: Reaso n for Exam Asthma-COPD overlap syndrome;Type 2 diabetes mellitus withou FASTING. JKW Performed By: #### L IPID, CMP, T4F, CBC, TSH3 ####[facility] [id number] [place] [address] [facility] HbA1c (Bld) [Mass fraction]o n 12-12-2022 A1C HEMOGLOBIN [employer] Other Lipid Panelon 12-12-2022 Cholesterol in LDL Elph Qn 103 mg/dL High 0-100 mg/dL [facility] Other Lipid Panel 122 mg/dL Normal 0-149 mg/dL [facility] Other Lipid Panel 24 mg/dL [facility] Other Cholesterol [Mass/Vol] 171 mg/dL Normal 140-200 No [address] [facility] Other Comment on above: Order Comment: Reaso n for Exam Asthma-COPD overlap syndrome;Type 2 diabetes mellitus withou FASTING. JKW Result Comment: Chol less than 200 mg/dl low risk Chol 201-239 mg/dl borderline risk Chol 240 mg/dl and greater high risk Performed By: #### L IPID, CMP, T4F, CBC, TSH3 ####[facility] [address] [place] [address] [facility] Cholesterol in HDL [Mass/Vol] 44 mg/dL Normal 23-92 Cursogram [facility] [employer] Other Comment on above: Order Comment: Reaso n for Exam Asthma-COPD overlap syndrome;Type 2 diabetes mellitus withou FASTING. JKW Result Comment: HDL CHOL ATP-III CLASSIFICATION Cardiovascular Risk HDL > or equal to 60 mg/dL LOW HDL < 40 mg/dL HIGH Performed By: #### L IPID, CMP, T4F, CBC, TSH3 ####[facility] [place] [id number] [facility] Cholesterol.total/Chol esterol in HDL [Mass ratio] 3.9 {ratio} Normal <5.0 [facility] [employer] Other Comment on above: Order Comment: Reaso n for Exam Asthma-COPD overlap syndrome;Type 2 diabetes mellitus withou FASTING. JKW Performed By: #### L IPID, CMP, T4F, CBC, TSH3 ####[facility] [place] [id number] [facility] LDL Cholesterol,Calculated 103 mg/dL High 0-100 [facility] Comment on above: Order Comment: [...] #### L IPID, CMP, T4F, CBC, TSH3 ####[facility] [id number] [place] [address] [facility] Triglyceride w/Reflex 122 mg/dL Normal 0-149 [facility] Comment on above: Order [...] #### L IPID, CMP, T4F, CBC, TSH3 ####[facility] [place] [id number] [facility] VLDL CHOLESTEROL 24 mg/dL Normal [facility] Comment on above: Order Comment: Reaso n for Exam Asthma-COPD overlap syndrome;Type 2 diabetes mellitus withou FASTING. JKW Performed By: #### L IPID, CMP, T4F, CBC, TSH3 ####[place] [address] [place] [id number] [facility] Thyroid Stimulating Hormoneo n 12-12-2022 TSH Qn 2.55730041162 m[IU]/L Normal 0.45-5 .33 u[iU]/mL Cursogram [facility] [employer] Other TSH Qn 2.61 m[IU]/L Normal 0.45-5.[address] [facility] Comment on above: Order Comment: Reaso n for Exam Asthma-COPD overlap syndrome;Type 2 diabetes mellitus withou FASTING. JKW Result Comment: PERF ORMED BY: [facility] [address] [id number] PATHOLOGIST MANAGER LAB SKYLER CLARK M.D. Performed By: #### L IPID, CMP, T4F, CBC, TSH3 ####[place] [address] [place] [id number] [facility] A1C HEMOGLOBINon 06-02-2022 HbA1c (Bld) [Mass fraction] 7.6 % [facility] Other HbA1c (Bld) [Mass fraction]o n 06-02-2022 A1C HEMOGLOBIN Cursogram [facility] [employer] Other CBC AUTO DIFFon 03-18-2022 BASO # 0.0 103/ul Normal 0.0-0.1 [facility] Comment on above: Performed By: #### D RUGRPD #### [facility] [address] [place] [address] [address] Yesenia Ruffin Basophils/100 WBC (Bld) 0.3 % Normal 0.2-2.0 [facility] Comment on above: Performed By: #### D RUGRPD #### [facility] [address] [place] [address] Dr. Yesenia Ruffin EO # 0.2 103/ul Normal 0.0-0.7 [facility] Comment on above: Performed By: #### D RUGRPD #### [facility] [address] [place] [address] Dr. Yesenia Ruffin Eosinophils/100 WBC (Bld) 1.6 % Normal 0.9-7.0 [facility] Comment on above: Performed By: #### D RUGRPD #### [facility] [address] [place] [address] Dr. Yesenia Ruffin Erythrocyte distribution width (RBC) [Ratio] 14.6 % Normal 11.0-15.0 [facility] Comment on above: Performed By: #### D RUGRPD #### [facility] [address] [place] [address] Dr. Yesenia Ruffin Hematocrit (Bld) [Volume fraction] 40.4 % Normal 36.0-48.0 [facility] Comment on above: Performed By: #### D RUGRPD #### [facility] [address] [place] [address] Dr. Yesenia Ruffin Hemoglobin (Bld) [Mass/Vol] 12.7 g/dL Normal 12.0-16.0 [facility] Comment on above: Performed By: #### D RUGRPD #### [facility] [address] [place] [address] Dr. Yesenia Ruffin IG # 0.03 10e3/ul Normal 0.00-0.03 [facility] Comment on above: Performed By: #### D RUGRPD #### [facility] [address] [place] [address] Dr. Yesenia Ruffin IG % 0.3 % Normal 0.0-0.5 [facility] Comment on above: Performed By: #### D RUGRPD #### [facility] [address] [place] [address] [address] Yesenia Ruffin LYMPH # 2.1 103/ul Normal 1.2-3.8 [facility] Comment on above: Performed By: #### D RUGRPD #### [facility] [address] [place] [address] Dr. Yesenia Ruffin Lymphocytes/100 WBC (Bld) 20.0 % Critically low 20.5-60.0 [facility] Comment on above: Performed By: #### D RUGRPD #### [facility] [address] [place] [address] Dr. Yesenia Ruffin MANUAL DIFF REQ NO Normal [facility] Comment on above: Performed By: #### D RUGRPD #### [facility] [address] [place] [address] Dr. Yesenia Ruffin MCH (RBC) [Entitic mass] 26.1 pg Critically low 26.7-34.0 [facility] Comment on above: Performed By: #### D RUGRPD #### [facility] [address] [place] [address] Dr. Yesenia Ruffin MCHC (RBC) [Mass/Vol] 31.4 g/dL Normal 29.9-35.2 [facility] Comment on above: Performed By: #### D RUGRPD #### [facility] [address] [place] [address] Dr. Yesenia Ruffin MCV (RBC) [Entitic vol] 83.0 fL Normal 81.0-99.0 [facility] Comment on above: Performed By: #### D RUGRPD #### [facility] [address] [place] [address] Dr. Yesenia Ruffin MONO # 0.4 103/ul Normal 0.3-0.8 [facility] Comment on above: Performed By: #### D RUGRPD #### [facility] [address] [place] [address] Dr. Yesenia Ruffin Monocytes/100 WBC (Bld) 3.9 % Normal 1.7-12.0 [facility] Comment on above: Performed By: #### D RUGRPD #### [facility] [address] [address] [address] Yesenia Ruffin NEUT # 7.7 103/ul Critically high 1.4-6.5 [facility] Comment on above: Performed By: #### D RUGRPD #### [facility] [address] [address] [address] Yesenia Ruffin Neutrophils/100 WBC (Bld) 73.9 % Normal 43.0-75.0 [facility] Comment on above: Performed By: #### D RUGRPD #### [facility] [address] [address] [address] Yesenia Ruffin Platelet mean volume (Bld) [Entitic vol] 9.5 fL Normal 9.5-13.5 [facility] Comment on above: Performed By: #### D RUGRPD #### [facility] [address] [place] [address] Dr. Yesenia Ruffin PLT 332 103/ul Normal 150-450 [facility] Comment on above: Performed By: #### D RUGRPD #### [facility] [address] [place] [address] Dr. Yesenia Ruffin RBC 4.87 106/ul Normal 4.20-5.40 [facility] Comment on above: Performed By: #### D RUGRPD #### [facility] [address] [place] [address] Dr. Yesenia Ruffin WBC 10.4 103/ul Normal 4.0-11.0 [facility] Comment on above: Performed By: #### D RUGRPD #### [facility] [address] [place] [address] Dr. Yesenia Ruffin [facility] SARS-CoV-2 (COVID-19) RNA NINFA+probe Ql (Unsp spec) Not detected Normal NOT DETECTED [facility] Comment on above: Result Comment: When diagnostic [...] for this test is supported by the [employer] of Health and Human Service's declaration that [...] used). Performed By: #### D RUGRPD #### [facility] [address] [place] [address] Dr. Yesenia Ruffin LIPASEon 03-18-2022 Lipase [Catalytic activity/Vol] 136.0 U/L Normal 73.0-393.0 [facility] Comment on above: Performed By: #### H STROPN, LIPA, CMP #### [facility] [address] [place] [address] Dr. Yesenia Ruffin PROF 14(COMP METB)on 022 Albumin [Mass/Vol] 3.3 g/dL Critically low 3.4-5.0 [facility] Comment on above: Performed By: #### H STROPN, LIPA, CMP #### [facility] [address] [place] [address] Dr. Yesenia Ruffin Albumin/Globulin [Mass ratio] 0.9 {ratio} Normal [facility] Comment on above: Performed By: #### H STROPN, LIPA, CMP #### [facility] [address] [place] [address] Dr. Yesenia Ruffin ALP [Catalytic activity/Vol] 119 U/L Critically high 46-116 [facility] Comment on above: Performed By: #### H STROPN, LIPA, CMP #### [facility] [address] [place] [address] Dr. Yesenia Ruffin ALT [Catalytic activity/Vol] 26 U/L Normal 14-59 [facility] Comment on above: Performed By: #### H STROPN, LIPA, CMP #### [facility] [address] [address] [address] Yesenia Ruffin Anion gap [Moles/Vol] 12.5 mmol/L Normal [facility] Comment on above: Performed By: #### H STROPN, LIPA, CMP #### [facility] [address] [address] [address] Yesenia Ruffin AST [Catalytic activity/Vol] 8 U/L Critically low 15-37 [facility] Comment on above: Performed By: #### H STROPN, LIPA, CMP #### [facility] [address] [address] [address] Yesenia Ruffin Bilirubin [Mass/Vol] 0.2 mg/dL Normal 0.2-1.0 [facility] Comment on above: Performed By: #### H STROPN, LIPA, CMP #### [facility] [address] [place] [address] Dr. Yeesnia Ruffin Calcium [Mass/Vol] 10.0 mg/dL Normal 8.5-10.1 [facility] Comment on above: Performed By: #### H STROPN, LIPA, CMP #### [facility] [address] [place] [address] Dr. Yesenia Ruffin Chloride [Moles/Vol] 98 mmol/L Normal 98-107 [facility] Comment on above: Performed By: #### H STROPN, LIPA, CMP #### [facility] [address] [address] [address] Yesenia Ruffin CO2 [Moles/Vol] 31.0 mmol/L Normal 21.0-32.0 [facility] Comment on above: Performed By: #### H STROPN, LIPA, CMP #### [facility] [address] [address] [address] Yesenia Ruffin Creatinine [Mass/Vol] 0.99 mg/dL Normal 0.55-1.02 [facility] Comment on above: Performed By: #### H STROPN, LIPA, CMP #### [facility] [address] [place] [address] Dr. Yesenia Ruffin EGFR-AF MACANESE >60 Normal >=60 [facility] Comment on above: Performed By: #### H KATIE LIPA, CMP #### [facility] [address] [address] [address] Yesenia Ruffin EGFR-NON AF MACANESE 58 mL/min/1.73m2 Critically low >=60 [facility] Comment on above: Performed By: #### H KATIE, LIPA, CMP #### [facility] [address] [address] [address] Yesenia Ruffin Globulin (S) [Mass/Vol] 3.8 g/dL Normal [facility] Comment on above: Performed By: #### H KATIE LIPA, CMP #### [facility] [address] [address] [address] Yesenia Ruffin Glucose [Mass/Vol] 146 mg/dL Critically high 74-106 [facility] Comment on above: Performed By: #### H KATIE LIPA, CMP #### [facility] [address] [place] [address] Dr. Yesenia Ruffin Potassium [Moles/Vol] 4.5 mmol/L Normal 3.5-5.1 [facility] Comment on above: Performed By: #### H KATIE LIPA, CMP #### [facility] [address] [place] [address] Dr. Yesenia Ruffin Protein [Mass/Vol] 7.1 g/dL Normal 6.4-8.2 [facility] Comment on above: Performed By: #### H SAKINAPN, LIPA, CMP #### [facility] [address] [address] [address] Yesenia Ruffin Sodium [Moles/Vol] 137 mmol/L Normal 136-145 [facility] Comment on above: Performed By: #### H STROPN, LIPA, CMP #### [facility] [address] [place] [address] Dr. Yesenia Ruffin Urea nitrogen [Mass/Vol] 34.0 mg/dL Critically high 7.0-18.0 [facility] Comment on above: Performed By: #### H KATIE LIPA, CMP #### [facility] [address] [place], [place] [address] Dr. Yesenia Ruffin Urea nitrogen/Creatinine [Mass ratio] 34.3 mg/mg Normal [facility] Comment on above: Performed By: #### H STROPN, LIPA, CMP #### [facility] [address] [place], [place] [address] Dr. Yesenia Ruffin TROPONIN, HIGH SENSITIVITYon 03-18-2022 HSTROP 7.7 pg/mL Normal 4.0-51.3 [facility] Comment on above: Result Comment: CUT- OFF POINTS HAVE BEEN ESTABLISHED BASED ON THE FOURTH UNIVERSAL DEFINITIONS OF MYOCARDIAL INFARCTION. THE UPPER REFERENCE LIMIT (URL) OF TROPONIN, DEFINED THE 99TH PERCENTILE OF cTnI DISTRIBUTION IN A REFERENCE POPULATION, HAS BEEN CONFIRMED THE DECISION THRESHOLD FOR PA DIAGNOSIS. Performed By: #### L ACT #### [facility] [address] [address] [address] Yesenia Ruffin HSTROP 7.0 pg/mL Normal 4.0-51.3 [facility] Comment on above: Result Comment: CUT- OFF POINTS HAVE BEEN ESTABLISHED BASED ON THE FOURTH UNIVERSAL DEFINITIONS OF MYOCARDIAL INFARCTION. THE UPPER REFERENCE LIMIT (URL) OF TROPONIN, DEFINED THE 99TH PERCENTILE OF cTnI DISTRIBUTION IN A REFERENCE POPULATION, HAS BEEN CONFIRMED THE DECISION THRESHOLD FOR PA DIAGNOSIS. Performed By: #### H STROPN, LIPA, CMP #### [facility] [id number] Yesenia Ruffin XR CHEST 2 [address] [...] GIFTY WAGNER Date: 2022-03-18 11:57 Normal [facility] Basophils Auto (Bld) [#/Vol] Ordered By: Amish Mills on 02-26-2022 Basophils (Bld) [#/Vol] 0.1 10*3/uL 0.0-0.2 [facility] Basophils/100 WBC Auto (Bld) Ordered By: Amish Mills on 02-26-2022 Basophils/100 WBC (Bld) 0.9 % . [facility] Creatinine and Glomerular fi ltration rate.predicted panel (S/P/Bld)Ordered By: Amish Mills on 02-26-2022 Creatinine [Mass/Vol] 0.99 mg/dL 0.44-1.03 [facility] Eosinophils Auto (Bld) [#/Vo l]Ordered By: Amish Mills on 02-26-2022 Eosinophils (Bld) [#/Vol] 0.0 10*3/uL 0.0-0.45 [facility] Eosinophils/100 WBC Auto (Bl d)Ordered By: Amish Mills on 02-26-2022 Eosinophils/100 WBC (Bld) 0.0 % . [facility] Erythrocyte distribution wid th Auto (RBC) [Ratio]Ordered By: Amish Mills on 02-26-2022 Erythrocyte distribution width (RBC) [Ratio] 15.4 % 11.9-15.3 [facility] Estimated glomerular filtrat ion rate (GFR) non- AmericanOrdered By: Amish Mills on 02-26-2022 GFR/1.73 sq M.predicted among non-blacks MDRD (S/P/Bld) [Vol rate/Area] 58 mL/Min [facility] Glucose Glucometer (BldC) [M ass/Vol]Ordered By: Amish Mills on 02-26-2022 Glucose [Mass/Vol] 339 mg/dL [facility] Comment on above: Random Glucose Refer ence Range is dependent on time and content of last meal. Glucose of more than 200 mg/dL in a nonstressed, ambulatory subject supports the diagnosis of Diabetes Mellitus. Hematocrit Auto (Bld) [Volum e fraction]Ordered By: Amish Mills on 02-26-2022 Hematocrit (Bld) [Volume fraction] 41.6 % 34.0-46.4 [facility] Hemoglobin [Mass/volume] in BloodOrdered By: Amish Mills on 02-26-2022 Hemoglobin (Bld) [Mass/Vol] 13.3 g/dL 11.8-15.4 [facility] Laboratory - Chemistry and C hemistry - challengeOrdered By: Amish Mills on 02-26-2022 Magnesium [Mass/Vol] 2.4 mg/dL 1.6-2.6 [facility] - Hematology and Cell countsOrdered By: Amish Mills on 02-26-2022 Nucleated RBC/100 WBC (Bld) [Ratio] 0.0 % 0-0.5 [facility] Leukocytes [#/volume] in Blo od by Automated countOrdered By: Amish Mills on 02-26-2022 WBC (Bld) [#/Vol] 14.6 10*3/uL 4.5-11.0 [facility] Lymphocytes Auto (Bld) [#/Vo l]Ordered By: Amish Mills on 02-26-2022 Lymphocytes (Bld) [#/Vol] 0.7 10*3/uL 1.00-4.8 [facility] Lymphocytes/100 WBC Auto (Bl d)Ordered By: Amish Mills on 02-26-2022 Lymphocytes/100 WBC (Bld) 4.8 % . [facility] MCH Auto (RBC) [Entitic mass ]Ordered By: Amish Mills on 02-26-2022 MCH (RBC) [Entitic mass] 26.7 pg 24.7-34.3 [facility] MCHC Auto (RBC) [Mass/Vol]Or dered By: Amish Mills on 02-26-2022 MCHC (RBC) [Mass/Vol] 32.0 g/dL 32.0-35.0 [facility] MCV Auto (RBC) [Entitic vol] Ordered By: Amish Mills on 02-26-2022 MCV (RBC) [Entitic vol] 83.5 fL 80-100 [facility] Monocytes Auto (Bld) [#/Vol] Ordered By: Amish Mills on 02-26-2022 Monocytes (Bld) [#/Vol] 0.2 10*3/uL 0.0-0.8 [facility] Monocytes/100 WBC Auto (Bld) Ordered By: Amish Mills on 02-26-2022 Monocytes/100 WBC (Bld) 1.4 % . [facility] Neutrophils Auto (Bld) [#/Vo l]Ordered By: Amish Mills on 02-26-2022 Neutrophils (Bld) [#/Vol] 13.5 10*3/uL 1.8-7.7 [facility] Neutrophils/100 WBC Auto (Bl d)Ordered By: Amish Mills on 02-26-2022 Neutrophils/100 WBC (Bld) 92.9 % . [facility] No Panel InformationOrdered By: Amish Mills on 02-26-2022 Bedside Glucose Comment Glu2: cleaned meter [facility] Estimated GFR () > 60 mL/Min [facility] Comment on above: GFR estimated refere nce range: According to KDOQI guidelines, <60 ml/min/1.73m2 is sufficient to diagnose a patient with chronic kidney disease. Pharmacy Creatinine Clearance (Chem 69.48 [facility] Platelet mean volume Auto (B ld) [Entitic vol]Ordered By: Amish Mills on 02-26-2022 Platelet mean volume (Bld) [Entitic vol] 8.0 fL 6.3-10.7 [facility] Platelets Auto (Bld) [#/Vol] Ordered By: Amish Mills on 02-26-2022 Platelets (Bld) [#/Vol] 372 10*3/uL 150-450 [facility] RBC Auto (Bld) [#/Vol]Ordere d By: Amish Mills on 02-26-2022 RBC (Bld) [#/Vol] 4.98 10*6/uL 3.60-5.00 [facility] Serum or plasma anion gap de terminationOrdered By: Amish Mills on 02-26-2022 Anion gap [Moles/Vol] 13.6 mmol/L 6.0-15.0 [facility] Serum or plasma calcium kimberly urement (mass/volume)Ordered By: Amish Mills on 02-26-2022 Calcium [Mass/Vol] 9.1 mg/dL 8.2-10.2 [facility] Serum or plasma chloride manijt surement (moles/volume)Ordered By: Amish Mills on 02-26-2022 Chloride [Moles/Vol] 102 mmol/L 95-114 [facility] Serum or plasma glucose kimberly urement (mass/volume)Ordered By: Amish Mills on 02-26-2022 Glucose [Mass/Vol] 229 mg/dL 70-100 [facility] Comment on above: ADA recommended refe rence rangeRandom Glucose Reference Range is dependent on time and content of last meal. Glucose of more than 200 mg/dL in a nonstressed, ambulatory subject supports the diagnosis of Diabetes Mellitus. Serum or plasma potassium me asurement (moles/volume)Ordered By: Amish Mills on 02-26-2022 Potassium [Moles/Vol] 5.0 mmol/L 3.5-5.1 [facility] Serum or plasma sodium measu rement (moles/volume)Ordered By: Amish Mills on 02-26-2022 Sodium [Moles/Vol] 136 mmol/L 136-146 [facility] Serum or plasma total carbon dioxide measurement (moles/volume)Ordered By: Amish Mills on 02-26-2022 CO2 [Moles/Vol] 25.4 mmol/L 22.0-30.0 [facility] Serum or plasma urea nitroge n measurement (mass/volume)Ordered By: Amish Mills on 02-26-2022 Urea nitrogen [Mass/Vol] 32 mg/dL 9-23 [facility] Laboratory - Chemistry and C hemistry - challengeOrdered By: Chino Perera on 02-25-2022 Lactate [Moles/Vol] 1.2 mmol/L 0.5-2.2 [facility] - Chemistry and C hemistry - challengeOrdered By: Amish Mills on 02-25-2022 CO2 [Moles/Vol] 26.8 mmol/L 23.0-27.0 [facility] HCO3 (Bld) [Moles/Vol] 25.1 mmol/L 23.0-29.0 [facility] No Panel InformationOrdered By: Amish Mills on 02-25-2022 Bedside Glucose #2 Comment Cleaned meter [facility] Arterial Blood Base Excess -2.2 mmol/L -3.0-3.0 [facility] Arterial Blood Oxygen Content 8.2 mmol/L 6.6-9.7 [facility] Arterial Blood Oxygen Saturation 96.5 % 95.0-100.0 [facility] Arterial Blood Partial Pressure CO2 54.1 mm[Hg] 35.0-45.0 [facility] Arterial Blood Partial Pressure O2 89.7 mm[Hg] 80.0-100.0 [facility] Arterial Blood pH 7.29 7.35-7.45 [facility] Blood Gas Critical Value See comment [facility] Comment on above: Critical Value german d on: 02/25/2022 at 05:01 Blood Gas PEEP 6 cmH2O [facility] Blood Gas Sample Site Right radial F [facility] FiO2 35 % [facility] Blood Gas Pressure Support 6.0 cmH2O [facility] A1C HEMOGLOBINon 02-24-2022 HbA1c (Bld) [Mass fraction] 6.9 % S-cubism Other Basophils Auto (Bld) [#/Vol] Ordered By: Christin Field on 02-24-2022 Basophils (Bld) [#/Vol] 0.1 10*3/uL 0.0-0.2 [facility] Basophils/100 WBC Auto (Bld) Ordered By: Christin Field on 02-24-2022 Basophils/100 WBC (Bld) 1.3 % . [facility] COVID-19 Detected/Not Detect edOrdered By: Salvatore Rasmussen on 02-24-2022 SARS-CoV-2 (COVID-19) RNA NINFA+non-probe Ql (Nph) Not detected Not Detecte [facility] Comment on above: This is a duplicate RP2.1 COVID (PCR) result to be used for statistical tracking purpose only. Creatinine and Glomerular fi ltration rate.predicted panel (S/P/Bld)Ordered By: Christin Field on 02-24-2022 Creatinine [Mass/Vol] 0.97 mg/dL 0.44-1.03 [facility] Eosinophils Auto (Bld) [#/Vo l]Ordered By: Christin Field on 02-24-2022 Eosinophils (Bld) [#/Vol] 0.2 10*3/uL 0.0-0.45 [facility] Eosinophils/100 WBC Auto (Bl d)Ordered By: Christin Field on 02-24-2022 Eosinophils/100 WBC (Bld) 1.6 % . [facility] Erythrocyte distribution wid th Auto (RBC) [Ratio]Ordered By: Christin Field on 02-24-2022 Erythrocyte distribution width (RBC) [Ratio] 14.8 % 11.9-15.3 [facility] Estimated glomerular filtrat ion rate (GFR) non- AmericanOrdered By: Christin Field on 02-24-2022 GFR/1.73 sq M.predicted among non-blacks MDRD (S/P/Bld) [Vol rate/Area] 59 mL/Min [facility] HbA1c (Bld) [Mass fraction]o n 02-24-2022 A1C HEMOGLOBIN [employer] Other Hematocrit Auto (Bld) [Volum e fraction]Ordered By: Christin Field on 02-24-2022 Hematocrit (Bld) [Volume fraction] 39.3 % 34.0-46.4 [facility] Hemoglobin [Mass/volume] in BloodOrdered By: Christin Field on 02-24-2022 Hemoglobin (Bld) [Mass/Vol] 12.7 g/dL 11.8-15.4 [facility] Laboratory - Chemistry and C hemistry - challengeOrdered By: Salvatore Rasmussen on 02-24-2022 CO2 [Moles/Vol] 27.9 mmol/L 23.0-27.0 [facility] HCO3 (Bld) [Moles/Vol] 26.3 mmol/L 23.0-29.0 [facility] - Chemistry and C hemistry - challengeOrdered By: Christin Field on 02-24-2022 Magnesium [Mass/Vol] 1.8 mg/dL 1.6-2.6 [facility] Natriuretic peptide B (Bld) [Mass/Vol] 10.0 pg/mL 5-100 [facility] Laboratory - Hematology and Cell countsOrdered By: Christin Field on 02-24-2022 Nucleated RBC/100 WBC (Bld) [Ratio] 0.1 % 0-0.5 [facility] Leukocytes [#/volume] in Blo od by Automated countOrdered By: Christin Field on 02-24-2022 WBC (Bld) [#/Vol] 10.9 10*3/uL 4.5-11.0 [facility] Lymphocytes Auto (Bld) [#/Vo l]Ordered By: Christin Field on 02-24-2022 Lymphocytes (Bld) [#/Vol] 2.2 10*3/uL 1.00-4.8 [facility] Lymphocytes/100 WBC Auto (Bl d)Ordered By: Christin Field on 02-24-2022 Lymphocytes/100 WBC (Bld) 20.6 % . [facility] MCH Auto (RBC) [Entitic mass ]Ordered By: Christin Field on 02-24-2022 MCH (RBC) [Entitic mass] 26.3 pg 24.7-34.3 [facility] MCHC Auto (RBC) [Mass/Vol]Or dered By: Christin Field on 02-24-2022 MCHC (RBC) [Mass/Vol] 32.3 g/dL 32.0-35.0 [facility] MCV Auto (RBC) [Entitic vol] Ordered By: Christin Field on 02-24-2022 MCV (RBC) [Entitic vol] 81.4 fL 80-100 [facility] Monocytes Auto (Bld) [#/Vol] Ordered By: Christin Field on 02-24-2022 Monocytes (Bld) [#/Vol] 0.6 10*3/uL 0.0-0.8 [facility] Monocytes/100 WBC Auto (Bld) Ordered By: Christin Field on 02-24-2022 Monocytes/100 WBC (Bld) 5.1 % . [facility] Neutrophils Auto (Bld) [#/Vo l]Ordered By: Christin Field on 02-24-2022 Neutrophils (Bld) [#/Vol] 7.8 10*3/uL 1.8-7.7 [facility] Neutrophils/100 WBC Auto (Bl d)Ordered By: Christin Field on 02-24-2022 Neutrophils/100 WBC (Bld) 71.4 % . [facility] No Panel InformationOrdered By: Salvatore Rasmussen on 02-24-2022 Arterial Blood Base Excess -0.7 mmol/L -3.0-3.0 [facility] Arterial Blood Oxygen Content 8.1 mmol/L 6.6-9.7 [facility] Arterial Blood Oxygen Saturation 96.5 % 95.0-100.0 [facility] Arterial Blood Partial Pressure CO2 52.8 mm[Hg] 35.0-45.0 [facility] Arterial Blood Partial Pressure O2 91.1 mm[Hg] 80.0-100.0 [facility] Arterial Blood pH 7.32 7.35-7.45 [facility] Blood Gas Critical Value See comment [facility] Comment on above: Critical Value german d on: 02/24/2022 at 18:59 Blood Gas PEEP 6 cmH2O [facility] Blood Gas Pressure Support 6.0 cmH2O [facility] Blood Gas Sample Site Left radial [facility] FiO2 35 % [facility] Oxygen Delivery Device Bipap [facility] Respiratory Panel (PCR) [facility] No Panel InformationOrdered By: Christin Field on 02-24-2022 Estimated GFR () > 60 mL/Min [facility] Comment on above: GFR estimated refere nce range: According to KDOQI guidelines, <60 ml/min/1.73m2 is sufficient to diagnose a patient with chronic kidney disease. Pharmacy Creatinine Clearance (Chem 70.70 [facility] Platelet mean volume Auto (B ld) [Entitic vol]Ordered By: Christin Field on 02-24-2022 Platelet mean volume (Bld) [Entitic vol] 7.6 fL 6.3-10.7 [facility] Platelets Auto (Bld) [#/Vol] Ordered By: Christin Field on 02-24-2022 Platelets (Bld) [#/Vol] 363 10*3/uL 150-450 [facility] RBC Auto (Bld) [#/Vol]Ordere d By: Christin Field on 02-24-2022 RBC (Bld) [#/Vol] 4.83 10*6/uL 3.60-5.00 [facility] Serum or plasma anion gap de terminationOrdered By: Christin Field on 02-24-2022 Anion gap [Moles/Vol] 15.6 mmol/L 6.0-15.0 [facility] Serum or plasma calcium kimberly urement (mass/volume)Ordered By: Christin Field on 02-24-2022 Calcium [Mass/Vol] 9.6 mg/dL 8.2-10.2 [facility] Serum or plasma chloride manjti surement (moles/volume)Ordered By: Christin Field on 02-24-2022 Chloride [Moles/Vol] 98 mmol/L 95-114 [facility] Serum or plasma glucose kimberly urement (mass/volume)Ordered By: Christin Field on 02-24-2022 Glucose [Mass/Vol] 155 mg/dL 70-100 [facility] Comment on above: ADA recommended refe rence rangeRandom Glucose Reference Range is dependent on time and content of last meal. Glucose of more than 200 mg/dL in a nonstressed, ambulatory subject supports the diagnosis of Diabetes Mellitus. Serum or plasma potassium me asurement (moles/volume)Ordered By: Christin Field on 02-24-2022 Potassium [Moles/Vol] 4.2 mmol/L 3.5-5.1 [facility] Serum or plasma sodium measu rement (moles/volume)Ordered By: Christin Field on 02-24-2022 Sodium [Moles/Vol] 137 mmol/L 136-146 [facility] Serum or plasma total carbon dioxide measurement (moles/volume)Ordered By: Christin Field on 02-24-2022 CO2 [Moles/Vol] 27.6 mmol/L 22.0-30.0 [facility] Serum or plasma urea nitroge n measurement (mass/volume)Ordered By: Christin Field on 02-24-2022 Urea nitrogen [Mass/Vol] 36 mg/dL 01-24 [facility] Troponin I.cardiac [Mass/vol ume] in Serum or Plasma by High sensitivity methodOrdered By: Christin Field on 02-24-2022 Troponin I.cardiac High sensitivity method [Mass/Vol] 5 pg/mL 0 [facility] Albumin [Mass/volume] in Ser um or PlasmaOrdered By: Cristal Bass on 02-06-2022 Albumin [Mass/Vol] 3.6 g/dL 3.2-5.5 [facility] Basophils Auto (Bld) [#/Vol] Ordered By: Cristal Bass on 02-06-2022 Basophils (Bld) [#/Vol] 0.1 10*3/uL 0.0-0.2 [facility] Basophils/100 WBC Auto (Bld) Ordered By: Cristal Bass on 02-06-2022 Basophils/100 WBC (Bld) 1.0 % . [facility] Blood hemoglobin measurement (mass/volume)Ordered By: Cristal Bass on 02-06-2022 Hemoglobin (Bld) [Mass/Vol] 13.4 g/dL 11.8-15.4 [facility] Blood leukocytes automated c ount (number/volume)Ordered By: Cristal Bass on 02-06-2022 WBC (Bld) [#/Vol] 9.0 10*3/uL 4.5-11.0 [facility] COVID CepheidOrdered By: Sophia Bass on 02-06-2022 SARS-CoV-2 (COVID-19) Ab IA Ql Negative Negative [facility] Comment on above: This is a duplicate Cepheid Xpert Xpress CoV-2/Flu/RSV Plus RNA by RT-PCR result to be used for statistical tracking purpose only. SARS-CoV-2 (COVID-19) RNA NINFA+probe Ql (Unsp spec) [facility] Creatinine and Glomerular fi ltration rate.predicted panel (S/P/Bld)Ordered By: Cristal Bass on 02-06-2022 Creatinine [Mass/Vol] 0.98 mg/dL 0.44-1.03 [facility] Eosinophils Auto (Bld) [#/Vo l]Ordered By: Cristal Bass on 02-06-2022 Eosinophils (Bld) [#/Vol] 0.2 10*3/uL 0.0-0.45 [facility] Eosinophils/100 WBC Auto (Bl d)Ordered By: Cristal Bass on 02-06-2022 Eosinophils/100 WBC (Bld) 1.8 % . [facility] Erythrocyte distribution wid th Auto (RBC) [Ratio]Ordered By: Cristal Bass on 02-06-2022 Erythrocyte distribution width (RBC) [Ratio] 14.7 % 11.9-15.3 [facility] Estimated glomerular filtrat ion rate (GFR) non- AmericanOrdered By: Cristal Bass on 02-06-2022 GFR/1.73 sq M.predicted among non-blacks MDRD (S/P/Bld) [Vol rate/Area] 58 mL/Min [facility] Globulin Calc (S) [Mass/Vol] Ordered By: Cristal Bass on 02-06-2022 Globulin (S) [Mass/Vol] 3.2 g/dL [facility] Hematocrit Auto (Bld) [Volum e fraction]Ordered By: Cristal Bass on 02-06-2022 Hematocrit (Bld) [Volume fraction] 42.0 % 34.0-46.4 [facility] Laboratory - Hematology and Cell countsOrdered By: Cristal Bass on 02-06-2022 Nucleated RBC/100 WBC (Bld) [Ratio] 0.1 % 0-0.5 [facility] Laboratory - Microbiology an d Antimicrobial susceptibilityOrdered By: Cristal Bass on 02-06-2022 SARS-CoV-2 (COVID-19) RNA NINFA+probe Ql (Unsp spec) N/A [facility] Lymphocytes Auto (Bld) [#/Vo l]Ordered By: Cristal Bass on 02-06-2022 Lymphocytes (Bld) [#/Vol] 2.4 10*3/uL 1.00-4.8 [facility] Lymphocytes/100 WBC Auto (Bl d)Ordered By: Cristal Bass on 02-06-2022 Lymphocytes/100 WBC (Bld) 26.3 % . [facility] MCH Auto (RBC) [Entitic mass ]Ordered By: Cristal Bass on 02-06-2022 MCH (RBC) [Entitic mass] 26.0 pg 24.7-34.3 [facility] MCHC Auto (RBC) [Mass/Vol]Or dered By: Cristal Bass on 02-06-2022 MCHC (RBC) [Mass/Vol] 31.8 g/dL 32.0-35.0 [facility] MCV Auto (RBC) [Entitic vol] Ordered By: Cristal Bass on 02-06-2022 MCV (RBC) [Entitic vol] 81.7 fL 80-100 [facility] Monocytes Auto (Bld) [#/Vol] Ordered By: Cristal Bass on 02-06-2022 Monocytes (Bld) [#/Vol] 0.4 10*3/uL 0.0-0.8 [facility] Monocytes/100 WBC Auto (Bld) Ordered By: Cristal Bass on 02-06-2022 Monocytes/100 WBC (Bld) 4.6 % . [facility] Neutrophils Auto (Bld) [#/Vo l]Ordered By: Cristal Bass on 02-06-2022 Neutrophils (Bld) [#/Vol] 6.0 10*3/uL 1.8-7.7 [facility] Neutrophils/100 WBC Auto (Bl d)Ordered By: Cristal Bass on 02-06-2022 Neutrophils/100 WBC (Bld) 66.3 % . [facility] No Panel InformationOrdered By: Cristal Bass on 02-06-2022 Estimated GFR () > 60 mL/Min [facility] Comment on above: GFR estimated refere nce range: According to KDOQI guidelines, <60 ml/min/1.73m2 is sufficient to diagnose a patient with chronic kidney disease. Pharmacy Creatinine Clearance (Chem 69.84 [facility] Platelet mean volume Auto (B ld) [Entitic vol]Ordered By: Cristal Bass on 02-06-2022 Platelet mean volume (Bld) [Entitic vol] 8.0 fL 6.3-10.7 [facility] Platelets Auto (Bld) [#/Vol] Ordered By: Cristal Bass on 02-06-2022 Platelets (Bld) [#/Vol] 340 10*3/uL 150-450 [facility] Protein [Mass/volume] in Ser um or PlasmaOrdered By: Cristal Bass on 02-06-2022 Protein [Mass/Vol] 6.8 g/dL 6.1-7.9 [facility] RBC Auto (Bld) [#/Vol]Ordere d By: Cristal Bass on 02-06-2022 RBC (Bld) [#/Vol] 5.14 10*6/uL 3.60-5.00 [facility] Serum or plasma alanine eisenberg otransferase measurement without P-5'-P (enzymatic activiOrdered By: Cristal Bass on 02-06-2022 ALT No additional P-5'-P [Catalytic activity/Vol] 20 U/L 1060 [facility] Serum or plasma albumin/glob ulin mass ratioOrdered By: Cristal Bass on 02-06-2022 Albumin/Globulin [Mass ratio] 1.1 {ratio} [facility] Serum or plasma alkaline nerissa sphatase measurement (enzymatic activity/volume)Ordered By: Cristal Bass on 02-06-2022 ALP [Catalytic activity/Vol] 120 U/L 32-92 [facility] Serum or plasma anion gap de terminationOrdered By: Cristal Bass on 02-06-2022 Anion gap [Moles/Vol] 17.6 mmol/L 6.0-15.0 [facility] Serum or plasma aspartate am inotransferase measurement (enzymatic activity/volume)Ordered By: Cristal Bass on 02-06-2022 AST [Catalytic activity/Vol] 22 U/L 1042 [facility] Serum or plasma calcium kimberly urement (mass/volume)Ordered By: Cristal Bass on 02-06-2022 Calcium [Mass/Vol] 9.4 mg/dL 8.2-10.2 [facility] Serum or plasma chloride manjit surement (moles/volume)Ordered By: Cristal Bass on 02-06-2022 Chloride [Moles/Vol] 100 mmol/L 95-114 [facility] Serum or plasma glucose kimberly urement (mass/volume)Ordered By: Cristal Bass on 02-06-2022 Glucose [Mass/Vol] 100 mg/dL 70-100 [facility] Comment on above: ADA recommended refe rence rangeRandom Glucose Reference Range is dependent on time and content of last meal. Glucose of more than 200 mg/dL in a nonstressed, ambulatory subject supports the diagnosis of Diabetes Mellitus. Serum or plasma potassium me asurement (moles/volume)Ordered By: Cristal Bass on 02-06-2022 Potassium [Moles/Vol] 4.9 mmol/L 3.5-5.1 [facility] Serum or plasma sodium measu rement (moles/volume)Ordered By: Cristal Bass on 02-06-2022 Sodium [Moles/Vol] 138 mmol/L 136-146 [facility] Serum or plasma total biliru bin measurement (mass/volume)Ordered By: Cristal Bass on 02-06-2022 Bilirubin [Mass/Vol] 0.5 mg/dL 0.3-1.2 [facility] Serum or plasma total carbon dioxide measurement (moles/volume)Ordered By: Cristal Bass on 02-06-2022 CO2 [Moles/Vol] 25.3 mmol/L 22.0-30.0 [facility] Serum or plasma urea nitroge n measurement (mass/volume)Ordered By: Cristal Bass on 02-06-2022 Urea nitrogen [Mass/Vol] 35 mg/dL 01-24 [facility] Troponin I.cardiac [Mass/vol ume] in Serum or Plasma by High sensitivity methodOrdered By: Cristal Bass on 02-06-2022 Troponin I.cardiac High sensitivity method [Mass/Vol] 7 pg/mL 0-15 [facility] Basophils Auto (Bld) [#/Vol] Ordered By: Morena Bravo on 12-12-2021 Basophils (Bld) [#/Vol] 0.0 10*3/uL 0.0-0.2 [facility] Basophils/100 WBC Auto (Bld) Ordered By: Morena Bravo on 12-12-2021 Basophils/100 WBC (Bld) 0.6 % . [facility] Blood hemoglobin measurement (mass/volume)Ordered By: Morena Bravo on 12-12-2021 Hemoglobin (Bld) [Mass/Vol] 13.0 g/dL 11.8-15.4 [facility] Blood leukocytes automated c ount (number/volume)Ordered By: Morena Bravo on 12-12-2021 WBC (Bld) [#/Vol] 8.1 10*3/uL 4.5-11.0 [facility] Body fluid albumin measureme nt (mass/volume)Ordered By: Morena Bravo on 12-12-2021 Albumin (Body fld) [Mass/Vol] 3.5 g/dL 3.2-5.5 [facility] Cholesterol [Mass/volume] in Serum or PlasmaOrdered By: Morena Bravo on 12-12-2021 Cholesterol [Mass/Vol] 225 mg/dL 140-200 [facility] Comment on above: Chol less than 200 m g/dl low risk Chol 201-239 mg/dl borderline risk Chol 240 mg/dl and greater high risk Chol less than 200 m g/dl low riskChol 201-239 mg/dl borderline riskChol 240 mg/dl and greater high risk Cholesterol in LDL Calc [Mas s/Vol]Ordered By: Morena Barvo on 12-12-2021 Cholesterol in LDL [Mass/Vol] 125 mg/dL 0-100 [facility] Comment on above: LDL ATP III CLASSIFI [...] 12-12-2021 Cholesterol in VLDL [Mass/Vol] 40 mg/dL [facility] Creatinine and Glomerular fi ltration rate.predicted panel (S/P/Bld)Ordered By: Morena Bravo on 12-12-2021 Creatinine [Mass/Vol] 0.96 mg/dL 0.44-1.03 [facility] Eosinophils Auto (Bld) [#/Vo l]Ordered By: Morena Bravo on 12-12-2021 Eosinophils (Bld) [#/Vol] 0.2 10*3/uL 0.0-0.45 [facility] Eosinophils/100 WBC Auto (Bl d)Ordered By: Morena Bravo on 12-12-2021 Eosinophils/100 WBC (Bld) 2.8 % . [facility] Erythrocyte distribution wid th Auto (RBC) [Ratio]Ordered By: Morena Bravo on 12-12-2021 Erythrocyte distribution width (RBC) [Ratio] 14.1 % 11.9-15.3 [facility] Estimated glomerular filtrat ion rate (GFR) non- AmericanOrdered By: Morena Bravo on 12-12-2021 GFR/1.73 sq M.predicted among non-blacks MDRD (S/P/Bld) [Vol rate/Area] 60 mL/Min [facility] Globulin Calc (S) [Mass/Vol] Ordered By: Morena Bravo on 12-12-2021 Globulin (S) [Mass/Vol] 3.0 g/dL [facility] Hematocrit Auto (Bld) [Volum e fraction]Ordered By: Morena Bravo on 12-12-2021 Hematocrit (Bld) [Volume fraction] 40.4 % 34.0-46.4 [facility] Laboratory - Hematology and Cell countsOrdered By: Morena Bravo on 12-12-2021 Nucleated RBC/100 WBC (Bld) [Ratio] 0.1 % 0-0.5 [facility] Lymphocytes Auto (Bld) [#/Vo l]Ordered By: Morena Bravo on 12-12-2021 Lymphocytes (Bld) [#/Vol] 2.0 10*3/uL 1.00-4.8 [facility] Lymphocytes/100 WBC Auto (Bl d)Ordered By: Morena Bravo on 12-12-2021 Lymphocytes/100 WBC (Bld) 24.6 % . [facility] MCH Auto (RBC) [Entitic mass ]Ordered By: Morena Bravo on 12-12-2021 MCH (RBC) [Entitic mass] 26.5 pg 24.7-34.3 [facility] MCHC Auto (RBC) [Mass/Vol]Or dered By: Morena Bravo on 12-12-2021 MCHC (RBC) [Mass/Vol] 32.3 g/dL 32.0-35.0 [facility] MCV Auto (RBC) [Entitic vol] Ordered By: Morena Bravo on 12-12-2021 MCV (RBC) [Entitic vol] 82.0 fL 80-100 [facility] Monocytes Auto (Bld) [#/Vol] Ordered By: Morena Bravo on 12-12-2021 Monocytes (Bld) [#/Vol] 0.4 10*3/uL 0.0-0.8 [facility] Monocytes/100 WBC Auto (Bld) Ordered By: Morena Bravo on 12-12-2021 Monocytes/100 WBC (Bld) 4.5 % . [facility] Neutrophils Auto (Bld) [#/Vo l]Ordered By: Morena Bravo on 12-12-2021 Neutrophils (Bld) [#/Vol] 5.5 10*3/uL 1.8-7.7 [facility] Neutrophils/100 WBC Auto (Bl d)Ordered By: Morena Bravo on 12-12-2021 Neutrophils/100 WBC (Bld) 67.5 % . [facility] No Panel InformationOrdered By: Morena Bravo on 12-12-2021 Estimated GFR () > 60 mL/Min [facility] Comment on above: GFR estimated refere nce range: According to KDOQI guidelines, <60 ml/min/1.73m2 is sufficient to diagnose a patient with chronic kidney disease. Pharmacy Creatinine Clearance (Chem N/A [facility] Platelet mean volume Auto (B ld) [Entitic vol]Ordered By: Morena Bravo on 12-12-2021 Platelet mean volume (Bld) [Entitic vol] 7.9 fL 6.3-10.7 [facility] Platelets Auto (Bld) [#/Vol] Ordered By: Morena Bravo on 12-12-2021 Platelets (Bld) [#/Vol] 332 10*3/uL 150-450 [facility] Protein [Mass/volume] in Ser um or PlasmaOrdered By: Morena Bravo on 12-12-2021 Protein [Mass/Vol] 6.5 g/dL 6.1-7.9 [facility] RBC Auto (Bld) [#/Vol]Ordere d By: Morena Bravo on 12-12-2021 RBC (Bld) [#/Vol] 4.93 10*6/uL 3.60-5.00 [facility] Serum or plasma alanine eisenberg otransferase measurement without P-5'-P (enzymatic activiOrdered By: Mornea Bravo on 12-12-2021 ALT No additional P-5'-P [Catalytic activity/Vol] 21 U/L 10-60 [facility] Serum or plasma albumin/glob ulin mass ratioOrdered By: Morena Bravo on 12-12-2021 Albumin/Globulin [Mass ratio] 1.2 {ratio} [facility] Serum or plasma alkaline nerissa sphatase measurement (enzymatic activity/volume)Ordered By: Morena Bravo on 12-12-2021 ALP [Catalytic activity/Vol] 120 U/L 32-92 [facility] Serum or plasma aspartate am inotransferase measurement (enzymatic activity/volume)Ordered By: Morena Bravo on 12-12-2021 AST [Catalytic activity/Vol] 18 U/L 10-42 [facility] Serum or plasma calcium kimberly urement (mass/volume)Ordered By: Morena Bravo on 12-12-2021 Calcium [Mass/Vol] 10.0 mg/dL 8.2-10.2 [facility] Serum or plasma chloride manjit surement (moles/volume)Ordered By: Morena Bravo on 12-12-2021 Chloride [Moles/Vol] 98 mmol/L 95-114 [facility] Serum or plasma glucose kmiberly urement (mass/volume)Ordered By: Morena Bravo on 12-12-2021 Glucose [Mass/Vol] 97 mg/dL 70-100 [facility] Comment on above: ADA recommended refe rence [...] Cholesterol in HDL [Mass/Vol] 59 mg/dL 35-85 [facility] Comment on above: HDL CHOL ATP-III CLA SSIFICATION Cardiovascular Risk HDL > or equal to 60 mg/dL LOW HDL < 40 mg/dL HIGH HDL CHOL ATP-III CLA SSIFICATION Cardiovascular RiskHDL > or equal to 60 mg/dL LOWHDL < 40 mg/dL HIGH Serum or plasma potassium me asurement (moles/volume)Ordered By: Morena Bravo on 12-12-2021 Potassium [Moles/Vol] 5.1 mmol/L 3.5-5.1 [facility] Serum or plasma sodium measu rement (moles/volume)Ordered By: Morena Bravo on 12-12-2021 Sodium [Moles/Vol] 135 mmol/L 136-146 [facility] Serum or plasma total biliru bin measurement (mass/volume)Ordered By: Morena Bravo on 12-12-2021 Bilirubin [Mass/Vol] 0.3 mg/dL 0.3-1.2 [facility] Serum or plasma total carbon dioxide measurement (moles/volume)Ordered By: Morena Bravo on 12-12-2021 CO2 [Moles/Vol] 26.3 mmol/L 22.0-30.0 [facility] Serum or plasma total choles terol/high density lipoprotein (HDL) cholesterol mass ratOrdered By: Morena Bravo on 12-12-2021 Cholesterol.total/Chol esterol in HDL [Mass ratio] 3.8 {ratio} <5.0 [facility] Serum or plasma urea nitroge n measurement (mass/volume)Ordered By: Morena Bravo on 12-12-2021 Urea nitrogen [Mass/Vol] 32 mg/dL 9- [facility] TSH DL <= 0.005 mIU/L QnOrde red By: Morena Bravo on 12-12-2021 TSH Qn 2.66 m[IU]/L 0.45-5.33 [facility] Thyroxine (T4) free [Mass/vo lume] in Serum or PlasmaOrdered By: Morena Bravo on 12-12-2021 Free T4 [Mass/Vol] 0.78 ng/dL 0.61-1.12 [facility] Triglyceride [Mass/volume] i n Serum or PlasmaOrdered By: Morena Bravo on 12-12-2021 Triglyceride [Mass/Vol] 203 mg/dL 35-149 [facility] Comment on above: TRIG ATP III CLASSIF [...] 11-22-2021 HbA1c (Bld) [Mass fraction] 6.3 % [facility] Other HbA1c (Bld) [Mass fraction]o n 11-22-2021 A1C HEMOGLOBIN [employer] Other A1C HEMOGLOBINon 07-29-2021 HbA1c (Bld) [Mass fraction] 6.9 % [employer] Other HbA1c (Bld) [Mass fraction]o n 07-29-2021 A1C HEMOGLOBIN [employer] Other CBC AUTO DIFFon 06-11-2021 BASO # 0.0 103/ul Normal 0.0-0.1 [facility] Comment on above: Performed By: #### C BC #### [facility] [address] [place] [address] Dr. Yesenia Ruffin Basophils/100 WBC (Bld) 0.4 % Normal 0.2-2.0 [facility] Comment on above: Performed By: #### C BC #### [facility] [address] [place] [address] Dr. Yesenia Ruffin EO # 0.0 103/ul Normal 0.0-0.7 [facility] Comment on above: Performed By: #### C BC #### [facility] [address] [place] [address] Dr. Yesenia Ruffin Eosinophils/100 WBC (Bld) 0.4 % Critically low 0.9-7.0 [facility] Comment on above: Performed By: #### C BC #### [facility] [address] [place] [address] Dr. Yesenia Ruffin Erythrocyte distribution width (RBC) [Ratio] 12.8 % Normal 11.0-15.0 [facility] Comment on above: Performed By: #### C BC #### [facility] [address] [place] [address] Dr. Yesenia Ruffin Hematocrit (Bld) [Volume fraction] 36.9 % Normal 36.0-48.0 [facility] Comment on above: Performed By: #### C BC #### [facility] [address] [place] [address] Dr. Yesenia Ruffin Hemoglobin (Bld) [Mass/Vol] 11.6 g/dL Critically low 12.0-16.0 [facility] Comment on above: Performed By: #### C BC #### [facility] [address] [place] [address] Dr. Yesenia Ruffin IG # 0.06 10e3/ul Critically high 0.00-0.03 [facility] Comment on above: Performed By: #### C BC #### [facility] [address] [place] [address] Dr. Yesenia Ruffin IG % 0.6 % Critically high 0.0-0.5 [facility] Comment on above: Performed By: #### C BC #### [facility] [address] [place] [address] Dr. Yesenia Ruffin LYMPH # 2.5 103/ul Normal 1.2-3.8 [facility] Comment on above: Performed By: #### C BC #### [facility] [address] [place] [address] Dr. Yesenia Ruffin Lymphocytes/100 WBC (Bld) 23.1 % Normal 20.5-60.0 [facility] Comment on above: Performed By: #### C BC #### [facility] [address] [place] [address] Dr. Yesenia Ruffin MANUAL DIFF REQ NO Normal [facility] Comment on above: Performed By: #### C BC #### [facility] [address] [place] [address] Dr. Yesenia Ruffin MCH (RBC) [Entitic mass] 27.2 pg Normal 26.7-34.0 [facility] Comment on above: Performed By: #### C BC #### [facility] [address] [place] [address] Dr. Yesenia Ruffin MCHC (RBC) [Mass/Vol] 31.4 g/dL Normal 29.9-35.2 [facility] Comment on above: Performed By: #### C BC #### [facility] [address] [place] [address] Dr. Yesenia Ruffin MCV (RBC) [Entitic vol] 86.4 fL Normal 81.0-99.0 [facility] Comment on above: Performed By: #### C BC #### [facility] [address] [address] [address] Yesenia Ruffin MONO # 0.5 103/ul Normal 0.3-0.8 [facility] Comment on above: Performed By: #### C BC #### [facility] [address] [address] [address] Yesenia Ruffin Monocytes/100 WBC (Bld) 5.0 % Normal 1.7-12.0 [facility] Comment on above: Performed By: #### C BC #### [facility] [address] [place] [address] Dr. Yesenia Ruffin NEUT # 7.7 103/ul Critically high 1.4-6.5 [facility] Comment on above: Performed By: #### C BC #### [facility] [address] [place] [address] Dr. Yesenia Ruffin Neutrophils/100 WBC (Bld) 70.5 % Normal 43.0-75.0 [facility] Comment on above: Performed By: #### C BC #### [facility] [address] [place] [address] Dr. Yesenia Ruffin Platelet mean volume (Bld) [Entitic vol] 9.2 fL Critically low 9.5-13.5 [facility] Comment on above: Performed By: #### C BC #### [facility] [address] [place] [address] Dr. Yesenia Ruffin PLT 322 103/ul Normal 150-450 [facility] Comment on above: Performed By: #### C BC #### [facility] [address] [place] [address] Dr. Yesenia Ruffin RBC 4.27 106/ul Normal 4.20-5.40 [facility] Comment on above: Performed By: #### C BC #### [facility] [address] [place] [address] Dr. Yesenia Ruffin WBC 10.9 103/ul Normal 4.0-11.0 [facility] Comment on above: Performed By: #### C BC #### [facility] [address] [place] [address] Dr. Yesenia Ruffin POINT OF CARE GLUCOSEon Glucose [Mass/Vol] 132 mg/dL Critically high 74-106 [facility] Comment on above: Performed By: #### L ACT #### [facility] [address] [place] [address] Dr. Yesenia Ruffin PROF CHEM 8 (BAS METB)on Anion gap [Moles/Vol] 10.5 mmol/L Normal [facility] Comment on above: Performed By: #### D RUGRPD #### [facility] [address] [place] [address] Dr. Yesenia Ruffin Calcium [Mass/Vol] 8.7 mg/dL Normal 8.4-10.2 [facility] Comment on above: Performed By: #### D RUGRPD #### [facility] [address] [place] [address] Dr. Yesenia Ruffin Chloride [Moles/Vol] 104 mmol/L Normal 98-107 [facility] Comment on above: Performed By: #### D RUGRPD #### [facility] [address] [place] [address] Dr. Yesenia Ruffin CO2 [Moles/Vol] 30.6 mmol/L Critically high 22.0-30.0 [facility] Comment on above: Performed By: #### D RUGRPD #### [facility] [address] [place] [address] Dr. Yeseina Ruffin Creatinine [Mass/Vol] 1.00 mg/dL Normal 0.52-1.04 [facility] Comment on above: Performed By: #### D RUGRPD #### [facility] [address] [place] [address] Dr. Yesenia Ruffin EGFR-AF MACANESE >60 Normal >=60 [facility] Comment on above: Performed By: #### D RUGRPD #### [facility] [address] [place] [address] Dr. Yesenia Ruffin EGFR-NON AF MACANESE 57 mL/min/1.73m2 Critically low >=60 [facility] Comment on above: Performed By: #### D RUGRPD #### [facility] [address] [place] [address] Dr. Yesenia Ruffin Glucose [Mass/Vol] 120 mg/dL Critically high 74-106 [facility] Comment on above: Performed By: #### D RUGRPD #### [facility] [address] [place] [address] Dr. Yesenia Ruffin Potassium [Moles/Vol] 3.1 mmol/L Critically low 3.4-5.0 [facility] Comment on above: Performed By: #### D RUGRPD #### [facility] [address] [place] [address] Dr. Yesenia Ruffin Sodium [Moles/Vol] 142 mmol/L Normal 137-145 [facility] Comment on above: Performed By: #### D RUGRPD #### [facility] [address] [place] [address] Dr. Yesenia Ruffin Urea nitrogen [Mass/Vol] 17.0 mg/dL Normal 7.0-17.0 [facility] Comment on above: Performed By: #### D RUGRPD #### [facility] [address] [place] [address] Dr. Yesenia Ruffin Urea nitrogen/Creatinine [Mass ratio] 17.0 mg/mg Normal [facility] Comment on above: Performed By: #### D RUGRPD #### [facility] [address] [place] [address] Dr. Yesenia Ruffin CBC AUTO DIFFon 06-10-2021 BASO # 0.0 103/ul Normal 0.0-0.1 [facility] Comment on above: Performed By: #### D RUGRPD #### [facility] [address] [place] [address] Dr. Yesenia Ruffin Basophils/100 WBC (Bld) 0.4 % Normal 0.2-2.0 [facility] Comment on above: Performed By: #### D RUGRPD #### [facility] [address] [place] [address] Dr. Yesenia Ruffin EO # 0.0 103/ul Normal 0.0-0.7 [facility] Comment on above: Performed By: #### D RUGRPD #### [facility] [address] [place] [address] Dr. Yesenia Ruffin Eosinophils/100 WBC (Bld) 0.2 % Critically low 0.9-7.0 [facility] Comment on above: Performed By: #### D RUGRPD #### [facility] [address] [place] [address] Dr. Yesenia Ruffin Erythrocyte distribution width (RBC) [Ratio] 12.8 % Normal 11.0-15.0 [facility] Comment on above: Performed By: #### D RUGRPD #### [facility] [address] [place] [address] Dr. Yesenia Ruffin Hematocrit (Bld) [Volume fraction] 36.4 % Normal 36.0-48.0 [facility] Comment on above: Performed By: #### D RUGRPD #### [facility] [address] [place] [address] Dr. Yesenia Ruffin Hemoglobin (Bld) [Mass/Vol] 11.6 g/dL Critically low 12.0-16.0 [facility] Comment on above: Performed By: #### D RUGRPD #### [facility] [address] [place] [address] Dr. Yesenia Ruffin IG # 0.02 10e3/ul Normal 0.00-0.03 [facility] Comment on above: Performed By: #### D RUGRPD #### [facility] [address] [place] [address] Dr. Yesenia Ruffin IG % 0.2 % Normal 0.0-0.5 [facility] Comment on above: Performed By: #### D RUGRPD #### [facility] [address] [place] [address] Dr. Yesenia Ruffin LYMPH # 1.7 103/ul Normal 1.2-3.8 [facility] Comment on above: Performed By: #### D RUGRPD #### [facility] [address] [address] [address] Yesenia Ruffin Lymphocytes/100 WBC (Bld) 16.3 % Critically low 20.5-60.0 [facility] Comment on above: Performed By: #### D RUGRPD #### [facility] [address] [place] [address] Dr. Yesenia Ruffin MANUAL DIFF REQ NO Normal [facility] Comment on above: Performed By: #### D RUGRPD #### [facility] [address] [place] [address] Dr. Yesenia Ruffin MCH (RBC) [Entitic mass] 27.5 pg Normal 26.7-34.0 [facility] Comment on above: Performed By: #### D RUGRPD #### [facility] [address] [place] [address] Dr. Yesenia Ruffin MCHC (RBC) [Mass/Vol] 31.9 g/dL Normal 29.9-35.2 [facility] Comment on above: Performed By: #### D RUGRPD #### [facility] [address] [place] [address] Dr. Yesenia Ruffin MCV (RBC) [Entitic vol] 86.3 fL Normal 81.0-99.0 [facility] Comment on above: Performed By: #### D RUGRPD #### [facility] [address] [place] [address] Dr. Yesenia Ruffin MONO # 0.5 103/ul Normal 0.3-0.8 [facility] Comment on above: Performed By: #### D RUGRPD #### [facility] [address] [place] [address] Dr. Yesenia Ruffin Monocytes/100 WBC (Bld) 5.1 % Normal 1.7-12.0 [facility] Comment on above: Performed By: #### D RUGRPD #### [facility] [address] [place] [address] Dr. Yesenia Ruffin NEUT # 8.2 103/ul Critically high 1.4-6.5 [facility] Comment on above: Performed By: #### D RUGRPD #### [facility] [address] [address] [address] Yesenia Ruffin Neutrophils/100 WBC (Bld) 77.8 % Critically high 43.0-75.0 [facility] Comment on above: Performed By: #### D RUGRPD #### [facility] [address] [address] [address] Yesenia Ruffin Platelet mean volume (Bld) [Entitic vol] 9.0 fL Critically low 9.5-13.5 [facility] Comment on above: Performed By: #### D RUGRPD #### [facility] [address] [place] [address] Dr. Yesenia Ruffin PLT 328 103/ul Normal 150-450 [facility] Comment on above: Performed By: #### D RUGRPD #### [facility] [address] [place] [address] Dr. Yesenia Ruffin RBC 4.22 106/ul Normal 4.20-5.40 [facility] Comment on above: Performed By: #### D RUGRPD #### [facility] [address] [place] [address] Dr. Yesenia Ruffin WBC 10.6 103/ul Normal 4.0-11.0 [facility] Comment on above: Performed By: #### D RUGRPD #### [facility] [address] [place] [address] Dr. Yesenia Ruffin DRUG SCREEN RAPID (URINE)on 06-10-2021 AMP Negative Normal NEGATIVE [facility] Comment on above: Performed By: #### D RUGRPD #### [facility] [address] [place] [address] Dr. Yesenia Ruffin BAR Negative Normal NEGATIVE [facility] Comment on above: Performed By: #### D RUGRPD #### [facility] [address] [place] [address] Dr. Yesenia Ruffin BUP Negative Normal NEGATIVE [facility] Comment on above: Performed By: #### D RUGRPD #### [facility] [address] [place] [address] Dr. Yesenia Ruffin BZO Negative Normal NEGATIVE [facility] Comment on above: Performed By: #### D RUGRPD #### [facility] [address] [address] [address] Yesenia Ruffin ROSE MARIE Negative Normal NEGATIVE [facility] Comment on above: Performed By: #### D RUGRPD #### [facility] [address] [place] [address] Dr. Yesenia Ruffin CUT-OFFS SEE BELOW Normal [facility] Comment on above: Result Comment: AMP (Amphetamine): [...] ng/mL Performed By: #### D RUGRPD #### [facility] [address] [place] [address] Dr. Yesenia Ruffin DRUG CUT HEADER DRUG CLASS TEST SYST EM CUT-OFF CONCENTRATIONS ARE FOLLOWS: Normal [facility] Comment on above: Performed By: #### D RUGRPD #### [facility] [address] [place] [address] Dr. Yesenia Ruffin mAMP Negative Normal NEGATIVE [facility] Comment on above: Performed By: #### D RUGRPD #### [facility] [address] [place] [address] Dr. Yesenia Ruffin MTD Negative Normal NEGATIVE [facility] Comment on above: Performed By: #### D RUGRPD #### [facility] [address] [place] [address] Dr. Yesenia Ruffin OPI Positive Abnormal NEGATIVE [facility] Comment on above: Performed By: #### D RUGRPD #### [facility] [address] [place] [address] Dr. Yesenia Ruffin OXY Negative Normal NEGATIVE [facility] Comment on above: Performed By: #### D RUGRPD #### [facility] [address] [place] [address] Dr. Yesenia Ruffin PCP Negative Normal NEGATIVE [facility] Comment on above: Performed By: #### D RUGRPD #### [facility] [address] [place] [address] Dr. Yesenia Ruffin PPX Negative Normal NEGATIVE [facility] Comment on above: Performed By: #### D RUGRPD #### [facility] [address] [address] [address] Yesenia Ruffin TCA Negative Normal NEGATIVE [facility] Comment on above: Performed By: #### D RUGRPD #### [facility] [address] [place] [address] Dr. Yesenia Ruffin THC Negative Normal NEGATIVE [facility] Comment on above: Performed By: #### D RUGRPD #### [facility] [address] [place] [address] Dr. Yesenia Ruffin GLYCOHEMOGLOBIN A1Con 2021 ADA RECOMMENDATION ADA THERAPEUTIC TARG ET 6.0 - 7.0 ACTION SUGGESTED > 7.0 Normal [facility] Comment on above: Performed By: #### L ACT #### [facility] [address] [place] [address] Dr. Yesenia Ruffin Glucose [Mass/Vol] 151 mg/dL Normal [facility] Comment on above: Performed By: #### L ACT #### [facility] [address] [place] [address] Dr. Yesenia Ruffin HbA1c (Bld) [Mass fraction] 6.9 % Critically high <=6.0 [facility] Comment on above: Performed By: #### L ACT #### [facility] [address] [place] [address] Dr. Yesenia Ruffin POINT OF CARE GLUCOSEon Glucose [Mass/Vol] 97 mg/dL Normal 74-106 [facility] Comment on above: Performed By: #### P OCGLUC #### [facility] [address] [address] [address] Yesenia Ruffin Glucose [Mass/Vol] 142 mg/dL Critically high 74-106 [facility] Comment on above: Performed By: #### D RUGRPD #### [facility] [address] [place] [address] Dr. Yesenia Ruffin Glucose [Mass/Vol] 127 mg/dL Critically high 74-106 [facility] Comment on above: Performed By: #### D RUGRPD #### [facility] [address] [address] [address] Yesenia Ruffin Glucose [Mass/Vol] 155 mg/dL Critically high 74-106 [facility] Comment on above: Performed By: #### P OCGLUC #### [facility] [address] [place] [address] Dr. Yesenia Ruffin PROF CHEM 8 (BAS METB)on Anion gap [Moles/Vol] 9.6 mmol/L Normal [facility] Comment on above: Performed By: #### D RUGRPD #### [facility] [address] [place] [address] Dr. Yesenia Ruffin Calcium [Mass/Vol] 8.9 mg/dL Normal 8.4-10.2 [facility] Comment on above: Performed By: #### D RUGRPD #### [facility] [address] [place] [address] Dr. Yesenia Ruffin Chloride [Moles/Vol] 101 mmol/L Normal 98-107 [facility] Comment on above: Performed By: #### D RUGRPD #### [facility] [address] [place] [address] Dr. Yesenia Ruffin CO2 [Moles/Vol] 30.9 mmol/L Critically high 22.0-30.0 [facility] Comment on above: Performed By: #### D RUGRPD #### [facility] [address] [place] [address] Dr. Yesenia Ruffin Creatinine [Mass/Vol] 1.04 mg/dL Normal 0.52-1.04 [facility] Comment on above: Performed By: #### D RUGRPD #### [facility] [address] [address] [address] Yesenia Ruffin EGFR-AF MACANESE >60 Normal >=60 [facility] Comment on above: Performed By: #### D RUGRPD #### [facility] [address] [address] [address] Yesenia Ruffin EGFR-NON AF MACANESE 55 mL/min/1.73m2 Critically low >=60 [facility] Comment on above: Performed By: #### D RUGRPD #### [facility] [address] [address] [address] Yesenia Ruffin Glucose [Mass/Vol] 133 mg/dL Critically high 74-106 [facility] Comment on above: Performed By: #### D RUGRPD #### [facility] [address] [address] [address] Yesenia Ruffin Potassium [Moles/Vol] 3.5 mmol/L Normal 3.4-5.0 [facility] Comment on above: Performed By: #### D RUGRPD #### [facility] [address] [address] [address] Yesenia Ruffin Sodium [Moles/Vol] 138 mmol/L Normal 137-145 [facility] Comment on above: Performed By: #### D RUGRPD #### [facility] [address] [address] [address] Yesenia Ruffin Urea nitrogen [Mass/Vol] 27.0 mg/dL Critically high 7.0-17.0 [facility] Comment on above: Performed By: #### D RUGRPD #### [facility] [address] [address] [address] Yesenia Ruffin Urea nitrogen/Creatinine [Mass ratio] 26.0 mg/mg Normal [facility] Comment on above: Performed By: #### D RUGRPD #### [facility] [address] [address] [address] Yesenia Ruffin US SINGLE QUAD RT [...] by: KELSIE MAR Date: 2021-06-10 12:32 Normal [facility] AMYLASEon 06-09-2021 Amylase [Catalytic activity/Vol] 38 U/L Normal 31-110 [facility] Comment on above: Performed By: #### L ACT #### [facility] [address] [place], [place] [address] Dr. Yesenia Ruffin CBC AUTO DIFFon 06-09-2021 BASO # 0.0 103/ul Normal 0.0-0.1 [facility] Comment on above: Performed By: #### C BC #### [facility] [address] [place], [place] [address] Dr. Yesenia Ruffin Basophils/100 WBC (Bld) 0.3 % Normal 0.2-2.0 [facility] Comment on above: Performed By: #### C BC #### [facility] [address] [place] [address] Dr. Yesenia Ruffin EO # 0.0 103/ul Normal 0.0-0.7 [facility] Comment on above: Performed By: #### C BC #### [facility] [address] [place] [address] Dr. Yesenia Ruffin Eosinophils/100 WBC (Bld) 0.2 % Critically low 0.9-7.0 [facility] Comment on above: Performed By: #### C BC #### [facility] [address] [place] [address] Dr. Yesenia Ruffin Erythrocyte distribution width (RBC) [Ratio] 12.7 % Normal 11.0-15.0 [facility] Comment on above: Performed By: #### C BC #### [facility] [address] [place] [address] Dr. Yesenia Ruffin Hematocrit (Bld) [Volume fraction] 39.9 % Normal 36.0-48.0 [facility] Comment on above: Performed By: #### C BC #### [facility] [address] [place] [address] Dr. Yesenia Ruffin Hemoglobin (Bld) [Mass/Vol] 13.1 g/dL Normal 12.0-16.0 [facility] Comment on above: Performed By: #### C BC #### [facility] [address] [place] [address] Dr. Yesenia Ruffin IG # 0.05 10e3/ul Critically high 0.00-0.03 [facility] Comment on above: Performed By: #### C BC #### [facility] [address] [place] [address] Dr. Yesenia Ruffin IG % 0.4 % Normal 0.0-0.5 [facility] Comment on above: Performed By: #### C BC #### [facility] [address] [place] [address] Dr. Yesenia Ruffin LYMPH # 1.9 103/ul Normal 1.2-3.8 [facility] Comment on above: Performed By: #### C BC #### [facility] [address] [place] [address] Dr. Yesenia Ruffin Lymphocytes/100 WBC (Bld) 14.7 % Critically low 20.5-60.0 [facility] Comment on above: Performed By: #### C BC #### [facility] [address] [place] [address] Dr. Yesenia Ruffin MANUAL DIFF REQ NO Normal [facility] Comment on above: Performed By: #### C BC #### [facility] [address] [place] [address] Dr. Yesenia Ruffin MCH (RBC) [Entitic mass] 27.6 pg Normal 26.7-34.0 [facility] Comment on above: Performed By: #### C BC #### [facility] [address] [place] [address] Dr. Yesenia Ruffin MCHC (RBC) [Mass/Vol] 32.8 g/dL Normal 29.9-35.2 [facility] Comment on above: Performed By: #### C BC #### [facility] [address] [place] [address] Dr. Yesenia Ruffin MCV (RBC) [Entitic vol] 84.0 fL Normal 81.0-99.0 [facility] Comment on above: Performed By: #### C BC #### [facility] [address] [place] [address] Dr. Yesenia Ruffin MONO # 0.7 103/ul Normal 0.3-0.8 [facility] Comment on above: Performed By: #### C BC #### [facility] [address] [place] [address] Dr. Yesenia Ruffin Monocytes/100 WBC (Bld) 5.1 % Normal 1.7-12.0 [facility] Comment on above: Performed By: #### C BC #### [facility] [address] [place] [address] Dr. Yesenia Ruffin NEUT # 10.4 103/ul Critically high 1.4-6.5 [facility] Comment on above: Performed By: #### C BC #### [facility] [address] [address] [address] Yesenia Ruffin Neutrophils/100 WBC (Bld) 79.3 % Critically high 43.0-75.0 [facility] Comment on above: Performed By: #### C BC #### [facility] [address] [address] [address] Yesenia Ruffin Platelet mean volume (Bld) [Entitic vol] 9.0 fL Critically low 9.5-13.5 [facility] Comment on above: Performed By: #### C BC #### [facility] [address] [address] [address] Yesenia Ruffin PLT 380 103/ul Normal 150-450 [facility] Comment on above: Performed By: #### C BC #### [facility] [address] [place] [address] Dr. Yesenia Ruffin RBC 4.75 106/ul Normal 4.20-5.40 [facility] Comment on above: Performed By: #### C BC #### [facility] [address] [place] [address] Dr. Yesenia Ruffin WBC 13.1 103/ul Critically high 4.0-11.0 [facility] Comment on above: Performed By: #### C BC #### [facility] [address] [place] [address] ABD/PELV W CONon [...] and/or use of iterative reconstruction technique. 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 Performed By: #### L ACT #### [facility] [address] [place] [address] Dr. Yesenia Ruffin ER URINE PROFILEon 2 Bilirubin Ql (U) Negative Normal NEGATIVE [facility] Comment on above: Performed By: #### L ACT #### [facility] [address] [place] [address] Dr. Yesenia Ruffin Clarity (U) CLEAR Normal CLEAR [facility] Comment on above: Performed By: #### L ACT #### [facility] [address] [place] [address] Dr. Yesenia Ruffin Color (U) LT. YELLOW Normal YELLOW [facility] Comment on above: Performed By: #### L ACT #### [facility] [address] [place] [address] Dr. Yesenia Ruffin ERUAHD A micrscopic examina tion will be performed if indicated. Normal [facility] Comment on above: Performed By: #### L ACT #### [facility] [address] [place] [address] Dr. Yesenia Ruffin Glucose Ql (U) Negative Normal NEGATIVE [facility] Comment on above: Performed By: #### L ACT #### [facility] [address] [place] [address] Dr. Yesenia Ruffin Hemoglobin Ql (U) Negative Normal NEGATIVE [facility] Comment on above: Performed By: #### L ACT #### [facility] [address] [place] [address] Dr. Yesenia Ruffin Ketones Ql (U) Negative Normal NEGATIVE [facility] Comment on above: Performed By: #### L ACT #### [facility] [address] [place] [address] Dr. Yesenia Ruffin LEUKOCYTES Negative Normal NEGATIVE [facility] Comment on above: Performed By: #### L ACT #### [facility] [address] [place] [address] Dr. Yesenia Ruffin Nitrite Ql (U) Negative Normal NEGATIVE [facility] Comment on above: Performed By: #### L ACT #### [facility] [address] [place] [address] Dr. Yesenia Ruffin pH (U) 6.5 [pH] Normal 5-9 [facility] Comment on above: Performed By: #### L ACT #### [facility] [address] [place] [address] Dr. Yesenia Ruffin SPEC GRAVITY <=1.005 Abnormal 1.005-<=1. 025 [facility] Comment on above: Performed By: #### L ACT #### [facility] [address] [place] [address] Dr. Yesenia Ruffin UA PROTEIN Negative Normal NEGATIVE/ TRACE [facility] Comment on above: Performed By: #### L ACT #### [facility] [address] [place] [address] Dr. Yesenia Ruffin UR MICRO IND NOT INDICATED Normal [facility] Comment on above: Performed By: #### L ACT #### [facility] [address] [place] [address] Dr. Yesenia Ruffin Urobilinogen Qn (U) 0.2 {Heavenly'U}/dL Normal 0.2 - 1. 0 [facility] Comment on above: Performed By: #### L ACT #### [facility] [address] [place] [address] Dr. Yesenia Ruffin LACTATE/LACTIC ACIDon 2021 Lactate [Moles/Vol] 1.4 mmol/L Normal 0.7-2.0 [facility] Comment on above: Performed By: #### L ACT #### [facility] [address] [place] [address] Dr. Yesenia Ruffin LIPASEon 06-09-2021 Lipase [Catalytic activity/Vol] 77.0 U/L Normal 23.0-300.0 [facility] Comment on above: Performed By: #### L ACT #### [facility] [address] [place] [address] Dr. Yesenia Ruffin POINT OF CARE GLUCOSEon Glucose [Mass/Vol] 129 mg/dL Critically high 74-106 [facility] Comment on above: Performed By: #### P OCGLUC #### [facility] [address] [place] [address] Dr. Yesenia Ruffin PROF 14(COMP METB)on 022 Albumin [Mass/Vol] 3.6 g/dL Normal 3.5-5.0 [facility] Comment on above: Performed By: #### L ACT #### [facility] [address] [place] [address] Dr. Yesenia Ruffin Albumin/Globulin [Mass ratio] 0.9 {ratio} Normal [facility] Comment on above: Performed By: #### L ACT #### [facility] [address] [place] [address] Dr. Yesenia Ruffin ALP [Catalytic activity/Vol] 107 U/L Normal 38-126 [facility] Comment on above: Performed By: #### L ACT #### [facility] [address] [place] [address] Dr. Yesenia Ruffin ALT [Catalytic activity/Vol] 23 U/L Normal 9-52 [facility] Comment on above: Performed By: #### L ACT #### [facility] [address] [place] [address] Dr. Yesenia Ruffin Anion gap [Moles/Vol] 11.6 mmol/L Normal [facility] Comment on above: Performed By: #### L ACT #### [facility] [address] [place] [address] Dr. Yesenia Ruffin AST [Catalytic activity/Vol] 17 U/L Normal 14-36 [facility] Comment on above: Performed By: #### L ACT #### [facility] [address] [address] [address] Yesenia Ruffin Bilirubin [Mass/Vol] 0.3 mg/dL Normal 0.2-1.3 [facility] Comment on above: Performed By: #### L ACT #### [facility] [address] [address] [address] Yesenia Ruffin Calcium [Mass/Vol] 10.5 mg/dL Critically high 8.4-10.2 [facility] Comment on above: Performed By: #### L ACT #### [facility] [address] [place] [address] Dr. Yesenia Ruffin Chloride [Moles/Vol] 94 mmol/L Critically low 98-107 [facility] Comment on above: Performed By: #### L ACT #### [facility] [address] [place] [address] Dr. Yesenia Ruffin CO2 [Moles/Vol] 33.6 mmol/L Critically high 22.0-30.0 [facility] Comment on above: Performed By: #### L ACT #### [facility] [address] [place] [address] Dr. Yesenia Ruffin Creatinine [Mass/Vol] 1.48 mg/dL Critically high 0.52-1.04 [facility] Comment on above: Performed By: #### L ACT #### [facility] [address] [place] [address] Dr. Yesenia Ruffin EGFR-AF MACANESE 44 mL/min/1.73m2 Critically low >=60 [facility] Comment on above: Performed By: #### L ACT #### [facility] [address] [place] [address] Dr. Yesenia Ruffin EGFR-NON AF MACANESE 36 mL/min/1.73m2 Critically low >=60 [facility] Comment on above: Performed By: #### L ACT #### [facility] [address] [address] [address] Yesenia Ruffin Globulin (S) [Mass/Vol] 4.0 g/dL Normal [facility] Comment on above: Performed By: #### L ACT #### [facility] [address] [address] [address] Yesenia Ruffin Glucose [Mass/Vol] 149 mg/dL Critically high 74-106 [facility] Comment on above: Performed By: #### L ACT #### [facility] [id number] Yesenia Ruffin Potassium [Moles/Vol] 3.2 mmol/L Critically low 3.4-5.0 [facility] Comment on above: Performed By: #### L ACT #### [facility] [address] [address] [address] Yesenia Ruffin Protein [Mass/Vol] 7.6 g/dL Normal 6.1-8.2 [facility] Comment on above: Performed By: #### L ACT #### [facility] [address] [address] [address] Yesenia Ruffin Sodium [Moles/Vol] 136 mmol/L Critically low 137-145 [facility] Comment on above: Performed By: #### L ACT #### [facility] [address] [address] [address] Yesenia Ruffin Urea nitrogen [Mass/Vol] 49.0 mg/dL Critically high 7.0-17.0 [facility] Comment on above: Performed By: #### L ACT #### [facility] [address] [address] [address] Yesenia Ruffin Urea nitrogen/Creatinine [Mass ratio] 33.1 mg/mg Normal [facility] Comment on above: Performed By: #### L ACT #### [facility] [id number] Yesenia Ruffin A1C HEMOGLOBINon 04-30-2021 HbA1c (Bld) [Mass fraction] 6.5 % [facility] Other HbA1c (Bld) [Mass fraction]o n 04-30-2021 A1C HEMOGLOBIN [facility] [employer] Other COVID Quick Testingon 2020 Result Negative [facility] [employer] Other A1C HEMOGLOBINon 01-24-2021 HbA1c (Bld) [Mass fraction] 7.4 % [facility] [employer] Other HbA1c (Bld) [Mass fraction]o n 01-24-2021 A1C HEMOGLOBIN [facility] [employer] Other Vital Signs Date Time Vital Sign Value Performing Clinician Facility 06-27-2024 10:51-0500 Body height 147.32 cm [facility] 06-27-2024 10:51-0500 Body mass index (BMI) [Ratio] 44.3 kg/m2 [facility] 06-27-2024 10:51-0500 Body weight 96.16 kg [facility] 06-27-2024 10:51-0500 Diastolic blood pressure 88 mm[Hg] [facility] 06-27-2024 10:51-0500 Heart rate 98 /min [facility] 06-27-2024 10:51-0500 Inhaled oxygen flow rate 2 L/min [facility] 06-27-2024 10:51-0500 Respiratory rate 20 /min [facility] 06-27-2024 10:51-0500 SaO2% (BldA) [Mass fraction] 96 % [facility] 06-27-2024 10:51-0500 Systolic blood pressure 148 mm[Hg] [facility] 03-24-2024 11:03-0500 Body height 147.32 cm Whatsererer DO Work Phone: [facility] 03-24-2024 11:03-0500 Body mass index (BMI) [Ratio] 46.3 kg/m2 Morena Schwerer DO Work Phone: [facility] 03-24-2024 11:03-0500 Body temperature 97.1 [degF] Morena Schwerer DO Work Phone: [facility] 03-24-2024 11:03-0500 Body weight 100.69 kg Morena Schwerer DO Work Phone: [facility] 03-24-2024 11:03-0500 Diastolic blood pressure 94 mm[Hg] Morena Schwerer DO Work Phone: [facility] 03-24-2024 11:03-0500 Heart rate 84 /min Morena Schwerer DO Work Phone: [facility] 03-24-2024 11:03-0500 Inhaled oxygen flow rate 2 L/min Morena Schwerer DO Work Phone: [facility] 03-24-2024 11:03-0500 Respiratory rate 20 /min Morena Schwerer DO Work Phone: [facility] 03-24-2024 11:03-0500 SaO2% (BldA) [Mass fraction] 98 % Morena Schwerer DO Work Phone: [facility] 03-24-2024 11:03-0500 Systolic blood pressure 130 mm[Hg] Morena Schwerer DO Work Phone: [facility] 12-24-2023 10:51-0400 Body height 148.59 cm DO Morena Schwerer Work Phone: [facility] 12-24-2023 10:51-0400 Body mass index (BMI) [Ratio] 45.2 kg/m2 DO Morena Schwerer Work Phone: [facility] 12-24-2023 10:51-0400 Body temperature 97.7 [degF] DO Morena Schwerer Work Phone: [facility] 12-24-2023 10:51-0400 Body weight 99.96 kg DO Morena Schwerer Work Phone: [facility] 12-24-2023 10:51-0400 Diastolic blood pressure 74 mm[Hg] DO Morena Schwerer Work Phone: [facility] 12-24-2023 10:51-0400 Heart rate 83 /min DO Morena Schwerer Work Phone: [facility] 12-24-2023 10:51-0400 Inhaled oxygen flow rate 2 L/min DO Morena Schwerer Work Phone: [facility] 12-24-2023 10:51-0400 Respiratory rate 20 /min DO Morena Schwerer Work Phone: [facility] 12-24-2023 10:51-0400 SaO2% (BldA) [Mass fraction] 97 % DO Morena Schwerer Work Phone: [facility] 12-24-2023 10:51-0400 Systolic blood pressure 118 mm[Hg] DO Morena Schwerer Work Phone: [facility] 12-11-2023 11:34-0400 Body height 148.59 cm DO Morena Schwerer Work Phone: [facility] 12-11-2023 11:34-0400 Body mass index (BMI) [Ratio] 45.8 kg/m2 DO Morena Schwerer Work Phone: [facility] 12-11-2023 11:34-0400 Body temperature 98.8 [degF] DO Morena Schwerer Work Phone: [facility] 12-11-2023 11:34-0400 Body weight 101.17 kg DO Morena Schwerer Work Phone: [facility] 12-11-2023 11:34-0400 Diastolic blood pressure 76 mm[Hg] DO Morena Schwerer Work Phone: [facility] 12-11-2023 11:34-0400 Heart rate 91 /min DO Morena Schwerer Work Phone: [facility] 12-11-2023 11:34-0400 Inhaled oxygen flow rate 2 L/min DO Morena Schwerer Work Phone: [facility] 12-11-2023 11:34-0400 SaO2% (BldA) [Mass fraction] 96 % DO Morena Schwerer Work Phone: [facility] 12-11-2023 11:34-0400 Systolic blood pressure 122 mm[Hg] DO Morena Schwerer Work Phone: [facility] 10-30-2023 13:32-0400 Diastolic blood pressure 74 mm[Hg] DO Morena Schwerer Work Phone: [facility] 10-30-2023 13:32-0400 Heart rate 69 /min DO Morena Schwerer Work Phone: [facility] 10-30-2023 13:32-0400 Inhaled oxygen flow rate 2 L/min DO Morena Schwerer Work Phone: [facility] 10-30-2023 13:32-0400 Respiratory rate 16 /min DO Morena Schwerer Work Phone: [facility] 10-30-2023 13:32-0400 SaO2% (BldA) [Mass fraction] 96 % DO Morena Schwerer Work Phone: [facility] 10-30-2023 13:32-0400 Systolic blood pressure 125 mm[Hg] DO Morena Schwerer Work Phone: [facility] 10-30-2023 08:26-0400 Body height 172.72 cm DO Morena Schwerer Work Phone: [facility] 10-30-2023 08:26-0400 Body temperature 98.4 [degF] DO Morena Schwerer Work Phone: [facility] 10-30-2023 08:26-0400 Body weight 102 kg DO Morena Schwerer Work Phone: [facility] 10-22-2023 12:55-0400 Body height 147.32 cm DO Morena Schwerer Work Phone: [facility] 10-22-2023 12:55-0400 Body mass index (BMI) [Ratio] 47 kg/m2 DO Morena Schwerer Work Phone: [facility] 10-22-2023 12:55-0400 Body weight 102.05 kg DO Morena Schwerer Work Phone: [facility] 10-22-2023 12:55-0400 Diastolic blood pressure 64 mm[Hg] DO Morena Schwerer Work Phone: [facility] 10-22-2023 12:55-0400 Heart rate 98 /min DO Morena Schwerer Work Phone: [facility] 10-22-2023 12:55-0400 Inhaled oxygen flow rate 2 L/min DO Morena Schwerer Work Phone: [facility] 10-22-2023 12:55-0400 Respiratory rate 18 /min DO Morena Schwerer Work Phone: [facility] 10-22-2023 12:55-0400 SaO2% (BldA) [Mass fraction] 95 % DO Morena Schwerer Work Phone: [facility] 10-22-2023 12:55-0400 Systolic blood pressure 130 mm[Hg] DO Morena Schwerer Work Phone: [facility] 09-25-2023 10:26-0400 Diastolic blood pressure 90 mm[Hg] DO Morena Schwerer Work Phone: 2(932)[phone] [place] [address] 09-25-2023 10:26-0400 Heart rate 74 /min DO Morena Schwerer Work Phone: 4(767)[phone] [place] [address] 09-25-2023 10:26-0400 Systolic blood pressure 130 mm[Hg] DO Morena Schwerer Work Phone: 3(558)[phone] [place] [address] 09-25-2023 09:42-0400 Body height 147.32 cm DO Morena Schwerer Work Phone: 6(584)[phone] [place] [address] 09-25-2023 09:42-0400 Body weight 104.32 kg DO Morena Schwerer Work Phone: 6(882)[phone] [place] [address] 09-10-2023 13:04-0400 Body height 148.59 cm DO Morena Schwerer Work Phone: 8(264)[phone] [place] [address] 09-10-2023 13:04-0400 Body mass index (BMI) [Ratio] 46.2 kg/m2 DO Morena Schwerer Work Phone: 7(103)[phone] [place] [address] 09-10-2023 13:04-0400 Body weight 102.05 kg DO Morena Schwerer Work Phone: [facility] 09-10-2023 13:04-0400 Diastolic blood pressure 84 mm[Hg] DO Morena Schwerer Work Phone: [facility] 09-10-2023 13:04-0400 Heart rate 84 /min DO Morena Schwerer Work Phone: [facility] 09-10-2023 13:04-0400 Inhaled oxygen flow rate 2 L/min DO Morena Schwerer Work Phone: [facility] 09-10-2023 13:04-0400 Respiratory rate 22 /min DO Morena Schwerer Work Phone: [facility] 09-10-2023 13:04-0400 SaO2% (BldA) [Mass fraction] 95 % DO Morena Bravo Work Phone: [facility] 09-10-2023 13:04-0400 Systolic blood pressure 122 mm[Hg] DO Morena Bravo Work Phone: [facility] 08-27-2023 09:31-0400 Body height 148.59 cm [facility] 08-27-2023 09:31-0400 Body mass index (BMI) [Ratio] 45.8 kg/m2 [facility] 08-27-2023 09:31-0400 Body temperature 98.3 [degF] [facility] 08-27-2023 09:31-0400 Body weight 101.15 kg [facility] 08-27-2023 09:31-0400 Diastolic blood pressure 84 mm[Hg] [facility] 08-27-2023 09:31-0400 Heart rate 89 /min [facility] 08-27-2023 09:31-0400 Inhaled oxygen flow rate 2 L/min [facility] 08-27-2023 09:31-0400 Respiratory rate 20 /min [facility] 08-27-2023 09:31-0400 SaO2% (BldA) [Mass fraction] 96 % [facility] 08-27-2023 09:31-0400 Systolic blood pressure 122 mm[Hg] [facility] 07-27-2023 14:45-0400 Body height 148.59 cm [facility] 07-27-2023 14:45-0400 Body mass index (BMI) [Ratio] 45.9 kg/m2 [facility] 07-27-2023 14:45-0400 Body temperature 98.1 [degF] [facility] 07-27-2023 14:45-0400 Body weight 101.37 kg [facility] 07-27-2023 14:45-0400 Diastolic blood pressure 84 mm[Hg] [facility] 07-27-2023 14:45-0400 Heart rate 96 /min [facility] 07-27-2023 14:45-0400 Inhaled oxygen flow rate 2 L/min [facility] 07-27-2023 14:45-0400 SaO2% (BldA) [Mass fraction] 97 % [facility] 07-27-2023 14:45-0400 Systolic blood pressure 138 mm[Hg] [facility] 06-12-2023 10:45-0500 Body height 148.59 cm Mayo Portillo Other [facility] [employer] Other 06-12-2023 10:45-0500 Body mass index (BMI) [Ratio] 45.4 kg/m2 Mayo Portillo Other [facility] Other 06-12-2023 10:45-0500 Body weight 100.25 kg Mayo Portillo Other [facility] Other 06-12-2023 10:45-0500 SaO2% (BldA) [Mass fraction] Mayo Portillo Other [facility] Other 05-15-2023 10:00-0500 Body height 148.59 cm Mayo Portillo Other [facility] 05-15-2023 10:00-0500 Body mass index (BMI) [Ratio] 46.22 kg/m2 Mayo Bobky Other [facility] Other 05-15-2023 10:00-0500 Body weight 102.06 kg Mayo Portillo Other [facility] Other 05-15-2023 10:00-0500 Body weight 102.05 kg [facility] 05-15-2023 10:00-0500 Diastolic blood pressure 82 mm[Hg] Mayo Bobky Other [facility] 05-15-2023 10:00-0500 SaO2% (BldA) [Mass fraction] Mayo Portillo Other [facility] Other 05-15-2023 10:00-0500 Systolic blood pressure 128 mm[Hg] Mayo Portillo Other [facility] 04-13-2023 13:30-0500 Body height 148.59 cm Morena Schwerer Other [facility] Other 04-13-2023 13:30-0500 Body mass index (BMI) [Ratio] 46.01 kg/m2 Morena Schwerer Other [facility] Other 04-13-2023 13:30-0500 Body weight 101.61 kg Morena Schwerer Other [facility] Other 04-13-2023 13:30-0500 Diastolic blood pressure 78 mm[Hg] Morena Schwerer Other [facility] Other 04-13-2023 13:30-0500 Respiratory rate 20 /min Morena Schwerer Other [facility] Other 04-13-2023 13:30-0500 SaO2% (BldA) [Mass fraction] 97 % Morena Schwerer Other [facility] Other 04-13-2023 13:30-0500 Systolic blood pressure 134 mm[Hg] Morena Schwerer Other [facility] Other 12-12-2022 09:00-0400 Body height 148.59 cm Morena Schwerer Other [facility] Other 12-12-2022 09:00-0400 Body mass index (BMI) [Ratio] 44.78 kg/m2 Morena Schwerer Other [facility] Other 12-12-2022 09:00-0400 Body weight 98.88 kg Morena Schwerer Other [facility] Other 12-12-2022 09:00-0400 Diastolic blood pressure 86 mm[Hg] Morena Schwerer Other [facility] Other 12-12-2022 09:00-0400 Respiratory rate 20 /min Morena Schwerer Other [facility] Other 12-12-2022 09:00-0400 SaO2% (BldA) [Mass fraction] 96 % Morena Schwerer Other [facility] Other 12-12-2022 09:00-0400 Systolic blood pressure 118 mm[Hg] Morena Schwerer Other [facility] Other 06-02-2022 16:00-0500 Body height 148.59 cm Morena Schwerer Other [facility] Other 06-02-2022 16:00-0500 Body mass index (BMI) [Ratio] 50.57 kg/m2 Morena Schwerer Other [facility] Other 06-02-2022 16:00-0500 Body temperature 97.9 [degF] Morena Schwerer Other [facility] Other 06-02-2022 16:00-0500 Body weight 111.68 kg Morena Schwerer Other [facility] Other 06-02-2022 16:00-0500 Diastolic blood pressure 76 mm[Hg] Morena Quinnerer Other [facility] Other 06-02-2022 16:00-0500 SaO2% (BldA) [Mass fraction] Morena Quinnerer Other [facility] Other 06-02-2022 16:00-0500 Systolic blood pressure 124 mm[Hg] Morena Quinnerer Other [facility] Other 04-21-2022 11:15-0500 Body height 148.59 cm Jaquelin Melendrezchas Other [facility] Other 04-21-2022 11:15-0500 Body mass index (BMI) [Ratio] 49.3 kg/m2 Jaquelin Melendrezchas Other [facility] Other 04-21-2022 11:15-0500 Body temperature 97.4 [degF] Jaquelin Melendrezchas Other [facility] Other 04-21-2022 11:15-0500 Body weight 108.86 kg Jaquelin Melendrezchas Other [facility] Other 04-21-2022 11:15-0500 Diastolic blood pressure 80 mm[Hg] Jaquelin Melendrezban Other [facility] Other 04-21-2022 11:15-0500 Respiratory rate 20 /min Jaquelin Melendrezban Other [facility] Other 04-21-2022 11:15-0500 SaO2% (BldA) [Mass fraction] Jaquelin Ac Other [facility] Other 04-21-2022 11:15-0500 Systolic blood pressure 130 mm[Hg] Jaquelin Ac Other [facility] Other 02-27-2022 09:15-0400 Body height 148.59 cm Morena Schwerer Other [facility] Other 02-27-2022 09:15-0400 Body temperature 98.8 [degF] Morena Schwerer Other [facility] Other 02-27-2022 09:15-0400 Diastolic blood pressure 78 mm[Hg] Morena Schwerer Other [facility] Other 02-27-2022 09:15-0400 SaO2% (BldA) [Mass fraction] Morena Schwerer Other [facility] Other 02-27-2022 09:15-0400 Systolic blood pressure 118 mm[Hg] Morena Schwerer Other [facility] Other 02-26-2022 15:01-0400 Inhaled oxygen flow rate 2 L/min DO Morena Schwerer Work Phone: [facility] 02-26-2022 11:13-0400 Body temperature 98.7 [degF] DO Morena Schwerer Work Phone: [facility] 02-26-2022 11:13-0400 Diastolic blood pressure 55 mm[Hg] DO Morena Schwerer Work Phone: [facility] 02-26-2022 11:13-0400 Heart rate 84 /min DO Morena Schwerer Work Phone: [facility] 02-26-2022 11:13-0400 Respiratory rate 22 /min DO Morena Schwerer Work Phone: [facility] 02-26-2022 11:13-0400 SaO2% (BldA) [Mass fraction] 96 % DO Morena Schwerer Work Phone: [facility] 02-26-2022 11:13-0400 Systolic blood pressure 133 mm[Hg] DO Morena Schwerer Work Phone: [facility] 02-25-2022 05:02-0400 Body weight 109.4 kg DO Morena Schwerer Work Phone: [facility] 02-25-2022 04:50-0400 Inhaled oxygen concentration 35 % DO Morena Schwerer Work Phone: [facility] 02-24-2022 21:35-0400 Body height 147.32 cm DO Morena Schwerer Work Phone: [facility] 02-24-2022 20:00-0400 Diastolic blood pressure 66 mm[Hg] DO Morena Schwerer Work Phone: [facility] 02-24-2022 20:00-0400 Heart rate 86 /min DO Morena Schwerer Work Phone: [facility] 02-24-2022 20:00-0400 Inhaled oxygen concentration 35 % DO Morena Schwerer Work Phone: [facility] 02-24-2022 20:00-0400 Respiratory rate 26 /min DO Morena Schwerer Work Phone: [facility] 02-24-2022 20:00-0400 SaO2% (BldA) [Mass fraction] 95 % DO Morena Schwerer Work Phone: [facility] 02-24-2022 20:00-0400 Systolic blood pressure 144 mm[Hg] DO Morena Schwerer Work Phone: [facility] 02-24-2022 16:01-0400 Body height 147.32 cm DO Morena Schwerer Work Phone: [facility] 02-24-2022 16:01-0400 Body temperature 98.7 [degF] DO Morena Schwerer Work Phone: [facility] 02-24-2022 16:01-0400 Body weight 108.86 kg DO Morena Schwerer Work Phone: [facility] 02-24-2022 10:00-0400 Body height 148.59 cm Morena Schwerer Other [facility] Other 02-24-2022 10:00-0400 Body mass index (BMI) [Ratio] 49.65 kg/m2 Morena Schwerer Other [facility] Other 02-24-2022 10:00-0400 Body weight 109.64 kg Morena Schwerer Other [facility] Other 02-24-2022 10:00-0400 Diastolic blood pressure 80 mm[Hg] Morena Schwerer Other [facility] Other 02-24-2022 10:00-0400 SaO2% (BldA) [Mass fraction] 97 % Morena Schwerer Other [facility] Other 02-24-2022 10:00-0400 Systolic blood pressure 132 mm[Hg] Morena Schwerer Other [facility] Other 02-06-2022 14:21-0400 Heart rate 82 /min DO Morena Schwerer Work Phone: [facility] 02-06-2022 14:21-0400 Respiratory rate 20 /min DO Morena Schwerer Work Phone: [facility] 02-06-2022 14:21-0400 SaO2% (BldA) [Mass fraction] 96 % DO Morena Schwerer Work Phone: [facility] 02-06-2022 14:05-0400 Diastolic blood pressure 92 mm[Hg] DO Morena Schwerer Work Phone: [facility] 02-06-2022 14:05-0400 Inhaled oxygen concentration 40 % DO Morena Schwerer Work Phone: [facility] 02-06-2022 14:05-0400 Systolic blood pressure 164 mm[Hg] DO Morena Schwerer Work Phone: [facility] 02-06-2022 12:39-0400 Body height 149.86 cm DO Morena Schwerer Work Phone: [facility] 02-06-2022 12:39-0400 Body weight 108.5 kg DO Morena Schwerer Work Phone: [facility] 02-06-2022 12:38-0400 Body temperature 97.1 [degF] DO Morena Schwerer Work Phone: [facility] 12-31-2021 16:15-0400 Body height 148.59 cm Jaquelin Ac Other [facility] Other 12-31-2021 16:15-0400 Body mass index (BMI) [Ratio] 46.63 kg/m2 Jaquelin Ac Other [facility] Other 12-31-2021 16:15-0400 Body temperature 98.4 [degF] Jaquelin Melendrezban Other [facility] Other 12-31-2021 16:15-0400 Body weight 102.97 kg Jaquelin Ac Other [facility] Other 12-31-2021 16:15-0400 Diastolic blood pressure 90 mm[Hg] Jaquelin Ac Other [facility] Other 12-31-2021 16:15-0400 Respiratory rate 20 /min Jaquelin Ac Other [facility] Other 12-31-2021 16:15-0400 SaO2% (BldA) [Mass fraction] 92 % Jaquelin Ac Other [facility] Other 12-31-2021 16:15-0400 Systolic blood pressure 136 mm[Hg] Jaquelin Ac Other [facility] Other 11-22-2021 10:45-0400 Body height 148.59 cm Morena Schwerer Other [facility] Other 11-22-2021 10:45-0400 Body mass index (BMI) [Ratio] 44.37 kg/m2 Morena Schwerer Other [facility] Other 11-22-2021 10:45-0400 Body temperature 98.3 [degF] Morena Schwerer Other [facility] Other 11-22-2021 10:45-0400 Body weight 97.98 kg Morena Schwerer Other [facility] Other 11-22-2021 10:45-0400 Diastolic blood pressure 84 mm[Hg] Morena Schwerer Other [facility] Other 11-22-2021 10:45-0400 SaO2% (BldA) [Mass fraction] 92 % Morena Schwerer Other [facility] Other 11-22-2021 10:45-0400 Systolic blood pressure 142 mm[Hg] Morena Schwerer Other [facility] Other 07-29-2021 10:30-0400 Body height 148.59 cm Morena Schwerer Other [facility] Other 07-29-2021 10:30-0400 Body mass index (BMI) [Ratio] 41.04 kg/m2 Morena Schwerer Other [facility] Other 07-29-2021 10:30-0400 Body temperature 98.9 [degF] Morena Schwerer Other [facility] Other 07-29-2021 10:30-0400 Body weight 90.63 kg Morena Schwerer Other [facility] Other 07-29-2021 10:30-0400 Diastolic blood pressure 86 mm[Hg] Morena Schwerer Other [facility] Other 07-29-2021 10:30-0400 SaO2% (BldA) [Mass fraction] 94 % Morena Schwerer Other [facility] Other 07-29-2021 10:30-0400 Systolic blood pressure 128 mm[Hg] Morena Schwerer Other [facility] Other 06-24-2021 09:00-0500 Body height 148.59 cm Morena Schwerer Other [facility] Other 06-24-2021 09:00-0500 Body mass index (BMI) [Ratio] 41.54 kg/m2 Morena Schwerer Other [facility] Other 06-24-2021 09:00-0500 Body temperature 97.9 [degF] Morena Schwerer Other [facility] Other 06-24-2021 09:00-0500 Body weight 91.72 kg Morena Schwerer Other [facility] Other 06-24-2021 09:00-0500 Diastolic blood pressure 82 mm[Hg] Morena Schwerer Other [facility] Other 06-24-2021 09:00-0500 SaO2% (BldA) [Mass fraction] 94 % Morena Schwerer Other [facility] Other 06-24-2021 09:00-0500 Systolic blood pressure 130 mm[Hg] Morena Schwerer Other [facility] Other 06-19-2021 15:15-0500 Body height 148.59 cm Vipul Jimenez Other [facility] Other 02-16-2022 15:15-0500 Body mass index (BMI) [Ratio] 42.52 kg/m2 Vipul Jimenez Other [facility] Other 06-19-2021 15:15-0500 Body weight 93.9 kg Vipul Jimenez Other [facility] Other 04-30-2021 14:30-0500 Body height 148.59 cm Morena Schwerer Other [facility] Other 04-30-2021 14:30-0500 Body mass index (BMI) [Ratio] 42.85 kg/m2 Morena Schwerer Other [facility] Other 04-30-2021 14:30-0500 Body temperature 98.4 [degF] Morena Schwerer Other [facility] Other 04-30-2021 14:30-0500 Body weight 94.62 kg Morena Schwerer Other [facility] Other 04-30-2021 14:30-0500 Diastolic blood pressure 88 mm[Hg] Morena Schwerer Other [facility] Other 04-30-2021 14:30-0500 SaO2% (BldA) [Mass fraction] 96 % Morena Schwerer Other [facility] Other 04-30-2021 14:30-0500 Systolic blood pressure 128 mm[Hg] Morena Schwerer Other [facility] Other 03-22-2021 11:00-0500 Body height 148.59 cm Radha Markham Other [facility] Other 03-22-2021 11:00-0500 Body mass index (BMI) [Ratio] 36.98 kg/m2 Radha Ginty Other [facility] Other 03-22-2021 11:00-0500 Body temperature 98.1 [degF] Radha Ginty Other [facility] Other 03-22-2021 11:00-0500 Body weight 81.65 kg Radha Ginty Other [facility] Other 03-22-2021 11:00-0500 Respiratory rate 20 /min Radha Ginty Other [facility] Other 03-22-2021 11:00-0500 SaO2% (BldA) [Mass fraction] 99 % Radha Ginty Other [facility] Other 01-24-2021 10:15-0400 Body height 148.59 cm Morena Schwerer Other [facility] Other 01-24-2021 10:15-0400 Body mass index (BMI) [Ratio] 43.8 kg/m2 Morena Schwerer Other [facility] Other 01-24-2021 10:15-0400 Body weight 96.71 kg Morena Schwerer Other [facility] Other 01-24-2021 10:15-0400 Diastolic blood pressure 72 mm[Hg] Morena Schwerer Other [facility] Other 01-24-2021 10:15-0400 Respiratory rate 18 /min Morena Schwerer Other [facility] Other 01-24-2021 10:15-0400 SaO2% (BldA) [Mass fraction] 97 % Morena Schwerer Other [facility] Other 01-24-2021 10:15-0400 Systolic blood pressure 128 mm[Hg] Morena Schwerer Other [facility] Other Encounters Encounter Date Encounter Type Care Provider Facility Start: 06-27-2024 End: 06-27-2024 ambulatory [facility] Work Phone: Start: 06-27-2024 End: 06-27-2024 Patient encounter procedure [facility] Work Phone: Start: 03-24-2024 End: 03-24-2024 ambulatory Morena E Schwerer DO Work Phone: [facility] Work Phone: Start: 03-24-2024 End: 03-24-2024 Patient encounter procedure Morena Schwerer DO Work Phone: [facility] Work Phone: Start: 01-27-2024 End: 01-27-2024 ambulatory DO Morena E Schwerer Work Phone: [facility] Work Phone: Start: 01-27-2024 End: 01-27-2024 Patient encounter procedure DO Morena Schwerer Work Phone: [facility] Work Phone: Start: 12-24-2023 End: 12-24-2023 ambulatory DO Morena E Schwerer Work Phone: [facility] Work Phone: Start: 12-24-2023 End: 12-24-2023 Patient encounter procedure DO Morena Schwerer Work Phone: [facility] Pulmonary Disease Work Phone: Start: 12-11-2023 End: 12-11-2023 ambulatory DO Morena E Schwerer Work Phone: [facility] Work Phone: Start: 12-11-2023 End: 12-11-2023 Patient encounter procedure DO Morena Schwerer Work Phone: [facility] Family Medicine [place] Work Phone: Start: 11-10-2023 Non-patient / Non-visit DO Jensen tlin Schwerer Work Phone: [facility] Pulmonary Disease Work Phone: Start: 11-09-2023 End: 11-09-2023 Patient encounter procedure DO Morena Schwerer Work Phone: [facility]-Respiratory Therapy Work Phone: Start: 11-09-2023 End: 11-09-2023 ambulatory DO Morena E Schwerer Work Phone: [facility] Work Phone: Start: 10-30-2023 Non-patient / Non-visit DO Jensen tlin Schwerer Work Phone: [facility] Cardiology Work Phone: Start: 10-30-2023 End: 10-30-2023 Admission to same day surgery center DO Morena Schwerer Work Phone: [facility]-Heel Trimmer Work Phone: Start: 10-30-2023 End: 10-30-2023 ambulatory DO Morena E Schwerer Work Phone: [facility] Work Phone: Start: 10-28-2023 End: 10-28-2023 Patient encounter procedure DO Morena Schwerer Work Phone: [facility] Work Phone: Start: 10-28-2023 End: 10-28-2023 ambulatory DO Morena E Schwerer Work Phone: [facility] Work Phone: Start: 10-28-2023 Encounter for preprocedural laboratory examination Sanya Valadez [facility] Start: 10-22-2023 End: 10-22-2023 ambulatory DO Morena E Schwerer Work Phone: [facility] Work Phone: Start: 10-22-2023 End: 10-22-2023 Patient encounter procedure DO Morena Schwerer Work Phone: [facility] Work Phone: Start: 09-25-2023 Non-patient / Non-visit DO Jensen tlin Schwerer Work Phone: [facility] Work Phone: Start: 09-25-2023 End: 09-25-2023 Patient encounter procedure DO Morena Schwerer Work Phone: [facility]-Electrodiagnostics Work Phone: Start: 09-25-2023 End: 09-25-2023 ambulatory DO Morena E Schwerer Work Phone: [facility] Work Phone: Start: 09-24-2023 End: 09-24-2023 ambulatory DO Morena E Schwerer Work Phone: [facility] Work Phone: Start: 09-24-2023 End: 09-24-2023 Patient encounter procedure DO Morena Schwerer Work Phone: [facility]-CT [address] Work Phone: Start: 09-10-2023 End: 09-10-2023 ambulatory DO Morena E Schwerer Work Phone: [facility] Work Phone: Start: 09-10-2023 End: 09-10-2023 Patient encounter procedure DO Morena Schwerer Work Phone: [facility] Work Phone: Start: 09-04-2023 Non-patient / Non-visit DO Jensen tlin Schwerer Work Phone: [facility] Pul[facility] Disease Work Phone: Start: 09-04-2023 End: 09-04-2023 Patient encounter procedure DO Morena Schwerer Work Phone: [facility]-Respiratory Therapy Work Phone: Start: 09-04-2023 End: 09-04-2023 ambulatory DO Morena E Schwerer Work Phone: [facility] Work Phone: Start: 08-27-2023 End: 08-27-2023 Patient encounter procedure DO Morena Schwerer Work Phone: [facility]-Lab [facility] Start: 08-27-2023 End: 08-27-2023 ambulatory DO Morena E Schwerer Work Phone: [facility] Work Phone: Start: 08-27-2023 End: 08-27-2023 ambulatory [facility] Work Phone: Start: 08-27-2023 End: 08-27-2023 Patient encounter procedure [facility] Pulmonary Disease Work Phone: Start: 07-27-2023 End: 07-27-2023 ambulatory [facility] Work Phone: Start: 07-27-2023 End: 07-27-2023 Patient encounter procedure [facility] Family Medicine [place] Work Phone: Start: 07-21-2023 Non-patient / Non-visit [facility] Work Phone: Start: 06-18-2023 Non-patient / Non-visit [facility] Work Phone: Start: 06-12-2023 End: 06-12-2023 ambulatory Mayo Portillo Other [facility] Other Start: 06-12-2023 Office outpatient vi sit 15 minutes Mayolisy Portillo [facility] [place] Start: 05-26-2023 (PROC) PROCEDURE Mayo Portillo [facility] Start: 05-26-2023 End: 05-26-2023 ambulatory Mayolisy Portillo Other [facility] Other Start: 05-26-2023 Non-patient / Non-visit [facility] Work Phone: Start: 05-21-2023 End: 05-21-2023 ambulatory Morena Schwerer Other [facility] Other Start: 05-21-2023 Telephone encounter Morena Schwerer [facility] Start: 05-15-2023 End: 05-15-2023 ambulatory Mayolisy Portillo Other [facility] Other Start: 05-15-2023 Office consultation new/estab patient 60 min Mayo Jeff [facility] [place] Start: 05-15-2023 End: 05-15-2023 Patient encounter procedure [facility] [place] Work Phone: Start: 04-13-2023 End: 04-13-2023 ambulatory Morena Schwerer Other [facility] Other Start: 04-13-2023 Office outpatient vi sit 25 minutes Morena Schwerer [facility] [place] Start: 04-07-2023 End: 04-07-2023 Patient encounter procedure DO Morena Schwerer Work Phone: [facility] [place] Work Phone: Start: 04-07-2023 End: 04-07-2023 ambulatory DO Morena E Schwerer Work Phone: [facility] Work Phone: Start: 01-30-2023 End: 01-30-2023 ambulatory Kamal Chaban Other [facility] Other Start: 01-30-2023 Telephone encounter Kamal Chaban [facility] Start: 12-12-2022 Office outpatient vi sit 25 minutes Morena Schwerer [facility] [place] Start: 12-12-2022 Telephone encounter Morena Schwerer [facility] [place] Start: 12-12-2022 End: 12-12-2022 ambulatory Morena E Schwerer [facility] [employer] Other Start: 09-02-2022 End: 09-02-2022 ambulatory DO Morena E Schwerer Work Phone: [facility] Work Phone: Start: 09-02-2022 End: 09-02-2022 Patient encounter procedure DO Morena Schwerer Work Phone: [facility] [facility] Work Phone: Start: 07-28-2022 End: 07-28-2022 ambulatory Morena Schwerer Other [facility] Other Start: 07-28-2022 Telephone encounter Morena Schwerer [facility] [place] Start: 06-02-2022 End: 06-02-2022 ambulatory Morena Schwerer Other [facility] Other Start: 06-02-2022 Office outpatient vi sit 25 minutes Morena Schwerer [facility] [place] Start: 05-23-2022 End: 05-23-2022 ambulatory Morena Schwerer Other [facility] Other Start: 05-23-2022 Telephone encounter Morena Schwerer [facility] Medicine [place] Start: 04-21-2022 End: 04-21-2022 ambulatory Kamal Chaban Other [facility] Other Start: 04-21-2022 Office outpatient vi sit 25 minutes Kamal Chaban [facility] Start: 04-17-2022 End: 04-17-2022 ambulatory DO Morena E Schwerer Work Phone: [facility] Work Phone: Start: 04-17-2022 End: 04-17-2022 Patient encounter procedure DO Morena Schwerer Work Phone: [facility]-Sleep Lab Start: 04-09-2022 End: 04-09-2022 ambulatory DO Morena E Schwerer Work Phone: [facility] Work Phone: Start: 04-09-2022 End: 04-09-2022 Patient encounter procedure DO Morena Schwerer Work Phone: [facility]-Sleep Lab Start: 03-25-2022 End: 03-25-2022 ambulatory DO Morena E Schwerer Work Phone: [facility] Work Phone: Start: 03-25-2022 End: 03-25-2022 Patient encounter procedure DO Morena Schwerer Work Phone: [facility]-CT Scan [place] Start: 03-18-2022 Telephone encounter Morena Schwerer [facility] Start: 03-18-2022 End: 03-18-[address] SCHMITT [facility] [employer] Other Start: 03-10-2022 End: 03-10-2022 ambulatory Morena Schwerer Other [facility] Other Start: 03-10-2022 Telephone encounter Morena Schwerer [facility] Start: 03-07-2022 End: 03-07-2022 ambulatory Morena Schwerer Other [facility] Other Start: 03-07-2022 Telephone encounter Morena Schwerer [facility] Start: 03-03-2022 End: 03-03-2022 ambulatory Morena Schwerer Other [facility] Other Start: 03-03-2022 Telephone encounter Morena Schwerer [facility] Start: 02-27-2022 End: 02-27-2022 ambulatory Morena Schwerer Other [facility] Other Start: 02-27-2022 Office outpatient vi sit 25 minutes Morena Schwerer [facility] Start: 02-27-2022 Telephone encounter Morena Schwerer [facility] Start: 02-24-2022 End: 02-26-2022 Evaluation and management of inpatient DO Morena Schwerer Work Phone: [facility] [place] [facility] Start: 02-24-2022 End: 02-24-2022 ambulatory Morena Schwerer Other [facility] Other Start: 02-24-2022 Office outpatient vi sit 40 minutes Morena Schwerer [facility] Start: 02-17-2022 End: 02-17-2022 ambulatory DO Morena E Schwerer Work Phone: [facility] Work Phone: Start: 02-17-2022 End: 02-17-2022 Discharged Recurring DO Morena Schwerer Work Phone: [facility]-Physical Therapy [address] Start: 02-17-2022 Registered Recurring DO Kaitli n Schwerer Work Phone: [facility]-Physical Therapy [address] Start: 02-07-2022 End: 02-07-2022 ambulatory Morena Schwerer Other [facility] Other Start: 02-07-2022 Telephone encounter Morena Schwerer [facility] Start: 02-06-2022 End: 02-06-2022 Emergency department patient visit DO Morena Schwerer Work Phone: [facility]-Emergency Room Start: 02-06-2022 Registered Recurring DO Kaitli n Schwerer Work Phone: [facility]-Physical Therapy [address] Start: 01-28-2022 End: 01-28-2022 ambulatory Morena Schwerer Other [facility] Other Start: 01-28-2022 Telephone encounter Morena Schwerer [facility] Start: 01-14-2022 End: 01-14-2022 ambulatory Clara Angie Other [facility] Other Start: 01-14-2022 Telephone encounter Clara Angie [facility] Start: 12-31-2021 End: 12-31-2021 ambulatory Jaquelin Chachas Other [facility] Other Start: 12-31-2021 Office outpatient vi sit 40 minutes Kamal Parvinban [facility] Start: 12-12-2021 End: 12-12-2021 ambulatory Morena Schwerer Other [facility] Other Start: 12-12-2021 Telephone encounter Morena Schwerer [facility] Start: 12-12-2021 End: 12-12-2021 Patient encounter procedure DO Morena Schwerer Work Phone: [facility]-Lab [facility] Start: 12-03-2021 End: 12-03-2021 ambulatory Morena Schwerer Other [facility] Other Start: 12-03-2021 Telephone encounter Morena Schwerer [facility] Start: 11-22-2021 End: 11-22-2021 ambulatory Morena Schwerer Other [facility] Other Start: 11-22-2021 Office outpatient vi sit 25 minutes Morena Schwerer [facility] Start: 11-22-2021 End: 11-22-2021 Patient encounter procedure DO Morena Schwerer Work Phone: [facility]-X-Ray [facility] Start: 10-01-2021 End: 10-01-2021 ambulatory Morena Schwerer Other [facility] Other Start: 10-01-2021 Telephone encounter Morena Schwerer [facility] Start: 09-03-2021 End: 09-03-2021 ambulatory Morena Schwerer Other [facility] Other Start: 09-03-2021 Telephone encounter Morena Schwerer [facility] [place] Start: 08-02-2021 End: 08-02-2021 ambulatory Morena Schwerer Other [facility] Other Start: 08-02-2021 Telephone encounter Moerna Schwerer [facility] [place] Start: 07-29-2021 End: 07-29-2021 ambulatory Morena Schwerer Other [facility] Other Start: 07-29-2021 Office outpatient vi sit 15 minutes Morena Schwerer [facility] [place] Start: 07-04-2021 End: 07-04-2021 ambulatory Morena Schwerer Other [facility] Other Start: 07-04-2021 Telephone encounter Morena Schwerer [facility] [place] Start: 06-24-2021 End: 06-24-2021 ambulatory Morena Schwerer Other [facility] Other Start: 06-24-2021 Office outpatient vi sit 25 minutes Morena Schwerer [facility] [place] Start: 06-19-2021 End: 06-19-2021 ambulatory Vipul Jimenez Other [facility] Other Start: 06-19-2021 Office outpatient vi sit 25 minutes Vipul Jimenez [facility] Gastroenterology Start: 06-17-2021 End: 06-17-2021 ambulatory Morena Schwerer Other [facility] Other Start: 06-17-2021 Telephone encounter Morena Schwerer [facility] [place] Start: 06-12-2021 End: 06-12-2021 ambulatory Vipul Jimenez Other [facility] Other Start: 06-12-2021 Telephone encounter Morena Schwerer [facility] [place] Start: 06-11-2021 End: 06-11-2021 ambulatory Vipul Jimenez Other [facility] Other Start: 06-11-2021 Telephone encounter Vipul Jimenez [facility] Start: 06-10-2021 End: 06-10-2021 ambulatory Morena Schwerer Other [facility] Other Start: 06-10-2021 Telephone encounter Morena Schwerer [facility] [place] Start: 06-09-2021 End: 06-11-[address] DOCTOR CASTRO Facility: Start: 05-08-2021 End: 05-08-2021 ambulatory Morena Schwerer Other [facility] Other Start: 05-08-2021 Telephone encounter Morena Schwerer [facility] [place] Start: 04-30-2021 End: 04-30-2021 ambulatory Morena Schwerer Other [facility] Other Start: 04-30-2021 Office outpatient vi sit 25 minutes Morena Schwerer [facility] [place] Start: 04-23-2021 End: 04-23-2021 ambulatory Vipul Jimenez Other [facility] Other Start: 04-23-2021 Telephone encounter Vipul Jimenez [facility] Start: 04-22-2021 End: 04-22-2021 ambulatory Morena Schwerer Other [facility] Other Start: 04-22-2021 Telephone encounter Morena Schwerer [facility] [place] Start: 04-17-2021 End: 04-17-2021 ambulatory Vipul Jimenez Other [facility] Other Start: 04-17-2021 Telephone encounter Vipul Jimenez [facility] Gastroenterology Start: 03-22-2021 End: 03-22-2021 ambulatory Radha Markham Other [facility] Other Start: 03-22-2021 Office outpatient vi sit 15 minutes Radha Markham [facility] Urgent Care [facility] Start: 02-14-2021 End: 02-14-2021 ambulatory Vipul Jimenez Other [facility] Other Start: 02-14-2021 Telephone encounter Vipul Jeffreylaura [facility] Gastroenterology Start: 01-31-2021 Telephone encounter Morenamihai Ambrosior [facility] Start: 01-24-2021 Office outpatient vi sit 25 minutes Morena Cheyenneerer [facility] Procedures Date Procedure Procedure Detail Performing Clinician Start: 01-27-2024 Screening mammograph y of bilateral breasts DO Morena GOQiierer Work Phone: Start: 10-30-2023 [facility] Angio DO Rosalina Quinnerer Work Phone: Start: 09-25-2023 Radionuclide myocard ial [...] six views including bending views DO Morena Ambrosior Work Phone: Respiratory Panel (PCR) DO Rosalina Bravo Work Phone: SARS-CoV-2, Influenz a & RSV (PCR) DO Morena Bravo Work Phone: Plan of Treatment Date Care Activity Detail Author Start: 10-30-2023 [facility] Start: 10-22-2023 Patient referral [facility] Work Phone: Start: 09-25-2023 Radionuclide myocard ial perfusion stress study NM darci perf SPECT rest & str [facility] Start: 09-25-2023 SPECT Heart perfusio n at rest and W stress and W radionuclide IV [facility] Start: 09-10-2023 [facility] Start: 09-03-2023 Patient referral [facility] Work Phone: Start: 03-01-2022 Blood chemistry [facility] Start: 03-01-2022 Magnesium measurement F [facility] Start: 03-01-2022 [facility] Start: 02-28-2022 Blood chemistry [facility] Start: 02-28-2022 Magnesium measurement F [facility] Start: 02-28-2022 [facility] Start: 02-27-2022 Blood chemistry [facility] Start: 02-27-2022 Magnesium measurement F [facility] Start: 02-27-2022 [facility] Start: 02-26-2022 Blood chemistry [facility] Start: 02-26-2022 Magnesium measurement F [facility] Start: 02-26-2022 End: 02-26-2022 [facility] Start: 02-25-2022 Blood chemistry [facility] Start: 02-25-2022 Magnesium measurement F [facility] Start: 02-25-2022 [facility] Start: 02-25-2022 [facility] Start: 02-24-2022 Hospital admission [facility] Start: 02-24-2022 [facility] Start: 01-02-2022 Registered Recurring Registered Recu rring [facility]-Physical Therapy [facility] Comprehensive metabo lic 1999 panel - Serum or Plasma [facility] CT Unspecified body region [facility] CT Unspecified body region [facility] MG Breast - bilatera l Screening [facility] Patient Education [facility] Work Phone: Patient referral [facility] Work Phone: [facility] Immunizations Immunization Date Immunization Notes Care Provider Fa cility 05-14-2023 COVID-19 (MODERNA) 12Y and older DO Morena Schwerer Work Phone: [facility] 03-09-2023 Flu Shot - Documentation Purposes Only Morena Schwerer Other [facility] 02-28-2022 influenza, seasonal, injectable Morena Schwerer Other [facility] 06-13-2021 influenza, injectabl e, quadrivalent, preservative free DO Morena Schwerer Work Phone: [facility] 06-13-2021 influenza, seasonal, injectable Morena Schwerer Other [facility] 04-18-2021 COVID-19 Vaccine Moderna - Documentation Purposes Only Morena Schwerer Other [facility] 08-31-2020 COVID-19 mRNA-1273 (Moderna) DO Morena Schwerer Work Phone: [facility] 07-31-2020 COVID-19 Vaccine Moderna - Documentation Purposes Only Morena Schwerer Other [facility] 07-03-2020 COVID-19 Vaccine Moderna - Documentation Purposes Only Morena Schwerer Other [facility] 02-12-2020 zoster vaccine recombinant Morena Schwerer Other [facility] 09-19-2019 pneumococcal polysaccharide vaccine, 23 valent Morena Schwerer Other [facility] 09-19-2019 zoster vaccine recombinant Morena Schwerer Other [facility] 07-18-2019 Kenalog -40 mg Morena Schwe rer Other [facility] Other 10-04-2018 tetanus toxoid, redu clif[place] diphtheria toxoid, and acellular pertussis vaccine, adsorbed DO Morena Schwerer Work Phone: [facility] 05-04-2018 pneumococcal polysaccharide vaccine, 23 valent Morena Schwerer Other [facility] Payers Date Payer Category Payer Medicare [id number] 2022 Private Health Insurance [id number] 2022 Self-pay [id number] 2022 Unknown [id number] 1965 Unknown [id number] 1965 Unknown [id number] 1961 Medicare [id number]. Medicare [id number] Medicare [id number] [facility] Health [facility] [id number] Private Health Insurance [employer] [id number] Unknown Regular Auto/Liability [id number] Unknown HCAP/HFA/FAP Active [id number] Unknown [id number] 531 Unknown [id number] 531 Unknown [id number] 531 Unknown [id number]. 531 Unknown [id number]. 531 Unknown [id number] 531 Unknown [id number] 531 Unknown [id number] 531 Unknown [id number] 531 Social History Date Type Detail Facility Sex Assigned At [facility] Other Start: 06-13-2021 End: 02-06-2022 Tobacco smoking status NHIS Smoker (finding) [facility] Start: 1965 Sex Assigned At Female F [facility] Start: 02-24-2022 End: 06-27-2024 Tobacco smoking status NHIS Ex-smoker (finding) [facility] Start: 12-24-2023 End: 12-24-2023 Tobacco smoking status NVIS Current some day smoker [facility] Start: 03-24-2024 End: 06-27-2024 Sex Female (finding) [facility] Medical Equipment Procedure Code Equipment Code Equipment [...] Facility 02-26-2022 Functional status [facility] Work Phone: Mental Status Date Assessment Result Facility 02-26-2022 Cognitive function Cognitive Sta tus Patient at [facility] Work Phone: Clinical Notes 01-24-2021 to 10-30-2023 Note Date & Type Note Facility 10-30-2023 Procedure note [facility] 09-25-2023 Procedure note [facility] 06-12-2023 Evaluation note Encounter Date Diagnosis Assessment [...] nerve blocks in the future if needed [facility] Other 01-12-2024 Evaluation note* Encounter Date Diagnosis [...] negative findings were considered in medical decision-making. [facility] Other 12-11-2023 Evaluation note* Encounter Date Diagnosis [...] want anesthesia due to poor respiratory status. [facility] Other 09-29-2023 Evaluation note* Encounter Date Diagnosis Assessment Notes Treatment Notes Treatment Clinical Notes Jan, Asthma-COPD overlap syndrome (ICD-10 - J44.9) [facility] Other 08-11-2023 Evaluation note* Encounter Date Diagnosis [...] (acquired) (ICD-10 - E03.9) will update labs. [facility] Other 03-27-2023 Evaluation note* Encounter Date Diagnosis Assessment Notes Treatment Notes Treatment Clinical Notes Jul, Type 2 diabetes mellitus without complication, without long-term current use of insulin (ICD-10 - E11.9) [facility] Other 01-30-2023 Evaluation note* Encounter Date Diagnosis [...] side (ICD-10 - M54.41) will refill ibu [facility] Other 12-19-2022 Evaluation note* Encounter Date Diagnosis [...] index [BMI] 45.0-49.9, adult (ICD-10 - Z68.42) [facility] Other 11-15-2022 Evaluation note* Encounter Date Diagnosis Assessment Notes Treatment Notes Treatment Clinical Notes Mar, Mass of right lung (ICD-10 - R91.8) [facility] Other 11-04-2022 Evaluation note* Encounter Date Diagnosis Assessment Notes Treatment Notes Treatment Clinical Notes Mar, Type 2 diabetes mellitus without complication, without long-term current use of insulin (ICD-10 - E11.9) [facility] Other 10-27-2022 Evaluation note* Encounter Date Diagnosis [...] weeks. Needs script for wheelchair to [facility] [employer]. She is unable to use cane or walker due to poor respiratory status. this wheelchair is needed in and out of the home to preform ADLs. Manual wheelchair. [facility] Other 10-26-2022 Hospital Discharge instructionsAmbulatory Orders* Initiate Home Health Time Frame: 02/26/22, Location: Determined By Patient Additional Instructions Continue oxygen at Continue to monitor glucose levels as before Home health to manage: -RN/PT/OT to eval and treat -Monitor VS per protocol -Fall precautions -Perform respiratory assessments -Assist with medication management and education -[facility] Phone: [phone]) 930-439710-24-2022 Evaluation note* Encounter Date Diagnosis Assessment Notes [...] Feb, Asthma-COPD overlap syndrome (ICD-10 - J44.9) [facility] Other 10-07-2022 Evaluation note* Encounter Date Diagnosis Assessment Notes Treatment Notes Treatment Clinical Notes Feb, Asthma-COPD overlap syndrome (ICD-10 - J44.9) [facility] Other 09-27-2022 Evaluation note* Encounter Date Diagnosis Assessment Notes Treatment Notes Treatment Clinical Notes Jan, Type 2 diabetes mellitus without complication, without long-term current use of insulin (ICD-10 - E11.9) [facility] Other 08-30-2022 Evaluation note* Encounter Date Diagnosis [...] and treatment was discussed today at length [facility] Other 08-11-2022 Evaluation note* Encounter Date Diagnosis Assessment Notes Treatment Notes Treatment Clinical Notes Dec, Type 2 diabetes mellitus without complication, without long-term current use of insulin (ICD-10 - E11.9) Dec, Hypothyroidism (acquired) (ICD-10 - E03.9) Dec, Hyperlipemia, mixed (ICD-10 - E78.2) [facility] Other 08-02-2022 Evaluation note* Encounter Date Diagnosis Assessment Notes Treatment Notes Treatment Clinical Notes Dec, Lower extremity edema (ICD-10 - R60.0) Dec, Type 2 diabetes mellitus without complication, without long-term current use of insulin (ICD-10 - E11.9) [facility] Other 07-22-2022 Evaluation note* Encounter Date Diagnosis [...] with Dr. Ac end of the month. [facility] Other 05-03-2022 Evaluation note* Encounter Date Diagnosis Assessment Notes Treatment Notes Treatment Clinical Notes September, Type 2 diabetes mellitus without complication, without long-term current use of insulin (ICD-10 - E11.9) [facility] Other 04-01-2022 Evaluation note* Encounter Date Diagnosis Assessment Notes Treatment Notes Treatment Clinical Notes Aug, Type 2 diabetes mellitus without complication, without long-term current use of insulin (ICD-10 - E11.9) [facility] Other 03-28-2022 Evaluation note* Encounter Date Diagnosis [...] back into health department for follow up. [facility] Other 02-21-2022 Evaluation note* Encounter Date Diagnosis [...] started back on it. continue bumex daily. [facility] Other 02-16-2022 Evaluation note* Encounter Date Diagnosis Assessment Notes Treatment Notes Treatment Clinical Notes Jun, Abdominal pain (ICD- 10 - R10.9) HIDA W/ CCK START TRIAL OF FLAGYL 500 MG BID FOR 10 DAY CONTINUE DICYCLOMINE WITHOUT CHANGE Jun, Nausea & vomiting (ICD-10 - R11.2) Jun, Gastroenteritis (ICD-10 - K52.9) [facility] Other 01-05-2022 Evaluation note* Encounter Date Diagnosis Assessment Notes Treatment Notes Treatment Clinical Notes May, Hyperlipemia, mixed (ICD-10 - E78.2) [facility] Other 12-28-2021 Evaluation note* Encounter Date Diagnosis [...] February. She is no longer on NSAIDs. [facility] Other 12-20-2021 Evaluation note* Encounter Date Diagnosis Assessment Notes Treatment Notes Treatment Clinical Notes Apr, Type 2 diabetes mellitus without complication, without long-term current use of insulin (ICD-10 - E11.9) [facility] Other 12-15-2021 Evaluation note* Encounter Date Diagnosis Assessment Notes Treatment Notes Treatment Clinical Notes Apr, Hepatitis C (ICD-10 - B19.20) [facility] Other 11-19-2021 Evaluation note* Encounter Date Diagnosis [...] Patient care instructions given in writting by [facility] Home document [facility] Other 10-14-2021 Evaluation note* Encounter Date Diagnosis Assessment Notes Treatment Notes Treatment Clinical Notes Feb, Hepatitis C (ICD-10 - B19.20) [facility] Other 09-30-2021 Evaluation note* Encounter Date Diagnosis Assessment Notes Treatment Notes Treatment Clinical Notes Jan, Hyperlipemia, mixed (ICD-10 - E78.2) [facility] Other 09-23-2021 Evaluation note* Encounter Date Diagnosis [...] she is diabetic and LDL was 120. 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 Morbid obesity acute Multiple pulmonary nodules a cute Obstructive sleep apnea acut e Pleural plaque acute Severe persistent asthma, uncomplicated acute [facility] Work Phone: evaluation note* Diagnosis Onset Date Resolution Status COPD exacerbation acute Hypertension acute Chest pain acute DM2 (diabetes mellitus, type 2) 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 Multiple pulmonary nodules a cute Obstructive sleep apnea acut e Pleural plaque acute Severe persistent asthma, uncomplicated acute Encounter for screening for lung cancer resolved History of cocaine abuse res olved History of methamphetamine abuse resolved [facility] Work Phone: evaluation note* Diagnosis Onset Date Resolution Status COPD exacerbation acute Hypertension acute Chest pain acute DM2 (diabetes mellitus, type 2) 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 Multiple pulmonary nodules a cute Obstructive sleep apnea acut e Pleural plaque acute Severe persistent asthma, uncomplicated acute Encounter for screening for lung cancer resolved History of cocaine abuse res olved History of methamphetamine abuse resolved Abnormal EKG acute Asthma-COPD overlap syndrome acute Atypical chest pain acute Chronic respiratory failure with hypoxia acute [facility] Work Phone: evaluation note* Diagnosis Onset Date Resolution Status COPD exacerbation acute Hypertension acute Chest pain acute DM2 (diabetes mellitus, type 2) 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 Multiple [...] hypoxia acute Exertional chest pain acute [facility] Work Phone: Evaluation note* Diagnosis Onset Date Resolution Status Chest pain acute DM2 (diabetes mellitus, type 2) acute 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 steroids acute Multiple [...] with hypoxia acute Exertional chest pain acute [facility] Work Phone: Evaluation note* Diagnosis Onset Date Resolution Status Abnormal cardiovascular stress test acute Asthma-COPD overlap syndrome acute Chronic respiratory failure with hypoxia acute Exertional chest pain acute DM2 (diabetes mellitus, type 2) acute [facility] Work Phone: Evaluation note* Diagnosis Onset [...] acute DM2 (diabetes mellitus, type 2) 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 Multiple pulmonary nodules a cute Obstructive sleep apnea acut e Pleural plaque acute Severe persistent asthma, uncomplicated acute Encounter for screening for lung cancer resolved History of cocaine abuse res olved History of methamphetamine abuse resolved [facility] Work Phone: Evaluation note* Diagnosis Onset Date Resolution Status Chronic respiratory failure with hypoxia acute DM2 (diabetes mellitus, type 2) acute Foreign body in foot acute Hypertension acute 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 acute DM2 (diabetes mellitus, type 2) acute 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 steroids acute Multiple pulmonary nodules a cute Obstructive sleep apnea acut e Pleural plaque acute Severe persistent asthma, uncomplicated acute Encounter for screening for lung cancer resolved History of cocaine abuse res olved History of methamphetamine abuse resolved [facility] Work Phone: Evaluation note* Diagnosis Onset Date Resolution Status Admit Date 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 acute N ovember 2023 11:00am DM2 (diabetes mellitus, type 2) acut e March 24, 2024 11:00am 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 March 24, 2024 11:00am Multiple pulmonary nodules acute March 24, 2024 11:00am Obstructive sleep apnea acute N ov2023 11:00am Pleural plaque acute March 052023 11:00am Severe persistent asthma, uncomplicated acute March 24, 024 11:00am History of cocaine abuse resolved March 24, 2024 11:00am History of methamphetamine abuse resolved March 24, 024 11:00am Chronic respiratory failure with hypoxia deleted March 24 11:00am Morbid obesity deleted March 052023 11:00am [facility] Work Phone: Evaluation note* Diagnosis Onset Date Resolution Status Admit Date 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 acute F ebruary 2024 10:37am DM2 (diabetes mellitus, type 2) acute June 27 10:37am 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 June 27, 2024 10:37am Obstructive sleep apnea acute F ebruary 2024 10:37am Pleural plaque acute June 052024 10:37am Severe persistent asthma, uncomplicated acute June 27 10:37am Chronic respiratory failure with hypoxia deleted June 27 10:37am Morbid obesity deleted June 052024 10:37am [facility] Work Phone: History and physical note Author Amish Mills [facility] February 24, 2022 8:44pm Note Date/Time February 24, 2022 8 :39pm [facility] [address] [place] [address] Hospitalist H&P Signed Patient: Cynthia Lozano MR#: [id number] : 1965 Acct:[id number] Age/Sex: 56 / F Adm Date: 2 Loc: Room: [address] [place] [address] Type: ADM IN Attending Dr: Amish Mills [...] % (Auto) 20.6 % (.) 02/24/22 16:30 Upton % (Auto) 5.1 % (.) 02/24/22 16:30 Eos % (Auto) 1.6 % (.) 02/24/22 16:30 Baso % (Auto) 1.3 % (.) 02/24/22 16:30 Neut # (Auto) 7.8 x10E3/uL (1.8-7.7) H 02/24/22 16:30 Lymph # (Auto) 2.2 x10E3/uL (1.00-4.8) 02/24/22 16:30 Upton # (Auto) 0.6 x10E3/uL (0.0-0.8) 02/24/22 16:30 [...] DO 02/24/222033 Signed By: <Electronically signed by Amish Mills DO> 02/24/222043 [facility] Work Phone: History general Narrative - Reported* Type Description Date Medical History Bipolar/schizo Medical History COPD Medical History Addiction Medical History asthma Surgical History polypectomy of right lung 2004 Surgical History x 3 Hospitalization History see above Hospitalization History COPD 10/2020 [facility] Other History general Narrative - ReportedNort TRiQ Other Histkrp general Narrative - Reported* Type Description Date Medical History Bipolar/schizo Medical History COPD Medical History Addiction Medical History asthma Surgical History polypectomy of right lung 2004 Surgical History polypectomy of right lung 2004 Surgical History x 3 Surgical History x 3 Hospitalization History see above Hospitalization History COPD 10/2020 [facility] Other Hospital Discharge instructionsAmbulatory Orders* Referral to Cardiology Location: None Selected [facility] Work Phone: Hospital Discharge instructionsAmbulatory Orders* Cardiac Catheterization Location: None [facility] Work Phone: Hospital Discharge instructions Additional Instructions 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 4. ACTIVITY: You are advised to [...] bottle, follow the instructions on the bottle. [facility] is not responsible for incorrect prescription information provided by the patient during their visit. Do not stop your medications without consulting your health care provider. 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 Morbid obesity Multiple pulmonary nodules Obstructive sleep apnea Pleural plaque Severe persistent asthma, uncomplicated Chief Complaint Amb Documentation Amb Documentation 3 month follow up 6 Month f/u- Astma w/COPD 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 E66.9 I10 j45.50 j45.50 Chest Pain, Unspecified Reason for Visit COPD exacerbation Hypertension Chest pain DM2 (diabetes mellitus, type 2) 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 Multiple pulmonary [...] Chest pain DM2 (diabetes mellitus, type 2) 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 Multiple pulmonary [...] Chest pain DM2 (diabetes mellitus, type 2) 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 steroids Multiple pulmonary [...] Chest pain DM2 (diabetes mellitus, type 2) 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 Multiple pulmonary [...] Chest pain DM2 (diabetes mellitus, type 2) 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 steroids Multiple pulmonary [...] Chest pain DM2 (diabetes mellitus, type 2) 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 steroids Multiple pulmonary [...] Chest pain DM2 (diabetes mellitus, type 2) 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 Multiple pulmonary [...] Chest pain DM2 (diabetes mellitus, type 2) 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 steroids Multiple pulmonary [...] breath j45.50 j45.50 4 month follow up SQL CONSULTANT: 3 mo f/u Asthma, SHARAD Reason for Visit Abnormal cardiovascu lar stress test Asthma-COPD overlap syndrome Chronic respiratory failure with hypoxia Exertional chest pain Chronic respiratory failure with hypoxia DM2 (diabetes mellitus, type 2) Foreign body in foot Hypertension Chest pain Cigarette nicotine dependence with nicotine-induced disorder DM2 (diabetes mellitus, type 2) 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 Multiple pulmonary nodules Obstructive sleep apnea Pleural plaque Severe persistent asthma, uncomplicated Encounter for screening for lung cancer History of cocaine abuse History of methamphetamine abuse Chief Complaint abn stress test, exe tional shortness of breath abn stress test, exetional shortness of breath j45.50 j45.50 4 month follow up SQL CONSULTANT: 3 mo f/u Asthma, SHARAD z12.31 Reason for Visit Chronic respiratory failure with hypoxia DM2 (diabetes mellitus, type 2) Foreign body in foot Hypertension Cigarette nicotine dependence with nicotine-induced disorder DM2 (diabetes mellitus, type 2) 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 steroids Multiple pulmonary nodules Obstructive sleep apnea Pleural plaque Severe persistent asthma, uncomplicated Encounter for screening for lung cancer History of cocaine abuse History of methamphetamine abuse Chief Complaint Admit Date z.January 27, 2024 1:40pm SQL CONSULTANT: 3 mo f/u Asthma, SHARAD March 24, 2024 11:00am Reason for Visit Admit Date 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 March 24, 2024 11:00am DM2 (diabetes mellitus, type 2) March 24, 2024 11:00am 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 March 24, 2024 11:00am Multiple pulmonary nodules March 11:00am Obstructive sleep apnea March 24, 2 024 11:00am Pleural plaque March 24, 2024 11:00am Severe persistent asthma, uncomplicated March 24, 2024 11:00am History of cocaine abuse March 24, 2024 11:00am History of methamphetamine abuse Novembe r 2023 11:00am Chronic respiratory failure with hypoxia March 24, 2024 11:00am Morbid obesity March 24, 2024 11:00am Chief Complaint Admit Date SQL CONSULTANT:3 mo f/u asthma June 27, 2024 10:37am Reason for Visit Admit Date 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 June 27, 2024 10:37am DM2 (diabetes mellitus, type 2) June 27, 2024 10:37am 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 June 27, 2024 10:37am Obstructive sleep apnea June 27, 025 10:37am Pleural plaque June 27, 2024 10:37am Severe persistent asthma, uncomplicated June 27, 2024 10:37am Chronic respiratory failure with hypoxia June 27, 2024 10:37am Morbid obesity June 27, 2024 10:37am Family History Relationship Condition Age at Onset [...] Recorded Date/ Time Advance Directives No August 26, 10:00am Advance Directive Response Recorded Date/ Time Advance Directives No August 26 9:00am Summary Purpose Reason for Referral Reason jeff - radicular low back pain Diagnosis 1 Lumbar radiculopathy (M54.16) Referral Organization [facility] Referring Provider First Name Morena Referring Provider Last Name Schwerer Referring Provider Specialty Family Medi cine Referred Organization Unknown Facility Referred Provider Specialty Pain Medicin e Referral Priority Routine Reason due for repeat colon oscopy Diagnosis 1 Colon cancer screeni ng (Z12.11) Referral Organization [facility] [place] Referring Provider First Name Morean Referring Provider Last Name Schwerer Referring Provider Specialty Family Medi cine Referred Organization Unknown Facility Referred Provider Specialty Gastroentero logy Referral Priority Routine Additional Source Comments REASON FOR VISIT (unrecogniz ed section and content) 2 month Follow upREFILLHEP C -APPROVED#5 COVID EXPOSURE, SOB, HEADACHE, BODY ACHES, COUGHMEDICATIONREFILLNo Information3 month Follow upMED REFILLHospital visit FOLLOW UPNo InformationClinical Acute [id number] Acute IllnessPT HERE FOR FOLLOW UP [facility] [place] [facility] [place] ([facility] SENDING RECORDS FROM [facility])refill3 month Follow uprefillrefillrefill3 month Follow uprefilllabsAsthma-COPD overlap syndrome and GERDNo InformationrefillH[facility]CREST [facility] [place] Follow [id number] f/ucommoderefillNo InformationNo Information3 mo f/urefill3 month Follow rpiwyiubA9x, needs rf of OzempicNo InformationNo Information4 month Follow upREFF BY SCAR LUND FOR LUMBAR RADICULOPATHYPAIN MANAGEMENT CONSULTBILATERAL L4 TRANSFORAMINAL EPIDURAL INJ/ELFOLLOW UP AFTER [facility] LTR Care Teams (unrecognized sec tion and content) Team Status: Active Member Role Status Dates Morena Bravo DO Primary Care Provider Active Team Status: Active Member Role Status Dates Morena Bravo , DO Primary Care Provider Active Start: June 18, 2023 Juliane Ribeiro , ABE Attending Provider Active Start: June 18, 2023 Team Status: Active Member Role Status Dates Morena Bravo , DO Primary Care Provider Active Start: July 21, 2023 Yanelis Sanchez [employer] Attending Provider Active Start: July 21, 2023 Team Status: Inactive Member Role Status Dates Morena Bravo , DO Primary Care Pro vider, Attending Provider Active Start: July 27, 2023 End: July 27, 2023 Team Status: Inactive Member Role Status Dates Morena Bravo , DO Primary Care Provider Active Start: August [...] 2023 End: September 10, 2023 Nirav Trujillo DO Referring Provider Active St art: September [...] Member Role Status Dates Sanya Valadez MD Activity Therapy Specialist Active Morena Bravo DO Primary Care Provider [...] 09, 2023 End: November 09, 2023 Nirav Trujillo DO Attending Provider Active St art: November 09, 2023 End: November 09, 2023 Team Status: Active Member Role Status Dates Morena Bravo DO Primary Care Provider Active Start: November 10, 2023 Nirav Trujillo , DO Other Provider Active Start: November [...] 24, 2023 End: December 24, 2023 Nirav Trujillo , DO Attending Provider Active St art: December 24, 2023 End: December 24, 2023 Team Status: Inactive Member Role Status Dates Morena Bravo , DO Primary Care Pro vider, Attending Provider Active Start: January 27, 2024 End: January 27, 2024 Team Status: Active Member Role Status Dates Sanya Valadez MD Activity Therapy Specialist Active Garry Desir MD Primary Care Provider Active Team Status: Inactive Member Role Status Dates Nirav Trujillo , DO Attending Provider Active St art: March 24, 2024 End: March 24, 2024 Garry Desir MD Primary Care Provider Active Start: March 24, 2024 End: March 24, 2024 Team Status: Active Member Role Status Dates Sanya Valadez MD Activity Therapy Specialist Active Morena Bravo DO Primary Care Provider Active Garry Desir MD Primary Care Provider Active Team Status: Inactive Member Role Status Dates Nirav Trujillo , DO Attending Provider Active St art: June 27, 2024 End: June 27, 2024 Garry Desir MD Primary Care Provider Active Start: June 27, 2024 End: June 27, 2024 Goals (unrecognized section and content) Goals may be documented in a n alternate section INFORMATION SOURCE (unrecogn ized section and content) DATE CREATED AUTHOR 03/20/2022 [facility] DATE CREATED AUTHOR AUTHOR'S ORGANIZ ATION 11/17/2023 [facility] y[facility] FOR RECORDS PERTAINING TO PATIENTS [...] BE BASED ON THE PRIMARY CLINICAL RECORDS. [facility]. provides no warranty or guarantee of the accuracy or completeness of information in this document.
[2024-08-15 07:37] LABS: Basophils Percent Auto 0.4 % (0.2-2.0); Eosinophils Absolute Auto 0.1 10^3/uL (0.0-0.7); Eosinophils Percent Auto 1.4 % (0.9-7.0); Hematocrit 40.1 % (36.0-48.0); Hemoglobin 12.2 g/dL (12.0-16.0); Immature Granulocytes Abs Auto 0.01 10^3/uL (0.00-0.03); Immature Granulocytes Pct Auto 0.1 % (0.0-0.5); Lymphocytes Absolute Auto 2.4 10^3/uL (1.2-3.8); Lymphocytes Percent Auto 28.1 % (20.5-60.0); Mean Corpuscular HGB Conc 30.4 g/dL (29.9-35.2); Mean Corpuscular Hemoglobin 24.9 pg (26.7-34.0); Mean Corpuscular Volume 81.8 fL (81.0-99.0); Mean Platelet Volume 10.6 fL (9.5-13.5); Monocytes Absolute Auto 0.5 10^3/uL (0.3-0.8); Monocytes Percent Auto 6.4 % (1.7-12.0); Neutrophils Absolute Auto 5.3 10^3/uL (1.4-6.5); Neutrophils Percent Auto 63.6 % (43.0-75.0); Platelet Count 349 10^3/uL (150-450); Red Cell Distribution Width 15.4 % (11.0-15.0); White Blood Count 8.4 10^3/uL (4.0-11.0)
[2024-08-15 09:29] LABS: Estimated Average Glucose 128 mg/dL; Glycohemoglobin A1C 6.1 % (4.5-6.2)
[2024-08-15 09:47] LABS: Alanine Aminotransferase 18 U/L (14-59); Albumin Globulin Ratio 1.2; Albumin Level 3.7 g/dL (3.4-5.0); Alkaline Phosphatase 117 U/L (46-116); Anion Gap 12.5; Aspartate Amino Transferase 12 U/L (15-37); Bilirubin Total 0.2 mg/dL (0.2-1.0); Calcium 9.9 mg/dL (8.5-10.1); Carbon Dioxide 28.3 mmol/L (21.0-32.0); Chloride 104 mmol/L (98-107); Chol HDL Ratio 3.4; Cholesterol 178 mg/dL (<=200); Estimated GFR (African America >60 (>=60 mL/min/1.73m^2); Estimated GFR (Non-African Ame >60 (>=60 mL/min/1.73m^2); Free T3 2.62 pg/mL (2.18-3.98); Glucose 88 mg/dL (74-106); HDL Cholesterol 53 mg/dL (40-60); LDL Cholesterol Calculated 101.8 mg/dL; Potassium 4.8 mmol/L (3.5-5.1); Sodium 140 mmol/L (136-145); Thyroid Stimulating Hormone 1.725 uIU/mL (0.358-3.740); Total Protein 6.7 g/dL (6.4-8.2); Triglycerides 116 mg/dL (<=150); VLDL CHOLESTEROL 23.2 mg/dL
[2024-08-16 04:08] LABS: Insulin 27.8 uIU/mL (2.6-24.9)
== END 2024-08-15 07:02 | disposition home or self-care (01) ==
LOC: LAB 07:04
PROVIDERS: PCP Family Medicine; Visit Provider Family Medicine
DX: E78.5 Hyperlipidemia, unspecified (principal); E66.01 Morbid (severe) obesity due to excess calories; J44.9 Chronic obstructive pulmonary disease, unspecified; E11.42 Type 2 diabetes mellitus with diabetic polyneuropathy; E11.9 Type 2 diabetes mellitus without complications; J96.21 Acute and chronic respiratory failure with hypoxia; R53.83 Other fatigue; E03.9 Hypothyroidism, unspecified; E55.9 Vitamin D deficiency, unspecified; I11.0 Hypertensive heart disease with heart failure; I50.9 Heart failure, unspecified
CPT/HCPCS: 36415; 80053; 80061; 82306; 83036; 83525; 83540; 84436; 84443; 84481; 85025

== ENCOUNTER 2024-09-07 09:24 | Outpatient (OUT) | payer MEDICARE, SELFPAY ==
--- NOTE | 2024-09-07 09:27 | CT_ITS ---
The [address] [address] Patient Name: ESTELLE CARSON MRN: [id number] date: 1965 Sex: F Assigned Patient Location: CT Current Patient Location: CT Accession/Order Number: [id number] Exam Date: 09/07/2024 10:15 Report Date: 09/07/2024 10:17 At the request of: NIRAV ANGEL DO Procedure: CT lung screening low-dose CT CHEST WITHOUT CONTRAST, LOW DOSE SCREENING: CLINICAL DATA: A 58-year old current smoker COMPARISON: None TECHNIQUE: Noncontrast axial CT scan images of the chest were obtained under the low dose screening CT protocol. Coronal and sagittal reconstructed images were also submitted. FINDINGS: Mediastinum : Suboptimal evaluation due to low-dose technique. Thoracic aorta appears normal in caliber. Pulmonary trunk appears nondilated. No pericardial effusion. No lymphadenopathy. The esophagus is grossly unremarkable. Lungs: No focal consolidation, pneumothorax or pleural effusion. Trachea and distal airways appear patent. Right-sided pleural calcifications. There is associated right lung scarring. Right-sided fat-containing Bochdalek hernia. No suspicious noncalcified pulmonary nodule or mass. Upper abdomen: No acute findings. Bony thorax and chest wall: Soft tissues surrounding the chest wall demonstrate no acute findings. Osseous structures demonstrate degenerative change. CT/CT lung screening low-dose IMPRESSION: NO SUSPICIOUS PULMONARY NODULE OR MASS. LUNG - RADS Version 1.0 Assessment: Category 1, Negative (No nodules and definitely benign nodules). Management: Continue annual lung screening with LDCT in 12 months. Impression dictated by: Momo Saavedra Jr., D.O. 09/07/2024 10:17 AM Dictation Location: [place] [address] Electronically authenticated by: [id number] Y Date: 09/07/2024 10:17
== END 2024-09-07 09:25 | disposition home or self-care (01) ==
LOC: CT 09:24
PROVIDERS: PCP Family Medicine; Visit Provider Internal Medicine
DX: F17.219 Nicotine dependence, cigarettes, with unspecified nicotine-induced disorders (principal); Z12.2 Encounter for screening for malignant neoplasm of respiratory organs
CPT/HCPCS: 71271